=== PATIENT | female | born 1945 | race Caucasian/White ===

== ENCOUNTER 2021-12-13 00:09 | Emergency (ER) | payer MEDICARE, SELFPAY ==
--- NOTE | 2021-12-13 00:17 | ECG_ITS ---
Test Reason : SYNCOPE Blood Pressure : / mmHG Vent. Rate : 081 BPM Atrial Rate : 081 BPM P-R Int : 142 ms QRS Dur : 086 ms QT Int : 386 ms P-R-T Axes : 074 054 084 degrees QTc Int : 448 ms Normal sinus rhythm Nonspecific ST abnormality Abnormal ECG No previous ECGs available Referred By: Generic ED Physician Electronically Signed By:AGUSTÍN EUGENE MD
[2021-12-13 00:18] VITALS: BP 150/74; BP 155/71; PULSE 80; PULSE 82; RESP 16; TEMP 36.9; O2SAT 97; BMI 24.9
--- NOTE | 2021-12-13 00:25 | PC.NURSE ---
pt a&o, no sob or chest pain. pt placed on monitor, labs drawn and Ekg completed.
[2021-12-13 00:32] VITALS: BP 150/69; PULSE 76
[2021-12-13 00:32] LABS: Hematocrit 35.7 % (37.0-47.0); Hemoglobin 11.1 g/dl (12.0-16.0); Mean Corpuscular HGB Conc 31.1 g/dl (31.0-35.0); Mean Corpuscular Hemoglobin 27.5 pg (27.0-33.0); Mean Corpuscular Volume 88.4 fL (80.0-98.0); Mean Platelet Volume 9.5 fL (9.4-12.3); Platelet Count 479 X10*3/uL (160-400); Red Blood Count 4.04 X10*6/uL (4.20-5.50); Red Cell Distribution Width 16.4 % (11.0-16.0); White Blood Count 9.4 X10*3/uL (4.8-10.8)
[2021-12-13 00:33] VITALS: BP 137/75; BP 157/80; PULSE 84; PULSE 86
[2021-12-13 00:48] LABS: Troponin-I High Sensitivity < 3.5 ng/L (<3.5-17.0)
[2021-12-13 00:49] LABS: Alanine Aminotransferase 8 U/L (0-31); Albumin Level 4.4 g/dL (3.5-5.0); Alkaline Phosphatase 69 U/L (39-117); Anion Gap 13 (12-20); Aspartate Amino Transferase 16 U/L (5-31); Bilirubin Total 0.4 mg/dL (0.0-1.0); Blood Urea Nitrogen 19 mg/dL (9-16); Calcium 10.5 mg/dL (8.4-10.2); Carbon Dioxide 23 mmol/L (22-29); Chloride 106 mmol/L (96-108); Creatinine Clr Calc Pharmacy 34.9; Estimated Glomerular Filt Rate 51; Glucose Random 112 mg/dL (60-115); Potassium 4.3 mmol/L (3.3-5.1); Sodium 138 mmol/L (135-145); Total Protein 7.2 g/dL (6.5-8.0)
[2021-12-13 01:42] LABS: Ethanol < 10 mg/dL
--- NOTE | 2021-12-13 02:11 | ED_ITS ---
HPI - Syncope General Chief Complaint: Dizziness Stated Complaint: Syncope Time Seen by Provider: 12/13/21 00:22 Source: patient Mode of arrival: EMS History of Present Illness HPI narrative: 76-year-old female brought in by EMS after patient states she was sitting on a bench smoking a cigarette with a friend, got up to with cigarette out and sat back down and then began feeling ill and as she was walking back to her apartment she states she had to sit down abruptly, she did not fall, and then says that she woke up and her friend was calling the ambulance. She denies any prodrome of chest pain/palpitations/shortness of breath/dizzi ness/diaphoresis/nausea and states that she had no symptoms afterwards either. She denies any recent fever, chills, denies alcohol intake and denies any illicit drugs. Related Data Allergies Allergy/AdvReac Type Severity Reaction Status Date / Time oxycodone [OxyContin] Allergy Unknown hives Verified 03/13/13 00:00 From OXYCONTIN Allergy Unknown HIVES Uncoded 01/25/20 15:03 Review of Systems Review of Systems: Pertinent positives and negatives as stated in HPI 10 point review of systems is otherwise negative. PMFSH Past Medical History Source: nursing notes reviewed Social History Social History Advance Directives: No Physical Exam Vital Signs: Vital Signs: Last Vital Signs Temp 98.4 F 12/13/21 00:18 Pulse 84 12/13/21 00:33 Resp 16 12/13/21 00:18 BP 157/80 H 12/13/21 00:33 Pulse Ox 97 12/13/21 00:18 O2 Del Method 12/13/21 00:18 BMI result Body Mass Index 24.9 VITAL SIGNS: Reviewed. GENERAL: Elderly, well nourished, in no acute distress. HEAD: Normocephalic/atraumatic EYES: PERRLA, EOMI EARS: Ext canals without abnormality OROPHARYNX: no oral lesions noted, posterior pharynx clear LUNGS: Normal breath sounds. No adventitious sounds or accessory muscle use. SpO2<97> CARDIOVASCULAR: Regular rate and rhythm without noted murmurs, no carotid bruit, no JVD or lower extremity edema. ABDOMEN: Soft, non-tender, non-distended with bowel sounds. MUSCULOSKELETAL: No tenderness, deformities, or effusions noted on gross inspection. EXTREMITIES: No cyanosis, clubbing or edema. SKIN: Inspection of the skin reveals no rashes NEUROLOGIC: Alert and oriented x 4. Strength and sensation to light touch were grossly intact x 4. Course Course Course Narrative: 76-year-old female with 2 history and clinical presentation consistent with suspected vasovagal syncope, orthostatics were negative, no evidence on review of all investigations to suggest infection or new onset anemia patient states that she feels well and she ambulated around the department without difficulty. Suspect that patient had a vasovagal syncopal event. MDM - Syncope Lab Data Result diagrams: 12/13/21 00:24 12/13/21 00:24 Labs: Lab Results 12/13/21 12/13/21 12/13/21 Range/Units 00:24 00:24 00:24 WBC 9.4 (4.8-10.8) X10*3/uL RBC 4.04 L (4.20-5.50) X10*6/uL Hgb 11.1 L (12.0-16.0) g/dl Hct 35.7 L (37.0-47.0) % MCV 88.4 (80.0-98.0) fL MCH 27.5 (27.0-33.0) pg MCHC 31.1 (31.0-35.0) g/dl RDW 16.4 H (11.0-16.0) % Plt Count 479 H (160-400) X10*3/uL MPV 9.5 (9.4-12.3) fL Absolute Nucleated RBC 0.000 (0.0-0.012) X10*3/uL Nucleated RBC % (auto) 0.0 (0.0-0.2) /100WBC Sodium 138 (135-145) mmol/L Potassium 4.3 (3.3-5.1) mmol/L Chloride 106 (96-108) mmol/L Carbon Dioxide 23 (22-29) mmol/L Anion Gap 13 (12-20) BUN 19 H (9-16) mg/dL Creatinine 1.06 (0.5-1.4) mg/dL Estim Creat Clear Calc 34.9 Estimated GFR 51 Random Glucose 112 (60-115) mg/dL Calcium 10.5 H (8.4-10.2) mg/dL Total Bilirubin 0.4 (0.0-1.0) mg/dL AST 16 (5-31) U/L ALT 8 (0-31) U/L Alkaline Phosphatase 69 (39-117) U/L Troponin I High Sens < 3.5 (<3.5-17.0) ng/L Total Protein 7.2 (6.5-8.0) g/dL Albumin 4.4 (3.5-5.0) g/dL Ethyl Alcohol < 10 mg/dL ECG Data Attestation: I personally reviewed and interpreted this ECG as follows: Prior ECG tracings: not available for review Interpretation: Normal sinus rhythm, HR-81, no STEMI, AK/QRS/QTC are within normal limits. Discharge Plan Discharge Clinical Impression: Syncope, vasovagal Patient Disposition: Home, Self-Care Instructions: Syncope (ED) Additional Instructions: Follow-up with your primary care doctor on Wednesday morning. Return to the ER for worsening symptoms.
== END 2021-12-13 02:34 | disposition home or self-care (01) ==
PROVIDERS: Emergency Provider Student in an Organized Health Care Education/Training Program
DX: R55 Syncope and collapse (principal); F17.210 Nicotine dependence, cigarettes, uncomplicated
CPT/HCPCS: 36415; 80053; 82077; 84484; 85027; 93005; 99283

== ENCOUNTER 2022-02-04 18:05 | Observation (INO) | payer MEDICARE, SELFPAY ==
--- NOTE | ~2022-02-04 | XR_ITS ---
EXAMINATION: XR CHEST CLINICAL INFORMATION: Pneumonia COMPARISON: Prior chest January 2016 TECHNIQUE: 2 views of the chest were obtained. FINDINGS: Minimal linear density in the right base compatible scarring and/or discoid atelectasis not seen previously. Lungs otherwise clear. No effusions Calcification of the dorsal aorta unchanged. Cardiomediastinal and otherwise unremarkable. Bone and soft tissues: There are moderate compression fractures of 2 adjacent mid thoracic vertebral bodies possibly representing T6 and T7 new compared with the x-ray in 2016. XR/XR chest 2V IMPRESSION: No definite acute disease. Minimal scarring and/or discoid atelectasis at the right base. Compression fractures midthoracic vertebral body age indeterminate but new compared with prior x-ray 2016
[2022-02-04 19:48] VITALS: BP 175/81; PULSE 102; RESP 20; TEMP 36.9; O2SAT 98; BMI 24.7
[2022-02-04 20:09] LABS: Basophils Percent Auto 0.3 % (0-2); Eosinophils Absolute Auto 0.1 X10*3/uL (0.0-0.4); Eosinophils Percent Auto 0.9 % (0-4); Hemoglobin 7.4 g/dl (12.0-16.0); Imm Gran Abs Auto 0.04 X10*3/uL (0.00-0.03); Imm Gran Pct Auto 0.4 % (0.0-0.4); Lymphocytes Absolute Auto 1.2 X10*3/uL (1.2-4.9); Lymphocytes Percent Auto 11.4 % (20-40); MANUAL DIFF FLAG NO; Mean Corpuscular HGB Conc 29.6 g/dl (31.0-35.0); Mean Corpuscular Hemoglobin 27.9 pg (27.0-33.0); Mean Corpuscular Volume 94.3 fL (80.0-98.0); Mean Platelet Volume 9.2 fL (9.4-12.3); Monocytes Absolute Auto 0.7 X10*3/uL (0.1-1.2); Monocytes Percent Auto 6.5 % (2-11); Neutrophils Absolute Auto 8.1 x10*3/uL (2.0-8.3); Neutrophils Percent Auto 80.5 % (45-73); Platelet Count 680 X10*3/uL (160-400); Red Blood Count 2.65 X10*6/uL (4.20-5.50); Red Cell Distribution Width 20.1 % (11.0-16.0); White Blood Count 10.1 X10*3/uL (4.8-10.8)
[2022-02-04 20:27] LABS: COVID-19 Test Negative (Negative)
[2022-02-04 20:29] LABS: IDNOW Serial# 16C4AD1C; Influenza A Negative (Negative); Influenza B2 Negative (Negative)
[2022-02-04 20:30] LABS: Alanine Aminotransferase 13 U/L (0-31); Albumin Level 4.1 g/dL (3.5-5.0); Alkaline Phosphatase 67 U/L (39-117); Anion Gap 19 (12-20); Aspartate Amino Transferase 16 U/L (5-31); Bilirubin Total < 0.2 mg/dL (0.0-1.0); Blood Urea Nitrogen 15 mg/dL (9-16); Calcium 8.6 mg/dL (8.4-10.2); Carbon Dioxide 18 mmol/L (22-29); Chloride 106 mmol/L (96-108); Creatinine Clr Calc Pharmacy 58.2; Estimated Glomerular Filt Rate > 60; Glucose Random 100 mg/dL (60-115); Potassium 4.8 mmol/L (3.3-5.1); Sodium 138 mmol/L (135-145); Total Protein 6.7 g/dL (6.5-8.0)
[2022-02-05] VITALS (22 sets, daily range): BP systolic 101–172; BP diastolic 59–88; PULSE 87–108; RESP 16–28; TEMP 36.2–37.1; O2SAT 94–99; BMI 24.5
[2022-02-05] MEDS: LORazepam 1 MG TABLET PO (06:11)
--- NOTE | 2022-02-05 06:26 | ED_ITS ---
HPI - General Adult General Chief complaint: Upper Respiratory Symptoms Stated complaint: Sob Time Seen by Provider: 02/05/22 05:10 Source: patient Mode of arrival: ambulatory Limitations: no limitations History of Present Illness HPI narrative: 76-year-old female who presents emergency department for evaluation weakness, shortness of breath, dyspnea on exertion, nonproductive cough , nausea, vomiting and black diarrheal stool. Patient states that she had her influenza vaccination on 01/21/2022. She states that on 01/22/2022 she developed nausea and vomited several times. She denies any blood in the emesis. She also states that she developed loose, diarrheal stools which she describes as dark black. She states she has had black stools in the past and she takes iron. She states that the diarrhea resolved yesterday. She complains of feeling very weak, she has had intermittent headaches, she has felt short of breath and has had dyspnea on exertion. She states she has a cough which is nonproductive. The patient also states that she has restless leg syndrome in her legs have been very restless and she was unable to sleep. Related Data Allergies Allergy/AdvReac Type Severity Reaction Status Date / Time oxycodone [OxyContin] Allergy Unknown hives Verified 03/13/13 00:00 From OXYCONTIN Allergy Unknown HIVES Uncoded 01/25/20 15:03 Review of Systems Review of Systems: Yes all other systems are reviewed and are negative [facility] Past Medical History [facility] Narrative: past medical history: Hypertension, hyperlipidemia, rheumatoid arthritis, osteoporosis, restless leg syndrome, bleeding stomach ulcer 2019. Past surgical history: Neck surgery at [facility] on 01/12/2022, hysterectomy, right hip ORIF 2019. Social history: She smokes 1 pack of cigarettes per day times 56 years. She denies alcohol use. She denies drug use. Social History Social History Alcohol intake: never Patient Tobacco Use Status: Current everyday Tobacco user Use of substances other than those prescribed or required for medical reasons: No Advance Directives: No Advance Directives Information Provided: Yes Physical Exam ED Vital Signs: Vital Signs - 24 hr 02/04/22 19:48 02/05/22 01:15 02/05/22 02:10 Temperature 98.4 F 97.8 F Pulse Rate 102 H 100 103 H Respiratory Rate 20 19 22 H Blood Pressure 175/81 H 148/77 H 168/80 H Pulse Oximetry 98 99 98 Oxygen Delivery Method Room Air Room Air Room Air 02/05/22 03:03 02/05/22 04:02 02/05/22 06:20 Temperature Pulse Rate 87 87 Respiratory Rate 16 22 H Blood Pressure 156/87 H 168/88 H Pulse Oximetry 98 96 97 Oxygen Delivery Method Room Air Room Air Room Air BMI result Body Mass Index 24.7 Const General: cooperative and no acute distress Orientation/consciousness: oriented to person and oriented to place Limitations: no limitations HENMT Head: Yes normal to inspection, Yes normocephalic and Yes atraumatic Ears: external ears normal General nose exam: Normal external nose present Face and sinus: Yes normal facial exam Mouth: Normal oral and palatal mucosa present Throat: Yes posterior oropharynx normal Eyes General: appearance normal, both eyes and all related structures Pupils: Equal, round and reactive pupils present Neck Neck: Yes normal visual inspection, Yes no lymphadenopathy, Yes trachea midline and Yes supple Chest Chest palpation & inspection: normal inspection of the chest and normal palpation of entire chest wall Resp Effort & Inspection: normal respiratory effort and able to speak in complete sen tences Auscultation: clear to auscultation bilaterally Cardio Rate: regular rate Rhythm: regular rhythm Heart sounds: S1 normal heart sound present, S2 normal heart sound present and no murmurs GI Inspection: Yes normal to inspection Palpation (GI): Soft to palpation, nontender and no guarding Auscultation: normal bowel sounds Rectal Exam - Female: heme positive stool ( Brown stool, trace Hemoccult- positive) Rectal exam heme positive - female: trace General: Yes no CVA tenderness Back/Spine/Pelvis Back: no CVA tenderness Skin General skin exam: no rashes or lesions noted Neuro General: oriented to person and oriented to place Cranial nerves: Yes CN's II-XII intact bilaterally and Yes Equal, round and reactive pupils present Cognition (Neuro): normal cognition Motor exam (neuro): 5/5 motor strength present throughout Extrem General: Yes normal to inspection Psych Appearance: grossly normal Speech and movement: Normal speech and movement present Affect: normal affect Attitude: cooperative Thought process: Normal thought process present Thought content: Normal thought content present Course Course Course Narrative: 76-year-old female who presents emergency department for evaluation of weakness, shortness of breath, dyspnea on exertion, nonproductive cough , naus ea, vomiting and black diarrheal stools. vital signs revealed elevated blood pressure of 175/81 and elevated pulse of 102 otherwise unremarkable. Patient's abdominal exam revealed no tenderness, rectal exam revealed brown stool which was trace Hemoccult positive. Laboratory evaluation revealed a low H&H of 7.4 and 25 with a normal MCV of 94. This is compared to an H&H on 12/13/2021 11 and 35.7. Patient's CO2 was low at 18. COVID-19 and influenza were negative. Given the significant drop in hematocrit and her trace Hemoccult stools, concerned that the patient's dark black diarrhea may have been secondary to an upper GI bleed and I did discuss this with the patient. I did order 1 unit of packed red blood cells to be transfused. Patient was also given Protonix 80 mg IV given her history of gastric ulcer bleed. I will discuss admission with the covering hospitalist. [id number]: I did discuss the patient's presentation with the covering hospitalist, Dr. Powell who will admit the patient. He requested I consult Gastroenterology and I did discuss the patient's presentation with Dr. Tafoya who saw the patient in the emergency department. Dr. Tafoya wants the patient to be NPO and he will try to do an endoscopy on her today. Medical Decision Making Lab Data Result diagrams: 02/04/22 20:05 02/04/22 20:05 Labs: Lab Results 02/04/22 02/04/22 02/04/22 Range/Units 20:05 20:05 20:05 WBC 10.1 (4.8-10.8) X10*3/uL RBC 2.65 L D (4.20-5.50) X10*6/uL Hgb 7.4 L D (12.0-16.0) g/dl Hct 25.0 L D (37.0-47.0) % MCV 94.3 (80.0-98.0) fL MCH 27.9 (27.0-33.0) pg MCHC 29.6 L (31.0-35.0) g/dl RDW 20.1 H (11.0-16.0) % Plt Count 680 H D (160-400) X10*3/uL MPV 9.2 L (9.4-12.3) fL Immature Gran % (Auto) 0.4 (0.0-0.4) % Neut % (Auto) 80.5 H (45-73) % Lymph % (Auto) 11.4 L (20-40) % [place] % (Auto) 6.5 (2-11) % Eos % (Auto) 0.9 (0-4) % Baso % (Auto) 0.3 (0-2) % Lymph # (Auto) 1.2 (1.2-4.9) X10*3/uL [place] # (Auto) 0.7 (0.1-1.2) X10*3/uL Eos # (Auto) 0.1 (0.0-0.4) X10*3/uL Baso # (Auto) 0.0 (0.0-0.2) X10*3/uL Abs Immat Gran (auto) 0.04 H (0.00-0.03) X10*3/uL Absolute Neuts (auto) 8.1 (2.0-8.3) x10*3/uL Absolute Nucleated RBC 0.000 (0.0-0.012) X10*3/uL Nucleated RBC % (auto) 0.0 (0.0-0.2) /100WBC Sodium 138 (135-145) mmol/L Potassium 4.8 (3.3-5.1) mmol/L Chloride 106 (96-108) mmol/L Carbon Dioxide 18 L (22-29) mmol/L Anion Gap 19 (12-20) BUN 15 (9-16) mg/dL Creatinine 0.69 (0.5-1.4) mg/dL Estim Creat Clear Calc 58.2 Estimated GFR > 60 Random Glucose 100 (60-115) mg/dL Calcium 8.6 D (8.4-10.2) mg/dL Total Bilirubin < 0.2 (0.0-1.0) mg/dL AST 16 (5-31) U/L ALT 13 (0-31) U/L Alkaline Phosphatase 67 (39-117) U/L Total Protein 6.7 (6.5-8.0) g/dL Albumin 4.1 (3.5-5.0) g/dL COVID-19 (SHIMA) (Negative) COVID-19 Clin Com Influenza Type A (CRISTIN) Negative (Negative) Influenza Type B (CRISTIN) Negative (Negative) Influenza A & B Note See Note 02/04/22 Range/Units 20:05 WBC (4.8-10.8) X10*3/uL RBC (4.20-5.50) X10*6/uL Hgb (12.0-16.0) g/dl Hct (37.0-47.0) % MCV (80.0-98.0) fL MCH (27.0-33.0) pg MCHC (31.0-35.0) g/dl RDW (11.0-16.0) % Plt Count (160-400) X10*3/uL MPV (9.4-12.3) fL Immature Gran % (Auto) (0.0-0.4) % Neut % (Auto) (45-73) % Lymph % (Auto) (20-40) % [place] % (Auto) (2-11) % Eos % (Auto) (0-4) % Baso % (Auto) (0-2) % Lymph # (Auto) (1.2-4.9) X10*3/uL [place] # (Auto) (0.1-1.2) X10*3/uL Eos # (Auto) (0.0-0.4) X10*3/uL Baso # (Auto) (0.0-0.2) X10*3/uL Abs Immat Gran (auto) (0.00-0.03) X10*3/uL Absolute Neuts (auto) (2.0-8.3) x10*3/uL Absolute Nucleated RBC (0.0-0.012) X10*3/uL Nucleated RBC % (auto) (0.0-0.2) /100WBC Sodium (135-145) mmol/L Potassium (3.3-5.1) mmol/L Chloride (96-108) mmol/L Carbon Dioxide (22-29) mmol/L Anion Gap (12-20) BUN (9-16) mg/dL Creatinine (0.5-1.4) mg/dL Estim Creat Clear Calc Estimated GFR Random Glucose (60-115) mg/dL Calcium (8.4-10.2) mg/dL Total Bilirubin (0.0-1.0) mg/dL AST (5-31) U/L ALT (0-31) U/L Alkaline Phosphatase (39-117) U/L Total Protein (6.5-8.0) g/dL Albumin (3.5-5.0) g/dL COVID-19 (SHIMA) Negative (Negative) COVID-19 Clin Com See Note Influenza Type A (CRISTIN) (Negative) Influenza Type B (CRISTIN) (Negative) Influenza A & B Note Discharge Plan Discharge Clinical Impression: Acute GI bleeding, Anemia Patient Disposition: Admitted As Inpatient
[2022-02-05] MEDS: Pantoprazole Sodium 40 MG/10 ML VIAL 80 MG IVPUSH (08:25)
--- NOTE | 2022-02-05 08:28 | PM.EVENT ---
Event Note Date of Service: 02/05/22 Event Note: GI pt seen and examined, discussed with Dr Min, consult dicatated. We will evaluate her acute anemia and black stools with endoscopy today. She is aware of risks and benefits and agrees to proceed.
--- NOTE | 2022-02-05 08:51 | P.HPHOSP_ITS ---
History of Present Illness Date of Service: 02/05/22 Chief Complaint: shortness of breath This is a 76 year old F with a PMH of HTN, HLD, RA, Osteoporosis, RLS, peptic ulcer dx with bleeding in 2019 who presents to the ED with compalints of generalized weakness, shortness of breath with a non-productive cough with nausea and vomiting (non bloody) with dark stools. She reports that her symptoms have been on going for roughly the last 2 weeks since she received her influenza vaccination. She denies any bright red blood per rectum, but does report black stool which she has had before. However, she attributes them to being on iron supplementation. She denies any abdominal pain. ED work up revealed an h/h of 7.4/ (decreased from in December 2021). She has been given IV protonix, 1 unit of PRBC has been ordered. She has been seen by GI with plans for endoscopic evaluation. Review of Systems Review of Systems: negative except HPI [facility] Medical History (Updated 02/05/22 @ 09:40 by Dorota Werner RN) COPD (chronic obstructive pulmonary disease) Hypertension Osteoporosis Restless leg syndrome Pertinent family history: Obtained from previous records -- anemia in sister Surgical History (Updated 02/05/22 @ 09:36 by Dorota Werner RN) H/O neck surgery Status post hip surgery Social History Alcohol intake: never Patient Tobacco Use Status: Current everyday Tobacco user Tobacco use type: Cigarette Cigarette Packs Per Day: 0.5 Cigarettes Per Day: 10.0 Years Smoked: 56 Use of substances other than those prescribed or required for medical reasons: No Are you DNR?: No Advance Directives: No Advance Directives Information Provided: Yes Patient : No Meds Allergies Allergy/AdvReac Type Severity Reaction Status Date / Time oxycodone [OxyContin] Allergy Unknown hives Verified 03/13/13 00:00 From OXYCONTIN Allergy Unknown HIVES Uncoded 01/25/20 15:03 Active Medications: Current Medications Ondansetron HCl (Ondansetron Hcl 4 Mg/2 Ml Vial) 4 mg IVPUSH ONCE PRN PRN Reason: Nausea and Vomiting Home Medications Medication Instructions Recorded Confirmed Last Taken Type amlodipine 2.5 mg tablet 2.5 mg PO DAILY 02/05/22 02/05/22 Unknown History methotrexate sodium 2.5 mg tablet 4 tab PO QWEEK 02/05/22 02/05/22 Unknown History omeprazole 20 mg capsule,delayed 20 mg PO DAILY 02/05/22 02/05/22 Unknown History release pravastatin 40 mg tablet 40 mg PO DAILY 02/05/22 02/05/22 Unknown History ropinirole 1 mg tablet 2 mg PO TID 02/05/22 02/05/22 Unknown History Physical Exam Vital Signs and Narrative: Vital Signs: Last Vital Signs Temp 97.8 F 02/05/22 01:15 Pulse 104 H 02/05/22 08:27 Resp 18 02/05/22 08:27 BP 144/83 H 02/05/22 08:27 Pulse Ox 97 02/05/22 08:27 O2 Del Method 02/05/22 08:27 BMI result Body Mass Index 24.7 Const: Other: Constitutional - Awake and Alert, pacing in her room, appears pale Eyes - PERRLA, EOMI Cardiovascular - S1S2, RRR, No edema Respiratory - Normal lung expansion, Normal respiratory effort, No respiratory distress, CTA bilaterally Gastrointestinal - NT / ND; +BS; No rebound or guarding - No CVA tenderness Extremities - no calf tenderness bilaterally, no swelling Musculoskeletal - Normal inspection, normal ROM Skin - Warm/Dry Neurological - Alert & oriented x3, No focal deficit Psychological - Appropriate affect Results Labs CBC and Chem 7: 02/04/22 20:05 02/04/22 20:05 Labs: Laboratory Results - last 24 hr 02/04/22 02/04/22 02/04/22 20:05 20:05 20:05 MCV 94.3 MCH 27.9 MCHC 29.6 L RDW 20.1 H Plt Count 680 H D MPV 9.2 L Immature Gran % (Auto) 0.4 Neut % (Auto) 80.5 H Lymph % (Auto) 11.4 L [place] % (Auto) 6.5 Eos % (Auto) 0.9 Baso % (Auto) 0.3 Lymph # (Auto) 1.2 [place] # (Auto) 0.7 Eos # (Auto) 0.1 Baso # (Auto) 0.0 Abs Immat Gran (auto) 0.04 H Absolute Neuts (auto) 8.1 Absolute Nucleated RBC 0.000 Nucleated RBC % (auto) 0.0 Anion Gap 19 Estim Creat Clear Calc 58.2 Estimated GFR > 60 Random Glucose 100 Calcium 8.6 D Total Bilirubin < 0.2 AST 16 ALT 13 Alkaline Phosphatase 67 Total Protein 6.7 Albumin 4.1 COVID-19 (SHIMA) COVID-19 Clin Com Influenza Type A (CRISTIN) Negative Influenza Type B (CRISTIN) Negative Influenza A & B Note See Note Crossmatch 02/04/22 02/05/22 20:05 07:56 MCV MCH MCHC RDW Plt Count MPV Immature Gran % (Auto) Neut % (Auto) Lymph % (Auto) [place] % (Auto) Eos % (Auto) Baso % (Auto) Lymph # (Auto) [place] # (Auto) Eos # (Auto) Baso # (Auto) Abs Immat Gran (auto) Absolute Neuts (auto) Absolute Nucleated RBC Nucleated RBC % (auto) Anion Gap Estim Creat Clear Calc Estimated GFR Random Glucose Calcium Total Bilirubin AST ALT Alkaline Phosphatase Total Protein Albumin COVID-19 (SHIMA) Negative COVID-19 Clin Com See Note Influenza Type A (CRISTIN) Influenza Type B (CRISTIN) Influenza A & B Note Crossmatch See Detail Imaging Radiologist's Impressions: Impressions Chest X-Ray 02/04/22 20:23 IMPRESSION: No definite acute disease. Minimal scarring and/or discoid atelectasis at the right base. Compression fractures midthoracic vertebral body age indeterminate but new compared with prior x-ray 2015 Assessment and Plan (1) Acute GI bleeding: Status: Acute (2) Anemia: Status: Acute Plan 76 yo F with multiple medical problems who presents with a 2 week history of exertional fatigue, shortness of breath and cough. She is found to have occult blood testing positive with anemia which has significant dropped since her last values. She is suspected to have an upper GI bleed and will be admitted for further work up and treatment. 1. Acute blood loss anemia due to suspected upper GI bleed 1a. symptomatic anemia Seen by GI with plans to scope today Keep NPO tranfuse 1 unit IV PPI trend h/h 2. RLS requip 3. HTN hold bp meds today and restart after scope 4. HLD statin Full Code DVT pptx, mechanical due to suspected GI bleed. Quality Stroke Does the patient have a stroke diagnosis?: No VTE Prior VTE?: No VTE Risk Level:: Medical - moderate - high VTE Device Contraindication: N/A - Device Ordered VTE Drug Contraindication: Treatment Not Tolerated
--- NOTE | 2022-02-05 08:56 | P.CONAN_ITS ---
[facility] Active Problems Active Problems: All Active Problems (Updated 02/05/22 @ 08:29 by Dorota Werner RN) Acute GI bleeding (Acute) Anemia (Acute)arthritis dyslipidemia hypertension acid reflux Past Medical History Medical History Hypertension Patient : No Family History Family history of problems with anesthesia: No Surgical History Surgical History H/O neck surgery History of Problems with Anesthesia: No Social History Social History Alcohol intake: never Patient Tobacco Use Status: Current everyday Tobacco user Tobacco use type: Cigarette Cigarette Packs Per Day: 0.5 Cigarettes Per Day: 10.0 Years Smoked: 56 Use of substances other than those prescribed or required for medical reasons: No Are you DNR?: No Advance Directives: No Advance Directives Information Provided: Yes Patient : No Meds Allergies Allergy/AdvReac Type Severity Reaction Status Date / Time oxycodone [OxyContin] Allergy Unknown hives Verified 03/13/13 00:00 From OXYCONTIN Allergy Unknown HIVES Uncoded 01/25/20 15:03 Active Medications: Current Medications Acetaminophen (Acetaminophen 325 Mg Tablet) 650 mg PO Q6H PRN PRN Reason: Pain, Mild (Pain Scale 1-3) Ondansetron HCl (Ondansetron Hcl 4 Mg/2 Ml Vial) 4 mg IVPUSH ONCE PRN PRN Reason: Nausea and Vomiting Ondansetron HCl (Ondansetron Hcl 4 Mg/2 Ml Vial) 4 mg IVPUSH Q8H PRN PRN Reason: Nausea and Vomiting Sodium Chloride (0.9 % Sodium Chloride Flush 3 Ml Syringe) 3 ml IVFLUSH [facility] Home Medications Medication Instructions Recorded Confirmed Last Taken Type amlodipine 2.5 mg tablet 2.5 mg PO DAILY 02/05/22 02/05/22 Unknown History methotrexate sodium 2.5 mg tablet 4 tab PO QWEEK 02/05/22 02/05/22 Unknown History omeprazole 20 mg capsule,delayed 20 mg PO DAILY 02/05/22 02/05/22 Unknown History release pravastatin 40 mg tablet 40 mg PO DAILY 02/05/22 02/05/22 Unknown History ropinirole 1 mg tablet 2 mg PO TID 02/05/22 02/05/22 Unknown History Exam Exam Date and Time: February 05, 2022 0856 Height,Weight and Vital Signs: Height 5 ft 1 in Weight 59.3 kg Last Vital Signs Temp 97.8 F 02/05/22 01:15 Pulse 104 H 02/05/22 08:27 Resp 18 02/05/22 08:27 BP 144/83 H 02/05/22 08:27 Pulse Ox 97 02/05/22 08:27 O2 Del Method 02/05/22 08:27 Pertinent Lab Results Pertinent Lab Results: Laboratory Tests 02/04/22 02/04/22 02/04/22 20:05 20:05 20:05 WBC 10.1 RBC 2.65 L D Hgb 7.4 L D Hct 25.0 L D MCV 94.3 MCH 27.9 MCHC 29.6 L RDW 20.1 H Plt Count 680 H D MPV 9.2 L Immature Gran % (Auto) 0.4 Neut % (Auto) 80.5 H Lymph % (Auto) 11.4 L Brantley % (Auto) 6.5 Eos % (Auto) 0.9 Baso % (Auto) 0.3 Lymph # (Auto) 1.2 Brantley # (Auto) 0.7 Eos # (Auto) 0.1 Baso # (Auto) 0.0 Abs Immat Gran (auto) 0.04 H Absolute Neuts (auto) 8.1 Absolute Nucleated RBC 0.000 Nucleated RBC % (auto) 0.0 Sodium 138 Potassium 4.8 Chloride 106 Carbon Dioxide 18 L Anion Gap 19 BUN 15 Creatinine 0.69 Estim Creat Clear Calc 58.2 Estimated GFR > 60 Random Glucose 100 Calcium 8.6 D Total Bilirubin < 0.2 AST 16 ALT 13 Alkaline Phosphatase 67 Total Protein 6.7 Albumin 4.1 COVID-19 (SHIMA) COVID-19 Clin Com Influenza Type A (CRISTIN) Negative Influenza Type B (CRISTIN) Negative Influenza A & B Note See Note Crossmatch 02/04/22 02/05/22 20:05 07:56 WBC RBC Hgb Hct MCV MCH MCHC RDW Plt Count MPV Immature Gran % (Auto) Neut % (Auto) Lymph % (Auto) Brantley % (Auto) Eos % (Auto) Baso % (Auto) Lymph # (Auto) Brantley # (Auto) Eos # (Auto) Baso # (Auto) Abs Immat Gran (auto) Absolute Neuts (auto) Absolute Nucleated RBC Nucleated RBC % (auto) Sodium Potassium Chloride Carbon Dioxide Anion Gap BUN Creatinine Estim Creat Clear Calc Estimated GFR Random Glucose Calcium Total Bilirubin AST ALT Alkaline Phosphatase Total Protein Albumin COVID-19 (SHIMA) Negative COVID-19 Clin Com See Note Influenza Type A (CRISTIN) Influenza Type B (CRISTIN) Influenza A & B Note Crossmatch See Detail Airway Mallampati Class: III TM Dist: >3cm Neck ROM: Full Denture: Upper and Lower Heart: rrr Lungs: clear Assessment and Plan Final Anesthetic Review Family History of Problems with Anesthesia: No History of Problems with Anesthesia: No NPO: Yes ASA Class: III and Emergency Final Preanesthetic Review: No Changes in Pt Med Stat, Meds/Allgs Chart Reviewed, Consent Obtained/Reviewed and Anes Risks/Benef Reviewed Patient Risk: Intermediate Procedure Risk: Low Anesthetic Plan Anesthetic Plan: MAC: Disposition: Standard PACU
--- NOTE | 2022-02-05 08:58 | PC.NURSE ---
call to blood bank re: unit prbc ordered for this pt. antibody + ([facility] states will be a while before blood is ready). Call placed to Dr. Tafoya to verify if he wants blood to be transfusing prior to endoscopy. Due to no active bleed and pt is stable, ok to transfuse after endoscopy.
--- NOTE | 2022-02-05 09:37 | PC.NURSE ---
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 Dr. Chiu anesthesiologist at bedside to eval pt. & aware.warm blankets to legs bilat restless leg syndrome
--- NOTE | 2022-02-05 09:45 | PC.NURSE ---
legs elevated & wrapped with warm blankets. warm blankets tolerated briefly.
--- NOTE | 2022-02-05 09:46 | PC.NURSE ---
2 rails up for safety - pt agrees - for safety for constant movements, c/o discomfort, using rails for reposition. iv wrapped.
--- NOTE | 2022-02-05 10:00 | CONS_ITS ---
DATE OF SERVICE: 02/05/2022 REFERRING PHYSICIAN: Noe Min MD REASON FOR CONSULTATION: GI bleeding. HISTORY OF PRESENT ILLNESS: The patient is a pleasant 76-year-old woman who was evaluated in the emergency department today after presenting with complaints of shortness of breath and weakness as well as black stools. She was vaccinated for the flu on January 21 and then developed nausea and vomiting without hematemesis. Following that, she had black stool that was loose and diarrheal. She does take iron and thought this was the cause of the black stool. She had associated weakness, headaches and malaise as well as some dyspnea on exertion and nonproductive cough. She was evaluated in the emergency department with laboratory studies, which showed a drop in her hematocrit from 35.7 on December 13 to . Stool on rectal examination was described as brown and occult blood positive. The patient does describe a history of prior peptic ulcer disease. She does smoke but denies significant alcohol intake. PAST MEDICAL HISTORY: 1. Peptic ulcer disease. 2. Restless legs syndrome. 3. Hypertension. 4. Hyperlipidemia. 5. Rheumatoid arthritis for which she is on methotrexate but does not take NSAIDs. 6. Osteoporosis. 7. Neck surgery. 8. Hysterectomy. 9. Hip surgery. 10.Hyperparathyroidism, s/p parathyroidectomy. CURRENT MEDICATIONS: Current medication list is reviewed in the chart. ALLERGIES: OXYCODONE. FAMILY HISTORY: This is reviewed with the patient and is noncontributory. SOCIAL HISTORY: There is no current substance abuse. REVIEW OF SYSTEMS: SKIN: No pruritus. HEENT: Negative. CARDIOPULMONARY: No shortness of breath or chest pain. GASTROINTESTINAL: As above. GENITOURINARY: Negative. NEUROPSYCHIATRIC: Negative. PHYSICAL EXAMINATION: GENERAL: Shows a pleasant female who is walking about her exam room in the emergency department because of her restless legs syndrome. VITAL SIGNS: Stable. SKIN: Anicteric. HEENT: Shows no scleral icterus. NECK: Without lymphadenopathy or thyromegaly. LUNGS: Clear. HEART: Shows a regular rate and rhythm S1, S2. No murmur. ABDOMEN: Soft without focal masses or tenderness. Bowel sounds are present. No organomegaly is noted. EXTREMITIES: Without edema. LABORATORY DATA: Reviewed. IMPRESSION: Anemia with history of black stools. This appears consistent with upper GI bleeding, possibly from a peptic ulcer disease. I have discussed endoscopy with including risks and benefits of the procedure. She understands and agrees to proceed. This will be arranged for later today. She will be transfused 1 unit of packed red blood cells for her acute anemia. I would recommend she continue on a proton pump inhibitor, which she has been on as an outpatient. Thanks for asking me to see her. I will follow her in the hospital with you. MD REGAN Diamond/TONY / [id number] MTDD
--- NOTE | 2022-02-05 10:26 | P.BOP_ITS ---
Brief Operative Note Date of Service: 02/05/22 Pre-op diagnosis: anemia, black stool Post-op diagnosis: same Procedure: egd Surgeon: Mayank Tafoya Anesthesia: MAC Was an Business Technology Teacher used for this Procedure?: No Estimated blood loss (mL): 2 Pathology: other Condition: stable Disposition: PACU
--- NOTE | 2022-02-05 10:37 | PM.EVENT ---
Event Note Date of Service: 02/05/22 Event Note: EGD dictated mild gastritis, antral biopsies taken 2 nonbleeding small duodenal avms, no therapy performed. rec advance diet transfuse cont ppi ok for dc later f/u with [facility] at [place].
[2022-02-05] MEDS: rOPINIRole HCL 1 MG TABLET 2 MG PO ×3 (11:00→19:16)
[2022-02-05] MEDS: Acetaminophen 325 MG TABLET 650 MG PO ×2 (14:08→19:17)
[2022-02-06 03:15] VITALS: PULSE 92; RESP 18; TEMP 36.6; O2SAT 98
[2022-02-06 03:43] VITALS: BP 175/83
[2022-02-06] MEDS: Omeprazole 20 MG CAPSULE.DR PO (06:38)
[2022-02-06 07:16] LABS: Hematocrit 27.9 % (37.0-47.0); Hemoglobin 8.4 g/dl (12.0-16.0); Mean Corpuscular HGB Conc 30.1 g/dl (31.0-35.0); Mean Corpuscular Hemoglobin 27.8 pg (27.0-33.0); Mean Corpuscular Volume 92.4 fL (80.0-98.0); Mean Platelet Volume 9.3 fL (9.4-12.3); Platelet Count 544 X10*3/uL (160-400); Red Blood Count 3.02 X10*6/uL (4.20-5.50); Red Cell Distribution Width 19.2 % (11.0-16.0)
--- NOTE | 2022-02-06 07:27 | HO.POSTANES ---
Post Anesthesia Evaluation Post Anesthesia Evaluation Vital Signs: Vital Signs Temp Pulse Resp BP Pulse Ox O2 Del Method 02/06/22 03:43 175/83 H 02/06/22 03:15 97.9 F 92 18 98 Room Air 02/05/22 23:16 98.1 F 100 18 167/79 H 94 Room Air 02/05/22 19:43 98.8 F 101 H 20 153/74 H 96 Room Air Anesthesia: Monitored Mental Status: Awake Pain Control: Satisfactory Nausea/Vomiting: None Hydration: Adequate Anesthesia-Related Issues: No Anes. Related Issues
[2022-02-06 07:35] LABS: Anion Gap 17 (12-20); Blood Urea Nitrogen 9 mg/dL (9-16); Calcium 8.6 mg/dL (8.4-10.2); Carbon Dioxide 19 mmol/L (22-29); Chloride 108 mmol/L (96-108); Creatinine Clr Calc Pharmacy 66.8; Estimated Glomerular Filt Rate > 60; Glucose Random 97 mg/dL (60-115); Potassium 4.2 mmol/L (3.3-5.1); Sodium 140 mmol/L (135-145)
[2022-02-06 07:37] VITALS: BP 178/83; PULSE 93; RESP 18; TEMP 36.4; O2SAT 99
[2022-02-06] MEDS: rOPINIRole HCL 1 MG TABLET 2 MG PO (09:19)
[2022-02-06] MEDS: amLODIPine Besylate 2.5 MG TABLET PO (09:19)
[2022-02-06] MEDS: Pravastatin Sodium 40 MG TABLET PO (09:19)
[2022-02-06] MEDS: 0.9 % Sodium Chloride Flush 3 ML SYRINGE IVFLUSH (09:20)
--- NOTE | 2022-02-06 09:43 | MHC.CM.PN ---
BETITO DELIVERED 02/06 CM MET WITH PT, LIVES ALONE IN AN APARTMENT WITH CAT. INDEPENDENT AT BASELINE, HAS FRIEND THAT ASSISTS HER WITH RIDES. HAS WALKER, CANE AND GRAB BARS IN BR. NO SERVICES AT HOME. - HCP, DECLINES TO NAME ONE. COVID SHARAD X 3 WITH PFIZER. 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
[2022-02-06 10:57] VITALS: BP 136/70; PULSE 85; RESP 16; TEMP 36.3; O2SAT 99
--- NOTE | 2022-02-06 11:41 | P.DS_ITS ---
DS: Providers Provider Date of Service: 02/06/22 Date of admission: 02/05/22 08:49 Date of discharge: 02/06/22 Primary care physician: Jolynn Jasmine NP Consults: 02/05/22 07:39 Consult to Gastroenterology Stat Consulting Provider: Mayank Tafoya Reason for consultation: black diarrheal stool x1 week, H/O gastric bleed, anemia Has provider been notified: Yes 02/05/22 08:49 Consult to Gastroenterology Routine Consulting Provider: Mayank Tafoya Reason for consultation: UGI Has provider been notified: Yes Attending physician on discharge: Jose J Dykes Discharging clinician: Devika Cho DS: Diagnosis Discharge Diagnosis (1) Acute GI bleeding: Status: Acute (2) Anemia: Status: Acute DS: Summary Hospital Course Hospital Course: From H&P on day of admission This is a 76 year old F with a PMH of HTN, HLD, RA, Osteoporosis, RLS, peptic ulcer dx with bleeding in 2019 who presents to the ED with compalints of generalized weakness, shortness of breath with a non- productive cough with nausea and vomiting (non bloody) with dark stools. She reports that her symptoms have been on going for roughly the last 2 weeks since she received her influenza vaccination. She denies any bright red blood per rectum, but does report black stool which she has had before. However, she attributes them to being on iron supplementation. She denies any abdominal pain. ED work up revealed an h/h of 7.4/25 (decreased from 11/35 in December 2021). She has been given IV protonix, 1 unit of PRBC has been ordered. She has been seen by GI with plans for endoscopic evaluation. Acute blood loss anemia secondary to upper GI bleeding/symptomatic anemia Patient was seen in consultation by GI who recommended endoscopy. She underwent endoscopy February 05 showing gastritis and 2 nonbleeding duodenal AVMs which did not require intervention. she received 1 unit of blood and her H/ H has improved and remained stable overnight. Vital signs have remained stable. Shortness of breath has resolved. She will continue her PPI and call to schedule follow-up appointment with GI. Recommend to repeat CBC early next week. Time Spent with Patient Time attestation: Total time spent providing and/or coordinating discharge services: Discharge coordination time: Greater than 30 minutes Quality: Safe Use of Opioids Does Pt have an Active Cancer Diagnosis on the Problem List?: No Quality: Stroke Does the patient have a stroke diagnosis?: No Physical Exam Vital Signs: Vital Signs: Last Vital Signs Temp 97.4 F 02/06/22 10:57 Pulse 85 02/06/22 10:57 Resp 16 02/06/22 10:57 BP 136/70 02/06/22 10:57 Pulse Ox 99 02/06/22 10:57 O2 Del Method 02/06/22 10:57 BMI result Body Mass Index 24.5 Const: General: cooperative, healthy appearing, comfortable, no acute distress, alert and awake Orientation/consciousness: patient oriented x3 Resp: Effort & Inspection: normal respiratory effort and able to speak in complete sentences Auscultation: clear to auscultation bilaterally Cardio: Rate: regular rate Heart sounds: S1 normal heart sound present and S2 normal heart sound present GI: Inspection: No distended Palpation (GI): Soft to palpation and nontender Neuro: General: patient oriented x3 Extrem: General: Yes no pedal edema DS: Data Data Completed and Pending Pending studies at discharge: Pending at discharge 02/05/22 10:19 Surgical [PTH] Routine Labs on day of discharge: Laboratory Results - last 24 hr 02/05/22 02/06/22 02/06/22 07:56 06:13 06:13 WBC 8.0 RBC 3.02 L Hgb 8.4 L Hct 27.9 L MCV 92.4 MCH 27.8 MCHC 30.1 L RDW 19.2 H Plt Count 544 H MPV 9.3 L Absolute Nucleated RBC 0.000 Nucleated RBC % (auto) 0.0 Sodium 140 Potassium 4.2 Chloride 108 Carbon Dioxide 19 L Anion Gap 17 BUN 9 Creatinine 0.60 Estim Creat Clear Calc 66.8 Estimated GFR > 60 Random Glucose 97 Calcium 8.6 Blood Type A Positive Antibody Screen POSITIVE Antibody Identification Inconclusive Antigen Identification K Antigen - NEGATIVE Crossmatch See Detail Crossmatch (AHG) See Detail Blood Bank Comment Technical Discharge Plan Discharge Patient Disposition: Home, Self-Care Referrals: Mayank Tafoya [Physician] - 1 Week Jolynn Jasmine NP [Primary Care Provider] - 1 Week Discharge Medications: Continued ropinirole 1 mg tablet 2 mg PO TID pravastatin 40 mg tablet 40 mg PO DAILY amlodipine 2.5 mg tablet 2.5 mg PO DAILY methotrexate sodium 2.5 mg tablet 4 tab PO QWEEK omeprazole 20 mg capsule,delayed release(DR/EC) 20 mg PO DAILY Discharge Orders: Discharge Order (Routine); Ordered 02/06/22 Ordered By: Devika Cho Activity on Discharge: As tolerated Stand Alone Forms: Patient Portal Discharge page Other Ambulatory Orders: Complete Blood Count no Diff (Routine) Timeframe: [id number] Facility: [facility] - Location: Laboratory Ordered By: Devika Cho Care Plan Goals: see below Health Concerns: anemia - improved after blood transfusion. and levels have remained stable overnight EGD showed mild gastritis and 2 nonbleeding small duaodenal AV malformations Plan of Treatment: continue to take omeprazole repeat CBC next week call to schedule follow up appointment with GI follow up results of biopsies taken from EGD monitor for signs of bleeding avoid NSAIDs, medications like motrin, ibuprofen, aspirin etc Assessment: see discharge summary Discharge Date/Time: 02/06/22 13:00
--- NOTE | 2022-02-06 12:19 | MHC.CM.PN ---
PT TO DC HOME TODAY WITH NO SERVICES FRIEND TO TRANSPORT
--- NOTE | 2022-02-11 03:23 | OP_ITS ---
SURGEON: Mayank Tafoya MD INDICATIONS: Anemia with history of black stools. PREOPERATIVE DIAGNOSIS: POSTOPERATIVE DIAGNOSIS: PROCEDURE PERFORMED: Upper endoscopy with biopsy. ESTIMATED BLOOD LOSS: COMPLICATIONS: ANESTHESIA: Monitored anesthesia care. ASSISTANTS: SPECIMENS: DESCRIPTION OF PROCEDURE: The procedure was done 02/05/2022. History and physical performed. The risks and benefits of the procedure were explained to the patient. Informed consent was obtained. The patient was placed in the left lateral decubitus position. The Olympus video gastroscope was introduced into the esophagus, stomach, and duodenum. Examination was performed. The scope was removed. She tolerated the procedure well and was taken to the recovery area in stable condition. FINDINGS: 1. Esophagus: The esophagus was normal. 2. Stomach: There was a small hiatal hernia. There was mild erythema, mainly in the antrum, consistent with antral gastritis. Biopsies were obtained. There was no GI bleeding. No ulcer was seen. 3. Duodenum: There were 2 small nonbleeding duodenal AVMs measuring 1 to 2 mm. No therapy was performed. IMPRESSION: 1. Gastritis. 2. Duodenal arteriovenous malformations. RECOMMENDATION: 1. Advance diet. 2. Continue proton pump inhibitor. 3. Transfuse p.r.n. 4. She may be discharged later today. She should follow up with her primary GI providers at [facility] at [facility]. MD REGAN Diamond/TONY / [id number]
== END 2022-02-06 13:00 | disposition home or self-care (01) ==
LOC: HO.ED 02-05 08:07 → HO.S3 02-06 07:23 → HO.EDOVER 02-11 10:02 → HO.ED 02-11 10:02
PROVIDERS: Internal Medicine Gastroenterology; Admitting Provider Family Medicine; Emergency Provider Emergency Medicine Emergency Medical Services; PCP Hospitalist; Visit Provider Physician Assistant Medical
PROC: (CPT 43239; principal; 2022-02-05 10:00)
DX: K29.70 Gastritis, unspecified, without bleeding (principal); K44.9 Diaphragmatic hernia without obstruction or gangrene; Q27.33 Arteriovenous malformation of digestive system vessel; D64.9 Anemia, unspecified; R53.1 Weakness; R53.83 Other fatigue; R06.02 Shortness of breath; R11.2 Nausea with vomiting, unspecified; Z20.822 Contact with and (suspected) exposure to COVID-19; I10 Essential (primary) hypertension; E78.5 Hyperlipidemia, unspecified; M06.9 Rheumatoid arthritis, unspecified; F17.210 Nicotine dependence, cigarettes, uncomplicated
CPT/HCPCS: 43239; 36415; 36430; 71046; 80048; 80053; 85025; 85027; 86850; 86870; 86900; 86901; 86902; 86905; 86920; 86922; 87502; 87635; 88305; 88342; 96374; 99218; 99285; P9016

== ENCOUNTER 2022-02-12 11:08 | Outpatient (REF) | payer MEDICARE, SELFPAY ==
[2022-02-12 14:24] LABS: Hematocrit 31.4 % (37.0-47.0); Hemoglobin 9.3 g/dl (12.0-16.0); Mean Corpuscular HGB Conc 29.6 g/dl (31.0-35.0); Mean Platelet Volume 9.5 fL (9.4-12.3); Platelet Count 683 X10*3/uL (160-400); Red Blood Count 3.45 X10*6/uL (4.20-5.50); Red Cell Distribution Width 18.3 % (11.0-16.0); White Blood Count 5.6 X10*3/uL (4.8-10.8)
== END 2022-02-12 11:09 | disposition home or self-care (01) ==
LOC: HO.WFDLDS 11:08
PROVIDERS: Visit Provider Hospitalist
DX: K92.2 Gastrointestinal hemorrhage, unspecified (principal); D64.9 Anemia, unspecified
CPT/HCPCS: 36415; 85027

== ENCOUNTER → 2022-02-18 12:33 | Outpatient (BNVA) | payer MEDICARE, SELFPAY | PROVIDERS: PCP Hospitalist; Referring Provider Hospitalist; Visit Provider Physician Assistant | DX: D64.9 Anemia, unspecified (principal) | CPT/HCPCS: 99202 ==

== ENCOUNTER 2022-02-19 11:25 | Outpatient (REF) | payer MEDICARE, SELFPAY ==
--- NOTE | ~2022-02-19 | MM_ITS ---
EXAMINATION: MM SCREENING DIGITAL BREAST TOMOSYNTHESIS, BILATERAL CLINICAL INFORMATION: Screening. Asymptomatic. No local outside prior exams founds by radiology staff search. The lifetime risk of breast cancer based on the Tyrer-Cuzick Model is 2%. COMPARISON: None (current study represents new baseline exam). TECHNIQUE: Digital breast tomosynthesis is performed in both the craniocaudal and mediolateral oblique views along with computer-aided detection (CAD). Synthesized 2D images are generated from the tomosynthesis. FINDINGS: There are scattered areas of fibroglandular density (ACR BI-RADS breast composition Category b). There are no significant masses, abnormal calcifications, or other abnormalities. No architectural abnormality. No skin thickening or coarsening of the Daniel's ligaments. MM/MM tomosynthesis screening BI IMPRESSION: No mammographic evidence of malignancy. ASSESSMENT: BI-RADS 1: Negative RECOMMENDATION: Routine annual mammography screening. This patient's information was entered into a reminder system with a target due date for their next mammogram.
[2022-02-19 12:02] LABS: MANUAL DIFF FLAG NO
[2022-02-19 12:49] LABS: Basophils Absolute Auto 0.1 X10*3/uL (0.0-0.2); Basophils Percent Auto 1.1 % (0-2); Eosinophils Absolute Auto 0.1 X10*3/uL (0.0-0.4); Hematocrit 30.7 % (37.0-47.0); Hemoglobin 8.9 g/dl (12.0-16.0); Imm Gran Abs Auto 0.02 X10*3/uL (0.00-0.03); Imm Gran Pct Auto 0.4 % (0.0-0.4); Lymphocytes Absolute Auto 1.4 X10*3/uL (1.2-4.9); Mean Corpuscular Hemoglobin 25.9 pg (27.0-33.0); Mean Corpuscular Volume 89.2 fL (80.0-98.0); Mean Platelet Volume 9.3 fL (9.4-12.3); Monocytes Absolute Auto 0.5 X10*3/uL (0.1-1.2); Monocytes Percent Auto 9.6 % (2-11); Neutrophils Absolute Auto 3.6 x10*3/uL (2.0-8.3); Neutrophils Percent Auto 62.9 % (45-73); Platelet Count 712 X10*3/uL (160-400); Red Blood Count 3.44 X10*6/uL (4.20-5.50); Red Cell Distribution Width 17.6 % (11.0-16.0); White Blood Count 5.6 X10*3/uL (4.8-10.8)
[2022-02-19 13:28] LABS: Iron 19 mcg/dL (30-160); Percent Iron Saturation 5 % (15-50); Total Iron Binding Capacity 415 mcg/dL (228-428); Unsaturated Iron Binding 396 ug/dL
[2022-02-19 14:28] LABS: Folate > 20.0 ng/mL (> or = 4.0); Vitamin B12 254 pg/mL (200-900)
[2022-02-23 21:56] LABS: Transglutaminase IgA <1.0 U/mL
[2022-02-27 13:46] LABS: Endomysial IgA Antibody Negative (Negative)
== END 2022-02-19 11:26 | disposition home or self-care (01) ==
LOC: HO.MAMMO 11:25
PROVIDERS: Absent Provider Physician Assistant; PCP Hospitalist; Visit Provider Hospitalist
DX: Z12.31 Encounter for screening mammogram for malignant neoplasm of breast (principal); D64.9 Anemia, unspecified
CPT/HCPCS: 36415; 77063; 77067; 82607; 82746; 83540; 85025; 86231; 86364

== ENCOUNTER 2022-03-23 11:39 | Inpatient (IN) | payer MEDICARE, SELFPAY ==
[2022-03-23] VITALS (8 sets, daily range): BP systolic 84–146; BP diastolic 52–78; PULSE 102–115; RESP 18–26; TEMP 36.7–37.4; O2SAT 90–96; BMI 22.6
--- NOTE | ~2022-03-23 | CT_ITS ---
EXAMINATION: CT ANGIOGRAM OF THE CHEST WITH AND WITHOUT CONTRAST (CT PULMONARY ANGIOGRAM FOR PE) CLINICAL INFORMATION: Reason for Exam syncope COMPARISON: None TECHNIQUE: Prior to contrast administration, noncontrast localization images were obtained. Subsequently, multidetector volumetric imaging was performed from the thoracic inlet to below the diaphragms following the administration of 65 mL Omnipaque 350 intravenous contrast. No contrast reaction reported Sagittal, coronal, and MIP oblique sagittal reformatted images were obtained on the CT workstation, uploaded to PACS, and reviewed. This CT examination was performed using dose optimization techniques as appropriate, variously including the following: *Automated exposure control *Adjustment of mA and/or kV according to patient size (this includes techniques or standardized protocols for targeted exams where dose is matched to indication/reason for exam; i.e. extremities or head) *Use of iterative reconstruction technique Total exam dose-length product 280 mGy-cm FINDINGS: QUALITY OF STUDY/CONTRAST BOLUS: Suboptimal. PULMONARY ARTERIES: No central pulmonary embolus. Slightly limited assessment for detecting segmental pulmonary emboli in the left lower lobe due to motion artifact. Allowing for this, no segmental pulmonary emboli are seen. THORACIC AORTA: No aneurysm or dissection. Moderate vascular calcifications. Direct origin of the left vertebral artery from the aortic arch and conjoined origin of the innominate and left common carotid arteries noted. LUNG: No airspace consolidation. Mild right basilar and lingular subsegmental atelectasis. No pulmonary nodules identified. Minimal foamy secretions or mucous in the distal trachea right mainstem bronchus. Minimal scattered bronchial wall thickening. No bronchiectasis. PLEURA: No pleural effusion or pneumothorax. MEDIASTINUM: Normal heart size. No pericardial effusion. Coronary artery vascular calcifications are present. No mediastinal or hilar lymphadenopathy. No evidence of septal bowing or right heart strain. CHEST WALL/AXILLA: No axillary or internal mammary lymphadenopathy. OSSEOUS STRUCTURES: No acute or suspicious osseous abnormality. Bilateral rib fracture deformities. Anterior wedge compression deformities of T6 and T7, presumably chronic. Mild multilevel degenerative disc disease. UPPER ABDOMEN: 1.7 cm splenule. Colonic diverticulosis at the splenic flexure. Imaged upper abdominal viscera otherwise unremarkable. No reflux of contrast into the hepatic veins to suggest elevated right heart pressures. CT/CT angio chest PE protocol IMPRESSION: 1. No evidence of central or segmental pulmonary embolus. Slightly limited assessment for detecting segmental pulmonary emboli in the left lower lobe due to motion artifact. 2. Mild right basilar and lingular atelectasis. No airspace consolidation or effusions. VTE: Negative with slight limitation as above.
--- NOTE | ~2022-03-23 | CT_ITS ---
EXAMINATION: CT BRAIN AND CT CERVICAL SPINE WITHOUT CONTRAST. CLINICAL INFORMATION: Syncope. COMPARISON: None TECHNIQUE: 5 mm thin axial and reformatted 2 mm thin sagittal and coronal images of brain were obtained. Subsequently axial 3 mm thin and reformatted 2 mm thin sagittal and coronal images of cervical spine were obtained. DLP 933 mGy/cm FINDINGS: Brain: There is no acute intra-axial, extra-axial bleed, masses, collection or midline shift. There is diffuse periventricular hypodensity in both cerebral hemispheres without mass effect. There is no acute infarction in evolution. Small lacunar infarction seen in the right external capsule. Bone windows reveal no calvarial abnormality. No scalp abnormality seen either. Bilateral paranasal sinuses and mastoid air cells are well aerated. Cervical spine: There is normal cervical lordosis. There is grade 1 anterolisthesis C5 over C6. Rest the vertebral alignment is normal. The craniovertebral junction and C1-C2 alignment is normal. There is moderate left C3-C4, C4-C5 and C5-C6 facet joint arthropathy and hypertrophy. No visible acute fracture, dislocation or subluxation seen. The prevertebral and paravertebral soft tissues are normal. The airways widely patent. The lung apices are clear.. CT/CT cervical spine wo IV con IMPRESSION: No acute intracranial process seen. Age-related brain with chronic small vessel ischemic changes in both cerebral hemispheres. Grade 1 anterolisthesis C5-C6 with moderate left facet arthropathy as well. No visible acute fracture, dislocation or lytic process seen.
--- NOTE | ~2022-03-23 | XR_ITS ---
EXAMINATION: XR CHEST CLINICAL INFORMATION: Weakness. COMPARISON: Chest radiograph dated 02/04/2022. TECHNIQUE: Frontal view of the chest was obtained. FINDINGS: No significant abnormality is noted involving the heart, lungs, mediastinum, bony thorax or soft tissues. There is stable biapical pleural thickening. There are atherosclerotic calcifications of the aortic knob. XR/XR chest 1V IMPRESSION: No active cardiopulmonary disease
--- NOTE | ~2022-03-23 | CT_ITS ---
EXAMINATION: CT BRAIN AND CT CERVICAL SPINE WITHOUT CONTRAST. CLINICAL INFORMATION: Syncope. COMPARISON: None TECHNIQUE: 5 mm thin axial and reformatted 2 mm thin sagittal and coronal images of brain were obtained. Subsequently axial 3 mm thin and reformatted 2 mm thin sagittal and coronal images of cervical spine were obtained. DLP 933 mGy/cm FINDINGS: Brain: There is no acute intra-axial, extra-axial bleed, masses, collection or midline shift. There is diffuse periventricular hypodensity in both cerebral hemispheres without mass effect. There is no acute infarction in evolution. Small lacunar infarction seen in the right external capsule. Bone windows reveal no calvarial abnormality. No scalp abnormality seen either. Bilateral paranasal sinuses and mastoid air cells are well aerated. Cervical spine: There is normal cervical lordosis. There is grade 1 anterolisthesis C5 over C6. Rest the vertebral alignment is normal. The craniovertebral junction and C1-C2 alignment is normal. There is moderate left C3-C4, C4-C5 and C5-C6 facet joint arthropathy and hypertrophy. No visible acute fracture, dislocation or subluxation seen. The prevertebral and paravertebral soft tissues are normal. The airways widely patent. The lung apices are clear.. CT/CT head/brain wo IV con IMPRESSION: No acute intracranial process seen. Age-related brain with chronic small vessel ischemic changes in both cerebral hemispheres. Grade 1 anterolisthesis C5-C6 with moderate left facet arthropathy as well. No visible acute fracture, dislocation or lytic process seen.
--- NOTE | ~2022-03-23 | XR_ITS ---
EXAMINATION: XR KNEE, RIGHT CLINICAL INFORMATION: Pain. COMPARISON: None TECHNIQUE: AP, lateral, and both oblique views of the right knee. FINDINGS: There is bony demineralization. There is moderate asymmetric narrowing of the lateral joint space compartment, and the medial joint space compartment is well-maintained. The patellofemoral joint space compartment is well-maintained. There is no fracture or dislocation. There is a small joint effusion. No foreign body is seen. There are femoral and infrapopliteal atherosclerotic calcifications. XR/XR knee RT 4V IMPRESSION: 1. There is moderate osteoarthritic change of the lateral joint space compartment of the right knee. 2. There is a small right knee joint effusion.
--- NOTE | 2022-03-23 12:05 | PC.NURSE ---
Neuros are intact at this time however pt unable to lift legs off bed d/t pain in knees. PERRLA B/L. C/O B/L knee pain since yesterday. Denies any injury at that time. ST on tele. Collared by EMS.
--- NOTE | 2022-03-23 13:00 | ECG_ITS ---
Test Reason : syncope Blood Pressure : / mmHG Vent. Rate : 103 BPM Atrial Rate : 103 BPM P-R Int : 112 ms QRS Dur : 080 ms QT Int : 360 ms P-R-T Axes : 056 057 074 degrees QTc Int : 471 ms Sinus tachycardia with occasional Premature ventricular complexes Nonspecific ST abnormality Abnormal ECG When compared with ECG of 13-DEC-2021 00:25, Premature ventricular complexes are now Present Heart rate has increased Referred By: Mya Domingo Electronically Signed By:ANAND MORELOS MD
--- NOTE | 2022-03-23 13:03 | ED_ITS ---
HPI - Syncope General Chief Complaint: Syncope Stated Complaint: SYNCOPE PER EMS Time Seen by Provider: 03/23/22 12:14 History of Present Illness HPI narrative: Patient is a 77-year-old female history of hypertension COPD. Was waiting for a ride for iron infusion. Next thing she knew she was found unconscious. Bystander noted patient kind of slid down. There was no specific complaints. No history of seizures. No seizure-like activity was noted. Patient was incontinence of stool. The stool was brown in color. Related Data Home Medications Medication Instructions Recorded Confirmed amlodipine 2.5 mg tablet 2.5 mg PO DAILY 02/05/22 03/23/22 methotrexate sodium 2.5 mg tablet 4 tab PO QWEEK 02/05/22 03/23/22 omeprazole 20 mg capsule,delayed 20 mg PO DAILY 02/05/22 03/23/22 release pravastatin 40 mg tablet 40 mg PO DAILY 02/05/22 03/23/22 ropinirole 1 mg tablet 2 mg PO TID 02/05/22 03/23/22 ferrous sulfate 325 mg (65 mg 325 mg PO DAILY 02/18/22 03/23/22 iron) tablet (Feosol) Previous Rx's Medication Instructions Recorded blood pressure monitor #1 ea 02/12/22 albuterol sulfate 90 mcg/actuation 2 puff inhalation Q4-6H PRN 02/16/22 aerosol inhaler (ProAir HFA) shortness of breath or wheezing 1 month #8.5 grams folic acid 1 mg tablet 1 mg PO DAILY #90 tabs 02/16/22 acetaminophen 325 mg capsule 650 mg PO Q6H PRN pain #30 caps 03/16/22 (Tylenol) Allergies Allergy/AdvReac Type Severity Reaction Status Date / Time oxycodone [From OxyContin] Allergy Mild Hives Verified 03/23/22 15:12 Review of Systems Review of Systems: Positive syncope Yes all other systems are reviewed and are negative [facility] Past Medical History Attestation statement: The following information was validated with the patient. Medical History (Updated 03/23/22 @ 15:21 by Mya Domingo MD) COPD (chronic obstructive pulmonary disease) Hypertension Osteoporosis Restless leg syndrome Surgical History (Updated 03/23/22 @ 15:14 by Ant Crain MD) H/O neck surgery H/O parathyroidectomy Status post hip surgery Family History Family History (Updated 03/23/22 @ 15:14 by Ant Crain MD) Father CAD (coronary artery disease) Social History Social History Housing: Apartment Alcohol intake: never Patient Tobacco Use Status: Current everyday Tobacco user Tobacco use type: Cigarette Cigarette Packs Per Day: 0.5 Cigarettes Per Day: 6 Years Smoked: 55 Smoked in Last 30 Days: Yes Second Hand Smoke Exposure: Yes Use of substances other than those prescribed or required for medical reasons: No Advance Directives: No Advance Directives Information Provided: Yes service: No Current occupational status: retired Physical Exam 2 Vital Signs: Vital Signs: Last Vital Signs Temp 98.1 F 03/23/22 11:52 Pulse 107 H 03/23/22 11:52 Resp 22 H 03/23/22 11:52 BP 131/74 03/23/22 11:52 Pulse Ox 95 03/23/22 12:02 O2 Del Method 03/23/22 12:02 BMI result Body Mass Index 22.6 Appearance: Alert. Oriented X3. No acute distress. Eyes: Pupils equal, round and reactive to light. ENT: Pharynx normal. Neck: Normal inspection. Neck supple. No lymph nodes noted. No crepitus CVS: Normal heart rate and rhythm. Pulses normal. Normal S1 and S2 Respiratory: No respiratory distress. Breath sounds normal. No Wheezing. No rales Abdomen: Soft and nontender. No rigidity. No distention. good BS x4 Skin: Skin warm and dry. Normal skin color. Normal skin turgor. Extremities: No lower extremity edema. + pain on palpation of the right knee, + effusion noted. Neurovascular intact to all extremities. No Lacerations. No Rash Neuro: Oriented X 3. No motor deficit. No sensory deficit. Moving all extermities. No slurred speech MDM - Syncope MDM Narrative Medical decision making narrative: Patient presents today with having a syncopal episode. Was coming to the hospital for an iron transfusion. When subsequently patient collapsed. Syncope? Question hitting her head. CT scan of the head was done. Grossly there was no bleeding final reading per Radiology still pending. Patient's hemoglobin came back at 6.6. Stool was heme positive. MCV was low. Likely iron deficiency anemia and blood lost. Patient's blood will be crossed. Will transfuse patient with 2 units. Risk and benefits of transfusion discussed with patient. Patient agreed to transfusion. Patient had extreme right knee pain. X-ray showed no acute fracture. Small amount of effusion. On exam patient had large amount of effusion. Consent was obtained. An 18 gauge needle was used to drain out approximately 30 cc of fluid from the joint. It was straw like in color. It was sent off for analysis. Case discussed with hospitalist team. Awaiting admissions. Differential Diagnosis Differential diagnosis: Likely syncope due to orthostatic hypotension Medical Records Attestation: I reviewed the patient's medical records. Lab Data Attestation: I reviewed the patient's lab results. Result diagrams: 03/23/22 14:05 03/23/22 14:05 Labs: Lab Results 03/23/22 03/23/22 03/23/22 Range/Units 14:05 14:05 14:05 WBC 15.5 H (4.8-10.8) X10*3/uL RBC 2.83 L (4.20-5.50) X10*6/uL Hgb 6.6 L* D (12.0-16.0) g/dl Hct 22.5 L D (37.0-47.0) % MCV 79.5 L (80.0-98.0) fL MCH 23.3 L (27.0-33.0) pg MCHC 29.3 L (31.0-35.0) g/dl RDW 18.7 H (11.0-16.0) % Plt Count 812 H (160-400) X10*3/uL MPV 9.2 L (9.4-12.3) fL Immature Gran % (Auto) 0.5 H (0.0-0.4) % Neut % (Auto) 85.8 H (45-73) % Lymph % (Auto) 4.4 L (20-40) % [place] % (Auto) 9.1 (2-11) % Eos % (Auto) 0.0 (0-4) % Baso % (Auto) 0.2 (0-2) % Lymph # (Auto) 0.7 L (1.2-4.9) X10*3/uL [place] # (Auto) 1.4 H (0.1-1.2) X10*3/uL Eos # (Auto) 0.0 (0.0-0.4) X10*3/uL Baso # (Auto) 0.0 (0.0-0.2) X10*3/uL Abs Immat Gran (auto) 0.08 H (0.00-0.03) X10*3/uL Absolute Neuts (auto) 13.3 H (2.0-8.3) x10*3/uL Absolute Nucleated RBC 0.000 (0.0-0.012) X10*3/uL Nucleated RBC % (auto) 0.0 (0.0-0.2) /100WBC Sodium 135 (135-145) mmol/L Potassium 4.3 (3.3-5.1) mmol/L Chloride 103 (96-108) mmol/L Carbon Dioxide 20 L (22-29) mmol/L Anion Gap 16 (12-20) BUN 13 (9-16) mg/dL Creatinine 0.70 (0.5-1.4) mg/dL Estim Creat Clear Calc 51.5 Estimated GFR > 60 Random Glucose 115 (60-115) mg/dL Calcium 8.6 (8.4-10.2) mg/dL Troponin I High Sens 6.5 (<3.5-17.0) ng/L Stool Occult Blood (NEGATIVE) 03/23/22 Range/Units 14:34 WBC (4.8-10.8) X10*3/uL RBC (4.20-5.50) X10*6/uL Hgb (12.0-16.0) g/dl Hct (37.0-47.0) % MCV (80.0-98.0) fL MCH (27.0-33.0) pg MCHC (31.0-35.0) g/dl RDW (11.0-16.0) % Plt Count (160-400) X10*3/uL MPV (9.4-12.3) fL Immature Gran % (Auto) (0.0-0.4) % Neut % (Auto) (45-73) % Lymph % (Auto) (20-40) % [place] % (Auto) (2-11) % Eos % (Auto) (0-4) % Baso % (Auto) (0-2) % Lymph # (Auto) (1.2-4.9) X10*3/uL [place] # (Auto) (0.1-1.2) X10*3/uL Eos # (Auto) (0.0-0.4) X10*3/uL Baso # (Auto) (0.0-0.2) X10*3/uL Abs Immat Gran (auto) (0.00-0.03) X10*3/uL Absolute Neuts (auto) (2.0-8.3) x10*3/uL Absolute Nucleated RBC (0.0-0.012) X10*3/uL Nucleated RBC % (auto) (0.0-0.2) /100WBC Sodium (135-145) mmol/L Potassium (3.3-5.1) mmol/L Chloride (96-108) mmol/L Carbon Dioxide (22-29) mmol/L Anion Gap (12-20) BUN (9-16) mg/dL Creatinine (0.5-1.4) mg/dL Estim Creat Clear Calc Estimated GFR Random Glucose (60-115) mg/dL Calcium (8.4-10.2) mg/dL Troponin I High Sens (<3.5-17.0) ng/L Stool Occult Blood POSITIVE (NEGATIVE) Procedures Joint Aspiration/Injection Joint Asp./Inject. 1: Time Out Performed: Yes Side of body: right Joint Aspirated: knee Ultrasound Guidance: No Skin Prep: Povidone-Iodine1% Local Anesthetic: lidocaine 1% Amount of anesthesia used (mL): 3 Needle Size Used: 18G Fluid Obtained: clear Total fluid obtained (mL): 30 Patient Tolerated Procedure: well Complications: none Critical Care Time Critical Care Time Critical Care Time: Yes Total Critical Care Time: 40 Attestation: I have personally provided 40 minutes of critical care time exclusive of time spent on separately billable procedures. Time includes review of lab data, radiology results, discussion with consultants, and monitoring for potential decompensation. Interventions were performed as documented above Discharge Plan Discharge Clinical Impression: Syncope, Anemia, Joint effusion Patient Disposition: Admitted As Inpatient Prescriptions: No Action albuterol sulfate [ProAir HFA] 90 mcg/actuation HFA aerosol inhaler 2 puff inhalation Q4-6H PRN (Reason: shortness of breath or wheezing) 30 Days Qty: 8.5 2RF folic acid 1 mg tablet 1 mg PO DAILY Qty: 90 3RF bisacodyl [Dulcolax (bisacodyl)] 5 mg tablet,delayed release (DR/EC) 10 mg PO ONCE 1 Days Qty: 2 0RF Rx Instructions: take orally as directed prior to colonoscopy polyethylene glycol 3350 [Miralax] 17 gram/dose powder 238 g PO ONCE 1 Days Qty: 238 0RF Rx Instructions: take orally as directed prior to colonoscopy ropinirole 1 mg tablet 2 mg PO TID pravastatin 40 mg tablet 40 mg PO DAILY amlodipine 2.5 mg tablet 2.5 mg PO DAILY methotrexate sodium 2.5 mg tablet 4 tab PO QWEEK omeprazole 20 mg capsule,delayed release(DR/EC) 20 mg PO DAILY (DME) blood pressure monitor Kit See Rx Instructions .Route Qty: 1 0RF Rx Instructions: check bp twice a week and when not feeling well acetaminophen [Tylenol] 325 mg capsule 650 mg PO Q6H PRN (Reason: pain) Qty: 30 0RF ferrous sulfate [Feosol] 325 mg (65 mg iron) tablet 325 mg PO DAILY bismuth subsalicylate [Pepto-Bismol] 262 mg/15 mL suspension 524 mg PO Q1H PRN Rx Instructions: do not exceed 8 doses in a 24 hour period
[2022-03-23 14:12] LABS: MANUAL DIFF FLAG NO
[2022-03-23 14:18] LABS: Basophils Percent Auto 0.2 % (0-2); Hematocrit 22.5 % (37.0-47.0); Imm Gran Abs Auto 0.08 X10*3/uL (0.00-0.03); Imm Gran Pct Auto 0.5 % (0.0-0.4); Lymphocytes Absolute Auto 0.7 X10*3/uL (1.2-4.9); Lymphocytes Percent Auto 4.4 % (20-40); Mean Corpuscular HGB Conc 29.3 g/dl (31.0-35.0); Mean Corpuscular Hemoglobin 23.3 pg (27.0-33.0); Mean Corpuscular Volume 79.5 fL (80.0-98.0); Mean Platelet Volume 9.2 fL (9.4-12.3); Monocytes Absolute Auto 1.4 X10*3/uL (0.1-1.2); Monocytes Percent Auto 9.1 % (2-11); Neutrophils Absolute Auto 13.3 x10*3/uL (2.0-8.3); Neutrophils Percent Auto 85.8 % (45-73); Platelet Count 812 X10*3/uL (160-400); Red Blood Count 2.83 X10*6/uL (4.20-5.50); Red Cell Distribution Width 18.7 % (11.0-16.0); White Blood Count 15.5 X10*3/uL (4.8-10.8)
[2022-03-23 14:21] LABS: Hemoglobin 6.6 g/dl (12.0-16.0)
[2022-03-23 14:27] LABS: Anion Gap 16 (12-20); Blood Urea Nitrogen 13 mg/dL (9-16); Calcium 8.6 mg/dL (8.4-10.2); Carbon Dioxide 20 mmol/L (22-29); Chloride 103 mmol/L (96-108); Creatinine Clr Calc Pharmacy 51.5; Estimated Glomerular Filt Rate > 60; Glucose Random 115 mg/dL (60-115); Potassium 4.3 mmol/L (3.3-5.1); Sodium 135 mmol/L (135-145)
[2022-03-23 14:35] LABS: Troponin-I High Sensitivity 6.5 ng/L (<3.5-17.0)
[2022-03-23 14:42] LABS: OBS1 POSITIVE (NEGATIVE)
[2022-03-23 14:43] LABS: OBS Int Ctl Valid YES
[2022-03-23 15:16] LABS: Source Synovial Fluid right knee
--- NOTE | 2022-03-23 15:18 | PHA.MEDREC ---
Pharmacy Consult ? Medication Reconciliation Pharmacy has completed the medication reconciliation. Patient is unsure what day of the week she takes methotrxate. Confirmed all other medications. Macy Malave, DinaD
--- NOTE | 2022-03-23 15:50 | P.HPHOSP_ITS ---
History of Present Illness Date of Service: 03/23/22 Chief Complaint: syncope 77F with PMH COPD, chronic iron defeciency anemia due to diffuse small bowel telangiectasias, HTN, HLD, RLS, rheumatoid arthritis, hyperparathyroid s/p parathyroidectomy, presented with syncope. patient is poor historian and does not remember events. she was standing waiting for iron infusion and witnesses state she passed out and was lowered to floor without injury. patient denies chest pain or palpitations, she reports sob. in ED found to have anemia with hgb 6.6. cth and c spine negative for trauma. was noted to have right knee edema and pain, this was aspirated - results pending. 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 COPD (chronic obstructive pulmonary disease) Hypertension Osteoporosis Restless leg syndrome Family History Father CAD (coronary artery disease) Surgical History H/O neck surgery H/O parathyroidectomy Status post hip surgery Social History Housing: Apartment Alcohol intake: never Patient Tobacco Use Status: Current everyday Tobacco user Tobacco use type: Cigarette Cigarette Packs Per Day: 0.5 Cigarettes Per Day: 6 Years Smoked: 55 Smoked in Last 30 Days: Yes Second Hand Smoke Exposure: Yes Use of substances other than those prescribed or required for medical reasons: No Advance Directives: No Advance Directives Information Provided: Yes service: No Current occupational status: retired Meds Allergies Allergy/AdvReac Type Severity Reaction Status Date / Time oxycodone [From OxyContin] Allergy Mild Hives Verified 03/23/22 15:12 Active Medications: Current Medications Albuterol Sulfate (Albuterol Sulfate 90 Mcg 8 Gm Inhaler) 2 puff INHALE Q4H PRN PRN Reason: shortness of breath or wheezing Amlodipine Besylate (Amlodipine Besylate 2.5 Mg Tablet) 2.5 mg PO DAILY [facility]; Protocol Cyanocobalamin (Cyanocobalamin (Vitamin B-12) 1,000 Mcg Tablet) 1,000 mcg PO DAILY [facility] Folic Acid (Folic Acid 1 Mg Tablet) 1 mg PO DAILY [facility] Methotrexate (Methotrexate Sodium 2.5 Mg Tablet) 10 mg PO QWEEK [facility] Omeprazole (Omeprazole 20 Mg Capsule.Dr) 20 mg PO DAILY@0630 [facility] Pharmacy Consult (Consult Rx Perform Med Rec) 1 each MISCELLANE ONCE PRN PRN Reason: Consult order Pravastatin Sodium (Pravastatin Sodium 40 Mg Tablet) 40 mg PO DAILY [facility] Ropinirole HCl (Ropinirole Hcl 1 Mg Tablet) 2 mg PO TID [facility] Sodium Chloride (0.9 % Sodium Chloride Flush 3 Ml Syringe) 3 ml IVFLUSH QSHIFT [facility] Home Medications Medication Instructions Recorded Confirmed Last Taken Type amlodipine 2.5 mg tablet 2.5 mg PO DAILY 02/05/22 03/23/22 03/23/22 History methotrexate sodium 2.5 mg tablet 4 tab PO QWEEK 02/05/22 03/23/22 Unknown History omeprazole 20 mg capsule,delayed 20 mg PO DAILY 02/05/22 03/23/22 03/23/22 History release pravastatin 40 mg tablet 40 mg PO DAILY 02/05/22 03/23/22 03/23/22 History ropinirole 1 mg tablet 2 mg PO TID 02/05/22 03/23/22 03/23/22 History ferrous sulfate 325 mg (65 mg 325 mg PO DAILY 02/18/22 03/23/22 03/23/22 History iron) tablet (Feosol) Physical Exam Vital Signs and Narrative: Vital Signs: Last Vital Signs Temp 98.1 F 03/23/22 11:52 Pulse 107 H 03/23/22 11:52 Resp 22 H 03/23/22 11:52 BP 131/74 03/23/22 11:52 Pulse Ox 95 03/23/22 12:02 O2 Del Method 03/23/22 12:02 BMI result Body Mass Index 22.6 General: frail, tachypneic HEENT: atraumatic Neck: normal to visual inspection CVS: S1, S2, Rapid regular Resp: diminished Chest: non tender GI: soft, non tender, non distended : no CVA tenderness Skin: no rashes Extremities: right knee swelling, tender Neuro: Oriented X3, grossly intact Psych: cooperative, flat affect Results Labs CBC and Chem 7: 03/23/22 14:05 03/23/22 14:05 Labs: Laboratory Results - last 24 hr 03/23/22 03/23/22 03/23/22 14:05 14:05 14:05 MCV 79.5 L MCH 23.3 L MCHC 29.3 L RDW 18.7 H Plt Count 812 H MPV 9.2 L Immature Gran % (Auto) 0.5 H Neut % (Auto) 85.8 H Lymph % (Auto) 4.4 L [place] % (Auto) 9.1 Eos % (Auto) 0.0 Baso % (Auto) 0.2 Lymph # (Auto) 0.7 L [place] # (Auto) 1.4 H Eos # (Auto) 0.0 Baso # (Auto) 0.0 Abs Immat Gran (auto) 0.08 H Absolute Neuts (auto) 13.3 H Absolute Nucleated RBC 0.000 Nucleated RBC % (auto) 0.0 Anion Gap 16 Estim Creat Clear Calc 51.5 Estimated GFR > 60 Random Glucose 115 Calcium 8.6 Troponin I High Sens 6.5 Synovial Source Stool Occult Blood Crossmatch (AHG) 03/23/22 03/23/22 03/23/22 14:34 14:58 15:34 MCV MCH MCHC RDW Plt Count MPV Immature Gran % (Auto) Neut % (Auto) Lymph % (Auto) [place] % (Auto) Eos % (Auto) Baso % (Auto) Lymph # (Auto) [place] # (Auto) Eos # (Auto) Baso # (Auto) Abs Immat Gran (auto) Absolute Neuts (auto) Absolute Nucleated RBC Nucleated RBC % (auto) Anion Gap Estim Creat Clear Calc Estimated GFR Random Glucose Calcium Troponin I High Sens Synovial Source right knee Stool Occult Blood POSITIVE Crossmatch (AHG) See Detail Imaging Radiologist's Impressions: Impressions Chest X-Ray 03/23/22 13:39 IMPRESSION: No active cardiopulmonary disease Knee X-Ray 03/23/22 13:39 IMPRESSION: 1. There is moderate osteoarthritic change of the lateral joint space compartment of the right knee. 2. There is a small right knee joint effusion. Cervical Spine CT 03/23/22 13:55 IMPRESSION: No acute intracranial process seen. Age-related brain with chronic small vessel ischemic changes in both cerebral hemispheres. Grade 1 anterolisthesis C5-C6 with moderate left facet arthropathy as well. No visible acute fracture, dislocation or lytic process seen. Head CT 03/23/22 13:55 IMPRESSION: No acute intracranial process seen. Age-related brain with chronic small vessel ischemic changes in both cerebral hemispheres. Grade 1 anterolisthesis C5-C6 with moderate left facet arthropathy as well. No visible acute fracture, dislocation or lytic process seen. Assessment and Plan (1) Syncope: Status: Acute Plan 77F with PMH COPD, chronic iron defeciency anemia due to diffuse small bowel telangiectasias, HTN, HLD, RLS, rheumatoid arthritis, hyperparathyroid s/p parathyroidectomy, presented with syncope syncope likely due to anemia, monitor on tele, check echo, ABG acute on chronic iron defeciency anemia due to diffuse small bowel telangiectasias continue ppi transfusing 2 units prbc, monitor right knee swelling follow up aspirate labs and culture HTN amlodipine hld statin RLS ropinirole hyperparathryoid s/p surgery check calcium, albumin COPD prn bronchodilators b12 defeciency start po supplement RA MTX, folic acid dvt prophylaxis- mechanical due to ongoing gi bleed full code patient with concerning syncope and severe anemia, requiring close monitoring and transfusion, high risk due to frailty, copd, RA, therefore, will likely require atleast 2 midnights inpatient. Quality Stroke Does the patient have a stroke diagnosis?: No VTE Prior VTE?: No VTE Risk Level:: Medical - moderate - high VTE Device Contraindication: N/A - Device Ordered VTE Drug Contraindication: Treatment Not Indicated
[2022-03-23 16:00] LABS: COVID-19 Test Positive (Negative); IDNOW Serial# 16C4AD1C
[2022-03-23] MEDS: 0.9 % Sodium Chloride Flush 3 ML SYRINGE IVFLUSH (16:04)
--- NOTE | 2022-03-23 16:11 | PC.NURSE ---
Pt more alert/awake at this time. When able to clean pt after collar removal pt noted with urine and stool incontinence. Second IV start. 30ml removed from right knee by Dr Domingo, gloria bandage in place. Orthos being completed at this time and bedside echo.
[2022-03-23 16:13] LABS: ABG Base Excess -2.6 mmol/L; ABG HCO3 20 mmol/L (22-26); ABG pCO2 26 mmHg (32-45); ABG pH 7.48 (7.35-7.45); ABG pO2 68 mmHg (83-108)
[2022-03-23 16:20] LABS: MN% 7.1 %; PMN% 92.9 %
--- NOTE | 2022-03-23 16:20 | PC.NURSE ---
Echo unable to be done, during orthos pt noted to have large loose stool, being cleaned at this time. Stool dark brown. +orthos.
[2022-03-23 16:26] LABS: Alanine Aminotransferase 7 U/L (0-31); Albumin Level 3.8 g/dL (3.5-5.0); Alkaline Phosphatase 70 U/L (39-117); Aspartate Amino Transferase 13 U/L (5-31); Bilirubin Direct 0.3 mg/dL (0.0-0.5); Bilirubin Total 0.5 mg/dL (0.0-1.0)
--- NOTE | 2022-03-23 16:33 | PC.NURSE ---
while speedometer mechanic was doing orthostatic vitals while pt was standing pt made a bowell movement, pt was cleaned, pt and sheets changed by speedometer mechanic and rn.
[2022-03-23] MEDS: iohexoL 350 MG/ML 100 ML INFUS..BTL IV (16:59)
[2022-03-23 17:03] LABS: RBC Synovial Fluid 0.002 X10*6/uL
[2022-03-23 17:13] LABS: BF Shift QC OK YES; Lymphocytes Synovial Fluid 4 %; Man Diluent Bkgrd OK YES; Neutrophils Synovial Fluid 96 %
--- NOTE | 2022-03-23 17:18 | PC.NURSE ---
patient doesnt have a blood consent form completed. Dr. Crain was notified who stated the form needs to be completed by the ordering provider who is Dr. Domingo in the ed. Dr. Domingo was notified via tiger text as well as the charge nurse.
--- NOTE | 2022-03-23 17:49 | PC.NURSE ---
Dr. Domingo was notified via tiger text and he stated he was no longer working, he asked this nurse to have another ED provider complete the form. This nurse called the ED and spoke with her previous nurse July who was going to speak with Dr. Winston about filling about the blood consent form. In the mean time the patient has now been assigned an inpt bed and has yet to have the blood consent form filled out. Will speak with the charge nurse as well.
--- NOTE | 2022-03-23 18:54 | PC.NURSE ---
Dr. Winston ED doctor signed blood consent form with patient, floor was notified that the consent form is now all set and lab had called to state the blood was ready, the patient is being transported to the floor with a nurse for the tele monitor.
[2022-03-23] MEDS: rOPINIRole HCL 2 MG TABLET PO (22:15)
[2022-03-23 23:04] LABS: Glucose Synovial Fluid 63 MG/DL; Total Protein Synovial Fluid 4.4 GM/DL
[2022-03-24] VITALS (10 sets, daily range): BP systolic 118–168; BP diastolic 63–84; PULSE 93–119; RESP 16–20; TEMP 36.1–37.7; O2SAT 90–98; BMI 22.6
[2022-03-24 03:06] LABS: ABG Refer to POC result
[2022-03-24] MEDS: Omeprazole 20 MG CAPSULE.DR PO (04:36)
[2022-03-24 07:00] LABS: Hematocrit 28.5 % (37.0-47.0); Mean Corpuscular HGB Conc 31.6 g/dl (31.0-35.0); Mean Corpuscular Hemoglobin 26.2 pg (27.0-33.0); Mean Corpuscular Volume 82.8 fL (80.0-98.0); Mean Platelet Volume 9.1 fL (9.4-12.3); NRBC Pct Auto 0.3 /100WBC (0.0-0.2); Platelet Count 605 X10*3/uL (160-400); Red Blood Count 3.44 X10*6/uL (4.20-5.50); Red Cell Distribution Width 19.3 % (11.0-16.0); White Blood Count 12.6 X10*3/uL (4.8-10.8)
[2022-03-24 07:22] LABS: Alanine Aminotransferase 7 U/L (0-31); Albumin Level 3.2 g/dL (3.5-5.0); Alkaline Phosphatase 60 U/L (39-117); Anion Gap 15 (12-20); Aspartate Amino Transferase 15 U/L (5-31); Bilirubin Direct 0.6 mg/dL (0.0-0.5); Bilirubin Total 3.9 mg/dL (0.0-1.0); Blood Urea Nitrogen 13 mg/dL (9-16); Calcium 7.9 mg/dL (8.4-10.2); Carbon Dioxide 19 mmol/L (22-29); Chloride 107 mmol/L (96-108); Creatinine Clr Calc Pharmacy 64.4; Estimated Glomerular Filt Rate > 60; Glucose Fasting 108 mg/dL (60-99); Sodium 137 mmol/L (135-145)
--- NOTE | 2022-03-24 09:32 | MHC.CM.PN ---
Female 77 DX Syncope Anemia lives by herself. She is independent all functional mobility. She has been vaccinated x3, Pfizer. DP home selfcare. Patient may need assist with transportation home.
[2022-03-24] MEDS: Cyanocobalamin (Vitamin B-12) 1,000 MCG TABLET 1000 MCG PO (11:41)
[2022-03-24] MEDS: rOPINIRole HCL 2 MG TABLET PO ×3 (11:41→22:18)
[2022-03-24] MEDS: Pravastatin Sodium 40 MG TABLET PO (11:41)
[2022-03-24] MEDS: Folic Acid 1 MG TABLET PO (11:41)
[2022-03-24] MEDS: 0.9 % Sodium Chloride Flush 3 ML SYRINGE IVFLUSH ×3 (11:42→23:57)
--- NOTE | 2022-03-24 14:42 | P.PNIM_ITS ---
Subjective Subjective Date of Service: 03/24/22 Interval History: cc: sycnope interval history:no complaints Cardiovascular Cardiovascular: Reports no additional cardiovascular complaints Gastrointestinal Gastrointestinal: Reports no additional gastrointestinal complaints Physical Exam Vital Signs: Vital Signs: Last Vital Signs Temp 98.0 F 03/24/22 11:26 Pulse 95 03/24/22 11:26 Resp 20 03/24/22 11:26 BP 121/63 03/24/22 11:26 Pulse Ox 96 03/24/22 11:26 O2 Del Method 03/24/22 11:26 BMI result Body Mass Index 22.6 General: AO X 3, frail appearing Resp: CTA bilateral, no accessory muscles used CVS: S1,S2,RRR GI: soft, non tender, non distended Neuro: motor grossly intact, alert Psych: appropriate affect, appropriate insight right knee swelling Objective Data Active Medications Albuterol Sulfate (Albuterol Sulfate 90 Mcg 8 Gm Inhaler) 2 puff INHALE Q4H PRN PRN Reason: shortness of breath or wheezing Cyanocobalamin (Cyanocobalamin (Vitamin B-12) 1,000 Mcg Tablet) 1,000 mcg PO DAILY [facility] Last Admin: 03/24/22 11:41 Dose: 1,000 mcg Documented By: JEEVAN Doxycycline Monohydrate (Doxycycline Monohydrate 100 Mg Capsule) 100 mg PO Q12H [facility] Folic Acid (Folic Acid 1 Mg Tablet) 1 mg PO DAILY [facility] Last Admin: 03/24/22 11:41 Dose: 1 mg Documented By: JEEVAN Ceftriaxone Sodium 1 gm/ (Sodium Chloride) 50 mls @ 100 mls/hr IV Q24H [facility] Methotrexate (Methotrexate Sodium 2.5 Mg Tablet) 10 mg PO QWEEK [facility] Omeprazole (Omeprazole 20 Mg Capsule.) 20 mg PO DAILY@0630 [facility] Last Admin: 03/24/22 04:36 Dose: 20 mg Documented By: DAIN Pharmacy Consult (Consult Rx Perform Med Rec) 1 each MISCELLANE ONCE PRN PRN Reason: Consult order Pravastatin Sodium (Pravastatin Sodium 40 Mg Tablet) 40 mg PO DAILY [facility] Last Admin: 03/24/22 11:41 Dose: 40 mg Documented By: JEEVAN Prednisone (Prednisone 20 Mg Tablet) 40 mg PO DAILY [facility] Ropinirole HCl (Ropinirole Hcl 2 Mg Tablet) 2 mg PO TID [facility] Last Admin: 03/24/22 11:41 Dose: 2 mg Documented By: JEEVAN Sodium Chloride (0.9 % Sodium Chloride Flush 3 Ml Syringe) 3 ml IVFLUSH QSHIFT [facility] Last Admin: 03/24/22 11:42 Dose: 3 ml Documented By: JEEVAN Labs CBC & Chem 7: 03/24/22 06:13 03/24/22 06:13 Labs: Laboratory Results - last 24 hr 03/23/22 03/23/22 03/23/22 14:05 14:05 14:34 MCV MCH MCHC RDW Plt Count MPV Absolute Nucleated RBC Nucleated RBC % (auto) Smear Path Review O2 Saturation ABG pH at Pt Temp ABG pCO2 at Pt Temp ABG pO2 at Pt Temp ABG HCO3 ABG Base Excess (Actual) Anion Gap Estim Creat Clear Calc Estimated GFR Fasting Glucose Calcium Magnesium Total Bilirubin 0.5 Direct Bilirubin 0.3 AST 13 ALT 7 Alkaline Phosphatase 70 Total Protein 7.0 Albumin 3.8 Synovial Source Synovial WBC Synovial RBC Synovial Neutrophils Synovial Lymphocytes Synovial Glucose Synovial Total Protein Stool Occult Blood POSITIVE COVID-19 ([facility]) [facility] Blood Type Antibody Screen Antibody Identification Crossmatch ([facility]) Blood Bank Comment 03/23/22 03/23/22 03/23/22 14:58 14:58 15:34 MCV MCH MCHC RDW Plt Count MPV Absolute Nucleated RBC Nucleated RBC % (auto) Smear Path Review O2 Saturation ABG pH at Pt Temp ABG pCO2 at Pt Temp ABG pO2 at Pt Temp ABG HCO3 ABG Base Excess (Actual) Anion Gap Estim Creat Clear Calc Estimated GFR Fasting Glucose Calcium Magnesium Total Bilirubin Direct Bilirubin AST ALT Alkaline Phosphatase Total Protein Albumin Synovial Source right knee Synovial WBC 45.500 Synovial RBC 0.002 Synovial Neutrophils 96 Synovial Lymphocytes 4 Synovial Glucose 63 Synovial Total Protein 4.4 Stool Occult Blood COVID-19 ([facility]) [facility] Blood Type A Positive Antibody Screen POSITIVE Antibody Identification Inconclusive Crossmatch ([facility]) See Detail Blood Bank Comment Specimen 03/23/22 03/23/22 03/24/22 15:43 16:07 06:13 MCV 82.8 MCH 26.2 L MCHC 31.6 RDW 19.3 H Plt Count 605 H D MPV 9.1 L Absolute Nucleated RBC 0.040 H Nucleated RBC % (auto) 0.3 H Smear Path Review O2 Saturation 93.0 ABG pH at Pt Temp 7.48 H ABG pCO2 at Pt Temp 26 L ABG pO2 at Pt Temp 68 L ABG HCO3 20 L ABG Base Excess (Actual) -2.6 Anion Gap Estim Creat Clear Calc Estimated GFR Fasting Glucose Calcium Magnesium Total Bilirubin Direct Bilirubin AST ALT Alkaline Phosphatase Total Protein Albumin Synovial Source Synovial WBC Synovial RBC Synovial Neutrophils Synovial Lymphocytes Synovial Glucose Synovial Total Protein Stool Occult Blood COVID-19 ([facility]) Positive A COVID-19 Clin Com See Note Blood Type Antibody Screen Antibody Identification Crossmatch ([facility]) Blood Bank Comment 03/24/22 06:13 MCV MCH MCHC RDW Plt Count MPV Absolute Nucleated RBC Nucleated RBC % (auto) Smear Path Review O2 Saturation ABG pH at Pt Temp ABG pCO2 at Pt Temp ABG pO2 at Pt Temp ABG HCO3 ABG Base Excess (Actual) Anion Gap 15 Estim Creat Clear Calc 64.4 Estimated GFR > 60 Fasting Glucose 108 H Calcium 7.9 L D Magnesium 2.0 Total Bilirubin 3.9 H Direct Bilirubin 0.6 H AST 15 ALT 7 Alkaline Phosphatase 60 Total Protein 6.0 L Albumin 3.2 L Synovial Source Synovial WBC Synovial RBC Synovial Neutrophils Synovial Lymphocytes Synovial Glucose Synovial Total Protein Stool Occult Blood COVID-19 ([facility]) COVID-19 Clin Com Blood Type Antibody Screen Antibody Identification Crossmatch ([facility]) Blood Bank Comment Microbiology Microbiology Results: Microbiology 03/23/22 14:58 Gram Stain - Final Knee aspirate Anaerobic Culture - Preliminary No growth to date. Gross Specimen Examination - Final Fluid Crystals - Final Joint Fluid Culture - Preliminary No growth to date. Assessment and Plan (1) Acquired telangiectasia of small and large intestines: Status: Acute Plan 77F with PMH COPD, chronic iron defeciency anemia due to diffuse small bowel telangiectasias, HTN, HLD, RLS, rheumatoid arthritis, hyperparathyroid s/p parathyroidectomy, presented with syncope syncope likely due to anemia, monitor on tele, check echo acute on chronic iron defeciency anemia due to diffuse small bowel telangiectasias continue ppi transfused 2 units prbc, monitor, hgb improved appropriatedly from 6.6 to 9 right knee swelling PMN about 45K stain with polys no organisms, 1+ crystals prednisone for acute pseudogout ID appreaciated - empiric rocephin, doxy, follow up lyme follow up cultures covid 19 incidental no treatement for now HTN amlodipine hld statin RLS ropinirole hyperparathryoid s/p surgery stable COPD prn bronchodilators b12 defeciency start po supplement RA hold MTX, folic acid dvt prophylaxis- mechanical due to ongoing gi bleed full code reason for continued hospitalization: working up syncope, knee swelling Quality Stroke Does the patient have a stroke diagnosis?: No VTE Prior VTE?: No VTE Risk Level:: Medical - moderate - high VTE Device Contraindication: N/A - Device Ordered VTE Drug Contraindication: Treatment Not Indicated
[2022-03-24] MEDS: predniSONE 20 MG TABLET 40 MG PO (16:28)
[2022-03-24] MEDS: Doxycycline Monohydrate 100 MG CAPSULE PO (16:28)
[2022-03-24] MEDS: cefTRIAXone sodium 1 GM in 0.9 % Sodium Chloride 50 ML IV (16:30)
[2022-03-25] MEDS: Doxycycline Monohydrate 100 MG CAPSULE PO ×2 (02:38→15:16)
[2022-03-25 03:02] VITALS: BP 150/84; PULSE 90; RESP 14; TEMP 36.3; O2SAT 97
[2022-03-25] MEDS: Omeprazole 20 MG CAPSULE.DR PO (06:13)
[2022-03-25 07:47] VITALS: BP 128/58; PULSE 87; RESP 12; TEMP 36.9; O2SAT 97
[2022-03-25 07:47] LABS: Hemoglobin 9.5 g/dl (12.0-16.0); Mean Corpuscular HGB Conc 30.6 g/dl (31.0-35.0); Mean Corpuscular Hemoglobin 25.6 pg (27.0-33.0); Mean Corpuscular Volume 83.6 fL (80.0-98.0); Mean Platelet Volume 9.6 fL (9.4-12.3); Platelet Count 636 X10*3/uL (160-400); Red Blood Count 3.71 X10*6/uL (4.20-5.50); White Blood Count 11.3 X10*3/uL (4.8-10.8)
[2022-03-25 07:56] LABS: Alanine Aminotransferase 9 U/L (0-31); Albumin Level 3.2 g/dL (3.5-5.0); Alkaline Phosphatase 60 U/L (39-117); Anion Gap 15 (12-20); Aspartate Amino Transferase 23 U/L (5-31); Bilirubin Direct 0.3 mg/dL (0.0-0.5); Bilirubin Total 0.6 mg/dL (0.0-1.0); Blood Urea Nitrogen 14 mg/dL (9-16); Calcium 8.4 mg/dL (8.4-10.2); Carbon Dioxide 19 mmol/L (22-29); Chloride 106 mmol/L (96-108); Creatinine Clr Calc Pharmacy 62.2; Estimated Glomerular Filt Rate > 60; Glucose Fasting 109 mg/dL (60-99); Magnesium 2.2 mg/dL (1.6-2.6); Potassium 4.4 mmol/L (3.3-5.1); Sodium 136 mmol/L (135-145); Total Protein 6.2 g/dL (6.5-8.0)
[2022-03-25 08:00] VITALS: BP 145/66; PULSE 82; RESP 16; TEMP 35.9; O2SAT 93
[2022-03-25] MEDS: Folic Acid 1 MG TABLET PO (10:04)
[2022-03-25] MEDS: Cyanocobalamin (Vitamin B-12) 1,000 MCG TABLET 1000 MCG PO (10:04)
[2022-03-25] MEDS: rOPINIRole HCL 2 MG TABLET PO ×3 (10:04→21:16)
[2022-03-25] MEDS: 0.9 % Sodium Chloride Flush 3 ML SYRINGE IVFLUSH ×3 (10:05→20:29)
[2022-03-25] MEDS: predniSONE 20 MG TABLET 40 MG PO (10:05)
[2022-03-25] MEDS: Pravastatin Sodium 40 MG TABLET PO (10:05)
[2022-03-25 11:35] VITALS: BP 110/56; PULSE 86; RESP 20; TEMP 37.1; O2SAT 96
[2022-03-25 15:10] VITALS: BP 135/66; PULSE 90; RESP 17; TEMP 36.1; O2SAT 96
--- NOTE | 2022-03-25 15:20 | HO.PM.IMPN ---
Subjective Subjective Date of Service: 03/25/22 Interval History: the patient was seen and evaluated this morning Laying in bed, feels much better at this point Hemoglobin improved to 9.5 Right knee pain and swelling improved Denies any fever, chills or shortness of breath No reported other overnight events. Systemic review: No fever, chills or weakness No chest pain, palpitation No shortness of breath or coughing No abdominal pain, nausea or vomiting No urinary symptoms No reported rash Better movement of the right knee Physical Exam Vital Signs: Vital Signs: Last Vital Signs Temp 97 F 03/25/22 15:10 Pulse 90 03/25/22 15:10 Resp 17 03/25/22 15:10 BP 135/66 03/25/22 15:10 Pulse Ox 96 03/25/22 15:10 O2 Del Method 03/25/22 15:10 BMI result Body Mass Index 22.6 Const: Other: Constitutional : Awake, interactive, not in distress Neck : Normal inspection, Supple Cardiovascular : RRR, no JVP, no lower extremity edema Respiratory : good bilateral air entry, no crackles, wheezes or rhonchi Gastrointestinal: soft, lax, Normal bowel sounds, Non tender Skin : Warm, Dry Musculoskeletal: Right knee mild warmth but no tenderness, able to move Neurological : Alert & oriented x3, No focal deficit , CN 2-12 within normal Objective Data Active Medications Albuterol Sulfate (Albuterol Sulfate 90 Mcg 8 Gm Inhaler) 2 puff INHALE Q4H PRN PRN Reason: shortness of breath or wheezing Cyanocobalamin (Cyanocobalamin (Vitamin B-12) 1,000 Mcg Tablet) 1,000 mcg PO DAILY [facility] Last Admin: 03/25/22 10:04 Dose: 1,000 mcg Documented By: RICHARD Doxycycline Monohydrate (Doxycycline Monohydrate 100 Mg Capsule) 100 mg PO Q12H [facility] Last Admin: 03/25/22 15:16 Dose: 100 mg Documented By: RICHARD Folic Acid (Folic Acid 1 Mg Tablet) 1 mg PO DAILY [facility] Last Admin: 03/25/22 10:04 Dose: 1 mg Documented By: RICHARD Ceftriaxone Sodium 1 gm/ (Sodium Chloride) 50 mls @ 100 mls/hr IV Q24H [facility] Last Infusion: 03/24/22 19:33 Dose: 0 mls/hr Documented By: SONIA Omeprazole (Omeprazole 20 Mg Capsule.) 20 mg PO DAILY@0630 [facility] Last Admin: 03/25/22 06:13 Dose: 20 mg Documented By: BLANCHE Pharmacy Consult (Consult Rx Perform Med Rec) 1 each MISCELLANE ONCE PRN PRN Reason: Consult order Pravastatin Sodium (Pravastatin Sodium 40 Mg Tablet) 40 mg PO DAILY [facility] Last Admin: 03/25/22 10:05 Dose: 40 mg Documented By: RICHARD Prednisone (Prednisone 20 Mg Tablet) 40 mg PO DAILY [facility] Last Admin: 03/25/22 10:05 Dose: 40 mg Documented By: RICHARD Ropinirole HCl (Ropinirole Hcl 2 Mg Tablet) 2 mg PO TID [facility] Last Admin: 03/25/22 15:16 Dose: 2 mg Documented By: RICHARD Sodium Chloride (0.9 % Sodium Chloride Flush 3 Ml Syringe) 3 ml IVFLUSH QSHIFT [facility] Last Admin: 03/25/22 10:05 Dose: 3 ml Documented By: RICHARD Labs CBC & Chem 7: 03/25/22 07:09 03/25/22 07:09 Labs: Laboratory Results - last 24 hr 03/25/22 03/25/22 07:09 07:09 MCV 83.6 MCH 25.6 L MCHC 30.6 L RDW 19.0 H Plt Count 636 H MPV 9.6 Absolute Nucleated RBC 0.000 Nucleated RBC % (auto) 0.0 Anion Gap 15 Estim Creat Clear Calc 62.2 Estimated GFR > 60 Fasting Glucose 109 H Calcium 8.4 D Magnesium 2.2 Total Bilirubin 0.6 Direct Bilirubin 0.3 AST 23 D ALT 9 Alkaline Phosphatase 60 Total Protein 6.2 L Albumin 3.2 L D Microbiology Microbiology Results: Microbiology 03/23/22 14:58 Gram Stain - Final Knee aspirate Anaerobic Culture - Preliminary No growth to date. Gross Specimen Examination - Final Fluid Crystals - Final Joint Fluid Culture - Final No growth after 2 days Assessment and Plan (1) Acquired telangiectasia of small and large intestines: Status: Acute (2) Symptomatic anemia: Status: Acute (3) Acute GI bleeding: Status: Acute Plan 77F with PMH COPD, chronic iron defeciency anemia due to diffuse small bowel telangiectasias, HTN, HLD, RLS, rheumatoid arthritis, hyperparathyroid s/p parathyroidectomy, presented with syncope syncope likely due to anemia, no recurrence after correcting hemoglobin monitor on tele echo still pending acute on chronic iron defeciency anemia due to diffuse small bowel telangiectasias continue ppi transfused 2 units prbc, hgb improved appropriatedly from 6.6 to 9 Monitor H and H right knee swelling PMN about 45K stain with polys no organisms, 1+ crystals prednisone for acute pseudogout ID appreaciated - empiric rocephin, doxy, follow up lyme follow up cultures covid 19 incidental no treatement for now HTN amlodipine hld statin RLS ropinirole hyperparathryoid s/p surgery stable COPD prn bronchodilators b12 defeciency start po supplement RA hold MTX, folic acid dvt prophylaxis- mechanical due to ongoing gi bleed full code reason for continued hospitalization: working up syncope, continue antibiotic pending final cultures from need to prevent possible decompensation and to septic knee. Quality Stroke Does the patient have a stroke diagnosis?: No VTE Prior VTE?: No VTE Risk Level:: Medical - moderate - high VTE Device Contraindication: N/A - Device Ordered VTE Drug Contraindication: Treatment Not Indicated
--- NOTE | 2022-03-25 16:48 | MHC.CM.PN ---
Per MD rounds no dc today. An infectious Disease consult has been ordered. DP home with or without services. Patient may need assist with transport.
[2022-03-25] MEDS: cefTRIAXone sodium 1 GM in 0.9 % Sodium Chloride 50 ML IV (17:34)
[2022-03-25 19:13] VITALS: BP 130/68; PULSE 91; RESP 16; TEMP 36; O2SAT 96
[2022-03-26 04:00] VITALS: BP 163/82; PULSE 16; RESP 16; TEMP 36.9; O2SAT 96
[2022-03-26 08:00] VITALS: BP 125/58; PULSE 83; RESP 20; TEMP 36.6; O2SAT 98
[2022-03-26 08:14] LABS: Hematocrit 28.3 % (37.0-47.0); Hemoglobin 8.7 g/dl (12.0-16.0); Mean Corpuscular HGB Conc 30.7 g/dl (31.0-35.0); Mean Corpuscular Hemoglobin 25.7 pg (27.0-33.0); Mean Corpuscular Volume 83.5 fL (80.0-98.0); Mean Platelet Volume 9.3 fL (9.4-12.3); NRBC Pct Auto 0.2 /100WBC (0.0-0.2); Platelet Count 675 X10*3/uL (160-400); Red Blood Count 3.39 X10*6/uL (4.20-5.50); Red Cell Distribution Width 19.5 % (11.0-16.0); White Blood Count 12.4 X10*3/uL (4.8-10.8)
[2022-03-26 08:21] LABS: Anion Gap 13 (12-20); Blood Urea Nitrogen 19 mg/dL (9-16); Carbon Dioxide 24 mmol/L (22-29); Chloride 109 mmol/L (96-108); Creatinine Clr Calc Pharmacy 53.9; Estimated Glomerular Filt Rate > 60; Glucose Random 85 mg/dL (60-115); Sodium 141 mmol/L (135-145)
[2022-03-26] MEDS: rOPINIRole HCL 2 MG TABLET PO (10:03)
[2022-03-26] MEDS: Folic Acid 1 MG TABLET PO (10:03)
[2022-03-26] MEDS: predniSONE 20 MG TABLET 40 MG PO (10:04)
[2022-03-26] MEDS: Pravastatin Sodium 40 MG TABLET PO (10:04)
[2022-03-26] MEDS: Cyanocobalamin (Vitamin B-12) 1,000 MCG TABLET 1000 MCG PO (10:04)
[2022-03-26] MEDS: 0.9 % Sodium Chloride Flush 3 ML SYRINGE IVFLUSH (10:04)
--- NOTE | 2022-03-26 11:24 | P.DS_ITS ---
DS: Providers Provider Date of Service: 03/26/22 Date of admission: 03/23/22 15:44 Primary care physician: Jolynn Jasmine NP Consults: 03/24/22 08:03 Consult to Infectious Diseases Routine Consulting Provider: Reva Santos Reason for consultation: covid in immunocompromised patient, knee effusion with 45K pmns DS: Diagnosis Discharge Diagnosis (1) Acquired telangiectasia of small and large intestines: Status: Acute (2) Symptomatic anemia: Status: Acute (3) Acute GI bleeding: Status: Acute DS: Summary Hospital Course Hospital Course: Admission note HPI 77F with PMH COPD, chronic iron defeciency anemia due to diffuse small bowel telangiectasias, HTN, HLD, RLS, rheumatoid arthritis, hyperparathyroid s/p parathyroidectomy, presented with syncope. patient is poor historian and does not remember events. she was standing waiting for iron infusion and witnesses state she passed out and was lowered to floor without injury. patient denies chest pain or palpitations, she reports sob. in ED found to have anemia with hgb 6.6. cth and c spine negative for trauma. was noted to have right knee edema and pain, this was aspirated - results pending. Hospital course Patient was admitted to the hospital for evaluation of syncopal episode. CT scan of the head was negative for any acute findings. Blood work was consistent with low hemoglobin level of 6.6 from baseline of above 10. Responded well to 2 units transfusion. Believed to be secondary to diffuse small bowel telangiectasia that was recently evaluated. No reported bleeding during the hospital stay as hemoglobin level remained stable. Complained of right [place] [address] with negative culture and evidence of crystals. Treated primarily with IV antibiotics and as id evaluated the patient and did not feel any evidence of septic knee. Responded well to steroid treatment. Will be discharged on ta pering dose of steroids for likely pseudogout. Noted to have COVID-19 at time of admission. Was not symptomatic and did not require any active treatment. Continue prednisone tapering dose as prescribed Come back to the hospital for any recurrence bleeding To follow-up with Gastroenterology and Rheumatology as outpatient Time Spent with Patient Time attestation: Total time spent providing and/or coordinating discharge services: Discharge coordination time: Greater than 30 minutes Quality: Safe Use of Opioids Does Pt have an Active Cancer Diagnosis on the Problem List?: No Quality: Stroke Does the patient have a stroke diagnosis?: No Physical Exam Vital Signs: Vital Signs: Last Vital Signs Temp 97.8 F 03/26/22 08:00 Pulse 83 03/26/22 08:00 Resp 20 03/26/22 08:00 BP 125/58 L 03/26/22 08:00 Pulse Ox 98 03/26/22 08:00 O2 Del Method 03/26/22 08:00 BMI result Body Mass Index 22.6 Const: Other: Constitutional : Awake, interactive, not in distress Neck : Normal inspection, Supple Cardiovascular : RRR, no JVP, no lower extremity edema Respiratory : good bilateral air entry, no crackles, wheezes or rhonchi Gastrointestinal: soft, lax, Normal bowel sounds, Non tender Skin : Warm, Dry Musculoskeletal: Right knee no erythema, warmth or tenderness, able to move Neurological : Alert & oriented x3, No focal deficit , CN 2-12 within normal DS: Data Data Completed and Pending Labs on day of discharge: Laboratory Results - last 24 hr 03/26/22 03/26/22 07:31 07:31 WBC 12.4 H RBC 3.39 L Hgb 8.7 L Hct 28.3 L MCV 83.5 MCH 25.7 L MCHC 30.7 L RDW 19.5 H Plt Count 675 H MPV 9.3 L Absolute Nucleated RBC 0.020 H Nucleated RBC % (auto) 0.2 Sodium 141 Potassium 5.0 Chloride 109 H Carbon Dioxide 24 Anion Gap 13 BUN 19 H Creatinine 0.67 Estim Creat Clear Calc 53.9 Estimated GFR > 60 Random Glucose 85 Calcium 9.0 D Preliminary micro results at discharge 03/23/22 14:58 Anaerobic Culture - Preliminary Knee aspirate No growth to date. Imaging CT scan - head: Radiologist's impression: ITS Impressions Chest X-Ray 03/23/22 13:39 IMPRESSION: No active cardiopulmonary disease Knee X-Ray 03/23/22 13:39 IMPRESSION: 1. There is moderate osteoarthritic change of the lateral joint space compartment of the right knee. 2. There is a small right knee joint effusion. Cervical Spine CT 03/23/22 13:55 IMPRESSION: No acute intracranial process seen. Age-related brain with chronic small vessel ischemic changes in both cerebral hemispheres. Grade 1 anterolisthesis C5-C6 with moderate left facet arthropathy as well. No visible acute fracture, dislocation or lytic process seen. Head CT 03/23/22 13:55 IMPRESSION: No acute intracranial process seen. Age-related brain with chronic small vessel ischemic changes in both cerebral hemispheres. Grade 1 anterolisthesis C5-C6 with moderate left facet arthropathy as well. No visible acute fracture, dislocation or lytic process seen. Chest CTA 03/23/22 16:55 IMPRESSION: 1. No evidence of central or segmental pulmonary embolus. Slightly limited assessment for detecting segmental pulmonary emboli in the left lower lobe due to motion artifact. 2. Mild right basilar and lingular atelectasis. No airspace consolidation or effusions. VTE: Negative with slight limitation as above. Discharge Plan Discharge Anticipated Discharge Date/Time: 03/26/22 11:15 Patient Disposition: Home, Self-Care Discharge Diagnosis: GI Bleed symptomatic anemia pseudogout Referrals: Jolynn Jasmine, [employer] [Primary Care Provider] - 1 Week Discharge Medications: New prednisone 10 mg tablet See Taper PO DAILY Qty: 30 0RF Taper: Prednisone 40 mg daily for 3 Days and 0 Hour 30 mg daily for 3 Days and 0 Hour 20 mg daily for 3 Days and 0 Hour 10 mg daily for 3 Days and 0 Hour Continued albuterol sulfate [ProAir HFA] 90 mcg/actuation HFA aerosol inhaler 2 puff inhalation Q4-6H PRN (Reason: shortness of breath or wheezing) 30 Days Qty: 8.5 2RF folic acid 1 mg tablet 1 mg PO DAILY Qty: 90 3RF ropinirole 1 mg tablet 2 mg PO TID pravastatin 40 mg tablet 40 mg PO DAILY amlodipine 2.5 mg tablet 2.5 mg PO DAILY methotrexate sodium 2.5 mg tablet 4 tab PO QWEEK omeprazole 20 mg capsule,delayed release(DR/EC) 20 mg PO DAILY (DME) blood pressure monitor Kit See Rx Instructions .Route Qty: 1 0RF Rx Instructions: check bp twice a week and when not feeling well acetaminophen [Tylenol] 325 mg capsule 650 mg PO Q6H PRN (Reason: pain) Qty: 30 0RF ferrous sulfate [Feosol] 325 mg (65 mg iron) tablet 325 mg PO DAILY Discharge Orders: Discharge Order (Routine); Ordered 03/26/22 Ordered By: Lizette Castillo Diet: Advance to usual diet Activity on Discharge: As tolerated Stand Alone Forms: Patient Portal Discharge page Care Plan Goals: Read below Health Concerns: Read below Plan of Treatment: Read below Assessment: You were admitted to the hospital for evaluation of syncope. Found to have blood-loss anemia requiring blood transfusion with good response as no reported bleeding during the hospital stay. Evaluated for right knee swelling that was evaluated by infectious disease specialist and treated with antibiotics and steroids. Believed to be a result of pseudogout inflammation of the knee. Continue prednisone tapering dose as prescribed Come back to the hospital for any recurrence bleeding To follow-up with Gastroenterology and Rheumatology as outpatient
[2022-03-26 12:00] VITALS: BP 131/63; PULSE 88; RESP 20; TEMP 36.1; O2SAT 98
--- NOTE | 2022-03-26 12:51 | MHC.CM.PN ---
IMM 03/26/22 Patient is discharged to home self care today. She has arranged for transportation home.
[2022-03-27 00:52] LABS: Lyme Abs Screen <0.90 index
== END 2022-03-26 13:30 | disposition home or self-care (01) | DRG 811 ==
LOC: HO.ED 15:21 → HO.EDOVER 15:48 → HO.IMC 17:48
PROVIDERS: Admitting Provider Internal Medicine; Emergency Provider Emergency Medicine Emergency Medical Services; PCP Hospitalist; Visit Provider Student in an Organized Health Care Education/Training Program
DX: D50.9 Iron deficiency anemia, unspecified (principal); U07.1 COVID-19; K31.819 Angiodysplasia of stomach and duodenum without bleeding; J44.9 Chronic obstructive pulmonary disease, unspecified; M06.9 Rheumatoid arthritis, unspecified; E78.5 Hyperlipidemia, unspecified; E53.8 Deficiency of other specified B group vitamins; I10 Essential (primary) hypertension; M81.0 Age-related osteoporosis without current pathological fracture; G25.81 Restless legs syndrome; F17.210 Nicotine dependence, cigarettes, uncomplicated; Z71.6 Tobacco abuse counseling; Z88.5 Allergy status to narcotic agent; Z79.899 Other long term (current) drug therapy
CPT/HCPCS: 36415; 36600; 70450; 71045; 71275; 72125; 73564; 80048; 80076; 82272; 82803; 82945; 83735; 84157; 84484; 85025; 85027; 86617; 86618; 86850; 86870; 86900; 86901; 86920; 86922; 87070; 87073; 87205; 87635; 89051; 89060; 93005; 99219; 99285; J0696; P9016; Q9967

== ENCOUNTER → 2022-04-07 12:46 | Outpatient (BNVA) | payer MEDICARE, SELFPAY | PROVIDERS: PCP Hospitalist; Visit Provider Student in an Organized Health Care Education/Training Program | DX: M05.79 Rheumatoid arthritis with rheumatoid factor of multiple sites without organ or systems involvement (principal); M11.261 Other chondrocalcinosis, right knee | CPT/HCPCS: 99202 ==

== ENCOUNTER 2022-07-02 10:42 | Outpatient (REF) | payer SELFPAY ==
[2022-07-02 10:56] LABS: MANUAL DIFF FLAG NO
[2022-07-02 11:31] LABS: Basophils Percent Auto 0.6 % (0-2); Eosinophils Absolute Auto 0.1 X10*3/uL (0.0-0.4); Eosinophils Percent Auto 1.3 % (0-4); Hematocrit 38.6 % (37.0-47.0); Hemoglobin 12.1 g/dl (12.0-16.0); Imm Gran Abs Auto 0.02 X10*3/uL (0.00-0.03); Imm Gran Pct Auto 0.4 % (0.0-0.4); Lymphocytes Absolute Auto 1.2 X10*3/uL (1.2-4.9); Lymphocytes Percent Auto 25.2 % (20-40); Mean Corpuscular HGB Conc 31.3 g/dl (31.0-35.0); Mean Corpuscular Hemoglobin 27.5 pg (27.0-33.0); Mean Corpuscular Volume 87.7 fL (80.0-98.0); Mean Platelet Volume 9.6 fL (9.4-12.3); Monocytes Absolute Auto 0.4 X10*3/uL (0.1-1.2); Monocytes Percent Auto 8.4 % (2-11); Neutrophils Percent Auto 64.1 % (45-73); Platelet Count 462 X10*3/uL (160-400); Red Cell Distribution Width 19.6 % (11.0-16.0); White Blood Count 4.6 X10*3/uL (4.8-10.8)
[2022-07-02 12:04] LABS: Erythrocyte Sedimentation Rate 18 MM/HR (0-20)
[2022-07-02 12:26] LABS: Alanine Aminotransferase 11 U/L (0-31); Albumin Level 4.3 g/dL (3.5-5.0); Alkaline Phosphatase 74 U/L (39-117); Anion Gap 14 (12-20); Aspartate Amino Transferase 16 U/L (5-31); Bilirubin Total 0.5 mg/dL (0.0-1.0); Blood Urea Nitrogen 14 mg/dL (9-16); C Reactive Protein 0.39 mg/dL (< or = 0.50); Calcium 9.6 mg/dL (8.4-10.2); Carbon Dioxide 27 mmol/L (22-29); Chloride 106 mmol/L (96-108); Estimated Glomerular Filt Rate > 60; Glucose Random 90 mg/dL (60-115); Potassium 4.9 mmol/L (3.3-5.1); Sodium 142 mmol/L (135-145); Total Protein 7.2 g/dL (6.5-8.0)
[2022-07-10 14:54] LABS: Centromere Protein A Ab <11 SI (<11); Centromere Protein B Ab <11 SI (<11); Fibrillarin Ab <11 SI (<11); PM SCL 100 Ab <11 SI (<11); PM SCL 75 Ab <11 SI (<11); RNA Polymerase III RP11 Ab <11 SI (<11); RNA Polymerase III RP155 Ab <11 SI (<11); SCL-70 Extractable Nuclear Ab <11 SI (<11); Th-To Ab <11 SI (<11); U1 SNRNP RNP 70KD <11 SI (<11); U1 SNRNP RNP A <11 SI (<11); U1 SNRNP RNP C <11 SI (<11)
== END 2022-07-02 10:43 | disposition home or self-care (01) ==
LOC: HO.LAB 10:42
PROVIDERS: PCP Hospitalist; Visit Provider Student in an Organized Health Care Education/Training Program
DX: M06.9 Rheumatoid arthritis, unspecified (principal)
CPT/HCPCS: 36415; 80053; 84182; 85025; 85652; 86140; 86235

== ENCOUNTER → 2022-07-07 12:44 | Outpatient (BNVA) | payer MEDICARE, SELFPAY | PROVIDERS: PCP Hospitalist; Visit Provider Student in an Organized Health Care Education/Training Program | DX: M05.79 Rheumatoid arthritis with rheumatoid factor of multiple sites without organ or systems involvement (principal); M11.261 Other chondrocalcinosis, right knee; Z79.631 Long term (current) use of antimetabolite agent | CPT/HCPCS: 99212 ==

== ENCOUNTER 2022-08-20 09:13 | Outpatient (REF) | payer MEDICARE, SELFPAY ==
[2022-08-20 09:32] LABS: MANUAL DIFF FLAG NO
[2022-08-20 09:50] LABS: Basophils Percent Auto 0.4 % (0-2); Eosinophils Absolute Auto 0.1 X10*3/uL (0.0-0.4); Eosinophils Percent Auto 2.1 % (0-4); Hematocrit 40.5 % (37.0-47.0); Hemoglobin 12.7 g/dl (12.0-16.0); Imm Gran Abs Auto 0.01 X10*3/uL (0.00-0.03); Imm Gran Pct Auto 0.2 % (0.0-0.4); Lymphocytes Absolute Auto 1.3 X10*3/uL (1.2-4.9); Lymphocytes Percent Auto 23.9 % (20-40); Mean Corpuscular HGB Conc 31.4 g/dl (31.0-35.0); Mean Corpuscular Hemoglobin 27.1 pg (27.0-33.0); Mean Corpuscular Volume 86.5 fL (80.0-98.0); Mean Platelet Volume 9.8 fL (9.4-12.3); Monocytes Absolute Auto 0.5 X10*3/uL (0.1-1.2); Monocytes Percent Auto 8.8 % (2-11); Neutrophils Absolute Auto 3.5 x10*3/uL (2.0-8.3); Neutrophils Percent Auto 64.6 % (45-73); Platelet Count 406 X10*3/uL (160-400); Red Blood Count 4.68 X10*6/uL (4.20-5.50); Red Cell Distribution Width 17.1 % (11.0-16.0); White Blood Count 5.4 X10*3/uL (4.8-10.8)
[2022-08-20 10:18] LABS: Alanine Aminotransferase 8 U/L (0-31); Albumin Level 4.2 g/dL (3.5-5.0); Alkaline Phosphatase 83 U/L (39-117); Anion Gap 11 (12-20); Aspartate Amino Transferase 14 U/L (5-31); Bilirubin Total 0.6 mg/dL (0.0-1.0); Blood Urea Nitrogen 10 mg/dL (9-16); C Reactive Protein 0.14 mg/dL (< or = 0.50); Calcium 9.3 mg/dL (8.4-10.2); Carbon Dioxide 27 mmol/L (22-29); Chloride 106 mmol/L (96-108); Cholesterol 201 mg/dL; Estimated Glomerular Filt Rate > 60; Glucose Random 92 mg/dL (60-115); HDL Cholesterol 62 mg/dL; LDL Cholesterol Calculated 121 mg/dl; Phosphorus 3.7 mg/dL (2.7-4.5); Potassium 4.3 mmol/L (3.3-5.1); Sodium 140 mmol/L (135-145); Total Protein 6.9 g/dL (6.5-8.0); Triglycerides 91 mg/dL
[2022-08-20 10:28] LABS: Erythrocyte Sedimentation Rate 17 MM/HR (0-20)
[2022-08-20 10:42] LABS: TSH reflex Free T4 2.19 uIU/mL (0.32-4.0); Vitamin D 25-OH Total 29.6 ng/mL (>30)
[2022-08-24 11:03] LABS: Calcium (PTHI) 9.5 mg/dL (8.6-10.4); PTHI 48 pg/mL (16-77)
[2022-08-26 13:53] LABS: Vitamin D 25-OH, D2 6 ng/mL; Vitamin D 25-OH, D3 21 ng/mL; Vitamin D 25-OH, Total 27 ng/mL (30-100)
[2022-08-27 15:19] LABS: Procollagen Type I Intact N 27 mcg/L (see note)
[2022-08-28 15:42] LABS: Centromere Protein A Ab <11 SI (<11); Centromere Protein B Ab <11 SI (<11); Fibrillarin Ab <11 SI (<11); PM SCL 100 Ab <11 SI (<11); PM SCL 75 Ab <11 SI (<11); RNA Polymerase III RP11 Ab <11 SI (<11); RNA Polymerase III RP155 Ab <11 SI (<11); SCL-70 Extractable Nuclear Ab <11 SI (<11); Th-To Ab <11 SI (<11); U1 SNRNP RNP 70KD <11 SI (<11); U1 SNRNP RNP A <11 SI (<11); U1 SNRNP RNP C <11 SI (<11)
== END 2022-08-20 09:14 | disposition home or self-care (01) ==
LOC: HO.LAB 09:13
PROVIDERS: PCP Hospitalist; Visit Provider Student in an Organized Health Care Education/Training Program
DX: M81.0 Age-related osteoporosis without current pathological fracture (principal); R53.83 Other fatigue; I10 Essential (primary) hypertension; K44.9 Diaphragmatic hernia without obstruction or gangrene; Z79.631 Long term (current) use of antimetabolite agent; Z13.21 Encounter for screening for nutritional disorder
CPT/HCPCS: 36415; 80053; 80061; 82306; 83519; 83735; 83970; 84100; 84182; 84443; 85025; 85652; 86140; 86235

== ENCOUNTER → 2022-09-25 10:41 | Outpatient (BNVA) | payer MEDICARE, SELFPAY | PROVIDERS: PCP Hospitalist; Visit Provider Student in an Organized Health Care Education/Training Program | DX: M05.79 Rheumatoid arthritis with rheumatoid factor of multiple sites without organ or systems involvement (principal); M81.0 Age-related osteoporosis without current pathological fracture; M11.261 Other chondrocalcinosis, right knee; Z79.631 Long term (current) use of antimetabolite agent | CPT/HCPCS: 99212 ==

== ENCOUNTER 2022-10-12 08:30 | Outpatient (REF) | payer MEDICARE, SELFPAY ==
[2022-10-12 08:58] LABS: MANUAL DIFF FLAG NO
[2022-10-12 09:38] LABS: Basophils Percent Auto 0.6 % (0-2); Eosinophils Absolute Auto 0.2 X10*3/uL (0.0-0.4); Eosinophils Percent Auto 4.3 % (0-4); Hematocrit 33.4 % (37.0-47.0); Hemoglobin 10.5 g/dl (12.0-16.0); Imm Gran Abs Auto 0.03 X10*3/uL (0.00-0.03); Imm Gran Pct Auto 0.6 % (0.0-0.4); Lymphocytes Absolute Auto 1.2 X10*3/uL (1.2-4.9); Lymphocytes Percent Auto 23.7 % (20-40); Mean Corpuscular HGB Conc 31.4 g/dl (31.0-35.0); Mean Corpuscular Hemoglobin 27.8 pg (27.0-33.0); Mean Corpuscular Volume 88.4 fL (80.0-98.0); Monocytes Absolute Auto 0.4 X10*3/uL (0.1-1.2); Monocytes Percent Auto 8.5 % (2-11); Neutrophils Absolute Auto 3.1 x10*3/uL (2.0-8.3); Neutrophils Percent Auto 62.3 % (45-73); Platelet Count 684 X10*3/uL (160-400); Red Blood Count 3.78 X10*6/uL (4.20-5.50); Red Cell Distribution Width 15.9 % (11.0-16.0); White Blood Count 4.9 X10*3/uL (4.8-10.8)
[2022-10-12 10:19] LABS: Alanine Aminotransferase 9 U/L (0-31); Albumin Level 3.7 g/dL (3.5-5.0); Alkaline Phosphatase 65 U/L (39-117); Anion Gap 13 (12-20); Aspartate Amino Transferase 15 U/L (5-31); Bilirubin Total 0.4 mg/dL (0.0-1.0); Blood Urea Nitrogen 14 mg/dL (9-16); C Reactive Protein 5.14 mg/dL (< or = 0.50); Calcium 9.2 mg/dL (8.4-10.2); Carbon Dioxide 25 mmol/L (22-29); Chloride 108 mmol/L (96-108); Erythrocyte Sedimentation Rate 77 MM/HR (0-20); Estimated Glomerular Filt Rate > 60; Glucose Random 98 mg/dL (60-115); Potassium 4.7 mmol/L (3.3-5.1); Sodium 141 mmol/L (135-145); Total Protein 6.6 g/dL (6.5-8.0)
[2022-10-12 11:42] LABS: HBS Num1 0.14 mIU/mL (0-7.99); HBc Num1 0.18 S/CO (0.00-0.79); Hepatitis A Antibody IgM 0.91 Index (0-0.79); Hepatitis B Core Antibody Nonreactive (Nonreactive); Hepatitis B Surface Antigen Negative (Negative); ~HepC Num1 0.15 S/CO (0.00-0.79); ~Hepatitis A Antibody IgM GRAYZONE (Nonreactive); ~Hepatitis B Surface Antibody NONREACTIVE (Nonreactive); ~Hepatitis C Antibody Nonreactive (Nonreactive)
[2022-10-14 20:43] LABS: TS Negative Control Passed; TS Panel A 0; TS Panel B 0; TS Positive Control Passed; TSpotTB Negative (Negative)
== END 2022-10-12 08:31 | disposition home or self-care (01) ==
LOC: HO.LAB 08:30
PROVIDERS: Visit Provider Student in an Organized Health Care Education/Training Program
DX: M06.9 Rheumatoid arthritis, unspecified (principal); Z11.7 Encounter for testing for latent tuberculosis infection; Z11.59 Encounter for screening for other viral diseases; Z72.89 Other problems related to lifestyle
CPT/HCPCS: 36415; 80053; 85025; 85652; 86140; 86481; 86704; 86706; 86709; 86803; 87340

== ENCOUNTER 2022-10-15 08:06 | Outpatient (REF) | payer MEDICARE, SELFPAY | END 2022-10-15 08:07 | disposition home or self-care (01) | LOC: HO.MDS 08:06 | PROVIDERS: Visit Provider Student in an Organized Health Care Education/Training Program | DX: M81.0 Age-related osteoporosis without current pathological fracture (principal) | CPT/HCPCS: 96365; J3489 ==

== ENCOUNTER 2022-12-24 07:42 | Outpatient (REF) | payer MEDICARE, SELFPAY ==
[2022-12-24 07:52] LABS: MANUAL DIFF FLAG NO
[2022-12-24 08:49] LABS: Basophils Percent Auto 0.6 % (0-2); Eosinophils Absolute Auto 0.1 X10*3/uL (0.0-0.4); Eosinophils Percent Auto 1.9 % (0-4); Hematocrit 38.9 % (37.0-47.0); Imm Gran Abs Auto 0.01 X10*3/uL (0.00-0.03); Imm Gran Pct Auto 0.2 % (0.0-0.4); Lymphocytes Absolute Auto 1.8 X10*3/uL (1.2-4.9); Mean Corpuscular HGB Conc 30.8 g/dl (31.0-35.0); Mean Corpuscular Hemoglobin 27.1 pg (27.0-33.0); Mean Corpuscular Volume 87.8 fL (80.0-98.0); Mean Platelet Volume 10.4 fL (9.4-12.3); Monocytes Absolute Auto 0.5 X10*3/uL (0.1-1.2); Monocytes Percent Auto 9.9 % (2-11); Neutrophils Absolute Auto 2.9 x10*3/uL (2.0-8.3); Neutrophils Percent Auto 54.4 % (45-73); Platelet Count 465 X10*3/uL (160-400); Red Blood Count 4.43 X10*6/uL (4.20-5.50); White Blood Count 5.4 X10*3/uL (4.8-10.8)
[2022-12-24 09:30] LABS: Erythrocyte Sedimentation Rate 14 MM/HR (0-20)
[2022-12-24 09:36] LABS: Alanine Aminotransferase 8 U/L (0-31); Albumin Level 4.2 g/dL (3.5-5.0); Alkaline Phosphatase 63 U/L (39-117); Anion Gap 13 (12-20); Aspartate Amino Transferase 16 U/L (5-31); Bilirubin Total 0.6 mg/dL (0.0-1.0); Blood Urea Nitrogen 11 mg/dL (9-16); C Reactive Protein < 0.10 mg/dL (< or = 0.50); Calcium 9.2 mg/dL (8.4-10.2); Carbon Dioxide 26 mmol/L (22-29); Chloride 106 mmol/L (96-108); Estimated Glomerular Filt Rate > 60; Glucose Random 82 mg/dL (60-115); Potassium 3.6 mmol/L (3.3-5.1); Sodium 141 mmol/L (135-145); Total Protein 7.4 g/dL (6.5-8.0)
== END 2022-12-24 07:43 | disposition home or self-care (01) ==
LOC: HO.LAB 07:42
PROVIDERS: Visit Provider Student in an Organized Health Care Education/Training Program
DX: Z13.89 Encounter for screening for other disorder (principal); Z79.631 Long term (current) use of antimetabolite agent
CPT/HCPCS: 36415; 80053; 85025; 85652; 86140

== ENCOUNTER 2022-12-29 07:23 | Outpatient (AMB) | payer MEDICARE, SELFPAY ==
[2022-12-29 07:31] VITALS: BP 116/82; PULSE 80; TEMP 36.1; O2SAT 92; BMI 22.2
--- NOTE | 2022-12-29 07:31 | MHC.OFFVIS ---
Intake Vital Signs 12/29/22 07:31 Height 5 ft 1 in Weight 117 lb 4.575 oz BMI 22.2 BP 116/82 Blood Pressure Location Rt brachial Position Sitting Pulse 80 Pulse Source Auscultation Temp 97 F Temp Source Skin Pulse Oximetry (%) 92 Oxygen Delivery Method Room Air Intake Visit Reasons: OA/Fibromyalgia Intake Note: Here for OA and fibromylagia follow up. Planer Setup Operator Required: No Accompanied by: Self / Same As Patient Allergies oxycodone [From OxyContin] Allergy (Mild, Verified 12/29/22 07:33) Hives Medication List - Last Reconciled 12/29/22 by Kirstin Linton MD albuterol sulfate 90 mcg/actuation (ProAir HFA) 2 puffs inhalation Q4-6H PRN 1 month amlodipine 2.5 mg PO DAILY blood pressure monitor check bp twice a week and when not feeling well ferrous sulfate (Feosol) 325 mg PO DAILY folic acid 1 mg PO DAILY ipratropium-albuterol 20-100 mcg/actuation (Combivent Respimat) 1 puff inhalation QID methotrexate sodium 10 mg PO QWEEK omeprazole 20 mg PO DAILY pravastatin 40 mg PO DAILY ropinirole 2 mg (2 x 1 mg) PO TID zoledronic zhfe-fqyeaqku-zjjfp 5 mg/100 mL 5 mg intravenously every 12 months HPI HPI Comments History of Present Illness Details 77-year-old female with seropositive RA returns for follow-up. She states that she feels well overall. Continues to have pain in her hands, she has reduced metal cabinet finisher strength which affects her ability to do dishes at home. She denies any tingling or numbness of her fingers. Continues to smoke about half a pack a day. Initial history: This is a 77-year-old female with hypertension, COPD, chronic smoker, GI bleeding (? Acquired bowel telangiectasias) currently on iron infusions who presents for evaluation of rheumatoid arthritis. She was apparently diagnosed with rheumatoid arthritis more than 10 years ago (+++ve RF & +++CCP) she initially saw Dr. Jenkins and was seeing Bradford Spears most recently. She stated that she was always on methotrexate 4 tabs weekly. There has been no change in medicines. She currently denies any joint pain, stiffness or swelling. She presented to the hospital 2 weeks ago and was found to have a swollen knee, right knee arthrocentesis showed significantly elevated white count and intracellular CPPD crystals consistent with pseudogout. Patient states she gets intermittent flares of knee swelling every 6 months or so. 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 Anemia COPD (chronic obstructive pulmonary disease) Hypertension Osteoporosis Restless leg syndrome Surgical History H/O neck surgery H/O parathyroidectomy Status post hip surgery Family History Father CAD (coronary artery disease) Social History Household Members: None Housing: Apartment Alcohol intake: never Patient Tobacco Use Status: Current everyday Tobacco user Tobacco use type: Cigarette Cigarettes Per Day: 10 Years Smoked: 55 Second Hand Smoke Exposure: Yes service: No Current occupational status: retired 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 Review of Systems [facility] Reports arthralgias and Reports muscle weakness Physical Exam Vital Signs: Last Vital Signs Temp 97 F 12/29/22 07:31 Pulse 80 12/29/22 07:31 BP 116/82 12/29/22 07:31 Pulse Ox 92 12/29/22 07:31 Oxygen Delivery Method Room Air 12/29/22 07:31 BMI result Body Mass Index 22.2 Const General: cooperative, comfortable and no acute distress HEENT Head: Yes normocephalic and Yes atraumatic Resp Effort & Inspection: normal respiratory effort and able to speak in complete sentences Skin General skin exam: pallor Rashes: no rashes Extrem Other: Right 2nd MCP swelling wthout tenderness MCP squeeze test positive bilaterally reduced bilateral hand metal cabinet finisher strength Bilateral ankle tenderness without swelling Bilateral MTP squeeze test positive Assessment & Plan Assessment & Plan (1) Rheumatoid arthritis: Comment: +++CCP +++RF dx around 2011 on MTX throughout (partially effective Code(s): M06.9 - Rheumatoid arthritis, unspecified Qualifiers: Rheumatoid arthritis location: multiple sites Rheumatoid factor presence: with rheumatoid factor Qualified Code(s): M05.79 - Rheumatoid arthritis with rheumatoid factor of multiple sites without organ or systems involvement Plan: This is a 77-year-old female with seropositive RA who presents for follow-up. Increasing methotrexate to 20 mg from 10 mg did not help her symptoms much. Upon evaluation today patient continues to have multiple tender joints. Need to add DMARDs. Discussed risks and benefits of hydroxychloroquine. Patient agreed to proceed. Start hydroxychloroquine 200 mg daily Labs before next visit in 3 months (2) Osteoporosis: Comment: DEXA 05/2021 L-spine T-score-3.2 Left forearm T-score-3.6 Left femoral neck T-score-4.1 Left total hip T-score -3.8 Reclast 10/30 Code(s): M81.0 - Age-related osteoporosis without current pathological fracture Qualifiers: Osteoporosis type: age-related Presence of current pathological fracture: unspecified Qualified Code(s): M81.0 - Age-related osteoporosis without current pathological fracture Plan: Severe osteoporosis. Reclast started 10/30 Repeat DEXA summer 2024 (3) Pseudogout of knee: Code(s): M11.269 - Other chondrocalcinosis, unspecified knee Qualifiers: Laterality: right Qualified Code(s): M11.261 - Other chondrocalcinosis, right knee Plan: in 03/31 when patient presented to the ED she had right knee effusion, synovial fluid showed 45,000 cells with positive CPPD crystals. No evidence of infection. Picture consistent with pseudogout. Patient states she gets these attacks about once every 6 months. Advised patient to come to the clinic soon if she has a flare-up, might consider adding colchicine. 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 Scleroderma antibodies are negative (5) emt intermediate methotrexate user: Code(s): Z79.631 - correction (current) use of antimetabolite agent Plan: Side effects of methotrexate were discussed with the patient in detail including oral ulcers, elevated LFTs, abdominal discomfort, and possible pancytopenia is. Will monitor patient for side effects with frequent lab work. Advised patient to take folic acid daily to prevent complications of methotrexate. Discussed risk of retinopathy with hydroxychloroquine. Referred patient to Ophthalmology (6) Nicotine dependence: Code(s): F17.200 - Nicotine dependence, unspecified, uncomplicated Qualifiers: Nicotine product type: cigarettes Plan: Long-term smoker. Continues to smoke. Discussed ill effects of smoking on health and association with increased rheumatoid arthritis activity. Counseled patient to quit or at least cut down Plan I spent 31 minutes reviewing patient's chart, evaluating patient, ordering diagnostic workup, counseling patient and documenting in the chart Orders: Referrals Ophthalmology Referral Z79.899 - Other fdc (current) drug therapy Medications: New hydroxychloroquine 200 mg PO DAILY 90 tabs 1RF Coding Level of Care Code Est Pt Level 4 (22760) Diagnoses Rheumatoid arthritis M05.79 Rheumatoid arthritis location: multiple sites Rheumatoid factor presence: with rheumatoid factor Osteoporosis M81.0 Osteoporosis type: age-related Presence of current pathological fracture: unspecified Pseudogout of knee M11.261 Laterality: right 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
== END 2022-12-29 07:55 | disposition home or self-care (01) ==
PROVIDERS: PCP Nurse Practitioner Family; Visit Provider Student in an Organized Health Care Education/Training Program
DX: M05.79 Rheumatoid arthritis with rheumatoid factor of multiple sites without organ or systems involvement (principal); M81.0 Age-related osteoporosis without current pathological fracture; M11.261 Other chondrocalcinosis, right knee; Z79.631 Long term (current) use of antimetabolite agent; F17.200 Nicotine dependence, unspecified, uncomplicated
CPT/HCPCS: 99214

== ENCOUNTER → 2022-12-29 07:23 | Outpatient (BNVA) | payer MEDICARE, SELFPAY | PROVIDERS: Visit Provider Student in an Organized Health Care Education/Training Program | DX: M05.79 Rheumatoid arthritis with rheumatoid factor of multiple sites without organ or systems involvement (principal); M81.0 Age-related osteoporosis without current pathological fracture; M11.261 Other chondrocalcinosis, right knee; F17.210 Nicotine dependence, cigarettes, uncomplicated; Z79.631 Long term (current) use of antimetabolite agent | CPT/HCPCS: 99212 ==

== ENCOUNTER 2023-02-22 12:37 | Outpatient (AMB) | payer MEDICARE, SELFPAY ==
[2023-02-22 12:51] VITALS: BP 134/76; PULSE 81; RESP 13; TEMP 36.4; O2SAT 98; BMI 22.9
--- NOTE | 2023-02-22 12:51 | A.OFFPC_ITS ---
Vital Signs 02/22/23 12:51 Height 5 ft 1 in Weight 121 lb 2 oz BMI 22.9 BP 134/76 Blood Pressure Location Rt brachial Position Sitting Respiration 13 Pulse 81 Pulse Source Pulse Oximeter Temp 97.6 F Temp Source Temporal Artery Scan Pulse Oximetry (%) 98 Oxygen Delivery Method Room Air Intake Visit Reasons: 3M follow up RLS osteoporosis/meds, Trans of care Intake Note: Patient would like a refill for her ropinirole and pravastatin. Occupational Therapy Teacher Required: No Accompanied by: Self / Same As Patient Allergies oxycodone [From OxyContin] Allergy (Mild, Verified 02/22/23 12:58) Hives Tobacco use date assessed: 07/13/22 Fall risk assessment: 2 + Falls in past year Last assessed Fall Risk: 02/22/23 Dental Screening Dental Screen Date: 02/22/23 Did you have a dental visit in the last 12 months?: No Did you have a dental problem in the last 6 months where you did not have access to dental care?: No Was dental information given to patient?: Yes HPI HPI Comments History of Present Illness Details 78-year-old female presents for transfer of care. Her form a PCP was JAQUELIN who is no longer with the practice. Her last office visit was on 07/13/2022. She had blood work done in August and December. Results were unremarkable except for slightly low vitamin-D level of 27. She has past medical history significant for hypertension, COPD, RLS, iron deficiency anemia, and, rheumatoid arthritis, high cholesterol, osteoporosis. She is followed by [facility] Rheumatology. Her next DEXA scan it is due in 2024. She notes that her last colonoscopy was at [facility] a year ago: normal. She notes that she no long performs pap smear test or mammogram. She had a normal mammogram last February. She states that she had a lung CT for lung cancer screening at [facility] this year: normal. She notes that her last eye exam was 3 years ago: Normal. She was referred to Ophthalmology (patient's preferred) by Rheumatology in December. However, the patient never followed up on this. Referral is changed from patient's preferred to [facility] Ophthalmology. She offers no complaints and denies acute symptoms. She admits to smoking 4-5 cigarette daily for the past 50 years. 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 Cognitive needs: No Hearing needs: No Vision needs: No Questionnaire Thrive Questionnaire Date Thrive assessed: 04/08/22 Review of Systems Const Details: Const Denies chills, Denies fatigue, Denies fever(s), Denies headache(s) and Denies weakness ENT Denies dizziness and Denies headache(s) Card Denies chest pain, Denies lightheadedness, Denies dyspnea and Denies other (Pal pitations) Resp Denies cough, Denies dyspnea, Denies wheezing and Denies other ( shortness of breath) GI Denies abdominal pain, Denies melena, Denies hematochezia, Denies change in bowel habits, Denies dyspepsia and Denies nausea Denies hematuria and Denies dysuria Musc Denies abnormal gait, Denies myalgias, Denies arthralgias, Denies numbness and Denies tingling Skin/Breast Denies rash, Denies unusual bruising and Denies wounds Neuro Denies abnormal gait, Denies dizziness, Denies headache(s), Denies memory loss, Denies numbness, Denies Sensory deficit (Neuro), Denies tingling and Denies weakness Psych Denies anxiety, Denies depression, Denies memory loss Endo Denies cold intolerance, Denies fatigue, Denies heat intolerance, Denies polydipsia and Denies polyuria Aller/Immun Denies wheezing Physical exam (Primary Care) Vital Signs: Last Vital Signs Temp 97.6 F 02/22/23 12:51 Pulse 81 02/22/23 12:51 Resp 13 02/22/23 12:51 Pulse Ox 98 02/22/23 12:51 Oxygen Delivery Method Room Air 02/22/23 12:51 BMI result Body Mass Index 22.9 Tobacco/Smoking Status: Tobacco use Status Tobacco use date assessed 07/13/22 07/13/22 08:35 Patient Tobacco Use Status Current everyday Tobacco 12/29/22 07:34 Tobacco use type Cigarette 12/29/22 07:34 Thrive Assessment: Date of Thrive Assessment Date Thrive assessed 04/08/22 07/13/22 08:35 Const Other: General: no acute distress and well developed Nutritional Appearance: well nourished Orientation/consciousness: patient oriented x3 HENMT Head: Yes normocephalic and Yes atraumatic Endentulous Eyes General: appearance normal, both eyes and all related structures Pupils: Equal, round and reactive pupils present EOM: EOMs intact bilaterally Resp Effort & Inspection: normal respiratory effort Auscultation: clear to auscultation bilaterally Cardio Rate: regular rate Rhythm: regular rhythm Heart sounds: S1 normal heart sound present, S2 normal heart sound present, no gallops, no murmurs and no rubs GI Palpation (GI): No Abdominal aortic bruit present, Soft to palpation, nontender, No hepatosplenomegaly present and No Rebound tenderness present Auscultation: normal bowel sounds General: Yes no CVA tenderness Back/Spine/Pelvis Back: no CVA tenderness Cervical Spine: cervical ROM normal and No Cervical spine tenderness Thoracic/Lumbar Spine: thoraco-lumbar ROM normal, No pain with thoraco-lumbar ROM, No thoracic spinal tenderness and No lumbar spinal tenderness Extrem General: Yes normal to inspection, No edema and No calf tenderness Skin General: warm and dry. Normal skin color. Normal skin turgor Neuro General: patient oriented x3, gait normal and no focal neuro deficit Cranial nerves: Yes Equal, round and reactive pupils present Cognition (Neuro): normal cognition Gait exam (Neuro): Normal gait present Sensory Exam: No Sensory deficit (Neuro) Psych Appearance: grossly normal Affect: normal affect Attitude: cooperative Thought process: Normal thought process present Assessment and Plan Assessment & Plan (1) Hypertension: Code(s): I10 - Essential (primary) hypertension Qualifiers: Hypertension type: primary hypertension Qualified Code(s): I10 - Essential (primary) hypertension Plan: Blood pressure is 134/76, within goal of less than 140/90 Continue current treatment regimen Low-sodium diet encouraged Return in 1 month for a complete physical exam or sooner with symptoms or concerns Verbalized understanding and agreed with treatment plan. Will request records from [facility] for colonoscopy and lung CT. (2) Restless leg syndrome: Code(s): G25.81 - Restless legs syndrome Plan: No acute symptoms Ropinirole as prescribed Return with symptoms or concerns Verbalized understanding and agreed with treatment plan. (3) COPD (chronic obstructive pulmonary disease): Code(s): J44.9 - Chronic obstructive pulmonary disease, unspecified Plan: No acute symptoms Albuterol and Combivent inhalers as prescribed Verbalized understanding and agreed with treatment plan. (4) Rheumatoid arthritis: Comment: +++CCP +++RF dx around 2011 on MTX throughout (partially effective Code(s): M06.9 - Rheumatoid arthritis, unspecified Qualifiers: Rheumatoid arthritis location: multiple sites Rheumatoid factor presence: with rheumatoid factor Qualified Code(s): M05.79 - Rheumatoid arthritis with rheumatoid factor of multiple sites without organ or systems involvement Plan: No acute symptoms Continue current treatment regimen Follow-up with Rheumatology as planned Verbalized understanding and agreed with treatment plan. (5) Osteoporosis: Comment: DEXA 05/2021 L-spine T-score-3.2 Left forearm T-score-3.6 Left femoral neck T-score-4.1 Left total hip T-score -3.8 Reclast 10/30 Code(s): M81.0 - Age-related osteoporosis without current pathological fracture Qualifiers: Osteoporosis type: age-related Presence of current pathological fracture: unspecified Qualified Code(s): M81.0 - Age-related osteoporosis without current pathological fracture Plan: As above (6) Nicotine dependence: Code(s): F17.200 - Nicotine dependence, unspecified, uncomplicated Qualifiers: Nicotine product type: cigarettes Plan: She notes that she has been smoking 4-5 cigarettes daily for over 50 years and has no desire to stop smoking. Instructed on the health risks and complications of cigarette smoking including worsening COPD and rheumatoid arthritis symptoms. Smoking cessation encouraged. Declines treatment regimen. She may inform her PCP if she changes her mind on treatment regimen for smoking cessation. Verbalized understanding and agreed with treatment plan. Orders: Referrals Ophthalmology Referral Z79.899 - Other long-term (current) drug therapy Medications: Changed From pravastatin 40 mg PO DAILY To pravastatin 40 mg PO DAILY 90 days 90 tabs 1RF Coding Level of Care Code Est Pt Level 4 (81054) Diagnoses Primary hypertension I10 Hypertension type: primary hypertension Restless leg syndrome G25.81 COPD (chronic obstructive pulmonary disease) J44.9 Rheumatoid arthritis involving multiple sites with positive rheumatoid factor M05.79 Rheumatoid arthritis location: multiple sites Rheumatoid factor presence: with rheumatoid factor Age related osteoporosis, unspecified pathological fracture presence M81.0 Osteoporosis type: age-related Presence of current pathological fracture: unspecified Nicotine dependence F17.200 Nicotine product type: cigarettes
== END 2023-02-22 13:32 | disposition home or self-care (01) ==
PROVIDERS: PCP Nurse Practitioner Family; Visit Provider Nurse Practitioner Family
DX: I10 Essential (primary) hypertension (principal); G25.81 Restless legs syndrome; J44.9 Chronic obstructive pulmonary disease, unspecified; M05.79 Rheumatoid arthritis with rheumatoid factor of multiple sites without organ or systems involvement; M81.0 Age-related osteoporosis without current pathological fracture; F17.200 Nicotine dependence, unspecified, uncomplicated
CPT/HCPCS: 99214

== ENCOUNTER 2023-03-15 07:57 | Outpatient (AMB) | payer MEDICARE, SELFPAY ==
--- NOTE | 2023-03-15 08:18 | A.OFFVIS_ITS ---
Intake Vital Signs 03/15/23 08:21 Height 5 ft 1 in Weight 120 lb BMI 22.7 BP 182/84 H Blood Pressure Location Lt brachial Position Sitting Pulse 73 Intake Visit Reasons: Discuss Colonoscopy Intake Note: Patient follow up for pre colonoscopy discuss. Patient denies any GI iissues. 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 Accompanied by: Self / Same As Patient Allergies oxycodone [From OxyContin] Allergy (Mild, Verified 03/15/23 08:17) Hives Medication List - Last Reconciled 03/15/23 by Erin Sepulveda PA-C albuterol sulfate 90 mcg/actuation (ProAir HFA) 2 puffs inhalation Q4-6H PRN 1 month amlodipine 2.5 mg PO DAILY blood pressure monitor check bp twice a week and when not feeling well ferrous sulfate (Feosol) 325 mg PO DAILY folic acid 1 mg PO DAILY hydroxychloroquine 200 mg PO DAILY ipratropium-albuterol 20-100 mcg/actuation (Combivent Respimat) 1 puff inhalation QID omeprazole 20 mg PO DAILY pravastatin 40 mg PO DAILY 90 days ropinirole 2 mg (2 x 1 mg) PO TID HPI HPI Comments History of Present Illness Details A 78 y/o female says she does not know why she is here- after chart review - discussed- she says she is NOT having another colonoscopy-in she reports that she had 1 just couple years ago she is not doing again Discussed BP-' I/m fine -no associated symptoms, no shortness of breath, chest pain headaches or dizziness appetite is good, bowels are normal. Reportedly had a recent lung scan that was normal. She smokes about half pack of cigarettes a day No nausea, vomiting, hematemesis, hematochezia, fever or chills reviewed note pcp- [facility] [address] [place] [address] Primary Care Office Visit Signed with Manuela Patient: Yoli Londono ADM/SER Date: 02/22/23 Loc: [id number].[facility] ADM/SER Time:1237 Attending Provider: Kirstin Waldrop CNP cc: Kirstin Waldrop CNP~ ADDENDUMAnnual screening was recommended for low density CT scan. Will referred to [facility] [place] [facility] for a colonoscopy. Addendum Documented By: Kirstin Waldrop 03/01/23 1209 Addendum Signed By: <Electronically signed by Kirstin Waldrop> 03/01/23 1209 ADDENDUMAccording to JAIR Jimenez records in the [facility] portal: the patient had negative low-density CT scan for lung cancer scre en on 04/07/2021. And will screening was recommended. 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 Cognitive needs: No Hearing needs: No Vision needs: No Review of Systems Const All systems reviewed & are unremarkable except as noted in HPI and below ENT Denies dysphagia Card Denies chest pain and Denies dyspnea Resp Denies dyspnea GI Denies no additional complaints, Denies abdominal pain, Denies melena, Denies bloating, Denies hematochezia, Denies change in bowel habits, Denies change in stool character, Denies constipation, Denies GI cramping, Denies dysphagia, Denies excessive flatus, Denies early satiety, Denies dyspepsia, Denies heartburn, Denies diarrhea, Denies loose stools, Denies nausea and Denies vomiting Physical Exam Vital Signs: Last Vital Signs Pulse 73 03/15/23 08:21 BP 182/84 H 03/15/23 08:21 BMI result Body Mass Index 22.7 Const General: no acute distress and alert Nutritional Appearance: thin Orientation/consciousness: patient oriented x3 Limitations: no limitations Eyes Sclerae: sclerae normal Resp Other: strong tobacco odor Effort & Inspection: normal respiratory effort and able to speak in complete sentences Auscultation: wheezes and diminished lung sounds Cardio Rate: regular rate Rhythm: regular rhythm GI Palpation (GI): Soft to palpation and nontender Auscultation: normal bowel sounds Skin General skin exam: no rashes or lesions noted Neuro General: patient oriented x3 Extrem General: Yes full ROM Psych Mental Status: mental status grossly normal Speech and movement: Clear speech present Affect: Labile affect present and Indifferent affect present Insight: Fair insight present (Psych) Judgement: Limited judgement present (Psych) Results Reviewed Results Reviewed: previous- notes CUE Capsule endoscopy date of service: 03/27/22 Indication: Anemia Findings: stomach mucosa normal. Duodenum entered at 5 min 58 dec. several scattered AVM seen in proximal and mid small bowel that were non bleeding. Largest AVM were in duodenum. Cecum reached at 3 hr 11 min Conclusion: esophagitis AVM if ongoing anemia can consider APC to the lesions vs supportive care. 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 Duodenum entered at 5 min 58 dec. several scattered AVM seen in proximal and mid small bowel that were non bleeding. Largest AVM were in duodenum. Cecum reached at 3 hr 11 min Conclusion: esophagitis AVM if ongoing anemia can consider APC to the lesions vs supportive care. Hypertensive, (2) Hypertension: Comment: In hypertensive, smoker, denies associated symptoms Code(s): I10 - Essential (primary) hypertension Qualifiers: Hypertension type: primary hypertension Qualified Code(s): I10 - Essential (primary) hypertension Plan: Declined recheck of BP (3) COPD (chronic obstructive pulmonary disease): Comment: Smoker, strong tobacco Code(s): J44.9 - Chronic obstructive pulmonary disease, unspecified Plan: Follow-up pulmonology (4) Abnormal colonoscopy: Comment: Reviewed Encouraged repeat colonoscopy Code(s): R93.3 - Abnormal findings on diagnostic imaging of other parts of digestive tract Plan: Repeat colonoscopy encouraged Plan Reviewed benefits versus risks-to include missing malignancy, however ultimately her decision Patient declines any intervention Declines colonoscopy Declines repeat blood pressure-encouraged to take medications as prescribed follow-up with PCP Patient Instructions: Reviewed benefits versus riskso include missing malignancy, however ultimately her decision Patient declines any intervention Declines colonoscopy Declines repeat blood pressure Encouraged to follow-up with PCP Should she reconsider information given for contact Coding Level of Care Code Est Pt Level 4 (20703) Diagnoses 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
[2023-03-15 08:21] VITALS: BP 182/84; PULSE 73; BMI 22.7
== END 2023-03-15 09:25 | disposition home or self-care (01) ==
PROVIDERS: PCP Nurse Practitioner Family; Visit Provider Physician Assistant
DX: I10 Essential (primary) hypertension (principal); J44.9 Chronic obstructive pulmonary disease, unspecified; R93.3 Abnormal findings on diagnostic imaging of other parts of digestive tract
CPT/HCPCS: 99214

== ENCOUNTER → 2023-03-15 07:57 | Outpatient (BNVA) | payer MEDICARE, SELFPAY | PROVIDERS: PCP Nurse Practitioner Family; Visit Provider Physician Assistant | DX: K55.20 Angiodysplasia of colon without hemorrhage (principal); D64.9 Anemia, unspecified; R93.3 Abnormal findings on diagnostic imaging of other parts of digestive tract; J44.9 Chronic obstructive pulmonary disease, unspecified | CPT/HCPCS: 99212 ==

== ENCOUNTER 2023-03-16 09:02 | Outpatient (REF) | payer MEDICARE, SELFPAY ==
[2023-03-16 09:24] LABS: MANUAL DIFF FLAG NO
[2023-03-16 09:59] LABS: Basophils Percent Auto 0.6 % (0-2); Eosinophils Absolute Auto 0.1 X10*3/uL (0.0-0.4); Eosinophils Percent Auto 1.9 % (0-4); Hematocrit 36.1 % (37.0-47.0); Hemoglobin 11.2 g/dl (12.0-16.0); Imm Gran Abs Auto 0.03 X10*3/uL (0.00-0.03); Imm Gran Pct Auto 0.6 % (0.0-0.4); Lymphocytes Absolute Auto 1.6 X10*3/uL (1.2-4.9); Lymphocytes Percent Auto 31.3 % (20-40); Mean Corpuscular Hemoglobin 26.1 pg (27.0-33.0); Mean Corpuscular Volume 84.1 fL (80.0-98.0); Mean Platelet Volume 9.8 fL (9.4-12.3); Monocytes Absolute Auto 0.6 X10*3/uL (0.1-1.2); Monocytes Percent Auto 11.1 % (2-11); Neutrophils Absolute Auto 2.9 x10*3/uL (2.0-8.3); Neutrophils Percent Auto 54.5 % (45-73); Platelet Count 522 X10*3/uL (160-400); Red Blood Count 4.29 X10*6/uL (4.20-5.50); Red Cell Distribution Width 16.8 % (11.0-16.0); White Blood Count 5.2 X10*3/uL (4.8-10.8)
[2023-03-16 10:36] LABS: Alanine Aminotransferase 9 U/L (0-31); Albumin Level 4.1 g/dL (3.5-5.0); Alkaline Phosphatase 59 U/L (39-117); Anion Gap 11 (12-20); Aspartate Amino Transferase 19 U/L (5-31); Bilirubin Total 0.5 mg/dL (0.0-1.0); Blood Urea Nitrogen 11 mg/dL (9-16); C Reactive Protein < 0.10 mg/dL (< or = 0.50); Calcium 9.2 mg/dL (8.4-10.2); Carbon Dioxide 26 mmol/L (22-29); Chloride 108 mmol/L (96-108); Estimated Glomerular Filt Rate > 60; Glucose Random 91 mg/dL (60-115); Potassium 4.2 mmol/L (3.3-5.1); Sodium 141 mmol/L (135-145); Total Protein 7.5 g/dL (6.5-8.0)
[2023-03-16 10:45] LABS: Erythrocyte Sedimentation Rate 23 MM/HR (0-20)
== END 2023-03-16 09:03 | disposition home or self-care (01) ==
LOC: HO.LAB 09:02
PROVIDERS: PCP Student in an Organized Health Care Education/Training Program; Visit Provider Student in an Organized Health Care Education/Training Program
DX: M81.0 Age-related osteoporosis without current pathological fracture (principal); Z79.631 Long term (current) use of antimetabolite agent
CPT/HCPCS: 36415; 80053; 85025; 85652; 86140

== ENCOUNTER 2023-03-25 07:42 | Outpatient (AMB) | payer MEDICARE, SELFPAY ==
[2023-03-25 08:02] VITALS: BP 160/80; PULSE 69; TEMP 35.9; O2SAT 98; BMI 23.0
--- NOTE | 2023-03-25 08:02 | A.OFFVIS_ITS ---
Intake Vital Signs 03/25/23 08:02 Height 5 ft 1 in Weight 121 lb 14.65 oz BMI 23.0 BP 160/80 H Blood Pressure Location Rt brachial Position Sitting Pulse 69 Pulse Source Pulse Oximeter Temp 96.6 F L Temp Source Skin Pulse Oximetry (%) 98 Intake Visit Reasons: RA Intake Note: Pt last seen 12/29/22, presents today for follow up. Plaquenil 200mg daily; at last visit she was referred to ophthalmology PVE[facility] Darnell Pelayo [address] 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: No Accompanied by: Self / Same As Patient Allergies oxycodone [From OxyContin] Allergy (Mild, Verified 03/25/23 08:04) Hives Medication List - Last Reconciled 03/25/23 by Kirstin Linton MD albuterol sulfate 90 mcg/actuation (ProAir HFA) 2 puffs inhalation Q4-6H PRN 1 month amlodipine 2.5 mg PO DAILY blood pressure monitor check bp twice a week and when not feeling well ferrous sulfate (Feosol) 325 mg PO DAILY folic acid 1 mg PO DAILY hydroxychloroquine 200 mg PO DAILY ipratropium-albuterol 20-100 mcg/actuation (Combivent Respimat) 1 puff inhalation QID omeprazole 20 mg PO DAILY pravastatin 40 mg PO DAILY 90 days ropinirole 2 mg (2 x 1 mg) PO TID HPI HPI Comments History of Present Illness Details 78-year-old female with seropositive RA returns for follow-up. Last visit I added hydroxychloroquine to her methotrexate. Apparently patient did not fully understand. She discontinued methotrexate and started hydr oxychloroquine. Hydroxychloroquine is well tolerated. She was evaluated by Dr. Pelayo 1 or 2 weeks ago. She states that she feels about the same overall with regards to her arthritis. She states that her entire lower right leg hurts at night. States that she has been sick with flu-like symptoms for the last week. She has congestion and cough but no fevers or shortness of breath. Initial history: This is a 77-year-old female with hypertension, COPD, chronic smoker, GI bleeding (? Acquired bowel telangiectasias) currently on iron infusions who presents for evaluation of rheumatoid arthritis. She was apparently diagnosed with rheumatoid arthritis more than 10 years ago (+++ve RF & +++CCP) she initially saw Dr. Jenkins and was seeing Bradford Spears most recently. She stated that she was always on methotrexate 4 tabs weekly. There has been no change in medicines. She currently denies any joint pain, stiffness or swelling. She presented to the hospital 2 weeks ago and was found to have a swollen knee, right knee arthrocentesis showed significantly elevated white count and intracellular CPPD crystals consistent with pseudogout. Patient states she gets intermittent flares of knee swelling every 6 months or so. 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 Cognitive needs: No Hearing needs: No Vision needs: No Review of Systems Resp Reports chest congestion and Reports cough Musc Reports arthralgias Physical Exam Vital Signs: Last Vital Signs Temp 96.6 F L 03/25/23 08:02 Pulse 69 03/25/23 08:02 BP 160/80 H 03/25/23 08:02 Pulse Ox 98 03/25/23 08:02 BMI result Body Mass Index 23.0 Const General: cooperative, comfortable and no acute distress HEENT Head: Yes normocephalic and Yes atraumatic Resp Effort & Inspection: normal respiratory effort and able to speak in complete sentences Auscultation: rhonchi Cardio Rate: regular rate Rhythm: regular rhythm Skin General skin exam: pallor Rashes: no rashes Extrem Other: Right 2nd MCP swelling wthout tenderness Right 2nd PIP swelling and tenderness MCP squeeze test positive on the left reduced bilateral hand rn patient services strength Right ankle swelling and tenderness Negative MTP squeeze test bilaterally Assessment & Plan Assessment & Plan (1) Rheumatoid arthritis: Comment: +++CCP +++RF dx around 2011 on MTX throughout (partially effective) HCQ 12/2022 partially effective Code(s): M06.9 - Rheumatoid arthritis, unspecified Qualifiers: Rheumatoid arthritis location: multiple sites Rheumatoid factor presence: with rheumatoid factor Qualified Code(s): M05.79 - Rheumatoid arthritis with rheumatoid factor of multiple sites without organ or systems involvement Plan: This is a 78-year-old female with seropositive RA who presents for follow-up. Last visit hydroxychloroquine was added to her 10 mg of methotrexate. Apparently patient misunderstood and she switched methotrexate to hydroxychloroquine. On exam today patient continues to have few swollen and few tender joints. Advised patient to restart methotrexate 10 mg weekly. Restart folic acid 1 mg daily Labs before next visit in 3 months (2) Osteoporosis: Comment: DEXA 05/2021 L-spine T-score-3.2 Left forearm T-score-3.6 Left femoral neck T-score-4.1 Left total hip T-score -3.8 Reclast 10/30 Code(s): M81.0 - Age-related osteoporosis without current pathological fracture Qualifiers: Osteoporosis type: age-related Presence of current pathological fracture: unspecified Qualified Code(s): M81.0 - Age-related osteoporosis without current pathological fracture Plan: Severe osteoporosis. Reclast started 10/30 Repeat DEXA summer 2024 (3) Pseudogout of knee: Code(s): M11.269 - Other chondrocalcinosis, unspecified knee Qualifiers: Laterality: right Qualified Code(s): M11.261 - Other chondrocalcinosis, right knee Plan: in 03/31 when patient presented to the ED she had right knee effusion, synovial fluid showed 45,000 cells with positive CPPD crystals. No evidence of inf ection. Picture consistent with pseudogout. Patient states she gets these attacks about once every 6 months. Advised patient to come to the clinic soon if she has a flare-up, might consider adding colchicine. 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 Continues to smoke. Discussed ill effects of smoking on health and association with increased rheumatoid arthritis activity. Counseled patient to quit or at least cut down (6) Long-term use of hydroxychloroquine: Code(s): Z79.899 - Other alf (current) drug therapy Plan: Patient was just evaluated by Dr. Pelayo. We'll request records (7) Immunization counseling: Code(s): Z71.85 - Encounter for immunization safety counseling Plan: Patient received the flu vaccine for this season. She is planning to get the new COVID booster. Advised patient to hold methotrexate for 2 doses after vaccination Plan I spent 31 minutes reviewing patient's chart, evaluating patient, ordering diagnostic workup, counseling patient and documenting in the chart Coding Level of Care Code Est Pt Level 5 (20841) Diagnoses Rheumatoid arthritis involving multiple sites with positive rheumatoid factor M05.79 Rheumatoid arthritis location: multiple sites Rheumatoid factor presence: with rheumatoid factor Age related osteoporosis, unspecified pathological fracture presence M81.0 Osteoporosis type: age-related Presence of current pathological fracture: unspecified Pseudogout of right knee M11.261 Laterality: right technician terminal and repeater methotrexate user Z79.631 Nicotine dependence F17.200 Nicotine product type: cigarettes Long-term use of hydroxychloroquine Z79.899 Immunization counseling Z71.85
== END 2023-03-25 08:31 | disposition home or self-care (01) ==
PROVIDERS: PCP Student in an Organized Health Care Education/Training Program; Visit Provider Student in an Organized Health Care Education/Training Program
DX: M05.79 Rheumatoid arthritis with rheumatoid factor of multiple sites without organ or systems involvement (principal); M81.0 Age-related osteoporosis without current pathological fracture; M11.261 Other chondrocalcinosis, right knee; Z79.631 Long term (current) use of antimetabolite agent; F17.200 Nicotine dependence, unspecified, uncomplicated; Z79.899 Other long term (current) drug therapy; Z71.85 Encounter for immunization safety counseling
CPT/HCPCS: 99214

== ENCOUNTER → 2023-03-25 07:42 | Outpatient (BNVA) | payer MEDICARE, SELFPAY | PROVIDERS: PCP Student in an Organized Health Care Education/Training Program; Visit Provider Student in an Organized Health Care Education/Training Program | DX: M05.79 Rheumatoid arthritis with rheumatoid factor of multiple sites without organ or systems involvement (principal); M81.0 Age-related osteoporosis without current pathological fracture; M11.261 Other chondrocalcinosis, right knee; F17.210 Nicotine dependence, cigarettes, uncomplicated; Z79.631 Long term (current) use of antimetabolite agent; Z79.899 Other long term (current) drug therapy; Z71.85 Encounter for immunization safety counseling | CPT/HCPCS: 99212 ==

== ENCOUNTER 2023-03-30 10:38 | Outpatient (AMB) | payer MEDICARE, SELFPAY ==
--- NOTE | 2023-03-30 10:48 | MHC.PC.OV ---
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 Accompanied by: Self / Same As Patient Allergies oxycodone [From OxyContin] Allergy (Mild, Verified 03/30/23 11:13) Hives Medication List - Last Reconciled 03/30/23 by Kirstin Waldrop CNP albuterol sulfate 90 mcg/actuation (ProAir HFA) 2 puffs inhalation Q4-6H PRN 1 month amlodipine 2.5 mg PO DAILY blood pressure monitor check bp twice a week and when not feeling well ferrous sulfate (Feosol) 325 mg PO DAILY folic acid 1 mg PO DAILY hydroxychloroquine 200 mg PO DAILY ipratropium-albuterol 20-100 mcg/actuation (Combivent Respimat) 1 puff inhalation QID omeprazole 20 mg PO DAILY pravastatin 40 mg PO DAILY 90 days ropinirole 2 mg (2 x 1 mg) PO TID Tobacco use date assessed: 03/30/23 Fall risk assessment: No Falls in past year Last assessed Fall Risk: 03/30/23 Dental Screening Dental Screen Date: 03/30/23 Did you have a dental visit in the last 12 months?: No Did you have a dental problem in the last 6 months where you did not have access to dental care?: No Was dental information given to patient?: Yes HPI HPI Comments History of Present Illness Details 78-year-old female presents for an extended physical exam She has past medical history significant for hypertension, COPD, RLS, iron deficiency anemia, and, rheumatoid arthritis, high cholesterol, osteoporosis. She admits to taking her medications as prescribed with no adverse reactions She offers no complaints and denies acute symptoms She notes that she currently 3-4 cigarette daily and has been smoking daily for the past 50 years. She is followed by [facility] Her next DEXA scan it is due in 2024. 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 She had an anal Pap on 09/05/2020 which was negative for intraepithelial lesion or malignancy Her last LDCT for lung cancer screening was on 04/07/2021: Negative She notes that she no long performs pap smear test or mammogram. She had a normal mammogram last February. 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 1. Little interest or pleasure in doing things: nearly every day 2. Feeling down, depressed, or hopeless: not at all 3. Trouble falling or staying asleep, or sleeping too much: nearly every day 4. Feeling tired or having little energy: more than half the days 5. Poor appetite or overeating: not at all 6. Feeling bad about yourself - or that you are a failure or have let yourself or your family down: not at all 7. Trouble concentrating on things, such as reading the newspaper or watching television: not at all 8. Moving or speaking so slowly that other people could have noticed. Or the opposite - being so fidgety or restless that you have been moving around a lot more than usual: not at all 9. Thoughts that you would be better off or of hurting yourself in some way: not at all Total score: 8 Depression Screening Interpretation: Positive Depression Screening Done: Yes 91271 - PHQ-9 Billing: Yes Source: Developed by Drs. Mesfin Singh, Naga Rousseau and colleagues, with an educational silvestre from [employer]. Thrive Questionnaire Date Thrive assessed: 03/30/23 I am a: Patient What is your living situation today?: I have a steady place to live Within the past 12 months, did the food you bought not last and you didn't have the money to get more?: Never true Within the past 12 months, did you worry whether your food would run out before you got money to buy more?: Never true Do you have trouble paying for medicines?: No Do you have trouble getting transportation to medical appointments?: No Do you have trouble paying your heating and electricity bill?: No Do you have trouble taking care of your child, family member or friend?: No Do you have trouble with day-to-day activities such as bathing, preparing meals, shopping, managing finances, etc.?: No Are you currently unemployed and looking for a job?: No Are you interested in more education?: No Please select the resources that you would like help with: None Currently or been in a relationship where the following occur: no concerns reported AUDIT C Alcohol Use Questionnaire (AUDIT-C) 1. How often do you have a drink containing alcohol?: Never 3. How often do you have six or more drinks on one occasion?: Never Total Score: 0 MARVA-7 AMB Questionnaire MARVA-7 Date MARVA - 7 assessed: 03/30/23 Feeling nervous, anxious, or on edge: 0 = Not at all Not being able to stop or control worryin = Not at all Worrying too much about different things: 0 = Not at all Trouble relaxin = Not at all Being so restless that it is hard to sit still: 0 = Not at all Becoming easily annoyed or irritable: 0 = Not at all Feeling afraid as if something awful might happen: 0 = Not at all Total MARVA-7 score (0-4 normal; 5-9 mild; 10-14 moderate; 15-21 severe): 0 Source: Developed by Raiza Hernandez Kurt Kroenke and colleagues, with an educational silvestre from [employer]. MARVA-7 Assessment Billing MARVA-7 Assessment Tool: MARVA-7 Assessment 49897 ACT Questionnaire In the past 4 weeks, how much of the time did your asthma keep you from getting as much done at work, school or at home?: None of the time During the past 4 weeks, how often have you had shortness of breath?: 1-2 times a week During the past 4 weeks, how often did your asthma symptoms wake you up at night or earlier than usual in the morning?: Not at all During the past 4 weeks, how often have you had to use your rescue inhaler or nebulizer medication?: Not at all How would you rate your asthma control during the past 4 weeks?: Well controlled ACT Interpretation: Negative Score: 23 Review of Systems Const Details: Denies chills, Denies fatigue, Denies fever(s), Denies headache(s) and Denies weakness HEENT Denies change in vision, Denies dizziness, Denies headache(s), Denies hearing loss, Denies nasal congestion, Denies sinus pain, Denies sinus pressure and Denies sore throat Card Denies chest pain, Denies lightheadedness, Denies dyspnea and Denies other (palpitations) Resp Denies cough, Denies dyspnea and Denies wheezing GI Denies abdominal pain, Denies melena, Denies hematochezia, Denies change in bowel habits, Denies dyspepsia and Denies nausea Denies hematuria and Denies dysuria Musc Denies abnormal gait, Denies myalgias, Denies arthralgias, Denies numbness and Denies tingling Skin/Breast Denies rash, Denies unusual bruising and Denies wounds Neuro Denies abnormal gait, Denies dizziness, Denies headache(s), Denies memory loss, Denies numbness, Denies Sensory deficit (Neuro), Denies tingling and Denies weakness Psych Denies anxiety, Denies depression and Denies memory loss Endo Denies cold intolerance, Denies fatigue, Denies heat intolerance, Denies polydipsia and Denies polyuria Lenin/Lymph Denies easy bleeding and Denies easy bruising Aller/Immun Denies wheezing Physical exam (Primary Care) Vital Signs: Last Vital Signs Temp 97.4 F 03/30/23 10:49 Pulse 85 03/30/23 10:49 Resp 13 03/30/23 10:49 BP 136/70 03/30/23 10:49 Pulse Ox 99 03/30/23 10:49 Oxygen Delivery Method Room Air 03/30/23 10:49 BMI result Body Mass Index 23.0 Tobacco/Smoking Status: Tobacco use Status Tobacco use date assessed 03/30/23 03/30/23 11:02 Patient Tobacco Use Status Current everyday Tobacco 03/30/23 11:02 Tobacco use type Cigarette 03/30/23 11:02 e-Cigarette/Vaping Use Never Used 03/30/23 11:02 PHQ-9: PHQ-9 Score PHQ-9: Total score 8 03/30/23 11:15 Depression Screening Interpretation: Positive Thrive Assessment: Date of Thrive Assessment Date Thrive assessed 03/30/23 03/30/23 11:02 Currently or been in a relationship where the following occur: no concerns reported Const Other: General: no acute distress, well developed, alert and awake Nutritional Appearance: well nourished Orientation/consciousness: patient oriented x3 HENMT Head: Yes normocephalic and Yes atraumatic Ears: hearing grossly normal bilaterally and TM's normal bilaterally General nose exam: Normal external nose present and Normal nares present Mouth: Normal oral and palatal mucosa present and moist mucous membranes Teeth and gingiva: dentition normal Throat: Yes oropharynx normal Eyes Pupils: Equal, round and reactive pupils present and Pupil accommodation reflex normal EOM: EOMs intact bilaterally Neck Neck: Yes normal visual inspection, Yes no lymphadenopathy and Yes trachea midline Thyroid: Thyroid normal Carotids: no bruits Lymphatic: no lymphadenopathy noted Chest Chest palpation & inspection: normal inspection of the chest Resp Effort & Inspection: normal respiratory effort Auscultation: clear to auscultation bilaterally Cardio Rate: regular rate Rhythm: regular rhythm Heart sounds: S1 normal heart sound present, S2 normal heart sound present, no gallops, no murmurs and no rubs Bruits: no abdominal aortic bruits and no carotid bruits GI Palpation (GI): No Abdominal aortic bruit present, Soft to palpation, nontender, No hepatosplenomegaly present and No Rebound tenderness present Auscultation: normal bowel sounds General: Yes no CVA tenderness Back/Spine/Pelvis Back: no CVA tenderness Cervical Spine: cervical ROM normal and No Cervical spine tenderness Thoracic/Lumbar Spine: thoraco-lumbar ROM normal, No pain with thoraco-lumbar ROM, No thoracic spinal tenderness and No lumbar spinal tenderness Skin General: warm and dry. Normal skin color. Normal skin turgor Lesions: no lesions Rashes: no rashes Trauma: no lacerations or abrasions Wounds: no wounds Nails: normal Neuro General: patient oriented x3, gait normal and CN's II-XI intact bilaterally Cranial nerves: Yes Equal, round and reactive pupils present Cognition (Neuro): normal cognition Gait exam (Neuro): Normal gait present Motor exam (neuro): 5/5 motor strength present throughout Sensory Exam: No Sensory deficit (Neuro) Deep tendon reflexes (DTR's): Right patellar reflex intensity grade: 2+ and Left patellar reflex intensity grade: 2+ Extrem General: Yes normal to inspection, No edema and No calf tenderness Psych Appearance: grossly normal Affect: normal affect Attitude: cooperative Thought process: Normal thought process present Assessment and Plan Assessment & Plan (1) Normal physical examination, routine: Code(s): Z00.00 - Encounter for general adult medical examination without abnormal findings Plan: No significant physical restrictions or limitations noted Her last eye exam was 03/19/2023 Advised to follow-up in 2 months for hypertension iron deficiency anemia Return sooner with symptoms or concerns Verbalized understanding and agreed with treatment plan (2) Iron deficiency anemia: Code(s): D50.9 - Iron deficiency anemia, unspecified Plan: She had blood work done 2 weeks ago. Her H&H was slightly low, 11.2 and 36.1 respectively Will recheck CBC in 2 months. Advised to get blood work done before her next visit Follow-up in 2 month or return sooner with symptoms or concerns Verbalized understanding and agreed with treatment plan (3) Hypertension: Code(s): I10 - Essential (primary) hypertension Qualifiers: Hypertension type: primary hypertension Qualified Code(s): I10 - Essential (primary) hypertension Plan: Blood pressure is 136/70, within goal of less than 140/90 Continue with current treatment regimen Low-sodium diet encouraged Follow-up in 2 months Verbalized understanding and agreed with treatment plan (4) Hyperlipidemia: Code(s): E78.5 - Hyperlipidemia, unspecified Plan: Last lipid panel blood work was in August 2022 Total cholesterol and LDL were slightly elevated, 201, and 121 respectively Advised to limits foods high in saturated fat and avoid foods high trans fat Will recheck lipid levels in 2 months. Advised to fast for 10-12 hours, may drink water only, and get blood work done before next visit Follow-up in 2 months Verbalized understanding and agreed treatment plan (5) Nicotine dependence: Code(s): F17.200 - Nicotine dependence, unspecified, uncomplicated Qualifiers: Nicotine product type: cigarettes Plan: She currently smokes 3-4 cigarettes daily. She has been smoking daily for the past 50 years Declines treatment for smoking cessation Instructed on the health risks and complications of cigarette smoking Smoking cessation encouraged Her last LDCT for lung cancer screening was in 2020. LDCT ordered Orders: Orders Complete Blood Count no Diff 2 Months D50.9 - Iron deficiency anemia, unspecified Coding Level of Care Code Est Pt Prev Care >65y(45964) Diagnoses Normal physical examination, routine Z00.00 Iron deficiency anemia D50.9 Primary hypertension I10 Hypertension type: primary hypertension Hyperlipidemia E78.5 Nicotine dependence F17.200 Nicotine product type: cigarettes Additional Codes MARVA-7 Assessment Billing - MARVA-7 Assessment Tool: MARVA-7 Assessment [id number] ([id number])
[2023-03-30 10:49] VITALS: BP 136/70; PULSE 85; RESP 13; TEMP 36.3; O2SAT 99; BMI 23.0
== END 2023-03-30 11:37 | disposition home or self-care (01) ==
PROVIDERS: PCP Nurse Practitioner Family; Visit Provider Nurse Practitioner Family
DX: Z00.00 Encounter for general adult medical examination without abnormal findings (principal); D50.9 Iron deficiency anemia, unspecified; I10 Essential (primary) hypertension; E78.5 Hyperlipidemia, unspecified; F17.210 Nicotine dependence, cigarettes, uncomplicated
CPT/HCPCS: 99397

== ENCOUNTER 2023-05-31 12:29 | Outpatient (AMB) | payer MEDICARE, SELFPAY ==
[2023-05-31 12:34] VITALS: BP 132/78; PULSE 90; RESP 16; TEMP 36.8; O2SAT 99; BMI 23.1
--- NOTE | 2023-05-31 12:34 | A.OFFPC_ITS ---
Vital Signs 05/31/23 12:34 Height 5 ft 1 in Weight 122 lb 6 oz BMI 23.1 BP 132/78 Blood Pressure Location Lt brachial Respiration 16 Pulse 90 Pulse Source Pulse Oximeter Temp 98.3 F Temp Source Oral Pulse Oximetry (%) 99 Intake Visit Reasons: 2 months anemia, HTN, HLD Intake Note: Patient is here to follow up on hypertension, HLD, and anemia, complains of a sore back today. Allergies oxycodone [From OxyContin] Allergy (Mild, Verified 05/31/23 12:55) Hives Medication List - Last Reconciled 05/31/23 by Kirsitn Waldrop CNP albuterol sulfate 90 mcg/actuation (ProAir HFA) 2 puffs inhalation Q4-6H PRN 1 month amlodipine 2.5 mg PO DAILY blood pressure monitor check bp twice a week and when not feeling well ferrous sulfate (Feosol) 325 mg PO DAILY folic acid 1 mg PO DAILY hydroxychloroquine 200 mg PO DAILY ipratropium-albuterol 20-100 mcg/actuation (Combivent Respimat) 1 puff inhalation QID omeprazole 20 mg PO DAILY pravastatin 40 mg PO DAILY 90 days ropinirole 2 mg (2 x 1 mg) PO TID Tobacco use date assessed: 05/31/23 Fall risk assessment: No Falls in past year Last assessed Fall Risk: 05/31/23 Dental Screening Dental Screen Date: 05/31/23 Did you have a dental visit in the last 12 months?: No Did you have a dental problem in the last 6 months where you did not have access to dental care?: No Was dental information given to patient?: Patient declined HPI HPI Comments History of Present Illness Details 78-year-old female presents for anemia, hypertension, and hyperlipide darlene follow-up She admits to taking her medications as prescribed without adverse reactions She has not gotten her blood work done. She notes she will wait to get her blood work next month when she is due to get blood work done for rheumatology She reports low back pain since the beginning of this month. She describes the pain as soreness. The pain started after she coughed and she felt as if I pulled something in my back. She reports runny nose and nonproductive cough for the past 3 weeks. No headache, fever, chills, sore throat, fatigue, or weakness. No sick contact. She has tried multiple [id number] regimen without improvement. 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 Mesfin Singh, Raiza Ortega, Naga Das and colleagues, with an educational silvestre from [employer]. Review of Systems Const Details: Const Denies chills, Denies fatigue, Denies fever(s), Denies headache(s) and Denies weakness ENT Reports as per HPI Card Denies chest pain, Denies lightheadedness, Denies dyspnea and Denies other (Palpitations) Resp Reports cough, Denies dyspnea, Denies wheezing and Denies other ( shortness of breath) GI Denies abdominal pain, Denies melena, Denies hematochezia, Denies change in bowel habits, Denies dyspepsia and Denies nausea Denies hematuria and Denies dysuria Musc Reports as per HPI Skin/Breast Denies rash, Denies unusual bruising and Denies wounds Neuro Denies abnormal gait, Denies dizziness, Denies headache(s), Denies memory loss, Denies numbness, Denies Sensory deficit (Neuro), Denies tingling and Denies weakness Psych Denies anxiety, Denies depression, Denies memory loss Endo Denies cold intolerance, Denies fatigue, Denies heat intolerance, Denies polydipsia and Denies polyuria Aller/Immun Denies wheezing Physical exam (Primary Care) Vital Signs: Last Vital Signs Temp 98.3 F 05/31/23 12:34 Pulse 90 05/31/23 12:34 Resp 16 05/31/23 12:34 BP 132/78 05/31/23 12:34 Pulse Ox 99 05/31/23 12:34 BMI result Body Mass Index 23.1 Tobacco/Smoking Status: Tobacco use Status Tobacco use date assessed 05/31/23 05/31/23 12:43 Patient Tobacco Use Status Current everyday Tobacco 05/31/23 12:43 Tobacco use type Cigarette 05/31/23 12:43 e-Cigarette/Vaping Use Never Used 05/31/23 12:43 Thrive Assessment: Date of Thrive Assessment Date Thrive assessed 03/30/23 05/31/23 12:43 Const Other: General: no acute distress and well developed Nutritional Appearance: well nourished Orientation/consciousness: patient oriented x3 HENMT Head is normocephalic Bilateral ear canal and TM are normal Nasal turbinates and oropharynx are pink and moist Sinuses are nontender with palpation No auricular or cervical lymphadenopathy Eyes General: appearance normal, both eyes and all related structures Pupils: Equal, round and reactive pupils present EOM: EOMs intact bilaterally Resp Effort & Inspection: normal respiratory effort Auscultation: Wheezing bilateral upper lobes Cardio Rate: regular rate Rhythm: regular rhythm Heart sounds: S1 normal heart sound present, S2 normal heart sound present, no gallops, no murmurs and no rubs GI Palpation (GI): No Abdominal aortic bruit present, Soft to palpation, nontender, No hepatosplenomegaly present and No Rebound tenderness present Auscultation: normal bowel sounds General: Yes no CVA tenderness Back/Spine/Pelvis Back: no CVA tenderness Cervical Spine: cervical ROM normal and No Cervical spine tenderness Thoracic/Lumbar Spine: thoraco-lumbar ROM normal, No pain with thoraco-lumbar ROM, No thoracic spinal tenderness and No lumbar spinal tenderness Extrem General: Yes normal to inspection, No edema and No calf tenderness Skin General: warm and dry. Normal skin color. Normal skin turgor Neuro General: patient oriented x3, gait normal and no focal neuro deficit Cranial nerves: Yes Equal, round and reactive pupils present Cognition (Neuro): normal cognition Gait exam (Neuro): Normal gait present Sensory Exam: No Sensory deficit (Neuro) Psych Appearance: grossly normal Affect: normal affect Attitude: cooperative Thought process: Normal thought process present Assessment and Plan Assessment & Plan (1) Hypertension: Code(s): I10 - Essential (primary) hypertension Qualifiers: Hypertension type: primary hypertension Qualified Code(s): I10 - Essential (primary) hypertension Plan: Blood pressure is 132/78, within goal of less than 140/90 Continue current treatment regimen Low-sodium diet encouraged Follow-up in 3 months or return sooner with symptoms or concerns Verbalized understanding and agreed with treatment plan (2) Hyperlipidemia: Code(s): E78.5 - Hyperlipidemia, unspecified Plan: Patient did not get blood work done as planned. She is advised to get blood work done before next visit Verbalized understanding and agreed with the plan (3) Iron deficiency anemia: Code(s): D50.9 - Iron deficiency anemia, unspecified Plan: As above (4) Cough: Code(s): R05.9 - Cough, unspecified Plan: Nonproductive cough and runny nose for the past 3 weeks Likely viral illness though possibly allergies Bronchitis is also possible Viral illness There is no antibiotic medication for viruses.? They must run their course.? Most average 5-7 days but 7-10 days is not uncommon and up to 14 days is still possible.? A cough is often the last symptom to resolve and this can last for weeks in some cases. Rest Hydrate well -? Drink plenty of fluids.? Especially water. Tylenol or ibuprofen for muscle aches, headache, fever/discomfort Zyrtec and prednisone as prescribed Cannot rule out COVID-19/RSV/Flu infection Nasal swab acquired and will be sent to the lab Return for new or worsening symptoms Verbalized understanding and agreed with treatment plan. (5) Bronchitis: Code(s): J40 - Bronchitis, not specified as acute or chronic Plan: Nonproductive cough x3 weeks Lung sounds wheezing to bilaterally upper lobes Prednisone ordered. Take as prescribed Chest x-ray ordered. Will review results and make changes as needed Verbalized understanding and agreed with treatment plan (6) Back pain: Code(s): M54.9 - Dorsalgia, unspecified Plan: Reports low back pain x3 weeks. Pain started after she coughed Likely muscular pain Prednisone as prescribed Warm/cold compresses and light stretching encouraged Follow-up with worsening or new symptoms Verbalized understanding and agreed with treatment plan Orders: Orders Lipid Panel Today E78.5 - Hyperlipidemia, unspecified XR chest 2V Today R05.9 - Cough, unspecified SARS-CoV2/FLU/RSV Today R05.9 - Cough, unspecified Medications: New cetirizine (Zyrtec) 10 mg PO DAILY 30 tabs 0RF 30 days prednisone 40 mg (2 x 20 mg) PO DAILY 5 days 10 tabs 0RF Coding Level of Care Code Est Pt Level 4 (61500) Diagnoses Primary hypertension I10 Hypertension type: primary hypertension Hyperlipidemia E78.5 Iron deficiency anemia D50.9 Cough R05.9 Bronchitis J40 Back pain M54.9
== END 2023-05-31 13:28 | disposition home or self-care (01) ==
PROVIDERS: PCP Nurse Practitioner Family; Visit Provider Nurse Practitioner Family
DX: I10 Essential (primary) hypertension (principal); E78.5 Hyperlipidemia, unspecified; D50.9 Iron deficiency anemia, unspecified; R05.9 Cough, unspecified; J40 Bronchitis, not specified as acute or chronic; M54.9 Dorsalgia, unspecified
CPT/HCPCS: 99214

== ENCOUNTER 2023-05-31 13:19 | Outpatient (REF) | payer MEDICARE, SELFPAY ==
[2023-06-01 12:47] LABS: Influenza A PCR NEGATIVE (Negative); Influenza B PCR NEGATIVE (Negative); Resp Syncy Virus RNA Qual PCR NEGATIVE (Negative); SARS COV2 PCR INHOUSE POSITIVE (Negative)
== END 2023-05-31 13:20 | disposition home or self-care (01) ==
LOC: HO.LAB 13:19
PROVIDERS: Visit Provider Nurse Practitioner Family
DX: Z11.52 Encounter for screening for COVID-19 (principal); Z20.822 Contact with and (suspected) exposure to COVID-19; R05.9 Cough, unspecified
CPT/HCPCS: 0241U

== ENCOUNTER 2023-06-01 08:35 | Outpatient (REF) | payer MEDICARE, SELFPAY ==
--- NOTE | ~2023-06-01 | XR_ITS ---
EXAMINATION: XR CHEST CLINICAL INFORMATION: Cough unspecified. COMPARISON: CT angiography of the chest and chest radiographs of 03/23/2022. Chest radiographs of 02/04/2022. TECHNIQUE: 2 views of the chest were obtained. FINDINGS: The lungs are hyperinflated. Heart size is within normal limits. Redemonstration of prominence of the bilateral amy. Redemonstration of bilateral central peribronchial thickening. Nodular density overlying the lateral right lung base, anterior aspect of right seventh rib, likely representing nipple shadow and this could be confirmed following placement of nipple markers. Ill-defined opacity with possible spiculated margins overlying the left heart border. CT scan of the chest recommended for further evaluation. XR/XR chest 2V IMPRESSION: 1. Ill-defined opacity with possible spiculated margins overlying the left heart border. CT scan of the chest recommended for further evaluation. 2. Nodular density overlying the lateral right lung base, anterior aspect of right seventh rib, likely representing nipple shadow and this could be confirmed following placement of nipple markers. This study was presented today June 02, 2023 at 10:30 AM for interpretation. [facility] staff will provide results to referring provider at this time.
== END 2023-06-01 08:36 | disposition home or self-care (01) ==
LOC: HO.XRAY 08:35
PROVIDERS: PCP Nurse Practitioner Family; Visit Provider Nurse Practitioner Family
DX: R05.9 Cough, unspecified (principal)
CPT/HCPCS: 71046

== ENCOUNTER 2023-06-11 08:07 | Outpatient (REF) | payer MEDICARE, SELFPAY ==
--- NOTE | ~2023-06-11 | XR_ITS ---
EXAMINATION: XR CHEST 2 VIEWS CLINICAL INFORMATION: Bronchitis. COMPARISON: Chest radiographs dated 06/01/2023; CTA chest dated 03/23/2022. TECHNIQUE: Frontal and lateral views of the chest were obtained. FINDINGS: The heart, great vessels, pulmonary vasculature and mediastinum are normal. The lungs show no focal infiltrate, effusion or pneumothorax. There is stable left base scar/subsegmental atelectasis. There is biapical pleural thickening. There are atherosclerotic calcifications of the aortic knob. There are stable moderate T6 and T7 anterior wedge compression fractures. There is no acute osseous abnormality. XR/XR chest 2V IMPRESSION: No active cardiopulmonary disease. There is stable mild left base scar/subsegmental atelectasis.
[2023-06-11 08:21] LABS: MANUAL DIFF FLAG NO
[2023-06-11 09:00] LABS: Basophils Percent Auto 0.4 % (0-2); Eosinophils Absolute Auto 0.2 X10*3/uL (0.0-0.4); Eosinophils Percent Auto 2.8 % (0-4); Hematocrit 34.9 % (37.0-47.0); Hemoglobin 10.9 g/dl (12.0-16.0); Imm Gran Abs Auto 0.06 X10*3/uL (0.00-0.03); Imm Gran Pct Auto 0.7 % (0.0-0.4); Lymphocytes Absolute Auto 1.4 X10*3/uL (1.2-4.9); Lymphocytes Percent Auto 16.8 % (20-40); Mean Corpuscular HGB Conc 31.2 g/dl (31.0-35.0); Mean Corpuscular Hemoglobin 26.6 pg (27.0-33.0); Mean Corpuscular Volume 85.1 fL (80.0-98.0); Mean Platelet Volume 9.6 fL (9.4-12.3); Monocytes Absolute Auto 1.2 X10*3/uL (0.1-1.2); Monocytes Percent Auto 14.3 % (2-11); Neutrophils Absolute Auto 5.3 x10*3/uL (2.0-8.3); Platelet Count 450 X10*3/uL (160-400); Red Cell Distribution Width 16.9 % (11.0-16.0); White Blood Count 8.2 X10*3/uL (4.8-10.8)
[2023-06-11 09:39] LABS: Alanine Aminotransferase 8 U/L (0-31); Albumin Level 3.9 g/dL (3.5-5.0); Alkaline Phosphatase 51 U/L (39-117); Anion Gap 13 (12-20); Aspartate Amino Transferase 12 U/L (5-31); Bilirubin Total 0.5 mg/dL (0.0-1.0); Blood Urea Nitrogen 19 mg/dL (9-16); C Reactive Protein 3.04 mg/dL (< or = 0.50); Calcium 9.3 mg/dL (8.4-10.2); Carbon Dioxide 25 mmol/L (22-29); Chloride 104 mmol/L (96-108); Estimated Glomerular Filt Rate > 60; Glucose Random 91 mg/dL (60-115); Potassium 4.5 mmol/L (3.3-5.1); Sodium 137 mmol/L (135-145); Total Protein 7.3 g/dL (6.5-8.0)
[2023-06-11 09:40] LABS: Erythrocyte Sedimentation Rate 46 MM/HR (0-20)
== END 2023-06-11 08:08 | disposition home or self-care (01) ==
LOC: HO.XRAY 08:07
PROVIDERS: PCP Nurse Practitioner Family; Visit Provider Student in an Organized Health Care Education/Training Program
DX: J40 Bronchitis, not specified as acute or chronic (principal); Z79.631 Long term (current) use of antimetabolite agent
CPT/HCPCS: 36415; 71046; 80053; 85025; 85652; 86140

== ENCOUNTER 2023-09-09 20:27 | Emergency (ER) | payer MEDICARE, SELFPAY ==
--- NOTE | ~2023-09-09 | XR_ITS ---
EXAMINATION: XR CHEST CLINICAL INFORMATION: Shortness of breath COMPARISON: Previous chest x-ray 06/11/2023 TECHNIQUE: Frontal view of the chest was obtained. FINDINGS: The cardiac and mediastinal contours are stable. There is a 1 cm nodular density that projects over the left lung base. This may represent a nipple shadow. Lungs are otherwise clear. No pleural effusion or pneumothorax. Old bilateral rib fractures. Degenerative changes of the spine. XR/XR chest 1V IMPRESSION: 1 cm nodular density at the left lung base, question representing nipple shadow. Follow-up chest x-ray with nipple markers recommended.
--- NOTE | ~2023-09-09 | US_ITS ---
EXAMINATION: US VENOUS ULTRASOUND WITH DOPPLER LOWER EXTREMITY, LEFT CLINICAL INFORMATION: Left leg pain and swelling COMPARISON: None available. TECHNIQUE: Ultrasound of the deep veins is performed from the hip to the calf with compression sonography and color and pulse Doppler assessment. Spectral analysis with color-flow imaging is performed. FINDINGS: There is normal venous compression and respiratory variation and augmented flow. The visualized common femoral vein, superficial femoral vein, profunda femoral vein, popliteal vein, and the trifurcation region shows no evidence of deep venous thrombosis. There is no significant popliteal fossa cyst. US/US venous duplex LE LT IMPRESSION: No DVT demonstrated in the left lower extremity.
--- NOTE | ~2023-09-09 | XR_ITS ---
EXAMINATION: XR KNEE, LEFT CLINICAL INFORMATION: Pain COMPARISON: None available. TECHNIQUE: Two views of the left knee. FINDINGS: Osseous alignment is anatomic. Minimal joint space narrowing is suspected. No acute fracture is seen. Trace joint effusion. Vascular calcification posterior to the knee. XR/XR knee LT 2V IMPRESSION: No acute osseous findings. Trace joint effusion.
[2023-09-09 20:40] VITALS: BP 187/99; PULSE 114; RESP 22; TEMP 37; O2SAT 99; BMI 25.5
--- NOTE | 2023-09-09 20:43 | ED_ITS ---
HPI - Extremity Problem General Chief complaint: Extremity Injury, Lower Stated complaint: left leg swelling/pain Time Seen by Provider: 09/10/23 04:51 Source: patient Mode of arrival: ambulatory Limitations: no limitations History of Present Illness HPI Narrative: 78-year-old female walked into the emergency department for evaluation of left leg pain that started since yesterday, patient denies any trauma or injury to her left knee or leg, no recent travel or prolonged immobilization, no history of DVT, unable to walk steady because of the pain in the left leg. Pain is mostly located on the lateral aspect of the left leg. Related Data Home Medications ?Medication ?Instructions ?Recorded ?Confirmed amlodipine 2.5 mg tablet 2.5 mg PO DAILY 02/05/22 05/31/23 ferrous sulfate 325 mg (65 mg 325 mg PO DAILY 02/18/22 05/31/23 iron) tablet (Feosol) ipratropium 20 mcg-albuterol 100 1 puff inhalation QID 12/29/22 05/31/23 mcg/actuation mist for inhalation (Combivent Respimat) Previous Rx's ?Medication ?Instructions ?Recorded albuterol sulfate 90 mcg/actuation 2 puff inhalation Q4-6H PRN 02/16/22 aerosol inhaler (ProAir HFA) shortness of breath or wheezing 1 month #8.5 grams blood pressure monitor #1 ea 04/08/22 folic acid 1 mg tablet 1 mg PO DAILY #90 tabs 04/28/23 pravastatin 40 mg tablet 40 mg PO DAILY 90 days #90 tabs 04/28/23 hydroxychloroquine 200 mg tablet 200 mg PO DAILY #90 tabs 05/18/23 cetirizine 10 mg tablet (Zyrtec) 10 mg PO DAILY 30 days #30 tabs 05/31/23 prednisone 20 mg tablet 40 mg (2 x 20 mg) PO DAILY 5 days 05/31/23 #10 tabs ropinirole 1 mg tablet 2 mg (2 x 1 mg) PO TID #90 tabs 06/04/23 omeprazole 20 mg capsule,delayed 20 mg PO DAILY #30 caps 07/22/23 release Allergies Allergy/AdvReac Type Severity Reaction Status Date / Time oxycodone [From OxyContin] Allergy Mild Hives Verified 09/09/23 20:45 Review of Systems 2 Review of Systems: All other systems are reviewed and are negative Constitutional: Reports as per HPI and Reports no additional constitutional complaints Eyes: Reports as per HPI and Reports no additional eye complaints Reports system reviewed and no additional complaints, except as documented Cardiovascular: Reports as per HPI and Reports no additional cardiovascular complaints Respiratory: Reports as per HPI and Reports no additional respiratory complaints Gastrointestinal: Reports as per HPI and Reports no additional gastrointestinal complaints Genitourinary: Reports no additional female genitourinary complaints Musculoskeletal: Reports no additional musculoskeletal complaints Skin/Breast: Reports system reviewed and no additional complaints, except as docu Psychiatric: Reports no additional psychiatric complaints Endocrine: Reports no additional endocrine complaints Hematologic/Lymphatic: Reports no additional hematologic/lymphatic complaints Allergic/Immunologic: Reports no additional allergic/immunologic complaints Reports system reviewed and no additional complaints, except as documented and Reports Abnormal speech present [facility] Past Medical History Medical History 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 Blood pressure elevated. Heart rate normal. Respiratory rate normal. Temperature normal. Oxygen saturation normal. Appearance: Alert. Oriented X3. No acute distress. Head: Normal external exam. Normocephalic. Atraumatic. No Alcantar signs noted. No raccoon eyes noted Eyes: PERRLA. EOMI. Conjunctiva and sclera normal. Eyelids normal. ENT: TM's Normal. Pharynx normal. Uvula midline. Moist mucous membranes. No trismus noted. No drooling noted. No muffled voice noted. Neck: Normal inspection. Neck supple. FROM. No adenopathy. Thyroid Normal. No meningeal signs. No neck mass noted. CVS: Normal heart rate and rhythm. Heart sound normal. No murmurs noted. Pulses normal throughout. Respiratory: No respiratory distress. Painless inspiration. Breath sounds normal. No wheezes/rales/rhonchi noted. Chest nontender. No accessory muscle usage noted or decreased air movement noted. Abdomen: Soft and nontender. Bowel sounds normal in all 4 quadrants. No distention noted. No organomegaly noted. No visible injury noted. Back: No CVA tenderness. Full range of motion noted. Skin: Skin warm and dry. Normal skin color. Normal skin turgor. No rashes/lesions/lacerations noted. Extremities: Left lower extremity exam: Neurovascularly intact, point of tenderness to the lateral aspect of left knee and in the calf area, no swelling or tenderness is appreciated at the time of the exam. Neuro: Oriented X 3. Cranial nerve exam: II-XII are grossly intact No motor deficit. No sensory deficit. Reflexes normal. Course Course Course Narrative: This is a rapid medical exam completed by [facility] MEDICAL REVIEW COORDINATOR: Additional HPI, ROS, PE not included below will be deferred to primary provider. Left lower extremity swelling and pain starting today. Denies any trauma, recent travel, or prolonged downtime. Is not on any anticoagulant Reevaluation(s) Reevaluation #1: Patient still in pain, leukocytosis no evidence of cellulitis of left leg, ultrasound is negative for DVT, x-ray showing no acute osseous abnormality, patient is an active smoker with history of COPD having difficulty breathing will give the patient bronchodilator and 1 dose of prednisone. Patient agreed to have physical therapy evaluation and rehab placement will start the patient on physician observation and placement. Time: 06:22 Reevaluation #2: Patient refusing rehab. Would like to go home. Vital signs stable. Case management try to convince patient to go however she does not want to. She has been walking around the department without difficulty. No indication for antibiotics. Patient advised to follow-up with PCP. Medications Administered Discontinued Medications Generic Name Dose Route Start Last Admin Trade Name Freq PRN Reason Stop Dose Admin Albuterol/Ipratropium 3 ml 09/10/23 07:12 09/10/23 07:17 Albuterol/Iprat 2.5/0.5mg 3 Ml Ampul.Neb INHALE 09/10/23 07:13 3 ml ONCE ONE Administration Ibuprofen 800 mg 09/10/23 04:56 09/10/23 06:15 Ibuprofen 800 Mg Tablet PO 09/10/23 04:57 800 mg ONCE ONE Administration Prednisone 40 mg 09/10/23 06:21 09/10/23 08:29 Prednisone 20 Mg Tablet PO 09/10/23 06:22 40 mg ONCE ONE Administration Medical Decision Making Differential Diagnosis Differential Diagnoses: The differential diagnosis associated with the presentation includes (COPD exacerbation, pneumonia, pneumothorax, electrolyte abnormality, rhabdomyolysis, LLE cellulitis, DVT, LLE fracture.) Admission/Observation Consideration of admission/observation: Escalation of care including admission/observation considered Lab Data MDM Lab Attestation statement: I reviewed the patient's lab results. 09/10/23 05:56 09/10/23 05:56 Labs: Lab Results 09/10/23 09/10/23 Range/Units 05:56 09:08 WBC 14.3 H (4.8-10.8) X10*3/uL RBC 3.42 L (4.20-5.50) X10*6/uL Hgb 8.1 L D (12.0-16.0) g/dl Hct 26.0 L D (37.0-47.0) % MCV 76.0 L (80.0-98.0) fL MCH 23.7 L (27.0-33.0) pg MCHC 31.2 (31.0-35.0) g/dl RDW 17.2 H (11.0-16.0) % Plt Count 444 H (160-400) X10*3/uL MPV 9.0 L (9.4-12.3) fL Immature Gran % (Auto) 0.5 H (0.0-0.4) % Neut % (Auto) 83.6 H (45-73) % Lymph % (Auto) 6.1 L (20-40) % Lucas % (Auto) 9.7 (2-11) % Eos % (Auto) 0.0 (0-4) % Baso % (Auto) 0.1 (0-2) % Lymph # (Auto) 0.9 L (1.2-4.9) X10*3/uL Lucas # (Auto) 1.4 H (0.1-1.2) X10*3/uL Eos # (Auto) 0.0 (0.0-0.4) X10*3/uL Baso # (Auto) 0.0 (0.0-0.2) X10*3/uL Abs Immat Gran (auto) 0.07 H (0.00-0.03) X10*3/uL Absolute Neuts (auto) 11.9 H (2.0-8.3) x10*3/uL Absolute Nucleated RBC 0.000 (0.0-0.012) X10*3/uL Nucleated RBC % (auto) 0.0 (0.0-0.2) /100WBC Sodium 136 (135-145) mmol/L Potassium 3.8 (3.3-5.1) mmol/L Chloride 104 (96-108) mmol/L Carbon Dioxide 21 L (22-29) mmol/L Anion Gap 15 (12-20) BUN 14 (9-16) mg/dL Creatinine 0.78 (0.5-1.4) mg/dL Estim Creat Clear Calc 50.7 Estimated GFR > 60 Random Glucose 114 (60-115) mg/dL Calcium 9.0 (8.4-10.2) mg/dL Total Creatine Kinase 129 (26-140) U/L COVID-19 (SHIMA) Negative (Negative) COVID-19 Clin Com See Note Independent Interpretation I performed an independent interpretation of an: Plain X-Ray (Left knee x-ray:No acute osseous findings. Trace joint effusion. ) and Ultrasound (LLE: No DVT) Radiology Impression Discussion of test interpretation with radiology: I have reviewed the radiologist's reading. Chronic Conditions Patient?s care impacted by: Other (COPD) Discharge Plan Discharge Clinical Impression: COPD exacerbation, Leukocytosis, Leg pain, left Patient Disposition: Home, Self-Care Instructions: Chronic Bronchitis (DC), Leukocytosis (ED), Leg Pain (ED) Additional Instructions: Take your medications as prescribed. If you were prescribed antibiotics today, it is important that you take your medication to their entirety, do not skip any doses, do not finish them early. Follow-up with your primary care provider this week. Return to the emergency department with new or worsening symptoms. Such as fevers, chills, chest pain, shortness of breath, nausea, vomiting, dizziness, headache, vision changes, lethargy In case of emergency call 911 Prescriptions: No Action albuterol sulfate [ProAir HFA] 90 mcg/actuation HFA aerosol inhaler 2 puff inhalation Q4-6H PRN (Reason: shortness of breath or wheezing) 30 Days Qty: 8.5 2RF folic acid 1 mg tablet 1 mg PO DAILY Qty: 90 3RF pravastatin 40 mg tablet 40 mg PO DAILY 90 Days Qty: 90 1RF hydroxychloroquine 200 mg tablet 200 mg PO DAILY Qty: 90 0RF ropinirole 1 mg tablet 2 mg PO TID Qty: 90 1RF omeprazole 20 mg capsule,delayed release(DR/EC) 20 mg PO DAILY Qty: 30 0RF amlodipine 2.5 mg tablet 2.5 mg PO DAILY (DME) blood pressure monitor Kit See Rx Instructions .Route Qty: 1 0RF Rx Instructions: check bp twice a week and when not feeling well prednisone 20 mg tablet 40 mg PO DAILY 5 Days Qty: 10 0RF cetirizine [Zyrtec] 10 mg tablet 10 mg PO DAILY 30 Days Qty: 30 0RF ferrous sulfate [Feosol] 325 mg (65 mg iron) tablet 325 mg PO DAILY Combivent Respimat 20-100 mcg/actuation mist 1 puff inhalation QID Referrals: Kirstin Waldrop, VETERINARY SURGERY TECHNICIAN [Primary Care Provider] - 2 days Print Language: Pashto
[2023-09-10] VITALS (8 sets, daily range): BP systolic 128–162; BP diastolic 66–84; PULSE 79–113; RESP 16–22; TEMP 36.9–37.2; O2SAT 95–98
--- NOTE | 2023-09-10 04:48 | MHC.EDTECH ---
Patient ambulated to the bathroom with a steady gait with walker,hourly rounds and vitals completed
[2023-09-10 06:07] LABS: Basophils Percent Auto 0.1 % (0-2); Hemoglobin 8.1 g/dl (12.0-16.0); Imm Gran Abs Auto 0.07 X10*3/uL (0.00-0.03); Imm Gran Pct Auto 0.5 % (0.0-0.4); Lymphocytes Absolute Auto 0.9 X10*3/uL (1.2-4.9); Lymphocytes Percent Auto 6.1 % (20-40); MANUAL DIFF FLAG NO; Mean Corpuscular HGB Conc 31.2 g/dl (31.0-35.0); Mean Corpuscular Hemoglobin 23.7 pg (27.0-33.0); Monocytes Absolute Auto 1.4 X10*3/uL (0.1-1.2); Monocytes Percent Auto 9.7 % (2-11); Neutrophils Absolute Auto 11.9 x10*3/uL (2.0-8.3); Neutrophils Percent Auto 83.6 % (45-73); Platelet Count 444 X10*3/uL (160-400); Red Blood Count 3.42 X10*6/uL (4.20-5.50); Red Cell Distribution Width 17.2 % (11.0-16.0); White Blood Count 14.3 X10*3/uL (4.8-10.8)
[2023-09-10] MEDS: Ibuprofen 800 MG TABLET PO (06:15)
[2023-09-10 06:22] LABS: Anion Gap 15 (12-20); Blood Urea Nitrogen 14 mg/dL (9-16); Carbon Dioxide 21 mmol/L (22-29); Chloride 104 mmol/L (96-108); Creatinine Clr Calc Pharmacy 50.7; Estimated Glomerular Filt Rate > 60; Glucose Random 114 mg/dL (60-115); Potassium 3.8 mmol/L (3.3-5.1); Sodium 136 mmol/L (135-145)
[2023-09-10] MEDS: Albuterol/Iprat 2.5/0.5MG 3 ML AMPUL.NEB INHALE (07:17)
--- NOTE | 2023-09-10 07:19 | PC.NURSE ---
physical therapy met with patient, xray obtained. respiratory at bedside w/ updraft.
[2023-09-10] MEDS: predniSONE 20 MG TABLET 40 MG PO (08:29)
--- NOTE | 2023-09-10 08:57 | MHC.CM.ED ---
Addendum entered by Natacha Kruger 09/10/23 11:11: [facility], [facility] is able to offer a bed and is in the process of obtaining insurance auth. Copy of HCP obtained from [facility]. Original Note: Received case management consult overnight. Patient came to the ER due to leg pain/swelling. Work up essentially negative. Physical therapy eval completed. Short term rehab is recommended. Met with patient in regards to discharge planning. Patient lives alone, ambulates independently at baseline and had no services prior to coming to the ER. PCP verified as Kirstin Waldrop. Copy of HCP requested from [facility]. List of nursing home facilities contracted with patient's insurance provided. Choices: 1) [facility], [facility] 2) [facility]. Referral made via [facility]. Continue to monitor for d/c needs.
[2023-09-10 09:29] LABS: COVID-19 Test Negative (Negative); IDNOW Serial# 08D9AD1C
--- NOTE | 2023-09-10 11:28 | MHC.CM.ED ---
Received notification from Nicky VARGAS that patient is now declining STR. Met with patient. 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 Denise KAUFFMAN made aware. Continue to monitor for d/c needs.
--- NOTE | 2023-09-10 16:30 | MHC.CM.ED ---
As noted, patient is refusing STR and desires discharge home. States will drive herself, as she drove here. Pt is not homebound, so VNA services cannot be arranged. CM called [facility] and spoke with Trixie. Reviewed patient assessment, PT recommendations and d/c plan. Per Trixie, patient is not home bound, so she cannot have home PT. Recommends that patient follow up with her PCP and consider outpatient referral from PCP. Colleen jaime.
--- NOTE | 2023-09-10 16:37 | PC.NURSE ---
late entry: patient was seen and dispoed by PT/CM who recommended short term rehab. patient has been ambulating w/ walker to and from bathroom throughout the whole shift with steady gait. reports improvement in lower extremity pain, states she feels well enough to go home. requesting to leave. provider made aware of this and patient is discharged.
== END 2023-09-10 16:39 | disposition home or self-care (01) ==
PROVIDERS: Physician Assistant; Emergency Provider Emergency Medicine; PCP Nurse Practitioner Family
DX: M79.605 Pain in left leg (principal); J44.1 Chronic obstructive pulmonary disease with (acute) exacerbation; D72.829 Elevated white blood cell count, unspecified; I10 Essential (primary) hypertension; Z11.52 Encounter for screening for COVID-19
CPT/HCPCS: 36415; 71045; 73560; 80048; 82550; 85025; 87635; 93971; 94640; 97161; 99284

== ENCOUNTER 2023-10-25 08:06 | Emergency (ER) | payer MEDICARE, SELFPAY ==
[2023-10-25] VITALS (8 sets, daily range): BP systolic 141–169; BP diastolic 72–87; PULSE 89–97; RESP 16–26; TEMP 36.8–36.9; O2SAT 95–98; BMI 25.5
--- NOTE | ~2023-10-25 | US_ITS ---
EXAMINATION: US VENOUS ULTRASOUND WITH DOPPLER LOWER EXTREMITY, RIGHT CLINICAL INFORMATION: Right lower extremity edema and pain COMPARISON: None available. TECHNIQUE: Ultrasound of the deep veins is performed from the hip to the calf with compression sonography and color and pulse Doppler assessment. Spectral analysis with color-flow imaging is performed. FINDINGS: There is normal venous compression and respiratory variation and augmented flow. The visualized common femoral vein, superficial femoral vein, profunda femoral vein, popliteal vein, and the trifurcation region shows no evidence of deep venous thrombosis. There is a complex Bray's cyst measuring 5.4 x 1.9 x 3.4 cm. Normal-appearing right groin lymph node is present. If the patient's symptoms persist, followup ultrasound in 5 days 7 days might be of value to exclude proximal propagation from a non-visualized calf vein. US/US venous duplex LE RT IMPRESSION: No DVT demonstrated in the right lower extremity.
--- NOTE | 2023-10-25 08:31 | ED_ITS ---
HPI - Extremity Problem General Chief complaint: Extremity Injury, Lower Stated complaint: r foot swelling Time Seen by Provider: 10/25/23 08:28 Source: patient Mode of arrival: ambulatory Limitations: no limitations History of Present Illness ED Provider: Casey Sy PA-C HPI Narrative: 78-year-old female with a history COPD, active smoker, chronic cough, rheumatoid arthritis, chronic iron-deficiency anemia due to diffuse small bowel telangiectasias, hyperparathyroidism status post parathyroidectomy, HTN, restless leg syndrome who presents to the ER for evaluation of worsening swelling of the right ankle and right lower extremity for the last 1 week. She denies any injury or trauma. She reports it is painful to move the right ankle due to swelling. She denies any redness to the area, no fever or chills. She has no chest pain or shortness of breath. No history of blood clot. No history of recent travel. MD Complaint: extremity pain and extremity swelling Onset (ago): week(s) (1) Pain Consistency: constant Location: right and lower extremity Quality: aching Radiation: proximal Relieving factors: rest Exacerbating factors: weight bearing, walking and palpation Associated symptoms: denies other symptoms Related Data Home Medications ?Medication ?Instructions ?Recorded ?Confirmed amlodipine 2.5 mg tablet 2.5 mg PO DAILY 02/05/22 05/31/23 ferrous sulfate 325 mg (65 mg 325 mg PO DAILY 02/18/22 05/31/23 iron) tablet (Feosol) ipratropium 20 mcg-albuterol 100 1 puff inhalation QID 12/29/22 05/31/23 mcg/actuation mist for inhalation (Combivent Respimat) Previous Rx's ?Medication ?Instructions ?Recorded albuterol sulfate 90 mcg/actuation 2 puff inhalation Q4-6H PRN 02/16/22 aerosol inhaler (ProAir HFA) shortness of breath or wheezing 1 month #8.5 grams blood pressure monitor #1 ea 04/08/22 folic acid 1 mg tablet 1 mg PO DAILY #90 tabs 04/28/23 pravastatin 40 mg tablet 40 mg PO DAILY 90 days #90 tabs 04/28/23 hydroxychloroquine 200 mg tablet 200 mg PO DAILY #90 tabs 05/18/23 cetirizine 10 mg tablet (Zyrtec) 10 mg PO DAILY 30 days #30 tabs 05/31/23 prednisone 20 mg tablet 40 mg (2 x 20 mg) PO DAILY 5 days 05/31/23 #10 tabs ropinirole 1 mg tablet 2 mg (2 x 1 mg) PO TID #90 tabs 06/04/23 omeprazole 20 mg capsule,delayed 20 mg PO DAILY #30 caps 07/22/23 release ferrous sulfate 325 mg (65 mg 325 mg PO BID #60 tabs 10/25/23 iron) tablet (iron) Allergies Allergy/AdvReac Type Severity Reaction Status Date / Time oxycodone [From OxyContin] Allergy Mild Hives Verified 10/25/23 08:35 Review of Systems 2 Review of Systems: Yes all other systems are reviewed and are negative [facility] Past Medical History Medical History 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 Social History Social History Household Members: None Housing: Apartment Alcohol intake: never Comment: pain related to RLS, medicated with requip Patient Tobacco Use Status: Current everyday Tobacco user Tobacco use type: Cigarette Cigarettes Per Day: 4 Years Smoked: 55 e-Cigarette/Vaping Use: Never Used Second Hand Smoke Exposure: Yes Advance Directives: Yes Advance Directives on File: Yes Advance Directives Date on File: 09/10/23 service: No Current occupational status: retired 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 Cognitive needs: No Hearing needs: No Vision needs: Yes Physical Exam 2 Vital Signs: Vital Signs: Last Vital Signs Temp 98.4 F 10/25/23 12:39 Pulse 89 10/25/23 12:39 Resp 24 H 10/25/23 12:39 BP 163/73 H 10/25/23 12:39 Pulse Ox 95 10/25/23 11:51 O2 Del Method Room Air 10/25/23 11:51 BMI result Body Mass Index 25.5 Appearance: Alert. Oriented X3. No acute distress. Head: normocephalic, atraumatic. Eyes: Pupils equal, round and reactive to light. ENT: Pharynx normal. No tonsillar swelling or exudate. Neck: Normal inspection. Neck supple. CVS: Normal heart rate and rhythm. Pulses normal. Respiratory: No respiratory distress. Breath sounds course and wheezy Abdomen: Soft and nontender. +BS x4 Skin: Skin warm and dry. Normal skin color. Normal skin turgor. No rashes. Extremities: 3+ lower extremity edema of the right lower leg, ankle and foot. warm and well perfused w/ 1+ DP/PD pulses. no erythema or warmth. no LE edema in the left LE. Neuro/psych: Oriented X 3. No motor deficit. No sensory deficit. CN II-XII intact. Normal speech and cognition. Course Reevaluation(s) Reevaluation #1: Received critical result from the lab, patient has a hemoglobin of 6.7. Prior to this her hemoglobin was 8.1 in September, prior to that in June it was 10.9. She has a history of small bowel telangiectasias. She denies any melanotic stools or bloody stools. She has noticed more shortness of breath with exertion and generalized fatigue lately. No chest pain or dizziness. Patient was consented for blood transfusion and 1 unit of PRBCs has been ordered. Time: 09:00 Medical Decision Making Medical Decision Making MDM Narrative: 78-year-old female with a history COPD, active smoker, chronic cough, rheumatoid arthritis, chronic iron-deficiency anemia due to diffuse small bowel telangiectasias, hyperparathyroidism status post parathyroidectomy, HTN, restless leg syndrome who presents to the ER for evaluation of worsening swelling of the right ankle and right lower extremity for the last 1 week. Basic labs were ordered which reveal acute on chronic anemia. Iron studies added and reveal patient is very iron deficient. Rectal exam revealed heme- negative, light brown stool. No evidence of active GI bleeding although she does have a history of telangiectasias in her intestines. Thankfully her venous ultrasound does not show any evidence of DVT and she has a complicated Bray's cyst which is the cause of her right lower extremity pain and swelling. Placed an Edin wrap for compression and support. Patient consented for blood transfusion. Her hemoglobin is 6.7 and she has symptoms of fatigue, dyspnea on exertion. She is in agreement to blood transfusion today. Given there is no active blood loss, will plan to transfuse the patient 1 unit of blood and discharge home on or iron supplements, outpatient follow-up with Hematology and GI. Differential Diagnosis Differential Diagnoses: The differential diagnosis associated with the presentation includes DVT, arterial disease, peripheral vascular disease, CHF, ruptured bakers cyst, cellulitis Admission/Observation Consideration of admission/observation: Escalation of care including admission/observation considered Lab Data MDM Lab Attestation statement: I reviewed the patient's lab results. Worsening microcytic anemia, thrombocytosis, normal BNP 10/25/23 08:49 10/25/23 08:49 Labs: Lab Results 10/25/23 10/25/23 10/25/23 Range/Units 08:49 08:56 09:24 WBC 6.7 (4.8-10.8) X10*3/uL RBC 3.19 L (4.20-5.50) X10*6/uL Hgb 6.7 L* (12.0-16.0) g/dl Hct 22.6 L (37.0-47.0) % MCV 70.8 L (80.0-98.0) fL MCH 21.0 L (27.0-33.0) pg MCHC 29.6 L (31.0-35.0) g/dl RDW 16.8 H (11.0-16.0) % Plt Count 521 H (160-400) X10*3/uL MPV 8.7 L (9.4-12.3) fL Immature Gran % (Auto) 0.6 H (0.0-0.4) % Neut % (Auto) 68.4 (45-73) % Lymph % (Auto) 15.6 L (20-40) % Ferry % (Auto) 13.7 H (2-11) % Eos % (Auto) 1.3 (0-4) % Baso % (Auto) 0.4 (0-2) % Lymph # (Auto) 1.1 L (1.2-4.9) X10*3/uL Ferry # (Auto) 0.9 (0.1-1.2) X10*3/uL Eos # (Auto) 0.1 (0.0-0.4) X10*3/uL Baso # (Auto) 0.0 (0.0-0.2) X10*3/uL Abs Immat Gran (auto) 0.04 H (0.00-0.03) X10*3/uL Absolute Neuts (auto) 4.6 (2.0-8.3) x10*3/uL Absolute Nucleated RBC 0.000 (0.0-0.012) X10*3/uL Nucleated RBC % (auto) 0.0 (0.0-0.2) /100WBC Absolute Retic 0.051 (0.026-0.095) X10*6/uL Percent Retic 1.6 (0.5-1.8) % Immature Retic Fraction 15.0 (3.0-15.9) % Retic Hgb Equivalent 17.0 L (30.0-35.0) pg Hold Purple Top SEE NOTE Sodium 141 (135-145) mmol/L Potassium 3.9 (3.3-5.1) mmol/L Chloride 109 H (96-108) mmol/L Carbon Dioxide 22 (22-29) mmol/L Anion Gap 14 (12-20) BUN 9 (9-16) mg/dL Creatinine 0.65 (0.5-1.4) mg/dL Estim Creat Clear Calc 60.8 Estimated GFR > 60 Random Glucose 98 (60-115) mg/dL Calcium 8.3 L D (8.4-10.2) mg/dL Magnesium 1.9 (1.6-2.6) mg/dL Iron < 7 L (30-160) mcg/dL TIBC 354 (228-428) mcg/dL % Saturation 2 L (15-50) % Unsat Iron Binding 347 ug/dL Total Bilirubin 0.4 (0.0-1.0) mg/dL Direct Bilirubin 0.2 (0.0-0.5) mg/dL AST 15 (5-31) U/L ALT 9 (0-31) U/L Alkaline Phosphatase 53 (39-117) U/L B-Natriuretic Peptide 98 (<100) pg/mL Total Protein 6.8 (6.5-8.0) g/dL Albumin 3.7 (3.5-5.0) g/dL Stool Occult Blood (NEGATIVE) Blood Type A Positive Antibody Screen POSITIVE Antibody Identification Inconclusive Crossmatch (AHG) See Detail Blood Bank Comment Technical 10/25/23 Range/Units 10:09 WBC (4.8-10.8) X10*3/uL RBC (4.20-5.50) X10*6/uL Hgb (12.0-16.0) g/dl Hct (37.0-47.0) % MCV (80.0-98.0) fL MCH (27.0-33.0) pg MCHC (31.0-35.0) g/dl RDW (11.0-16.0) % Plt Count (160-400) X10*3/uL MPV (9.4-12.3) fL Immature Gran % (Auto) (0.0-0.4) % Neut % (Auto) (45-73) % Lymph % (Auto) (20-40) % Ferry % (Auto) (2-11) % Eos % (Auto) (0-4) % Baso % (Auto) (0-2) % Lymph # (Auto) (1.2-4.9) X10*3/uL Ferry # (Auto) (0.1-1.2) X10*3/uL Eos # (Auto) (0.0-0.4) X10*3/uL Baso # (Auto) (0.0-0.2) X10*3/uL Abs Immat Gran (auto) (0.00-0.03) X10*3/uL Absolute Neuts (auto) (2.0-8.3) x10*3/uL Absolute Nucleated RBC (0.0-0.012) X10*3/uL Nucleated RBC % (auto) (0.0-0.2) /100WBC Absolute Retic (0.026-0.095) X10*6/uL Percent Retic (0.5-1.8) % Immature Retic Fraction (3.0-15.9) % Retic Hgb Equivalent (30.0-35.0) pg Hold Purple Top Sodium (135-145) mmol/L Potassium (3.3-5.1) mmol/L Chloride (96-108) mmol/L Carbon Dioxide (22-29) mmol/L Anion Gap (12-20) BUN (9-16) mg/dL Creatinine (0.5-1.4) mg/dL Estim Creat Clear Calc Estimated GFR Random Glucose (60-115) mg/dL Calcium (8.4-10.2) mg/dL Magnesium (1.6-2.6) mg/dL Iron (30-160) mcg/dL TIBC (228-428) mcg/dL % Saturation (15-50) % Unsat Iron Binding ug/dL Total Bilirubin (0.0-1.0) mg/dL Direct Bilirubin (0.0-0.5) mg/dL AST (5-31) U/L ALT (0-31) U/L Alkaline Phosphatase (39-117) U/L B-Natriuretic Peptide (<100) pg/mL Total Protein (6.5-8.0) g/dL Albumin (3.5-5.0) g/dL Stool Occult Blood NEGATIVE (NEGATIVE) Blood Type Antibody Screen Antibody Identification Crossmatch ([facility]) Blood Bank Comment Independent Interpretation I performed an independent interpretation of an: Ultrasound Interpretation: no blood clot, large cyst Radiology Impression Discussion of test interpretation with radiology: I have reviewed the radiologist's reading. Radiologist Impression: EXAMINATION: US VENOUS ULTRASOUND WITH DOPPLER LOWER EXTREMITY, RIGHT CLINICAL INFORMATION: Right lower extremity edema and pain COMPARISON: None available. TECHNIQUE: Ultrasound of the deep veins is performed from the hip to the calf with compression sonography and color and pulse Doppler assessment. Spectral analysis with color-flow imaging is performed. FINDINGS: There is normal venous compression and respiratory variation and augmented flow. The visualized common femoral vein, superficial femoral vein, profunda femoral vein, popliteal vein, and the trifurcation region shows no evidence of deep venous thrombosis. There is a complex Bray's cyst measuring 5.4 x 1.9 x 3.4 cm. Normal-appearing right groin lymph node is present. If the patient's symptoms persist, followup ultrasound in 5 days 7 days might be of value to exclude proximal propagation from a non-visualized calf vein. US/US venous duplex LE RT IMPRESSION: No DVT demonstrated in the right lower extremity. External Record Review External record reviewed: Inpatient record, Outpatient record, Prior outpatient labs and Prior outpatient radiology Prescription Management I considered prescription management with: Pain Medication and Other (diuretic) Chronic Conditions Patient?s care impacted by: Other (COPD) Critical Care Time Critical Care Time Critical Care Time: Yes Total Critical Care Time: 32 Attestation: I have personally provided critical care time exclusive of time spent on separately billable procedures. Time includes review of lab data, chart review, radiology results, and monitoring for potential decompensation. Intervention performed as documented. Discharge Plan Discharge Clinical Impression: Bray's cyst Qualifiers: Laterality: right Qualified Code(s): M71.21 - Synovial cyst of popliteal space [Bray], right knee Iron deficiency anemia Qualifiers: Iron deficiency anemia type: unspecified iron deficiency Qualified Code(s): D 50.9 - Iron deficiency anemia, unspecified Patient Disposition: Home, Self-Care Instructions: Iron Deficiency Anemia (ED), Bakers Cyst (ED) Additional Instructions: There is a complex Bray's cyst measuring 5.4 x 1.9 x 3.4 cm. This is what is causing your leg swelling. Wear the EDIN wrap and elevate your leg when possible to help with the swelling. You were very anemic today with a hemoglobin of 6.7. Your iron stores are very low. It is important to take iron supplements to replete your iron stores. This can cause constipation so recommend using stool softeners and laxatives as needed. Follow-up with Gastroenterology, Hematology and your primary care doctor. Call for appointments. If you develop new or worsening symptoms call 911 or come back to the ER for further evaluation. Prescriptions: New ferrous sulfate [iron] 325 mg (65 mg iron) tablet 325 mg PO BID Qty: 60 0RF No Action albuterol sulfate [ProAir HFA] 90 mcg/actuation HFA aerosol inhaler 2 puff inhalation Q4-6H PRN (Reason: shortness of breath or wheezing) 30 Days Qty: 8.5 2RF folic acid 1 mg tablet 1 mg PO DAILY Qty: 90 3RF pravastatin 40 mg tablet 40 mg PO DAILY 90 Days Qty: 90 1RF hydroxychloroquine 200 mg tablet 200 mg PO DAILY Qty: 90 0RF ropinirole 1 mg tablet 2 mg PO TID Qty: 90 1RF omeprazole 20 mg capsule,delayed release(DR/EC) 20 mg PO DAILY Qty: 30 0RF amlodipine 2.5 mg tablet 2.5 mg PO DAILY (DME) blood pressure monitor Kit See Rx Instructions .Route Qty: 1 0RF Rx Instructions: check bp twice a week and when not feeling well prednisone 20 mg tablet 40 mg PO DAILY 5 Days Qty: 10 0RF cetirizine [Zyrtec] 10 mg tablet 10 mg PO DAILY 30 Days Qty: 30 0RF ferrous sulfate [Feosol] 325 mg (65 mg iron) tablet 325 mg PO DAILY Combivent Respimat 20-100 mcg/actuation mist 1 puff inhalation QID Referrals: [facility] [place] Gastroenterology Services [Provider Group] [facility] [place] Oncology/Hematology [Provider Group] (Iron-deficiency anemia) Kirstin Waldrop, CARLOS [Primary Care Provider] - Print Language: Tajik
[2023-10-25 09:01] LABS: MANUAL DIFF FLAG NO
[2023-10-25 09:02] LABS: Basophils Percent Auto 0.4 % (0-2); Eosinophils Absolute Auto 0.1 X10*3/uL (0.0-0.4); Eosinophils Percent Auto 1.3 % (0-4); Hematocrit 22.6 % (37.0-47.0); Imm Gran Abs Auto 0.04 X10*3/uL (0.00-0.03); Imm Gran Pct Auto 0.6 % (0.0-0.4); Lymphocytes Absolute Auto 1.1 X10*3/uL (1.2-4.9); Lymphocytes Percent Auto 15.6 % (20-40); Mean Corpuscular HGB Conc 29.6 g/dl (31.0-35.0); Mean Corpuscular Volume 70.8 fL (80.0-98.0); Mean Platelet Volume 8.7 fL (9.4-12.3); Monocytes Absolute Auto 0.9 X10*3/uL (0.1-1.2); Monocytes Percent Auto 13.7 % (2-11); Neutrophils Absolute Auto 4.6 x10*3/uL (2.0-8.3); Neutrophils Percent Auto 68.4 % (45-73); Platelet Count 521 X10*3/uL (160-400); Red Blood Count 3.19 X10*6/uL (4.20-5.50); Red Cell Distribution Width 16.8 % (11.0-16.0); White Blood Count 6.7 X10*3/uL (4.8-10.8)
[2023-10-25 09:04] LABS: Hemoglobin 6.7 g/dl (12.0-16.0)
[2023-10-25 09:17] LABS: Alanine Aminotransferase 9 U/L (0-31); Albumin Level 3.7 g/dL (3.5-5.0); Alkaline Phosphatase 53 U/L (39-117); Anion Gap 14 (12-20); Aspartate Amino Transferase 15 U/L (5-31); Bilirubin Direct 0.2 mg/dL (0.0-0.5); Bilirubin Total 0.4 mg/dL (0.0-1.0); Blood Urea Nitrogen 9 mg/dL (9-16); Calcium 8.3 mg/dL (8.4-10.2); Carbon Dioxide 22 mmol/L (22-29); Chloride 109 mmol/L (96-108); Creatinine Clr Calc Pharmacy 60.8; Estimated Glomerular Filt Rate > 60; Glucose Random 98 mg/dL (60-115); Magnesium 1.9 mg/dL (1.6-2.6); Potassium 3.9 mmol/L (3.3-5.1); Sodium 141 mmol/L (135-145); Total Protein 6.8 g/dL (6.5-8.0)
[2023-10-25 09:22] LABS: B Type Natriuretic Peptide 98 pg/mL (<100)
--- NOTE | 2023-10-25 09:26 | PC.NURSE ---
Type and Screen drawn, PIV established.
[2023-10-25 10:16] LABS: OBS Int Ctl Valid YES; OBS1 NEGATIVE (NEGATIVE)
[2023-10-25 10:44] LABS: Reticulocytes Absolute 0.051 X10*6/uL (0.026-0.095)
[2023-10-25 10:45] LABS: Reticulocyte Percent 1.6 % (0.5-1.8)
[2023-10-25 10:57] LABS: Iron < 7 mcg/dL (30-160); Percent Iron Saturation 2 % (15-50); Total Iron Binding Capacity 354 mcg/dL (228-428); Unsaturated Iron Binding 347 ug/dL
--- NOTE | 2023-10-25 11:50 | PC.NURSE ---
Per blood bank, waiting on a crossmatch before releasing blood.
--- NOTE | 2023-10-25 12:42 | PC.NURSE ---
1st unit PRBC infusing, no s/s of adverse reaction noted. Pt reports having blood transfusions in the past. Pt given warm blankets per request.
--- NOTE | 2023-10-25 13:52 | PC.NURSE ---
Pt ambulatory to the BR with a steady gait.
== END 2023-10-25 16:18 | disposition home or self-care (01) ==
PROVIDERS: Physician Assistant; Emergency Provider Emergency Medicine; PCP Nurse Practitioner Family
DX: M71.21 Synovial cyst of popliteal space [Baker], right knee (principal); D50.9 Iron deficiency anemia, unspecified; R60.0 Localized edema; M79.661 Pain in right lower leg; R06.02 Shortness of breath; Z79.899 Other long term (current) drug therapy
CPT/HCPCS: 36415; 36430; 80048; 80076; 82272; 83540; 83735; 83880; 85025; 85045; 86850; 86870; 86900; 86901; 86920; 86922; 93971; 99284; 99285; P9016

== ENCOUNTER 2023-11-23 16:00 | Outpatient (AMB) | payer MEDICARE, SELFPAY ==
--- NOTE | 2023-11-23 16:09 | A.OFFPC_ITS ---
Vital Signs 11/23/23 16:29 11/23/23 16:50 Height 5 ft 1 in Weight 126 lb 8 oz BMI 23.9 BP 165/83 H 150/82 H Blood Pressure Location Rt brachial Rt brachial Position Sitting Sitting Respiration 16 Pulse 98 Pulse Source Pulse Oximeter Temp 97.5 F Temp Source Temporal Artery Scan Pulse Oximetry (%) 94 Oxygen Delivery Method Room Air Intake Visit Reasons: 2 months anemia, HTN, HLD Intake Note: patient here to follow up on anemia, HTN, HLD. Care Transitions Manager Required: No Is last menstrual period known: No Post menopausal: No Patient : No Allergies oxycodone [From OxyContin] Allergy (Mild, Verified 11/23/23 16:43) Hives Medication List - Last Reconciled 11/23/23 by Kirstin Waldrop CNP albuterol sulfate 90 mcg/actuation (ProAir HFA) 2 puffs inhalation Q4-6H PRN 1 month amlodipine 2.5 mg PO DAILY blood pressure monitor check bp twice a week and when not feeling well cetirizine (Zyrtec) 10 mg PO DAILY 30 days ferrous sulfate (Feosol) 325 mg PO DAILY folic acid 1 mg PO DAILY hydroxychloroquine 200 mg PO DAILY ipratropium-albuterol 20-100 mcg/actuation (Combivent Respimat) 1 puff inhalation QID omeprazole 20 mg PO DAILY pravastatin 40 mg PO DAILY 90 days prednisone 40 mg (2 x 20 mg) PO DAILY 5 days ropinirole 2 mg (2 x 1 mg) PO TID Tobacco use date assessed: 11/23/23 Fall risk assessment: No Falls in past year Dental Screening Dental Screen Date: 11/23/23 Did you have a dental visit in the last 12 months?: No Did you have a dental problem in the last 6 months where you did not have access to dental care?: No Was dental information given to patient?: Patient declined (she has no teeth) HPI HPI Comments History of Present Illness Details 78-year-old female presents for iron-def iciency anemia, hypertension, and hyperlipidemia follow-up On 10/25 2023, she was treated at [facility] for a complicated right Bray's cyst and iron-deficiency anemia. Her H&H was 6.7/22.6. She received blood transfusion and was discharged home on ferrous sulfate 25 mg twice daily and recommendations to follow-up with Hematology and Gastroenterology She reports mild pain to her right knee only with walking. She notes that she has been applying an Edin bandage to the knee at bedtime and she has been ambulating the extremity. She has not been elevating the extremity She admits to taking her medications as prescribed without adverse reaction. However, she is confused about her medications. She notes that she is taking omeprazole for hypertension. She admits to taking ferrous sulfate 325 mg twice daily. 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 How often do you have a drink containing alcohol?: Never Total Score: 0 MARVA-7 AMB Questionnaire MARVA-7 Date MARVA - 7 assessed: 11/23/23 Source: Developed by Drs. Mesfin Singh, Raiza Ortega, Naga Das and colleagues, with an educational silvestre from [employer]. Review of Systems Const Details: Const Denies chills, Denies fatigue, Denies fever(s), Denies headache(s) and Denies weakness ENT Denies dizziness and Denies headache(s) Card Denies chest pain, Denies lightheadedness, Denies dyspnea and Denies other (Palpitations) Resp Denies cough, Denies dyspnea, Denies wheezing and Denies other ( shortness of breath) GI Denies abdominal pain, Denies melena, Denies hematochezia, Denies change in mary wel habits, Denies dyspepsia and Denies nausea Denies hematuria and Denies dysuria Musc Denies abnormal gait, Denies numbness and Denies tingling Skin/Breast Denies rash, Denies unusual bruising and Denies wounds Neuro Denies abnormal gait, Denies dizziness, Denies headache(s), Denies memory loss, Denies numbness, Denies Sensory deficit (Neuro), Denies tingling and Denies weakness Psych Denies anxiety, Denies depression, Denies memory loss Endo Denies cold intolerance, Denies fatigue, Denies heat intolerance, Denies polydipsia and Denies polyuria Aller/Immun Denies wheezing Physical exam (Primary Care) Vital Signs: Last Vital Signs Temp 97.5 F 11/23/23 16:29 Pulse 98 11/23/23 16:29 Resp 16 11/23/23 16:29 BP 150/82 H 11/23/23 16:50 Pulse Ox 94 11/23/23 16:29 Oxygen Delivery Method Room Air 11/23/23 16:29 BMI result Body Mass Index 23.9 Tobacco/Smoking Status: Tobacco use Status Tobacco use date assessed 11/23/23 11/23/23 16:32 Patient Tobacco Use Status Current everyday Tobacco 11/23/23 16:09 Tobacco use type Cigarette 11/23/23 16:09 e-Cigarette/Vaping Use Never Used 11/23/23 16:09 PHQ-9: PHQ-9 Score PHQ-9: Total score 21 11/23/23 16:40 Thrive Assessment: Date of Thrive Assessment Date Thrive assessed 03/30/23 11/23/23 16:09 Const Other: General: no acute distress and well developed Nutritional Appearance: well nourished Orientation/consciousness: patient oriented x3 HENMT Head: Yes normocephalic and Yes atraumatic Eyes General: appearance normal, both eyes and all related structures Pupils: Equal, round and reactive pupils present EOM: EOMs intact bilaterally Resp Effort & Inspection: normal respiratory effort Auscultation: clear to auscultation bilaterally Cardio Rate: regular rate Rhythm: regular rhythm Heart sounds: S1 normal heart sound present, S2 normal heart sound present, no gallops, no murmurs and no rubs GI Palpation (GI): No Abdominal aortic bruit present, Soft to palpation, nontender, No hepatosplenomegaly present and No Rebound tenderness present Auscultation: normal bowel sounds General: Yes no CVA tenderness Back/Spine/Pelvis Back: no CVA tenderness Cervical Spine: cervical ROM normal and No Cervical spine tenderness Thoracic/Lumbar Spine: thoraco-lumbar ROM normal, No pain with thoraco-lumbar ROM, No thoracic spinal tenderness and No lumbar spinal tenderness Extrem General: Yes normal to inspection, No calf tenderness Moderate edema of the right anterior knee, normal range of motion, no overt injury or trauma Skin General: warm and dry. Normal skin color. Normal skin turgor Neuro General: patient oriented x3, gait normal and no focal neuro deficit Cranial nerves: Yes Equal, round and reactive pupils present Cognition (Neuro): normal cognition Gait exam (Neuro): Normal gait present Sensory Exam: No Sensory deficit (Neuro) Psych Appearance: grossly normal Affect: normal affect Attitude: cooperative Thought process: Normal thought process present Assessment and Plan Assessment & Plan (1) Hypertension: Code(s): I10 - Essential (primary) hypertension Qualifiers: Hypertension type: primary hypertension Qualified Code(s): I10 - Essential (primary) hypertension Plan: Resting blood pressure is 150/82, above goal of less than 140/90 Will order amlodipine 5 mg daily. Advised to take as prescribed. Instructed on the risks, benefits, and potential adverse reactions of the medication Low-sodium diet encouraged Follow-up in 1 week or sooner with symptoms or concerns Verbalized understanding and agreed with treatment plan The MA will call the pharmacy to reconcile the patient's current medications; will refer to VNA services for medication management/administration once her medications are reconciled (2) Synovial cyst of popliteal space [Bray], right knee: Code(s): M71.21 - Synovial cyst of popliteal space [Bray], right knee Plan: Mild pain to her right knee only with walking Moderate edema noted to the right anterior knee. ROM is normal. No overt injury or trauma Cold compresses encouraged Continue to apply Edin bandage while at rest Encouraged to elevate her lower extremity to reduce edema Tylenol ordered. Advised to take as prescribed. Instructed on the risks, benefits, and potential adverse reactions of the medication Follow-up with worsening or new signs and symptoms Verbalized understanding and agreed with treatment plan (3) Iron deficiency anemia: Code(s): D50.9 - Iron deficiency anemia, unspecified Plan: H/H was 6.7/22.6 during or [facility] visit on 10/25/2023. She received blood transfusion and was sent home with ferrous sulfate. She admits to taking her medications as prescribed. She has not followed up with Hematology and Gastroenterology Continue to take ferrous sulfate as prescribed Advised to get blood work done before her next visit Follow-up in 1 week or sooner with symptoms or concerns Verbalized understanding and agreed with the treatment plan Orders: Orders Reticulocyte Count Today D50.9 - Iron deficiency anemia, unspecified IRON PROFILE Today D50.9 - Iron deficiency anemia, unspecified Ferritin Today D50.9 - Iron deficiency anemia, unspecified Medications: New amlodipine 5 mg PO DAILY 30 days 30 tabs 3RF acetaminophen 650 mg (2 x 325 mg) PO Q6H PRN 60 tabs 1RF pain Discontinued prednisone Discontinued Reason: Doctor's Order 40 mg (2 x 20 mg) PO DAILY 5 days 10 tabs 0RF Coding Level of Care Code Est Pt Level 4 (42203) Complex EM visit Add On G2211 Diagnoses Primary hypertension I10 Hypertension type: primary hypertension Synovial cyst of popliteal space [Bray], right knee M71.21 Iron deficiency anemia D50.9
[2023-11-23 16:29] VITALS: BP 165/83; PULSE 98; RESP 16; TEMP 36.4; O2SAT 94; BMI 23.9
[2023-11-23 16:50] VITALS: BP 150/82
== END 2023-11-23 17:01 | disposition home or self-care (01) ==
PROVIDERS: PCP Nurse Practitioner Family; Visit Provider Nurse Practitioner Family
DX: I10 Essential (primary) hypertension (principal); M71.21 Synovial cyst of popliteal space [Baker], right knee; D50.9 Iron deficiency anemia, unspecified
CPT/HCPCS: 99214; G2211

== ENCOUNTER 2023-11-25 08:32 | Outpatient (REF) | payer MEDICARE, SELFPAY ==
[2023-11-25 09:40] LABS: Hematocrit 33.3 % (37.0-47.0); Mean Corpuscular Volume 76.6 fL (80.0-98.0); Mean Platelet Volume 9.5 fL (9.4-12.3); Platelet Count 493 X10*3/uL (160-400); Red Blood Count 4.35 X10*6/uL (4.20-5.50); Red Cell Distribution Width 23.2 % (11.0-16.0); Retic HGB Equivalent 27.4 pg (30.0-35.0); Reticulocyte Percent 0.9 % (0.5-1.8); White Blood Count 6.7 X10*3/uL (4.8-10.8)
[2023-11-25 10:18] LABS: Cholesterol 124 mg/dL (<200); HDL Cholesterol 57 mg/dL (>40); Iron 79 mcg/dL (30-160); LDL Cholesterol Calculated 56 mg/dL (<100); Percent Iron Saturation 25 % (15-50); Total Iron Binding Capacity 315 mcg/dL (228-428); Triglycerides 59 mg/dL (<150); Unsaturated Iron Binding 236 ug/dL
[2023-11-25 10:36] LABS: Ferritin 18 ng/mL (10-250)
== END 2023-11-25 08:33 | disposition home or self-care (01) ==
LOC: HO.LAB 08:32
PROVIDERS: PCP Family Medicine; Visit Provider Nurse Practitioner Family
DX: D50.9 Iron deficiency anemia, unspecified (principal); E78.5 Hyperlipidemia, unspecified
CPT/HCPCS: 36415; 80061; 82728; 83540; 85027; 85045

== ENCOUNTER 2023-12-03 11:31 | Outpatient (AMB) | payer MEDICARE, SELFPAY ==
--- NOTE | 2023-12-03 11:36 | MHC.PC.OV ---
Vital Signs 12/03/23 11:41 Height 5 ft 1 in Weight 125 lb 4 oz BMI 23.7 BP 122/64 Blood Pressure Location Lt brachial Position Sitting Respiration 16 Pulse 94 Pulse Source Pulse Oximeter Temp 97.9 F Temp Source Oral Pulse Oximetry (%) 94 Oxygen Delivery Method Room Air Intake Visit Reasons: 1 week follow up htn Intake Note: patient here for follow up on HTN. Demi Chef Required: No Is last menstrual period known: No Post menopausal: No Patient : No Allergies oxycodone [From OxyContin] Allergy (Mild, Verified 12/03/23 11:40) Hives Tobacco use date assessed: 12/03/23 Fall risk assessment: No Falls in past year Last assessed Fall Risk: 12/03/23 Dental Screening Dental Screen Date: 12/03/23 Did you have a dental visit in the last 12 months?: No Did you have a dental problem in the last 6 months where you did not have access to dental care?: No Was dental information given to patient?: Patient declined HPI HPI Comments History of Present Illness Details 78-year-old female presents for hypertension follow-up She admits to taking amlodipine 5 mg daily as prescribed without adverse reactions. She states that she was recently on ferrous sulfate 325 mg twice daily but ran out of the medication about 2-3 days ago. 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 1. Little interest or pleasure in doing things: not at all 2. Feeling down, depressed, or hopeless: not at all 3. Trouble falling or staying asleep, or sleeping too much: not at all 4. Feeling tired or having little energy: not at all 5. Poor appetite or overeating: not at all 6. Feeling bad about yourself - or that you are a failure or have let yourself or your family down: not at all 7. Trouble concentrating on things, such as reading the newspaper or watching television: not at all 8. Moving or speaking so slowly that other people could have noticed. Or the opposite - being so fidgety or restless that you have been moving around a lot more than usual: not at all 9. Thoughts that you would be better off or of hurting yourself in some way: not at all Total score: 0 64300 - PHQ-9 Billing: Yes Source: Developed by Drs. Mesfin Singh, Raiza Ortega, Naga Das and colleagues, with an educational silvestre from [email or web address]. Thrive Questionnaire Date Thrive assessed: 03/30/23 MARVA-7 AMB Questionnaire MARVA-7 Date MARVA - 7 assessed: 11/23/23 Source: Developed by Drs. Mesfin Singh, Naga Rousseau and colleagues, with an educational silvestre from [email or web address]. Review of Systems Const Details: Const Denies chills, Denies fatigue, Denies fever(s), Denies headache(s) and Denies weakness ENT Denies dizziness and Denies headache(s) Card Denies chest pain, Denies lightheadedness, Denies dyspnea and Denies other (Palpitations) Resp Denies cough, Denies dyspnea, Denies wheezing and Denies other ( shortness of breath) GI Denies abdominal pain, Denies melena, Denies hematochezia, Denies change in bowel habits, Denies dyspepsia and Denies nausea Denies hematuria and Denies dysuria Musc Denies abnormal gait, Denies myalgias, Denies arthralgias, Denies numbness and Denies tingling Skin/Breast Denies rash, Denies unusual bruising and Denies wounds Neuro Denies abnormal gait, Denies dizziness, Denies headache(s), Denies memory loss, Denies numbness, Denies Sensory deficit (Neuro), Denies tingling and Denies weakness Psych Denies anxiety, Denies depression, Denies memory loss Endo Denies cold intolerance, Denies fatigue, Denies heat intolerance, Denies polydipsia and Denies polyuria Aller/Immun Denies wheezing Physical exam (Primary Care) Vital Signs: Last Vital Signs Temp 97.9 F 12/03/23 11:41 Pulse 94 12/03/23 11:41 Resp 16 12/03/23 11:41 BP 122/64 12/03/23 11:41 Pulse Ox 94 12/03/23 11:41 Oxygen Delivery Method Room Air 12/03/23 11:41 BMI result Body Mass Index 23.7 Tobacco/Smoking Status: Tobacco use Status Tobacco use date assessed 12/03/23 12/03/23 11:45 Patient Tobacco Use Status Current everyday Tobacco 12/03/23 11:37 Tobacco use type Cigarette 12/03/23 11:37 e-Cigarette/Vaping Use Never Used 12/03/23 11:37 PHQ-9: PHQ-9 Score PHQ-9: Total score 0 12/03/23 11:45 Thrive Assessment: Date of Thrive Assessment Date Thrive assessed 03/30/23 12/03/23 11:37 Const Other: General: no acute distress and well developed Nutritional Appearance: well nourished Orientation/consciousness: patient oriented x3 HENMT Head: Yes normocephalic and Yes atraumatic Eyes General: appearance normal, both eyes and all related structures Pupils: Equal, round and reactive pupils present EOM: EOMs intact bilaterally Resp Effort & Inspection: Normal respiratory effort Auscultation: Coarse crackles Cardio Rate: regular rate Rhythm: regular rhythm Heart sounds: S1 normal heart sound present, S2 normal heart sound present, no gallops, no murmurs and no rubs GI Palpation (GI): No Abdominal aortic bruit present, Soft to palpation, nontender, No hepatosplenomegaly present and No Rebound tenderness present Auscultation: normal bowel sounds General: Yes no CVA tenderness Back/Spine/Pelvis Back: no CVA tenderness Cervical Spine: cervical ROM normal and No Cervical spine tenderness Thoracic/Lumbar Spine: thoraco-lumbar ROM normal, No pain with thoraco-lumbar ROM, No thoracic spinal tenderness and No lumbar spinal tenderness Extrem General: Yes normal to inspection, No edema and No calf tenderness Skin General: warm and dry. Normal skin color. Normal skin turgor Neuro General: patient oriented x3, gait normal and no focal neuro deficit Cranial nerves: Yes Equal, round and reactive pupils present Cognition (Neuro): normal cognition Gait exam (Neuro): Normal gait present Sensory Exam: No Sensory deficit (Neuro) Psych Appearance: grossly normal Affect: normal affect Attitude: cooperative Thought process: Normal thought process present Assessment and Plan Assessment & Plan (1) Hypertension: Code(s): I10 - Essential (primary) hypertension Qualifiers: Hypertension type: primary hypertension Qualified Code(s): I10 - Essential (primary) hypertension Plan: Blood pressure is 122/64, within goal of less than 140/90 Continue current treatment regimen Low-sodium diet encouraged Will continue to monitor Verbalized understanding and agreed with the treatment plan She declines referral to VNA for medication management/administration and notes that she is able to manage and take her medications as prescribed (2) Iron deficiency anemia: Code(s): D50.9 - Iron deficiency anemia, unspecified Plan: Significant improvement with recent H&H and MCV, 10/33.3 and 76 Iron studies are normal Will order ferrous sulfate 325 mg daily. Advised to take as prescribed. Instructed on the risks, benefits, and potential adverse reactions of the medication Ref[place] [facility] [place] and Gastroenterology Will recheck CBC levels. Advised to get blood work done a few days before next visit Follow-up in 2 months Verbalized understanding and agreed with the treatment plan (3) Hyperlipidemia: Code(s): E78.5 - Hyperlipidemia, unspecified Plan: Recent lipid panel level is normal Continue to take pravastatin 40 mg daily Advised to limit foods high in saturated fat and avoid foods high in trans fat Routine exercise encouraged Will recheck lipid panel levels in 4 months Verbalized understanding and agreed with the plan (4) Abnormal lung sounds: Code(s): R09.89 - Other specified symptoms and signs involving the circulatory and respiratory systems Plan: Coarse crackles during inspiration and expiration bilaterally Likely due to COPD or smoking She notes she currently smokes 4-5 cigarettes daily. She has been smoking since she was 20 years old and smoked more. Instructed on the health risks and complications of cigarette smoking and encouraged to stop smoking. She declines medication treatment for smoking cessation. Encouraged to use albuterol inhaler as needed. She may inform her PCP if she changes her mind on medication for smoking cessation. She verbalized understanding and agreed with treatment plan. (5) Colon cancer screening: Code(s): Z12.11 - Encounter for screening for malignant neoplasm of colon Plan: She notes that her last colonoscopy was possibly 2-3 years ago at [facility] Colonoscopy ordered Orders: Orders Complete Blood Count no Diff 2 Months D50.9 - Iron deficiency anemia, unspecified Referrals Gastroenterology Referral D50.9 - Iron deficiency anemia, unspecified Hematology & Oncology Referral D50.9 - Iron deficiency anemia, unspecified Gastroenterology Referral Z12.11 - Encounter for screening for malignant neoplasm of colon Medications: Changed From ferrous sulfate (Feosol) 325 mg PO DAILY To ferrous sulfate (Feosol) 325 mg PO DAILY 30 days 30 tabs 2RF From albuterol sulfate 90 mcg/actuation (ProAir HFA) 2 puffs inhalation Q4-6H 1 month PRN 8.5 grams 2RF shortness of breath or wheezing J44.9 - Chronic obstructive pulmonary disease, unspecified To albuterol sulfate 90 mcg/actuation 2 puffs inhalation Q4-6H 1 month PRN 8.5 grams 4RF shortness of breath or wheezing J44.9 - Chronic obstructive pulmonary disease, unspecified Refilled ropinirole 2 mg (2 x 1 mg) PO TID 90 tabs 1RF G25.81 - Restless legs syndrome omeprazole 20 mg PO DAILY 30 caps 3RF Coding Level of Care Code Est Pt Level 4 (13977) Complex EM visit Add On G2211 Diagnoses Primary hypertension I10 Hypertension type: primary hypertension Iron deficiency anemia D50.9 Hyperlipidemia E78.5 Abnormal lung sounds R09.89 Colon cancer screening Z12.11
[2023-12-03 11:41] VITALS: BP 122/64; PULSE 94; RESP 16; TEMP 36.6; O2SAT 94; BMI 23.7
== END 2023-12-03 12:14 | disposition home or self-care (01) ==
PROVIDERS: PCP Nurse Practitioner Family; Visit Provider Nurse Practitioner Family
DX: I10 Essential (primary) hypertension (principal); D50.9 Iron deficiency anemia, unspecified; E78.5 Hyperlipidemia, unspecified; R09.89 Other specified symptoms and signs involving the circulatory and respiratory systems; Z12.11 Encounter for screening for malignant neoplasm of colon
CPT/HCPCS: 99214; G2211

== ENCOUNTER 2024-01-17 15:29 | Outpatient (AMB) | payer MEDICARE, SELFPAY ==
[2024-01-17 15:39] VITALS: BP 116/70; PULSE 102; O2SAT 92; BMI 22.5
--- NOTE | 2024-01-17 15:39 | A.OFFVIS_ITS ---
Vital Signs 01/17/24 15:39 Height 5 ft 1 in Weight 119 lb BMI 22.5 BP 116/70 Blood Pressure Location Lt brachial Position Sitting Pulse 102 H Pulse Source Pulse Oximeter Pulse Oximetry (%) 92 Oxygen Delivery Method Room Air Intake Visit Reasons: RA Intake Note: Patient presents for follow up for RA and, last seen on 03/25/2023 patient needs refills on her folic acid and hydrochloroquin. Allergies oxycodone [From OxyContin] Allergy (Mild, Verified 01/17/24 15:40) Hives Medication List - Last Reconciled 01/17/24 by Kirstin Linton MD acetaminophen 650 mg (2 x 325 mg) PO Q6H PRN albuterol sulfate 90 mcg/actuation 2 puffs inhalation Q4-6H PRN 1 month amlodipine 5 mg PO DAILY 30 days blood pressure monitor check bp twice a week and when not feeling well cetirizine (Zyrtec) 10 mg PO DAILY 30 days ferrous sulfate (Feosol) 325 mg PO DAILY 30 days folic acid 1 mg PO DAILY hydroxychloroquine 200 mg PO DAILY ipratropium-albuterol 20-100 mcg/actuation (Combivent Respimat) 1 puff inhalation QID omeprazole 20 mg PO DAILY pravastatin 40 mg PO DAILY 90 days ropinirole 2 mg (2 x 1 mg) PO TID HPI Comments Details: 78-year-old female with seropositive RA returns for follow-up. She has not been seen in clinic since 03/2023. Patient stated that her car transmission has not been working well and she missed numerous doctors appointments. She has not been taking her hydroxychloroquine. Her main complaint is right knee pain. She has been having right knee pain and swelling for about 3 months now. She went to the ED, right lower extremity venous duplex showed a Bray's cyst. She has been using a cane for the last 3 months. She also has intermittent joint pains and swelling in her hands. Has run out of the hydroxychloroquine. She denies any fevers Initial history: This is a 77-year-old female with hypertension, COPD, chronic smoker, GI bleeding (? Acquired bowel telangiectasias) currently on iron infusions who presents for evaluation of rheumatoid arthritis. She was apparently diagnosed with rheumatoid arthritis more than 10 years ago (+++ve RF & +++CCP) she initially saw Dr. Jenkins and was seeing Bradford Spears most recently. She stated that she was always on methotrexate 4 tabs weekly. There has been no change in medicines. She currently denies any joint pain, stiffness or swelling. She presented to the hospital 2 weeks ago and was found to have a swollen knee, right knee arthrocentesis showed significantly elevated white count and intracellular CPPD crystals consistent with pseudogout. Patient states she gets intermittent flares of knee swelling every 6 months or so. 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 Current occupational exposures/hazards: No Cognitive needs: No Hearing needs: No Vision needs: Yes Review of Systems Musc Reports arthralgias, Reports joint swelling, Reports limited range of motion and Reports stiffness Physical Exam Vital Signs: BMI result Body Mass Index 22.5 Const General: cooperative, comfortable and no acute distress HEENT Head: Yes normocephalic and Yes atraumatic Resp Effort & Inspection: normal respiratory effort and able to speak in complete sentences Auscultation: rhonchi Cardio Rate: regular rate Rhythm: regular rhythm Skin General skin exam: pallor Rashes: no rashes Extrem Other: Right 2nd MCP swelling and tenderness Right 1st CMC joint tenderness Right 1st MCP joint tenderness Significant right knee swelling, tenderness and pain with any range of motion Office Procedures Joint Injection/Aspiration Joint Injection/Aspiration Primary Site: right knee Prep: site was prepped using sterile technique and ethochloride spray was applied Injected: 40 mg of, Kenalog, with 1 mL of, 1% plain lidocaine and in the joint Approach Used: medial parapatellar Procedure: The patient tolerated the procedure well Coding Details: With patient's consent, With the patient's consent the right knee was prepped with ChloraPrep. The skin was anesthetized with 2 cc of 1% lidocaine. Using an 18 gauge needle, right knee arthrocentesis was attempted but it was a dry tap. Then 40 mg of Kenalog mixed with 1 mL of 1% lidocaine was injected into the joint space. The patient tolerated the procedure well with no apparent acute adverse events - Large joint Procedure code (CPT) selection complete Assessment & Plan Assessment & Plan (1) Rheumatoid arthritis: Comment: +++CCP +++RF dx around 2011 on MTX throughout (partially effective) HCQ 12/2022 partially effective Code(s): M06.9 - Rheumatoid arthritis, unspecified Category: Medical Qualifiers: Rheumatoid arthritis location: multiple sites Rheumatoid factor presence: with rheumatoid factor Qualified Code(s): M05.79 - Rheumatoid arthritis with rheumatoid factor of multiple sites without organ or systems involvement Plan: This is a 78-year-old female with seropositive RA who presents for follow-up. Patient has not been seen in clinic since 03/2023. She has not been on DMARDs for months. On exam she has multiple swollen and tender joints in her hands. She has significantly swollen right knee which may be due to active RA versus pseudogout flare. Not likely to be septic arthritis as patient has no fevers and has had the swelling for the last 3 months. Right knee arthrocentesis was attempted in clinic today, it was a dry tap. With patient's consent, right knee was injected with Kenalog. Advised patient that if her right knee pain does not improve in the next 1-2 weeks to call the clinic and I will prescribe a prednisone taper. Restart hydroxychloroquine at 200 mg daily Labs before next visit in 2 months (2) Osteoporosis: Comment: DEXA 05/2021 L-spine T-score-3.2 Left forearm T-score-3.6 Left femoral neck T-score-4.1 Left total hip T-score -3.8 Reclast 10/30 Code(s): M81.0 - Age-related osteoporosis without current pathological fracture Category: Medical Qualifiers: Osteoporosis type: age-related Presence of current pathological fracture: unspecified Qualified Code(s): M81.0 - Age-related osteoporosis without current pathological fracture Plan: Severe osteoporosis. Reclast started 10/30. She did not receive her dose in 2023. We will arrange for Reclast infusion this year Repeat DEXA summer 2024 (3) Pseudogout of knee: Code(s): M11.269 - Other chondrocalcinosis, unspecified knee Category: Medical Qualifiers: Laterality: right Qualified Code(s): M11.261 - Other chondrocalcinosis, right knee Plan: in 03/31 when patient presented to the ED she had right knee effusion, synovial fluid showed 45,000 cells with positive CPPD crystals. No evidence of infection. Picture consistent with pseudogout at that time (4) Nicotine dependence: Code(s): F17.200 - Nicotine dependence, unspecified, uncomplicated Category: Medical Qualifiers: Nicotine product type: cigarettes Plan: Long-term smoker. Continues to smoke. Discussed ill effects of smoking on health and association with increased rheumatoid arthritis activity. Counseled patient to quit or at least cut down (5) Long-term use of hydroxychloroquine: Code(s): Z79.899 - Other superintendent container terminal (current) drug therapy Category: Medical Plan: Follow-up regularly with traffic survey technician Plan I spent 31 minutes reviewing patient's chart, evaluating patient, ordering diagnostic workup, counseling patient and documenting in the chart Orders: Orders Comprehensive Met. Panel 2 Months M05.79 - Rheumatoid arthritis with rheumatoid factor of multiple sites without organ or systems involvement C Reactive Protein 2 Months M05.79 - Rheumatoid arthritis with rheumatoid factor of multiple sites without organ or systems involvement Erythrocyte Sedimentation Rate 2 Months M05.79 - Rheumatoid arthritis with rheumatoid factor of multiple sites without organ or systems involvement T Spot TB 2 Months Z11.7 - Encounter for testing for latent tuberculosis infection AMB Joint Injection/Aspiration Today M05.79 - Rheumatoid arthritis with rheumatoid factor of multiple sites without organ or systems involvement Complete Blood Count Auto Diff 2 Months M05.79 - Rheumatoid arthritis with rheumatoid factor of multiple sites without organ or systems involvement Medications: Refilled hydroxychloroquine 200 mg PO DAILY 90 tabs 0RF Coding Level of Care Code Est Pt Level 4 (75044) Diagnoses Rheumatoid arthritis involving multiple sites with positive rheumatoid factor M05.79 Rheumatoid arthritis location: multiple sites Rheumatoid factor presence: with rheumatoid factor Age related osteoporosis, unspecified pathological fracture presence M81.0 Osteoporosis type: age-related Presence of current pathological fracture: unspecified Pseudogout of right knee M11.261 Laterality: right Nicotine dependence F17.200 Nicotine product type: cigarettes Long-term use of hydroxychloroquine Z79.899 CPT Codes Coding - 46390 Large joint: 75489 - Large joint ([id number])
== END 2024-01-17 16:22 | disposition home or self-care (01) ==
PROVIDERS: PCP Nurse Practitioner Family; Visit Provider Student in an Organized Health Care Education/Training Program
DX: M05.79 Rheumatoid arthritis with rheumatoid factor of multiple sites without organ or systems involvement (principal); M81.0 Age-related osteoporosis without current pathological fracture; M11.261 Other chondrocalcinosis, right knee; F17.200 Nicotine dependence, unspecified, uncomplicated; Z79.899 Other long term (current) drug therapy
CPT/HCPCS: 20610; 99214

== ENCOUNTER → 2024-01-17 15:29 | Outpatient (BNVA) | payer MEDICARE, SELFPAY | PROVIDERS: PCP Nurse Practitioner Family; Visit Provider Student in an Organized Health Care Education/Training Program | DX: M81.0 Age-related osteoporosis without current pathological fracture (principal); M05.79 Rheumatoid arthritis with rheumatoid factor of multiple sites without organ or systems involvement; M11.261 Other chondrocalcinosis, right knee; Z79.899 Other long term (current) drug therapy | CPT/HCPCS: 20610; 99212 ==

== ENCOUNTER → 2024-01-20 07:49 | Outpatient (BNV) | payer MEDICARE, SELFPAY | PROVIDERS: PCP Nurse Practitioner Family; Referring Provider Nurse Practitioner Family; Visit Provider Internal Medicine Medical Oncology | DX: D50.9 Iron deficiency anemia, unspecified (principal) | CPT/HCPCS: 99204 ==

== ENCOUNTER 2024-01-28 14:49 | Outpatient (RCR) | payer MEDICARE, SELFPAY ==
[2024-01-28 15:13] VITALS: BP 151/86; PULSE 90; RESP 16; TEMP 37.1; O2SAT 98
[2024-01-28] MEDS: Acetaminophen 325 MG TABLET 650 MG PO (15:16)
[2024-01-28] MEDS: Zoledronic Acid/Mannitol-Water 5 MG/100 ML PGGYBK.BTL IV (15:17)
== END 2024-01-31 08:55 | disposition home or self-care (01) ==
LOC: HO.INF 14:49
PROVIDERS: Visit Provider Student in an Organized Health Care Education/Training Program
DX: M81.0 Age-related osteoporosis without current pathological fracture (principal)
CPT/HCPCS: 96372; J3489

== ENCOUNTER 2024-02-04 11:40 | Outpatient (AMB) | payer MEDICARE, SELFPAY ==
--- NOTE | 2024-02-04 11:42 | MHC.PC.OV ---
Vital Signs 02/04/24 11:45 Height 5 ft 1 in Weight 117 lb 2 oz BMI 22.1 BP 122/68 Blood Pressure Location Lt brachial Position Sitting Respiration 16 Pulse 98 Pulse Source Pulse Oximeter Temp 97.7 F Temp Source Oral Pulse Oximetry (%) 96 Oxygen Delivery Method Room Air Intake Visit Reasons: 2 mos CINDY Intake Note: patient here for 2 month follow up on CINDY Component Design Engineer Required: No Is last menstrual period known: No Post menopausal: No Patient : No Allergies oxycodone [From OxyContin] Allergy (Mild, Verified 02/04/24 12:08) Hives Tobacco use date assessed: 02/04/24 Fall risk assessment: No Falls in past year Last assessed Fall Risk: 02/04/24 Dental Screening Dental Screen Date: 02/04/24 Did you have a dental visit in the last 12 months?: No Did you have a dental problem in the last 6 months where you did not have access to dental care?: No Was dental information given to patient?: No HPI HPI Comments History of Present Illness Details 78-year-old female presents for iron-deficiency anemia follow-up She admits to taking her medications as prescribed without adverse reactions She offers no complaints and denies acute symptoms at this time She is currently followed by [facility] [place] [facility] Medical History 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 Mesfin Singh, Raiza Ortega, Naga Das and colleagues, with an educational silvestre from [employer]. Review of Systems Const Details: Const Denies chills, Denies fatigue, Denies fever(s), Denies headache(s) and Denies weakness ENT Denies dizziness and Denies headache(s) Card Denies chest pain, Denies lightheadedness, Denies dyspnea and Denies other (Palpitations) Resp Denies cough, Denies dyspnea, Denies wheezing and Denies other ( shortness of breath) GI Denies abdominal pain, Denies melena, Denies hematochezia, Denies change in bowel habits, Denies dyspepsia and Denies nausea Denies hematuria and Denies dysuria Musc Denies abnormal gait, Denies myalgias, Denies arthralgias, Denies numbness and Denies tingling Skin/Breast Denies rash, Denies unusual bruising and Denies wounds Neuro Denies abnormal gait, Denies dizziness, Denies headache(s), Denies memory loss, Denies numbness, Denies Sensory deficit (Neuro), Denies tingling and Denies weakness Endo Denies cold intolerance, Denies fatigue, Denies heat intolerance, Denies polydipsia and Denies polyuria Aller/Immun Denies wheezing Physical exam (Primary Care) Vital Signs: Last Vital Signs Temp 97.7 F 02/04/24 11:45 Pulse 98 02/04/24 11:45 Resp 16 02/04/24 11:45 BP 122/68 02/04/24 11:45 Pulse Ox 96 02/04/24 11:45 Oxygen Delivery Method Room Air 02/04/24 11:45 BMI result Body Mass Index 22.1 Tobacco/Smoking Status: Tobacco use Status Tobacco use date assessed 02/04/24 02/04/24 11:48 Patient Tobacco Use Status Current everyday Tobacco 02/04/24 11:43 Tobacco use type Cigarette 02/04/24 11:43 e-Cigarette/Vaping Use Never Used 02/04/24 11:43 Thrive Assessment: Date of Thrive Assessment Date Thrive assessed 03/30/23 02/04/24 11:43 Const Other: General: no acute distress and well developed Nutritional Appearance: well nourished Orientation/consciousness: patient oriented x3 [facility] [place] Head: Yes normocephalic and Yes atraumatic Eyes General: appearance normal, both eyes and all related structures Pupils: Equal, round and reactive pupils present EOM: EOMs intact bilaterally Resp Effort & Inspection: normal respiratory effort Auscultation: Wheezing to auscultation bilaterally Cardio Rate: regular rate Rhythm: regular rhythm Heart sounds: S1 normal heart sound present, S2 normal heart sound present, no gallops, no murmurs and no rubs GI Palpation (GI): No Abdominal aortic bruit present, Soft to palpation, nontender, No hepatosplenomegaly present and No Rebound tenderness present Auscultation: normal bowel sounds General: Yes no CVA tenderness Back/Spine/Pelvis Back: no CVA tenderness Cervical Spine: cervical ROM normal and No Cervical spine tenderness Thoracic/Lumbar Spine: thoraco-lumbar ROM normal, No pain with thoraco-lumbar ROM, No thoracic spinal tenderness and No lumbar spinal tenderness Extrem General: Yes normal to inspection, No edema and No calf tenderness Skin General: warm and dry. Normal skin color. Normal skin turgor Neuro General: patient oriented x3, gait normal and no focal neuro deficit Cranial nerves: Yes Equal, round and reactive pupils present Cognition (Neuro): normal cognition Gait exam (Neuro): Normal gait present Sensory Exam: No Sensory deficit (Neuro) Psych Appearance: grossly normal Affect: normal affect Attitude: cooperative Thought process: Normal thought process present Assessment and Plan Assessment & Plan (1) Microcytic hypochromic anemia: Code(s): D50.9 - Iron deficiency anemia, unspecified Plan: Recent H&H is 11.2/36.0 Recent iron studies: 37/349/03/26 Continue current treatment regimen Follow-up with Hematology/Oncology as planned Encouraged to get urine lab work done before her next visit Follow-up in 2 months for an extended physical exam or sooner with symptoms or concerns Verbalized understanding and agreed with the plan (2) Hypertension: Code(s): I10 - Essential (primary) hypertension Qualifiers: Hypertension type: primary hypertension Qualified Code(s): I10 - Essential (primary) hypertension Plan: Blood pressure is controlled, 122/68 Continue current treatment regimen Low-sodium diet encouraged Follow-up in 2 months Verbalized understanding and agreed with treatment plan (3) Wheezing: Code(s): R06.2 - Wheezing Plan: Inspiratory and expiratory wheezing No dyspnea or breathing issue Likely due to chronic smoking. Smoking cessation encouraged. She may notify her PCP if she needs medication treatment for smoking cessation Verbalized understanding and agreed with the plan Orders: Orders Microalbumin, Random (w Creat) Today Z00.00 - Encounter for general adult medical examination without abnormal findings UA CC w/rflx Micro + Cult Today Z00.00 - Encounter for general adult medical examination without abnormal findings Coding Level of Care Code New Pt Level 3 (28913) Diagnoses Microcytic hypochromic anemia D50.9 Primary hypertension I10 Hypertension type: primary hypertension Wheezing R06.2
[2024-02-04 11:45] VITALS: BP 122/68; PULSE 98; RESP 16; TEMP 36.5; O2SAT 96; BMI 22.1
== END 2024-02-04 12:19 | disposition home or self-care (01) ==
PROVIDERS: PCP Nurse Practitioner Family; Visit Provider Nurse Practitioner Family
DX: D50.9 Iron deficiency anemia, unspecified (principal); I10 Essential (primary) hypertension; R06.2 Wheezing

== ENCOUNTER → 2024-02-04 11:40 | Outpatient (BNVA) | payer MEDICARE, SELFPAY | PROVIDERS: PCP Nurse Practitioner Family; Visit Provider Nurse Practitioner Family | DX: D50.9 Iron deficiency anemia, unspecified (principal); R06.2 Wheezing; I10 Essential (primary) hypertension | CPT/HCPCS: 99202 ==

== ENCOUNTER 2024-03-29 08:09 | Outpatient (REF) | payer MEDICARE, SELFPAY ==
[2024-03-29 08:32] LABS: MANUAL DIFF FLAG NO
[2024-03-29 09:00] LABS: Basophils Percent Auto 0.4 % (0-2); Eosinophils Absolute Auto 0.1 X10*3/uL (0.0-0.4); Hematocrit 31.8 % (37.0-47.0); Hemoglobin 9.9 g/dl (12.0-16.0); Imm Gran Abs Auto 0.03 X10*3/uL (0.00-0.03); Imm Gran Pct Auto 0.4 % (0.0-0.4); Lymphocytes Absolute Auto 1.2 X10*3/uL (1.2-4.9); Lymphocytes Percent Auto 15.7 % (20-40); Mean Corpuscular HGB Conc 31.1 g/dl (31.0-35.0); Mean Corpuscular Hemoglobin 24.9 pg (27.0-33.0); Mean Corpuscular Volume 79.9 fL (80.0-98.0); Mean Platelet Volume 8.9 fL (9.4-12.3); Monocytes Absolute Auto 0.7 X10*3/uL (0.1-1.2); Monocytes Percent Auto 9.2 % (2-11); Neutrophils Absolute Auto 5.6 x10*3/uL (2.0-8.3); Neutrophils Percent Auto 73.3 % (45-73); Platelet Count 633 X10*3/uL (160-400); Red Blood Count 3.98 X10*6/uL (4.20-5.50); Red Cell Distribution Width 18.6 % (11.0-16.0); White Blood Count 7.7 X10*3/uL (4.8-10.8)
[2024-03-29 09:37] LABS: Alanine Aminotransferase 10 U/L (0-31); Albumin Level 3.8 g/dL (3.5-5.0); Alkaline Phosphatase 63 U/L (39-117); Anion Gap 12 (12-20); Aspartate Amino Transferase 17 U/L (5-31); Bilirubin Total 0.4 mg/dL (0.0-1.0); Blood Urea Nitrogen 14 mg/dL (9-16); Calcium 9.4 mg/dL (8.4-10.2); Carbon Dioxide 27 mmol/L (22-29); Chloride 104 mmol/L (96-108); Estimated Glomerular Filt Rate > 60; Glucose Random 97 mg/dL (60-115); Potassium 4.5 mmol/L (3.3-5.1); Sodium 138 mmol/L (135-145); Total Protein 7.4 g/dL (6.5-8.0)
[2024-03-29 09:48] LABS: Erythrocyte Sedimentation Rate 72 MM/HR (0-20)
[2024-04-01 07:52] LABS: TS Negative Control Passed; TS Panel A 1; TS Panel B 1; TS Positive Control Passed; TSpotTB Negative (Negative)
== END 2024-03-29 08:10 | disposition home or self-care (01) ==
LOC: HO.LAB 08:09
PROVIDERS: PCP Nurse Practitioner Family; Visit Provider Student in an Organized Health Care Education/Training Program
DX: M05.79 Rheumatoid arthritis with rheumatoid factor of multiple sites without organ or systems involvement (principal); Z11.7 Encounter for testing for latent tuberculosis infection; D50.9 Iron deficiency anemia, unspecified
CPT/HCPCS: 36415; 80053; 85025; 85027; 85652; 86140; 86481

== ENCOUNTER 2024-04-10 14:38 | Outpatient (AMB) | payer MEDICARE, SELFPAY ==
--- NOTE | 2024-04-10 14:38 | MHC.OFFVIS ---
Vital Signs 04/10/24 14:42 Height 5 ft 1 in Weight 113 lb 12.136 oz BMI 21.5 BP 122/68 Blood Pressure Location Rt brachial Position Sitting Respiration 16 Pulse 93 Pulse Source Pulse Oximeter Pulse Oximetry (%) 99 Oxygen Delivery Method Room Air Intake Visit Reasons: RA/LM Intake Note: Patient presents for RA. Allergies oxycodone [From OxyContin] Allergy (Mild, Verified 04/10/24 14:41) Hives Medication List - Last Reconciled 04/10/24 by Kirstin Linton MD acetaminophen 650 mg (2 x 325 mg) PO Q6H PRN albuterol sulfate 90 mcg/actuation 2 puffs inhalation Q4-6H PRN 1 month amlodipine 5 mg PO DAILY 30 days blood pressure monitor check bp twice a week and when not feeling well cetirizine (Zyrtec) 10 mg PO DAILY 30 days cyanocobalamin (vitamin B-12) 1,000 mcg sublingual DAILY ferrous sulfate (Feosol) 325 mg PO DAILY 30 days folic acid 1 mg PO DAILY hydroxychloroquine 200 mg PO DAILY ipratropium-albuterol 20-100 mcg/actuation (Combivent Respimat) 1 puff inhalation QID omeprazole 20 mg PO DAILY pravastatin 40 mg PO DAILY 90 days ropinirole 2 mg (2 x 1 mg) PO TID HPI Comments Details: 78-year-old female with seropositive RA returns for follow-up. States that she has not been doing well. She states that her right knee pain is improved. She is now able to walk but the right knee remains swollen. She has been having right hand and wrist pain and swelling recently. She states that she had a mild flu-like infection to 3 weeks ago. She has recovered. Initial history: This is a 77-year-old female with hypertension, COPD, chronic smoker, GI bleeding (? Acquired bowel telangiectasias) currently on iron infusions who presents for evaluation of rheumatoid arthritis. She was apparently diagnosed with rheumatoid arthritis more than 10 years ago (+++ve RF & +++CCP) she initially saw Dr. Jenkins and was seeing Bradford Spears most recently. She stated that she was always on methotrexate 4 tabs weekly. There has been no change in medicines. She currently denies any joint pain, stiffness or swelling. She presented to the hospital 2 weeks ago and was found to have a swollen knee, right knee arthrocentesis showed significantly elevated white count and intracellular CPPD crystals consistent with pseudogout. Patient states she gets intermittent flares of knee swelling every 6 months or so. 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 Current occupational exposures/hazards: No Cognitive needs: No Hearing needs: No Vision needs: Yes Review of Systems Musc Reports arthralgias, Reports joint swelling, Reports limited range of motion and Reports stiffness Physical Exam Vital Signs: Last Vital Signs Pulse 93 04/10/24 14:42 Resp 16 04/10/24 14:42 BP 122/68 04/10/24 14:42 Pulse Ox 99 04/10/24 14:42 Oxygen Delivery Method Room Air 04/10/24 14:42 BMI result Body Mass Index 21.5 Const General: cooperative, comfortable and no acute distress HEENT Head: Yes normocephalic and Yes atraumatic Resp Effort & Inspection: normal respiratory effort and able to speak in complete sentences Auscultation: rhonchi Cardio Rate: regular rate Rhythm: regular rhythm Skin General skin exam: pallor Rashes: no rashes Extrem Other: Right wrist swelling, warmth, tenderness and pain with flexion and extension Significant right knee swelling, tenderness and pain with any range of motion Assessment & Plan Assessment & Plan (1) Rheumatoid arthritis: Comment: +++CCP +++RF dx around 2011 on MTX throughout (partially effective). DC in 2023 HCQ 12/2022 minimally effective Code(s): M06.9 - Rheumatoid arthritis, unspecified Category: Medical Qualifiers: Rheumatoid arthritis location: multiple sites Rheumatoid factor presence: with rheumatoid factor Qualified Code(s): M05.79 - Rheumatoid arthritis with rheumatoid factor of multiple sites without organ or systems involvement Plan: This is a 79-year-old female with seropositive RA who presents for follow-up. She remains on hydroxychloroquine 200 mg daily. She continues to have active disease. She has multiple swollen and tender joints on exam. Inflammatory markers significantly elevated. Methotrexate was not effective in the past. We will need to add DMARDs. Discussed biologic DMARDs. Given patient's continued smoking and increased risk of respiratory infections, Orencia may be a safer biologic DMARD then TNF inhibitors. Risk of hospitalized infection has been shown to be lower with Orencia compared to TNF inhibitors. PMID:?[id number] Discussed risks and benefits of Orencia. Patient agreed to proceed. Patient states that she will have new insurance, [employer] in the beginning of the year. Advised patient to call the clinic and let us know and we will start prior authorization for Orencia Prednisone taper for relief Continue hydroxychloroquine at 200 mg daily Labs before next visit in 3 months (2) Osteoporosis: Comment: DEXA 05/2021 L-spine T-score-3.2 Left forearm T-score-3.6 Left femoral neck T-score-4.1 Left total hip T-score -3.8 Reclast 10/30 and 01/2024 Code(s): M81.0 - Age-related osteoporosis without current pathological fracture Category: Medical Qualifiers: Osteoporosis type: age-related Presence of current pathological fracture: unspecified Qualified Code(s): M81.0 - Age-related osteoporosis without current pathological fracture Plan: Severe osteoporosis. She received 2 doses of Reclast, last of which was 01/2024. Repeat DEXA summer 2024 (3) Pseudogout of knee: Code(s): M11.269 - Other chondrocalcinosis, unspecified knee Category: Medical Qualifiers: Laterality: right Qualified Code(s): M11.261 - Other chondrocalcinosis, right knee Plan: in 03/31 when patient presented to the ED she had right knee effusion, synovial fluid showed 45,000 cells with positive CPPD crystals. No evidence of infection. Picture consistent with pseudogout at that time Last visit patient had significant right knee pain and swelling, could not walk. I injected her right knee with improvement, she is now able to walk but it remains swollen, mostly posteriorly. I will order ultrasound-guided aspiration and injection (4) Nicotine dependence: Code(s): F17.200 - Nicotine dependence, unspecified, uncomplicated Category: Medical Qualifiers: Nicotine product type: cigarettes Plan: Long-term smoker. Continues to smoke. Discussed ill effects of smoking on health and association with increased rheumatoid arthritis activity. Counseled patient to quit or at least cut down (5) Long-term use of hydroxychloroquine: Code(s): Z79.899 - Other care home (current) drug therapy Category: Medical Plan: Follow-up regularly with priming powder premix blender Plan I spent 31 minutes reviewing patient's chart, evaluating patient, ordering diagnostic workup, counseling patient and documenting in the chart Orders: Orders Complete Blood Count Auto Diff 3 Months M05.79 - Rheumatoid arthritis with rheumatoid factor of multiple sites without organ or systems involvement, Z79.899 - Other care home (current) drug therapy Erythrocyte Sedimentation Rate 3 Months M05.79 - Rheumatoid arthritis with rheumatoid factor of multiple sites without organ or systems involvement, Z79.899 - Other care home (current) drug therapy US guided asp or inj major jt Today M05.79 - Rheumatoid arthritis with rheumatoid factor of multiple sites without organ or systems involvement Comprehensive Met. Panel 3 Months M05.79 - Rheumatoid arthritis with rheumatoid factor of multiple sites without organ or systems involvement, Z79.899 - Other middle or intermediate school principal (current) drug therapy C Reactive Protein 3 Months M05.79 - Rheumatoid arthritis with rheumatoid factor of multiple sites without organ or systems involvement, Z79.899 - Other middle or intermediate school principal (current) drug therapy Medications: New prednisone take 3 tabs daily for 1 week then 2 tabs daily for 1 week then 1 tab daily for 1 week then stop 42 tabs 0RF Coding Level of Care Code Est Pt Level 4 (36022) Complex EM visit Add On G2211 Diagnoses Rheumatoid arthritis involving multiple sites with positive rheumatoid factor M05.79 Rheumatoid arthritis location: multiple sites Rheumatoid factor presence: with rheumatoid factor Age related osteoporosis, unspecified pathological fracture presence M81.0 Osteoporosis type: age-related Presence of current pathological fracture: unspecified Pseudogout of right knee M11.261 Laterality: right Nicotine dependence F17.200 Nicotine product type: cigarettes Long-term use of hydroxychloroquine Z79.899
[2024-04-10 14:42] VITALS: BP 122/68; PULSE 93; RESP 16; O2SAT 99; BMI 21.5
== END 2024-04-10 15:07 | disposition home or self-care (01) ==
PROVIDERS: PCP Nurse Practitioner Family; Visit Provider Student in an Organized Health Care Education/Training Program
DX: M05.79 Rheumatoid arthritis with rheumatoid factor of multiple sites without organ or systems involvement (principal); M81.0 Age-related osteoporosis without current pathological fracture; M11.261 Other chondrocalcinosis, right knee; F17.200 Nicotine dependence, unspecified, uncomplicated; Z79.899 Other long term (current) drug therapy
CPT/HCPCS: 99214; G2211

== ENCOUNTER → 2024-04-10 14:38 | Outpatient (BNVA) | payer MEDICARE, SELFPAY | PROVIDERS: PCP Nurse Practitioner Family; Visit Provider Student in an Organized Health Care Education/Training Program | DX: M05.79 Rheumatoid arthritis with rheumatoid factor of multiple sites without organ or systems involvement (principal); M81.0 Age-related osteoporosis without current pathological fracture; M11.261 Other chondrocalcinosis, right knee; F17.200 Nicotine dependence, unspecified, uncomplicated; Z79.899 Other long term (current) drug therapy | CPT/HCPCS: 99212 ==

== ENCOUNTER 2024-05-19 08:36 | Outpatient (REF) | payer MEDICARE, SELFPAY ==
[2024-05-19] MEDS: Triamcinolone Acetonide 40 MG/ML VIAL INTRAARTIC (10:16)
[2024-05-19] MEDS: Lidocaine HCl 2 % MPF 5 ML VIAL SUBCUT (10:18)
[2024-05-19 11:22] LABS: MN% 24.4 %; PMN% 75.6 %
[2024-05-19 11:36] LABS: RBC Synovial Fluid < 0.002 X10*6/uL; WBC Synovial Fluid 17.325 X10*3/uL
[2024-05-19 13:28] LABS: Source Synovial Fluid RIGHT KNEE
[2024-05-19 13:38] LABS: BF Shift QC OK YES; Lymphocytes Synovial Fluid 12 %; Man Diluent Bkgrd OK YES; Monocytes Synovial Fluid 1 %; Neutrophils Synovial Fluid 81 %; Other Cells Synovial Fluid 6
== END 2024-05-19 08:37 | disposition home or self-care (01) ==
LOC: HO.US 08:36
PROVIDERS: Student in an Organized Health Care Education/Training Program; PCP Nurse Practitioner Family; Visit Provider Student in an Organized Health Care Education/Training Program
DX: M05.79 Rheumatoid arthritis with rheumatoid factor of multiple sites without organ or systems involvement (principal); M11.261 Other chondrocalcinosis, right knee; R60.0 Localized edema
CPT/HCPCS: 20611; 89051; J2003; J3301

== ENCOUNTER 2024-05-19 09:56 | Outpatient (REF) | payer MEDICARE, SELFPAY ==
--- NOTE | 2024-05-19 10:27 | PM.PROC ---
Brief Operative Note Date of procedure: 05/19/24 Pre-op diagnosis: Rheumatoid arthritis, Right knee OA Post-op diagnosis: same Procedure: Date: 05/19/2023 Study Type: Complete Ultrasound with Guidance of needle placement Indication: Right knee pain Study Site: Right knee Equipment: Hu, L12-5 linear probe Brief History: Patient is a 78 y.o. with seropositive RA current on HCQ. Presenting with recurrent right knee pain and swelling Relevant meds: ?HCQ 200mg bid, prednisone taper Relevant labs: Laboratory Tests 03/29/24 08:30 ESR 72 H C-Reactive Protein 2.80 H XR Images reviewed: Right Knee XR 03/23/22 Findings: ?Orthogonal views of the suprapatellar, infrapatellar, medial, lateral and posterior right knee were obtained in grayscale and Doppler. The suprapatellar area of the knee was visualized. There were several small pockets of fluid noted in the suprapatellar space. This was confirmed in the transverse view. The quadriceps tendon was intact. The patella was also intact. The infrapatellar area of the knee was visualized. The insertion of the patellar ligament on the patella as well as the tibia were intact without any evidence of inflammation or tearing to the tendon fibers. The medial collateral ligament and medial meniscus were both intact. The lateral meniscus appeared to be extruded with no obvious intact lateral collateral ligament. The posterior knee did not show any evidence of Bray's cyst. Suprapatellar max flex did not show any evidence of double contour or pseudo double contour sign. Procedure: Procedure was explained to the patient and consent was obtained. ? The area of interest was identified with the ultrasound. ?This was subsequently cleaned with chlorprep x 2 The area was then anesthetized using ethyl chloride spray. 1cc straw colored fluid removed 40 mg Kenalog with 1 cc 2% lidocaine was injected without issue. ?Minimal to no bleeding. ?Patient tolerated procedure. Impressions: ? Tendinopathy involving the lateral collateral ligament and lateral meniscus Successful aspiration and injection of the right suprapatellar space under ultrasound guidance Anesthesia: local Pathology: other (Fluid sent for cell count) Condition: stable Disposition: same day
== END 2024-05-19 09:57 | disposition home or self-care (01) ==
LOC: HO.LAB 09:56
PROVIDERS: Visit Provider Student in an Organized Health Care Education/Training Program
DX: Z13.89 Encounter for screening for other disorder (principal)

== ENCOUNTER → 2024-05-19 09:56 | Outpatient (BNV) | payer MEDICARE, SELFPAY | PROVIDERS: Visit Provider Student in an Organized Health Care Education/Training Program | DX: M17.11 Unilateral primary osteoarthritis, right knee (principal) | CPT/HCPCS: 76942 ==

== ENCOUNTER 2024-05-22 14:28 | Outpatient (AMB) | payer OTHER, SELFPAY ==
--- NOTE | 2024-05-22 14:30 | MHC.PC.OV ---
Vital Signs 05/22/24 14:33 Height 5 ft 1 in Weight 114 lb 8 oz BMI 21.6 BP 156/72 H Blood Pressure Location Lt brachial Position Sitting Pulse 94 Pulse Source Pulse Oximeter Pulse Oximetry (%) 99 Oxygen Delivery Method Room Air Intake Visit Reasons: RAEGAN DR Waldrop [employer] Required: No Accompanied by: Self / Same As Patient Allergies oxycodone [From OxyContin] Allergy (Mild, Verified 05/22/24 14:49) Hives Primeperole Allergy (Mild, Uncoded 05/22/24 14:49) Hives & Swollen legs Medication List - Last Reconciled 05/22/24 by Burke Vazquez PA-C acetaminophen 650 mg (2 x 325 mg) PO Q6H PRN albuterol sulfate 90 mcg/actuation 2 puffs inhalation Q4-6H PRN 1 month amlodipine 5 mg PO DAILY 30 days blood pressure monitor check bp twice a week and when not feeling well cetirizine (Zyrtec) 10 mg PO DAILY 30 days cyanocobalamin (vitamin B-12) 1,000 mcg sublingual DAILY ferrous sulfate (Feosol) 325 mg PO DAILY 30 days folic acid 1 mg PO DAILY hydroxychloroquine 200 mg PO DAILY ipratropium-albuterol 20-100 mcg/actuation (Combivent Respimat) 1 puff inhalation QID omeprazole 20 mg PO DAILY pravastatin 40 mg PO DAILY 90 days ropinirole 2 mg (2 x 1 mg) PO TID Tobacco use date assessed: 05/22/24 Dental Screening Dental Screen Date: 02/04/[address] Waldrop HPI Details Patient is a 79-year-old female here today for a transfer of care visit. Previous PCP with a [facility] office.. Patient has a past medical history significant for tobacco use disorder microcytic anemia, hyperlipidemia rheumatoid arthritis with long-term use of hydroxychloroquine, restless leg syndrome and COPD. .. 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 1. Little interest or pleasure in doing things: not at all 2. Feeling down, depressed, or hopeless: not at all 3. Trouble falling or staying asleep, or sleeping too much: not at all 4. Feeling tired or having little energy: not at all 5. Poor appetite or overeating: not at all 6. Feeling bad about yourself - or that you are a failure or have let yourself or your family down: not at all 7. Trouble concentrating on things, such as reading the newspaper or watching television: not at all 8. Moving or speaking so slowly that other people could have noticed. Or the opposite - being so fidgety or restless that you have been moving around a lot more than usual: not at all 9. Thoughts that you would be better off or of hurting yourself in some way: not at all Total score: 0 Depression Screening Interpretation: Negative Depression Screening Done: Yes 55873 - PHQ-9 Billing: Yes Source: Developed by Drs. Mesfin Singh, Raiza Ortega, Naga Das and colleagues, with an educational silvestre from [email or web address]. Thrive Questionnaire Date Thrive assessed: 05/22/24 I am a: Patient What is your living situation today?: I have a steady place to live Within the past 12 months, did the food you bought not last and you didn't have the money to get more?: Never true Within the past 12 months, did you worry whether your food would run out before you got money to buy more?: Never true Do you have trouble paying for medicines?: No Do you have trouble getting transportation to medical appointments?: No Do you have trouble paying your heating and electricity bill?: No Do you have trouble taking care of your child, family member or friend?: No Do you have trouble with day-to-day activities such as bathing, preparing meals, shopping, managing finances, etc.?: No Are you currently unemployed and looking for a job?: No Are you interested in more education?: No Please select the resources that you would like help with: None Currently or been in a relationship where the following occur: No concerns reported THRIVE Score: 0 AUDIT C Alcohol Use Questionnaire (AUDIT-C) 1. How often do you have a drink containing alcohol?: Never 3. How often do you have six or more drinks on one occasion?: Never Total Score: 0 MARVA-7 AMB Questionnaire MARVA-7 Date MARVA - 7 assessed: 05/22/24 Feeling nervous, anxious, or on edge: 0 = Not at all Not being able to stop or control worryin = Not at all Worrying too much about different things: 0 = Not at all Trouble relaxin = Not at all Being so restless that it is hard to sit still: 0 = Not at all Becoming easily annoyed or irritable: 0 = Not at all Feeling afraid as if something awful might happen: 0 = Not at all Total MARVA-7 score (0-4 normal; 5-9 mild; 10-14 moderate; 15-21 severe): 0 Source: Developed by Drs. Mesfin Singh, Raiza Ortega, Naga Das and colleagues, with an educational silvestre from [email or web address]. MARVA-7 Assessment Billing MARVA-7 Assessment Tool: MARVA-7 Assessment 43851 Review of Systems Const Denies headache(s) Eyes Denies loss of vision ENT Denies vertigo, Denies dizziness, Denies headache(s) and Denies sore throat Card Denies chest pain, Denies leg edema and Denies lightheadedness Resp Denies cough, Denies hemoptysis and Denies wheezing GI Denies abdominal pain, Denies melena, Denies constipation, Denies diarrhea and Denies vomiting Denies urinary frequency, Denies dysuria and Denies urinary urgency Musc Denies arthralgias, Denies joint swelling, Denies numbness and Denies tingling Neuro Denies Abnormal speech present, Denies behavioral changes, Denies vertigo, Denies dizziness, Denies headache(s), Denies loss of vision, Denies memory loss, Denies numbness and Denies tingling Psych Denies anxiety, Denies behavioral changes, Denies depression, Denies memory loss and Denies panic attacks Lenin/Lymph Denies easy bleeding and Denies easy bruising Aller/Immun Denies wheezing Physical exam (Primary Care) Vital Signs: Last Vital Signs Pulse 94 05/22/24 14:33 BP 156/72 H 05/22/24 14:33 Pulse Ox 99 05/22/24 14:33 Oxygen Delivery Method Room Air 05/22/24 14:33 BMI result Body Mass Index 21.6 Tobacco/Smoking Status: Tobacco use Status Tobacco use date assessed 05/22/24 05/22/24 14:48 Patient Tobacco Use Status Current everyday Tobacco 05/22/24 14:30 Tobacco use type Cigarette 05/22/24 14:30 e-Cigarette/Vaping Use Never Used 05/22/24 14:30 Tobacco cessation counseling provided: Yes Items discussed: Nicotine replacement Relapse Prevention: discussed the importance of a supportive environment, discussed negative mood or depression after quitting, weight gain after smoking is common and discussed dietary, exercise and/or lifestyle changes Number of minutes spent counselin CPT code: 58827 - 4-10 Minutes PHQ-9: PHQ-9 Score PHQ-9: Total score 0 05/22/24 14:48 Depression Screening Interpretation: Negative Thrive Assessment: Date of Thrive Assessment Date Thrive assessed 05/22/24 05/22/24 14:48 Currently or been in a relationship where the following occur: No concerns reported Const General: healthy appearing, no acute distress, alert and awake Nutritional Appearance: well nourished Orientation/consciousness: oriented to person, oriented to place and oriented to time HENMT Ears: TM's normal bilaterally General nose exam: Normal nasal mucous membranes and turbinates present Eyes Conjunctivae: conjunctivae normal Sclerae: sclerae normal Pupils: Equal, round and reactive pupils present Neck Neck: Yes no lymphadenopathy and Yes no JVD Thyroid: Thyroid normal Carotids: no bruits Resp Effort & Inspection: normal respiratory effort and not tachypneic Auscultation: no crackles, no rales, no rhonchi and no wheezes Cardio Rate: regular rate Rhythm: regular rhythm Heart sounds: no murmurs and normal S1 and S2 GI Palpation (GI): Soft to palpation, nontender, no hepatomegaly and no splenomegaly Auscultation: normal bowel sounds Skin General skin exam: no rashes or lesions noted and dry skin Neuro General: oriented to person, oriented to place and oriented to time Cranial nerves: Yes Equal, round and reactive pupils present Speech: No Abnormal speech present Gait exam (Neuro): Normal gait present Motor exam (neuro): no tremor noted Extrem Right upper extremity: full ROM Left upper extremity: full ROM Right lower extremity: full ROM; no edema Left lower extremity: full ROM; no edema Psych Mental Status: mental status grossly normal Speech and movement: Normal speech and movement present Affect: normal affect Attitude: cooperative Thought process: Normal thought process present Coding Level of Care Code Est Pt Level 4 (35923) Diagnoses Mixed hyperlipidemia E78.2 Hyperlipidemia type: mixed hyperlipidemia Centrilobular emphysema J43.2 COPD type: emphysema Emphysema type: centrilobular Iron deficiency anemia, unspecified iron deficiency anemia type D50.9 Anemia type: iron deficiency Iron deficiency anemia type: unspecified iron deficiency Primary hypertension I10 Hypertension type: primary hypertension Iron deficiency anemia, unspecified iron deficiency anemia type D50.9 Iron deficiency anemia type: unspecified iron deficiency Cigarette nicotine dependence without complication F17.210 Nicotine product type: cigarettes Substance use status: uncomplicated Rheumatoid arthritis involving multiple sites with positive rheumatoid factor M05.79 Rheumatoid arthritis location: multiple sites Rheumatoid factor presence: with rheumatoid factor Additional Codes MARVA-7 Assessment Billing - MARVA-7 Assessment Tool: MARVA-7 Assessment 36094 ([id number]) PHQ-9 - 60510 - PHQ-9 Billing: Yes ([id number]) Vital Signs *Quality* - CPT code: 82480 - 4-10 Minutes ([id number]) Assessment & Plan Assessment & Plan (1) Hyperlipidemia: Code(s): E78.5 - Hyperlipidemia, unspecified Category: Medical Qualifiers: Hyperlipidemia type: mixed hyperlipidemia Qualified Code(s): E78.2 - Mixed hyperlipidemia Plan: Patient continues on statin therapy. She reports she has never fasting for labs before. Advised to do fasting labs to ensure appropriate total cholesterol and LDL. Goal LDL to be below 130 (2) COPD (chronic obstructive pulmonary disease): Comment: Smoker, strong tobacco Code(s): J44.9 - Chronic obstructive pulmonary disease, unspecified Category: Medical Qualifiers: COPD type: emphysema Emphysema type: centrilobular Qualified Code(s): J43.2 - Centrilobular emphysema Plan: Patient reports her breathing has been fairly stable. Does use her albuterol inhaler at times. She denies using a maintenance inhaler. Unfortunately continues to smoke and has no thoughts about quitting. Offered her nicotine replacement though she declines at this time. We did discuss perhaps going to see lung cancer screening program though she declines at this time. (3) Anemia: Code(s): D64.9 - Anemia, unspecified Category: Medical Qualifiers: Anemia type: iron deficiency Iron deficiency anemia type: unspecified iron deficiency Qualified Code(s): D50.9 - Iron deficiency anemia, unspecified Plan: Unclear etiology to patient's anemia though seems to be microcytic. Should any overt blood loss. Will recheck iron labs. Apparently has had GI workup in the past and had an abnormal colonoscopy. Will continue to recommend repeat colonoscopy (4) Hypertension: Code(s): I10 - Essential (primary) hypertension Category: Medical Qualifiers: Hypertension type: primary hypertension Qualified Code(s): I10 - Essential (primary) hypertension Plan: Patient's blood pressure elevated today in office. Does not monitor her blood pressure at home. (5) Iron deficiency anemia: Code(s): D50.9 - Iron deficiency anemia, unspecified Category: Medical Qualifiers: Iron deficiency anemia type: unspecified iron deficiency Qualified Code(s): D50.9 - Iron deficiency anemia, unspecified Plan: As per HPI unclear etiology to patient's anemia though could be an anemia of chronic disease such as COPD and hypertension. Apparently had an abnormal colonoscopy though is not interested in getting any colonoscopy at this time. Will continue to follow CBC, iron and vitamin level. (6) Nicotine dependence: Code(s): F17.200 - Nicotine dependence, unspecified, uncomplicated Category: Medical Qualifiers: Nicotine product type: cigarettes Substance use status: uncomplicated Qualified Code(s): F17.210 - Nicotine dependence, cigarettes, uncomplicated Plan: As per HPI patient continues to smoke a few cigarettes per day. Not interested in quitting smoking at this time. Offered her nicotine replacement though she declines. (7) Rheumatoid arthritis: Comment: +++CCP +++RF dx around 2011 on MTX throughout (partially effective). DC in 2023 HCQ 12/2022 minimally effective Code(s): M06.9 - Rheumatoid arthritis, unspecified Category: Medical Qualifiers: Rheumatoid arthritis location: multiple sites Rheumatoid factor presence: with rheumatoid factor Qualified Code(s): M05.79 - Rheumatoid arthritis with rheumatoid factor of multiple sites without organ or systems involvement Plan: Patient followed by [facility]. Continues on half-way hydroxychloroquine use and p.r.n. use of Tylenol. Orders: Orders Ferritin Today D64.9 - Anemia, unspecified Microalbumin, Random (w Creat) Today I10 - Essential (primary) hypertension IRON PROFILE Today D50.9 - Iron deficiency anemia, unspecified, D64.9 - Anemia, unspecified Comprehensive Branch. Panel Fast Today I10 - Essential (primary) hypertension Vitamin B12 and Folate Today D64.9 - Anemia, unspecified, E53.8 - Deficiency of other specified B group vitamins Lipid Panel Today E78.5 - Hyperlipidemia, unspecified Complete Blood Count no Diff Today D50.9 - Iron deficiency anemia, unspecified Medications: Changed From ferrous sulfate (Feosol) 325 mg PO DAILY 30 days 30 tabs 2RF D50.9 - Iron deficiency anemia, unspecified To ferrous sulfate (Feosol) 325 mg PO BID 30 days 60 tabs 2RF D50.9 - Iron deficiency anemia, unspecified Refilled folic acid 1 mg PO DAILY 90 tabs 3RF M06.9 - Rheumatoid arthritis, unspecified ferrous sulfate (Feosol) 325 mg PO DAILY 30 days 30 tabs 2RF ropinirole 2 mg (2 x 1 mg) PO TID 90 tabs 1RF G25.81 - Restless legs syndrome blood pressure monitor check bp twice a week and when not feeling well 1 ea 0RF I10 - Essential (primary) hypertension albuterol sulfate 90 mcg/actuation 2 puffs inhalation Q4-6H 1 month PRN 8.5 grams 4RF shortness of breath or wheezing J44.9 - Chronic obstructive pulmonary disease, unspecified amlodipine 5 mg PO DAILY 30 days 30 tabs 3RF cyanocobalamin (vitamin B-12) 1,000 mcg sublingual DAILY 90 ea 4RF omeprazole 20 mg PO DAILY 30 caps 3RF pravastatin 40 mg PO DAILY 90 days 90 tabs 0RF
[2024-05-22 14:33] VITALS: BP 156/72; PULSE 94; O2SAT 99; BMI 21.6
== END 2024-05-22 15:04 | disposition home or self-care (01) ==
PROVIDERS: PCP Nurse Practitioner Family; Visit Provider Physician Assistant
DX: E78.2 Mixed hyperlipidemia (principal); J43.2 Centrilobular emphysema; D50.9 Iron deficiency anemia, unspecified; I10 Essential (primary) hypertension; F17.210 Nicotine dependence, cigarettes, uncomplicated; M05.79 Rheumatoid arthritis with rheumatoid factor of multiple sites without organ or systems involvement

== ENCOUNTER → 2024-05-22 14:28 | Outpatient (BNVA) | payer OTHER, SELFPAY | PROVIDERS: PCP Nurse Practitioner Family; Visit Provider Physician Assistant | DX: E78.2 Mixed hyperlipidemia (principal); J43.2 Centrilobular emphysema; D50.9 Iron deficiency anemia, unspecified; I10 Essential (primary) hypertension; M05.79 Rheumatoid arthritis with rheumatoid factor of multiple sites without organ or systems involvement; F17.210 Nicotine dependence, cigarettes, uncomplicated; Z79.899 Other long term (current) drug therapy | CPT/HCPCS: 96127 ==

== ENCOUNTER → 2024-07-11 13:34 | Outpatient (BNVA) | payer OTHER, SELFPAY | PROVIDERS: PCP Nurse Practitioner Family; Visit Provider Student in an Organized Health Care Education/Training Program ==

== ENCOUNTER 2024-07-11 13:35 | Outpatient (AMB) | payer OTHER, SELFPAY ==
--- NOTE | 2024-07-11 13:36 | MHC.OFFVIS ---
Vital Signs 07/11/24 13:41 Height 5 ft 1 in Weight 110 lb 14.28 oz BMI 21.0 BP 130/74 Blood Pressure Location Rt brachial Position Sitting Pulse 76 Pulse Source Pulse Oximeter Pulse Oximetry (%) 98 Oxygen Delivery Method Room Air Intake Visit Reasons: RA Intake Note: Patient presents for RA follow up. Allergies oxycodone [From OxyContin] Allergy (Mild, Verified 07/11/24 13:41) Hives Primeperole Allergy (Mild, Uncoded 05/22/24 14:49) Hives & Swollen legs Medication List - Last Reconciled 07/11/24 by Jacque Wynne MD acetaminophen 650 mg (2 x 325 mg) PO Q6H PRN albuterol sulfate 90 mcg/actuation 2 puffs inhalation Q4-6H PRN 1 month amlodipine 5 mg PO DAILY 30 days blood pressure monitor check bp twice a week and when not feeling well cetirizine (Zyrtec) 10 mg PO DAILY 30 days cyanocobalamin (vitamin B-12) 1,000 mcg sublingual DAILY ferrous sulfate (Feosol) 325 mg PO BID 30 days folic acid 1 mg PO DAILY hydroxychloroquine 200 mg PO DAILY omeprazole 20 mg PO DAILY pravastatin 40 mg PO DAILY 90 days ropinirole 2 mg (2 x 1 mg) PO TID HPI Comments Details: Patient is a 79-year-old female with hypertension, hyperlipidemia, iron deficiency anemia, osteoporosis, crystal proven CPPD, rheumatoid arthritis and polyarticular osteoarthritis here today for follow up Interval History: Patient last seen 04/10/[address] Linton. At that time she was on Plaquenil however she reported that she was not doing well. Complaining of right knee pain and swelling. She had multiple swollen and tender joints on examination with significantly elevated inflammatory markers. Orencia was added to her medication regimen Since that visit she had an ultrasound procedure 05/19/2024 with me. At that time it showed tendinopathy of her right lateral meniscus and inflammatory fluid was removed and the joint was injected with steroids. Patient did not start the Orencia stating that she never received the medication States that her right knee is better still was also swelling but overall improved Notes that her hands are in a flare currently Rheumatologic History: Seropositive rheumatoid arthritis +++CCP +++RF dx around 2011 on MTX throughout (partially effective). 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 Current occupational exposures/hazards: No Cognitive needs: No Hearing needs: No Vision needs: Yes Review of Systems Const Details: Review of Systems Constitutional: Denies fever, chills, weight loss ENT: Denies vision changes, eye pain or eye redness, dental caries, dry mouth GI: Denies nausea, vomiting, diarrhea, abdominal pain, change in BM Pulm: Denies SOB, PARTIDA, hemoptysis, wheezing Cards: Denies chest pain, palpitations Skin: Denies Raynaud's, rash, nail changes, photosensitivity, [employer]: Denies headaches, weakness, paresthesias, recurrent falls MSK: as per HPI All other systems reviewed and are unremarkable except noted above Physical Exam Vital Signs: Last Vital Signs Pulse 76 07/11/24 13:41 BP 130/74 07/11/24 13:41 Pulse Ox 98 07/11/24 13:41 Oxygen Delivery Method Room Air 07/11/24 13:41 BMI result Body Mass Index 21.0 Vital signs reviewed Physical Examination CONSTITUITIONAL Patient alert and cooperative. Well appearing and in no apparent painful distress HEENT Conjunctiva and sclera clear. ?Pupils equal round and reactive to light. ?No lymphadenopathy. ? CHEST/RESPIRATORY SYSTEM Normal respiratory effort and able to speak in complete sentences. ?Clear to auscultation bilaterally. ?No crackles, rales, rhonchi, wheezes heard. CARDIAC SYSTEM Regular rate and rhythm. ?S1 and S2 heard no murmurs. ?Radial pulses intact bilaterally MSK Hands: ?Right hand with gross swelling and tenderness to palpation of MCPs and PIPs. Left hand without swelling. Wrists: ?Full range of motion at the wrists without pain. ?No tenderness to palpation or synovitis noted to the wrists. Elbows: Full range of motion without pain. No tenderness, weakness, swelling, increased warmth or erythema. Shoulders: Full range of motion without pain. No tenderness, weakness, swelling, increased warmth or erythema. Hips: Full range of motion without pain. Hip bursa: No tenderness to palpation Knees: ?Full range of motion. ?Mild swelling and tenderness to palpation of the right knee. Left knee without swelling or tenderness to palpation Ankles: Full range of motion. ?No tenderness, swelling, increased warmth or erythema.? Feet: ?Negative squeeze test. ?No tenderness to palpation or swelling of the MTPs. Tender points:?No tenderness to palpation of the bilateral trapezius, supraspinatus, greater trochanters, anterior costochondral junctions, bilateral gluteal areas, bilateral suboccipital muscle insertions SKIN Skin intact without rashes. Results Reviewed Results Reviewed: Laboratory Tests 06/11/23 03/29/24 08:17 08:30 WBC 7.7 RBC 3.98 L Hgb 9.9 L Hct 31.8 L Plt Count 633 H D ESR 72 H Sodium 138 Potassium 4.5 Chloride 104 Carbon Dioxide 27 BUN 14 Creatinine 0.74 Total Bilirubin 0.4 AST 17 ALT 10 C-Reactive Protein 3.04 H 2.80 H Assessment & Plan Assessment & Plan (1) Rheumatoid arthritis: Comment: +++CCP +++RF dx around 2011 on MTX throughout (partially effective). DC in 2023 HCQ 12/2022 minimally effective Code(s): M06.9 - Rheumatoid arthritis, unspecified Category: Medical Qualifiers: Rheumatoid arthritis location: multiple sites Rheumatoid factor presence: with rheumatoid factor Qualified Code(s): M05.79 - Rheumatoid arthritis with rheumatoid factor of multiple sites without organ or systems involvement Plan: #Seropositive RA Patient with seropositive rheumatoid arthritis. It is unclear whether or not her current flare of her disease is due to a CPPD flare or an untreated rheumatoid arthritis flare. Given the asymmetric nature of the flare I am leaning towards it being a CPPD flare and we will treat it with a course of prednisone and chronic colchicine. If this does not improve her disease then I think it is fair to proceed with escalating therapy Plan - Hydroxychloroquine 200mg bid - RTC 3 months - Labs before visit: CBC, CMP, ESR, CRP, hepatitis panel, T spot (2) Pseudogout involving multiple joints: Code(s): M11.89 - Other specified crystal arthropathies, multiple sites Category: Medical Plan: #Crystal proven pseudogout Patient with crystal proven pseudogout. I think she may be having a flare of her pseudogout involving her right hand and right knee. We will give her prednisone taper and start her on chronic colchicine after the prednisone taper is finished Plan - Prednisone 20mg x 3 days then 15mg x 3 days then 10mg x 3 days then 5mg x 3 days then stop - Colchicine 0.6mg bid after prednisone taper is finished - RTC 3 months (3) Osteoporosis: Comment: DEXA 05/2021 L-spine T-score-3.2 Left forearm T-score-3.6 Left femoral neck T-score-4.1 Left total hip T-score -3.8 Reclast 10/30 and 01/2024 Code(s): M81.0 - Age-related osteoporosis without current pathological fracture Category: Medical Qualifiers: Osteoporosis type: age-related Presence of current pathological fracture: unspecified Qualified Code(s): M81.0 - Age-related osteoporosis without current pathological fracture Plan: #Osteoporosis Patient with age-related osteoporosis without evidence of current pathological fracture and no recent falls. Patient is due for a repeat DEXA scan this year Reclast infusion due 01/27/2025 Continue vitamin-D supplementation Plan - Reclast 5mg IV infusion yearly, next due 01/2025 - Vitamin D supplementation - Check Vitamin D levels at next blood draw (4) On colchicine therapy: Code(s): Z79.899 - Other halfway (current) drug therapy Plan: #Long-term use of colchicine Risks and benefits of long-term colchicine for the management of this patient's gout discussed with patient. Benefits include reduced occurrence of flares while we titrate and regulate his uric acid on allopurinol and other uric acid lowering medications. ? 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 Plan: #Long-term Use of Hydroxychloroquine Discussed with patient the risks and benefits of hydroxychloroquine in managing the rheumatic condition Benefits include: - Reduced pain, reduce mortality, maintenance of remission and reduction of flares Risks include: - GI upset, skin hyperpigmentation, retinal toxicity (especially after more than 5 years of use), myopathy Advised yearly ophthalmology visits (6) Microcytic hypochromic anemia: Code(s): D50.9 - Iron deficiency anemia, unspecified Category: Medical Plan: #Iron Deficiency Anemia Patient with iron-deficiency anemia she needs to follow up with Hematology. Gave her the name of Dr. Selena Suresh who last saw her 01/2024. Encouraged her to make an appointment and follow up. Plan I spent 45 minutes reviewing the record and labs, taking a history, examining the patient, discussing the treatment plan and documenting in the medical record Orders: Orders C Reactive Protein Today E55.9 - Vitamin D deficiency, unspecified, M11.89 - Other specified crystal arthropathies, multiple sites Hepatitis A,B,C Profile Today E55.9 - Vitamin D deficiency, unspecified, M11.89 - Other specified crystal arthropathies, multiple sites Vitamin D 25-OH (D2 and D3) Today E55.9 - Vitamin D deficiency, unspecified, M11.89 - Other specified crystal arthropathies, multiple sites Complete Blood Count Auto Diff Today E55.9 - Vitamin D deficiency, unspecified, M11.89 - Other specified crystal arthropathies, multiple sites Comprehensive Met. Panel Today E55.9 - Vitamin D deficiency, unspecified, M11.89 - Other specified crystal arthropathies, multiple sites Erythrocyte Sedimentation Rate Today E55.9 - Vitamin D deficiency, unspecified, M11.89 - Other specified crystal arthropathies, multiple sites T Spot TB Today E55.9 - Vitamin D deficiency, unspecified, M1.89 - Other specified crystal arthropathies, multiple sites Medications: New prednisone Take 4 tablets for 3 days then 3 tablets for 3 days then 2 tablets for 3 days then 1 tablet for 3 days then stop 5 mg PO DIRECTED 30 tabs 0RF M1.89 - Other specified crystal arthropathies, multiple sites colchicine Start taking after completing the prednisone taper 0.6 mg PO BID 60 tabs 4RF M1.89 - Other specified crystal arthropathies, multiple sites Refilled hydroxychloroquine 200 mg PO DAILY 90 tabs 1RF M05.79 - Rheumatoid arthritis with rheumatoid factor of multiple sites without organ or systems involvement Coding Level of Care Code Est Pt Level 5 (62906) Complex EM visit Add On G2211 Diagnoses Rheumatoid arthritis involving multiple sites with positive rheumatoid factor M05.79 Rheumatoid arthritis location: multiple sites Rheumatoid factor presence: with rheumatoid factor Pseudogout involving multiple joints M11.89 Age related osteoporosis, unspecified pathological fracture presence M81.0 Osteoporosis type: age-related Presence of current pathological fracture: unspecified On colchicine therapy Z79.899 Encounter for monitoring of hydroxychloroquine therapy Z51.81; Z79.899 Microcytic hypochromic anemia D50.9
[2024-07-11 13:41] VITALS: BP 130/74; PULSE 76; O2SAT 98; BMI 21.0
--- OUTSIDE RECORDS SUMMARY | 2024-07-11 17:04 | XMS_ITS | Data Portability ---
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 She is seeing Dr. Arora at the end of February. [email or web address] Not available 11/16/2016 14:20:50 12/23/2016 12/23/2016 F/u next month for general f/u, PFTs, and f/u from 11/16/16 visit. [email or web address] Not available 12/26/2016 10:34:13 01/01/2017 01/01/2017 5 pm on Wednesday, sending to ER (she refuses to go here, going to [place]) need to r/o PE/DVT w/hx of RA/PsA, recent PNA/rib fx's with intermittent shortness of breath and acute onset of LLE swelling and pain. [email or web address] Not available 01/01/2017 16:53:52 Plan of Treatment Reminders Order Date Submit Date Provider Last Modified By Organization Details Last Modified Time Details Appointments None recorded. Lab BMP, serum or plasma [address], [address] [place], [address], 8 15:20:38 vitamin D, 25-hydroxy , total, serum [address], 19 [place], [address], 8 15:20:38 CBC [address], [facility] [place], [address], 8 15:20:38 iron + total iron-parish ng capacity (TIBC), serum [address], 19 [place], [address], 8 15:20:38 vitamin B12, serum [address], 19 [place], [address], 8 15:20:38 PTH (parathyro id hormone), intact, serum or plasma [address], 19 [facility], [address], 7 09:30:14 vitamin D, 25-hydroxy , total, serum [address], [address] [facility] [place], [address], 7 09:30:14 vitamin B12, serum [address], 19 [place], [address], 8 11:04:06 PTH (parathyro id hormone), intact, serum or plasma 2016 017 [facility], [address] [facility] [address], 7 14:32:23 magnesium, serum or plasma 2016 017 [facility], [address] [facility] [place], [address], 7 14:42:40 lipid panel, serum 2016 017 [facility], [address] [place], [address], 7 14:42:41 vitamin D, 25-hydroxy , total, serum 2016 017 [facility], [address] [place], [address], 7 14:42:45 CMP, serum or plasma 2016 017 [facility], [address] [place], [address], 7 14:42:38 vitamin B12, serum 2016 017 [facility], [address] [place], [address], 7 14:42:44 CBC 2016 017 [facility], [address] [place], [address], 7 13:27:32 iron + total iron-parish ng capacity (TIBC), serum 2016 017 [facility], [address] [place], [address], 7 13:36:43 CBC 2016 017 [facility], [address] [place], [address], 7 13:08:14 iron + total iron-parish ng capacity (TIBC), serum 2016 017 [facility], [address] [place], [address], 7 14:42:42 Referral endocrinol ogy referral - [place] office Please [address] -Endocrinolog y, [address], [place], [address], 8 13:57:18 Procedures None recorded. Surgeries None recorded. Imaging CT, chest, w/o contrast - f/u previous abnormalit ies [address] (Central Scheduling), [address] [place], [address], 7 20:03:06 US, echocardio gram 2016 017 [facility] (Central Scheduling), [address] [facility], [place], [address], 7 14:42:58 Medication Orders cyanocobal haney (vit B-12) 1,000 mcg tablet 2016 017 [facility], [address] [place], [address], 7 09:54:27 pramipexol e 0.125 mg tablet [address] [facility], [address] [place], [address], 7 19:33:09 Sarna Original 0.5 %-0.5 % lotion 2016 017 [facility]FACE [facility], [address] [place], [address], 7 18:03:30 albuterol sulfate HFA 90 mcg/actuat ion aerosol inhaler 2016 017 [facility], [address] [facility], [place], [address], 7 09:11:34 Fosamax 70 mg tablet 2016 017 [facility], [address] [place] [address], [id number], 7 08:53:21 omeprazole 20 mg capsule,de layed release 2016 017 INTERFACE [facility], [facility] [address], [place] [address], [place], [place], [id number], 7 10:10:07 Patient TargetsNo targets recorded. Patient Instructions Encounter Date Encounter Id Patient Instructions Last Modified By Organization Details Last Modified Time 02/04/2017 [id number] spirometry testing* ADAM Not available 02/05/2017 09:22:28 04/21/2017 [id number] heart-healthy diet: care instructions Not available 04/24/2017 11:28:03 A healthy heart: care instructions [email or web address] Not available 04/24/2017 11:28:03 preventing falls : care instructions [email or web address] Not available 04/24/2017 11:28:03 A healthy lifestyle: care instructions [email or web address] Not available 04/24/2017 11:28:03 Reason for Referral [facility] Referring Physician: Maddison Ta, Family Medicine, Encounter Date: 04/21/2017 Results Created Date Observation Date Name Description Value Unit Range Abnormal Flag Note LastModifiedBy Organization Detail LastModifiedTime 02/05/20 17 02/05/2017 tomeka metry testi ng* Spirometry Not Available In-Offi ce Order Internal Use Only DO Not Attach Compendium DO Not Attach Compendium, Do Not Delete/merge, [id number] 02/04/2017 16:21:40 11/10/19 17 11/09/2016 iron + total iron- parish ng capac ity (TIBC ), serum iron 53 ug/dL 40-175 normal Not Available [address] [place] [address], [address], 11/09/2016 16:45:41 11/10/19 17 11/09/2016 iron + total iron- parish ng capac ity (TIBC ), serum transferrin 278 mg/dL 200-36 0 normal Effec tive 5: Pleas e note the refer ence range for this test has duarte ed. Not Available [address] [place] [address], [address], 11/09/2016 16:45:41 11/10/19 17 11/09/2016 iron + total iron- parish ng capac ity (TIBC ), serum iron binding 363 ug/dL 250-40 0 normal Not Available [address] [place] [address], 70820, 11/09/2016 16:45:41 11/10/19 17 11/09/2016 iron + total iron- parish ng capac ity (TIBC ), serum iron saturation 15 % 16-55 low Not Available [address] [place] [address], [address], 11/09/2016 16:45:41 11/10/19 17 11/09/2016 iron + total iron- parish ng capac ity (TIBC ), serum ferritin 26 NG/mL 8-252 normal Peyton tin value s are age depen dent and can vary depen ding on menop ausal statu s. Not Available [address] [place] [address], 698[address], 11/09/2016 16:45:41 11/10/19 17 11/09/2016 CBC WBC count 4.62 K/mm3 4.0-11 .0 normal Not Available [address] [place] [address], 06799, 11/09/2016 19:09:35 11/10/19 17 11/09/2016 CBC red blood cell count 3.99 M/uL 4.00-5 .20 low Not Available [address] [place] [address], 434[address], 11/09/2016 19:09:35 11/10/19 17 11/09/2016 CBC hemoglobin 10.4 gm/dL 12.0-1 6.0 low Not Available [address] [place] [address], 22476, 11/09/2016 19:09:35 11/10/19 17 11/09/2016 CBC hematocrit 36.4 % 36.0-4 6.0 normal Not Available [address] [place] [address], 70271, 11/09/2016 19:09:35 11/10/19 17 11/09/2016 CBC MCV 91.2 fL 86-99 normal Not Available [address] [place] [address], 63336, 11/09/2016 19:09:35 11/10/19 17 11/09/2016 CBC RDW 17.8 % 11.5-1 6.0 high Not Available [address] [place] [address], 86941, 11/09/2016 19:09:35 11/10/19 17 11/09/2016 CBC plt count 590 K/uL 140-44 0 high Not Available [address] [place] [address], 24761, 11/09/2016 19:09:35 11/10/19 17 11/09/2016 CBC NRBC% 0.0 % 0-0.2 normal Not Available [address] [place] [address], 32596, 11/09/2016 19:09:35 11/10/19 17 11/09/2016 CBC ne# 2.81 K/uL 1.5-7. 5 normal Not Available [address] [place] [address], 76804, 11/09/2016 19:09:35 11/10/19 17 11/09/2016 CBC ly# 1.33 K/uL 1.0-4. 5 normal Not Available [address] [place] [address], 60741, 11/09/2016 19:09:35 11/10/19 17 11/09/2016 CBC MO# 0.38 K/uL 0.0-0. 8 normal Not Available [address] [place] [address], 524[address], 11/09/2016 19:09:35 11/10/19 17 11/09/2016 CBC eo# 0.04 K/uL 0.0-0. 4 normal Not Available [address] [place] [address], 66492, 11/09/2016 19:09:35 11/10/19 17 11/09/2016 CBC ba# 0.04 K/uL 0.0-0. 2 normal Not Available [address] [place] [address], 52138, 11/09/2016 19:09:35 11/10/19 17 11/09/2016 CBC Ig# 0.02 K/uL normal Not Available [address] [place] [address], 25025, 11/09/2016 19:09:35 11/10/19 17 11/09/2016 CBC ne% 60.8 % normal Not Available [address] [place] [address], 85679, 11/09/2016 19:09:35 11/10/19 17 11/09/2016 CBC ly% 28.8 % normal Not Available [address] [place] [address], 19907, 11/09/2016 19:09:35 11/10/19 17 11/09/2016 CBC MO% 8.2 % normal Not Available [address] [place] [address], 66645, 11/09/2016 19:09:35 11/10/19 17 11/09/2016 CBC eo% 0.9 % normal Not Available [address] [place] [address], 52856, 11/09/2016 19:09:35 11/10/1911/09/2016 CBC ba% 0.9 % normal Not Available [address] [place] [address], 24249, 11/09/2016 19:09:35 11/10/19 17 11/09/2016 CBC Ig% 0.4 % normal Not Available [address] [place] [address], 70281, 11/09/2016 19:09:35 11/10/19 17 11/09/2016 CBC RBC morphology REVIEW ED normal Not Available [address] [place] [address] [place] [address], 72[address], 11/09/2016 19:09:35 11/10/19 17 11/09/2016 CBC plt morphology NORMAL normal Not Available [address] [place] [address], 609[address], 11/09/2016 19:09:35 11/10/19 17 11/09/2016 CBC hypochromia MOD normal Not Avai lable [address] [place] [address], 71973, 11/09/2016 19:09:35 11/10/19 17 11/09/2016 CBC anisocytosis MOD normal Not Pinky ilable [address] [place] [address], 40010, 11/09/2016 19:09:35 02/04/20 17 02/03/2017 CBC WBC count 5.1 K/mm3 4.0-11 .0 normal Not Available [address] [place] [address], 09897, 02/03/2017 13:27:32 02/04/20 17 02/03/2017 CBC red blood cell count 3.97 M/uL 4.00-5 .20 low Not Available [address] [place] [address], 85736, 02/03/2017 13:27:32 02/04/20 17 02/03/2017 CBC hemoglobin 10.0 gm/dL 12.0-1 6.0 low Not Available [address] [place] [address], 59634, 02/03/2017 13:27:32 02/04/20 17 02/03/2017 CBC hematocrit 34.1 % 36.0-4 6.0 low Not Available [address] [place] [address], 69380, 02/03/2017 13:27:32 02/04/20 17 02/03/2017 CBC MCV 85.9 fL 86-99 low Not Available [address] [place] [address], 12158, 02/03/2017 13:27:32 02/04/20 17 02/03/2017 CBC RDW 19.0 % 11.5-1 6.0 high Not Available [address] [place] [address] [address] [place] [address], 54142, 02/03/2017 13:27:32 02/04/20 17 02/03/2017 CBC plt count 583 K/uL 140-44 0 high Not Available [address] [place] [address], 116[address], 02/03/2017 13:27:32 02/04/20 17 02/03/2017 CBC NRBC% 0.0 % 0-0.2 normal Not Available [address] [place] [address], 15507, 02/03/2017 13:27:32 02/04/20 17 02/03/2017 CBC ne# 3.22 K/uL 1.5-7. 5 normal Not Available [address] [place] [address], 61150, 02/03/2017 13:27:32 02/04/20 17 02/03/2017 CBC ly# 1.01 K/uL 1.0-4. 5 normal Not Available [address] [place] [address], 16611, 02/03/2017 13:27:32 02/04/20 17 02/03/2017 CBC MO# 0.74 K/uL 0.0-0. 8 normal Not Available [address] [place] [address], 48[address], 02/03/2017 13:27:32 02/04/20 17 02/03/2017 CBC eo# 0.07 K/uL 0.0-0. 4 normal Not Available [address] [place] [address], 56073, 02/03/2017 13:27:32 02/04/20 17 02/03/2017 CBC ba# 0.03 K/uL 0.0-0. 2 normal Not Available [address] [place] [address] [place] [address], 87408, 02/03/2017 13:27:32 02/04/20 17 02/03/2017 CBC Ig# 0.01 K/uL normal Not Available [address] [place] [address], 94868, 02/03/2017 13:27:32 02/04/20 17 02/03/2017 CBC ne% 63.3 % normal Not Available [address] [place] [address], 71250, 02/03/2017 13:27:32 02/04/20 17 02/03/2017 CBC ly% 19.9 % normal Not Available [address] [place] [address], 77068, 02/03/2017 13:27:32 02/04/20 17 02/03/2017 CBC MO% 14.6 % normal Not Available [address] [place] [address], 53778, 02/03/2017 13:27:32 02/04/20 17 02/03/2017 CBC eo% 1.4 % normal Not Available [address] [place] [address], 08326, 02/03/2017 13:27:32 02/04/20 17 02/03/2017 CBC ba% 0.6 % normal Not Available [address] [place] [address], 54959, 02/03/2017 13:27:32 02/04/20 17 02/03/2017 CBC Ig% 0.2 % normal Not Available [address] [place] [address], 35682, 02/03/2017 13:27:32 02/04/20 17 02/03/2017 iron + total iron- parish ng capac ity (TIBC ), serum iron 45 ug/dL 40-175 normal Not Available [address] [place] [address], 84179, 02/03/2017 13:36:43 02/04/20 17 02/03/2017 iron + total iron- parish ng capac ity (TIBC ), serum transferrin 317 mg/dL 200-36 0 normal Effec tive 5: August melgoza note the refer ence range for this test has duarte ed. Not Available [address] [place] [address], 28279, 02/03/2017 13:36:43 02/04/20 17 02/03/2017 iron + total iron- parish ng capac ity (TIBC ), serum iron binding 411 ug/dL 250-40 0 high Not Available [address] [place] [address], 74015, 02/03/2017 13:36:43 02/04/20 17 02/03/2017 iron + total iron- parish ng capac ity (TIBC ), serum iron saturation 11 % 16-55 low Not Available [address] [place] [address] [place] [address], 21398, 02/03/2017 13:36:43 02/04/20 17 02/03/2017 iron + total iron- parish ng capac ity (TIBC ), serum ferritin 48 NG/mL 8-252 normal Peyton tin value s are age depen dent and can vary depen ding on menop ausal statu s. Not Available [address] [place] [address], 19445, 02/03/2017 13:36:43 04/13/20 17 04/13/2017 CBC WBC count 4.0 K/mm3 4.0-11 .0 normal Not Available [address] [place] [address], 95754, 04/13/2017 13:08:14 04/13/20 17 04/13/2017 CBC red blood cell count 4.57 M/uL 4.00-5 .20 normal Not Available [address] [place] [address], 97839, 04/13/2017 13:08:14 04/13/20 17 04/13/2017 CBC hemoglobin 12.0 gm/dL 12.0-1 6.0 normal Not Available [address] [place] [address] [address] [place] [address], 78175, 04/13/2017 13:08:14 04/13/20 17 04/13/2017 CBC hematocrit 40.1 % 36.0-4 6.0 normal Not Available [address] [place] [address], 39594, 04/13/2017 13:08:14 04/13/20 17 04/13/2017 CBC MCV 87.7 fL 86-99 normal Not Available [address] [place] [address], 67360, 04/13/2017 13:08:14 04/13/20 17 04/13/2017 CBC RDW 19.0 % 11.5-1 6.0 high Not Available [address] [place] [address], 76687, 04/13/2017 13:08:14 04/13/20 17 04/13/2017 CBC plt count 496 K/uL 140-44 0 high Not Available [address] [place] [address], 84359, 04/13/2017 13:08:14 04/13/20 17 04/13/2017 CBC NRBC% 0.0 % 0-0.2 normal Not Available [address] [place] [address], 57464, 04/13/2017 13:08:14 04/13/20 17 04/13/2017 CBC ne# 2.17 K/uL 1.5-7. 5 normal Not Available [address] [place] [address], 93501, 04/13/2017 13:08:14 04/13/20 17 04/13/2017 CBC ly# 1.29 K/uL 1.0-4. 5 normal Not Available [address] [place] [address], 40612, 04/13/2017 13:08:14 04/13/20 17 04/13/2017 CBC MO# 0.43 K/uL 0.0-0. 8 normal Not Available [address] [place] [address] [address] [place] [address], 14174, 04/13/2017 13:08:14 04/13/20 17 04/13/2017 CBC eo# 0.06 K/uL 0.0-0. 4 normal Not Available [address] [place] [address] [address] [place] [address], 41991, 04/13/2017 13:08:14 04/13/20 17 04/13/2017 CBC ba# 0.02 K/uL 0.0-0. 2 normal Not Available [address] [place] [address] [address] [place] [address], 98725, 04/13/2017 13:08:14 04/13/20 17 04/13/2017 CBC Ig# 0.01 K/uL normal Not Available [address] [place] [address] [address] [place] [address], 27835, 04/13/2017 13:08:14 04/13/20 17 04/13/2017 CBC ne% 54.5 % normal Not Available [address] [place] [address] [address] [place] [address], 81281, 04/13/2017 13:08:14 04/13/20 17 04/13/2017 CBC ly% 32.4 % normal Not Available [address] [place] [address] [address] [place] [address], 10681, 04/13/2017 13:08:14 04/13/20 17 04/13/2017 CBC MO% 10.8 % normal Not Available [address] [place] [address] [address] [place] [address], 28635, 04/13/2017 13:08:14 04/13/20 17 04/13/2017 CBC eo% 1.5 % normal Not Available [address] [place] [address] [address] [place] [address], 40386, 04/13/2017 13:08:14 04/13/20 17 04/13/2017 CBC ba% 0.5 % normal Not Available [address] [place] [address] [address] [place] [address], 85236, 04/13/2017 13:08:14 04/13/20 17 04/13/2017 CBC Ig% 0.3 % normal Not Available [address] [place] [address] [place] [address], 69974, 04/13/2017 13:08:14 04/13/20 17 04/13/2017 PTH (para thyro id hormo ne), intac t, serum or plasm a parathyroid hormone intact 152 pg/mL 14-72 high Not Available [address] [place] [address] Draw[address] [place] [address], 13362, 04/13/2017 14:32:23 04/13/20 17 04/13/2017 CMP, serum or plasm a glucose 87 mg/dL 70-109 normal Not Available [address] [place] [address], 36150, 04/13/2017 14:42:38 04/13/20 17 04/13/2017 CMP, serum or plasm a BUN 10 mg/dL 6-26 normal Not Available [address] [place] [address], 80326, 04/13/2017 14:42:38 04/13/20 17 04/13/2017 CMP, serum or plasm a creatinine 0.71 mg/dL 0.0-1. 3 normal Not Available [address] [place] [address], 62472, 04/13/2017 14:42:38 04/13/20 17 04/13/2017 CMP, serum or plasm a glomerular filtration rate > 60 normal Units : mL/mi n/1.7 3 m2 Estim ated GFR (eGFR ) shoul d not be used for patie nts with acute kidne y injur y or ESRD (crea tinin e shoul d be at stead y state and stabl e to use). eGFR is calcu lated using the 2009 CKD-E PI creat inine equat ion, which is now the recom ana maria d equat ion to estim ate GFR based on creat inine per fredys t KDIGO (Kidn ey Disea se Impro ving Globa l Outco mes) Guide lines . KDIGO recom mends CKD now be class ified based on cause , GFR categ ory, and album inuri a categ ory. GFR categ ories will not be repor idalia by the lab for G1 or G2 (eGFR >60). GFR categ ories shoul d be assig juan jose as: eGFR 45-59 = G3a (mild ly to moder ately decre ased) , eGFR 30-44 = G3b (mode ratel y to sever tanna decre ased) , eGFR 15-29 G4 (kt rely decre ased) , eGFR< 15 G5 (kidn ey failu re). Not Available [address] [place] [address], 759[address], 04/13/2017 14:42:38 04/13/20 17 04/13/2017 CMP, serum or plasm a calcium 9.9 mg/dL 8.3-9. 9 normal Not Available [address] [place] [address], 08348, 04/13/2017 14:42:38 04/13/20 17 04/13/2017 CMP, serum or plasm a total protein 6.9 g/dL 5.9-7. 9 normal Effec tive 5: Pleas e note the refer ence range for this test has duarte ed. Exact pedia tric range s are not estab lishe d, but tend to be lower than adult range s. Not Available [address] [place] [address], 02358, 04/13/2017 14:42:38 04/13/20 17 04/13/2017 CMP, serum or plasm a albumin 4.0 g/dL 2.9-4. 7 normal Not Available [address] [place] [address], 76261, 04/13/2017 14:42:38 04/13/20 17 04/13/2017 CMP, serum or plasm a alkaline phosphatase 56 IU/L 18-210 normal Not Available [address] [place] [address], 44209, 04/13/2017 14:42:38 04/13/20 17 04/13/2017 CMP, serum or plasm a SGOT (AST) 22 IU/L 15-37 normal Effec tive 5: Pleas e note the refer ence range for this test has duarte ed. Not Available [address] [place] [address], 31852, 04/13/2017 14:42:38 04/13/20 17 04/13/2017 CMP, serum or plasm a bilirubin total 0.4 mg/dL 0.2-1. 3 normal Not Available [address] [place] [address], 87141, 04/13/2017 14:42:38 04/13/20 17 04/13/2017 CMP, serum or plasm a SGPT (ALT) 23 IU/L 13-56 normal Not Available [address] [place] [address], 93731, 04/13/2017 14:42:38 04/13/20 17 04/13/2017 CMP, serum or plasm a sodium 141 mEq/L 135-14 5 normal Not Available [address] [place] [address], 46746, 04/13/2017 14:42:38 04/13/20 17 04/13/2017 CMP, serum or plasm a potassium 4.4 mEq/L 3.5-5. 1 normal Not Available [address] [place] [address], 03439, 04/13/2017 14:42:38 04/13/20 17 04/13/2017 CMP, serum or plasm a chloride 108 mEq/L 98-112 normal Not Available [address] [place] [address], 90984, 04/13/2017 14:42:38 04/13/20 17 04/13/2017 CMP, serum or plasm a CO2 25 mEq/L 20-32 normal Not Available [address] [place] [address], 05127, 04/13/2017 14:42:38 04/13/20 17 04/13/2017 CMP, serum or plasm a anion gap 8 mEq/L 5-15 normal Not Available [address] [place] [address], 69731, 04/13/2017 14:42:38 04/13/20 17 04/13/2017 magne sium, serum or plasm a magnesium 2.1 mg/dL 1.6-2. 6 normal Not Available [address] [place] [address], 75713, 04/13/2017 14:42:40 04/13/20 17 04/13/2017 lipid panel , serum cholesterol 167 mg/dL normal ASHA ABLE <200 Asha able 200-2 39 Borde rline High >=240 High Not Available [address] [place] [address], 09888, 04/13/2017 14:42:41 04/13/20 17 04/13/2017 lipid panel , serum triglyceride 190 mg/dL normal BORDE RLINE HIGH <=150 Luz l 150-1 99 Borde rline High 200-4 99 High >=500 Very High Not Available [address] [place] [address], 64836, 04/13/2017 14:42:41 04/13/20 17 04/13/2017 lipid panel , serum HDL 66 mg/dL normal OPTIM AL <40 Low >=60 Optim al Not Available [address] [place] [address], 50599, 04/13/2017 14:42:41 04/13/20 17 04/13/2017 lipid panel , serum calculated LDL 63 mg/dL normal OPTIM AL <100 Optim al 100-1 29 Near optim al 130-1 59 Borde rline High 160-1 89 High >=190 Very High The above class ifica tions are based on the recom menda tions of the NCEP Exper t Panel , (ATP III, 2001) . Not Available [address] [place] [address], 07692, 04/13/2017 14:42:41 04/13/20 17 04/13/2017 iron + total iron- parish ng capac ity (TIBC ), serum iron 42 ug/dL 40-175 normal Not Available [address] [place] [address] [place] [address], 09322, 04/13/2017 14:42:42 04/13/20 17 04/13/2017 iron + total iron- parish ng capac ity (TIBC ), serum transferrin 275 mg/dL 200-36 0 normal Effec tive 5: Pleas e note the refer ence range for this test has duarte ed. Not Available [address] [place] [address], 53778, 04/13/2017 14:42:42 04/13/20 17 04/13/2017 iron + total iron- parish ng capac ity (TIBC ), serum iron binding 359 ug/dL 250-40 0 normal Not Available [address] [place] [address], 50432, 04/13/2017 14:42:42 04/13/20 17 04/13/2017 iron + total iron- parish ng capac ity (TIBC ), serum iron saturation 12 % 16-55 low Not Available [address] [place] [address] [place] [address], 00760, 04/13/2017 14:42:42 04/13/20 17 04/13/2017 iron + total iron- parish ng capac ity (TIBC ), serum ferritin 15 NG/mL 8-252 normal Peyton tin value s are age depen dent and can vary depen ding on menop ausal statu s. Not Available [address] [place] [address], [id number], 04/13/2017 14:42:42 04/13/20 17 04/13/2017 vitam in B12, serum vitamin B12 279 pg/mL 193-98 6 normal Effec tive 5: Pleas e note the refer ence range for this test has duarte ed. Not Available [address] [place] [address], [id number], 04/13/2017 14:42:43 04/13/20 17 04/13/2017 vitam in D, 25-hy droxy , total , serum vitamin D, 25 hydroxy 22 NG/mL 30-100 low 25-OH Vitam in D measu res both endog enous ly produ alivia Vitam in D (D3) and Vitam in D deriv ed from dieta ry suppl ement ation (D2). Level s <20 ng/mL sugge st defic iency while level s betwe en 20-30 ng/mL sugge st insuf ficie ncy. Value s <30 ng/mL may indic ate a need for suppl ement ation . Not Available [address] [facility], [place], [address], 04/13/2017 14:42:45 12/15/19 17 12/09/2016 XR, chest , 2 view No observ ation record ed. [email or web address] Not Available 2016 17:07:18 12/15/19 17 12/02/2016 CT, chest , w/o contr ast No observ ation record ed. [email or web address] Not Available 2016 17:07:18 12/15/19 17 12/02/2016 XR, chest No observ ation record ed. Not Available 2016 17:07:18 01/23/20 17 01/18/2017 US, echoc ardio gram [facility] , [place]. [address] - Chichi t: SIMIN GAMEZ ROL Phone: Exam Date:0 7 Exam: ECHOCA RDIOGR AM Attend yvette Jorgensen:Kim NAILS :[birth year] Age/Se x: 71/F Kendrick dixon M.D.: BHAVYA TA E.DChristi Attend yvette Jorgensen: X-Ray #: [id number] Locati on: [email or web address] Sympto ns for test: DYSPNE A Diagno sis: [facility] [address] [place] [address] [phone] Transt horaci c Echoca rdiogr am 2D, M-mode , Dopple r, and Color Dopple r Name: YOLI ANNA MR #: [id number] Accoun t #: [id number] Study date: 2016 : 1944 Gender : Female Height : 61 in Weight : 145.6 lb --SUMM CLAYTON: --Left ventri jolene: Systol ic functi on was normal . Ejecti on fracti on was estima idalia in the range of 55 % to 65 %. This study was inadeq uate for the evalua tion of region al wall motion . Featur es were consis tent with a pseudo normal left ventri cular fillin g patter n, with concom itant abnorm al relaxa tion and increa sed fillin g pressu re (grade 2 diasto lic dysfun ction) . --Aort ic valve: The valve was trilea flet and exhibi idalia normal morpho logy and motion . Leafle ts exhibi idalia normal thickn ess and normal cuspal separa tion. --Mitr al valve: There was modera te to marked annula r calcif icatio n. There was mild regurg itatio n. --HIST ORY: INDICA TIONS: DYSPNE A. BP: 120/80 --PROC EDURE: The trans kal reaves approa ch was used. The study includ ed comple te 2D imagin g, M-mode , comple te spectr al Dopple r, and color Dopple r. --LEFT VENTRI JOLENE: Size was normal . Systol ic functi on was normal . Ejecti on fracti on was estima idalia in the range of 55 % to 65 %. This study was inadeq uate for the evalua tion of region al wall motion . Wall thickn ess was normal . DOPPLE R: The transm itral flow patter n was normal . Featur es were consis tent with a pseudo normal left ventri cular fillin g patter n, with concom itant abnorm al relaxa tion and increa sed fillin g pressu re (grade 2 diasto lic dysfun ction) . --AORT IC VALVE: The valve was trilea flet and exhibi idalia normal morpho logy and motion . Leafle ts exhibi idalia normal thickn ess and normal cuspal separa tion. DOPPLE R: Transa ortic veloci ty was within the normal range. There was no stenos is. There was no regurg itatio n. --AORT A: The root exhibi idalia normal size. --MITR AL VALVE: There was modera te to marked annula r calcif icatio n. The valve exhibi idalia normal morpho logy and motion . There was normal leafle t separa tion. DOPPLE R: The transm itral veloci ty was within the normal range. There was no eviden ce for stenos is. There was mild regurg itatio n. --LEFT ATRIUM : Size was normal . --RIGH T VENTRI JOLENE: The size was normal . Systol ic functi on was normal . Wall thickn ess was normal . --PULM ONARY ARTERY : DOPPLE R: Systol ic pressu re was within the normal range. --TRIC USPID VALVE: The valve exhibi idalia normal morpho logy and motion . DOPPLE R: There was trivia l regurg itatio n. --RIGH T ATRIUM : Size was normal . --SYST EMIC VEINS: IVC: The inferi or vena cava was normal in size. Echo Techno logist : Tawanna Soto --Syst em measur ement tables 2D LVOT: 1.8 cm %FS: 38.8 % AVC: 349 ms Ao Diam: 2.7 cm Ao asc: 2.5 cm EDV(Te ich): 94.2 ml EF Biplan e: 65.8 % EF(Tei ch): 69.3 % ESV(Te ich): 28.9 ml IVSd: 0.8 cm LA Diam: 2.8 cm LAAs A2C: 13.6 cm2 LAAs A4C: 12.7 cm2 LAESV A-L A2C: 35.8 ml LAESV A-L A4C: 31.8 ml LAESV Index (A-L): 20.6 ml/m2 LAESV MOD A2C: 33 ml LAESV MOD A4C: 29.7 ml LAESV( A-L): 33.9 ml LALs A2C: 4.4 cm LALs A4C: 4.3 cm LVEDV MOD A2C: 34.4 ml LVEDV MOD A4C: 32.9 ml LVEDV MOD BP: 34.5 ml LVEF MOD A2C: 69.9 % LVEF MOD A4C: 61.7 % LVESV MOD A2C: 10.4 ml LVESV MOD A4C: 12.6 ml LVESV MOD BP: 11.8 ml LVIDd: 4.5 cm LVIDs: 2.8 cm LVLd A2C: 5.3 cm LVLd A4C: 5.7 cm LVLs A2C: 4.6 cm LVLs A4C: 4.3 cm LVPWd: 0.8 cm SV MOD A2C: 24.1 ml SV MOD A4C: 20.3 ml SV(Tei ch): 65.3 ml CW AV Vmax: 138.2 cm/s AV maxP.6 mmHg MV A Heriberto: 130 cm/s MV Dec George: 633.3 cm/s2 MV DecT: 146.6 ms MV E Heriberto: 92.8 cm/s MV E/A Ratio: 0.7 RAP: 10 mmHg TR Vmax: 247.8 cm/s TR maxP.6 mmHg PW PINKY Vmax: 1.8 cm2 E' Av.1 cm/s E' Lat: 6.1 cm/s E' Sept: 4.1 cm/s E/E' Av.1 E/E' Lat: 15.3 E/E' Sept: 22.4 HR: 89.2 bpm LVCI Dopp: 3 l/minm 2 LVCO Dopp: 4.9 L/min LVOT Env.Ti : 279.3 ms LVOT VTI: 21.7 cm LVOT Vmax: 98.6 cm/s LVOT Vmean: 77.8 cm/s LVOT maxP.9 mmHg LVOT meanPG : 2.6 mmHg LVSI Dopp: 33.2 ml/m2 LVSV Dopp: 54.8 ml P Vein A: 30.5 cm/s P Vein D: 38.7 cm/s P Vein S: 62.7 cm/s P Vein S/D Ratio: 1.6 RV S': 16.6 cm/s RVSP: 34.6 mmHg Prepar ed and signed by Gerber Nieves MD Signed 2016 14:29: 26 037 CP/ECH OCARDI OGRAM SUMMAR Y: --Left ventri jolene: Systol ic functi on was normal . Ejecti on fracti on was estima idalia in the range of 55 % to 65 %. This study was inadeq uate for the evalua tion of region al wall motion . Featur es were consis tent with a pseudo normal left ventri cular fillin g patter n, with concom itant abnorm al relaxa tion and increa sed fillin g pressu re (grade 2 diasto lic dysfun ction) . --Aort ic valve: The valve was trilea flet and exhibi idalia normal morpho logy and motion . Leafle ts exhibi idalia normal thickn ess and normal cuspal separa tion. --Mitr al valve: There was modera te to marked annula r calcif icatio n. There was mild regurg itatio n. ---- Dictat ing Jameel.. ...... .....: GERBER NIEVES MD Dictat ing Date and Time:0 7 0000 Esigne d by:MAIA LUKE MD DT/ Esigne d:01/08 09/23 1429 Transc riber. ...... ...... ...... .....: GC Techno logist ...... ...... ...... ....: AK [email or web address] [facility] (Radiology) [address] [place] [address], [address], 01/22/2017 15:51:25 01/26/20 17 01/01/2017 US, flaquita domingo, jorge s, jay [facility] anna No observ ation record ed. [email or web address] Not Available 2016 09:56:42 02/05/20 17 tomeka metry testi ng* No observ ation record ed. [email or web address] Not Available 2016 19:17:10 02/18/20 17 02/12/2017 CT, chest , w/o contr ast [facility] s ADALBERTO VARGAS [facility] FILEMON IMAGIN G CTR DIAGNO STIC IMAGIN G DEPART MENT [address] [place] [address] - Patien t: SIMIN GAMEZ Phone: Exam Date:1 7 Exam: CT Chest Wo Attend [facility] M.D.:Kim NAILS REVIVAL CLERK :02/09 Age/Se x: 72/F Orderi zack Morley.:Kim NAILS E.DChristi Attend yvette M.D.: Primar y Thais Morley.: BHAVYA TA REVIVAL CLERK X-Ray #: [id number] Locati on: RAD.NA Other Locati on: Clinic al Histor y: DYSPNE A CT EXAMIN ATION CHEST WITHOU T IV CONTRA ST. TECHNI QUE: CT examin ation of the chest was perfor med and supple mented with sagitt al, schwartz l and schwartz l thick slab MIP recons tructi ons. One or more of the follow ing dose reduct ion techni ques was utiliz ed: automa tic exposu re contro l, adjust ment of mA and/or kV accord ing to patien t size and/or use of iterat ken recons tructi ve techni que COMPAR JAVI: CT chest 017 and chest x-ray of 12/16/19 17 FINDIN GS There are multip le healin g nondis placed left and right rib fractu res No signif icant pulmon clayton nodule or infilt rate Very minima l scarri ng at left lung base No perica rdial or pleura l effusi on No pneumo thorax Mild athero sclero tic change s of schwartz ry arteri es Unenha nced visual ized thyroi d gland and medias tinum are unrema rkable Visual ized upper abdome n is unrema rkable CONCLU AUGUST: Healin g bilate ral rib fractu res Otherw ise unrema rkable study. Statio n: [id number] Access ion Number : [id number] Transc ribed by: PS Interp reting Physic danna: VALENTÍN DURAN MD Electr onical ly Signed by: NAHOMY DURAN MD on 1344 Rec'd in [facility] on : 1344 Techno logist : RM Exam CPT #: [id number] Briana Melara r #: [id number] Report #: [id number] [facility] Rec#:[id number] Report Status : Signed [address] (Radiology) [address] [place] [address], [address], 02/17/2017 19:58:28 02/25/20 17 02/04/2017 tomeka metry testi ng* No observ ation record ed. [email or web address] In-Office Order Internal Use Only DO Not Attach Compendium DO Not Attach Compendium, Do Not Delete/merge, [id number] 02/24/2017 09:26:11 Result Notes None recorded. Problems Name Problem SNOMED Code Status Onset Date Resolution Date Notes Provider Name and Address Organization Details Recorded Time Bursitis of shoulder 437389056 Completed 09/20/2015 Maddison Ta [address], [address], [facility] [employer] 6 11:16:08 Hypercho lesterol emia 04606981 Completed 09/19/2015 Maddison Ta [address], [address], [facility] [employer] 6 11:16:08 Disorder of lipid metaboli sm 632526817 Completed 09/19/2015 Maddison Ta [address], [address], [facility] [employer] 6 11:16:08 Restless legs 03571410 Active ? hives w/mirape x, Gabapent in no longer effectiv e. Neupro patch & Lyrica are too expensiv e. Referrin g to Neurolog y. Maddison Ta [address], [address], [facility] [employer] 7 10:40:06 Pure hypercho lesterol emia 405037404 Completed 09/19/2015 Maddison Ta [address], [address], [facility] [email or web address] 6 11:16:08 Anemia 303304865 Completed 09/20/2015 Maddison Ta [address], [address], [facility] [email or web address] 6 11:16:08 Hyperten sive disorder 07084358 Completed 04/08/2016 Maddison Ta [address], [address], [facility] [employer] 6 21:12:21 Hyperlip idemia 10427372 Active Maddison Ta [address], [address], [facility] [email or web address] 7 11:31:53 Pain 78647871 Completed 09/25/2015 Maddison aT [address], [address], [facility] [employer] 6 20:26:38 Abnormal breath sounds 604298849 Completed 04/08/2016 Maddison Ta [address], [address], [facility] [email or web address] 6 20:35:08 Iron deficien cy anemia 92349561 Active Secondar y to chronic stomach ulcers dx'd on EGD 09/22, Dr. Almonte. Maddison Ta [address], [address], [facility] [employer] 6 20:35:05 Constipa tion 00810641 Active secondar y to iron supp Maddison Ta [address], [address], [facility] [employer] [facility] [employer] 6 20:34:14 Edema 735032993 Completed 04/08/2016 Maddison Ta [address], [address], [facility] [email or web address] [facility] 6 20:26:14 Laborato ry test result abnormal 353267238 Completed 04/08/2016 Maddison Ta [address], [address], [facility] [employer] [facility] 6 20:25:56 C-reacti ve protein outside referenc e range 946317278 Completed 04/08/2016 Maddison Ta [address], [address], [facility] [employer] [place] [facility] 6 20:26:03 Hypomagn esemia 313314378 Active Maddison Ta [address], [address], [facility] [employer] [facility] 6 11:16:07 Pain 50220408 Completed 04/08/2016 Maddison Ta [address], [address], [facility] [employer] [place] [facility] 6 20:26:38 Smoker 33568055 Completed 04/08/2016 Maddison Ta [address], [address], [facility] [employer] [facility] [employer] [facility] 7 11:32:18 Joint pain 26673413 Completed 04/08/2016 Maddison Ta [address], [address], [facility] [employer] [place] [facility] 6 20:26:18 Rheumato id arthriti s 39416988 Active [facility] Maddison Ta [address], [address], [facility] [employer] [facility] [employer] [place] [facility] 7 11:30:56 Ulcer 394735747 Active 2015 Multiple chronic antrum ulcers. Accounta ble for iron deficien cy. Dr. Almonte. Maddison Ta [address], [address], [facility] [employer] [facility] [employer] 6 21:14:17 Nicotine dependen ce 37545823 Completed 04/24/2017 Maddison Ta [address], [address], [facility] [employer] [place] [facility] 7 11:32:11 Osteopor osis 65993937 Active 02/28/20 16 BMD w/Severe osteopor osis. 04/09/16 starting fosamax. Maddison Ta [address], [address], [facility] [employer] [place] [facility] 6 12:37:52 Vitamin D deficien cy 21348251 Active Maddison Ta [address], [address], [facility] [employer] [place] [facility] 7 11:31:35 Psoriati c arthrinatalya s 965841077 Active Dr[facility] Maddison Ta [address], [address], [facility] [employer] [place] [facility] 7 11:31:03 Coronary atherosc lerosis 935948123 Active 11/23 CT chest. Mild atherosc lerosis of coronary arteries . Hx of ulcer w/iron def anemia. Asa d/c'd - risk outweigh s benefit at this time. Continue statin. Needs to quit smoking. Maddison Ta [address], [address], [facility] [employer] [place] [facility] 7 17:50:30 At increase d risk for falls 692897702 Active Does have cane and walker, hospital bed w/rails, handle bars in shower. Maddison Ta [address], [address], [facility] [employer] [place] [facility] 7 10:15:08 Smoker 26646288 Active 2016 Maddison Ta [address], [address], [facility] [employer] [place] [facility] 7 11:32:18 Cobalami n deficien cy 635994682 Active Maddison Ta [address], [address], [facility] [employer] 7 11:47:44 Hyperpar athyroid ism 05463607 Active MaddisonAMERICA Turner [address] [place] [address], [address], [facility] [employer] 7 11:47:46 Chronic rhinitis 81761035 Active AMERICA Leavitt [address] [place] [address], [address], [facility] [employer] 7 11:47:50 Notes:01/2016 Hep C negative Problem Notes None recorded. Procedures Surgical History Date Name Laterality Status Provider Name and Address Organization Details Recorded Time 02/28/20 16 Mammogram completed AMERICA Leavitt [address] [place] [address], [address], [facility] [employer] 03/02/2016 10:39:30 11/07/19 16 Colonoscopy completed AMERICA Leavitt [address] [place] [address], [address], [facility] [employer] 11/19/2015 11:39:50 09/20/19 16 EGD completed AMERICA Leavitt [address] [place] [address], [address], [facility] [employer] 04/08/2016 21:14:07 04/06/19 73 Hysterectomy completed AMERICA Leavitt [address] [place] [address], [address], [facility] [employer] 09/20/2015 14:42:08 01/04/19 73 Section completed mandy castrejon [place] [employer] 09/18/2015 16:50:14 05/10/18 73 Appendectomy completed AMERICA Leavitt [address] [place] [address], [address], [facility] [employer] 10/18/2015 11:17:55 Imaging Results Imaging Date Name Status LastModified by Organization Details LastModified Time 12/09/2016 XR, chest, 2 view completed [email or web address] Informa tion not available 12/14/2016 17:07:18 12/02/2016 CT, chest, w/o contrast completed [email or web address] Information not available 12/14/2016 17:07:18 12/02/2016 XR, chest completed [email or web address] Information no t available 12/14/2016 17:07:18 01/18/2017 US, echocardiogram completed [email or web address] [facility] (Radiology) [address] [place] [address], [address], 01/22/2017 15:51:25 01/01/2017 US, duplex, venous, lower extremity completed [email or web address] Information not available 01/26/2017 09:56:42 02/04/2017 spirometry testing* completed [email or web address] Information not available 02/04/2017 19:17:10 02/12/2017 CT, chest, w/o contrast completed [email or web address] [facility] (Radiology) [address] [place], [address], 02/17/2017 19:58:28 02/04/2017 spirometry testing* completed [email or web address] In-Office Order Internal Use Only DO Not Attach Compendium DO Not Attach Compendium, Do Not Delete/merge, [id number] 02/24/2017 09:26:11 Procedure Notes None recorded. Medical Equipment None Reported. Allergies Allergen ID Allergen Name Allergen Category Reaction Reaction Severity Criticality Documentation Date Start Date Code Code System Note Provider Name and Address Organization Details Recorded Time 93588 Oxycontin medicatio n hives Not available Not available 10/09/2015 18770 6 RxNorm mandy crain [facility] [employer] [facility] 6 09:56:45 96893 pramipexo le medicatio n hives Not available Not available 04/26/2017 84459 1 RxNorm AMERICA Leavitt [address] [place], [address] , [facility] - [employer] [facility] 7 19:38:42 Medications Name Sig Start Date Stop Date Status Note LastModified by Organization Details LastModified Time quetiapin e 25 mg tablet active Not Available Not Available Not Available amoxicill in 500 mg capsule active Not Available Not Available Not Available Colace 100 mg capsule Take 1 capsule twice a day by oral route as needed for 30 days. 2015 active Not Available Not Available Not Avai lable prednison e 10 mg tablet Take one tab daily for ten days, then take 1/2 tab daily for 10 days then stop 04/08 completed Not Available Not Available Not Available gabapenti n 600 mg tablet take 1 tablet 3 times daily active Not Available Not Available No t Available Iron (ferrous sulfate) 325 mg (65 mg iron) tablet Take 1 tablet twice a day by oral route. active Not Available Not Available No t Available pravastat in 40 mg tablet take one tablet daily by mouth for 90 days active Not Available Not Available No t Available tizanidin e 4 mg tablet active Not Available Not Available Not Available prednison e 20 mg tablet Take 2 tablet(s ) every day by oral route for 5 days. Then take 1 tablet every day by oral route for 5 days active Not Available Not Available No t Available alendrona te 70 mg tablet Take 1 tablet every week by oral route for 90 days. active Not Available Not Available No t Available prednison e 5 mg tablet 11/16 completed Not Available Not Available Not Available cyanocoba rose (vit B-12) 1,000 mcg tablet TAKE ONE TABLET BY MOUTH ONCE DAILY active Not Available Not Available No t Available Vitamin B-12 500 mcg tablet Take 1 tablet by oral route for 30 days. 2016 active Not Available Not Available Not Avai lable tramadol 50 mg tablet Take 1 tablet every 6 hours by oral route as needed. 04/24 completed not taking Not Available Not Available Not Available hydromorp valerio 2 mg tablet 12/23 completed Not Available Not Available Not Available magnesium oxide 400 mg (241.3 mg magnesium ) tablet TAKE ONE TABLET BY MOUTH ONCE DAILY 2016 active Not Available Not Available Not Avai lable methotrex ate sodium 2.5 mg tablet four tabs once a week active Not Available Not Available No t Available gabapenti n 800 mg tablet TAKE 1 TABLET IN THE MORNING, TAKE 1 and 1/2 TABS AT 4PM AND THEN TAKE 1 and 1/2 TABS 2 HOURS PRIOR TO BEDTIME 04/16 completed not taking Not Available Not Available Not Available ropinirol e 0.25 mg tablet active Not Available Not Available Not Available prednison e 2.5 mg tablet 04/24 completed not taking Not Available Not Available Not Available pantopraz ole 40 mg tablet,de layed release take 1 tablet twice daily 07/20 completed Not Available Not Available Not Available pramipexo le 0.125 mg tablet 0.125 mg once daily 2 to 3 hours before bedtime. 04/26 completed Not Available Not Available Not Available omeprazol e 20 mg capsule,d elayed release Take 1 capsule every day by oral route for 90 days. active Not Available Not Available No t Available gabapenti n 100 mg capsule Take 3 caps po daily x 7 days, then take 2 caps po daily for 7 days, then take one cap daily for 7 days then stop 04/16 completed rx'd for RLS. not taking. Not Available Not Available Not Available levofloxa miguel ángel 750 mg tablet 12/23 completed Not Available Not Available Not Available Enteric Coated Aspirin 81 mg tablet,de layed release Take 1 tablet every day by oral route. 07/13 completed on hold until CBC normaliz es. Not Available Not Available Not Available Vitamin D2 1,250 mcg (50,000 unit) capsule TAKE ONE CAPSULE BY MOUTH ONCE A WEEK active Not Available Not Available No t Available Vitamin B12 500 mcg tablet Take by oral route. 02/04 completed Not Available Not Available Not Available azithromy miguel ángel 500 mg tablet active Not Available Not Available No t Available Sarna Original 0.5 %-0.5 % lotion Apply 1 applicat ion 4 times a day by topical route as needed. 2016 active Not Available Not Available Not Avai lable Lyrica 50 mg capsule Take 1 capsule every day by oral route at bedtime for 30 days. 04/28 completed never started Not Available Not Available Not Available folic acid Take 1mg po daily active Not Available Not Available No t Available Vitamin D3 active Not Available Not Available Not Available Metamucil 04/24 completed not taking Not Available Not Available Not Available ProAir HFA 90 mcg/actua tion aerosol inhaler Inhale 2 puffs every 4-6 hours by inhalati on route for 30 days. active Not Available Not Available No t Available Prevnar 13 (PF) 0.5 mL intramusc ular syringe 07/20 completed Not Available Not Available Not Available Vitamin D3 50 mcg (2,000 unit) capsule Take 1 capsule every day by oral route for 30 days. 02/04 completed Not Available Not Available Not Available OptiChamb er Aspen [facility] 12/23 completed Not Available Not Available Not Available magnesium 400 mg (as magnesium oxide) capsule Take 1 capsule every day by oral route for 30 days. 11/16 completed Not Available Not Available Not Available Neupro 1 mg/24 hour transderm al 24 hour patch Apply 1 patch every day by transder mal route for 30 days. 04/28 completed Not Available Not Available Not Available albuterol sulfate 90 mcg/actua tion breath activated powder inhaler Inhale 2 puffs 4 times a day by inhalati on route. 12/23 completed Not Available Not Available Not Available Fluzone High-Dose (PF) 180 mcg/0.5 mL intramusc ular syringe active Not Available Not Available Not Available Fluzone High-Dose (PF) 180 mcg/0.5 mL intramusc ular syringe 04/08 completed Not Available Not Available Not Available Vitals Date Recorded Body height Body mass index (BMI) Body weight Heart rate Systolic blood pressure Diastolic blood pressure Provider Name and Address Organization Details Last Updated DateTime 7 157.48 cm 28.5 kg/m2 64115.4 1 g 99 /min 128 mm[Hg] 80 mm[Hg] Evelyn Dudley[employer] [facility] 7 09:20:32 Date Recorded Body height Body mass index (BMI) Body weight Heart rate Oxygen saturation Oxygen saturation in Arterial blood by Pulse oximetry Body temperature Systolic blood pressure Diastolic blood pressure Provider Name and Address Organization Details Last Updated DateTime 7 157.48 cm 27.3 kg/m2 20999.0 6 g 101 /min 94 % 94 % 98.7 [degF] 144 mm[Hg] 88 mm[Hg] Evelyn Teran [employer] [facility] 7 08:42:43 Date Recorded Body height Body mass index (BMI) Body weight Heart rate Oxygen saturation Oxygen saturation in Arterial blood by Pulse oximetry Body temperature Systolic blood pressure Diastolic blood pressure Provider Name and Address Organization Details Last Updated DateTime 7 157.48 cm 27.3 kg/m2 41953.3 6 g 113 /min 96 % 96 % 98.2 [degF] 132 mm[Hg] 80 mm[Hg] Evelyn Teran Huiyuanradha [facility] 7 16:11:40 Date Recorded Body height Body mass index (BMI) Body weight Heart rate Oxygen saturation Oxygen saturation in Arterial blood by Pulse oximetry Systolic blood pressure Diastolic blood pressure Provider Name and Address Organization Details Last Updated DateTime 7 157.48 cm 26.9 kg/m2 13473.0 8 g 93 /min 99 % 99 % 130 mm[Hg] 90 mm[Hg] Evelyn red [facility] 7 16:17:39 Date Recorded Body height Body mass index (BMI) Body weight Heart rate Oxygen saturation Oxygen saturation in Arterial blood by Pulse oximetry Systolic blood pressure Diastolic blood pressure Provider Name and Address Organization Details Last Updated DateTime 7 157.48 cm 25.7 kg/m2 20485.0 3 g 89 /min 98 % 98 % 144 mm[Hg] 88 mm[Hg] Evelyn Teran [facility] 7 08:46:14 Social History Question Answer Notes LastModified by Organizat ion Details LastModified Time Tobacco Smoking Status Current Every Day Smoker Previously quit 04/03/16. Maddison Ta [address], [address], [facility] 04/08/2016 21:10:44 Do You Have An Advance Directive? No Paper Work Provided 11/16/16 Information not available 11/16/2016 What Is Your Level Of Alcohol Consumption? None [email or web address] Information not available 09/18/2015 Which Illicit Or Recreational Drugs Have You Used? Denies [email or web address] Information not available 09/19/2015 Are There Any Guns Present In Your Home? No Information not available 07/20/2016 Dietary Regular Chicken And Fish, Does Not Like Red Meat Information not available 10/18/2015 Marital Status [email or web address] Informati on not available 09/18/2015 What Was The Date Of Your Most Recent Tobacco Screening? 04/21/2017 Information not available 11/30/2018 How Many Children Do You Have? 2 Youngest Son Biological And Oldest Son Adopted Information not available 10/18/2015 Seat Belts Used Routinely Yes Information not available 07/20/2016 Smoke Alarm In Home Yes Information not available 07/20/2016 At What Age Did You Start Smoking Tobacco? 20 [email or web address] Information not available 10/18/2015 How Much Tobacco Do You Smoke? 0.5 PPD 3 Cigarettes Daily [email or web address] Information not available 04/21/2017 Do You Use Sunscreen Routinely? Yes Information not available 07/20/2016 Sex: Unknown Functional Status Question Answer Note LastModified by Organization D etails LastModified Time What is your exercise level? None [email or web address] Information not available 10/18/2015 Mental Status None recorded. Family History Relationship Description Onset Age of this Age Resolved Age Notes LastModified by Organization Details LastModified Time Father Hypertensive disorder 65 Not available 2015 11:22:03 Father Heart disease Not available 2015 11:22:03 Father Rheumatoid arthritis [email or web address] Not available 2015 11:22:03 Mother Renal failure syndrome [email or web address] Not available 2015 11:22:03 Mother Hypertensive disorder [email or web address] Not available 2015 11:22:03 Mother Heart disease [email or web address] Not available 2015 11:22:03 Sister Deep venous thrombosis stent placem ent [email or web address] Not available 04/21/2017 10:18:13 Medical History Condition Response Muscle, Joint, or Bone Problems Y Blood Pressure High or Low Y Gynecological History Statement/Question Response Menses Monthly N Obstetrics History GPAL:G 1 P 0 0 0 1 Type Value Multiple Births 0 Full Term 0 Induced 0 Spontaneous 0 Premature 0 Living 1 Ectopics 0 Total 1 Immunizations Vaccine Type Date Status Note Provider Nam e and Address Organization Details Recorded Time Influenza, MDCK, quadrivalent, preservative 04/21/20 17 completed Not Available [facility] 05/27/2019 02:40:02 pneumococcal polysaccharide PPV23 04/21/20 17 completed Not Available [facility] 05/27/2019 02:40:02 Tdap 05/10/19 12 completed AMERICA Leavitt [address] [facility], [place], [address], [facility] 01/17/2016 08:58:39 Pneumococcal conjugate PCV 13 03/25/20 16 completed Not Available [facility] 06/10/2019 02:16:57 Influenza, high-dose, trivalent, PF 03/25/20 16 completed Not Available [facility] 06/10/2019 02:16:57 Past Encounters Encounter ID Performer Location Encounter Start Date Encounter Closed Date Diagnosis/Indication Diagnosis SNOMED-CT Code Diagnosis ICD10 Code Diagnosis Note [id number] AMERICA Leavitt Ulysses Rivera [employer] s [address] [place] [phone] 09/19/2015 10:47:43 09/19/2015 12:17:07 Pain 15600672 R52 Muscle spasm, cramps and joint pain. Broad ddx including electrolyt e abnormalit y, rheumatolo gic disorder, malignancy , GIB, small possibilit y this could be PMR. Will obtain labs now and call to f/u. Offered to start prednisone 20 mg one tab daily x 45 days and will call tomorrow. Patient and agree to plan. Abnormal b reath sounds 755107473 R09.89 Will hold off on CXR at this time. Will discuss obtaining LDCT once she is feeling better. Restless legs 03113124 G 25.81 She is asking to have gabapentin increased. She is currently on gabapentin 600 mg po 3 times a day. Therefore, we will increase to gabapentin 800 mg 3 times a day. F/u next ov. [id number] AMERICA Leavitt [facility]P [employer] s [address] [place] [phone] 09/23/2015 15:08:59 09/23/2015 16:27:42 Iron deficiency anemia 87169789 D50.9 09/23/15 Continue iron one tab BID. Repeat CBC and recheck counts in 2 weeks. Repeat iron panel in 4 weeks secondary to receiving IV iron. NOTE: She is scheduled for new patient visit 10/18/15. We will keep this and have her do the cbc and iron panel prior to this visit. Call for any signs of bleeding or reoccuring symptoms. Patient agrees with plan. Constipation 75143754 K5 9.00 Secondary to iron supplement . Pain 54325178 R52 Muscle spasm, cramps and joint pain. Broad ddx including electrolyt e abnormalit y, rheumatolo gic disorder, malignancy , GIB, small possibilit y this could be PMR. Will obtain labs now and call to f/u. Offered to start prednisone 20 mg one tab daily x 45 days and will call tomorrow. Patient and agree to plan. 09/23/15 Joint pains resolved. Recheck CCP and CRP. Refer to Rheumatkael gonzalez. Discuss at f/u. She will most likely have to travel. Consider [facility] n or [facility] d since she is from [place]. Edema 202571914 R60.9 Now trace. Continue to monitor. Elevate TID/PRN. Call for any increased swelling. Abnormal b reath sounds 000997515 R09.89 + smoker. Will discuss obtaining LDCT next ov. Restless legs 78772421 G 25.81 Gabapentin increased from 600 mg to 800 mg 3 times a day with good effect. Continue to monitor. [id number] AMERICA Leavitt [facility]P [employer] s [address] [place] [phone] 10/09/2015 09:36:24 10/09/2015 10:32:41 Hypomagnesemia 026005255 E83.42 Hyperlipidemia 81744954 E78.5 Pain 70913050 R52 Muscle spasm, cramps and joint pain. Broad ddx including electrolyt e abnormalit y, rheumatolo gic disorder, malignancy , GIB, small possibilit y this could be PMR. Will obtain labs now and call to f/u. Offered to start prednisone 20 mg one tab daily x 5 days and will call tomorrow. Patient and agree to plan. 09/23/15 Joint pains resolved. Recheck CCP and CRP. Refer to Dominik gonzalez. Discuss at f/u. She will most likely have to travel. Consider [facility] or [facility] d since she is from [place]. 10/09/15 Amenable to Dominik gonzalez. Start prednisone 40 mg x 5 days and then 20 mg x 5 days. RTC 10/18/15. Iron defic iency anemia 08064590 D50.9 09/23/15 Continue iron one tab BID. Repeat CBC and recheck counts in 2 weeks. Repeat iron panel in 4 weeks secondary to receiving IV iron. NOTE: She is scheduled for new patient visit 10/18/15. We will keep this and have her do the cbc and iron panel prior to this visit. Call for any signs of bleeding or reoccuring symptoms. Patient agrees with plan. 10/09/15 Will get CBC and call to f/u. Otherwise, labs as noted above prior to next ov. [id number] AMERICA Leavitt CHP [employer] s [address] [place] [address] 10/18/2015 10:35:56 10/18/2015 11:59:47 Smoker 11077034 F17.200 She plans on trying the nicotine lozenges. Pain 14790268 R52 Muscle spasm, cramps and joint pain. Broad ddx including electrolyt e abnormalit y, rheumatolo gic disorder, malignancy , GIB, small possibilit y this could be PMR. Will obtain labs now and call to f/u. Offered to start prednisone 20 mg one tab daily x 5 days and will call tomorrow. Patient and agree to plan. 09/23/15 Joint pains resolved. Recheck CCP and CRP. Refer to Dominik gonzalez. Discuss at f/u. She will most likely have to travel. [facility] from [place]. 10/09/15 Amenable to Dominik gonzalez. Start prednisone 40 mg x 5 days and then 20 mg x 5 days. RTC 10/18/15. 10/18/15 Awaiting call from Dominik gonzalez Bastian . Informatio n provided for Dr. Jennifer mann in [facility]. Another trial of lower dose prednisone . Constipation 41686220 K5 9.00 Secondary to iron supplement . Contact Dr. Almonte for any worsening symptoms. Iron defic iency anemia 86021401 D50.9 09/23/15 Continue iron one tab BID. Repeat CBC and recheck counts in 2 weeks. Repeat iron panel in 4 weeks secondary to receiving IV iron. NOTE: She is scheduled for new patient visit 10/18/15. We will keep this and have her do the cbc and iron panel prior to this visit. Call for any signs of bleeding or reoccuring symptoms. Patient agrees with plan. 10/18/15 Improved. Continue current dose. Recheck labs one month Edema 892694106 R60.9 Now trace. Continue to monitor. Elevate TID/PRN. Call for any increased swelling. 10/18/15 Instructio ns as above. Hypertensive disorder 38 198525 I10 Borderline today. She smoked just prior to coming in. Continue to monitor. She is currently not on any medication s. [id number] AMERICA Leavitt CHP [employer] s [address] [place] [phone] 01/17/2016 08:25:13 01/17/2016 09:36:59 Hypertensive disorder 79893942 I10 Borderline today. She smoked just prior to coming in. Continue to monitor. She is currently not on any medication s.01/16/16 Same today. Continue to monitor. Pain 85671509 R52 Muscle spasm, cramps and joint pain. Broad ddx including electrolyt e abnormalit y, rheumatolo gic disorder, malignancy , GIB, small possibilit y this could be PMR. Will obtain labs now and call to f/u. Offered to start prednisone 20 mg one tab daily x 5 days and will call tomorrow. Patient and agree to plan. Joint pains resolved. Recheck CCP and CRP. Refer to Rheumatkael gonzalez. Discuss at f/u. She will most likely have to travel. Consider [facility] n or [facility] d since she is from [place]. 10/09/15 Amenable to Rheumatkael gonzalez. Start prednisone 40 mg x 5 days and then 20 mg x 5 days. RTC 10/18/15. 10/18/15 Awaiting call from Rheumatkael gonzalez Bastian . Informatio n provided for Dr. Jennifer mann in [facility]. Another trial of lower dose prednisone .01/17/16 She has had elevated inflammato ry markers. She has been taking prednisone taper on occasion with good effect. She met with Dr. Jenkins yesterday and had multiple labs. She is scheduled to f/u with him on 04/16/16. She was started on prednisone 5 mg daily. She states worsening spasms with prednisone . She states they become faster so she plans on taking prednisone only with worsening swelling or knee pain which prevents her from walking. Joint pain is intermitte nt. right hand, index finger is always swollen and she cannot actively bend it. She states Dr. Arora was able to passively bend it. Joint pain 39423146 M25. 50 01/17/16 Prednisone is effective for joint pain. Iron defic iency anemia 52379820 D50.9 09/23/15 Continue iron one tab BID. Repeat CBC and recheck counts in 2 weeks. Repeat iron panel in 4 weeks secondary to receiving IV iron. NOTE: She is scheduled for new patient visit 10/18/15. We will keep this and have her do the cbc and iron panel prior to this visit. Call for any signs of bleeding or reoccuring symptoms. Patient agrees with plan. Improved. Continue current dose. Recheck labs one month. Dr. Arora did repeat CBCw/diff yesterday. He will forward results. Call to f/u Edema 197003608 R60.9 Now trace. Continue to monitor. Elevate TID/PRN. Call for any increased swelling. 10/18/15 Instructio ns as above. Currently denies. Continue to monitor. call with worsening symptoms. Constipation 24122688 K5 9.00 Secondary to iron supplement . Contact Dr. Almonte for any worsening symptoms. Controlled with metamucil or colace daily. Smoker 41353039 F17.200 She plans on trying the nicotine lozenges. She is down to 5 cigarettes daily. Encouraged continued efforts to quit. Restless legs 47977981 G 25.81 Gabapentin increased from 600 mg to 800 mg 3 times a day with good effect. Continue to monitor.01/17/16 Take 1.5 tablets at 4 pm and then take 1.5 tablets 2 hours prior to bedtime per Up-to-date recommenda tions. Instructed to call in one week if no effect. Screening for malignant neoplasm of breast 288678147 Z12.31 She would like to have mammo in [facility]. She is going back for labs next week and will request then. Exposure t o Hepatitis C virus 445012241 Z20.5 She is having screening completed by Dr. Arora. Administra tion of influenza vaccine 38820011 Z23 She plans on having at [facility] d/t complete coverage. Screening for osteoporosis 714795752 Z13.820 She would like to have in [facility]. She is going back for labs next week and will request then. [id number] AMERICA Leavitt Ulysses Rivera It Technical Support Specialist [address] [phone] 04/08/2016 09:25:36 04/08/2016 10:56:31 Osteoporosis 11789457 M81.0 She reports she was told not to take calcium or vitamin d in the past.She is taking magnesium at night. Edentulous .Amenable to starting Fosamax. Hold and complete labs and f/u. Iron defic iency anemia 70864267 D50.9 09/23/15 Continue iron one tab BID. Repeat CBC and recheck counts in 2 weeks. Repeat iron panel in 4 weeks secondary to receiving IV iron. NOTE: She is scheduled for new patient visit 10/18/15. We will keep this and have her do the cbc and iron panel prior to this visit. Call for any signs of bleeding or reoccuring symptoms. Patient agrees with plan. Improved. Continue current dose. Recheck labs one month. Dr. Arora did repeat CBCw/diff yesterday. He will forward results. Call to f/u. worsening RLS. Repeat labs and call to f/u. Hypomagnesemia 367627212 E83.42 04/08/16 worsening RLS. Repeat labs and call to f/u. Hypertensive disorder 38 222170 I10 Reasonable . She is currently not taking anything. Restless legs 27580003 G 25.81 Gabapentin increased from 600 mg to 800 mg 3 times a day with good effect. Continue to monitor.01/17/16 Take 1.5 tablets at 4 pm and then take 1.5 tablets 2 hours prior to bedtime per Up-to-date recommenda tions. Instructed to call in one week if no effect. Uncontroll ed and becoming worse and also during daytime hours as well. Checking labs and call to f/u. She is currently taking 2,400 mg daily. [id number] AMERICA Leavitt Ulysses Rivera It Technical Support Specialist s [address] [place] [phone] 04/20/2016 08:30:02 04/20/2016 09:51:39 Hypomagnesemia 088239258 E83.42 04/08/16 worsening RLS. Repeat labs and call to f/u. mag WNL. Continue mag 400 mg daily. Continue to monitor. Osteoporosis 92362144 M8 1.0 She reports she was told not to take calcium or vitamin d in the past.She is taking magnesium at night. Edentulous .Amenable to starting Fosamax. Hold and complete labs and f/u. Tolerating Fosamax thus far. Adequate dietary calcium, currently repleting vitamin d with high dose and vitamin d 2,000 units daily. Encouraged weight bearing exercises. BMD due in 2019. Iron defic iency anemia 36369165 D50.9 09/23/15 Continue iron one tab BID. Repeat CBC and recheck counts in 2 weeks. Repeat iron panel in 4 weeks secondary to receiving IV iron. NOTE: She is scheduled for new patient visit 10/18/15. We will keep this and have her do the cbc and iron panel prior to this visit. Call for any signs of bleeding or reoccuring symptoms. Patient agrees with plan. Improved. Continue current dose. Recheck labs one month. Dr. Arora did repeat CBCw/diff yesterday. He will forward results. Call to f/u. worsening RLS. Repeat labs and call to f/u. Stable. Continue to monitor. Review labs from Dr. Arora. Restless legs 60426966 G 25.81 Gabapentin increased from 600 mg to 800 mg 3 times a day with good effect. Continue to monitor.01/17/16 Take 1.5 tablets at 4 pm and then take 1.5 tablets 2 hours prior to bedtime per Up-to-date recommenda tions. Instructed to call in one week if no effect. Uncontroll ed and becoming worse and also during daytime hours as well. Checking labs and call to f/u. She is currently taking 2,400 mg daily.04/09 06/25 Improved. Gabapentin was increased to 800 mg 1 tab in am, 1.5 at 4pm and 1.5 2 hours prior to HS. So now at 3200 mg daily. Rheumatoid arthritis [address] Jenkins on 04/16/16 and he started her on methotrexa te 2.5 mg four tabs once a week and folic acid 1 mg daily. She is having worsening hand pain today. She did take prednisone this morning. Abnormal weight gain 161 546970 R63.5 She has developed pain over the past several years and therefore has not been as active as she once was. Counseling provided. We discussed swimming and stationary bike. She would have to learn how to swim if she does pursue water aerobics, but is open to the idea. Will re-check TSH in the interim. Screening for malignant neoplasm of respiratory tract 254166914 Z12.2 Counseling provided. Declines screening at this time. Hyperlipidemia 18098730 E78.5 03/2015 LDL 81, HDL 70 Trigs WNL and she has quit smoking. Will continue to monitor. Adult [facility] th examination 295318749 Z00.00 Overweight . Bilateral hand swelling and decreased ROM. Overweight 209350183 E66 .3 She has developed pain over the past several years and therefore has not been as active as she once was. Counseling provided. We discussed swimming and stationary bike. She would have to learn how to swim if she does pursue water aerobics, but is open to the idea. Will re-check TSH in the interim. Administra tion of pneumococcal vaccine 50248745 Z23 pneumovax due . [id number] AMERICA Leavitt Ulysses Rivera It Technical Support Specialist s [address] [place] [phone] 07/20/2016 08:27:12 07/20/2016 09:27:37 Osteoporosis 65371658 M81.0 She reports she was told not to take calcium or vitamin d in the past.She is taking magnesium at night. Edentulous .Amenable to starting Fosamax. Hold and complete labs and f/u. Tolerating Fosamax thus far. Adequate dietary calcium, currently repleting vitamin d with high dose and vitamin d 2,000 units daily. Encouraged weight bearing exercises. BMD due in 2018. no change. Continue as above. Restless legs 30815377 G 25.81 Gabapentin increased from 600 mg to 800 mg 3 times a day with good effect. Continue to monitor.01/17/16 Take 1.5 tablets at 4 pm and then take 1.5 tablets 2 hours prior to bedtime per Up-to-date recommenda tions. Instructed to call in one week if no effect. Uncontroll ed and becoming worse and also during daytime hours as well. Checking labs and call to f/u. She is currently taking 2,400 mg daily.04/09 06/25 Improved. Gabapentin was increased to 800 mg 1 tab in am, 1.5 at 4pm and 1.5 2 hours prior to HS. So now at 3200 mg daily.07/20 Effective. Continue as above. Iron defic iency anemia 19775075 D50.9 09/23/15 Continue iron one tab BID. Repeat CBC and recheck counts in 2 weeks. Repeat iron panel in 4 weeks secondary to receiving IV iron. NOTE: She is scheduled for new patient visit 10/18/15. We will keep this and have her do the cbc and iron panel prior to this visit. Call for any signs of bleeding or reoccuring symptoms. Patient agrees with plan. Improved. Continue current dose. Recheck labs one month. Dr. Arora did repeat CBCw/diff yesterday. He will forward results. Call to f/u. worsening RLS. Repeat labs and call to f/u. Stable. Continue to monitor. Review labs from Dr. Arora.07/20/16 No recent labs available. Will check levels now and call to f/u. Continue iron 325 mg bid. Hypomagnesemia 147633003 E83.42 04/08/16 worsening RLS. Repeat labs and call to f/u. mag WNL. Continue mag 400 mg daily. Continue to monitor. Will update level since she is having intermitte nt severe pain. Rheumatoid arthritis 698 [address] Jenkins on 04/16/16 and he started her on methotrexa te 2.5 mg four tabs once a week and folic acid 1 mg daily. She is having worsening hand pain today. She did take prednisone this morning. 07/20/[address] Issa last week. I will request notes. Continues with severe intermitte nt pain and weight gain with steroid. Frustrated . Encouraged to call to f/u. Abnormal weight gain 161 852975 R63.5 She has developed pain over the past several years and therefore has not been as active as she once was. Counseling provided. We discussed swimming and stationary bike. She would have to learn how to swim if she does pursue water aerobics, but is open to the idea. Will re-check TSH in the interim. TSh was normal in Dec, but she continues to gain weight. Most likely d/t steroid and lack of exercise. Tsh. Continue to monitor. Screening for malignant neoplasm of respiratory tract 345821369 Z12.2 Counseling provided. Declines screening at this time. Hyperlipidemia 59196982 E78.5 03/2015 LDL 81, HDL 70 Trigs WNL and she has quit smoking. Will continue to monitor. Rechecking now. Call to f/u. Continue pravastati n 40 mg daily. Overweight 187862218 E66 .3 She has developed pain over the past several years and therefore has not been as active as she once was. Counseling provided. We discussed swimming and stationary bike. She would have to learn how to swim if she does pursue water aerobics, but is open to the idea. Will re-check TSH in the interim. TSh was normal in Apr, but she continues to gain weight and is now reporting pills getting stuck and possible thyroid enlargemen t. Re-checkin g tsh. Recommend thyroid u/s but cannot afford at this time. Calling Dr. Almonte to discuss dysphagia. Restarting omeprazole 20 mg daily. Administra tion of pneumococcal vaccine 10842206 Z23 pneumovax due Sep, 2016. Vitamin D deficiency 347 27814 E55.9 Level was 10 at the end of Mar and for some reason another level was drawn early at the end of April and 35 after only one month of high dose. Gastroesop hageal reflux disease 807395250 K21.9 Swelling 00005476 R60.9 Also c/o pills getting stuck. Occasional ly choking on liquid. Most likely subcutaneo us tissue. Recommend u/s to r/o any thyroid d/o. Hx of weight gain. She would like to hold off for now d/t financials . Dysphagia 72976951 R13.1 0 New history of pills getting stuck. Occasional ly choking on liquid. Denies any food becoming stuck. She is sitting up. She reports swelling in lower neck. Severe heartburn. She is taking Pepto with good effect. She will call Dr. Almonte for ov aby. [id number] AMERICA Leavitt Ulysses Rivera It Technical Support Specialist s [address] [place] [address] [place] [address] 11/16/2016 09:06:32 11/16/2016 10:29:28 Osteoporosis 70378509 M81.0 2015 She reports she was told not to take calcium or vitamin d in the past.She is taking magnesium at night. Edentulous . Amenable to starting Fosamax. Hold and complete labs and f/u. Tolerating Fosamax thus far. Adequate dietary calcium, currently repleting vitamin d with high dose and vitamin d 2,000 units daily. Encouraged weight bearing exercises. BMD due in 2018. no change. Continue as above.11/16 No change. Needs PTH updated. Continue fosamax. Restless legs 58630032 G 25.81 2015 Gabapentin increased from 600 mg to 800 mg 3 times a day with good effect. Continue to monitor.01/17/16 Take 1.5 tablets at 4 pm and then take 1.5 tablets 2 hours prior to bedtime per Up-to-date recommenda tions. Instructed to call in one week if no effect. Uncontroll ed and becoming worse and also during daytime hours as well. Checking labs and call to f/u. She is currently taking 2,400 mg daily.04/09 06/25 Improved. Gabapentin was increased to 800 mg 1 tab in am, 1.5 at 4pm and 1.5 2 hours prior to HS. So now at 3200 mg daily.07/20 Effective. Continue as above.11/16 Stable. Continue gabapentin . Call with any changes. Iron defic iency anemia 50080827 D50.9 09/23/15 Continue iron one tab BID. Repeat CBC and recheck counts in 2 weeks. Repeat iron panel in 4 weeks secondary to receiving IV iron. NOTE: She is scheduled for new patient visit 10/18/15. We will keep this and have her do the cbc and iron panel prior to this visit. Call for any signs of bleeding or reoccuring symptoms. Patient agrees with plan. Improved. Continue current dose. Recheck labs one month. Dr. Arora did repeat CBCw/diff yesterday. He will forward results. Call to f/u. worsening RLS. Repeat labs and call to f/u. Stable. Continue to monitor. Review labs from Dr. Arora.07/20/16 No recent labs available. Will check levels now and call to f/u. Continue iron 325 mg bid. 7 Improving. Continue iron 2 tabs daily until ferritin is >30. Will check in Jan since her next visit is not until April. Call to f/u. She will remain off aspirin until cbc normalizes . Patient agrees with plan. Hypomagnesemia 181107360 E83.42 04/08/16 worsening RLS. Repeat labs and call to f/u. mag WNL. Continue mag 400 mg daily. Continue to monitor. Will update level since she is having intermitte nt severe pain. continue mag oxide 400 mg daily. Most recent level was 2.6 in July,. Rheumatoid arthritis 698 [address]179 M06.[address] Jenkins on 04/16/16 and he started her on methotrexa te 2.5 mg four tabs once a week and folic acid 1 mg daily. She is having worsening hand pain today. She did take prednisone this morning. 07/20/[address] Issa last week. I will request notes. Continues with severe intermitte nt pain and weight gain with steroid. Frustrated . Encouraged to call to f/u. 7 Generally well controlled on methotrexa te. Refusing to take prednisone unless she absolutely needs it. She states Dr. Issa is aware. Next f/u with him is at the end of February. We'll re-check labs at the end of Jan. Abnormal weight gain 161 620183 R63.5 2015 She has developed pain over the past several years and therefore has not been as active as she once was. Counseling provided. We discussed swimming and stationary bike. She would have to learn how to swim if she does pursue water aerobics, but is open to the idea. Will re-check TSH in the interim. TSh was normal in Apr, but she continues to gain weight. Most likely d/t steroid and lack of exercise. Tsh. Continue to monitor.02/23 TSH wnl. Gained another 2 lbs since July. Not taking prednisone . Not exercising , but monitoring diet. Continue to monitor. Screening for malignant neoplasm of respiratory tract [id number] Z12.2 Counseling provided. Declines screening at this time. Hyperlipidemia 77746882 E78.5 03/2015 LDL 81, HDL 70 Trigs WNL and she has quit smoking. Will continue to monitor. Rechecking now. Call to f/u. Continue pravastati n 40 mg daily. Overweight 439276113 E66 .3 2015 She has developed pain over the past several years and therefore has not been as active as she once was. Counseling provided. We discussed swimming and stationary bike. She would have to learn how to swim if she does pursue water aerobics, but is open to the idea. Will re-check TSH in the interim. TSh was normal in Apr, but she continues to gain weight and is now reporting pills getting stuck and possible thyroid enlargemen t. Re-checkin g tsh. Recommend thyroid u/s but cannot afford at this time. Calling Dr. Almonte to discuss dysphagia. Restarting omeprazole 20 mg daily.11/16 Encouraged exercise. Continue with diet mods. Administra tion of pneumococcal vaccine 07099524 Z23 pneumovax due Mar, 2017. Vitamin D deficiency 347 08872 E55.9 2016 Level was 10 at the end of Mar and for some reason another level was drawn early at the end of April and 35 after only one month of high dose. She states she was informed that she could discontinu e vitamin D supplement since her level was 35 in April. We will recheck prior to her visit in April 2017. Suspect she was under the impression she would stop vitamin d3 2,000 units daily since she was stopping the vitamin d 50,ooo units weekly. Gastroesop hageal reflux disease 249778432 K21.9 Dysphagia 61913321 R13.1 0 11/16/16 Resolved since starting omeprazole . Continue to monitor. Refer back to GI with any recurring symptoms. New history of pills getting stuck. Occasional ly choking on liquid. Denies any food becoming stuck. She is sitting up. She reports swelling in lower neck. Severe heartburn. She is taking Pepto with good effect. She will call Dr. Almonte for ov aby. Cobalamin deficiency 190 844286 E53.8 Constipation 80066717 K5 9.00 2015 Secondary to iron supplement . Contact Dr. Almonte for any worsening symptoms. Controlled with metamucil or colace daily.11/16 Stable. As above. Nicotine dependence 5629 4008 F17.200 Cessation advised. [id number] AMERICA Leavitt Ulysses Rivera [employer] s [address] [place] [address] NATHANAEL RIVERA [phone] 12/23/2016 08:34:42 12/23/2016 09:28:44 Rib pain 219733453 R07.81 12/23/16 Left posterior ribs 5 - 9 CT 12/02/16. Pain well controlled with tramadol and Tylenol. Recommende d she take tramadol aby and continue as needed. She is well aware of potential side effects and she will continue to attempt to use sparingly. Chronic ob structive pulmonary disease 93306116 J44.9 12/23/16 She must reschedule appt with Trauma and will be having CXR so we'll wait for the results, review for any signs of COPD. Suspect exacerbati on which lead to ER visit most likely d/t undiagnose d COPD. Unfortunat tanna, she has too much pain at this time so we have to hold off on PFT's until pain has resolved. We'll schedule a visit in 6 weeks for general f/u and PFT's. She will call sooner if she feels up to it. She will continue with albuterol INH prn for now. Pneumonia 613303916 J18. 9 12/23/16 Improved. Counseling , education and instructio ns provided re: use of IS. Use 10x/hr while awake as tolerated. Admits IS is at home but they will p/u to bring to daughter-i n-law's. Call with any fevers, chills, worsening cough, sob, sputum production , wheeze, weakness, fatigue. Smoker 89439368 F17.200 12/23/16 Quit 03/2016. But has been smoking 3 - 5 cigarettes daily. She plans on trying the nicotine lozenges. She is down to 5 cigarettes daily. Encouraged continued efforts to quit. Dyspnea 244257801 R06.00 Edema of l ower extremity 883703705 R60.0 Conservati ve measures. Will try stockings. checking echo. Elevated blood-pressure reading without diagnosis of hypertension 364952043 R03.0 12/23/16 Currently having moderate amount of pain. Daughter-kylie boo does have mannual cuff and will check readings. She states she is well versed on BP home monitoring . Instructed to call with BP readings sustained >140/90. [id number] [employer] Leav[employer] [facility] [employer] [address] [place] [phone] 01/01/2017 16:02:03 01/01/2017 17:10:31 Elevated blood-pressure reading without diagnosis of hypertension 311526999 R03.0 01/01/17 Reasonable today. Continue to monitor. Currently having moderate amount of pain. Daughter-kylie boo does have manual cuff and will check readings. She states she is well versed on BP home monitoring . Instructed to call with BP readings sustained >140/90. Chronic ob structive pulmonary disease 85331321 J44.9 01/01/17 No formal dx. Still need PFT's. No mention of any evidence on recent chest imaging. She will need nebulizer ordered once dx is establishe d.12/23/16 She must reschedule appt with Trauma and will be having CXR so we'll wait for the results, review for any signs of COPD. Suspect exacerbati on which lead to ER visit most likely d/t undiagnose d COPD. Unfortunat tanna, she has too much pain at this time so we have to hold off on PFT's until pain has resolved. We'll schedule a visit in 6 weeks for general f/u and PFT's. She will call sooner if she feels up to it. She will continue with albuterol INH prn for now. Smoker 00160751 F17.200 01/01/17 as noted below..Nasim rocha advised. Quit 03/2016. But has been smoking 3 - 5 cigarettes daily. She plans on trying the nicotine lozenges. She is down to 5 cigarettes daily. Encouraged continued efforts to quit. Edema of l ower extremity 118861909 R60.0 01/01/17 worse. Acute onset RLE this am, pain. Sending to er.12/23/16 Conservati ve measures. Will try stockings. checking echo. Rib pain 294934556 R07.8 1 01/01/17 controlled with tramadol. She will need to taper off. 7 Left posterior ribs 5 - 9 CT 12/02/16. Pain well controlled with tramadol and Tylenol. Recommende d she take tramadol aby and continue as needed. She is well aware of potential side effects and she will continue to attempt to use sparingly. Dyspnea 416649826 R06.00 could possibly perform pft's today but will not be beneficial at this time d/t priority to r/o PE/DVT. Sending to ER. [id number] [employer] Leavitt Ulysses Rivera [employer] Support [employer]ist s [address] [place] [phone] 02/04/2017 16:04:28 02/05/2017 08:43:30 Edema of lower extremity 878656200 R60.0 02/04/2017 much improved. Continue Lifestyle modificati ons and continue to monitor and call with any changes. worse. Acute onset RLE this am, pain. Sending to er.12/23/16 Conservati ve measures. Will try stockings. checking echo. Dyspnea 322734228 R06.00 02/04/17 PFT's today are showing restrictio n which could possibly be d/t the fact that she still cannot get a good deep breath s/p rib fx's/PNA. CT chest in 12/02/2016 revealed Interval developmen t of small dependent bilateral pleural effusions and dense focal bibasilar atelectasi s and scattered groundglas s opacities in the right lung which may represent developing pneumonia. No change in previously described left rib fractures and no pneumothor ax. She had a follow-up chest x-ray with trauma on 12/15/2016 which revealed redemonstr ation of fractures of them mid left ribs and minimal left pleural effusion. No evidence of pneumothor ax. She is amenable to repeating CT chest w/out contrast. Requesting a call from us once CT is scheduled. Call to f/u and schedule f/u accordingl y.01/01/17 could possibly perform pft's today but will not be beneficial at this time d/t priority to r/o PE/DVT. Sending to ER. Elevated blood-pressure reading without diagnosis of hypertension 649019599 R03.0 02/04/17 slightly elevated but still reasonable considerin g her age. Continue to monitor. Reasonable today. Continue to monitor. Currently having moderate amount of pain. Daughter-i n -law does have manual cuff and will check readings. She states she is well versed on BP home monitoring . Instructed to call with BP readings sustained >140/90. Chronic ob structive pulmonary disease 87766617 J44.9 02/04/17 PFTs today reveal restrictiv e pattern. We will be updating a chest CT and follow-up accordingl y. She has no formal diagnosis at this time. No formal dx. Still need PFT's. No mention of any evidence on recent chest imaging. She will need nebulizer ordered once dx is establishe d.12/23/16 She must reschedule appt with Trauma and will be having CXR so we'll wait for the results, review for any signs of COPD. Suspect exacerbati on which lead to ER visit most likely d/t undiagnose d COPD. Unfortunat tanna, she has too much pain at this time so we have to hold off on PFT's until pain has resolved. We'll schedule a visit in 6 weeks for general f/u and PFT's. She will call sooner if she feels up to it. She will continue with albuterol INH prn for now. Smoker 79809827 F17.200 02/04/17 cessation advised. as noted below. Cessation advised. Quit 03/2016. But has been smoking 3 - 5 cigarettes daily. She plans on trying the nicotine lozenges. She is down to 5 cigarettes daily. Encouraged continued efforts to quit. Rib pain 898421932 R07.8 1 02/04/17 continues to improve. She is taking tramadol on a rare occasion, but she is trying to avoid altogether .01/01/17 controlled with tramadol. She will need to taper off. 7 Left posterior ribs 5 - 9 CT 12/02/16. Pain well controlled with tramadol and Tylenol. Recommende d she take tramadol aby and continue as needed. She is well aware of potential side effects and she will continue to attempt to use sparingly. Restless legs 45649176 G 25.81 2015 Gabapentin increased from 600 mg to 800 mg 3 times a day with good effect. Continue to monitor.01/17/16 Take 1.5 tablets at 4 pm and then take 1.5 tablets 2 hours prior to bedtime per Up-to-date recommenda tions. Instructed to call in one week if no effect. Uncontroll ed and becoming worse and also during daytime hours as well. Checking labs and call to f/u. She is currently taking 2,400 mg daily.04/09 06/25 Improved. Gabapentin was increased to 800 mg 1 tab in am, 1.5 at 4pm and 1.5 2 hours prior to HS. So now at 3200 mg daily.07/20 Effective. Continue as above.11/16 Stable. Continue gabapentin . Call with any changes. Amenable to trying new med. She did have AE with requip, made me crazy . we will have to discuss trying Mirapex. She will need to taper off gabapentin . Pruritic disorder 359850 002 L29.9 BLE's. She will continue to maintain moisturiza tion and she can try sarna lotion. Rheumatoid arthritis 698 [address]752 M06.[address] Jenkins on 04/16/16 and he started her on methotrexa te 2.5 mg four tabs once a week and folic acid 1 mg daily. She is having worsening hand pain today. She did take prednisone this morning. 07/20/[address] Issa last week. I will request notes. Continues with severe intermitte nt pain and weight gain with steroid. Frustrated . Encouraged to call to f/u. 7 Generally well controlled on methotrexa te. Refusing to take prednisone unless she absolutely needs it. She states Dr. Issa is aware. Next f/u with him is at the end of February. We'll re-check labs at the end of Jan.. She continues on methotrexa te. She is awaiting to establish with a new rheumatolo gist in March since Dr. Arora is leaving the practice. Coronary atherosclerosis 220244382 I25.10 02/04/17 CT chest In November w/ Mild atheroscle rosis of coronary arteries. She continues on pravastati n 40 mg daily. Aspirin is currently on hold. Iron defic iency anemia 29357751 D50.9 09/23/15 Continue iron one tab BID. Repeat CBC and recheck counts in 2 weeks. Repeat iron panel in 4 weeks secondary to receiving IV iron. NOTE: She is scheduled for new patient visit 10/18/15. We will keep this and have her do the cbc and iron panel prior to this visit. Call for any signs of bleeding or reoccuring symptoms. Patient agrees with plan. Improved. Continue current dose. Recheck labs one month. Dr. Arora did repeat CBCw/diff yesterday. He will forward results. Call to f/u. worsening RLS. Repeat labs and call to f/u. Stable. Continue to monitor. Review labs from Dr. Arora.07/20/16 No recent labs available. Will check levels now and call to f/u. Continue iron 325 mg bid. 7 Improving. Continue iron 2 tabs daily until ferritin is >30. Will check in Jan since her next visit is not until April. Call to f/u. She will remain off aspirin until cbc normalizes . Patient agrees with plan. CBC stable. Iron is borderline normal. States compliance w/2 tabs of iron daily. Denies any signs of bleeding. She had come off asa to see if it would improve cbc but really no change yet. Will continue to monitor. Psoriatic arthritis 1563 38925 L40.50 see RA Vitamin D deficiency 347 79740 E55.9 2016 Level was 10 at the end of Mar and for some reason another level was drawn early at the end of April and 35 after only one month of high dose. She states she was informed that she could discontinu e vitamin D supplement since her level was 35 in April. We will recheck prior to her visit in April 2017. Suspect she was under the impression she would stop vitamin d3 2,000 units daily since she was stopping the vitamin d 50,ooo units weekly.01/09 12/24 Needs repeated. Cobalamin deficiency 190 666807 E53.8 [facility] 6699 9008 E21.3 [id number] [employer] Leavitt [employer] s [address] [place] [phone] 04/21/2017 08:31:53 04/21/2017 10:45:12 Influenza vaccine needed [id number] 106 Z23 Administra tion of pneumococcal vaccine 05644282 Z23 Hyperparathyroidism 6699 9008 E21.3 Elevated PTH. Vit d3 is not significan tly low, calcium is normal. Referring to Endocrinol madhuri for eval. Dyspnea 386725832 R06.00 04/21/[address] in February due to persistent dyspnea, which revealed healing bilateral rib fractures, otherwise unremarkab le. Patient states breathing is back to baseline. She admits to taking albuterol 2 puffs on rare occasion with good effect. Recalls butler with walking too fast and with anxiety. No formal dx of copd. Call with any uncontroll ed or worsening symptoms. PFT's today are showing restrictio n which could possibly be d/t the fact that she still cannot get a good deep breath s/p rib fx's/PNA. CT chest in 12/02/2016 revealed Interval developmen t of small dependent bilateral pleural effusions and dense focal bibasilar atelectasi s and scattered groundglas s opacities in the right lung which may represent developing pneumonia. No change in previously described left rib fractures and no pneumothor ax. She had a follow-up chest x-ray with trauma on 12/15/2016 which revealed redemonstr ation of fractures of them mid left ribs and minimal left pleural effusion. No evidence of pneumothor ax. She is amenable to repeating CT chest w/out contrast. Requesting a call from us once CT is scheduled. Call to f/u and schedule f/u accordingl y.01/01/17 could possibly perform pft's today but will not be beneficial at this time d/t priority to r/o PE/DVT. Sending to ER. Edema of l ower extremity 252810032 R60.0 04/21/17 Currently asymptomat ic. 017 much improved. Continue Lifestyle modificati ons and continue to monitor and call with any changes. worse. Acute onset RLE this am, pain. Sending to er.12/23/16 Conservati ve measures. Will try stockings. checking echo. Elevated blood-pressure reading without diagnosis of hypertension 847660879 R03.0 04/21/17 Home readings are borderline . New guidelines reviewed. She will perform home monitoring and call if sustained readings >130/80. 02/04/17 slightly elevated but still reasonable considerin g her age. Continue to monitor. Reasonable today. Continue to monitor. Currently having moderate amount of pain. Daughter-i n -law does have manual cuff and will check readings. She states she is well versed on BP home monitoring . Instructed to call with BP readings sustained >140/90. Smoker 77019757 F17.200 04/21/17 Cessation advised. Continues to work on quitting. maintainin g 3 cigarettes daily at this point. 02/04/17 cessation advised. as noted below. Cessation advised. Quit 03/2016. But has been smoking 3 - 5 cigarettes daily. She plans on trying the nicotine lozenges. She is down to 5 cigarettes daily. Encouraged continued efforts to quit. Rib pain 474094702 R07.8 1 04/21/17 Resolved. continues to improve. She is taking tramadol on a rare occasion, but she is trying to avoid altogether .01/01/17 controlled with tramadol. She will need to taper off. 7 Left posterior ribs 5 - 9 CT 12/02/16. Pain well controlled with tramadol and Tylenol. Recommende d she take tramadol aby and continue as needed. She is well aware of potential side effects and she will continue to attempt to use sparingly. Restless legs 92402276 G 25.81 2016 Gabapentin increased from 600 mg to 800 mg 3 times a day with good effect. Continue to monitor.01/17/16 Take 1.5 tablets at 4 pm and then take 1.5 tablets 2 hours prior to bedtime per Up-to-date recommenda tions. Instructed to call in one week if no effect. Uncontroll ed and becoming worse and also during daytime hours as well. Checking labs and call to f/u. She is currently taking 2,400 mg daily.04/09 06/25 Improved. Gabapentin was increased to 800 mg 1 tab in am, 1.5 at 4pm and 1.5 2 hours prior to HS. So now at 3200 mg daily.07/20 Effective. Continue as above.11/16 Stable. Continue gabapentin . Call with any changes. Amenable to trying new med. She did have AE with requip, made me crazy . we will have to discuss trying Mirapex. She will need to taper off gabapentin .04/21/17 off gabapentin . Mirapex 0.125 mg tab daily with good effect. Pruritic disorder 011257 002 L29.9 04/21/17 Resolved. Sarna lotion with good effect.01/08 7 BLE's. She will continue to maintain moisturiza tion and she can try sarna lotion. Iron defic iency anemia 78313543 D50.9 09/23/15 Continue iron one tab BID. Repeat CBC and recheck counts in 2 weeks. Repeat iron panel in 4 weeks secondary to receiving IV iron. NOTE: She is scheduled for new patient visit 10/18/15. We will keep this and have her do the cbc and iron panel prior to this visit. Call for any signs of bleeding or reoccuring symptoms. Patient agrees with plan. Improved. Continue current dose. Recheck labs one month. Dr. Arora did repeat CBCw/diff yesterday. He will forward results. Call to f/u. worsening RLS. Repeat labs and call to f/u. Stable. Continue to monitor. Review labs from Dr. Arora.07/20/16 No recent labs available. Will check levels now and call to f/u. Continue iron 325 mg bid. 7 Improving. Continue iron 2 tabs daily until ferritin is >30. Will check in Jan since her next visit is not until April. Call to f/u. She will remain off aspirin until cbc normalizes . Patient agrees with plan. CBC stable. Iron is borderline normal. States compliance w/2 tabs of iron daily. Denies any signs of bleeding. She had come off asa to see if it would improve cbc but really no change yet. Will continue to monitor. Ferritin is back down to 15 w/stable iron sat. Continue iron 2 tabs daily. She will remain off asa d/t hx of stomach ulcer. There is no change. Rheumatoid arthritis 698 27833 M06.[address] Jenkins on 04/16/16 and he started her on methotrexa te 2.5 mg four tabs once a week and folic acid 1 mg daily. She is having worsening hand pain today. She did take prednisone this morning. 07/20/[address] Issa last week. I will request notes. Continues with severe intermitte nt pain and weight gain with steroid. Frustrated . Encouraged to call to f/u. 7 Generally well controlled on methotrexa te. Refusing to take prednisone unless she absolutely needs it. She states Dr. Issa is aware. Next f/u with him is at the end of February. We'll re-check labs at the end of Jan.. She continues on methotrexa te. She is awaiting to establish with a new rheumatolo gist in March since Dr. Arora is leaving the practice.1 06/22/16 She continues on methotrexa te. Now following with Antonio Sepulveda. Psoriatic arthritis 1563 86632 L40.50 see RA Coronary atherosclerosis [id number] I25.10 04/21/17 LDL 63. Continue pravastati n. NO asa - risks outweight benefits d/t hx of stomach ulcers. Patient agrees with plan. CT chest In November w/ Mild atheroscle rosis of coronary arteries. She continues on pravastati n 40 mg daily. Aspirin is currently on hold. Vitamin D deficiency 347 12264 E55.9 2015 Level was 10 at the end of Mar and for some reason another level was drawn early at the end of April and 35 after only one month of high dose. She states she was informed that she could discontinu e vitamin D supplement since her level was 35 in April. We will recheck prior to her visit in April 2017. Suspect she was under the impression she would stop vitamin d3 2,000 units daily since she was stopping the vitamin d 50,ooo units weekly.01/09 12/24 Needs repeated.1 06/22/16 She did restart daily supp but cannot recall the dose. Increase vit d3 by 2,000 units daily and repeat in July. Cobalamin deficiency [id number] E53.8 04/21/17 Level currently 279. Increase supp to total of b12 1,000 mcg daily. Recheck in July. Adult heal th examination [id number] Z00.00 10 yr plan provided to patient as follows:Co ntinue routine eye exams with Dr. Mars. Due 2019 per patient.Ed entulous. No dentist. Continue annual routine oral health screening here.Robyn nue annual influenza vaccinatio ns. Breast cancer screening: Most recent mammo 02/22 and negative. Counseling provided re: mynor serrano guidelines for future screening. She declines this year stating she cannot afford b/c insurance will only cover every other year. Therefore due 02/24.[place] n cancer screening: Colonoscop y 10/[address] Almonte. +diverticu la- left side, hyperplast ic polyp x 4, was told screening no longer indicated. Cervical cancer screening: s/p LCUY. screening no longer indicated. Lung cancer screening: She actually had a CT chest on 02/12/17 with No significan t pulmonary nodule .Os teoporosis screening: + osteoporos is. Repeat due 2018.Refus ing zoster vaccinatio n despite counseling .Otherwise , UTD with screenings and immunizati ons. Screening for malignant neoplasm of breast [id number] Z12.31 04/21/17 Most recent mammo 02/22 and negative. She declines this year stating she cannot afford b/c insurance will only cover every other year. Screening for malignant neoplasm of colon [id number] Z12.11 04/21/17 Colonoscop y 10/2015 with diverticul a, left side, hyperplast ic polyp x 4, was told screening no longer indicated. Hypomagnesemia [id number] E83.42 04/21/17 2.1. Continue mag ox 400 mg daily. [facility] [id number] Z91.81 Does have cane and walker, hospital bed w/rails, handle bars in shower. Care instructio ns for preventing falls discussed. She declines any further assistance at home. Overweight [id number] E66 .3 She is just over cusp of normal bmi. Difficult to tolerate exercise d/t joint pain. Continue efforts towards healthy diet. Osteoporosis [id number] M8 1.0 04/21/17 Tolerating Fosamax w/out issues. BMD due 2018.02/27 BMD w/Severe osteoporos is. 12/1/16 starting fosamax. Constipation [id number] K5 9.00 Secondary to iron use. Controlled . Continue colace one cap daily. Ulcer [id number] L98.9 Accountabl e to iron def per Dr. Almonte. Continue to avoid NSAIDS including asa. Continue omeprazole 20 mg daily. Refer back to Dr. Almonte with any changes. Continue to monitor. see cbc/iron. Chronic rhinitis [id number] J31.0 Continue nasal steroid prn. Congestion causing headaches. May try phenylephr ine but uses caution with bp. Health Concerns Section Related Observation LastModified by Organization Detai ls LastModified Time None Recorded Concern Status LastModified by Organization Details LastModified Time None Recorded Advance Directives Directive N: paper work provided Payers Encounter Date Sequence Insurance Name Policy Number Policy Bentley Covered Member ID Bentley Member ID Guarantor Name 11/16/2016 1 [facility] - MEDICARE COMPLETE CHOICE (MEDICARE REPLACEMENT PPO) [id number] Yoil A [address] [id number] Yoli A Bienvenue 12/23/2016 1 [facility] MEDICARE COMPLETE CHOICE (MEDICARE REPLACEMENT PPO) [id number] Yoli A Bienvenue [id number] Yoli A Bienvenue 01/01/2017 1 [facility] - MEDICARE COMPLETE CHOICE (MEDICARE REPLACEMENT PPO) [id number] Yoli A Bienvenue [id number] Yoli A Bienvenue 02/04/2017 1 [facility] - MEDICARE COMPLETE CHOICE (MEDICARE REPLACEMENT PPO) [id number] Yoli A Bienvenue [id number] Yoli A Bienvenue 04/21/2017 1 [facility] - MEDICARE COMPLETE CHOICE (MEDICARE REPLACEMENT PPO) [id number] Yoli A Bienvenue [id number] Yoli A Bienvenue Notes Date Note Type Note Provider Name and Address Organization Details Recorded Time 11/16/2016 text/html Patient presents today to follow up multiple issues. Her last visit was in July. She has a history of psoriatic/rheumatoi d arthritis and she has been following with Dr. Jenkins in [place], [place]. She was started on methotrexate 2.5 mg once a week and folic acid 1 mg daily. She has not been taking Prednisone 2.5 mg 1 tablet twice a day. She admits she is only taking as absolutely needed and Dr. Issa is aware. She has some stiffness, but he decided not to add TNF yet. She reported dysphagia with pills getting stuck in her throat and occasionally choking on liquids. I encouraged her to f/u with her software development leader, Dr. Almonte, but she presents today stating symptoms resolved and never called. Upper endoscopy 10/23 which showed a clean-based antral small ulcers, with negative H. pylori workup. I did also recommend an ultrasound to rule out any thyroid disorder. However, she wanted to hold off due to financials. She has a history of multiple chronic antral ulcers accountable for her iron deficiency per Dr. Almonte. She is prescribed prednisone for her arthritis but admits she only takes on rare occasion. I asked her remain off her aspirin until blood normalized. Osteoporosis: She had a bone mineral density in February 2016 revealing severe osteoporosis and started Fosamax in April 2016. Vitamin D deficiency: Her vitamin D was 10 04/08/2016. She had repeat labs at the end of April and her level was 35. She admits she is no longer taking. She believes someone called form office and told her to stop??? Vitamin B12 was low in July 2016. She has not been taking vitamin B12 500 ? ? ?g daily. Nicotine dependence: She has quit smoking cigarettes but continues with e-cigarette. She is no longer doing lozenges. She states she cannot tolerate the taste. Hypomagnesemia: She continues on mag oxide 400 mg daily. Most recent level was 2.6 in July,. Constipation well controlled with colace prn. Maddison Ta, REVIVAL CLERK [address] [place], [address], [facility] 11/16/2016 14:21:27 12/23/2016 text/html Patient presents today to follow-up multiple ER visits, and [place] [facility] [place] December 07 for multiple rib fractures after a fall. She was also diagnosed with pneumonia. She was discharged home with porch light VNA. She was scheduled for a follow-up chest x-ray and appointment with the trauma clinic yesterday. She was discharged with Levaquin for 2 more daily doses. She returned to the ER on 12/09/2016 for uncontrolled left-sided rib pain and shortness of breath. She had unremarkable labs, chest x-ray and EKG. Chest x-ray revealed multiple left-sided rib fractures, which were slightly more displaced compared to previous. Otherwise negative. She was discharged home with lidocaine patches and hydromorphone 2 mg tablets to use 1-2 tabs 4 times a day as needed, #20. She returned to the ER on 12/15/2016 with shortness of breath, weakness and leg edema. She had called 911 due to finding her on the floor. The report stated that when EMS arrived, they had become concerned due to her increasing shortness of breath and inability to ambulate up the stairs on her own and encouraged her to come to the ED as well. She was diagnosed with asthma or COPD exacerbation given her history of smoking, d/t no prior diagnosis. Her lungs were clear after she received a nebulizer treatment in the ER. She was given an albuterol MDI with spacer. It was not felt that she had pneumonia or needed antibiotics. She called in the interim on 12/14/16 d/t uncontrolled pain and I gave her small supply of tramadol 50 mg one tab q 6h prn. She presents today with her [id number]. She states pain persists but trying to go without tramadol and using Tylenol 500 mg 2 tabs every 8 hours. She has not taken any tramadol this morning. Ribs hurt with deep breath. Otherwise, effective and tolerating without any adverse effects, including constipation. Pneumonia: cough is resolved. Denies wheezing. albuterol effective for sob. Energy improving. Does have IS but admits she has not been using it. She has been using albuterol every 4 hours around the clock. She was not aware this was an as needed medication. He pulse is slightly elevated today. She did have this reaction in the hospital as well. Staying with [id number]. is at home attempting to recover on his own. He refused vna so she left to stay with daughter so she did not have to help take care of him. Has developed significant BLE edema since falling. Reporting significant improvement as of this morning. They state they admit to using THC lotion on BLE's last night. They attribute improvement to this. Denies chest pain, palpitations, nausea, bowel/bladder problems. AMERICA Leavitt [address] [facility], [place], [address], [place] [facility] 12/26/2016 10:34:54 01/01/2017 text/html Presents today w ith worsening BLE edema. Echo is not scheduled until 01/22/17. BLE edema, left foot completely back to baseline yesterday, swelled up overnight and once she got up she could not walk on it d/t pain. Right foot has been pretty consistent. She states insurance company will pay for nebulizer machine. Tired but did sleep well last night. Maddison Ta, REVIVAL CLERK [address] [facility], [place], [address], [facility] 01/04/2017 19:20:48 02/04/2017 text/html I saw her on Dec and sent her to the ER after she presented at 5:00 on Wednesday with acute onset of left lower extremity swelling and pain. She had a recent history of pneumonia and rib fractures with intermittent shortness of breath as well. She was going to go to the ER in [place]. However, I had not received any notes. I had my staff call her to inquire and she did go to ER after I saw her that day. She was having shortness of breath and I was hoping they would do CT chest to r/o PE, in addition to the the U/s to r/o dvt in LE. It does not appear they did CT chest. I had my staff call her again to inquire about respiratory status and they reported that she was vague with SOB. She stated improvement in SOB, when resting she has no SOB, when she walks short distances she is ok, when she is walking longer distance, thats when she is more SOB. Denied any chest pain. She had an echocardiogram on January 18 which did not reveal anything to explain her dyspnea. She states she is trying not to use albuterol d/t cost. SOB is severe with humidity and perfume. Otherwise, overall much improved. Denies wheezing, productive cough. Ever since she developed swelling in legs they have been extremely itchy, from knees down. She has tried everything otc, hydrocortisone, moisturizing cream. Trying not to scratch. Otherwise, swelling is much improved. Mainly in feet and anterior ankles, R>L. Legs are jumping again. Not sleeping. Must walk to tire them out and then they settle down. Iron deficiency anemia: CBC stable. Iron is borderline normal. States compliance w/2 tabs of iron daily. Denies any signs of bleeding. She had come off asa to see if it would improve cbc but really no change. RA: She states Dr. Ulysses paul and f/u w/new doctor in March. Rib pain: has 4 tramadol remaining and trying not to take them. Maddison Ta, REVIVAL CLERK [address] [place], [address], [facility] 02/04/2017 19:08:22 04/21/2017 text/html Medicare Annual Wellness VisitReported bypatient.Diet and Nutrition:high carbohydrate meals; discussed vitamin and supplement use; discussed portion control; discussed maintaining calcium balance; discussed diet improvement Fracture Risk:no recent explained fracture; no sudden unexplained fractures;history of fractures Physical Activity:does not exercise on a regular basis;decreased physical activity; discussed weightbearing activities Depression Risk:never feels sad, empty, or tearful; no loss of interest in activities; no significant changes in weight; no sleep disturbances or insomnia; no agitation; no loss of energy; no feelings of worthlessness or guilt; no thoughts of suicide; no history of depression; no history of mood disorders Orientation:no disorientation to time; no disorientation to date; no disorientation to place Concentration and Memory:no decreased concentrating ability; no memory lapses or loss; does not forget words Speech/Motor difficulties:no speech difficulties; no difficulty expressing formulated concepts; no slowed reaction time;difficulty with fine manipulative tasks;difficulty writing/copying;kno cking things over when trying to pick them up; arthritis Hearing:no loss of hearing Vision:no vision problems; wears reading glasses Activities of Daily Living:able to bathe with limited or no assistance; able to contol urination and bowels; able to dress with limited or no assistance; able to feed self with limited or no assistance; able to get out of chair or bedwith limited or no assistance; able to groom with limited or no assistance; able to toilet with limited or no assistance Instrumental Activities of Daily Living:able to do house work with limited or no assistance; able to grocery shop with limited or no assistance; able to manage medications with limited or no assistance; able to manage money with limited or no assistance; able to prepare meals with limited or no assistance; able to use the phone with limited or no assistance Falls Risk Assessment:no frequent falls while walking Home Safety:no unsafe jonathan hazzards; no unsafe stairs; no unsafe gas appliances; working smoke/CO detectors; use of seatbelts; no vision or hearing loss while driving; no fire arms; has hand bars in the bathroom/shower; good lighting in the home; number of motor vehicle accidents 0 Patient presents today for annual Medicare wellness. Recent labs with a normal CMP. CBC with an RDW of 19 and a platelet count of 496, otherwise normal. Iron profile with a saturation of 12% and a ferritin of 15. Saturation is essentially stable. Otherwise ferritin has dropped from 48 in January. She states compliance with iron 2 tabs daily. She must take colace one cap daily to prevent constipation. Otherwise, tolerating iron w/out issues.Vitamin D deficiency: Recent level is 22. She is taking it but cannot recall what dose. vitamin B12 279. she has been taking b12 500 mcg daily. Coronary arthrosclerosis: She continues on pravastatin 40 mg daily. Recent LDL 63. Magnesium 2.1. Taking mag ox 400 mg once daily. parathyroid 152. Has been told her calcium was high in the past and to avoid calcium intake. Has never seen Endocrinology that she is aware of. She was seen last on 02/04/2017. We repeated a chest CT due to persistent dyspnea, which revealed healing bilateral rib fractures, otherwise unremarkable. Patient states breathing is back to baseline. She admits to taking albuterol 2 puffs on rare occasion with good effect. Recalls butler with walking too fast and with anxiety. Elevated blood pressure without the diagnosis of hypertension: Home readings 130-138/80. COPD: CT as noted above and PFTs revealing restrictive pattern. No formal diagnosis. Smoker: Able to maintain 3 cigarettes daily. Restless legs: Mirapex with good effect. However, she has not had for couple of days d/t error with refill. Believe it was sent to mail order and not [facility]. Rheumatoid arthritis/psoriatic arthritis: methotrexate 2.5 mg 4 tabs once a week. Transferred care to Antonio Sepulveda. AMERICA Leavitt [address] [place], [address], [place] [facility] 04/24/2017 11:48:10 OBGyn Episode No OBEpisode recorded.
== END 2024-07-11 14:05 | disposition home or self-care (01) ==
PROVIDERS: PCP Nurse Practitioner Family; Visit Provider Student in an Organized Health Care Education/Training Program
DX: M05.79 Rheumatoid arthritis with rheumatoid factor of multiple sites without organ or systems involvement (principal); M11.89 Other specified crystal arthropathies, multiple sites; M81.0 Age-related osteoporosis without current pathological fracture; Z79.899 Other long term (current) drug therapy; Z51.81 Encounter for therapeutic drug level monitoring; D50.9 Iron deficiency anemia, unspecified
CPT/HCPCS: 99215; G2211

== ENCOUNTER 2024-08-31 12:43 | Inpatient (IN) | payer MEDICARE, SELFPAY ==
[2024-08-31] VITALS (12 sets, daily range): BP systolic 122–170; BP diastolic 62–99; PULSE 101–120; RESP 18–24; TEMP 36.3–36.8; O2SAT 95–100; BMI 21.1
--- NOTE | ~2024-08-31 | XR_ITS ---
EXAMINATION: XR CHEST CLINICAL INFORMATION: sob,cough COMPARISON: September 10, 2023. TECHNIQUE: Frontal view of the chest was obtained. FINDINGS: Hyperinflated lungs. Pulmonary reticular pattern. No consolidation, pleural effusion or pneumothorax. Bilateral apical lung scarring. Cardiomediastinal silhouette size is normal. Calcified plaque thoracic aorta. Multilevel thoracic and upper lumbar spondylosis. Osteopenia versus the process. S-shaped curvature of the thoracolumbar spine. XR/XR chest 1V IMPRESSION: Consider COPD emphysematous type changes without acute airspace disease. Electronically signed by: Lloyd Vidales MD 08/31/2024 01:48 PM EDT
--- NOTE | 2024-08-31 13:04 | ECG_ITS ---
Test Reason : SOB Blood Pressure : */* mmHG Vent. Rate : 112 BPM Atrial Rate : 112 BPM P-R Int : 102 ms QRS Dur : 68 ms QT Int : 352 ms P-R-T Axes : 63 62 88 degrees QTcB Int : 480 ms Sinus tachycardia with short NV Nonspecific ST and T wave abnormality Abnormal ECG When compared with ECG of 23-Mar-2022 14:09, Premature ventricular complexes are no longer Present Referred By: Generic ED Physician Electronically Signed By: SHARMIN ROJAS
--- NOTE | 2024-08-31 13:11 | ED.GENADULT ---
HPI - General Adult General Chief complaint: Dyspnea Stated complaint: SOB, FATIGUE X 1 WEEK, A&OX4 Time Seen by Provider: 08/31/24 13:11 History of Present Illness ED Provider: Jassno LACKEY narrative: The patient is a 79-year-old woman with a history of COPD who lives alone in her own apartment. She is quite frail. She says she has been feeling somewhat short of breath for about a week but much more so over the last 24 hours. Today she felt so short of breath she called an ambulance and was brought to the hospital. The patient denies fever, sweats, chills. She admits to still being a smoker. She says that she has a inhalers for her breathing but she has no nebulizer machine. She says that she has had black stools recently but she thinks that she has had black stools for a very long time. She does not feel there is any recent change in the color of her stools. She is not on iron. She has had no syncope. Related Data Previous Rx's ?Medication ?Instructions ?Recorded cetirizine 10 mg tablet (Zyrtec) 10 mg PO DAILY 30 days #30 tabs 05/31/23 acetaminophen 325 mg tablet 650 mg (2 x 325 mg) PO Q6H PRN 11/23/23 pain #60 tabs albuterol sulfate 90 mcg/actuation 2 puff inhalation Q4-6H PRN 05/22/24 aerosol inhaler shortness of breath or wheezing 1 month #8.5 grams amlodipine 5 mg tablet 5 mg PO DAILY 30 days #30 tabs 05/22/24 blood pressure monitor #1 ea 05/22/24 cyanocobalamin (vitamin B-12) 1,000 mcg sublingual DAILY #90 ea 05/22/24 1,000 mcg sublingual lozenge ferrous sulfate 325 mg (65 mg 325 mg PO BID 30 days #60 tabs 05/22/24 iron) tablet (Feosol) folic acid 1 mg tablet 1 mg PO DAILY #90 tabs 05/22/24 omeprazole 20 mg capsule,delayed 20 mg PO DAILY #30 caps 05/22/24 release colchicine 0.6 mg tablet 0.6 mg PO BID #60 tabs 07/11/24 hydroxychloroquine 200 mg tablet 200 mg PO DAILY #90 tabs 07/11/24 prednisone 5 mg tablet 5 mg PO DIRECTED #30 tabs 07/11/24 pravastatin 40 mg tablet 40 mg PO DAILY 90 days #90 tabs 08/12/24 ropinirole 1 mg tablet 2 mg (2 x 1 mg) PO TID #90 tabs 08/12/24 Allergies Allergy/AdvReac Type Severity Reaction Status Date / Time oxycodone [From OxyContin] Allergy Mild Hives Verified 08/31/24 13:03 [place] Allergy Mild Hives & Uncoded 05/22/24 14:49 Swollen legs Review of Systems Review of Systems: Yes all other systems are reviewed and are negative [facility] Past Medical History Medical History 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 Social History Social History Household Members: None Housing: Apartment Alcohol intake: never Comment: pain related to RLS, medicated with requip Patient Tobacco Use Status: Current everyday Tobacco user Tobacco use type: Cigarette Cigarettes Per Day: 5 Years Smoked: 55 Smoked in Last 30 Days: Yes e-Cigarette/Vaping Use: Never Used Second Hand Smoke Exposure: Yes Use of substances other than those prescribed or required for medical reasons: No Advance Directives: Yes Advance Directives on File: Yes Advance Directives Date on File: 09/10/23 Do you have a plan to hurt others: No Plan service: No Current occupational status: retired 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 Current occupational exposures/hazards: No Cognitive needs: No Hearing needs: No Vision needs: Yes Physical Exam ED Vital Signs: Vital Signs - 24 hr 08/31/24 13:00 08/31/24 13:55 08/31/24 13:57 Temperature 97.8 F 97.9 F Pulse Rate 112 H 106 H Pulse Rate [Left Apical] 112 H Respiratory Rate 20 20 22 H Blood Pressure 145/77 H 126/65 Pulse Oximetry 97 100 Oxygen Delivery Method Room Air Room Air 08/31/24 15:10 08/31/24 15:28 08/31/24 16:04 Temperature 98.1 F 98.3 F 98.1 F Pulse Rate 120 H 107 H 111 H Pulse Rate [Left Apical] Respiratory Rate 20 22 H 22 H Blood Pressure 122/62 131/69 138/63 Pulse Oximetry 100 Oxygen Delivery Method Room Air BMI result Body Mass Index 21.1 Const Other: The patient is a thin, small, very frail looking 79-year-old. She looks quite chronically ill. She was not exhibiting obvious increased work of breathing however. She looked pale. HENMT Other: Face is symmetrical. Mucous membranes moist. Airway clear. Eyes Other: There is conjunctival pallor General: appearance normal, both eyes and all related structures Neck Neck: Yes normal visual inspection, Yes full ROM and Yes no JVD Resp Other: Slightly coarse air entry bilaterally without definite wheezes or crackles. Cardio Rate: tachycardic Rhythm: regular rhythm Heart sounds: S1 normal heart sound present and S2 normal heart sound present GI Other: The abdomen is soft and nontender Digital rectal exam reveals dark non-melenic stool. Skin Other: Skin is pale and dry Neuro Other: The patient is awake and alert with a normal mental status. Cranial nerves are grossly intact. She moves her extremities symmetrically and appropriately. Extrem Other: No peripheral edema Medications Administered Discontinued Medications Generic Name Dose Route Start Last Admin Trade Name Freq PRN Reason Stop Dose Admin Pantoprazole Sodium 80 mg 08/31/24 13:49 08/31/24 14:18 Pantoprazole Sodium 40 Mg/10 Ml Vial IVPUSH 08/31/24 13:50 80 mg ONCE ONE Administration Medical Decision Making Medical Decision Making [facility] Narrative: The patient is a 79-year-old woman with a history of lifelong smoking who was still a smoker who presents with a complaint of shortness of breath. She came to the hospital by ambulance. My initial impression was that the patient was probably having a COPD exacerbation but I think her shortness of breath is much more likely to be a consequence of her profound anemia. Her hemoglobin today is 3.8. This is a significant drop from her last hemoglobin when checked in March of 2024 when her hemoglobin was 9.9. The patient describes having black stools for a long time. She is not on anticoagulation, NSAIDs, aspirin, or antiplatelet agents. She has dark heme-positive stool which is not frankly melenic. My overall impression is that she likely has been having an indolent upper GI bleed with black stools and a very gradual decline in her hemoglobin. She is tachycardic but has normal blood pressures. Her BUN is not remarkably elevated. The patient was given 80 mg of pantoprazole IV. Blood transfusions were initiated. She consented for receipt of blood. I reviewed the case with Dr. Miller of Gastroenterology. The plan will be for the patient to be resuscitated overnight and go for an upper endoscopy tomorrow. A total of 3 units of packed red blood cells has been ordered. The patient will be admitted to the hospitalist service. Lab Data 08/31/24 13:08 08/31/24 13:08 Labs: Lab Results 08/31/24 08/31/24 08/31/24 Range/Units 13:08 13:19 13:49 WBC 14.5 H (4.8-10.8) X10*3/uL RBC 1.87 L D (4.20-5.50) X10*6/uL Hgb 3.8 L* D (12.0-16.0) g/dl Hct 13.1 L* D (37.0-47.0) % MCV 70.1 L (80.0-98.0) fL MCH 20.3 L (27.0-33.0) pg MCHC 29.0 L (31.0-35.0) g/dl RDW 19.0 H (11.0-16.0) % Plt Count 828 H D (160-400) X10*3/uL MPV 8.4 L (9.4-12.3) fL Immature Gran % (Auto) 3.0 H (0.0-0.4) % Neut % (Auto) 77.9 H (45-73) % Lymph % (Auto) 10.7 L (20-40) % Jerome % (Auto) 7.3 (2-11) % Eos % (Auto) 0.8 (0-4) % Baso % (Auto) 0.3 (0-2) % Lymph # (Auto) 1.6 (1.2-4.9) X10*3/uL Jerome # (Auto) 1.1 (0.1-1.2) X10*3/uL Eos # (Auto) 0.1 (0.0-0.4) X10*3/uL Baso # (Auto) 0.0 (0.0-0.2) X10*3/uL Abs Immat Gran (auto) 0.43 H (0.00-0.03) X10*3/uL Absolute Neuts (auto) 11.3 H (2.0-8.3) x10*3/uL Absolute Nucleated RBC 0.060 H (0.0-0.012) X10*3/uL Nucleated RBC % (auto) 0.4 H (0.0-0.2) /100WBC Sodium 134 L (135-145) mmol/L Potassium 4.2 (3.3-5.1) mmol/L Chloride 105 (96-108) mmol/L Carbon Dioxide 21 L (22-29) mmol/L Anion Gap 12 (12-20) BUN 22 H (9-16) mg/dL Creatinine 0.78 (0.5-1.4) mg/dL Estim Creat Clear Calc 44.8 Estimated GFR > 60 Random Glucose 103 (60-115) mg/dL Calcium 8.2 L D (8.4-10.2) mg/dL Iron 11 L (30-160) mcg/dL TIBC 321 (228-428) mcg/dL % Saturation 3 L (15-50) % Unsat Iron Binding 310 ug/dL Ferritin 7 L (10-250) ng/mL Total Bilirubin 0.2 (0.0-1.0) mg/dL Direct Bilirubin < 0.2 (0.0-0.5) mg/dL AST 30 (5-31) U/L ALT 23 (0-31) U/L Alkaline Phosphatase 68 (39-117) U/L Troponin I High Sens 4.0 (<3.5-17.0) ng/L B-Natriuretic Peptide 114 H (<100) pg/mL Total Protein 6.3 L (6.5-8.0) g/dL Albumin 3.2 L (3.5-5.0) g/dL Urine Color Urine Appearance Urine pH (5.0-9.0) Ur Specific [employer] (1.005-1.025) Urine Protein (Neg-Trace) mg/dL Urine Glucose (UA) (Negative) mg/dL Urine Ketones (Negative) mg/dL Urine Blood (Negative) Urine Nitrite (Negative) Ur Leukocyte Esterase (Negative) Urine RBC (0-2) /HPF Urine WBC (0-5) /HPF Ur Squamous Epith Cells (0-2) /HPF Urine Bacteria (None Seen) Hyaline Casts (0-2) /LPF Stool Occult Blood (NEGATIVE) Influenza Type A (PCR) NEGATIVE (Negative) Influenza Type B (PCR) NEGATIVE (Negative) RSV RNA Qual (PCR) NEGATIVE (Negative) SARS-CoV-2 RNA (RT-PCR) NEGATIVE (Negative) Blood Type A Positive Antibody Screen POSITIVE Antibody Identification Inconclusive LEWIS, Polyspecific NEGATIVE Positive LEWIS Work-up TNP Crossmatch (AHG) See Detail 08/31/24 Range/Units 13:52 WBC (4.8-10.8) X10*3/uL RBC (4.20-5.50) X10*6/uL Hgb (12.0-16.0) g/dl Hct (37.0-47.0) % MCV (80.0-98.0) fL MCH (27.0-33.0) pg MCHC (31.0-35.0) g/dl RDW (11.0-16.0) % Plt Count (160-400) X10*3/uL MPV (9.4-12.3) fL Immature Gran % (Auto) (0.0-0.4) % Neut % (Auto) (45-73) % Lymph % (Auto) (20-40) % Jerome % (Auto) (2-11) % Eos % (Auto) (0-4) % Baso % (Auto) (0-2) % Lymph # (Auto) (1.2-4.9) X10*3/uL Jerome # (Auto) (0.1-1.2) X10*3/uL Eos # (Auto) (0.0-0.4) X10*3/uL Baso # (Auto) (0.0-0.2) X10*3/uL Abs Immat Gran (auto) (0.00-0.03) X10*3/uL Absolute Neuts (auto) (2.0-8.3) x10*3/uL Absolute Nucleated RBC (0.0-0.012) X10*3/uL Nucleated RBC % (auto) (0.0-0.2) /100WBC Sodium (135-145) mmol/L Potassium (3.3-5.1) mmol/L Chloride (96-108) mmol/L Carbon Dioxide (22-29) mmol/L Anion Gap (12-20) BUN (9-16) mg/dL Creatinine (0.5-1.4) mg/dL Estim Creat Clear Calc Estimated GFR Random Glucose (60-115) mg/dL Calcium (8.4-10.2) mg/dL Iron (30-160) mcg/dL TIBC (228-428) mcg/dL % Saturation (15-50) % Unsat Iron Binding ug/dL Ferritin (10-250) ng/mL Total Bilirubin (0.0-1.0) mg/dL Direct Bilirubin (0.0-0.5) mg/dL AST (5-31) U/L ALT (0-31) U/L Alkaline Phosphatase (39-117) U/L Troponin I High Sens (<3.5-17.0) ng/L B-Natriuretic Peptide (<100) pg/mL Total Protein (6.5-8.0) g/dL Albumin (3.5-5.0) g/dL Urine Color Yellow Urine Appearance Clear Urine pH 6.5 (5.0-9.0) Ur Specific [employer] <= 1.005 (1.005-1.025) Urine Protein Negative (Neg-Trace) mg/dL Urine Glucose (UA) Negative (Negative) mg/dL Urine Ketones Negative (Negative) mg/dL Urine Blood Moderate (2+) H (Negative) Urine Nitrite Negative (Negative) Ur Leukocyte Esterase Small (1+) H (Negative) Urine RBC 0-2 (0-2) /HPF Urine WBC 0-5 (0-5) /HPF Ur Squamous Epith Cells 0-2 (0-2) /HPF Urine Bacteria Trace (None Seen) Hyaline Casts 0-2 (0-2) /LPF Stool Occult Blood POSITIVE (NEGATIVE) Influenza Type A (PCR) (Negative) Influenza Type B (PCR) (Negative) RSV RNA Qual (PCR) (Negative) SARS-CoV-2 RNA (RT-PCR) (Negative) Blood Type Antibody Screen Antibody Identification LEWIS, Polyspecific Positive LEWIS Work-up Crossmatch (AHG) Independent Interpretation I performed an independent interpretation of an: EKG Interpretation: EKG at 13:12 shows sinus tachycardia at 112 beats per minute. No definite acute ischemic changes. Critical Care Time Critical Care Time Critical Care Time: Yes Total Critical Care Time: 35 Attestation: The patient was critically ill with a high probability of imminent or life-threatening deterioration. ?I spent greater than 30 minutes of discontinuous time evaluating the patient, delivering critical care at the bedside, discussing evaluating data with consultants. ?Critical care time does not include time spent performing separately billable procedures or teaching. ?Time spent performing critical care with 35 minutes. Discharge Plan Discharge Clinical Impression: Severe anemia, Upper gastrointestinal bleeding Patient Disposition: Admitted As Inpatient
[2024-08-31 13:12] LABS: MANUAL DIFF FLAG NO
[2024-08-31 13:16] LABS: Basophils Percent Auto 0.3 % (0-2); Eosinophils Absolute Auto 0.1 X10*3/uL (0.0-0.4); Eosinophils Percent Auto 0.8 % (0-4); Imm Gran Abs Auto 0.43 X10*3/uL (0.00-0.03); Lymphocytes Absolute Auto 1.6 X10*3/uL (1.2-4.9); Lymphocytes Percent Auto 10.7 % (20-40); Mean Corpuscular Hemoglobin 20.3 pg (27.0-33.0); Mean Corpuscular Volume 70.1 fL (80.0-98.0); Mean Platelet Volume 8.4 fL (9.4-12.3); Monocytes Absolute Auto 1.1 X10*3/uL (0.1-1.2); Monocytes Percent Auto 7.3 % (2-11); NRBC Pct Auto 0.4 /100WBC (0.0-0.2); Neutrophils Absolute Auto 11.3 x10*3/uL (2.0-8.3); Neutrophils Percent Auto 77.9 % (45-73); Platelet Count 828 X10*3/uL (160-400); Red Blood Count 1.87 X10*6/uL (4.20-5.50); White Blood Count 14.5 X10*3/uL (4.8-10.8)
[2024-08-31 13:27] LABS: Anion Gap 12 (12-20); Blood Urea Nitrogen 22 mg/dL (9-16); Calcium 8.2 mg/dL (8.4-10.2); Carbon Dioxide 21 mmol/L (22-29); Chloride 105 mmol/L (96-108); Creatinine Clr Calc Pharmacy 44.8; Estimated Glomerular Filt Rate > 60; Glucose Random 103 mg/dL (60-115); Potassium 4.2 mmol/L (3.3-5.1); Sodium 134 mmol/L (135-145)
[2024-08-31 13:28] LABS: Hemoglobin 3.8 g/dl (12.0-16.0)
[2024-08-31 13:30] LABS: Hematocrit 13.1 % (37.0-47.0)
[2024-08-31 13:35] LABS: B Type Natriuretic Peptide 114 pg/mL (<100)
--- NOTE | 2024-08-31 13:50 | PC.NURSE ---
patient a&ox3, iv inserted by ems to lt ac, 20 G placed by nurse labs drawn, pt notably sob/tripoding lungs diminished throughout LLL fine crackles, urine obtained, ekg obtained- surveillance system monitor applied st on monitor, cxr performed
--- NOTE | 2024-08-31 13:53 | MHC.EDTECH ---
Assisted DR. gray with a rectal exam, occult stool obtained,pt tolerated well Type N Screen collected and applied band to left wrist,urine sample collected all specimens sent to lab
--- NOTE | 2024-08-31 14:02 | PC.NURSE ---
pts a&h came back as critical, rectal exam performed by provider, blood consent form signed, t&s performed by tech.
[2024-08-31 14:03] LABS: Influenza A PCR NEGATIVE (Negative); Influenza B PCR NEGATIVE (Negative); Resp Syncy Virus RNA Qual PCR NEGATIVE (Negative); SARS COV2 PCR INHOUSE NEGATIVE (Negative)
[2024-08-31 14:05] LABS: Appearance Urine Clear; Color Urine Yellow; Glucose Urine UA Negative (Negative); Leukocyte Esterase Urine Small (1+) (Negative); Nitrite Urine Negative (Negative); PH 6.5 (5.0-9.0); Specific Gravity - Urine <= 1.005 (1.005-1.025); UMIC TRIGGER UACC YES; Urine Blood Moderate (2+) (Negative); Urine Ketones Negative (Negative); Urine Protein Negative (Neg-Trace)
[2024-08-31 14:08] LABS: OBS Int Ctl Valid YES; OBS1 POSITIVE (NEGATIVE)
[2024-08-31] MEDS: Pantoprazole Sodium 40 MG/10 ML VIAL 80 MG IVPUSH (14:18)
[2024-08-31 14:22] LABS: Bacteria Urine Trace (None Seen); Hyaline Casts Urine 0-2 /LPF (0-2); RBC Urine 0-2 /HPF (0-2); Squamous Epithelial Cell Urine 0-2 /HPF (0-2); UACC Culture Trigger YES; WBC Urine 0-5 /HPF (0-5)
[2024-08-31 14:31] LABS: Alanine Aminotransferase 23 U/L (0-31); Albumin Level 3.2 g/dL (3.5-5.0); Alkaline Phosphatase 68 U/L (39-117); Aspartate Amino Transferase 30 U/L (5-31); Bilirubin Direct < 0.2 mg/dL (0.0-0.5); Bilirubin Total 0.2 mg/dL (0.0-1.0); Total Protein 6.3 g/dL (6.5-8.0)
--- NOTE | 2024-08-31 14:35 | PC.NURSE ---
Patient placed on bedpan, having trouble following commands at times, able to move side to side and lift buttocks
--- NOTE | 2024-08-31 16:31 | PC.NURSE ---
patient a&ox3, sinus tach on monitor- vitals otherwise stable, blood previously started by float nurse- pt tolerating well, currently denying pain, plan of care ongoing.
--- OUTSIDE RECORDS SUMMARY | 2024-08-31 16:38 | XMS_ITS | Data Portability ---
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 She is seeing Dr. Arora at the end of February. [email or web address] Not available 11/16/2016 14:20:50 12/23/2016 12/23/2016 F/u next month for general f/u, PFTs, and f/u from 11/16/16 visit. [email or web address] Not available 12/26/2016 10:34:13 01/01/2017 01/01/2017 5 pm on Wednesday, sending to ER (she refuses to go here, going to [place]) need to r/o PE/DVT w/hx of RA/PsA, recent PNA/rib fx's with intermittent shortness of breath and acute onset of LLE swelling and pain. [email or web address] Not available 01/01/2017 16:53:52 Plan of Treatment Reminders Order Date Submit Date Provider Last Modified By Organization Details Last Modified Time Details Appointments None recorded. Lab BMP, serum or plasma [address], [address] [place], [address], 8 15:20:38 vitamin D, 25-hydroxy , total, serum [address], [address] [place], [address], 8 15:20:38 CBC [address], [address] [facility] [place], [address], 8 15:20:38 iron + total iron-parish ng capacity (TIBC), serum [address], 19 [facility] [place], [address], 8 15:20:38 vitamin B12, serum [address], 19 [facility] [place], [address], 8 15:20:38 PTH (parathyro id hormone), intact, serum or plasma [address], 19 [facility] [place], [address], 7 09:30:14 vitamin D, 25-hydroxy , total, serum [address], [address] [place], [address], 7 09:30:14 vitamin B12, serum [address], 19 [facility] [place], [address], 8 11:04:06 PTH (parathyro id hormone), intact, serum or plasma 2016 017 [facility], [address] [facility] [address], 7 14:32:23 magnesium, serum or plasma 2016 017 [facility], [address] [facility] [place], [address], 7 14:42:40 lipid panel, serum 2016 017 [facility], [address] [place], [address], 7 14:42:41 vitamin D, 25-hydroxy , total, serum 2016 017 [facility], [address] [place], [address], 7 14:42:45 CMP, serum or plasma 2016 017 [facility], [address] [place], [address], 7 14:42:38 vitamin B12, serum 2016 017 [facility], [address] [place], [address], 7 14:42:44 CBC 2016 017 [facility], [address] [place], [address], 7 13:27:32 iron + total iron-parish ng capacity (TIBC), serum 2016 017 [facility], [address] [place], [address], 7 13:36:43 CBC 2016 017 [facility], [address] [place], [address], 7 13:08:14 iron + total iron-parish ng capacity (TIBC), serum 2016 017 [facility], [address] [place], [address], 7 14:42:42 Referral endocrinol ogy referral - [place] office Please [address] -Endocrinolog y, [address], [place], [address], 8 13:57:18 Procedures None recorded. Surgeries None recorded. Imaging CT, chest, w/o contrast - f/u previous abnormalit ies [address] (Central Scheduling), [address] [place], [address], 7 20:03:06 US, echocardio gram 2016 017 [facility] ([facility] [address] [facility], [place], [address], 7 14:42:58 Medication Orders cyanocobal haney (vit B-12) 1,000 mcg tablet 2016 017 [facility], [address] [place], [address], 7 09:54:27 pramipexol e 0.125 mg tablet [address] [facility], [address] [place], [address], 7 19:33:09 Sarna Original 0.5 %-0.5 % lotion 2016 017 [facility]FACE [facility], [address] [place], [address], 7 18:03:30 albuterol sulfate HFA 90 mcg/actuat ion aerosol inhaler 2016 017 [facility], [address] [facility], [place], [address], 7 09:11:34 Fosamax 70 mg tablet 2016 017 [facility], [address] [place] [address], [id number], 7 08:53:21 omeprazole 20 mg capsule,de layed release 2016 017 INTERFACE [facility], [facility] [address], [place] [address], [place], [place], [id number], 7 10:10:07 Patient TargetsNo targets recorded. Patient Instructions Encounter Date Encounter Id Patient Instructions Last Modified By Organization Details Last Modified Time 02/04/2017 [id number] spirometry testing* ADAM Not available 02/05/2017 09:22:28 04/21/2017 [id number] heart-healthy diet: care instructions [email or web address] Not available 04/24/2017 11:28:03 A healthy heart: care instructions Not available 04/24/2017 11:28:03 preventing falls : care instructions Not available 04/24/2017 11:28:03 A healthy lifestyle: care instructions [email or web address] Not available 04/24/2017 11:28:03 Reason for Referral [facility] Referring [facility]ician: Maddison Ta, Family Medicine, Encounter Date: 04/21/2017 Results Created Date Observation Date Name Description Value Unit Range Abnormal Flag Note LastModifiedBy Organization Detail LastModifiedTime 02/05/20 17 02/05/2017 tomeka metry testi ng* Spirometry Not Available In-Offi ce Order Internal Use Only DO Not Attach Compendium DO Not Attach Compendium, Do Not Delete/merge, [id number] 02/04/2017 16:21:40 11/10/19 17 11/09/2016 iron + total iron- parish ng capac ity (TIBC ), serum iron 53 ug/dL 40-175 normal Not Available [address] [place] [address], [address], 11/09/2016 16:45:41 11/10/19 17 11/09/2016 iron + total iron- parish ng capac ity (TIBC ), serum transferrin 278 mg/dL 200-36 0 normal Effec tive 5: Pleas e note the refer ence range for this test has duarte ed. Not Available [address] [place] [address], [address], 11/09/2016 16:45:41 11/10/19 17 11/09/2016 iron + total iron- parish ng capac ity (TIBC ), serum iron binding 363 ug/dL 250-40 0 normal Not Available [address] [place] [address], 279[address], 11/09/2016 16:45:41 11/10/19 17 11/09/2016 iron + total iron- parish ng capac ity (TIBC ), serum iron saturation 15 % 16-55 low Not Available [address] [place] [address], [address], 11/09/2016 16:45:41 11/10/19 17 11/09/2016 iron + total iron- parish ng capac ity (TIBC ), serum ferritin 26 NG/mL 8-252 normal Peyton tin value s are age depen dent and can vary depen ding on menop ausal statu s. Not Available [address] [place] [address], 92612, 11/09/2016 16:45:41 11/10/19 17 11/09/2016 CBC WBC count 4.62 K/mm3 4.0-11 .0 normal Not Available [address] [place] [address], 78145, 11/09/2016 19:09:35 11/10/19 17 11/09/2016 CBC red blood cell count 3.99 M/uL 4.00-5 .20 low Not Available [address] [place] [address], 94752, 11/09/2016 19:09:35 11/10/19 17 11/09/2016 CBC hemoglobin 10.4 gm/dL 12.0-1 6.0 low Not Available [address] [place] [address], 37227, 11/09/2016 19:09:35 11/10/19 17 11/09/2016 CBC hematocrit 36.4 % 36.0-4 6.0 normal Not Available [address] [place] [address], 82506, 11/09/2016 19:09:35 11/10/19 17 11/09/2016 CBC MCV 91.2 fL 86-99 normal Not Available [address] [place] [address], 56565, 11/09/2016 19:09:35 11/10/19 17 11/09/2016 CBC RDW 17.8 % 11.5-1 6.0 high Not Available [address] [place] [address], 59475, 11/09/2016 19:09:35 11/10/19 17 11/09/2016 CBC plt count 590 K/uL 140-44 0 high Not Available [address] [place] [address], 26483, 11/09/2016 19:09:35 11/10/19 17 11/09/2016 CBC NRBC% 0.0 % 0-0.2 normal Not Available [address] [place] [address], 51522, 11/09/2016 19:09:35 11/10/19 17 11/09/2016 CBC ne# 2.81 K/uL 1.5-7. 5 normal Not Available [address] [place] [address], 29939, 11/09/2016 19:09:35 11/10/19 17 11/09/2016 CBC ly# 1.33 K/uL 1.0-4. 5 normal Not Available [address] [place] [address], 45547, 11/09/2016 19:09:35 11/10/19 17 11/09/2016 CBC MO# 0.38 K/uL 0.0-0. 8 normal Not Available [address] [place] [address], 33668, 11/09/2016 19:09:35 11/10/19 17 11/09/2016 CBC eo# 0.04 K/uL 0.0-0. 4 normal Not Available [address] [place] [address], 87721, 11/09/2016 19:09:35 11/10/19 17 11/09/2016 CBC ba# 0.04 K/uL 0.0-0. 2 normal Not Available [address] [place] [address], 79655, 11/09/2016 19:09:35 11/10/19 17 11/09/2016 CBC Ig# 0.02 K/uL normal Not Available [address] [place] [address], 99589, 11/09/2016 19:09:35 11/10/19 17 11/09/2016 CBC ne% 60.8 % normal Not Available [address] [place] [address], 90331, 11/09/2016 19:09:35 11/10/19 17 11/09/2016 CBC ly% 28.8 % normal Not Available [address] [place] [address], 09905, 11/09/2016 19:09:35 11/10/19 17 11/09/2016 CBC MO% 8.2 % normal Not Available [address] [place] [address], 70642, 11/09/2016 19:09:35 11/10/19 17 11/09/2016 CBC eo% 0.9 % normal Not Available [address] [place] [address], 75006, 11/09/2016 19:09:35 11/10/1911/09/2016 CBC ba% 0.9 % normal Not Available [address] [place] [address], 58839, 11/09/2016 19:09:35 11/10/19 17 11/09/2016 CBC Ig% 0.4 % normal Not Available [address] [place] [address], 35232, 11/09/2016 19:09:35 11/10/19 17 11/09/2016 CBC RBC morphology REVIEW ED normal Not Available [address] [place] [address] [place] [address], 114[address], 11/09/2016 19:09:35 11/10/19 17 11/09/2016 CBC plt morphology NORMAL normal Not Available [address] [place] [address], 76894, 11/09/2016 19:09:35 11/10/19 17 11/09/2016 CBC hypochromia MOD normal Not Avai lable [address] [place] [address], 92327, 11/09/2016 19:09:35 11/10/19 17 11/09/2016 CBC anisocytosis MOD normal Not Pinky ilable [address] [place] [address], 46920, 11/09/2016 19:09:35 02/04/20 17 02/03/2017 CBC WBC count 5.1 K/mm3 4.0-11 .0 normal Not Available [address] [place] [address], 45101, 02/03/2017 13:27:32 02/04/20 17 02/03/2017 CBC red blood cell count 3.97 M/uL 4.00-5 .20 low Not Available [address] [place] [address], 68997, 02/03/2017 13:27:32 02/04/20 17 02/03/2017 CBC hemoglobin 10.0 gm/dL 12.0-1 6.0 low Not Available [address] [place] [address], 67802, 02/03/2017 13:27:32 02/04/20 17 02/03/2017 CBC hematocrit 34.1 % 36.0-4 6.0 low Not Available [address] [place] [address], 38458, 02/03/2017 13:27:32 02/04/20 17 02/03/2017 CBC MCV 85.9 fL 86-99 low Not Available [address] [place] [address], 42732, 02/03/2017 13:27:32 02/04/20 17 02/03/2017 CBC RDW 19.0 % 11.5-1 6.0 high Not Available [address] [place] [address] [address] [place] [address], 38096, 02/03/2017 13:27:32 02/04/20 17 02/03/2017 CBC plt count 583 K/uL 140-44 0 high Not Available [address] [place] [address], 54[address], 02/03/2017 13:27:32 02/04/20 17 02/03/2017 CBC NRBC% 0.0 % 0-0.2 normal Not Available [address] [place] [address], 84056, 02/03/2017 13:27:32 02/04/20 17 02/03/2017 CBC ne# 3.22 K/uL 1.5-7. 5 normal Not Available [address] [place] [address], 56228, 02/03/2017 13:27:32 02/04/20 17 02/03/2017 CBC ly# 1.01 K/uL 1.0-4. 5 normal Not Available [address] [place] [address], 67112, 02/03/2017 13:27:32 02/04/20 17 02/03/2017 CBC MO# 0.74 K/uL 0.0-0. 8 normal Not Available [address] [place] [address], 00049, 02/03/2017 13:27:32 02/04/20 17 02/03/2017 CBC eo# 0.07 K/uL 0.0-0. 4 normal Not Available [address] [place] [address], 89134, 02/03/2017 13:27:32 02/04/20 17 02/03/2017 CBC ba# 0.03 K/uL 0.0-0. 2 normal Not Available [address] [place] [address] [place] [address], 18444, 02/03/2017 13:27:32 02/04/20 17 02/03/2017 CBC Ig# 0.01 K/uL normal Not Available [address] [place] [address], 78185, 02/03/2017 13:27:32 02/04/20 17 02/03/2017 CBC ne% 63.3 % normal Not Available [address] [place] [address], 58012, 02/03/2017 13:27:32 02/04/20 17 02/03/2017 CBC ly% 19.9 % normal Not Available [address] [place] [address], 65127, 02/03/2017 13:27:32 02/04/20 17 02/03/2017 CBC MO% 14.6 % normal Not Available [address] [place] [address], 93921, 02/03/2017 13:27:32 02/04/20 17 02/03/2017 CBC eo% 1.4 % normal Not Available [address] [place] [address], 34669, 02/03/2017 13:27:32 02/04/20 17 02/03/2017 CBC ba% 0.6 % normal Not Available [address] [place] [address], 68225, 02/03/2017 13:27:32 02/04/20 17 02/03/2017 CBC Ig% 0.2 % normal Not Available [address] [place] [address], 46168, 02/03/2017 13:27:32 02/04/20 17 02/03/2017 iron + total iron- parish ng capac ity (TIBC ), serum iron 45 ug/dL 40-175 normal Not Available [address] [place] [address], 45401, 02/03/2017 13:36:43 02/04/20 17 02/03/2017 iron + total iron- parish ng capac ity (TIBC ), serum transferrin 317 mg/dL 200-36 0 normal Effec tive 5: August melgoza note the refer ence range for this test has duarte ed. Not Available [address] [place] [address], 92386, 02/03/2017 13:36:43 02/04/20 17 02/03/2017 iron + total iron- parish ng capac ity (TIBC ), serum iron binding 411 ug/dL 250-40 0 high Not Available [address] [place] [address], 97864, 02/03/2017 13:36:43 02/04/20 17 02/03/2017 iron + total iron- parish ng capac ity (TIBC ), serum iron saturation 11 % 16-55 low Not Available [address] [place] [address] [place] [address], 17112, 02/03/2017 13:36:43 02/04/20 17 02/03/2017 iron + total iron- parish ng capac ity (TIBC ), serum ferritin 48 NG/mL 8-252 normal Peyton tin value s are age depen dent and can vary depen ding on menop ausal statu s. Not Available [address] [place] [address], 23108, 02/03/2017 13:36:43 04/13/20 17 04/13/2017 CBC WBC count 4.0 K/mm3 4.0-11 .0 normal Not Available [address] [place] [address], 02284, 04/13/2017 13:08:14 04/13/20 17 04/13/2017 CBC red blood cell count 4.57 M/uL 4.00-5 .20 normal Not Available [address] [place] [address], 29793, 04/13/2017 13:08:14 04/13/20 17 04/13/2017 CBC hemoglobin 12.0 gm/dL 12.0-1 6.0 normal Not Available [address] [place] [address] [address] [place] [address], 64058, 04/13/2017 13:08:14 04/13/20 17 04/13/2017 CBC hematocrit 40.1 % 36.0-4 6.0 normal Not Available [address] [place] [address], 43039, 04/13/2017 13:08:14 04/13/20 17 04/13/2017 CBC MCV 87.7 fL 86-99 normal Not Available [address] [place] [address], 07420, 04/13/2017 13:08:14 04/13/20 17 04/13/2017 CBC RDW 19.0 % 11.5-1 6.0 high Not Available [address] [place] [address], 76723, 04/13/2017 13:08:14 04/13/20 17 04/13/2017 CBC plt count 496 K/uL 140-44 0 high Not Available [address] [place] [address], 10025, 04/13/2017 13:08:14 04/13/20 17 04/13/2017 CBC NRBC% 0.0 % 0-0.2 normal Not Available [address] [place] [address], 50031, 04/13/2017 13:08:14 04/13/20 17 04/13/2017 CBC ne# 2.17 K/uL 1.5-7. 5 normal Not Available [address] [place] [address], 54095, 04/13/2017 13:08:14 04/13/20 17 04/13/2017 CBC ly# 1.29 K/uL 1.0-4. 5 normal Not Available [address] [place] [address], 26501, 04/13/2017 13:08:14 04/13/20 17 04/13/2017 CBC MO# 0.43 K/uL 0.0-0. 8 normal Not Available [address] [place] [address] [address] [place] [address], 32799, 04/13/2017 13:08:14 04/13/20 17 04/13/2017 CBC eo# 0.06 K/uL 0.0-0. 4 normal Not Available [address] [place] [address] [address] [place] [address], 78893, 04/13/2017 13:08:14 04/13/20 17 04/13/2017 CBC ba# 0.02 K/uL 0.0-0. 2 normal Not Available [address] [place] [address] [address] [place] [address], 67782, 04/13/2017 13:08:14 04/13/20 17 04/13/2017 CBC Ig# 0.01 K/uL normal Not Available [address] [place] [address] [address] [place] [address], 95683, 04/13/2017 13:08:14 04/13/20 17 04/13/2017 CBC ne% 54.5 % normal Not Available [address] [place] [address] [address] [place] [address], 77462, 04/13/2017 13:08:14 04/13/20 17 04/13/2017 CBC ly% 32.4 % normal Not Available [address] [place] [address] [address] [place] [address], 04928, 04/13/2017 13:08:14 04/13/20 17 04/13/2017 CBC MO% 10.8 % normal Not Available [address] [place] [address] [address] [place] [address], 36674, 04/13/2017 13:08:14 04/13/20 17 04/13/2017 CBC eo% 1.5 % normal Not Available [address] [place] [address] [address] [place] [address], 13276, 04/13/2017 13:08:14 04/13/20 17 04/13/2017 CBC ba% 0.5 % normal Not Available [address] [place] [address] [address] [place] [address], 28045, 04/13/2017 13:08:14 04/13/20 17 04/13/2017 CBC Ig% 0.3 % normal Not Available [address] [place] [address] [place] [address], 78179, 04/13/2017 13:08:14 04/13/20 17 04/13/2017 PTH (para thyro id hormo ne), intac t, serum or plasm a parathyroid hormone intact 152 pg/mL 14-72 high Not Available [address] [place] [address] [address] [place] [address], 79580, 04/13/2017 14:32:23 04/13/20 17 04/13/2017 CMP, serum or plasm a glucose 87 mg/dL 70-109 normal Not Available [address] [place] [address], 50305, 04/13/2017 14:42:38 04/13/20 17 04/13/2017 CMP, serum or plasm a BUN 10 mg/dL 6-26 normal Not Available [address] [place] [address], 24082, 04/13/2017 14:42:38 04/13/20 17 04/13/2017 CMP, serum or plasm a creatinine 0.71 mg/dL 0.0-1. 3 normal Not Available [address] [place] [address], 94765, 04/13/2017 14:42:38 04/13/20 17 04/13/2017 CMP, serum [...] G5 (kidn ey failu re). Not Available [address] [place] [address], 82669, 04/13/2017 14:42:38 04/13/20 17 04/13/2017 CMP, serum or plasm a calcium 9.9 mg/dL 8.3-9. 9 normal Not Available [address] [place] [address], 60532, 04/13/2017 14:42:38 04/13/20 17 04/13/2017 CMP, serum or plasm a total protein 6.9 g/dL 5.9-7. 9 normal Effec tive 5: Pleas e note the refer ence range for this test has duarte ed. Exact pedia tric range s are not estab lishe d, but tend to be lower than adult range s. Not Available [address] [place] [address], 68952, 04/13/2017 14:42:38 04/13/20 17 04/13/2017 CMP, serum or plasm a albumin 4.0 g/dL 2.9-4. 7 normal Not Available [address] [place] [address], 90848, 04/13/2017 14:42:38 04/13/20 17 04/13/2017 CMP, serum or plasm a alkaline phosphatase 56 IU/L 18-210 normal Not Available [address] [place] [address], 43896, 04/13/2017 14:42:38 04/13/20 17 04/13/2017 CMP, serum or plasm a SGOT (AST) 22 IU/L 15-37 normal Effec tive 5: Pleas e note the refer ence range for this test has duarte ed. Not Available [address] [place] [address], 74236, 04/13/2017 14:42:38 04/13/20 17 04/13/2017 CMP, serum or plasm a bilirubin total 0.4 mg/dL 0.2-1. 3 normal Not Available [address] [place] [address], 18164, 04/13/2017 14:42:38 04/13/20 17 04/13/2017 CMP, serum or plasm a SGPT (ALT) 23 IU/L 13-56 normal Not Available [address] [place] [address], 80807, 04/13/2017 14:42:38 04/13/20 17 04/13/2017 CMP, serum or plasm a sodium 141 mEq/L 135-14 5 normal Not Available [address] [place] [address], 78219, 04/13/2017 14:42:38 04/13/20 17 04/13/2017 CMP, serum or plasm a potassium 4.4 mEq/L 3.5-5. 1 normal Not Available [address] [place] [address], 62413, 04/13/2017 14:42:38 04/13/20 17 04/13/2017 CMP, serum or plasm a chloride 108 mEq/L 98-112 normal Not Available [address] [place] [address], 63933, 04/13/2017 14:42:38 04/13/20 17 04/13/2017 CMP, serum or plasm a CO2 25 mEq/L 20-32 normal Not Available [address] [place] [address], 58987, 04/13/2017 14:42:38 04/13/20 17 04/13/2017 CMP, serum or plasm a anion gap 8 mEq/L 5-15 normal Not Available [address] [place] [address], 63242, 04/13/2017 14:42:38 04/13/20 17 04/13/2017 magne sium, serum or plasm a magnesium 2.1 mg/dL 1.6-2. 6 normal Not Available [address] [place] [address], 08344, 04/13/2017 14:42:40 04/13/20 17 04/13/2017 lipid panel , serum cholesterol 167 mg/dL normal ASHA ABLE <200 Asha able 200-2 39 Borde rline High >=240 High Not Available [address] [place] [address], 32543, 04/13/2017 14:42:41 04/13/20 17 04/13/2017 lipid panel , serum triglyceride 190 mg/dL normal BORDE RLINE HIGH <=150 Luz l 150-1 99 Borde rline High 200-4 99 High >=500 Very High Not Available [address] [place] [address], 96871, 04/13/2017 14:42:41 04/13/20 17 04/13/2017 lipid panel , serum HDL 66 mg/dL normal OPTIM AL <40 Low >=60 Optim al Not Available [address] [place] [address], 21271, 04/13/2017 14:42:41 04/13/20 17 04/13/2017 lipid panel , serum calculated LDL 63 mg/dL normal OPTIM AL <100 Optim al 100-1 29 Near optim al 130-1 59 Borde rline High 160-1 89 High >=190 Very High The above class ifica tions are based on the recom menda tions of the NCEP Exper t Panel , (ATP III, 2001) . Not Available [address] [place] [address], 68312, 04/13/2017 14:42:41 04/13/20 17 04/13/2017 iron + total iron- parish ng capac ity (TIBC ), serum iron 42 ug/dL 40-175 normal Not Available [address] [place] [address] [place] [address], 61624, 04/13/2017 14:42:42 04/13/20 17 04/13/2017 iron + total iron- parish ng capac ity (TIBC ), serum transferrin 275 mg/dL 200-36 0 normal Effec tive 5: Pleas e note the refer ence range for this test has duarte ed. Not Available [address] [place] [address], 96782, 04/13/2017 14:42:42 04/13/20 17 04/13/2017 iron + total iron- parish ng capac ity (TIBC ), serum iron binding 359 ug/dL 250-40 0 normal Not Available [address] [place] [address], 91165, 04/13/2017 14:42:42 04/13/20 17 04/13/2017 iron + total iron- parish ng capac ity (TIBC ), serum iron saturation 12 % 16-55 low Not Available [address] [place] [address] [place] [address], 34081, 04/13/2017 14:42:42 04/13/20 17 04/13/2017 iron + total iron- parish ng capac ity (TIBC ), serum ferritin 15 NG/mL 8-252 normal Peyton tin value s are age depen dent and can vary depen ding on menop ausal statu s. Not Available [address] [place] [address], 16869, 04/13/2017 14:42:42 04/13/20 17 04/13/2017 vitam in B12, serum vitamin B12 279 pg/mL 193-98 6 normal Effec tive 5: Pleas e note the refer ence range for this test has duarte ed. Not Available [address] [place] [address], 41082, 04/13/2017 14:42:43 04/13/20 17 04/13/2017 vitam in [...] suppl ement ation . Not Available [address] [facility], [place], [address], 04/13/2017 14:42:45 12/15/19 17 12/09/2016 XR, chest , 2 view No observ ation record ed. [email or web address] Not Available 2016 17:07:18 12/15/19 17 12/02/2016 CT, chest , w/o contr ast No observ ation record ed. Not Available 2016 17:07:18 12/15/19 17 12/02/2016 XR, chest No observ ation record ed. Not Available 2016 17:07:18 01/23/20 17 01/18/2017 US, echoc ardio gram [facility] [employer] [facility] CARDIO VASCUL AR C[facility] , [place] [address] - Chichi t: SIMIN GAMEZ ROL Phone: Exam Date:0 7 Exam: ECHOCA RDIOGR AM Attend yvette Jorgensen:Kim NAILS :[birth year] Age/Se x: 71/F Kendrick dixon M.D.: BHAVYA TA E.DChristi Attend yvette Jorgensen: X-Ray #: [id number] Locati on: CAV.NA Sympto ns for test: DYSPNE A Diagno sis: [facility] [address] [place] [address] [phone] Transt horaci c Echoca rdiogr am 2D, M-mode , Dopple r, and Color Dopple r Name: YOLI ANNA MR #: [id number] Accoun t #: [id number] Study date: 2016 : 1944 Gender : [...] MV A Heriberto: 130 cm/s MV Dec Harnett: 633.3 cm/s2 MV DecT: 146.6 ms MV [...] Techno logist ...... ...... ...... ....: AK [email or web address] [facility] (Radiology) [address] [place] [address], [address], 01/22/2017 15:51:25 01/26/20 17 01/01/2017 US, flaquita domingo, jorge s, jay [facility] anna No observ ation record ed. [email or web address] Not Available 2016 09:56:42 02/05/20 17 tomeka metry testi ng* No observ ation record ed. [email or web address] Not Available 2016 19:17:10 02/18/20 17 02/12/2017 CT, chest , w/o contr ast [facility] s ADALBERTO VARGAS [facility] FILEMON IMAGIN G CTR DIAGNO STIC IMAGIN G DEPART MENT [address] [place] [address] - Patien t: SIMIN GAMEZ Phone: Exam Date:1 7 Exam: CT Chest Wo Attend [facility] M.D.:Kim NAILS POSTULANT :[birth year] Age/Se x: 72/F Orderi zack Morley.:Kim NAILS E.DChristi Attend yvette M.D.: Primar y Thais Morley.: BHAVYA TA POSTULANT X-Ray #: [id number] Locati on: RAD.NA Other Locati on: [...] n: [id number] Access ion Number : [id number] 3.001 Transc ribed by: PS Interp reting Physic danna: VALENTÍN DURAN MD Electr onical ly Signed by: NAHOMY DURAN MD on 1344 Rec'd in [employer] on : 1344 Techno logist : RM Exam CPT #: 31459Q Briana Melara r #: [id number] Report #: [id number] [facility] Rec#:[id number] Report Status : Signed [address] (Radiology) [address] [place] [address], [address], 02/17/2017 19:58:28 02/25/20 17 02/04/2017 tomeka metry testi ng* No observ ation record ed. [email or web address] In-Office Order Internal Use Only DO Not Attach Compendium DO Not Attach Compendium, Do Not Delete/merge, [id number] 02/24/2017 09:26:11 Result Notes None recorded. Problems Name Problem SNOMED Code Status Onset Date Resolution Date Notes Provider Name and Address Organization Details Recorded Time Bursitis of shoulder 347671264 Completed 09/20/2015 Maddison Ta [address], [address], [facility] [employer] 6 11:16:08 Hypercho lesterol emia 04876707 Completed 09/19/2015 Maddison Ta [address], [address], [facility] [employer] 6 11:16:08 Disorder of lipid metaboli sm 549597698 Completed 09/19/2015 Maddison Ta [address], [address], [facility] [employer] 6 11:16:08 Restless legs 70456221 Active ? hives w/mirape x, Gabapent in no longer effectiv e. Neupro patch & Lyrica are too expensiv e. Referrin g to Neurolog y. Maddison Ta [address], [address], [facility] [employer] 7 10:40:06 Pure hypercho lesterol emia 166435933 Completed 09/19/2015 Maddison Ta [address], [address], [facility] [employer] 6 11:16:08 Anemia 377173151 Completed 09/20/2015 Maddison Ta [address], [address], [facility] [employer] 6 11:16:08 Hyperten sive disorder 63676832 Completed 04/08/2016 Maddisno Ta [address], [address], [facility] [employer] 6 21:12:21 Hyperlip idemia 89193844 Active Maddison Ta [address], [address], [facility] [employer] 7 11:31:53 Pain 50397444 Completed 09/25/2015 Maddison Ta [address], [address], [facility] [employer] 6 20:26:38 Abnormal breath sounds 043393134 Completed 04/08/2016 Maddison Ta [address], [address], [facility] [employer] 6 20:35:08 Iron deficien cy anemia 51916434 Active Secondar y to chronic stomach ulcers dx'd on EGD 09/22, Dr. Almonte. Maddison Ta [address], [address], [facility] [employer] 6 20:35:05 Constipa tion 96837137 Active secondar y to iron supp Maddison Ta [address], [address], [facility] [employer] [facility] [employer] 6 20:34:14 Edema 866371304 Completed 04/08/2016 Maddison Ta [address], [address], [facility] [employer] [facility] 6 20:26:14 Laborato ry test result abnormal 104897938 Completed 04/08/2016 Maddison Ta [address], [address], [facility] [employer] [facility] 6 20:25:56 C-reacti ve protein outside referenc e range 609356446 Completed 04/08/2016 Maddison Ta [address], [address], [facility] [employer] [facility] 6 20:26:03 Hypomagn esemia 080623840 Active Maddison Ta [address], [address], [facility] [employer] [facility] 6 11:16:07 Pain 08410062 Completed 04/08/2016 Maddison Ta [address], [address], [facility] [employer] [facility] 6 20:26:38 Smoker 79092415 Completed 04/08/2016 Maddison Ta [address], [address], [facility] [employer] [facility] [employer] [facility] 7 11:32:18 Joint pain 86518646 Completed 04/08/2016 Maddison Ta [address], [address], [facility] [employer] [facility] 6 20:26:18 Rheumato id arthriti s 75198070 Active [facility]ved[facility] , [facility] Maddison Ta [address], [address], [facility] [employer] [facility] [employer] [facility] 7 11:30:56 Ulcer 130171217 Active 2015 Multiple chronic antrum ulcers. Accounta ble for iron deficien cy. Dr. Almonte. Maddison Ta [address], [address], [facility] [employer] [facility] [employer] 6 21:14:17 Nicotine dependen ce 39596870 Completed 04/24/2017 Maddison Ta [address], [address], [facility] [employer] [facility] 7 11:32:11 Osteopor osis 83153894 Active 02/28/20 16 BMD w/Severe osteopor osis. 04/09/16 starting fosamax. Maddison Ta [address], [address], [facility] [employer] [facility] 6 12:37:52 Vitamin D deficien cy 97412451 Active Maddison Ta [address], [address], [facility] [employer] [facility] 7 11:31:35 Psoriati c arthrinatalya s 275982007 Active Dr[facility] Maddison Ta [address], [address], [facility] [employer] [facility] 7 11:31:03 Coronary atherosc lerosis 034289661 Active 11/23 CT chest. Mild atherosc lerosis of coronary arteries . Hx of ulcer w/iron def anemia. Asa d/c'd - risk outweigh s benefit at this time. Continue statin. Needs to quit smoking. Maddison Ta [address], [address], [facility] [employer] [facility] 7 17:50:30 At increase d risk for falls 441892822 Active Does have cane and walker, hospital bed w/rails, handle bars in shower. Maddison Ta [address], [address], [facility] [employer] [facility] 7 10:15:08 Smoker 38294471 Active 2016 Maddison Ta [address], [address], [facility] [employer] [facility] 7 11:32:18 Cobalami n deficien cy 104865234 Active Maddison Ta [address], [address], [facility] [employer] 7 11:47:44 Hyperpar athyroid ism 44469755 Active MaddisonAMERICA Turner [address] [place] [address], [address], [facility] [employer] 7 11:47:46 Chronic rhinitis 26221363 Active AMERICA Leavitt [address] [place] [address], [address], [facility] [employer] 7 11:47:50 Notes:01/2016 Hep C negative Problem Notes None recorded. Procedures Surgical History Date Name Laterality Status Provider Name and Address Organization Details Recorded Time 02/28/20 16 Mammogram completed AMERICA Leavitt [address] [place] [address], [address], [facility] [employer] 03/02/2016 10:39:30 11/07/19 16 Colonoscopy completed AMERICA Leavitt [address] [place] [address], [address], [facility] [employer] 11/19/2015 11:39:50 09/20/19 16 EGD completed AMERICA Leavitt [address] [place] [address], [address], [facility] [employer] 04/08/2016 21:14:07 04/06/19 73 Hysterectomy completed AMERICA Leavitt [address] [place] [address], [address], [facility] [employer] 09/20/2015 14:42:08 01/04/19 73 Section completed mandy castrejon [place] [employer] 09/18/2015 16:50:14 05/10/18 73 Appendectomy completed AMERICA Leavitt [address] [place] [address], [address], [facility] [employer] 10/18/2015 11:17:55 Imaging Results Imaging Date Name Status LastModified by Organization Details LastModified Time 12/09/2016 XR, chest, 2 view completed [email or web address] Informa tion not available 12/14/2016 17:07:18 12/02/2016 CT, chest, w/o contrast completed [email or web address] Information not available 12/14/2016 17:07:18 12/02/2016 XR, chest completed [email or web address] Information no t available 12/14/2016 17:07:18 01/18/2017 US, echocardiogram completed [facility] (Radiology) [address] [place] [address], [address], 01/22/2017 15:51:25 01/01/2017 US, duplex, venous, lower extremity completed [email or web address] Information not available 01/26/2017 09:56:42 02/04/2017 spirometry testing* completed [email or web address] Information not available 02/04/2017 19:17:10 02/12/2017 CT, chest, w/o contrast completed [email or web address] [facility] (Radiology) [address] [place], [address], 02/17/2017 19:58:28 02/04/2017 spirometry testing* completed [email or web address] In-Office Order Internal Use Only DO Not Attach Compendium DO Not Attach Compendium, Do Not Delete/merge, [id number] 02/24/2017 09:26:11 Procedure Notes None recorded. Medical Equipment None Reported. Allergies Allergen ID Allergen Name Allergen Category Reaction Reaction Severity Criticality Documentation Date Start Date Code Code System Note Provider Name and Address Organization Details Recorded Time 40948 Oxycontin medicatio n hives Not available Not available 10/09/2015 39116 6 RxNorm mandy crain [facility] [employer] [facility] 6 09:56:45 33696 pramipexo le medicatio n hives Not available Not available 04/26/2017 28852 1 RxNorm AMERICA Leavitt [address] [place], [address] , [facility] - [employer] [facility] 7 19:38:42 Medications Name Sig Start Date [...] Not Available Not Available [employer] [facility] 12/23 completed Not Available Not Available Not [...] Updated DateTime 7 157.48 cm 28.5 kg/m2 98273.4 1 g 99 /min 128 mm[Hg] 80 mm[Hg] Evelyn [employer]Damian [place] [employer] [facility] 7 09:20:32 Date Recorded Body height Body mass index (BMI) Body weight Heart rate Oxygen saturation Oxygen saturation in Arterial blood by Pulse oximetry Body temperature Systolic blood pressure Diastolic blood pressure Provider Name and Address Organization Details Last Updated DateTime 7 157.48 cm 27.3 kg/m2 30908.0 6 g 101 /min 94 % 94 % 98.7 [degF] 144 mm[Hg] 88 mm[Hg] Evelyn Teran [employer] [facility] 7 08:42:43 Date Recorded Body height Body mass index (BMI) Body weight Heart rate Oxygen saturation Oxygen saturation in Arterial blood by Pulse oximetry Body temperature Systolic blood pressure Diastolic blood pressure Provider Name and Address Organization Details Last Updated DateTime 7 157.48 cm 27.3 kg/m2 24000.3 6 g 113 /min 96 % 96 % 98.2 [degF] 132 mm[Hg] 80 mm[Hg] Evelyn Teran [employer] [facility] [employer] [facility] 7 16:11:40 Date Recorded Body height Body mass index (BMI) Body weight Heart rate Oxygen saturation Oxygen saturation in Arterial blood by Pulse oximetry Systolic blood pressure Diastolic blood pressure Provider Name and Address Organization Details Last Updated DateTime 7 157.48 cm 26.9 kg/m2 82343.0 8 g 93 /min 99 % 99 % 130 mm[Hg] 90 mm[Hg] Evelyn red [facility] [employer] [facility] 7 16:17:39 Date Recorded Body height Body mass index (BMI) Body weight Heart rate Oxygen saturation Oxygen saturation in Arterial blood by Pulse oximetry Systolic blood pressure Diastolic blood pressure Provider Name and Address Organization Details Last Updated DateTime 7 157.48 cm 25.7 kg/m2 77647.0 3 g 89 /min 98 % 98 % 144 mm[Hg] 88 mm[Hg] Evelyn Teran [facility] [employer] [facility] 7 08:46:14 Social History Question Answer Notes LastModified by Organizat ion Details LastModified Time Tobacco Smoking Status Current Every Day Smoker Previously quit 04/03/16. Maddison Ta [address], [address], [facility] [employer] [facility] 04/08/2016 21:10:44 Do You Have An Advance Directive? No Paper Work Provided 11/16/16 Information not available 11/16/2016 What Is Your Level Of Alcohol Consumption? None [email or web address] Information not available 09/18/2015 Which Illicit Or Recreational Drugs Have You Used? Denies [email or web address] Information not available 09/19/2015 Are There Any Guns Present In Your Home? No Information not available 07/20/2016 Dietary Regular Chicken And Fish, Does Not Like Red Meat [email or web address] Information not available 10/18/2015 Marital Status yoli Informat[employer] on not available 09/18/2015 What Was The Date Of Your Most Recent Tobacco Screening? 04/21/2017 Information not available 11/30/2018 How Many Children Do You Have? 2 Youngest Son Biological And Oldest Son Adopted [email or web address] Information not available 10/18/2015 Seat Belts Used Routinely Yes Information not available 07/20/2016 Smoke Alarm In Home Yes Information not available 07/20/2016 At What Age Did You Start Smoking Tobacco? 20 [email or web address] Information not available 10/18/2015 How Much Tobacco Do You Smoke? 0.5 PPD 3 Cigarettes Daily [email or web address] Information not available 04/21/2017 Do You Use Sunscreen Routinely? Yes Information not available 07/20/2016 Sex: Unknown Functional Status Question Answer Note LastModified by Organization D etails LastModified Time What is your exercise level? None [email or web address] Information not available 10/18/2015 Mental Status None recorded. Family History Relationship Description Onset Age of this Age Resolved Age Notes LastModified by Organization Details LastModified Time Father Hypertensive disorder 65 [email or web address] Not available 2015 11:22:03 Father Heart disease [email or web address] Not available 2015 11:22:03 Father Rheumatoid arthritis [email or web address] Not available 2015 11:22:03 Mother Renal failure syndrome [email or web address] Not available 2015 11:22:03 Mother Hypertensive disorder [email or web address] Not available 2015 11:22:03 Mother Heart disease Not available 2015 11:22:03 Sister Deep venous thrombosis stent placem ent [email or web address] Not available 04/21/2017 10:18:13 Medical History Condition [...] quadrivalent, preservative 04/21/20 17 completed Not Available [facility] 05/27/2019 02:40:02 pneumococcal polysaccharide PPV23 04/21/20 17 completed Not Available [facility] 05/27/2019 02:40:02 Tdap 05/10/19 12 completed AMERICA Leavitt [address] [facility], [place], [address], [facility] 01/17/2016 08:58:39 Pneumococcal conjugate PCV 13 03/25/20 16 completed Not Available [facility] 06/10/2019 02:16:57 Influenza, high-dose, trivalent, PF 03/25/20 16 completed Not Available [facility] 06/10/2019 02:16:57 Past Encounters Encounter ID Performer Location Encounter Start Date Encounter Closed Date Diagnosis/Indication Diagnosis SNOMED-CT Code Diagnosis ICD10 Code Diagnosis Note [id number] AMERICA Leavitt [employer] [address] [place] [address] 09/19/2015 10:47:43 09/19/2015 12:17:07 Pain 01894033 R52 Muscle spasm, cramps and joint pain. Broad ddx including electrolyt e abnormalit y, rheumatolo gic disorder, malignancy , GIB, small possibilit y this could be PMR. Will obtain labs now and call to f/u. Offered to start prednisone 20 mg one tab daily x 45 days and will call tomorrow. Patient and agree to plan. Abnormal b reath sounds 279120565 R09.89 Will hold off on CXR at this time. Will discuss obtaining LDCT once she is feeling better. Restless legs 93984921 G 25.81 She is asking to have gabapentin increased. She is currently on gabapentin 600 mg po 3 times a day. Therefore, we will increase to gabapentin 800 mg 3 times a day. F/u next ov. [id number] AMERICA Leavitt [employer] [address] [place] [address] 09/23/2015 15:08:59 09/23/2015 16:27:42 Iron deficiency anemia 72553254 D50.9 09/23/15 Continue iron one tab BID. [...] reoccuring symptoms. Patient agrees with plan. Constipation 07595076 K5 9.00 Secondary to iron supplement . Pain 61191013 R52 Muscle spasm, cramps and joint pain. [...] will most likely have to travel. Consider [facility] n or [facility] d since she is from [place]. Edema 591657665 R60.9 Now trace. Continue to monitor. Elevate TID/PRN. Call for any increased swelling. Abnormal b reath sounds 946427317 R09.89 + smoker. Will discuss obtaining LDCT next ov. Restless legs 38337555 G 25.81 Gabapentin increased from 600 mg to 800 mg 3 times a day with good effect. Continue to monitor. [id number] AMERICA Leavitt [employer] [address] [place] [address] 10/09/2015 09:36:24 10/09/2015 10:32:41 Hypomagnesemia 235820491 E83.42 Hyperlipidemia 22110372 E78.5 Pain 25022015 R52 Muscle spasm, cramps and joint pain. [...] will most likely have to travel. Consider [facility] or [facility] d since she is from [place]. 10/09/15 Amenable to Dominik gonzalez. Start prednisone 40 mg x 5 days and then 20 mg x 5 days. RTC 10/18/15. Iron defic iency anemia 98021935 D50.9 09/23/15 Continue iron one tab BID. [...] as noted above prior to next ov. [id number] AMERICA Leavitt [employer] [address] [place] [address] 10/18/2015 10:35:56 10/18/2015 11:59:47 Smoker 59619271 F17.200 She plans on trying the nicotine lozenges. Pain 97635202 R52 Muscle spasm, cramps and joint pain. [...] will most likely have to travel. [facility] she is from [place]. 10/09/15 Amenable to Dominik gonzalez. Start prednisone 40 mg x 5 days and then 20 mg x 5 days. RTC 10/18/15. 10/18/15 Awaiting call from Dominik gonzalez [place] . Informatio n provided for Dr. Jennifer mann in [facility]. Another trial of lower dose prednisone . Constipation 31149639 K5 9.00 Secondary to iron supplement . Contact Dr. Almonte for any worsening symptoms. Iron defic iency anemia 76002472 D50.9 09/23/15 Continue iron one tab BID. [...] current dose. Recheck labs one month Edema 861423264 R60.9 Now trace. Continue to monitor. Elevate TID/PRN. Call for any increased swelling. 10/18/15 Instructio ns as above. Hypertensive disorder 38 811538 I10 Borderline today. She smoked just prior to coming in. Continue to monitor. She is currently not on any medication s. [id number] AMERICA Leavitt [employer] [address] [place] [address] 01/17/2016 08:25:13 01/17/2016 09:36:59 Hypertensive disorder 21278822 I10 Borderline today. She smoked just prior to coming in. Continue to monitor. She is currently not on any medication s.01/16/16 Same today. Continue to monitor. Pain 79538853 R52 Muscle spasm, cramps and joint pain. [...] will most likely have to travel. Consider [facility] n or [facility] d since she is from [place]. 10/09/15 Amenable to Rheumatkael gonzalez. Start prednisone 40 mg x 5 days and then 20 mg x 5 days. RTC 10/18/15. 10/18/15 Awaiting call from Rheumatkael gonzalez [place] . Informatio n provided for Dr. Jennifer mann in [facility]. Another trial of lower dose prednisone .01/17/16 [...] able to passively bend it. Joint pain 10264157 M25. 50 01/17/16 Prednisone is effective for joint pain. Iron defic iency anemia 10733540 D50.9 09/23/15 Continue iron one tab BID. [...] will forward results. Call to f/u Edema 359927741 R60.9 Now trace. Continue to monitor. Elevate TID/PRN. Call for any increased swelling. 10/18/15 Instructio ns as above. Currently denies. Continue to monitor. call with worsening symptoms. Constipation 12985592 K5 9.00 Secondary to iron supplement . Contact Dr. Almonte for any worsening symptoms. Controlled with metamucil or colace daily. Smoker 11956438 F17.200 She plans on trying the nicotine lozenges. She is down to 5 cigarettes daily. Encouraged continued efforts to quit. Restless legs 81570559 G 25.81 Gabapentin increased from 600 mg to 800 mg 3 times a day with good effect. Continue to monitor.01/17/16 Take 1.5 tablets at 4 pm and then take 1.5 tablets 2 hours prior to bedtime per Up-to-date recommenda tions. Instructed to call in one week if no effect. Screening for malignant neoplasm of breast 194896740 Z12.31 She would like to have mammo in [facility]. She is going back for labs next week and will request then. Exposure t o Hepatitis C virus 752531080 Z20.5 She is having screening completed by Dr. Arora. Administra tion of influenza vaccine 85308685 Z23 She plans on having at [facility] d/t complete coverage. Screening for osteoporosis 046718280 Z13.820 She would like to have in [facility]. She is going back for labs next week and will request then. [id number] AMERIAC Leavitt [employer] [address] [address] 04/08/2016 09:25:36 04/08/2016 10:56:31 Osteoporosis 41261214 M81.0 She reports she was told not to take calcium or vitamin d in the past.She is taking magnesium at night. Edentulous .Amenable to starting Fosamax. Hold and complete labs and f/u. Iron defic iency anemia 04144436 D50.9 09/23/15 Continue iron one tab BID. [...] Repeat labs and call to f/u. Hypomagnesemia 362686580 E83.42 04/08/16 worsening RLS. Repeat labs and call to f/u. Hypertensive disorder 38 336611 I10 Reasonable . She is currently not taking anything. Restless legs 80276475 G 25.81 Gabapentin increased from 600 mg [...] She is currently taking 2,400 mg daily. [id number] AMERICA Leavitt [employer] [address] [place] [address] 04/20/2016 08:30:02 04/20/2016 09:51:39 Hypomagnesemia 757540482 E83.42 04/08/16 worsening RLS. Repeat labs and call to f/u. mag WNL. Continue mag 400 mg daily. Continue to monitor. Osteoporosis 95931221 M8 1.0 She reports she was told [...] due in 2019. Iron defic iency anemia 56590924 D50.9 09/23/15 Continue iron one tab BID. [...] Review labs from Dr. Arora. Restless legs 20033411 G 25.81 Gabapentin increased from 600 mg [...] at 3200 mg daily. Rheumatoid arthritis 6[address] Jenkins on 04/16/16 and he started her on methotrexa te 2.5 mg four tabs once a week and folic acid 1 mg daily. She is having worsening hand pain today. She did take prednisone this morning. Abnormal weight gain 161 554773 R63.5 She has developed pain over the past several years and therefore has not been as active as she once was. Counseling provided. We discussed swimming and stationary bike. She would have to learn how to swim if she does pursue water aerobics, but is open to the idea. Will re-check TSH in the interim. Screening for malignant neoplasm of respiratory tract 815017914 Z12.2 Counseling provided. Declines screening at this time. Hyperlipidemia 26733840 E78.5 03/2015 LDL 81, HDL 70 Trigs WNL and she has quit smoking. Will continue to monitor. [facility] 443673426 Z00.00 Overweight . Bilateral hand swelling and decreased ROM. Overweight 675092709 E66 .3 She has developed pain over the past several years and therefore has not been as active as she once was. Counseling provided. We discussed swimming and stationary bike. She would have to learn how to swim if she does pursue water aerobics, but is open to the idea. Will re-check TSH in the interim. Administra tion of pneumococcal vaccine 72960637 Z23 pneumovax due . [id number] [employer] [address] [place] [phone] 07/20/2016 08:27:12 07/20/2016 09:27:37 Osteoporosis 32405281 M81.0 She reports she was told not [...] no change. Continue as above. Restless legs 57823825 G 25.81 Gabapentin increased from 600 mg [...] Continue as above. Iron defic iency anemia 12877488 D50.9 09/23/15 Continue iron one tab BID. [...] f/u. Continue iron 325 mg bid. Hypomagnesemia 566732593 E83.42 04/08/16 worsening RLS. Repeat labs and call to f/u. mag WNL. Continue mag 400 mg daily. Continue to monitor. Will update level since she is having intermitte nt severe pain. Rheumatoid arthritis 698 [address] Jenkins on 04/16/16 and he started her on methotrexa te 2.5 mg four tabs once a week and folic acid 1 mg daily. She is having worsening hand pain today. She did take prednisone this morning. 07/20/[address] sIsa last week. I will request notes. Continues with severe intermitte nt pain and weight gain with steroid. Frustrated . Encouraged to call to f/u. Abnormal weight gain 161 910709 R63.5 She has developed pain over the [...] Screening for malignant neoplasm of respiratory tract 603854863 Z12.2 Counseling provided. Declines screening at this time. Hyperlipidemia 38951784 E78.5 03/2015 LDL 81, HDL 70 Trigs WNL and she has quit smoking. Will continue to monitor. Rechecking now. Call to f/u. Continue pravastati n 40 mg daily. Overweight 536392691 E66 .3 She has developed pain over [...] mg daily. Administra tion of pneumococcal vaccine 07822227 Z23 pneumovax due Sep, 2016. Vitamin D deficiency 347 63322 E55.9 Level was 10 at the end of Mar and for some reason another level was drawn early at the end of April and 35 after only one month of high dose. Gastroesop hageal reflux disease 159968904 K21.9 Swelling 56344322 R60.9 Also c/o pills getting stuck. Occasional ly choking on liquid. Most likely subcutaneo us tissue. Recommend u/s to r/o any thyroid d/o. Hx of weight gain. She would like to hold off for now d/t financials . Dysphagia 12244994 R13.1 0 New history of pills getting stuck. Occasional ly choking on liquid. Denies any food becoming stuck. She is sitting up. She reports swelling in lower neck. Severe heartburn. She is taking Pepto with good effect. She will call Dr. Almonte for ov aby. [id number] [employer] Le[employer] [address] [place] [address] [place] [address] 11/16/2016 09:06:32 11/16/2016 10:29:28 Osteoporosis 34945095 M81.0 2015 She reports she was told [...] Needs PTH updated. Continue fosamax. Restless legs 10275488 G 25.81 2015 Gabapentin increased from 600 [...] with any changes. Iron defic iency anemia 17272676 D50.9 09/23/15 Continue iron one tab BID. [...] normalizes . Patient agrees with plan. Hypomagnesemia 761123380 E83.42 04/08/16 worsening RLS. Repeat labs and call to f/u. mag WNL. Continue mag 400 mg daily. Continue to monitor. Will update level since she is having intermitte nt severe pain. continue mag oxide 400 mg daily. Most recent level was 2.6 in July,. Rheumatoid arthritis 698 [address] M06.[address] Jenkins on [...] end of Jan. Abnormal weight gain 161 331910 R63.5 2015 She has developed pain over [...] Screening for malignant neoplasm of respiratory tract 488866614 Z12.2 Counseling provided. Declines screening at this time. Hyperlipidemia 35313411 E78.5 03/2015 LDL 81, HDL 70 Trigs WNL and she has quit smoking. Will continue to monitor. Rechecking now. Call to f/u. Continue pravastati n 40 mg daily. Overweight 298729316 E66 .3 2015 She has developed pain [...] diet mods. Administra tion of pneumococcal vaccine 37078222 Z23 pneumovax due Mar, 2017. Vitamin D deficiency 347 77218 E55.9 2016 Level was 10 at the [...] 50,ooo units weekly. Gastroesop hageal reflux disease 738460061 K21.9 Dysphagia 80517140 R13.1 0 11/16/16 Resolved since starting omeprazole [...] Almonte for ov aby. Cobalamin deficiency 190 741943 E53.8 Constipation 84794998 K5 9.00 2015 Secondary to iron supplement . Contact Dr. Almonte for any worsening symptoms. Controlled with metamucil or colace daily.11/16 Stable. As above. Nicotine dependence 5629 4008 F17.200 Cessation advised. [id number] [employer] [address] [place] [address] NATHANAEL RIVERA [phone] 12/23/2016 08:34:42 12/23/2016 09:28:44 Rib pain 452213393 R07.81 12/23/16 Left posterior ribs 5 - 9 CT 12/02/16. Pain well controlled with tramadol and Tylenol. Recommende d she take tramadol aby and continue as needed. She is well aware of potential side effects and she will continue to attempt to use sparingly. Chronic ob structive pulmonary disease 21234869 J44.9 12/23/16 She must reschedule appt with [...] with albuterol INH prn for now. Pneumonia 413569531 J18. 9 12/23/16 Improved. Counseling , education and instructio ns provided re: use of IS. Use 10x/hr while awake as tolerated. Admits IS is at home but they will p/u to bring to daughter-i n-law's. Call with any fevers, chills, worsening cough, sob, sputum production , wheeze, weakness, fatigue. Smoker 50218708 F17.200 12/23/16 Quit 03/2016. But has been smoking 3 - 5 cigarettes daily. She plans on trying the nicotine lozenges. She is down to 5 cigarettes daily. Encouraged continued efforts to quit. Dyspnea 412267111 R06.00 Edema of l ower extremity 189211979 R60.0 Conservati ve measures. Will try stockings. checking echo. Elevated blood-pressure reading without diagnosis of hypertension 033843501 R03.0 12/23/16 Currently having moderate amount of pain. Daughter-kylie boo does have mannual cuff and will check readings. She states she is well versed on BP home monitoring . Instructed to call with BP readings sustained >140/90. [id number] [employer] [address] [place] [address] 01/01/2017 16:02:03 01/01/2017 17:10:31 Elevated blood-pressure reading without diagnosis of hypertension 546783102 R03.0 01/01/17 Reasonable today. Continue to monitor. Currently having moderate amount of pain. Daughter-kylie boo does have manual cuff and will check readings. She states she is well versed on BP home monitoring . Instructed to call with BP readings sustained >140/90. Chronic ob structive pulmonary disease 89842788 J44.9 01/01/17 No formal dx. Still need [...] with albuterol INH prn for now. Smoker 46391943 F17.200 01/01/17 as noted below..Nasim rocha advised. Quit 03/2016. But has been smoking 3 - 5 cigarettes daily. She plans on trying the nicotine lozenges. She is down to 5 cigarettes daily. Encouraged continued efforts to quit. Edema of l ower extremity 908001714 R60.0 01/01/17 worse. Acute onset RLE this am, pain. Sending to er.12/23/16 Conservati ve measures. Will try stockings. checking echo. Rib pain 638494849 R07.8 1 01/01/17 controlled with tramadol. She will need to taper off. 7 Left posterior ribs 5 - 9 CT 12/02/16. Pain well controlled with tramadol and Tylenol. Recommende d she take tramadol aby and continue as needed. She is well aware of potential side effects and she will continue to attempt to use sparingly. Dyspnea 380306588 R06.00 could possibly perform pft's today but will not be beneficial at this time d/t priority to r/o PE/DVT. Sending to ER. [id number] [employer] Le[employer] Ulysses [employer] [address] [place] [phone] 02/04/2017 16:04:28 02/05/2017 08:43:30 Edema of lower extremity 490490967 R60.0 02/04/2017 much improved. Continue Lifestyle modificati ons and continue to monitor and call with any changes. worse. Acute onset RLE this am, pain. Sending to er.12/23/16 Conservati ve measures. Will try stockings. checking echo. Dyspnea 963262053 R06.00 02/04/17 PFT's today are showing restrictio [...] Elevated blood-pressure reading without diagnosis of hypertension 964270443 R03.0 02/04/17 slightly elevated but still reasonable considerin g her age. Continue to monitor. Reasonable today. Continue to monitor. Currently having moderate amount of pain. Daughter-i n -law does have manual cuff and will check readings. She states she is well versed on BP home monitoring . Instructed to call with BP readings sustained >140/90. Chronic ob structive pulmonary disease 73968558 J44.9 02/04/17 PFTs today reveal restrictiv e [...] with albuterol INH prn for now. Smoker 40192952 F17.200 02/04/17 cessation advised. as noted below. Cessation advised. Quit 03/2016. But has been smoking 3 - 5 cigarettes daily. She plans on trying the nicotine lozenges. She is down to 5 cigarettes daily. Encouraged continued efforts to quit. Rib pain 785861224 R07.8 1 02/04/17 continues to improve. She [...] to attempt to use sparingly. Restless legs 18464221 G 25.81 2015 Gabapentin increased from 600 [...] to taper off gabapentin . Pruritic disorder 995889 002 L29.9 BLE's. She will continue to maintain moisturiza tion and she can try sarna lotion. Rheumatoid arthritis 698 57316 M06.[address] Jenkins on [...] Arora is leaving the practice. Coronary atherosclerosis 255863587 I25.10 02/04/17 CT chest In November w/ Mild atheroscle rosis of coronary arteries. She continues on pravastati n 40 mg daily. Aspirin is currently on hold. Iron defic iency anemia 94267434 D50.9 09/23/15 Continue iron one tab BID. [...] Will continue to monitor. Psoriatic arthritis 1563 58689 L40.50 see RA Vitamin D deficiency 347 74446 E55.9 2016 Level was 10 at the [...] weekly.01/09 12/24 Needs repeated. Cobalamin deficiency 190 132466 E53.8 [facility] 6699 9008 E21.3 [id number] [employer] Le[employer] [address] [place] [phone] 04/21/2017 08:31:53 04/21/2017 10:45:12 Influenza vaccine needed 5345002352 106 Z23 Administra tion of pneumococcal vaccine 45001351 Z23 Hyperparathyroidism 6699 9008 E21.3 Elevated PTH. Vit d3 is not significan tly low, calcium is normal. Referring to Endocrinol madhuri for eval. Dyspnea 249106876 R06.00 04/21/[address] in February due [...] to ER. Edema of l ower extremity 973372839 R60.0 04/21/17 Currently asymptomat ic. 017 much improved. Continue Lifestyle modificati ons and continue to monitor and call with any changes. worse. Acute onset RLE this am, pain. Sending to er.12/23/16 Conservati ve measures. Will try stockings. checking echo. Elevated blood-pressure reading without diagnosis of hypertension 887777276 R03.0 04/21/17 Home readings are borderline . [...] call with BP readings sustained >140/90. Smoker 79675656 F17.200 04/21/17 Cessation advised. Continues to work on quitting. maintainin g 3 cigarettes daily at this point. 02/04/17 cessation advised. as noted below. Cessation advised. Quit 03/2016. But has been smoking 3 - 5 cigarettes daily. She plans on trying the nicotine lozenges. She is down to 5 cigarettes daily. Encouraged continued efforts to quit. Rib pain 267122811 R07.8 1 04/21/17 Resolved. continues to improve. [...] to attempt to use sparingly. Restless legs 15392724 G 25.81 2016 Gabapentin increased from 600 [...] tab daily with good effect. Pruritic disorder 989415 002 L29.9 04/21/17 Resolved. Sarna lotion with good effect.01/08 7 BLE's. She will continue to maintain moisturiza tion and she can try sarna lotion. Iron defic iency anemia 64979909 D50.9 09/23/15 Continue iron one tab BID. [...] There is no change. Rheumatoid arthritis 698 50437 M06.[address] Jenkins on [...] following with Antonio Sepulveda. Psoriatic arthritis 1563 78318 L40.50 see RA Coronary atherosclerosis 010326082 I25.10 04/21/17 LDL 63. Continue pravastati n. NO asa - risks outweight benefits d/t hx of stomach ulcers. Patient agrees with plan. CT chest In November w/ Mild atheroscle rosis of coronary arteries. She continues on pravastati n 40 mg daily. Aspirin is currently on hold. Vitamin D deficiency 347 45665 E55.9 2015 Level was 10 at the [...] and repeat in July. Cobalamin deficiency 190 063336 E53.8 04/21/17 Level currently 279. Increase supp to total of b12 1,000 mcg daily. Recheck in July. Adult heal th examination 835227308 Z00.00 10 yr plan provided to patient [...] only cover every other year. Therefore due 02/24.[place] n cancer screening: Colonoscop y 10/[address] Almonte. +diverticu la- left side, hyperplast ic polyp x 4, was told screening no longer indicated. Cervical cancer screening: s/p LUCY. screening no longer indicated. Lung cancer screening: She actually had a CT chest on 02/12/17 with No significan t pulmonary nodule .Os teoporosis screening: + osteoporos is. Repeat due 2018.Refus ing zoster vaccinatio n despite counseling .Otherwise , UTD with screenings and immunizati ons. Screening for malignant neoplasm of breast 224402016 Z12.31 04/21/17 Most recent mammo 02/22 and negative. She declines this year stating she cannot afford b/c insurance will only cover every other year. Screening for malignant neoplasm of colon 507322951 Z12.11 04/21/17 Colonoscop y 10/2015 with diverticul a, left side, hyperplast ic polyp x 4, was told screening no longer indicated. Hypomagnesemia 292995486 E83.42 04/21/17 2.1. Continue mag ox 400 mg daily. At [facility] risk for falls 385737586 Z91.81 Does have cane and walker, hospital bed w/rails, handle bars in shower. Care instructio ns for preventing falls discussed. She declines any further assistance at home. Overweight 156780117 E66 .3 She is just over cusp of normal bmi. Difficult to tolerate exercise d/t joint pain. Continue efforts towards healthy diet. Osteoporosis 41522859 M8 1.0 04/21/17 Tolerating Fosamax w/out issues. BMD due 2018.02/27 BMD w/Severe osteoporos is. 12/1/16 starting fosamax. Constipation 06567725 K5 9.00 Secondary to iron use. Controlled . Continue colace one cap daily. Ulcer 652822918 L98.9 Accountabl e to iron def per Dr. Almonte. Continue to avoid NSAIDS including asa. Continue omeprazole 20 mg daily. Refer back to Dr. Almonte with any changes. Continue to monitor. see cbc/iron. Chronic rhinitis 6439539 6 J31.0 Continue nasal steroid prn. Congestion [...] Bentley Member ID Guarantor Name 11/16/2016 1 [facility] MEDICARE COMPLETE CHOICE (MEDICARE REPLACEMENT PPO) [id number] Yoli A Bienvenue [id number] Yoli A Bienvenue 12/23/2016 1 [facility] MEDICARE COMPLETE CHOICE (MEDICARE REPLACEMENT PPO) [id number] Yoli A Bienvenue [id number] Yoli A Bienvenue 01/01/2017 1 [facility] MEDICARE COMPLETE CHOICE (MEDICARE REPLACEMENT PPO) [id number] Yoli A Bienvenue [id number] Yoli A Bienvenue 02/04/2017 1 [facility] - MEDICARE COMPLETE CHOICE (MEDICARE REPLACEMENT PPO) [id number] Yoli A Bienvenue [id number] Yoli A Bienvenue 04/21/2017 1 [facility] MEDICARE COMPLETE CHOICE (MEDICARE REPLACEMENT PPO) [id number] Yoli A Bienvenue [id number] Yoli A [employer]ienvenue Notes Date Note Type Note Provider Name and Address Organization Details Recorded Time 11/16/2016 text/html Patient presents today to follow up multiple issues. Her last visit was in July. She has a history of psoriatic/rheumatoi d arthritis and she has been following with Dr. Jenkins in [place], [place]. She was started on methotrexate 2.5 [...] I encouraged her to f/u with her genetic technologist, Dr. Almonte, but she presents today stating [...] well controlled with colace prn. Maddison Ta, ON LICENSE OF [facility] [place], [address], [facility] - [facility] 11/16/2016 14:21:27 12/23/2016 text/html Patient presents today to follow-up multiple ER visits, and hospital admission to [facility] December 01 through December 07 for multiple rib fractures after a fall. She was also diagnosed with pneumonia. She was discharged home with [facility]. She was scheduled for a follow-up [...] 6h prn. She presents today with her [id number]. She states pain persists but trying to [...] in the hospital as well. Staying with [id number]. is at home attempting to recover on [...] Denies chest pain, palpitations, nausea, bowel/bladder problems. Maddison Ta, [employer] [address] [facility], [place], [address], [place] 12/26/2016 10:34:54 01/01/2017 text/html Presents today w [...] did sleep well last night. Maddison Ta, [facility] [address] [facility], [place], [address], [facility] [employer] 01/04/2017 19:20:48 02/04/2017 text/html I saw her on Dec and sent her to the ER after she presented at 5:00 on Wednesday with acute onset of left lower extremity swelling and pain. She had a recent history of pneumonia and rib fractures with intermittent shortness of breath as well. She was going to go to the ER in [place]. However, I had not received any notes. [...] trying not to take them. Maddison Ta, [facility] [address] [place], [address], [facility] - [employer] [facility] 02/04/2017 19:08:22 04/21/2017 text/html Medicare Annual Wellness [...] care to Antonio Sepulveda. [employer] [address] [place], [address], [facility] [employer] [facility] 04/24/2017 11:48:10 OBGyn Episode No OBEpisode recorded.
--- OUTSIDE RECORDS SUMMARY | 2024-08-31 16:38 | XMS_ITS | Encounter Summary ---
Author Organization [employer] [facility] Address [address] [place] [address] Care Team Providers Care Material Reclaimer Name Role Phone John Diamond MD Primary Care Provide r Unavailable Jennifer Bhagat MD Primary Care Provider Unavailabl e [facility], Pcp Primary Care Provider Unavailabl e Encounter Details Date Type Department Care Team Description 07/19/2019 [facility] Medical Records [address] [place] [id number] Inga Barber PA Social History Tobacco Use Types Packs/Day Years Used Date Smoking Tobacco: Some Days Cigarettes 0.5 54 Smokeless Tobacco: Never Comments:patch Alcohol Use Standard Drinks/Week Comments No 0 (1 standard drink = 0.6 oz pur e alcohol) Sex Assigned at Date Recorded Not on file Job Start Date Occupation Industry Not on file Not on file Not on file documented as of this encounter Plan of Treatment Not on file documented as of this encounter Visit Diagnoses Not on filedocumented in this encounter Care Teams Material Reclaimer Relationship Specialty Start Date End Date John Diamond MD PCP - General Internal Medicine 01/03/19 Jennifer Bhagat MD PCP - General Anesthesiology 10/31/20 10/31/20 [facility], Pcp PCP - General Internal Medicine 03/21/21 documented as of this encounter
--- OUTSIDE RECORDS SUMMARY | 2024-08-31 16:38 | XMS_ITS | Encounter Summary ---
Author Organization [facility] Address [address] [place] [address] Care Team Providers Care Gas Leak Inspector Helper Name Role Phone Jennifer Bhagat MD Primary Care Provider Unavailabl e [facility], Pcp Primary Care Provider Unavailabl e Encounter Details Date Type Department Care Team Description 10/31/2020 Telephone [facility] [address] [address] Bradford Bales PA Social History Tobacco Use Types Packs/Day Years Used Date Smoking Tobacco: Some Days Cigarettes 0.5 54 Smokeless Tobacco: Never Comments:patch Alcohol Use Standard Drinks/Week Comments No 0 (1 standard drink = 0.6 oz pur e alcohol) Sex Assigned at Date Recorded Not on file Job Start Date Occupation Industry Not on file Not on file Not on file COVID-19 Exposure Response Date Recorded In the last month, have you been in contact with someone who was confirmed or suspected to have Coronavirus / COVID-19? No / Unsure 10/31/2020 8:42 AM EDT documented as of this encounter Miscellaneous Notes * Telephone Encounter - Soheila Crawford M.A. - 10/31/2020 9:46 AM EDT Patient has a new PCP, Dr. Bhagat. Called patient and left her a message to find out what office works out of. We need to request some labs. documented in this encounter Plan of Treatment Not on file documented as of this encounter Visit Diagnoses Not on filedocumented in this encounter Care Teams Gas Leak Inspector Helper Relationship Specialty Start Date End Date Jennifer Bhagat MD PCP - General Anesthesiology 10/31/20 10/31/20 [facility], Pcp PCP - General Internal Medicine 03/21/21 documented as of this encounter
--- OUTSIDE RECORDS SUMMARY | 2024-08-31 16:38 | XMS_ITS | Encounter Summary ---
Author Organization [employer] [facility] Address [address] [place] [address] Care Team Providers Care Liquor Gallery Operator Name Role Phone John Diamond MD Primary Care Provide r Unavailable Jennifer Bhagat MD Primary Care Provider Unavailabl e [facility], Pcp Primary Care Provider Unavailabl e Encounter Details Date Type Department Care Team Description 07/20/2019 [facility] Medical Records [address] [place] [id number] Lachelle Dean MD Social History Tobacco Use Types Packs/Day Years [...] on filedocumented in this encounter Care Teams Liquor Gallery Operator Relationship Specialty Start Date End Date John Diamond MD PCP - General Internal Medicine 01/03/19 Jennifer Bhagat MD PCP - General Anesthesiology 10/31/20 10/31/20 [facility], Pcp PCP - General Internal Medicine 03/21/21 documented as of this encounter
--- OUTSIDE RECORDS SUMMARY | 2024-08-31 16:38 | XMS_ITS | Encounter Summary ---
Author Organization [facility] Address [address] [place] [address] Care Team Providers Care Nutrition Consultant Name Role Phone John Diamond MD Primary Care Provide r Jennifer Winchester MD Primary Care Provider Unavailabl e [facility], Pcp Primary Care Provider Unavailabl e Reason for Visit * Reason Onset Date Comments TEST RESULTS 02/22/2020 Encounter Details Date Type Department Care Team Description 02/22/2020 Telephone Adult Medicine [address] [address] John Diamond MD TEST RESULTS Social History Tobacco Use Types Packs/Day Years [...] have Coronavirus / COVID-19? No / Unsure 02/19/2020 12:35 PM EDT documented as of this encounter Miscellaneous Notes * Telephone Encounter - Danette Do M.A. - 02/22/2020 1:19 PM EDT Spoke to pt and she will wait for the copy in the mail . * Telephone Encounter - Danette Do M.A. - 02/22/2020 1:15 PM EDT Paula-I talked wit her today she said it was a home fax , I thought. As far as I know we cannot faxwithout an MISA. I will call her back. Maybe someone on verbal can citrus picker a copy. thanks * Telephone Encounter - Devika Dudley PA-C - 02/22/2020 12:34 PM EDT The results were mailed to her home. There is already a letter in the computer. Are we able to fax this without MISA? * Telephone Encounter - Slime Herring - 02/22/2020 10:02 AM EDT Pt would like test results for covid faxed over to correction pt hasnt seen son cannot see son without results Fax documented in this encounter Plan of Treatment Not on file documented as of this encounter Visit Diagnoses Not on filedocumented in this encounter Care Teams Nutrition Consultant Relationship Specialty Start Date End Date John Diamond MD PCP - General Internal Medicine 01/03/19 Jennifer Bhagat MD PCP - General Anesthesiology 10/31/20 10/31/20 [facility], Pcp PCP - General Internal Medicine 03/21/21 documented as of this encounter
--- OUTSIDE RECORDS SUMMARY | 2024-08-31 16:38 | XMS_ITS | Encounter Summary ---
Author Organization [facility] Address [address] [place] [address] Care Team Providers Care Radar Technician Name Role Phone John Diamond MD Primary Care Provide r Jennifer Winchester MD Primary Care Provider Unavailabl e [facility], Pcp Primary Care Provider Unavailabl e Reason for Visit * Reason Onset Date Comments hospital follow up 06/09/2019 Encounter Details Date Type Department Care Team Description 06/09/2019 Telephone Adult Medicine - [address] [address] John Diamond MD hospital follow up Social History Tobacco Use Types Packs/Day Years Used Date Smoking Tobacco: Every Day Cigarettes 0.5 54 Smokeless Tobacco: Never Comments:10 cig per day Alcohol Use Standard Drinks/Week Comments No 0 (1 standard drink = 0.6 oz pur e alcohol) Sex Assigned at Date Recorded Not on file Job Start Date Occupation Industry Not on file Not on file Not on file documented as of this encounter Miscellaneous Notes * Telephone Encounter - Tammie Vega M.A. - 06/09/2019 3:22 PM EST Encounter printed to request notes. * Telephone Encounter - Sharla Jimenez L.P.N. - 06/09/2019 3:15 PM EST Booked 06/15 with pcp please get notes * Telephone Encounter - Felicia Vadimsusan - 06/09/2019 3:07 PM EST Hospital follow up appointment needed Hospital patient was treated at: [facility] Was this only an ER visit or was the patient admitted to the hospital? Admitted to hospital Date of visit if ER visit only: N/A If patient was admitted what was the date of discharge? 06/09/2019 Reason/diagnosis for visit or stay: low iron When was the patient told to follow up? Within 1 week Was visit or stay related to an injury? NO If yes, what was the date of injury (DOI)? N/A If yes, was the injury due to N/A documented in this encounter Plan of Treatment Not on file documented as of this encounter Visit Diagnoses Not on filedocumented in this encounter Care Teams Radar Technician Relationship Specialty Start Date End Date John Diamond MD PCP - General Internal Medicine 01/03/19 Jennifer Bhagat MD PCP - General Anesthesiology 10/31/20 10/31/20 [facility], Pcp PCP - General Internal Medicine 03/21/21 documented as of this encounter
--- OUTSIDE RECORDS SUMMARY | 2024-08-31 16:38 | XMS_ITS | Encounter Summary ---
Author Organization [employer] [facility] Address [address] [place] [address] Care Team Providers Care Fall Intern Name Role Phone John Diamond MD Primary Care Provide r Unavailable Jennifer Bhagat MD Primary Care Provider Unavailabl e [facility], Pcp Primary Care Provider Unavailabl e Encounter Details Date Type Department Care Team Description 07/06/2019 Orders Only Rheumatology - [address] [address] Bradford Bales PA Social History Tobacco Use [...] on filedocumented in this encounter Care Teams Fall Intern Relationship Specialty Start Date End Date John Diamond MD PCP - General Internal Medicine 01/03/19 Jennifer Bhagat MD PCP - General Anesthesiology 10/31/20 10/31/20 [facility] Pcp PCP - General Internal Medicine 03/21/21 documented as of this encounter
--- OUTSIDE RECORDS SUMMARY | 2024-08-31 16:39 | XMS_ITS | Encounter Summary ---
Author Organization [employer] [facility] Address [address] [place] [address] Care Team Providers Care Distillery Manager Name Role Phone John Diamond MD Primary Care Provide r Unavailable Jennifer Bhagat MD Primary Care Provider Unavailabl e [facility], Pcp Primary Care Provider Unavailabl e Encounter Details Date Type Department Care Team Description 05/05/2019 Aquaculture Director Report Medical Records [address] [place] [id number] Yara Hoffman NP Social History Tobacco Use Types Packs/Day Years Used Date Smoking Tobacco: Every Day Cigarettes 0.5 54 Smokeless Tobacco: Never Comments:7-8 cig per day Alcohol Use Standard Drinks/Week [...] on filedocumented in this encounter Care Teams Distillery Manager Relationship Specialty Start Date End Date John Diamond MD PCP - General Internal Medicine 01/03/19 Jennifer Bhagat MD PCP - General Anesthesiology 10/31/20 10/31/20 [facility] Pcp PCP - General Internal Medicine 03/21/21 documented as of this encounter
--- OUTSIDE RECORDS SUMMARY | 2024-08-31 16:39 | XMS_ITS | Encounter Summary ---
Author Organization [facility] Address [address] [place] [address] Care Team Providers Care Salesperson Furs Name Role Phone Katherine Catherine Primary Care Provider John Ayala MD Primary Care Provide r Unavailable Jennifer Bhagat MD Primary Care Provider Unavailabl e [facility], Pcp Primary Care Provider Unavailabl e Encounter Details Date Type Department Care Team Description 06/14/2018 Release of Information Medical Records [address] [place] [id number] Abstract, Provider Social History Tobacco Use Types Packs/Day Years Used Date Smoking Tobacco: Former Cigarettes 0.3 Smokeless Tobacco: Never Alcohol Use Standard Drinks/Week Comments No 0 [...] on filedocumented in this encounter Care Teams Salesperson Furs Relationship Specialty Start Date End Date Katherine Catherine PCP - General Internal Medicine 04/20/18 01/02/19 John Diamond MD PCP - General Internal Medicine 01/03/19 Jennifer Bhagat MD PCP - General Anesthesiology 10/31/20 10/31/20 [facility], Pcp PCP - General Internal Medicine 03/21/21 documented as of this encounter
--- OUTSIDE RECORDS SUMMARY | 2024-08-31 16:39 | XMS_ITS | Encounter Summary ---
Author Organization [facility] Address [address] [place] [address] Care Team Providers Care Budget Officer Name Role Phone Twan Worthington Primary Care Provider [phone] Katherine Catherine Primary Care Provider John Ayala MD Primary Care Provide r Unavailable Jennifer Bhagat MD [facility] Provider Unavailabl e Encounter Details Date Type Department Care Team Description 11/17/2013 Release of Information Medical Records [address] [place] [address] Abstract, Provider Social History Tobacco Use Types [...] on filedocumented in this encounter Care Teams Budget Officer Relationship Specialty Start Date End Date Twan Worthington [address] [place] [address] PCP - General Pediatrics 10/30/13 04/19/18 Katherine Catherine [address] [place] [id number] PCP - General Internal Medicine 04/20/18 01/02/19 John Diamond MD [address] [place] [id number] PCP - General Internal Medicine 01/03/19 10/30/20 Jennifer Bhagat MD [address] [place] [id number] PCP - General Anesthesiology 10/31/20 10/31/20 Pending Sale To [facility], Pcp [address] [place] [address] PCP - General Internal Medicine 03/21/21 documented as of this encounter
--- OUTSIDE RECORDS SUMMARY | 2024-08-31 16:39 | XMS_ITS | Encounter Summary ---
Author Organization [facility] Address [address] [place] [address] Care Team Providers Care Sewer Separation Designer Name Role Phone Katherine Catherine Primary Care Provider Arpita John Avitia MD Primary Care Provide r Unavailable Jennifer Bhagat MD Primary Care Provider Unavailabl e [facility], Pcp Primary Care Provider Unavailabl e Encounter Details Date Type Department Care Team Description 12/07/2018 [facility] Medical Records [address] [place] [address] Derick Michelle MD Social History Tobacco Use Types Packs/Day [...] on filedocumented in this encounter Care Teams Sewer Separation Designer Relationship Specialty Start Date End Date Katherine Catherine PCP - General Internal Medicine 04/20/18 01/02/19 John Diamond MD PCP - General Internal Medicine 01/03/19 Jennifer Bhagat MD PCP - General Anesthesiology 10/31/20 10/31/20 [facility], Pcp PCP - General Internal Medicine 03/21/21 documented as of this encounter
--- NOTE | 2024-08-31 16:48 | P.HPHOSP_ITS ---
History of Present Illness Date of Service: 08/31/24 Chief Complaint: fatigue and melena 79F PMH copd, duodenal AVMs, rheumatoid arthritis on chronic prednisone, htn, pseudogout, iron deficiency anemia, presented with fatigue and melena. patient states symptoms began 1 week prior to presentation. Has been having progressive fatigue and melanotic stools. Was so severe on day of presentation that she called the ambulance. Denies any NSAID use but is on chronic steroids for rheumatoid arthritis. Has had GI bleed in the past and was diagnosed with duodenal AVMs in 2021. She does not take antiplatelets, anticoagulation. In ED hemoglobin noted to be 3.8, 3 units of PRBC ordered. 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 Surgical History S/P appendectomy H/O parathyroidectomy Status post hip surgery Social History Household Members: None Housing: Apartment Alcohol intake: never Comment: pain related to RLS, medicated with requip Patient Tobacco Use Status: Current everyday Tobacco user Tobacco use type: Cigarette Cigarettes Per Day: 5 Years Smoked: 55 Smoked in Last 30 Days: Yes e-Cigarette/Vaping Use: Never Used Second Hand Smoke Exposure: Yes Use of substances other than those prescribed or required for medical reasons: No Advance Directives: Yes Advance Directives on File: Yes Advance Directives Date on File: 09/10/23 Do you have a plan to hurt others: No Plan service: No Current occupational status: retired 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 Current occupational exposures/hazards: No Cognitive needs: No Hearing needs: No Vision needs: Yes Meds Allergies Allergy/AdvReac Type Severity Reaction Status Date / Time oxycodone [From OxyContin] Allergy Mild Hives Verified 08/31/24 13:03 [place] Allergy Mild Hives & Uncoded 05/22/24 14:49 Swollen legs Active Medications: Current Medications Acetaminophen (Acetaminophen 325 Mg Tablet) 650 mg PO Q6H PRN PRN Reason: Pain, Mild 1-3,fever,headache Calcium Carbonate (Calcium Carbonate 750 Mg Tab.Chew) 750 mg PO Q4H PRN PRN Reason: Heartburn Magnesium Hydroxide (Milk Of Magnesia 30 Ml Oral.Susp) 30 ml PO DAILY PRN PRN Reason: Constipation Melatonin (Melatonin 3 Mg Tablet) 6 mg PO BEDTIME PRN PRN Reason: Insomnia Pantoprazole Sodium (Pantoprazole Sodium 40 Mg/10 Ml Vial) 40 mg IVPUSH BID@0630,1630 [facility] Sodium Chloride (0.9 % Sodium Chloride Flush 3 Ml Syringe) 3 ml IVFLUSH QSHIFT [facility] Physical Exam 2 Vital Signs and Narrative: Vital Signs: Last Vital Signs Temp 98.1 F 08/31/24 16:04 Pulse 111 H 08/31/24 16:04 Resp 22 H 08/31/24 16:04 BP 138/63 08/31/24 16:04 Pulse Ox 100 08/31/24 16:04 O2 Del Method Room Air 08/31/24 16:04 BMI result Body Mass Index 21.1 General: AO X 3, no acute distress, pale Resp: CTA bilateral, no accessory muscles used CVS: S1,S2,RRR GI: soft, non tender, non distended Neuro: motor grossly intact, alert Psych: appropriate affect, appropriate insight Results Labs 08/31/24 13:08 08/31/24 13:08 Labs: Laboratory Results - last 24 hr 08/31/24 08/31/24 08/31/24 13:08 13:19 13:49 MCV 70.1 L MCH 20.3 L MCHC 29.0 L RDW 19.0 H Plt Count 828 H D MPV 8.4 L Immature Gran % (Auto) 3.0 H Neut % (Auto) 77.9 H Lymph % (Auto) 10.7 L [place] % (Auto) 7.3 Eos % (Auto) 0.8 Baso % (Auto) 0.3 Lymph # (Auto) 1.6 [place] # (Auto) 1.1 Eos # (Auto) 0.1 Baso # (Auto) 0.0 Abs Immat Gran (auto) 0.43 H Absolute Neuts (auto) 11.3 H Absolute Nucleated RBC 0.060 H Nucleated RBC % (auto) 0.4 H Anion Gap 12 Estim Creat Clear Calc 44.8 Estimated GFR > 60 Random Glucose 103 Calcium 8.2 L D Total Bilirubin 0.2 Direct Bilirubin < 0.2 AST 30 ALT 23 Alkaline Phosphatase 68 B-Natriuretic Peptide 114 H Total Protein 6.3 L Albumin 3.2 L Urine Color Urine Appearance Urine pH Ur Specific [place] Urine Protein Urine Glucose (UA) Urine Ketones Urine Blood Urine Nitrite Ur Leukocyte Esterase Urine RBC Urine WBC Ur Squamous Epith Cells Urine Bacteria Hyaline Casts Stool Occult Blood Influenza Type A (PCR) NEGATIVE Influenza Type B (PCR) NEGATIVE RSV RNA Qual (PCR) NEGATIVE SARS-CoV-2 RNA (RT-PCR) NEGATIVE Blood Type A Positive Antibody Screen POSITIVE Antibody Identification Inconclusive LEWIS, Polyspecific NEGATIVE Positive LEWIS Work-up TNP Crossmatch ([facility]) See Detail 08/31/24 13:52 MCV MCH MCHC RDW Plt Count MPV Immature Gran % (Auto) Neut % (Auto) Lymph % (Auto) [place] % (Auto) Eos % (Auto) Baso % (Auto) Lymph # (Auto) [place] # (Auto) Eos # (Auto) Baso # (Auto) Abs Immat Gran (auto) Absolute Neuts (auto) Absolute Nucleated RBC Nucleated RBC % (auto) Anion Gap Estim Creat Clear Calc Estimated GFR Random Glucose Calcium Total Bilirubin Direct Bilirubin AST ALT Alkaline Phosphatase B-Natriuretic Peptide Total Protein Albumin Urine Color Yellow Urine Appearance Clear Urine pH 6.5 Ur Specific [place] <= 1.005 Urine Protein Negative Urine Glucose (UA) Negative Urine Ketones Negative Urine Blood Moderate (2+) H Urine Nitrite Negative Ur Leukocyte Esterase Small (1+) H Urine RBC 0-2 Urine WBC 0-5 Ur Squamous Epith Cells 0-2 Urine Bacteria Trace Hyaline Casts 0-2 Stool Occult Blood POSITIVE Influenza Type A (PCR) Influenza Type B (PCR) RSV RNA Qual (PCR) SARS-CoV-2 RNA (RT-PCR) Blood Type Antibody Screen Antibody Identification LEWIS, Polyspecific Positive LEWIS Work-up Crossmatch ([facility]) Imaging Radiologist's Impressions: Impressions Chest X-Ray 08/31/24 13:25 IMPRESSION: Consider COPD emphysematous type changes without acute airspace disease. Electronically signed by: Lloyd Vidales MD 08/31/2024 01:48 PM EDT Assessment and Plan (1) Iron deficiency anemia: Qualifiers: Iron deficiency anemia type: unspecified iron deficiency Qualified Code(s): D50.9 - Iron deficiency anemia, unspecified Status: Acute Plan 79F PMH copd, duodenal AVMs, rheumatoid arthritis on chronic prednisone, htn, pseudogout, iron deficiency anemia, presented with fatigue and melena Acute on chronic iron-deficiency anemia due to acute blood loss Suspected upper GI bleed IV Protonix 3 units PRBC NPO after midnight for EGD GI eval Monitor hemoglobin Rheumatoid arthritis Continue anti-inflammatories COPD Stable DVT prophylaxis-mechanical due to GI bleed Full Code Severe anemia requiring multiple transfusions, IV ppi, EGD therefore expected to require at least 2 midnights inpatient Quality Stroke Does the patient have a stroke diagnosis?: No VTE Prior VTE?: No VTE Risk Level:: Medical - moderate - high VTE Device Contraindication: N/A - Device Ordered VTE Drug Contraindication: Treatment Not Tolerated
--- NOTE | 2024-08-31 16:52 | PM.GICN ---
History of Present Illness Data of Consult Service Date: 08/31/24 Requesting physician: Christiano Spaulding Primary Care Provider: Burke Vazquez PA-C HPI Reason for consult: acute on chronic anemia, GI bleeding 79 year old frail female with COPD brought to [facility] today by ambulance with 7-10 day hx of shortness of breath and black stools SOB has been worse over the past 24 hours. She says that she has a inhalers for her breathing but she has no nebulizer machine. Pt reports she has had black stools for the past 1 to 1.5 weeks (had brown stools prior to that) She also notes burning and cramping epigastric pain (worse after eating) and constipation for the past week. Pt states abdominal pain has resolved. Patient denies any change in appetite or recent weight loss. Patient smokes half to 1 pack per day of cigarettes and denies EtOH use. 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 She lives in her own apartment and states she is independent with ADLs Patient denies major cardiac or pulmonary problems or problems with anesthesia in the past. PAST GI HISTORY BY REVIEW OF MEDICAL RECORDS: 02/11/22 EGD WAS PERFORMED BY DR. JONES FOR EVALUATION OF IRON-DEFICIENCY ANEMIA: 1. Esophagus: The esophagus was normal. 2. Stomach: There was a small hiatal hernia. There was mild erythema, mainly in the antrum, consistent with antral gastritis. Biopsies were obtained. There was no GI bleeding. No ulcer was seen. 3. Duodenum: There were 2 small nonbleeding duodenal AVMs measuring 1 to 2 mm. No therapy was performed. IMPRESSION: 1. Gastritis. 2. Duodenal arteriovenous malformations. RECOMMENDATION: 1. Advance diet. 2. Continue proton pump inhibitor. 3. Transfuse p.r.n. 4. She may be discharged later today. She should follow up with her primary GI providers at [facility]. 04/12/22 CAPSULE STUDY SHOWED: Findings: stomach mucosa normal. Duodenum entered at 5 min 58 dec. several scattered AVM seen in proximal and mid small bowel that were non bleeding. Largest AVM were in duodenum. Cecum reached at 3 hr 11 min Conclusion: esophagitis AVM if ongoing anemia can consider APC to the lesions vs supportive care. 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 Surgical History Surgical History S/P appendectomy H/O parathyroidectomy Status post hip surgery Social History Social History Household Members: None Housing: Apartment Alcohol intake: never Comment: pain related to RLS, medicated with requip Patient Tobacco Use Status: Current everyday Tobacco user Tobacco use type: Cigarette Cigarettes Per Day: 5 Years Smoked: 55 Smoked in Last 30 Days: Yes e-Cigarette/Vaping Use: Never Used Second Hand Smoke Exposure: Yes Use of substances other than those prescribed or required for medical reasons: No Advance Directives: Yes Advance Directives on File: Yes Advance Directives Date on File: 09/10/23 Do you have a plan to hurt others: No Plan service: No Current occupational status: retired 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 Current occupational exposures/hazards: No Cognitive needs: No Hearing needs: No Vision needs: Yes Meds Allergies Allergy/AdvReac Type Severity Reaction Status Date / Time oxycodone [From OxyContin] Allergy Mild Hives Verified 08/31/24 13:03 [place] Allergy Mild Hives & Uncoded 05/22/24 14:49 Swollen legs Active Medications: Current Medications Acetaminophen (Acetaminophen 325 Mg Tablet) 650 mg PO Q6H PRN PRN Reason: Pain, Mild 1-3,fever,headache Calcium Carbonate (Calcium Carbonate 750 Mg Tab.Chew) 750 mg PO Q4H PRN PRN Reason: Heartburn Magnesium Hydroxide (Milk Of Magnesia 30 Ml Oral.Susp) 30 ml PO DAILY PRN PRN Reason: Constipation Melatonin (Melatonin 3 Mg Tablet) 6 mg PO BEDTIME PRN PRN Reason: Insomnia Pantoprazole Sodium (Pantoprazole Sodium 40 Mg/10 Ml Vial) 40 mg IVPUSH BID@0630,1630 [facility] Sodium Chloride (0.9 % Sodium Chloride Flush 3 Ml Syringe) 3 ml IVFLUSH QSHIFT [facility] Physical Exam Vital Signs: Vital Signs: Last Vital Signs Temp 98.1 F 08/31/24 16:04 Pulse 111 H 08/31/24 16:04 Resp 22 H 08/31/24 16:04 BP 138/63 08/31/24 16:04 Pulse Ox 100 08/31/24 16:04 O2 Del Method Room Air 08/31/24 16:04 BMI result Body Mass Index 21.1 Const: General: no acute distress and other (Pale and frail appearing) Nutritional Appearance: average body habitus Orientation/consciousness: patient oriented x3 Limitations: other limitations HEENT: Head: Yes normal to inspection Ears: hearing grossly normal bilaterally Mouth: Normal oral and palatal mucosa present Eyes: Sclerae: sclerae normal Pupils: Equal, round and reactive pupils present Neck: Neck: Yes normal visual inspection Chest: Chest palpation & inspection: normal inspection of the chest Resp: Effort & Inspection: normal respiratory effort Auscultation: clear to auscultation bilaterally Cardio: Palpation: normal PMI Rate: regular rate Rhythm: regular rhythm Heart sounds: S1 normal heart sound present, S2 normal heart sound present and no murmurs GI: Palpation (GI): Soft to palpation, nontender and No hepatosplenomegaly present Auscultation: normal bowel sounds Rectal Exam - Female: deferred Skin: General skin exam: no rashes or lesions noted Neuro: General: patient oriented x3, gait normal and moves all extremities Cranial nerves: Yes Equal, round and reactive pupils present Psych: Appearance: grossly normal Mental Status: mental status grossly normal Results Labs 08/31/24 13:08 08/31/24 13:08 Labs: Short CBC 08/31/24 Range/Units 13:08 WBC 14.5 H (4.8-10.8) X10*3/uL Hgb 3.8 L* D (12.0-16.0) g/dl Hct 13.1 L* D (37.0-47.0) % Plt Count 828 H D (160-400) X10*3/uL BMP 08/31/24 13:08 Sodium 134 L Potassium 4.2 Chloride 105 Carbon Dioxide 21 L BUN 22 H Creatinine 0.78 Calcium 8.2 L D Liver Function 08/31/24 Range/Units 13:08 Total Bilirubin 0.2 (0.0-1.0) mg/dL Direct Bilirubin < 0.2 (0.0-0.5) mg/dL AST 30 (5-31) U/L ALT 23 (0-31) U/L Alkaline Phosphatase 68 (39-117) U/L Albumin 3.2 L (3.5-5.0) g/dL Urine 08/31/24 Range/Units 13:52 Urine Color Yellow Urine Appearance Clear Urine pH 6.5 (5.0-9.0) Ur Specific [place] <= 1.005 (1.005-1.025) Urine Protein Negative (Neg-Trace) mg/dL Urine Glucose (UA) Negative (Negative) mg/dL Assessment and Plan (1) Iron deficiency anemia due to chronic blood loss: Status: Acute Plan 79 year old frail female with COPD being admitted to [facility] with severe anemia associated with worsening SOB. Pt reports epigastric pain and black stools for the past 1 to 1.5 weeks (had brown stools prior to that) Past GI evaluation showed several scattered AVM in the proximal and mid small bowel that were non bleeding. Largest AVM were in duodenum. Severe anemia is likely from slow GI blood loss from small bowel AVMs. Other possibilities include erosive esophagitis or peptic ulcer disease and less likely GI malignancy RECOMMENDATIONS 1. Agree with IV PPI and blood transfusion 2. Repeat CBC 2 hrs post blood transfusion 3. Further evaluation with EGD for APC of small bowel AVMs is being scheduled on 09/01/24 EGD procedure and potential complications including bleeding, perforation, reaction to anesthetic and aspiration were reviewed with the patient. Procedures Date of Service Date of Service: 08/31/24
[2024-08-31 17:08] LABS: Iron 11 mcg/dL (30-160); Percent Iron Saturation 3 % (15-50); Total Iron Binding Capacity 321 mcg/dL (228-428); Unsaturated Iron Binding 310 ug/dL
[2024-08-31 17:23] LABS: Ferritin 7 ng/mL (10-250)
--- NOTE | 2024-08-31 17:52 | PC.NURSE ---
1st unit of blood given, pt ambulated with stby assist to bathroom
--- NOTE | 2024-08-31 19:15 | PHA.MEDREC ---
Addendum entered by Александр Nassar [facility] 08/31/24 21:25: MED REC CHECKED BY [facility] Original Note: Pharmacy Consult ? Medication Reconciliation Pharmacy has completed the medication reconciliation. patient is a poor historian. Patent states she doesn't know what she takes. Called contacts on file and they could not tell me what medications patient takes. Patient son Mario victoria he hasn't seen his mother in a few months. Utilized claims and called [facility] to confirm med list.
--- NOTE | 2024-08-31 19:27 | PC.NURSE ---
Report taken from Evelyn VARGAS assumed care of pt at 1900. Pt A&Ox3 skin pale warm and dry, respirations even unlabored. Second unit of blood infusing without difficulty no s/s transfusion reaction. Pt denies pain at this time, offers no complaints. Bed assignment received, report in, awaiting transport. Pt aware of plan of care.
[2024-08-31] MEDS: Lidocaine 4 % Patch ADH..PATCH 1 PATCH TRANSDERMA (21:28)
[2024-09-01] VITALS (13 sets, daily range): BP systolic 90–166; BP diastolic 49–92; PULSE 88–110; RESP 18–22; TEMP 36–37.4; O2SAT 89–98; BMI 21.1
[2024-09-01 00:24] LABS: Hematocrit 22.8 % (37.0-47.0); Hemoglobin 7.2 g/dl (12.0-16.0)
[2024-09-01] MEDS: Pantoprazole Sodium 40 MG/10 ML VIAL IVPUSH ×2 (04:44→17:44)
[2024-09-01 07:25] LABS: Hematocrit 28.7 % (37.0-47.0); Hemoglobin 9.3 g/dl (12.0-16.0); Mean Corpuscular HGB Conc 32.4 g/dl (31.0-35.0); Mean Corpuscular Hemoglobin 24.6 pg (27.0-33.0); Mean Corpuscular Volume 75.9 fL (80.0-98.0); Mean Platelet Volume 8.6 fL (9.4-12.3); Platelet Count 779 X10*3/uL (160-400); Red Blood Count 3.78 X10*6/uL (4.20-5.50); White Blood Count 14.3 X10*3/uL (4.8-10.8)
[2024-09-01 07:28] LABS: Anion Gap 13 (12-20); Blood Urea Nitrogen 13 mg/dL (9-16); Calcium 8.6 mg/dL (8.4-10.2); Carbon Dioxide 20 mmol/L (22-29); Chloride 109 mmol/L (96-108); Creatinine Clr Calc Pharmacy 60.3; Estimated Glomerular Filt Rate > 60; Glucose Random 88 mg/dL (60-115); Sodium 138 mmol/L (135-145)
[2024-09-01 07:42] LABS: NRBC Pct Auto 1.1 /100WBC (0.0-0.2)
[2024-09-01] MEDS: Colchicine 0.6 MG TABLET PO ×2 (08:05→20:37)
[2024-09-01] MEDS: Hydroxychloroquine Sulfate 200 MG TABLET PO (08:05)
[2024-09-01] MEDS: amLODIPine Besylate 5 MG TABLET PO (08:05)
[2024-09-01] MEDS: Pravastatin Sodium 40 MG TABLET PO (08:05)
[2024-09-01] MEDS: rOPINIRole HCL 2 MG TABLET PO ×2 (08:06→20:37)
[2024-09-01] MEDS: Lidocaine 4 % Patch ADH..PATCH 1 PATCH TRANSDERMA (08:06)
[2024-09-01] MEDS: 0.9 % Sodium Chloride Flush 3 ML SYRINGE IVFLUSH ×3 (08:06→20:37)
--- NOTE | 2024-09-01 10:50 | HO.PM.IMPN ---
Subjective Subjective Date of Service: 09/01/24 Interval History: much improved Physical Exam Vital Signs: Vital Signs: Last Vital Signs Temp 97.9 F 09/01/24 07:01 Pulse 93 09/01/24 07:01 Resp 18 09/01/24 07:01 BP 164/92 H 09/01/24 08:05 Pulse Ox 97 09/01/24 07:01 O2 Del Method Nasal Cannula 09/01/24 07:01 O2 Flow Rate 2 09/01/24 07:01 BMI result Body Mass Index 21.1 General: AO X 3, no acute distress Resp: CTA bilateral, no accessory muscles used CVS: S1,S2,RRR GI: soft, non tender, non distended Neuro: motor grossly intact, alert Psych: appropriate affect, appropriate insight Objective Data Active Medications Acetaminophen (Acetaminophen 325 Mg Tablet) 650 mg PO Q6H PRN PRN Reason: Pain, Mild 1-3,fever,headache Albuterol Sulfate (Albuterol Sulfate 90 Mcg 8 Gm Inhaler) 2 puff INHALE Q4H PRN PRN Reason: shortness of breath or wheezin Amlodipine Besylate (Amlodipine Besylate 5 Mg Tablet) 5 mg PO DAILY [facility]; Protocol Last Admin: 09/01/24 08:05 Dose: 5 mg Documented By: YAS Calcium Carbonate (Calcium Carbonate 750 Mg Tab.Chew) 750 mg PO Q4H PRN PRN Reason: Heartburn Colchicine (Colchicine 0.6 Mg Tablet) 0.6 mg PO BID [facility] Last Admin: 09/01/24 08:05 Dose: 0.6 mg Documented By: YAS Hydroxychloroquine Sulfate (Hydroxychloroquine Sulfate 200 Mg Tablet) 200 mg PO DAILY [facility] Last Admin: 09/01/24 08:05 Dose: 200 mg Documented By: YAS Lidocaine (Lidocaine 4 % Patch Adh..Patch) 1 patch TRANSDERMA DAILY [facility]; Protocol Last Admin: 09/01/24 08:06 Dose: 1 patch Documented By: YAS Magnesium Hydroxide (Milk Of Magnesia 30 Ml Oral.Susp) 30 ml PO DAILY PRN PRN Reason: Constipation Melatonin (Melatonin 3 Mg Tablet) 6 mg PO BEDTIME PRN PRN Reason: Insomnia Pantoprazole Sodium (Pantoprazole Sodium 40 Mg/10 Ml Vial) 40 mg IVPUSH BID@0630,1630 [facility] Last Admin: 09/01/24 04:44 Dose: 40 mg Documented By: ELADIO Pravastatin Sodium (Pravastatin Sodium 40 Mg Tablet) 40 mg PO DAILY [facility] Last Admin: 09/01/24 08:05 Dose: 40 mg Documented By: YAS Ropinirole HCl (Ropinirole Hcl 2 Mg Tablet) 2 mg PO TID [facility] Last Admin: 09/01/24 08:06 Dose: 2 mg Documented By: YAS Sodium Chloride (0.9 % Sodium Chloride Flush 3 Ml Syringe) 3 ml IVFLUSH QSHIFT [facility] Last Admin: 09/01/24 08:06 Dose: 3 ml Documented By: YAS Labs 09/01/24 06:37 09/01/24 06:37 Labs: Laboratory Results - last 24 hr 08/31/24 08/31/24 08/31/24 13:08 13:19 13:49 MCV 70.1 L MCH 20.3 L MCHC 29.0 L RDW 19.0 H Plt Count 828 H D MPV 8.4 L Immature Gran % (Auto) 3.0 H Neut % (Auto) 77.9 H Lymph % (Auto) 10.7 L [place] % (Auto) 7.3 Eos % (Auto) 0.8 Baso % (Auto) 0.3 Lymph # (Auto) 1.6 Baldwin # (Auto) 1.1 Eos # (Auto) 0.1 Baso # (Auto) 0.0 Abs Immat Gran (auto) 0.43 H Absolute Neuts (auto) 11.3 H Absolute Nucleated RBC 0.060 H Nucleated RBC % (auto) 0.4 H Anion Gap 12 Estim Creat Clear Calc 44.8 Estimated GFR > 60 Random Glucose 103 Calcium 8.2 L D Magnesium Iron 11 L TIBC 321 % Saturation 3 L Unsat Iron Binding 310 Ferritin 7 L Total Bilirubin 0.2 Direct Bilirubin < 0.2 AST 30 ALT 23 Alkaline Phosphatase 68 B-Natriuretic Peptide 114 H Total Protein 6.3 L Albumin 3.2 L Urine Color Urine Appearance Urine pH Ur Specific [place] Urine Protein Urine Glucose (UA) Urine Ketones Urine Blood Urine Nitrite Ur Leukocyte Esterase Urine RBC Urine WBC Ur Squamous Epith Cells Urine Bacteria Hyaline Casts Stool Occult Blood Influenza Type A (PCR) NEGATIVE Influenza Type B (PCR) NEGATIVE RSV RNA Qual (PCR) NEGATIVE SARS-CoV-2 RNA (RT-PCR) NEGATIVE Blood Type A Positive Antibody Screen POSITIVE Antibody Identification Inconclusive LEWIS, Polyspecific NEGATIVE Positive LEWIS Work-up TNP Crossmatch (AHG) See Detail 08/31/24 09/01/24 13:52 06:37 MCV 75.9 L D MCH 24.6 L MCHC 32.4 RDW 19.0 H Plt Count 779 H MPV 8.6 L Immature Gran % (Auto) Neut % (Auto) Lymph % (Auto) Baldwin % (Auto) Eos % (Auto) Baso % (Auto) Lymph # (Auto) [place] # (Auto) Eos # (Auto) Baso # (Auto) Abs Immat Gran (auto) Absolute Neuts (auto) Absolute Nucleated RBC 0.160 H Nucleated RBC % (auto) 1.1 H Anion Gap 13 Estim Creat Clear Calc 60.3 Estimated GFR > 60 Random Glucose 88 Calcium 8.6 Magnesium 2.0 Iron TIBC % Saturation Unsat Iron Binding Ferritin Total Bilirubin Direct Bilirubin AST ALT Alkaline Phosphatase B-Natriuretic Peptide Total Protein Albumin Urine Color Yellow Urine Appearance Clear Urine pH 6.5 Ur Specific [place] <= 1.005 Urine Protein Negative Urine Glucose (UA) Negative Urine Ketones Negative Urine Blood Moderate (2+) H Urine Nitrite Negative Ur Leukocyte Esterase Small (1+) H Urine RBC 0-2 Urine WBC 0-5 Ur Squamous Epith Cells 0-2 Urine Bacteria Trace Hyaline Casts 0-2 Stool Occult Blood POSITIVE Influenza Type A (PCR) Influenza Type B (PCR) RSV RNA Qual (PCR) SARS-CoV-2 RNA (RT-PCR) Blood Type Antibody Screen Antibody Identification LEWIS, Polyspecific Positive LEWIS Work-up Crossmatch (AHG) Assessment and Plan (1) Upper gastrointestinal bleeding: Status: Acute Plan 79F PMH copd, duodenal AVMs, rheumatoid arthritis, htn, pseudogout, iron deficiency anemia, presented with fatigue and melena Acute on chronic iron-deficiency anemia due to acute blood loss Suspected upper GI bleed IV Protonix 3 units PRBC - hgb improved appropriately EGD today Monitor hemoglobin Rheumatoid arthritis Continue plaquenil COPD Stable DVT prophylaxis-mechanical due to GI bleed Full Code reason for continued hospitalization:egd Quality Stroke Does the patient have a stroke diagnosis?: No VTE Prior VTE?: No VTE Risk Level:: Medical - moderate - high VTE Device Contraindication: N/A - Device Ordered VTE Drug Contraindication: Treatment Not Tolerated
--- NOTE | 2024-09-01 15:19 | HO.ANESPROP2 ---
HPI - Anesthesia Eval Consult details Narrative: For EGD - for GI bleeding PMFSH Active Problems Active Problems: tAll Active Problems Upper gastrointestinal bleeding (Acute) Severe anemia (Acute) Iron deficiency anemia due to chronic blood loss (Acute) Pseudogout involving multiple joints (Acute) Wheezing (Acute) Laboratory tests ordered as part of a complete physical exam (CPE) (Acute) Smoking history (Acute) Microcytic hypochromic anemia (Acute) Abnormal lung sounds (Acute) Synovial cyst of popliteal space [Bray], right knee (Acute) Cough (Acute) Hyperlipidemia (Acute) Normal physical examination, routine (Acute) Iron deficiency anemia (Acute) Immunization counseling (Acute) Abnormal colonoscopy (Acute) Colon cancer screening (Acute) Nicotine dependence (Acute) Long-term use of hydroxychloroquine (Acute) Fatigue (Acute) Osteoporosis (Acute) 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 Family history of problems with anesthesia: No Surgical History Surgical History S/P appendectomy H/O parathyroidectomy Status post hip surgery History of Problems with Anesthesia: No Social History Social History Household Members: None Housing: Apartment Are you a primary primary health care nurse to a significant other at home: No Do you presently have visiting nurse or other home services: No Alcohol intake: never Comment: pain related to RLS, medicated with requip Patient Tobacco Use Status: Current everyday Tobacco user Tobacco use type: Cigarette Cigarettes Per Day: 10 Years Smoked: 55 e-Cigarette/Vaping Use: Currently Using Second Hand Smoke Exposure: Yes Advance Directives Date on File: 09/10/23 service: No 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 Current occupational exposures/hazards: No Cognitive needs: No Hearing needs: No Vision needs: Yes Meds Allergies Allergy/AdvReac Type Severity Reaction Status Date / Time oxycodone [From OxyContin] Allergy Mild Hives Verified 08/31/24 13:03 [place] Allergy Mild Hives & Uncoded 05/22/24 14:49 Swollen legs Active Medications: Current Medications Acetaminophen (Acetaminophen 325 Mg Tablet) 650 mg PO Q6H PRN PRN Reason: Pain, Mild 1-3,fever,headache Albuterol Sulfate (Albuterol Sulfate 90 Mcg 8 Gm Inhaler) 2 puff INHALE Q4H PRN PRN Reason: shortness of breath or wheezin Amlodipine Besylate (Amlodipine Besylate 5 Mg Tablet) 5 mg PO DAILY [facility]; Protocol Last Admin: 09/01/24 08:05 Dose: 5 mg Calcium Carbonate (Calcium Carbonate 750 Mg Tab.Chew) 750 mg PO Q4H PRN PRN Reason: Heartburn Colchicine (Colchicine 0.6 Mg Tablet) 0.6 mg PO BID [facility] Last Admin: 09/01/24 08:05 Dose: 0.6 mg Hydroxychloroquine Sulfate (Hydroxychloroquine Sulfate 200 Mg Tablet) 200 mg PO DAILY [facility] Last Admin: 09/01/24 08:05 Dose: 200 mg Lidocaine (Lidocaine 4 % Patch Adh..Patch) 1 patch TRANSDERMA DAILY [facility]; Protocol Last Admin: 09/01/24 08:06 Dose: 1 patch Magnesium Hydroxide (Milk Of Magnesia 30 Ml Oral.Susp) 30 ml PO DAILY PRN PRN Reason: Constipation Melatonin (Melatonin 3 Mg Tablet) 6 mg PO BEDTIME PRN PRN Reason: Insomnia Pantoprazole Sodium (Pantoprazole Sodium 40 Mg/10 Ml Vial) 40 mg IVPUSH BID@0630,1630 [facility] Last Admin: 09/01/24 04:44 Dose: 40 mg Pravastatin Sodium (Pravastatin Sodium 40 Mg Tablet) 40 mg PO DAILY [facility] Last Admin: 09/01/24 08:05 Dose: 40 mg Ropinirole HCl (Ropinirole Hcl 2 Mg Tablet) 2 mg PO TID [facility] Last Admin: 09/01/24 08:06 Dose: 2 mg Sodium Chloride (0.9 % Sodium Chloride Flush 3 Ml Syringe) 3 ml IVFLUSH QSHIFT [facility] Last Admin: 09/01/24 08:06 Dose: 3 ml Exam Height,Weight and Vital Signs: Height 5 ft 1 in Weight 50.6 kg Last Vital Signs Temp 99.3 F 09/01/24 14:39 Pulse 97 09/01/24 14:39 Resp 20 09/01/24 14:39 BP 146/83 H 09/01/24 14:39 Pulse Ox 94 09/01/24 14:39 O2 Del Method Room Air 09/01/24 14:39 O2 Flow Rate 2 09/01/24 07:01 Pertinent Lab Results Pertinent Lab Results: Laboratory Tests 08/31/24 08/31/24 08/31/24 13:08 13:19 13:49 WBC 14.5 H RBC 1.87 L D Hgb 3.8 L* D Hct 13.1 L* D MCV 70.1 L MCH 20.3 L MCHC 29.0 L RDW 19.0 H Plt Count 828 H D MPV 8.4 L Immature Gran % (Auto) 3.0 H Neut % (Auto) 77.9 H Lymph % (Auto) 10.7 L [place] % (Auto) 7.3 Eos % (Auto) 0.8 Baso % (Auto) 0.3 Lymph # (Auto) 1.6 Lucas # (Auto) 1.1 Eos # (Auto) 0.1 Baso # (Auto) 0.0 Abs Immat Gran (auto) 0.43 H Absolute Neuts (auto) 11.3 H Absolute Nucleated RBC 0.060 H Nucleated RBC % (auto) 0.4 H Sodium 134 L Potassium 4.2 Chloride 105 Carbon Dioxide 21 L Anion Gap 12 BUN 22 H Creatinine 0.78 Estim Creat Clear Calc 44.8 Estimated GFR > 60 Random Glucose 103 Calcium 8.2 L D Magnesium Iron 11 L TIBC 321 % Saturation 3 L Unsat Iron Binding 310 Ferritin 7 L Total Bilirubin 0.2 Direct Bilirubin < 0.2 AST 30 ALT 23 Alkaline Phosphatase 68 Troponin I High Sens 4.0 B-Natriuretic Peptide 114 H Total Protein 6.3 L Albumin 3.2 L Urine Color Urine Appearance Urine pH Ur Specific [place] Urine Protein Urine Glucose (UA) Urine Ketones Urine Blood Urine Nitrite Ur Leukocyte Esterase Urine RBC Urine WBC Ur Squamous Epith Cells Urine Bacteria Hyaline Casts Stool Occult Blood Influenza Type A (PCR) NEGATIVE Influenza Type B (PCR) NEGATIVE RSV RNA Qual (PCR) NEGATIVE SARS-CoV-2 RNA (RT-PCR) NEGATIVE Blood Type A Positive Antibody Screen POSITIVE Antibody Identification Inconclusive LEWIS, Polyspecific NEGATIVE Positive LEWIS Work-up TNP Crossmatch (AHG) See Detail 08/31/24 08/31/24 09/01/24 13:52 23:54 06:37 WBC 14.3 H RBC 3.78 L D Hgb 7.2 L D 9.3 L D Hct 22.8 L D 28.7 L D MCV 75.9 L D MCH 24.6 L MCHC 32.4 RDW 19.0 H Plt Count 779 H MPV 8.6 L Immature Gran % (Auto) Neut % (Auto) Lymph % (Auto) [place] % (Auto) Eos % (Auto) Baso % (Auto) Lymph # (Auto) [place] # (Auto) Eos # (Auto) Baso # (Auto) Abs Immat Gran (auto) Absolute Neuts (auto) Absolute Nucleated RBC 0.160 H Nucleated RBC % (auto) 1.1 H Sodium 138 Potassium 4.0 Chloride 109 H Carbon Dioxide 20 L Anion Gap 13 BUN 13 Creatinine 0.58 Estim Creat Clear Calc 60.3 Estimated GFR > 60 Random Glucose 88 Calcium 8.6 Magnesium 2.0 Iron TIBC % Saturation Unsat Iron Binding Ferritin Total Bilirubin Direct Bilirubin AST ALT Alkaline Phosphatase Troponin I High Sens B-Natriuretic Peptide Total Protein Albumin Urine Color Yellow Urine Appearance Clear Urine pH 6.5 Ur Specific [place] <= 1.005 Urine Protein Negative Urine Glucose (UA) Negative Urine Ketones Negative Urine Blood Moderate (2+) H Urine Nitrite Negative Ur Leukocyte Esterase Small (1+) H Urine RBC 0-2 Urine WBC 0-5 Ur Squamous Epith Cells 0-2 Urine Bacteria Trace Hyaline Casts 0-2 Stool Occult Blood POSITIVE Influenza Type A (PCR) Influenza Type B (PCR) RSV RNA Qual (PCR) SARS-CoV-2 RNA (RT-PCR) Blood Type Antibody Screen Antibody Identification LEWIS, Polyspecific Positive LEWIS Work-up Crossmatch (AHG) Airway Mallampati Class: II TM Dist: >3cm Neck ROM: Full Denture: Upper and Lower Loose/Missing/Broken Teeth: No Heart: ok Lungs: ok Assessment and Plan Assessment Anesthesia Assessment: Anesthesia Plan Discussed and Chart Reviewed Final Anesthetic Review Family History of Problems with Anesthesia: No History of Problems with Anesthesia: No NPO: Yes ASA Class: III Final Preanesthetic Review: No Changes in Pt Med Stat, Meds/Allgs Chart Reviewed, Consent Obtained/Reviewed and Anes Risks/Benef Reviewed Patient Risk: Intermediate Procedure Risk: Intermediate Anesthetic Plan Anesthetic Plan: Agree w/ Assess. and Plan and TIVA Disposition: Standard PACU
--- NOTE | 2024-09-01 15:52 | MHC.CM.PN ---
CM attempted to complete assessment 4 x today, pt. either asleep and not awaking to voice, or not in room.
--- NOTE | 2024-09-01 16:24 | W.PM.OPN ---
Operative Note Operative Note Date of Service: 09/01/24 Narrative: FLEXIBLE TRANSORAL UPPER GASTROINTESTINAL ENDOSCOPY WITH BIOPSIES, SUBMUCOSAL INJECTION AND ARGON PLASMA COAGULATION (APC) OF MULTIPLE SMALL BOWEL AVMS Pre-op diagnosis: UGI bleed, severe anemia Post-op diagnosis: Hiatal hernia, esophageal erosion, Gastritis, Duodenal nodule, multiple small bowel AVMs Endoscopist:? Jacob Miller MD Anesthesia:?MAC UPPER ENDOSCOPY Consent: Indications for the procedure and potential complications of bleeding, perforation, reaction to medications and missed diagnosis were discussed with the patient and informed consent was obtained. Instrument: Olympus GIF H 190 mid size upper endoscope and Olympus CF variable stiffness pediatric colonoscope Monitoring: Vital signs and clinical assessment, continuous EKG monitoring, Pulse oximetry, Carbon Dioxide monitoring and blood pressure monitoring were done throughout the procedure. Procedure: The patient was placed in the left lateral decubitis position and pre-procedure medications were administered and a bite block was placed. The endoscope was inserted into the mouth and advanced under direct vision to the third part of duodenum. The upper endoscope was removed and a pediatric colonoscope was inserted into the mouth and advanced into the proximal jejunum. A careful inspection was made as the pediatric colonoscope was withdrawn including a retroflexed examination of the proximal stomach; Findings and interventions are described below. Findings: Larynx: Normal Esophagus: GE junction at 34 cms,, hiatal hernia from 34-36 cm. A 1 cms superficial linear erosion at GE junction. Stomach: Mild gastric erythema with an erosion in the pre-pyloric area - antral biopsies were obtained to check for Helicobacter pylori. Grade 3 flap valve on retroflexed examination of the cardia. Duodenum/jejunum: Normal bulb and a 1.5 cms benign appearing nodule in the 2nd part of the duodenum (opp the major papilla) with a central orifice (likely enlarged minor papilla) - biopsies were obtained. Small amount of heme noted in the 3rd part of duodenum without any active bleeding. Multiple 5 mm to 12 mm non-bleeding AVMs in the 3rd and 4th part of the duodenum extending into the proximal jejunum. Approx 15 AVMs were ablated with APC. A tattoo was placed at the most distal extent reached by the colonoscope Intervention: Biopsies and APC of multiple small bowel AVMs as noted above Impression and Post Procedure Diagnosis: Endoscopy Findings: ESOPHAGUS: Small hiatal hernia, 1 cm superficial erosion STOMACH: Gastritis with pre-pyloric erosion DUODENUM/JEJUNUM: A 1.5 cms benign appearing nodule in the 2nd part of the duodenum (opp the major papilla) with a central orifice (likely enlarged minor papilla). Multiple 5 mm to 12 mm non-bleeding AVMs in the 3rd and 4th part of the duodenum extending into the proximal jejunum. Approx 15 AVMs were ablated with APC. GI bleeding and anemia likely from intermittent bleeding from small bowel AVMs - ablated with APC Plan: 1. Start a regular diet. 2. Pt can be discharged home on oral iron replacement in the am if repeat CBC is stable. 3. Monitor CBC monthly for the next 4-6 months. 4. If pt has recurrent anemia, she may need an antegrade single or double balloon small bowel enteroscopy for ablation of additional small bowel AVMs distal to the reach of the pediatric colonoscope. Above findings were reviewed with the patient. BIOPSIES SHOWED: A. Duodenum, nodule, biopsy: Chronic inactive duodenitis. B. Stomach, antrum, biopsy: Antral-type mucosa with mild chronic inactive inflammation, regenerative changes and intestinal metaplasia; negative for dysplasia; no Helicobacter organisms seen.
[2024-09-01] MEDS: Acetaminophen 325 MG TABLET 650 MG PO (22:43)
[2024-09-02 03:20] VITALS: BP 170/77; PULSE 92; RESP 18; TEMP 36.6; O2SAT 98
[2024-09-02] MEDS: Acetaminophen 325 MG TABLET 650 MG PO (04:43)
[2024-09-02] MEDS: Pantoprazole Sodium 40 MG/10 ML VIAL IVPUSH (05:52)
[2024-09-02 07:08] LABS: Anion Gap 15 (12-20); Blood Urea Nitrogen 12 mg/dL (9-16); Calcium 8.2 mg/dL (8.4-10.2); Carbon Dioxide 18 mmol/L (22-29); Chloride 107 mmol/L (96-108); Creatinine Clr Calc Pharmacy 55.5; Estimated Glomerular Filt Rate > 60; Glucose Random 78 mg/dL (60-115); Potassium 3.5 mmol/L (3.3-5.1); Sodium 136 mmol/L (135-145)
[2024-09-02 07:17] LABS: Hematocrit 27.5 % (37.0-47.0); Hemoglobin 9.1 g/dl (12.0-16.0); Mean Corpuscular HGB Conc 33.1 g/dl (31.0-35.0); Mean Corpuscular Hemoglobin 24.9 pg (27.0-33.0); Mean Corpuscular Volume 75.1 fL (80.0-98.0); Mean Platelet Volume 8.5 fL (9.4-12.3); Platelet Count 721 X10*3/uL (160-400); Red Blood Count 3.66 X10*6/uL (4.20-5.50); White Blood Count 13.2 X10*3/uL (4.8-10.8)
[2024-09-02 07:25] VITALS: BP 138/68; PULSE 100; RESP 18; TEMP 36.9; O2SAT 96
[2024-09-02] MEDS: Hydroxychloroquine Sulfate 200 MG TABLET PO (07:54)
[2024-09-02] MEDS: Colchicine 0.6 MG TABLET PO (07:54)
[2024-09-02] MEDS: Pravastatin Sodium 40 MG TABLET PO (07:54)
[2024-09-02] MEDS: rOPINIRole HCL 2 MG TABLET PO (07:54)
[2024-09-02] MEDS: amLODIPine Besylate 5 MG TABLET PO (07:54)
[2024-09-02] MEDS: Lidocaine 4 % Patch ADH..PATCH 1 PATCH TRANSDERMA (07:55)
[2024-09-02] MEDS: 0.9 % Sodium Chloride Flush 3 ML SYRINGE IVFLUSH (07:56)
--- NOTE | 2024-09-02 10:19 | HO.POSTANES ---
Post Anesthesia Evaluation Post Anesthesia Evaluation Date of Service: 09/02/24 Vital Signs: Vital Signs Temp Pulse Resp BP Pulse Ox O2 Del Method 09/02/24 07:25 98.4 F 100 18 138/68 96 Room Air 09/02/24 03:20 97.8 F 92 18 170/77 H 98 Room Air 09/01/24 23:43 96.8 F 94 18 166/71 H 98 Room Air Anesthesia: Monitored Mental Status: Awake Pain Control: Satisfactory Nausea/Vomiting: None Hydration: Adequate Anesthesia-Related Issues: No Anes. Related Issues
[2024-09-02 11:24] VITALS: BP 131/69; PULSE 90; RESP 20; TEMP 37; O2SAT 93
--- NOTE | 2024-09-02 13:05 | PM.DS ---
DS: Providers Provider Date of Service: 09/02/24 Date of admission: 08/31/24 16:44 Date of discharge: 09/02/24 Primary care physician: Burke Vazquez PA-C Consults: 08/31/24 16:44 Consult to Gastroenterology Routine Consulting Provider: Jacob Miller Reason for consultation: melena, anemia DS: Diagnosis Discharge Diagnosis (1) Upper gastrointestinal bleeding: Status: Acute DS: Summary Hospital Course Hospital Course: from initial hpi: 79F PMH copd, duodenal AVMs, rheumatoid arthritis, htn, pseudogout, iron deficiency anemia, presented with fatigue and melena. patient states symptoms began 1 week prior to presentation. Has been having progressive fatigue and melanotic stools. Was so severe on day of presentation that she called the ambulance. Denies any NSAID use but is on chronic steroids for rheumatoid arthritis. Has had GI bleed in the past and was diagnosed with duodenal AVMs in 2021. She does not take antiplatelets, anticoagulation. In ED hemoglobin noted to be 3.8, 3 units of PRBC ordered. hospital course: Patient was admitted for acute on chronic iron-deficiency anemia due to acute blood loss. Was treated with IV PPI given 3 units of PRBC and hemoglobin improved appropriately and remained stable. Underwent EGD which revealed nonbleeding duodenal AVMs which were APC'ed. Had no obvious bleeding. We will be discharged home and should follow up with GI for biopsy results. If rebleeds may need small bowel enteroscopy. We will continue on p.o. iron on discharge. For rheumatoid arthritis was continued on Plaquenil. For COPD remained stable. Patient is feeling better will be discharged home. Time Attestation Discharge Coordination Time (in mins): 32 Quality: Safe Use of Opioids Does Pt have an Active Cancer Diagnosis on the Problem List?: No Quality: Stroke Does the patient have a stroke diagnosis?: No Physical Exam Vital Signs: Vital Signs: Last Vital Signs Temp 98.6 F 09/02/24 11:24 Pulse 90 09/02/24 11:24 Resp 20 09/02/24 11:24 BP 131/69 09/02/24 11:24 Pulse Ox 93 09/02/24 11:24 O2 Del Method Room Air 09/02/24 11:24 O2 Flow Rate 2 09/01/24 07:01 BMI result Body Mass Index 21.1 General: AO X 3, no acute distress Resp: CTA bilateral, no accessory muscles used CVS: S1,S2,RRR GI: soft, non tender, non distended Neuro: motor grossly intact, alert Psych: appropriate affect, appropriate insight DS: Data Data Completed and Pending Completed studies during hospitalization [Text1]: Procedures Transfusion of Nonautologous Red Blood Cells into Peripheral Vein, Percutaneous Approach (03/23/22) Pending studies at discharge: Pending at discharge 09/01/24 15:50 Surgical [PTH] Routine Labs on day of discharge: Laboratory Results - last 24 hr 09/02/24 06:05 WBC 13.2 H RBC 3.66 L Hgb 9.1 L Hct 27.5 L MCV 75.1 L MCH 24.9 L MCHC 33.1 RDW 20.0 H Plt Count 721 H MPV 8.5 L Absolute Nucleated RBC 0.000 Nucleated RBC % (auto) 0.0 Sodium 136 Potassium 3.5 Chloride 107 Carbon Dioxide 18 L Anion Gap 15 BUN 12 Creatinine 0.63 Estim Creat Clear Calc 55.5 Estimated GFR > 60 Random Glucose 78 Calcium 8.2 L Discharge Plan Discharge Anticipated Discharge Date/Time: 09/02/24 13:03 Patient Disposition: Home, Self-Care Discharge Diagnosis: anemia Referrals: Burke Vazquez PA-C [Primary Care Provider] - 1 Week Discharge Medications: Continued pravastatin 40 mg tablet 40 mg PO DAILY 90 Days Qty: 90 0RF ropinirole 1 mg tablet 2 mg PO TID Qty: 90 1RF cetirizine [Zyrtec] 10 mg tablet 10 mg PO DAILY 30 Days Qty: 30 0RF acetaminophen 325 mg tablet 650 mg PO Q6H PRN (Reason: pain) Qty: 60 1RF hydroxychloroquine 200 mg tablet 200 mg PO DAILY Qty: 90 1RF colchicine 0.6 mg tablet 0.6 mg PO BID Qty: 60 4RF Rx Instructions: Start taking after completing the prednisone taper albuterol sulfate 90 mcg/actuation HFA aerosol inhaler 2 puff inhalation Q4-6H PRN (Reason: shortness of breath or wheezing) 30 Days Qty: 8.5 4RF amlodipine 5 mg tablet 5 mg PO DAILY 30 Days Qty: 30 3RF folic acid 1 mg tablet 1 mg PO DAILY Qty: 90 3RF cyanocobalamin (vitamin B-12) 1,000 mcg lozenge 1,000 mcg SUBLINGUAL DAILY Qty: 90 4RF omeprazole 20 mg capsule,delayed release(DR/EC) 20 mg PO DAILY Qty: 30 3RF ferrous sulfate [Feosol] 325 mg (65 mg iron) tablet 325 mg PO BID 30 Days Qty: 60 2RF (DME) blood pressure monitor Kit See Rx Instructions .Route Qty: 1 0RF Rx Instructions: check bp twice a week and when not feeling well Discharge Orders: Discharge Order (Routine); Ordered 09/02/24 Ordered By: Ant [place] Diet: Advance to usual diet Activity on Discharge: As tolerated Stand Alone Forms: Patient Portal Discharge page Print Language: Solomon Islander Care Plan Goals: recovery Health Concerns: gi bleed Plan of Treatment: ppi, iron, if rebleeds may need enteroscopy Assessment: see above
--- NOTE | 2024-09-02 13:43 | MHC.CM.PN ---
PT REPORTS SHE LIVES ALONE AND IS INDEPENDENT WITH CARE SHE HAS NO DME AND NO SERVICES HCP ON FILE PCP: ARMANDO WOO IMM DELIVERED PT WILL DC HOME TODAY VIA [facility]
== END 2024-09-02 14:33 | disposition home or self-care (01) | DRG 378 ==
LOC: HO.ED 14:10 → HO.EDOVER 16:56 → HO.IMC 19:07
PROVIDERS: Admitting Provider Internal Medicine Gastroenterology; Emergency Provider Emergency Medicine; PCP Physician Assistant; Visit Provider Internal Medicine
PROC: 0DJ08ZZ Inspection of Upper Intestinal Tract, Via Natural or Artificial Opening Endoscopic (ICD-10-PCS; CPT 43235; principal; 2024-09-01 15:30)
DX: K55.21 Angiodysplasia of colon with hemorrhage (principal); D62 Acute posthemorrhagic anemia; F17.210 Nicotine dependence, cigarettes, uncomplicated; M06.9 Rheumatoid arthritis, unspecified; J44.9 Chronic obstructive pulmonary disease, unspecified; Z71.6 Tobacco abuse counseling; Z20.822 Contact with and (suspected) exposure to COVID-19; Z79.899 Other long term (current) drug therapy
CPT/HCPCS: 43270; 43239; 43236; 0241U; 36415; 71045; 80048; 80076; 81001; 82272; 82728; 83540; 83735; 83880; 84484; 85014; 85018; 85025; 85027; 86850; 86870; 86880; 86900; 86901; 86920; 86922; 87086; 88305; 88313; 88342; 93005; 99222; 99285; J2003; J2470; J2704; J3010; P9016

== ENCOUNTER → 2024-08-31 13:04 | Outpatient (BNV) | payer OTHER, SELFPAY | PROVIDERS: Emergency Provider Emergency Medicine; PCP Physician Assistant; Visit Provider Internal Medicine | DX: R00.0 Tachycardia, unspecified (principal) | CPT/HCPCS: 93010 ==

== ENCOUNTER → 2024-08-31 13:04 | Outpatient (BNV) | payer OTHER, SELFPAY | PROVIDERS: Emergency Provider Emergency Medicine; Visit Provider Radiology Diagnostic Radiology | DX: R06.02 Shortness of breath (principal); R05.9 Cough, unspecified | CPT/HCPCS: 71045 ==

== ENCOUNTER → 2024-08-31 16:44 | Outpatient (BNV) | payer OTHER, SELFPAY | PROVIDERS: Admitting Provider Internal Medicine; Emergency Provider Emergency Medicine; PCP Physician Assistant; Visit Provider Internal Medicine Gastroenterology | DX: D50.0 Iron deficiency anemia secondary to blood loss (chronic) (principal); K92.2 Gastrointestinal hemorrhage, unspecified | CPT/HCPCS: 99222 ==

== ENCOUNTER → 2024-08-31 16:44 | Outpatient (BNV) | payer OTHER, SELFPAY | PROVIDERS: Admitting Provider Internal Medicine; Emergency Provider Emergency Medicine; PCP Physician Assistant; Visit Provider Internal Medicine | DX: D50.0 Iron deficiency anemia secondary to blood loss (chronic) (principal) | CPT/HCPCS: 99223 ==

== ENCOUNTER 2024-09-11 09:52 | Outpatient (REF) | payer MEDICARE, SELFPAY ==
[2024-09-11 10:24] LABS: MANUAL DIFF FLAG NO
[2024-09-11 10:55] LABS: Basophils Absolute Auto 0.1 X10*3/uL (0.0-0.2); Basophils Percent Auto 0.7 % (0-2); Eosinophils Absolute Auto 0.1 X10*3/uL (0.0-0.4); Eosinophils Percent Auto 1.1 % (0-4); Hematocrit 31.8 % (37.0-47.0); Hemoglobin 9.5 g/dl (12.0-16.0); Imm Gran Abs Auto 0.03 X10*3/uL (0.00-0.03); Imm Gran Pct Auto 0.4 % (0.0-0.4); Lymphocytes Absolute Auto 1.1 X10*3/uL (1.2-4.9); Lymphocytes Percent Auto 15.3 % (20-40); Mean Corpuscular HGB Conc 29.9 g/dl (31.0-35.0); Mean Corpuscular Hemoglobin 23.8 pg (27.0-33.0); Mean Corpuscular Volume 79.5 fL (80.0-98.0); Monocytes Absolute Auto 0.6 X10*3/uL (0.1-1.2); Monocytes Percent Auto 7.8 % (2-11); Neutrophils Absolute Auto 5.3 x10*3/uL (2.0-8.3); Neutrophils Percent Auto 74.7 % (45-73); Platelet Count 682 X10*3/uL (160-400); Red Cell Distribution Width 22.1 % (11.0-16.0); White Blood Count 7.1 X10*3/uL (4.8-10.8)
--- OUTSIDE RECORDS SUMMARY | 2024-09-11 10:59 | XMS_ITS | Clinical Summary ---
Author Organization [facility] Address [address] [place] [address] Care Team Providers Care Animal Rescuer Name Role Phone Community, Pcp Primary Care Provider Unavailabl e Allergies Active Allergy Reactions Severity Noted Date Comments Oxycodone Flushing, feeling of warmth,Itching/Pruritus 11/15/2013 Pramipexole 06/13/2018 Medications Medication Sig Dispensed Refills Start Date End Date Status vitamin B-12 (CYANOCOBALAMIN) 1000 MCG tablet Take 1,000 mcg by mouth daily. 0 Active Diclofenac Sodium 1 % Gel Apply 2 g of 1% gel to affected area 4 times daily (maximum: 8 g per joint per day) 100 g 2 05/17/2019 Active pravastatin (PRAVACHOL) 40 MG tablet Take 1 Tab by mouth at bedtime. 90 Tab 1 11/21/2019 Active omeprazole (PRILOSEC) 20 MG capsule Take 1 Cap by mouth daily. 90 Cap 1 11/21/2019 Active amlodipine (NORVASC) 2.5 MG tablet TAKE 1 TABLET BY MOUTH EVERY DAY 30 Tab 0 06/14/2020 Active folic acid (FOLVITE) 1 MG tabletIndications:Se ropositive rheumatoid arthritis of multiple joints (HCC) Take 1 tablet by mouth daily. 30 tablet 5 12/30/2020 Active methotrexate 2.5 MG tablet TAKE 4 TABLETS BY MOUTH ONCE A WEEK 16 tablet 4 03/27/2021 Active ropinirole (REQUIP) 1 MG tablet Take 2 tabs in am and 2 tabs at 5pm and 2 tabs at bedtime 120 tablet 4 03/27/2021 Active Active Problems Problem Noted Date Diverticulosis of colon 08/07/2019 H/O endoscopy 06/20/2019 Overview: Capsule endoscopy-small bowel angiectasia. Seen by Dr. Yadira Henry August 2018- less benefit of any procedures with regard to small bowel angiectasia-like balloon dilatation. diverticulosis is moderate severity on colonoscopy Lung nodule 05/09/2019 Overview: 04/27- LDCT screening, 5mm groundglass nodule Seropositive rheumatoid arthritis of mul tiple joints 03/27/2019 Overview: 03/27- restarted methotrexate Vitamin D deficiency 03/02/2019 Hypercalcemia 03/02/2019 Overview: On initial visit with vitamin D deficiency, will need to repeat calcium level with repeat vitamin D levels in the future. 03/28-persistently elevated, referred to endocrinology, PTH upper limit of normal, consistent with primary hyperparathyroidism. Treat with Fosamax for osteoporosis. History of gastritis 06/17/2018 Overview: hx erosive gastritis with hemorrhage. Colon polyp 06/17/2018 Osteoporosis 06/17/2018 Hypercholesterolemia 06/17/2018 Vitamin B 12 deficiency 06/17/2018 GERD (gastroesophageal reflux disease) 0 06/17/2018 CAD (coronary artery disease) 06/17/2018 Tobacco use 06/17/2018 Thrombocytosis 06/13/2018 Iron deficiency anemia due to chronic bl ood loss 06/13/2018 Weight loss 06/13/2018 Hypertension 11/15/2013 Restless leg syndrome 11/15/2013 Resolved Problems Problem Noted Date Resolved Date Bereavement 06/13/2018 08/07/2019 Immunizations Name Administration Dates Next Due COVID-19 (Pfizer) Pt Reported 02/21/2021, 021,07/07/2020 Influenza Flu (PT Reported) 01/22/2021, 0 Influenza Vaccine-preservati ve Free-quadrivalent 4 Years 02/22/2019 Influenza vaccine high dose age 65 and over 03/10,02/27/2015 Pneumococcal Conjugate PCV-13 03/25/2016 Family History Medical History Relation Name Comments CA Breast Negative Hx CA Colon Negative Hx CA Ovarian Negative Hx Social History Tobacco Use Types Packs/Day Years Used Date Smoking Tobacco: Some Days Cigarettes 0.5 54 Smokeless Tobacco: Never Tobacco Cessation:Ready to Q uit: No Comments:patch Alcohol Use Standard Drinks/Week Comments No 0 (1 standard drink = 0.6 oz pur e alcohol) Sex Assigned at Date Recorded Not on file Job Start Date Occupation Industry Not on file Not on file Not on file Last Filed Vital Signs Vital Sign Reading Time Taken Comments Blood Pressure 104/80 03/27/2021 8:52 AM EST Pulse 84 03/27/2021 8:52 AM EST Temperature 37.1 ??C (98.8 ??F) 03/27/2019 2:19 PM ES T Respiratory Rate 14 03/27/2021 8:52 AM EST Oxygen Saturation 95% 07/05/2019 9:09 AM EST Inhaled Oxygen Concentration - - Weight 58.1 kg (128 lb) 03/27/2021 8:52 AM EST Height 153 cm (5' 0.25 ) 03/27/2021 8:52 AM EST Body Mass Index 24.79 03/27/2021 8:52 AM EST Plan of Treatment Health Maintenance Due Date Last Done Comments DEPRESSION SCREEN 1958 DTAP/TDAP/TD (1 - Tdap) 1965 MAMMOGRAM 1986 SHINGLES VACCINE (1 of 2) 02/10/1996 FALL RISK ASSESSMENT 2011 BONE DENSITY SCREENING 04/13/2021 04/13/2019 Covid-19 Vaccine (2022-06 4 season) 2024 02/21/2021, 07/28/2020, 07/07/2020 CHOLESTEROL SCREENING 02/23/2024 02/22/2019 INFLUENZA (Season Ended) 2025 021, 02/14/2020 (External Completion of Vaccination per patient), 02/14/2020, Additional history exists HEPATITIS C SCREENING Completed 03/27/2019 PNEUMOCOCCAL VACCINE Completed 10/22/2020, 03/25/2016 (External Completion of Vaccination per patient), 03/25/2016 Care Teams Animal Rescuer Relationship Specialty Start Date End Date Community, Pcp PCP - General Internal Medicine 03/21/21
--- OUTSIDE RECORDS SUMMARY | 2024-09-11 10:59 | XMS_ITS | Encounter Summary ---
Author Organization [employer] [facility] Address [address] [place] [address] Care Team Providers Care Corporate Traffic Manager Name Role Phone John Diamond MD Primary Care Provide r Unavailable Jennifer Bhagat MD Primary Care Provider Unavailabl e [facility], Pcp Primary Care Provider Unavailabl e Encounter Details Date Type Department Care Team Description 05/17/2019 Release of Information Medical Records [address] [place] [address] Abstract, Provider Social History Tobacco Use Types [...] on filedocumented in this encounter Care Teams Corporate Traffic Manager Relationship Specialty Start Date End Date John Diamond MD PCP - General Internal Medicine 01/03/19 Jennifer Bhagat MD PCP - General Anesthesiology 10/31/20 10/31/20 Community, Pcp PCP - General Internal Medicine 03/21/21 documented as of this encounter
--- OUTSIDE RECORDS SUMMARY | 2024-09-11 10:59 | XMS_ITS | Encounter Summary ---
Author Organization [facility] Address [address] [place] [address] Care Team Providers Care Group Marketing Vp Name Role Phone John Diamond MD Primary Care Provide r Unavailable Jennifer Bhagat MD Primary Care Provider Unavailabl e [facility], Pcp Primary Care Provider Unavailabl e Reason for Visit * Reason Comments E-prescribe Rx Request Encounter Details Date Type Department Care Team Description 07/16/2020 Refill Adult Medicine [address] [address] John Diamond MD E-prescribe Rx Request Social History Tobacco Use Types Packs/Day Years [...] have Coronavirus / COVID-19? No / Unsure 07/03/2020 10:36 AM EST documented as of this encounter Miscellaneous Notes * Telephone Encounter - Leslie Vega M.A. - 07/16/2020 3:14 PM EST Needs appt aby * Telephone Encounter - Nicky Graham - 07/16/2020 11:47 AM EST Patient would like script to be: E-PRESCRIBED/FAXED TO PHARMACY WHEN WAS THE PATIENT'S LAST APPOINTMENT IN ADULT MEDICINE? 02/07/20 WHEN WAS THE LAST TIME THE PATIENT SAW THEIR PCP? Does patient have an upcoming appointment? No-unable to reach left voicemaill to call for appointment due to refill request. Appt due (THE MEDICATION REQUESTED IS ON THE MED LIST ABOVE) All of the medications requested were on the CURRENT MEDS list Did you check the Pharmacy information above?: YES Patient wants: 30 -day supply Is this a mail order prescription request ? NO If the refill is from a FAXED refill request what is the RX # listed on the fax? N/A Patients current insurance carrier is: [place] / [place] / Product Type: MEDICARE [id number] documented in this encounter Plan of Treatment Not on file documented as of this encounter Visit Diagnoses Not on filedocumented in this encounter Care Teams Group Marketing Vp Relationship Specialty Start Date End Date John Diamond MD PCP - General Internal Medicine 01/03/19 Jennifer Bhagat MD PCP - General Anesthesiology 10/31/20 10/31/20 [facility], [place] PCP - General Internal Medicine 03/21/21 documented as of this encounter
--- OUTSIDE RECORDS SUMMARY | 2024-09-11 10:59 | XMS_ITS | Encounter Summary ---
Author Organization [employer] [facility] Address [address] [place] [address] Care Team Providers Care Material Control Manager Name Role Phone John Diamond MD Primary Care Provide r Unavailable Jennifer Bhagat MD Primary Care Provider Unavailabl e [facility], Pcp Primary Care Provider Unavailabl e Encounter Details Date Type Department Care Team Description 06/09/2019 [facility] Medical Records [address] [place] [id number] Richi Segundo MD Social History Tobacco Use Types Packs/Day [...] filedocumented in this encounter Care Teams Material Control Manager Relationship Specialty Start Date End Date John Diamond MD PCP - General Internal Medicine 01/03/19 Jennifer Bhagat MD PCP - General Anesthesiology 10/31/20 10/31/20 Community, Pcp PCP - General Internal Medicine 03/21/21 documented as of this encounter
--- OUTSIDE RECORDS SUMMARY | 2024-09-11 10:59 | XMS_ITS | Encounter Summary ---
Author Organization [facility] Address [address] [place] [address] Care Team Providers Care Senior Hadoop Developer Name Role Phone John Diamond MD Primary Care Provide r Jennifer Winchester MD Primary Care Provider Unavailabl e [facility], Pcp Primary Care Provider Unavailabl e Reason for Visit * Reason Onset Date Comments hospital follow up 06/09/2019 Encounter Details Date Type Department Care Team Description 06/09/2019 Telephone Adult Medicine - [address] [address] John Diamond MD hospital follow up Social [...] appointment needed Hospital patient was treated at: [facility] Was this only an ER visit or [...] on filedocumented in this encounter Care Teams Senior Hadoop Developer Relationship Specialty Start Date End Date John Diamond MD PCP - General Internal Medicine 01/03/19 Jennifer Bhagat MD PCP - General Anesthesiology 10/31/20 10/31/20 [facility], Pcp PCP - General Internal Medicine 03/21/21 documented as of this encounter
--- OUTSIDE RECORDS SUMMARY | 2024-09-11 10:59 | XMS_ITS | Encounter Summary ---
Author Organization [facility] Address [address] [place] [address] Care Team Providers Care Clinical Nurse Specialist Name Role Phone John Diamond MD Primary Care Provide r Unavailable Jennifer Bhagat MD Primary Care Provider Unavailabl e [facility], Pcp Primary Care Provider Unavailabl e Encounter Details Date Type Department Care Team Description 07/19/2019 [facility] Medical Records [address] [place] [id number] Inga Barber PA Social History Tobacco Use [...] on filedocumented in this encounter Care Teams Clinical Nurse Specialist Relationship Specialty Start Date End Date John Diamond MD PCP - General Internal Medicine 01/03/19 Jennifer Bhagat MD PCP - General Anesthesiology 10/31/20 10/31/20 Community, Pcp PCP - General Internal Medicine 03/21/21 documented as of this encounter
--- OUTSIDE RECORDS SUMMARY | 2024-09-11 10:59 | XMS_ITS | Encounter Summary ---
Author Organization [employer] [facility] Address [address] [place] [address] Care Team Providers Care Beam Carrier Hauler Pusher Name Role Phone John Diamond MD Primary Care Provide r Unavailable Jennifer Bhagat MD Primary Care Provider Unavailabl e [facility], Pcp Primary Care Provider Unavailabl e Encounter Details Date Type Department Care Team Description 07/06/2019 Orders Only Rheumatology - [address] [address] Bradford Bales PA Social History Tobacco Use [...] on filedocumented in this encounter Care Teams Beam Carrier Hauler Pusher Relationship Specialty Start Date End Date John Diamond MD PCP - General Internal Medicine 01/03/19 Jennifer Bhagat MD PCP - General Anesthesiology 10/31/20 10/31/20 Community, Pcp PCP - General Internal Medicine 03/21/21 documented as of this encounter
--- OUTSIDE RECORDS SUMMARY | 2024-09-11 11:00 | XMS_ITS | Encounter Summary ---
Author Organization [facility] Address [address] [place] [address] Care Team Providers Care Correspondence Transcriber Name Role Phone John Diamond MD Primary Care Provide r Unavailable Jennifer Bhagat MD Primary Care Provider Unavailabl e [facility], Pcp Primary Care Provider Unavailabl e Reason for Visit * Reason Comments E-prescribe Rx Request Encounter Details Date Type Department Care Team Description 04/21/2019 Refill Adult Medicine [address] [address] Rose Marmolejo MD E-prescribe Rx Request Social History Tobacco [...] encounter Miscellaneous Notes * Telephone Encounter - John Diamond MD - 04/23/2019 11:22 AM EST She is seeing me in June. I ordered repeat vitamin D, she can do the blood work 3 to 4 days prior to next appointment with me. I will discuss the results with her. She does not need 50,000 units if she completed 8 weeks of it. She can continue with 1000 units [id number] vitamin D. * Telephone Encounter - Devika Dudley PA-C - 04/21/2019 12:29 PM EST To refill pool- Should not be continuously on high dose vit D, can start vit D [address] Diamond- vit D recheck not ordered yet, will leave to your discretion * Telephone Encounter - Verónica Urias - 04/21/2019 7:09 AM EST Patient would like script to be: E-PRESCRIBED/FAXED TO PHARMACY WHEN WAS THE PATIENT'S LAST APPOINTMENT IN ADULT MEDICINE? 03/30/19 WHEN WAS THE LAST TIME THE PATIENT SAW THEIR PCP? Same as above Does patient have an upcoming appointment? Yes 07/05/19 (THE MEDICATION REQUESTED IS ON THE MED [...] N/A Patients current insurance carrier is: Payor: [facility] / Plan: [place] [employer] HMO [facility] / Product Type: MEDICARE RISK documented in this encounter Plan of Treatment Not on file documented as of this encounter Results * 25 HYDROXY INCLUDES FRACTIONS IF PERFORMED (05/18/2019 9:40 AM EST) VITAMIN D, 25-HYDROXY 35 30 - 80 ng/mL 05/18/2019 3:18 PM EST [facility] 05/18/2019 9:40 AM EST 05/18/2019 9:40 AM EST John Diamond MD LAB Performing Organization Address City/State/[facility] Co de Phone Number [facility] Vast documented in this encounter Visit Diagnoses Diagnosis Vitamin D deficiency- Primary Unspecified vitamin D deficiency documented in this encounter Care Teams Correspondence Transcriber Relationship Specialty Start Date End Date John Diamond MD PCP - General Internal Medicine 01/03/19 Jennifer Bhagat MD PCP - General Anesthesiology 10/31/20 10/31/20 [facility], Pcp PCP - General Internal Medicine 03/21/21 documented as of this encounter
--- OUTSIDE RECORDS SUMMARY | 2024-09-11 11:00 | XMS_ITS | Data Portability ---
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 She is seeing Dr. Arora at the end of February. [email or web address] Not available 11/16/2016 14:20:50 12/23/2016 12/23/2016 F/u next month for general f/u, PFTs, and f/u from 11/16/16 visit. [email or web address] Not available 12/26/2016 10:34:13 01/01/2017 01/01/2017 5 pm on Wednesday, sending to ER (she refuses to go here, going to [place]) need to r/o PE/DVT w/hx of RA/PsA, recent PNA/rib fx's with intermittent shortness of breath and acute onset of LLE swelling and pain. [email or web address] Not available 01/01/2017 16:53:52 Plan of Treatment Reminders Order Date Submit Date Provider Last Modified By Organization Details Last Modified Time Details Appointments None recorded. Lab BMP, serum or plasma [address], [address] [place], [address], 8 15:20:38 vitamin D, 25-hydroxy , total, serum [address], 19 [place], [address], 8 15:20:38 CBC [address], [address] [facility] [place], [address], 8 15:20:38 iron + total iron-parish ng capacity (TIBC), serum [address], [address] [facility] [place], [address], 8 15:20:38 vitamin B12, serum [address], [address] [facility] [place], [address], 8 15:20:38 PTH (parathyro id hormone), intact, serum or plasma [address], [address] [facility] [place], [address], 7 09:30:14 vitamin D, 25-hydroxy , total, serum [address], [address] [facility] [place], [address], 7 09:30:14 vitamin B12, serum [address], [address] [facility] [place], [address], 8 11:04:06 PTH (parathyro id hormone), intact, serum or plasma 2016 017 [facility] [address] [facility] [address], 7 14:32:23 magnesium, serum or plasma 2016 017 [facility] [address] [facility] [place], [address], 7 14:42:40 lipid panel, serum 2016 017 [facility] [address] [place], [address], 7 14:42:41 vitamin D, 25-hydroxy , total, serum 2016 017 [facility] [address] [place], [address], 7 14:42:45 CMP, serum or plasma 2016 017 [facility] [address] [place], [address], 7 14:42:38 vitamin B12, serum 2016 017 [facility] [address] [place], [address], 7 14:42:44 CBC 2016 017 [facility] [address] [place], [address], 7 13:27:32 iron + total iron-parish ng capacity (TIBC), serum 2016 017 [facility] [address] [place], [address], 7 13:36:43 CBC 2016 017 [facility] [address] [place], [address], 7 13:08:14 iron + total iron-parish ng capacity (TIBC), serum 2016 017 [facility] [address] [place], [address], 7 14:42:42 Referral endocrinol ogy referral - [place] office Please [address] -Endocrinolog y, [address], [place], [address], 8 13:57:18 Procedures None recorded. Surgeries None recorded. Imaging CT, chest, w/o contrast - f/u previous abnormalit ies [address] (Central Scheduling), [address] [place], [address], 7 20:03:06 US, echocardio gram 2016 017 [facility] (Central Scheduling), [address] [facility], [place], [address], 7 14:42:58 Medication Orders cyanocobal haney (vit B-12) 1,000 mcg tablet 2016 017 [facility], [address] [place], [address], 7 09:54:27 pramipexol e 0.125 mg tablet [address] [facility] [address] [place], [address], 7 19:33:09 Sarna Original 0.5 %-0.5 % lotion 2016 017 [facility], [address] [place], [address], 7 18:03:30 albuterol sulfate HFA 90 mcg/actuat ion aerosol inhaler 2016 017 [facility]FACE [facility], [address] [facility], [place], [address], 7 09:11:34 Fosamax 70 mg tablet 2016 017 [facility], [address] [place] [address], [id number], 7 08:53:21 omeprazole 20 mg capsule,de layed release 2016 017 INTERFACE [facility], [facility] [address], [place] [address], [place], [place], [id number], 7 10:10:07 Patient TargetsNo targets recorded. Patient Instructions Encounter Date Encounter Id Patient Instructions Last Modified By Organization Details Last Modified Time 02/04/2017 [id number] spirometry testing* ADAM Not available 02/05/2017 09:22:28 04/21/2017 [id number] heart-healthy diet: care instructions Not available 04/24/2017 11:28:03 A healthy heart: care instructions [email or web address] Not available 04/24/2017 11:28:03 preventing falls : care instructions [email or web address] Not available 04/24/2017 11:28:03 A healthy lifestyle: care instructions Not available 04/24/2017 11:28:03 Reason for Referral [facility] Referring Physician: Maddison Ta, Family Medicine, Encounter Date: 04/21/2017 Results Created Date Observation Date Name Description Value Unit Range Abnormal Flag Note LastModifiedBy Organization Detail LastModifiedTime 02/05/20 17 02/05/2017 tomeka metry testi ng* Spirometry Not Available In-Offi ce Order Internal Use Only DO Not Attach Compendium DO Not Attach Compendium, Do Not Delete/merge, [id number] 02/04/2017 16:21:40 11/10/19 17 11/09/2016 iron + total iron- parish ng capac ity (TIBC ), serum iron 53 ug/dL 40-175 normal Not Available [address] [place] [address], [address], 11/09/2016 16:45:41 11/10/19 17 11/09/2016 iron + total iron- parish ng capac ity (TIBC ), serum transferrin 278 mg/dL 200-36 0 normal Effec tive 5: Pleas e note the refer ence range for this test has duarte ed. Not Available [address] [place] [address], [address], 11/09/2016 16:45:41 11/10/19 17 11/09/2016 iron + total iron- parish ng capac ity (TIBC ), serum iron binding 363 ug/dL 250-40 0 normal Not Available [address] [place] [address], [address], 11/09/2016 16:45:41 11/10/19 17 11/09/2016 iron + total iron- parish ng capac ity (TIBC ), serum iron saturation 15 % 16-55 low Not Available [address] [place] [address], [address], 11/09/2016 16:45:41 11/10/19 17 11/09/2016 iron + total iron- parish ng capac ity (TIBC ), serum ferritin 26 NG/mL 8-252 normal Peyton tin value s are age depen dent and can vary depen ding on menop ausal statu s. Not Available [address] [place] [address], 15[address], 11/09/2016 16:45:41 11/10/19 17 11/09/2016 CBC WBC count 4.62 K/mm3 4.0-11 .0 normal Not Available [address] [place] [address], 82925, 11/09/2016 19:09:35 11/10/19 17 11/09/2016 CBC red blood cell count 3.99 M/uL 4.00-5 .20 low Not Available [address] [place] [address], 21164, 11/09/2016 19:09:35 11/10/19 17 11/09/2016 CBC hemoglobin 10.4 gm/dL 12.0-1 6.0 low Not Available [address] [place] [address], 74166, 11/09/2016 19:09:35 11/10/19 17 11/09/2016 CBC hematocrit 36.4 % 36.0-4 6.0 normal Not Available [address] [place] [address], 24543, 11/09/2016 19:09:35 11/10/19 17 11/09/2016 CBC MCV 91.2 fL 86-99 normal Not Available [address] [place] [address], 22066, 11/09/2016 19:09:35 11/10/19 17 11/09/2016 CBC RDW 17.8 % 11.5-1 6.0 high Not Available [address] [place] [address], 026[address], 11/09/2016 19:09:35 11/10/19 17 11/09/2016 CBC plt count 590 K/uL 140-44 0 high Not Available [address] [place] [address], 02073, 11/09/2016 19:09:35 11/10/19 17 11/09/2016 CBC NRBC% 0.0 % 0-0.2 normal Not Available [address] [place] [address], 450[address], 11/09/2016 19:09:35 11/10/19 17 11/09/2016 CBC ne# 2.81 K/uL 1.5-7. 5 normal Not Available [address] [place] [address], 39350, 11/09/2016 19:09:35 11/10/19 17 11/09/2016 CBC ly# 1.33 K/uL 1.0-4. 5 normal Not Available [address] [place] [address], 10824, 11/09/2016 19:09:35 11/10/19 17 11/09/2016 CBC MO# 0.38 K/uL 0.0-0. 8 normal Not Available [address] [place] [address], 23[address], 11/09/2016 19:09:35 11/10/19 17 11/09/2016 CBC eo# 0.04 K/uL 0.0-0. 4 normal Not Available [address] [place] [address], 48900, 11/09/2016 19:09:35 11/10/19 17 11/09/2016 CBC ba# 0.04 K/uL 0.0-0. 2 normal Not Available [address] [place] [address], 23720, 11/09/2016 19:09:35 11/10/19 17 11/09/2016 CBC Ig# 0.02 K/uL normal Not Available [address] [place] [address], 66398, 11/09/2016 19:09:35 11/10/19 17 11/09/2016 CBC ne% 60.8 % normal Not Available [address] [place] [address], 11547, 11/09/2016 19:09:35 11/10/19 17 11/09/2016 CBC ly% 28.8 % normal Not Available [address] [place] [address], 83640, 11/09/2016 19:09:35 11/10/19 17 11/09/2016 CBC MO% 8.2 % normal Not Available [address] [place] [address], 79254, 11/09/2016 19:09:35 11/10/19 17 11/09/2016 CBC eo% 0.9 % normal Not Available [address] [place] [address], 22406, 11/09/2016 19:09:35 11/10/1911/09/2016 CBC ba% 0.9 % normal Not Available [address] [place] [address], 89999, 11/09/2016 19:09:35 11/10/19 17 11/09/2016 CBC Ig% 0.4 % normal Not Available [address] [place] [address], 81494, 11/09/2016 19:09:35 11/10/19 17 11/09/2016 CBC RBC morphology REVIEW ED normal Not Available [address] [place] [address] [place] [address], 26[address], 11/09/2016 19:09:35 11/10/19 17 11/09/2016 CBC plt morphology NORMAL normal Not Available [address] [place] [address], 915[address], 11/09/2016 19:09:35 11/10/19 17 11/09/2016 CBC hypochromia MOD normal Not Avai lable [address] [place] [address], 56[address], 11/09/2016 19:09:35 11/10/19 17 11/09/2016 CBC anisocytosis MOD normal Not Pinky ilable [address] [place] [address], 318[address], 11/09/2016 19:09:35 02/04/20 17 02/03/2017 CBC WBC count 5.1 K/mm3 4.0-11 .0 normal Not Available [address] [place] [address], 47056, 02/03/2017 13:27:32 02/04/20 17 02/03/2017 CBC red blood cell count 3.97 M/uL 4.00-5 .20 low Not Available [address] [place] [address], 66657, 02/03/2017 13:27:32 02/04/20 17 02/03/2017 CBC hemoglobin 10.0 gm/dL 12.0-1 6.0 low Not Available [address] [place] [address], 62122, 02/03/2017 13:27:32 02/04/20 17 02/03/2017 CBC hematocrit 34.1 % 36.0-4 6.0 low Not Available [address] [place] [address], 83891, 02/03/2017 13:27:32 02/04/20 17 02/03/2017 CBC MCV 85.9 fL 86-99 low Not Available [address] [place] [address], 78934, 02/03/2017 13:27:32 02/04/20 17 02/03/2017 CBC RDW 19.0 % 11.5-1 6.0 high Not Available [address] [place] [address] [address] [place] [address], 0[address], 02/03/2017 13:27:32 02/04/20 17 02/03/2017 CBC plt count 583 K/uL 140-44 0 high Not Available [address] [place] [address], [address], 02/03/2017 13:27:32 02/04/20 17 02/03/2017 CBC NRBC% 0.0 % 0-0.2 normal Not Available [address] [place] [address], 720[address], 02/03/2017 13:27:32 02/04/20 17 02/03/2017 CBC ne# 3.22 K/uL 1.5-7. 5 normal Not Available [address] [place] [address], 40[address], 02/03/2017 13:27:32 02/04/20 17 02/03/2017 CBC ly# 1.01 K/uL 1.0-4. 5 normal Not Available [address] [place] [address], 98535, 02/03/2017 13:27:32 02/04/20 17 02/03/2017 CBC MO# 0.74 K/uL 0.0-0. 8 normal Not Available [address] [place] [address], 53696, 02/03/2017 13:27:32 02/04/20 17 02/03/2017 CBC eo# 0.07 K/uL 0.0-0. 4 normal Not Available [address] [place] [address], 05841, 02/03/2017 13:27:32 02/04/20 17 02/03/2017 CBC ba# 0.03 K/uL 0.0-0. 2 normal Not Available [address] [place] [address] [place] [address], 32168, 02/03/2017 13:27:32 02/04/20 17 02/03/2017 CBC Ig# 0.01 K/uL normal Not Available [address] [place] [address], 27646, 02/03/2017 13:27:32 02/04/20 17 02/03/2017 CBC ne% 63.3 % normal Not Available [address] [place] [address], 06929, 02/03/2017 13:27:32 02/04/20 17 02/03/2017 CBC ly% 19.9 % normal Not Available [address] [place] [address], 39225, 02/03/2017 13:27:32 02/04/20 17 02/03/2017 CBC MO% 14.6 % normal Not Available [address] [place] [address], 50104, 02/03/2017 13:27:32 02/04/20 17 02/03/2017 CBC eo% 1.4 % normal Not Available [address] [place] [address], 34019, 02/03/2017 13:27:32 02/04/20 17 02/03/2017 CBC ba% 0.6 % normal Not Available [address] [place] [address], 22451, 02/03/2017 13:27:32 02/04/20 17 02/03/2017 CBC Ig% 0.2 % normal Not Available [address] [place] [address], 09386, 02/03/2017 13:27:32 02/04/20 17 02/03/2017 iron + total iron- parish ng capac ity (TIBC ), serum iron 45 ug/dL 40-175 normal Not Available [address] [place] [address], 65284, 02/03/2017 13:36:43 02/04/20 17 02/03/2017 iron + total iron- parish ng capac ity (TIBC ), serum transferrin 317 mg/dL 200-36 0 normal Effec tive 5: August melgoza note the refer ence range for this test has duarte ed. Not Available [address] [place] [address], 569[address], 02/03/2017 13:36:43 02/04/20 17 02/03/2017 iron + total iron- parish ng capac ity (TIBC ), serum iron binding 411 ug/dL 250-40 0 high Not Available [address] [place] [address], 92203, 02/03/2017 13:36:43 02/04/20 17 02/03/2017 iron + total iron- parish ng capac ity (TIBC ), serum iron saturation 11 % 16-55 low Not Available [address] [place] [address] [place] [address], 85331, 02/03/2017 13:36:43 02/04/20 17 02/03/2017 iron + total iron- parish ng capac ity (TIBC ), serum ferritin 48 NG/mL 8-252 normal Peyton tin value s are age depen dent and can vary depen ding on menop ausal statu s. Not Available [address] [place] [address], 02064, 02/03/2017 13:36:43 04/13/20 17 04/13/2017 CBC WBC count 4.0 K/mm3 4.0-11 .0 normal Not Available [address] [place] [address], 24487, 04/13/2017 13:08:14 04/13/20 17 04/13/2017 CBC red blood cell count 4.57 M/uL 4.00-5 .20 normal Not Available [address] [place] [address], 64936, 04/13/2017 13:08:14 04/13/20 17 04/13/2017 CBC hemoglobin 12.0 gm/dL 12.0-1 6.0 normal Not Available [address] [place] [address] [address] [place] [address], 10319, 04/13/2017 13:08:14 04/13/20 17 04/13/2017 CBC hematocrit 40.1 % 36.0-4 6.0 normal Not Available [address] [place] [address], 63485, 04/13/2017 13:08:14 04/13/20 17 04/13/2017 CBC MCV 87.7 fL 86-99 normal Not Available [address] [place] [address], 62019, 04/13/2017 13:08:14 04/13/20 17 04/13/2017 CBC RDW 19.0 % 11.5-1 6.0 high Not Available [address] [place] [address], 66322, 04/13/2017 13:08:14 04/13/20 17 04/13/2017 CBC plt count 496 K/uL 140-44 0 high Not Available [address] [place] [address], 46265, 04/13/2017 13:08:14 04/13/20 17 04/13/2017 CBC NRBC% 0.0 % 0-0.2 normal Not Available [address] [place] [address], 65588, 04/13/2017 13:08:14 04/13/20 17 04/13/2017 CBC ne# 2.17 K/uL 1.5-7. 5 normal Not Available [address] [place] [address], 40505, 04/13/2017 13:08:14 04/13/20 17 04/13/2017 CBC ly# 1.29 K/uL 1.0-4. 5 normal Not Available [address] [place] [address], 75375, 04/13/2017 13:08:14 04/13/20 17 04/13/2017 CBC MO# 0.43 K/uL 0.0-0. 8 normal Not Available [address] [place] [address] [address] [place] [address], 79756, 04/13/2017 13:08:14 04/13/20 17 04/13/2017 CBC eo# 0.06 K/uL 0.0-0. 4 normal Not Available [address] [place] [address] [address] [place] [address], 93561, 04/13/2017 13:08:14 04/13/20 17 04/13/2017 CBC ba# 0.02 K/uL 0.0-0. 2 normal Not Available [address] [place] [address] [address] [place] [address], 10482, 04/13/2017 13:08:14 04/13/20 17 04/13/2017 CBC Ig# 0.01 K/uL normal Not Available [address] [place] [address] [address] [place] [address], 97816, 04/13/2017 13:08:14 04/13/20 17 04/13/2017 CBC ne% 54.5 % normal Not Available [address] [place] [address] [address] [place] [address], 68802, 04/13/2017 13:08:14 04/13/20 17 04/13/2017 CBC ly% 32.4 % normal Not Available [address] [place] [address] [address] [place] [address], 26647, 04/13/2017 13:08:14 04/13/20 17 04/13/2017 CBC MO% 10.8 % normal Not Available [address] [place] [address] [address] [place] [address], 52058, 04/13/2017 13:08:14 04/13/20 17 04/13/2017 CBC eo% 1.5 % normal Not Available [address] [place] [address] [address] [place] [address], 98793, 04/13/2017 13:08:14 04/13/20 17 04/13/2017 CBC ba% 0.5 % normal Not Available [address] [place] [address] [address] [place] [address], 15050, 04/13/2017 13:08:14 04/13/20 17 04/13/2017 CBC Ig% 0.3 % normal Not Available [address] [place] [address] [place] [address], 86636, 04/13/2017 13:08:14 04/13/20 17 04/13/2017 PTH (para thyro id hormo ne), intac t, serum or plasm a parathyroid hormone intact 152 pg/mL 14-72 high Not Available [address] [place] [address] [address] [place] [address], 03734, 04/13/2017 14:32:23 04/13/20 17 04/13/2017 CMP, serum or plasm a glucose 87 mg/dL 70-109 normal Not Available [address] [place] [address], 14675, 04/13/2017 14:42:38 04/13/20 17 04/13/2017 CMP, serum or plasm a BUN 10 mg/dL 6-26 normal Not Available [address] [place] [address], 03470, 04/13/2017 14:42:38 04/13/20 17 04/13/2017 CMP, serum or plasm a creatinine 0.71 mg/dL 0.0-1. 3 normal Not Available [address] [place] [address], 52001, 04/13/2017 14:42:38 04/13/20 17 04/13/2017 CMP, serum [...] G5 (kidn ey failu re). Not Available [address] [place] [address], 37873, 04/13/2017 14:42:38 04/13/20 17 04/13/2017 CMP, serum or plasm a calcium 9.9 mg/dL 8.3-9. 9 normal Not Available [address] [place] [address], 75041, 04/13/2017 14:42:38 04/13/20 17 04/13/2017 CMP, serum or plasm a total protein 6.9 g/dL 5.9-7. 9 normal Effec tive 5: Pleas e note the refer ence range for this test has duarte ed. Exact pedia tric range s are not estab lishe d, but tend to be lower than adult range s. Not Available [address] [place] [address], 734[address], 04/13/2017 14:42:38 04/13/20 17 04/13/2017 CMP, serum or plasm a albumin 4.0 g/dL 2.9-4. 7 normal Not Available [address] [place] [address], 37472, 04/13/2017 14:42:38 04/13/20 17 04/13/2017 CMP, serum or plasm a alkaline phosphatase 56 IU/L 18-210 normal Not Available [address] [place] [address], 23512, 04/13/2017 14:42:38 04/13/20 17 04/13/2017 CMP, serum or plasm a SGOT (AST) 22 IU/L 15-37 normal Effec tive 5: Pleas e note the refer ence range for this test has duarte ed. Not Available [address] [place] [address], 85905, 04/13/2017 14:42:38 04/13/20 17 04/13/2017 CMP, serum or plasm a bilirubin total 0.4 mg/dL 0.2-1. 3 normal Not Available [address] [place] [address], 80945, 04/13/2017 14:42:38 04/13/20 17 04/13/2017 CMP, serum or plasm a SGPT (ALT) 23 IU/L 13-56 normal Not Available [address] [place] [address], 35112, 04/13/2017 14:42:38 04/13/20 17 04/13/2017 CMP, serum or plasm a sodium 141 mEq/L 135-14 5 normal Not Available [address] [place] [address], 74840, 04/13/2017 14:42:38 04/13/20 17 04/13/2017 CMP, serum or plasm a potassium 4.4 mEq/L 3.5-5. 1 normal Not Available [address] [place] [address], 70801, 04/13/2017 14:42:38 04/13/20 17 04/13/2017 CMP, serum or plasm a chloride 108 mEq/L 98-112 normal Not Available [address] [place] [address], 32722, 04/13/2017 14:42:38 04/13/20 17 04/13/2017 CMP, serum or plasm a CO2 25 mEq/L 20-32 normal Not Available [address] [place] [address], 33209, 04/13/2017 14:42:38 04/13/20 17 04/13/2017 CMP, serum or plasm a anion gap 8 mEq/L 5-15 normal Not Available [address] [place] [address], 08174, 04/13/2017 14:42:38 04/13/20 17 04/13/2017 magne sium, serum or plasm a magnesium 2.1 mg/dL 1.6-2. 6 normal Not Available [address] [place] [address], 93725, 04/13/2017 14:42:40 04/13/20 17 04/13/2017 lipid panel , serum cholesterol 167 mg/dL normal ASHA ABLE <200 Asha able 200-2 39 Borde rline High >=240 High Not Available [address] [place] [address], 71356, 04/13/2017 14:42:41 04/13/20 17 04/13/2017 lipid panel , serum triglyceride 190 mg/dL normal BORDE RLINE HIGH <=150 Luz l 150-1 99 Borde rline High 200-4 99 High >=500 Very High Not Available [address] [place] [address], 00771, 04/13/2017 14:42:41 04/13/20 17 04/13/2017 lipid panel , serum HDL 66 mg/dL normal OPTIM AL <40 Low >=60 Optim al Not Available [address] [place] [address], 39062, 04/13/2017 14:42:41 04/13/20 17 04/13/2017 lipid panel , serum calculated LDL 63 mg/dL normal OPTIM AL <100 Optim al 100-1 29 Near optim al 130-1 59 Borde rline High 160-1 89 High >=190 Very High The above class ifica tions are based on the recom menda tions of the NCEP Exper t Panel , (ATP III, 2001) . Not Available [address] [place] [address], 20779, 04/13/2017 14:42:41 04/13/20 17 04/13/2017 iron + total iron- parish ng capac ity (TIBC ), serum iron 42 ug/dL 40-175 normal Not Available [address] [place] [address] [place] [address], 01878, 04/13/2017 14:42:42 04/13/20 17 04/13/2017 iron + total iron- parish ng capac ity (TIBC ), serum transferrin 275 mg/dL 200-36 0 normal Effec tive 5: Pleas e note the refer ence range for this test has duarte ed. Not Available [address] [place] [address], 74714, 04/13/2017 14:42:42 04/13/20 17 04/13/2017 iron + total iron- parish ng capac ity (TIBC ), serum iron binding 359 ug/dL 250-40 0 normal Not Available [address] [place] [address], 40957, 04/13/2017 14:42:42 04/13/20 17 04/13/2017 iron + total iron- parish ng capac ity (TIBC ), serum iron saturation 12 % 16-55 low Not Available [address] [place] [address] [place] [address], 87297, 04/13/2017 14:42:42 04/13/20 17 04/13/2017 iron + total iron- parish ng capac ity (TIBC ), serum ferritin 15 NG/mL 8-252 normal Peyton tin value s are age depen dent and can vary depen ding on menop ausal statu s. Not Available [address] [place] [address], 40598, 04/13/2017 14:42:42 04/13/20 17 04/13/2017 vitam in B12, serum vitamin B12 279 pg/mL 193-98 6 normal Effec tive 5: Pleas e note the refer ence range for this test has duarte ed. Not Available [address] [place] [address], 16560, 04/13/2017 14:42:43 04/13/20 17 04/13/2017 vitam in [...] suppl ement ation . Not Available [address] [facility], [place], [address], 04/13/2017 14:42:45 12/15/19 17 12/09/2016 XR, chest , 2 view No observ ation record ed. Not Available 2016 17:07:18 12/15/19 17 12/02/2016 CT, chest , w/o contr ast No observ ation record ed. Not Available 2016 17:07:18 12/15/19 17 12/02/2016 XR, chest No observ ation record ed. [email or web address] Not Available 2016 17:07:18 01/23/20 17 01/18/2017 US, echoc ardio gram [facility] [employer] [facility] , [place]. [address] - Ch[place] t: SIMIN GAMEZ ROL Phone: Exam Date:0 7 Exam: ECHOCA RDIOGR AM Attend yvette Jorgensen:Kim NAILS :[birth year] Age/Se x: 71/F Kendrick dixon M.D.: BHAVYA TA E.DChristi Attend yvette Jorgensen: X-Ray #: [id number] Locati on: CAV.NA Sympto ns for test: DYSPNE A Diagno sis: [facility] [address] [place] [address] [phone] Transt horaci c Echoca rdiogr am 2D, M-mode , Dopple r, and Color Dopple r Name: YOLI ANNA MR #: [id number] Accoun t #: [id number] Study date: 2016 : 1944 Gender : [...] MV A Heriberto: 130 cm/s MV Dec [place]: 633.3 cm/s2 MV DecT: 146.6 ms MV [...] Techno logist ...... ...... ...... ....: [place] [email or web address] [facility] (Radiology) [address] [place] [address], [address], 01/22/2017 15:51:25 01/26/20 17 01/01/2017 US, flaquita domingo, jorge s, [facility] anna No observ ation record ed. [email or web address] Not Available 2016 09:56:42 02/05/20 17 tomeka metry testi ng* No observ ation record ed. [email or web address] Not Available 2016 19:17:10 02/18/20 17 02/12/2017 CT, chest , w/o contr ast [facility] s ADALBERTO VARGAS [facility] FILEMON IMAGIN G CTR DIAGNO STIC IMAGIN G DEPART MENT [address] [place] [address] - Patien t: SIMIN GAMEZ Phone: Exam Date:1 7 Exam: CT Chest Wo Attend [facility] M.D.:Kim NAILS WEBBING SUPERVISOR :[birth year]09 Age/Se x: 72/F Orderi zack Morley.:Kmi NAILS E.DChristi Attend yvette M.D.: Primar y Thais Morley.: BHAVYA TA WEBBING SUPERVISOR X-Ray #: [id number] Locati on: RAD.NA Other Locati on: [...] n: [id number] [id number] Access ion Number : [id number] Transc ribed by: PS Interp reting Physic danna: VALENTÍN DURAN MD Electr onical ly Signed by: NAHOMY DURAN MD on 1344 Rec'd in [facility] on : 1344 Techno logist : RM Exam CPT #: [id number] Briana Melara r #: [id number] Report #: [id number] [facility] Rec#:[id number] Report Status : Signed [address] (Radiology) [address] [place] [address], [address], 02/17/2017 19:58:28 02/25/20 17 02/04/2017 tomeka metry testi ng* No observ ation record ed. [email or web address] In-Office Order Internal Use Only DO Not Attach Compendium DO Not Attach Compendium, Do Not Delete/merge, [id number] 02/24/2017 09:26:11 Result Notes None recorded. Problems Name Problem SNOMED Code Status Onset Date Resolution Date Notes Provider Name and Address Organization Details Recorded Time Bursitis of shoulder 750581884 Completed 09/20/2015 Maddison Ta [address], [address], [facility] [employer] 6 11:16:08 Hypercho lesterol emia 67100062 Completed 09/19/2015 Maddison Ta [address], [address], [facility] [employer] 6 11:16:08 Disorder of lipid metaboli sm 163525905 Completed 09/19/2015 Maddison Ta [address], [address], [facility] [employer] 6 11:16:08 Restless legs 45005211 Active ? hives w/mirape x, Gabapent in no longer effectiv e. Neupro patch & Lyrica are too expensiv e. Referrin g to Neurolog y. Maddison Ta [address], [address], [facility] [employer] 7 10:40:06 Pure hypercho lesterol emia 549927477 Completed 09/19/2015 Maddison Ta [address], [address], [facility] [employer] 6 11:16:08 Anemia 114565737 Completed 09/20/2015 Maddison Ta [address], [address], [facility] [employer] 6 11:16:08 Hyperten sive disorder 16136289 Completed 04/08/2016 Maddison Ta [address], [address], [facility] [employer] 6 21:12:21 Hyperlip idemia 98451899 Active Maddison Ta [address], [address], [facility] [employer] 7 11:31:53 Pain 88107568 Completed 09/25/2015 Maddison Ta [address], [address], [facility] [employer] 6 20:26:38 Abnormal breath sounds 154485581 Completed 04/08/2016 Maddison Ta [address], [address], [facility] [employer] 6 20:35:08 Iron deficien cy anemia 25792379 Active Secondar y to chronic stomach ulcers dx'd on EGD 09/22, Dr. Almonte. Maddison Ta [address], [address], [facility] [employer] 6 20:35:05 Constipa tion 69490431 Active secondar y to iron supp Maddison Ta [address], [address], [facility] [employer] [facility] [employer] 6 20:34:14 Edema 915601072 Completed 04/08/2016 Maddison Ta [address], [address], [facility] [employer] 6 20:26:14 Laborato ry test result abnormal 285806247 Completed 04/08/2016 Maddison Ta [address], [address], [facility] [employer] [facility] 6 20:25:56 C-reacti ve protein outside referenc e range 012512979 Completed 04/08/2016 Maddison Ta [address], [address], [facility] [employer] [facility] 6 20:26:03 Hypomagn esemia 614986279 Active Maddison Ta [address], [address], [facility] [employer] 6 11:16:07 Pain 27725470 Completed 04/08/2016 Maddison Ta [address], [address], [facility] [employer] [facility] 6 20:26:38 Smoker 06763491 Completed 04/08/2016 Maddison Ta [address], [address], [facility] [employer] [facility] [employer] 7 11:32:18 Pain of joint 10613980 Completed 04/08/2016 Maddison Ta [address], [address], [facility] [employer] [facility] 6 20:26:18 Rheumato id arthriti s 83293913 Active [facility] Maddison Ta [address], [address], [facility] [employer] [facility] [employer] 7 11:30:56 Ulcer 104479502 Active 2015 Multiple chronic antrum ulcers. Accounta ble for iron deficien cy. Dr. Almonte. Maddison Ta [address], [address], [facility] [employer] [facility] [employer] 6 21:14:17 Nicotine dependen ce 45382051 Completed 04/24/2017 Maddison Ta [address], [address], [facility] [employer] [facility] 7 11:32:11 Osteopor osis 83997927 Active 02/28/20 16 BMD w/Severe osteopor osis. 04/09/16 starting fosamax. Maddison Ta [address], [address], [facility] [employer] [facility] 6 12:37:52 Vitamin D deficien cy 18493697 Active Maddison Ta [address], [address], [facility] [employer] [facility] 7 11:31:35 Psoriati c arthriti s 369765698 Active [facility] Maddison Ta [address], [address], [facility] [employer] [facility] 7 11:31:03 Coronary atherosc lerosis 784197269 Active 11/23 CT chest. Mild atherosc lerosis of coronary arteries . Hx of ulcer w/iron def anemia. Asa d/c'd - risk outweigh s benefit at this time. Continue statin. Needs to quit smoking. Maddison Ta [address], [address], [facility] [employer] [facility] 7 17:50:30 At increase d risk for falls 248970339 Active Does have cane and walker, hospital bed w/rails, handle bars in shower. Maddison Ta [address], [address], [facility] [employer] [facility] 7 10:15:08 Smoker 20825072 Active 2016 Maddison Ta [address], [address], [facility] [employer] [facility] 7 11:32:18 Cobalami n deficien cy 729005706 Active Maddison Ta [address], [address], [facility] [employer] 7 11:47:44 Hyperpar athyroid ism 06078167 Active MaddisonAMERICA Turner [address] [place] [address], [address], [facility] [employer] 7 11:47:46 Chronic rhinitis 41440632 Active AMERICA Leavitt [address] [place] [address], [address], [facility] [employer] 7 11:47:50 Notes:01/2016 Hep C negative Problem Notes None recorded. Procedures Surgical History Date Name Laterality Status Provider Name and Address Organization Details Recorded Time 02/28/20 16 Mammogram completed AMERICA Leavitt [address] [place] [address], [address], [facility] [employer] 03/02/2016 10:39:30 11/07/19 16 Colonoscopy completed AMERICA Leavitt [address] [place] [address], [address], [facility] [employer] 11/19/2015 11:39:50 09/20/19 16 EGD completed AMERICA Leavitt [address] [place] [address], [address], [facility] [employer] 04/08/2016 21:14:07 04/06/19 73 Hysterectomy completed AMERICA Leavitt [address] [place] [address], [address], [facility] [employer] 09/20/2015 14:42:08 01/04/19 73 Section completed mandy castrejon [place] [employer] 09/18/2015 16:50:14 05/10/18 73 Appendectomy completed AMERICA Leaivtt [address] [place] [address], [address], [facility] [employer] 10/18/2015 11:17:55 Imaging Results Imaging Date Name Status LastModified by Organization Details LastModified Time 12/09/2016 XR, chest, 2 view completed [email or web address] Informa tion not available 12/14/2016 17:07:18 12/02/2016 CT, chest, w/o contrast completed [email or web address] Information not available 12/14/2016 17:07:18 12/02/2016 XR, chest completed [email or web address] Information no t available 12/14/2016 17:07:18 01/18/2017 US, echocardiogram completed [email or web address] [facility] (Radiology) [address] [place] [address], [address], 01/22/2017 15:51:25 01/01/2017 US, duplex, venous, lower extremity completed [email or web address] Information not available 01/26/2017 09:56:42 02/04/2017 spirometry testing* completed [email or web address] Information not available 02/04/2017 19:17:10 02/12/2017 CT, chest, w/o contrast completed [facility] (Radiology) [address] [place], [address], 02/17/2017 19:58:28 02/04/2017 spirometry testing* completed [email or web address] In-Office Order Internal Use Only DO Not Attach Compendium DO Not Attach Compendium, Do Not Delete/merge, [id number] 02/24/2017 09:26:11 Procedure Notes None recorded. Medical Equipment None Reported. Allergies Allergen ID Allergen Name Allergen Category Reaction Reaction Severity Criticality Documentation Date Start Date Code Code System Note Provider Name and Address Organization Details Recorded Time 30988 Oxycontin medicatio n hives Not available Not available 10/09/2015 49497 6 RxNorm mandy crain [facility] [employer] [facility] 6 09:56:45 73415 pramipexo le medicatio n hives Not available Not available 04/26/2017 54793 1 RxNorm AMERICA Leavitt [address] [place], [address] , [facility] [employer] [facility] 7 19:38:42 Medications Name [...] Available Not Available Not Available [employer] [facility] 12/23 completed Not Available Not Available Not [...] Updated DateTime 7 157.48 cm 28.5 kg/m2 89997.4 1 g 99 /min 128 mm[Hg] 80 mm[Hg] Evelyn DudleyHamilton Insurance GroupDamian [employer] [facility] [employer] [facility] 7 09:20:32 Date Recorded Body height Body mass index (BMI) Body weight Heart rate Oxygen saturation Oxygen saturation in Arterial blood by Pulse oximetry Body temperature Systolic blood pressure Diastolic blood pressure Provider Name and Address Organization Details Last Updated DateTime 7 157.48 cm 27.3 kg/m2 04275.0 6 g 101 /min 94 % 94 % 98.7 [degF] 144 mm[Hg] 88 mm[Hg] Evelyn Teran [employer] [facility] 7 08:42:43 Date Recorded Body height Body mass index (BMI) Body weight Heart rate Oxygen saturation Oxygen saturation in Arterial blood by Pulse oximetry Body temperature Systolic blood pressure Diastolic blood pressure Provider Name and Address Organization Details Last Updated DateTime 7 157.48 cm 27.3 kg/m2 58641.3 6 g 113 /min 96 % 96 % 98.2 [degF] 132 mm[Hg] 80 mm[Hg] Evelyn NikolasDamian Quettraradha [facility] [employer] 7 16:11:40 Date Recorded Body height Body mass index (BMI) Body weight Heart rate Oxygen saturation Oxygen saturation in Arterial blood by Pulse oximetry Systolic blood pressure Diastolic blood pressure Provider Name and Address Organization Details Last Updated DateTime 7 157.48 cm 26.9 kg/m2 36417.0 8 g 93 /min 99 % 99 % 130 mm[Hg] 90 mm[Hg] Evelyn red [facility] [employer] [facility] 7 16:17:39 Date Recorded Body height Body mass index (BMI) Body weight Heart rate Oxygen saturation Oxygen saturation in Arterial blood by Pulse oximetry Systolic blood pressure Diastolic blood pressure Provider Name and Address Organization Details Last Updated DateTime 7 157.48 cm 25.7 kg/m2 17111.0 3 g 89 /min 98 % 98 % 144 mm[Hg] 88 mm[Hg] Evelyn DudleyHamilton Insurance GroupDamian [facility] [employer] [facility] 7 08:46:14 Social History Question Answer Notes LastModified by Organizat ion Details LastModified Time Tobacco Smoking Status Current Every Day Smoker Previously quit 04/03/16. Maddison Ta [address], [address], [facility] [employer] [facility] 04/08/2016 21:10:44 Do You Have An Advance Directive? No Paper Work Provided 11/16/16 Information not available 11/16/2016 What Is Your Level Of Alcohol Consumption? None [email or web address] Information not available 09/18/2015 Which Illicit Or Recreational Drugs Have You Used? Denies [email or web address] Information not available 09/19/2015 Are There Any Guns Present In Your Home? No Information not available 07/20/2016 Dietary Regular Chicken And Fish, Does Not Like Red Meat [email or web address] Information not available 10/18/2015 Marital Status [email or web address] Informat[employer] on not available 09/18/2015 What Was The Date Of Your Most Recent Tobacco Screening? 04/21/2017 Information not available 11/30/2018 How Many Children Do You Have? 2 Youngest Son Biological And Oldest Son Adopted [email or web address] Information not available 10/18/2015 Seat Belts Used Routinely Yes Information not available 07/20/2016 Smoke Alarm In Home Yes Information not available 07/20/2016 At What Age Did You Start Smoking Tobacco? 20 [email or web address] Information not available 10/18/2015 How Much Tobacco Do You Smoke? 0.5 PPD 3 Cigarettes Daily Information not available 04/21/2017 Do You Use Sunscreen Routinely? Yes Information not available 07/20/2016 Sex: Unknown Functional Status Question Answer Note LastModified by Organization D etails LastModified Time What is your exercise level? None [email or web address] Information not available 10/18/2015 Mental Status None recorded. Family History Relationship Description Onset Age of this Age Resolved Age Notes LastModified by Organization Details LastModified Time Father Hypertensive disorder 65 [email or web address] Not available 2015 11:22:03 Father Heart disease Not available 2015 11:22:03 Father Rheumatoid arthritis [email or web address] Not available 2015 11:22:03 Mother Renal failure syndrome [email or web address] Not available 2015 11:22:03 Mother Hypertensive disorder [email or web address] Not available 2015 11:22:03 Mother Heart disease [email or web address] Not available 2015 11:22:03 Sister Deep venous thrombosis stent placem ent [email or web address] Not available 04/21/2017 10:18:13 Medical History Condition [...] quadrivalent, preservative 04/21/20 17 completed Not Available [facility] 05/27/2019 02:40:02 pneumococcal polysaccharide PPV23 04/21/20 17 completed Not Available [facility] 05/27/2019 02:40:02 Tdap 05/10/19 12 completed AMERICA Leavitt [address] [facility], [place], [address], [facility] [email or web address] 01/17/2016 08:58:39 Pneumococcal conjugate PCV 13 03/25/20 16 completed Not Available [facility] 06/10/2019 02:16:57 Influenza, high-dose, trivalent, PF 03/25/20 16 completed Not Available [facility] 06/10/2019 02:16:57 Past Encounters Encounter ID Performer Location Encounter Start Date Encounter Closed Date Diagnosis/Indication Diagnosis SNOMED-CT Code Diagnosis ICD10 Code Diagnosis Note [id number] Bradford Mike MD. [facility] Parent Coach s [address] [place] [phone] 09/19/2015 10:47:43 09/19/2015 12:17:07 Pain 24117886 R52 Muscle spasm, cramps and joint pain. Broad ddx including electrolyt e abnormalit y, rheumatolo gic disorder, malignancy , GIB, small possibilit y this could be PMR. Will obtain labs now and call to f/u. Offered to start prednisone 20 mg one tab daily x 45 days and will call tomorrow. Patient and agree to plan. Abnormal b reath sounds 155081739 R09.89 Will hold off on CXR at this time. Will discuss obtaining LDCT once she is feeling better. Restless legs 82798710 G 25.81 She is asking to have gabapentin increased. She is currently on gabapentin 600 mg po 3 times a day. Therefore, we will increase to gabapentin 800 mg 3 times a day. F/u next ov. [id number] Bradford Mike MD. [facility] Parent [facility] [address] [place] [phone] 09/23/2015 15:08:59 09/23/2015 16:27:42 Iron deficiency anemia 19674172 D50.9 09/23/15 Continue iron one tab BID. [...] reoccuring symptoms. Patient agrees with plan. Constipation 14441457 K5 9.00 Secondary to iron supplement . Pain 16736514 R52 Muscle spasm, cramps and joint pain. [...] Recheck CCP and CRP. Refer to Rheumatkael gy. Discuss at f/u. She will most likely have to travel. Consider [facility] n or [facility] d since she is from [place]. Edema 695890098 R60.9 Now trace. Continue to monitor. Elevate TID/PRN. Call for any increased swelling. Abnormal b reath sounds 619603871 R09.89 + smoker. Will discuss obtaining LDCT next ov. Restless legs 42076303 G 25.81 Gabapentin increased from 600 mg to 800 mg 3 times a day with good effect. Continue to monitor. [id number] Bradford Mike MD. [facility] [address] [place] [phone] 10/09/2015 09:36:24 10/09/2015 10:32:41 Hypomagnesemia 990397200 E83.42 Hyperlipidemia 40790451 E78.5 Pain 41265973 R52 Muscle spasm, cramps and joint pain. [...] Recheck CCP and CRP. Refer to Rheumatkael gy. Discuss at f/u. She will most likely have to travel. Consider [facility] or [facility] d since she is from [place]. 10/09/15 Amenable to Rheumatkael gy. Start prednisone 40 mg x 5 days and then 20 mg x 5 days. RTC 10/18/15. Iron defic iency anemia 38781126 D50.9 09/23/15 Continue iron one tab BID. [...] as noted above prior to next ov. [id number] Bradford Mike MD. [facility] Parent [facility] [address] [place] [phone] 10/18/2015 10:35:56 10/18/2015 11:59:47 Smoker 41017494 F17.200 She plans on trying the nicotine lozenges. Pain 59555160 R52 Muscle spasm, cramps and joint pain. [...] will most likely have to travel. Consider [facility] theo or [facility] yogesh since she is from [place]. 10/09/15 Amenable to Rheumatkael gonzalez. Start prednisone 40 mg x 5 days and then 20 mg x 5 days. RTC 10/18/15. 10/18/15 Awaiting call from Dominik gonzalez [place] . Informatio n provided for Dr. Jennifer mann in [facility]. Another trial of lower dose prednisone . Constipation 82877760 K5 9.00 Secondary to iron supplement . Contact Dr. Almonte for any worsening symptoms. Iron defic iency anemia 44464029 D50.9 09/23/15 Continue iron one tab BID. [...] current dose. Recheck labs one month Edema 872241680 R60.9 Now trace. Continue to monitor. Elevate TID/PRN. Call for any increased swelling. 6/10/16 Instructio ns as above. Hypertensive disorder 38 138702 I10 Borderline today. She smoked just prior to coming in. Continue to monitor. She is currently not on any medication s. [id number] Bradford Mike MD. [facility] [address] [place] [phone] 01/17/2016 08:25:13 01/17/2016 09:36:59 Hypertensive disorder 93790947 I10 Borderline today. She smoked just prior to coming in. Continue to monitor. She is currently not on any medication s.01/16/16 Same today. Continue to monitor. Pain 81481950 R52 Muscle spasm, cramps and joint pain. [...] will most likely have to travel. Consider [facility] n or [facility] d since she is from [place]. 10/09/15 Amenable to Rheumatkael gy. Start prednisone 40 mg x 5 days and then 20 mg x 5 days. RTC 10/18/15. 10/18/15 Awaiting call from Rheumatkael gonzalez, [place] . Informatio n provided for Dr. Jennifer mann in [facility]. Another trial of lower dose prednisone .01/17/16 [...] Arora was able to passively bend it. Pain of joint 95558919 M 25.50 01/17/16 Prednisone is effective for joint pain. Iron defic iency anemia 05804761 D50.9 09/23/15 Continue iron one tab BID. [...] will forward results. Call to f/u Edema 414211239 R60.9 Now trace. Continue to monitor. Elevate TID/PRN. Call for any increased swelling. 10/18/15 Instructio ns as above. Currently denies. Continue to monitor. call with worsening symptoms. Constipation 78477477 K5 9.00 Secondary to iron supplement . Contact Dr. Almonte for any worsening symptoms. Controlled with metamucil or colace daily. Smoker 43740382 F17.200 She plans on trying the nicotine lozenges. She is down to 5 cigarettes daily. Encouraged continued efforts to quit. Restless legs 56873709 G 25.81 Gabapentin increased from 600 mg to 800 mg 3 times a day with good effect. Continue to monitor.01/17/16 Take 1.5 tablets at 4 pm and then take 1.5 tablets 2 hours prior to bedtime per Up-to-date recommenda tions. Instructed to call in one week if no effect. Screening for malignant neoplasm of breast 250542575 Z12.31 She would like to have mammo in [facility]. She is going back for labs next week and will request then. Exposure t o Hepatitis C virus 315095191 Z20.5 She is having screening completed by Dr. Arora. Administra tion of influenza vaccine 86924370 Z23 She plans on having at [facility] d/t complete coverage. Screening for osteoporosis 620886004 Z13.820 She would like to have in [facility]. She is going back for labs next week and will request then. [id number] Bradford Mike MD. [facility] Parent Coach [address] [phone] 04/08/2016 09:25:36 04/08/2016 10:56:31 Osteoporosis 02594473 M81.0 She reports she was told not to take calcium or vitamin d in the past.She is taking magnesium at night. Edentulous .Amenable to starting Fosamax. Hold and complete labs and f/u. Iron defic iency anemia 52584678 D50.9 09/23/15 Continue iron one tab BID. [...] Repeat labs and call to f/u. Hypomagnesemia 210919502 E83.42 04/08/16 worsening RLS. Repeat labs and call to f/u. Hypertensive disorder 38 670568 I10 Reasonable . She is currently not taking anything. Restless legs 63138311 G 25.81 Gabapentin increased from 600 mg [...] She is currently taking 2,400 mg daily. [id number] Bradford Mike MD. [facility] [address] [place] [phone] 04/20/2016 08:30:02 04/20/2016 09:51:39 Hypomagnesemia 416609703 E83.42 04/08/16 worsening RLS. Repeat labs and call to f/u. mag WNL. Continue mag 400 mg daily. Continue to monitor. Osteoporosis 70499649 M8 1.0 She reports she was told [...] due in 2019. Iron defic iency anemia 07709301 D50.9 09/23/15 Continue iron one tab BID. [...] Review labs from Dr. Arora. Restless legs 79408225 G 25.81 Gabapentin increased from 600 mg [...] at 3200 mg daily. Rheumatoid arthritis 698 [address] Jenkins on 04/16/16 and he started her on methotrexa te 2.5 mg four tabs once a week and folic acid 1 mg daily. She is having worsening hand pain today. She did take prednisone this morning. Abnormal weight gain 161 912793 R63.5 She has developed pain over the past several years and therefore has not been as active as she once was. Counseling provided. We discussed swimming and stationary bike. She would have to learn how to swim if she does pursue water aerobics, but is open to the idea. Will re-check TSH in the interim. Screening for malignant neoplasm of respiratory tract 113704930 Z12.2 Counseling provided. Declines screening at this time. Hyperlipidemia 30310889 E78.5 03/2015 LDL 81, HDL 70 Trigs WNL and she has quit smoking. Will continue to monitor. Adult heal th examination 943270656 Z00.00 Overweight . Bilateral hand swelling and decreased ROM. Overweight 726709271 E66 .3 She has developed pain over the past several years and therefore has not been as active as she once was. Counseling provided. We discussed swimming and stationary bike. She would have to learn how to swim if she does pursue water aerobics, but is open to the idea. Will re-check TSH in the interim. Administra tion of pneumococcal vaccine 05934014 Z23 pneumovax due . [id number] Bradford Mike MD. [facility] Parent Coach [address] [address] 07/20/2016 08:27:12 07/20/2016 09:27:37 Osteoporosis 09222370 M81.0 She reports she was told not [...] no change. Continue as above. Restless legs 03505040 G 25.81 Gabapentin increased from 600 mg [...] Continue as above. Iron defic iency anemia 67179673 D50.9 09/23/15 Continue iron one tab BID. [...] f/u. Continue iron 325 mg bid. Hypomagnesemia 576758970 E83.42 04/08/16 worsening RLS. Repeat labs and call to f/u. mag WNL. Continue mag 400 mg daily. Continue to monitor. Will update level since she is having intermitte nt severe pain. Rheumatoid arthritis [address] Jenkins on 04/16/16 [...] call to f/u. Abnormal weight gain 161 826038 R63.5 She has developed pain over the [...] Screening for malignant neoplasm of respiratory tract 930185108 Z12.2 Counseling provided. Declines screening at this time. Hyperlipidemia 22583292 E78.5 03/2015 LDL 81, HDL 70 Trigs WNL and she has quit smoking. Will continue to monitor. Rechecking now. Call to f/u. Continue pravastati n 40 mg daily. Overweight 000796583 E66 .3 She has developed pain over [...] mg daily. Administra tion of pneumococcal vaccine 55945321 Z23 pneumovax due Sep, 2016. Vitamin D deficiency 347 42922 E55.9 Level was 10 at the end of Mar and for some reason another level was drawn early at the end of April and 35 after only one month of high dose. Gastroesop hageal reflux disease 165056318 K21.9 Swelling 76036131 R60.9 Also c/o pills getting stuck. Occasional ly choking on liquid. Most likely subcutaneo us tissue. Recommend u/s to r/o any thyroid d/o. Hx of weight gain. She would like to hold off for now d/t financials . Dysphagia 15191504 R13.1 0 New history of pills getting stuck. Occasional ly choking on liquid. Denies any food becoming stuck. She is sitting up. She reports swelling in lower neck. Severe heartburn. She is taking Pepto with good effect. She will call Dr. Almonte for ov aby. [id number] Bradford Mike MD. [facility] Parent Coach s [address] [facility] [place] [address] 11/16/2016 09:06:32 11/16/2016 10:29:28 Osteoporosis 42839326 M81.0 2015 She reports she was told [...] Needs PTH updated. Continue fosamax. Restless legs 26624158 G 25.81 2015 Gabapentin increased from 600 [...] with any changes. Iron defic iency anemia 22017701 D50.9 09/23/15 Continue iron one tab BID. [...] normalizes . Patient agrees with plan. Hypomagnesemia 198949244 E83.42 04/08/16 worsening RLS. Repeat labs and call to f/u. mag WNL. Continue mag 400 mg daily. Continue to monitor. Will update level since she is having intermitte nt severe pain. continue mag oxide 400 mg daily. Most recent level was 2.6 in July,. Rheumatoid arthritis 698 [address]351 M06.[address] Jenkins on [...] end of Jan. Abnormal weight gain 161 846554 R63.5 2015 She has developed pain over [...] Screening for malignant neoplasm of respiratory tract 533059801 Z12.2 Counseling provided. Declines screening at this time. Hyperlipidemia 41754909 E78.5 03/2015 LDL 81, HDL 70 Trigs WNL and she has quit smoking. Will continue to monitor. Rechecking now. Call to f/u. Continue pravastati n 40 mg daily. Overweight 343203066 E66 .3 2015 She has developed pain [...] diet mods. Administra tion of pneumococcal vaccine 49076248 Z23 pneumovax due Mar, 2017. Vitamin D deficiency 347 55302 E55.9 2016 Level was 10 at the [...] 50,ooo units weekly. Gastroesop hageal reflux disease 416358625 K21.9 Dysphagia 18406211 R13.1 0 11/16/16 Resolved since starting omeprazole [...] Almonte for ov aby. Cobalamin deficiency 190 453842 E53.8 Constipation 35690850 K5 9.00 2015 Secondary to iron supplement . Contact Dr. Almonte for any worsening symptoms. Controlled with metamucil or colace daily.11/16 Stable. As above. Nicotine dependence 5629 4008 F17.200 Cessation advised. [id number] Bradford Mike MD. [facility] Parent Coach s [address] [place] [address] NATHANAEL RIVERA [phone] 12/23/2016 08:34:42 12/23/2016 09:28:44 Rib pain 823330267 R07.81 12/23/16 Left posterior ribs 5 - 9 CT 12/02/16. Pain well controlled with tramadol and Tylenol. Recommende d she take tramadol aby and continue as needed. She is well aware of potential side effects and she will continue to attempt to use sparingly. Chronic ob structive pulmonary disease 33014758 J44.9 12/23/16 She must reschedule appt with [...] with albuterol INH prn for now. Pneumonia 997791361 J18. 9 12/23/16 Improved. Counseling , education and instructio ns provided re: use of IS. Use 10x/hr while awake as tolerated. Admits IS is at home but they will p/u to bring to daughter-i n-law's. Call with any fevers, chills, worsening cough, sob, sputum production , wheeze, weakness, fatigue. Smoker 36128351 F17.200 12/23/16 Quit 03/2016. But has been smoking 3 - 5 cigarettes daily. She plans on trying the nicotine lozenges. She is down to 5 cigarettes daily. Encouraged continued efforts to quit. Dyspnea 375695668 R06.00 Edema of l ower extremity 961555304 R60.0 Conservati ve measures. Will try stockings. checking echo. Elevated blood-pressure reading without diagnosis of hypertension 068141842 R03.0 12/23/16 Currently having moderate amount of pain. Daughter-kylie n - does have mannual cuff and will check readings. She states she is well versed on BP home monitoring . Instructed to call with BP readings sustained >140/90. [id number] Bradford Mike MD. [facility] [employer] Parent [employer] s [address] [place] [phone] 01/01/2017 16:02:03 01/01/2017 17:10:31 Elevated blood-pressure reading without diagnosis of hypertension 368649050 R03.0 01/01/17 Reasonable today. Continue to monitor. Currently having moderate amount of pain. Daughter-kylie boo does have manual cuff and will check readings. She states she is well versed on BP home monitoring . Instructed to call with BP readings sustained >140/90. Chronic ob structive pulmonary disease 34291411 J44.9 01/01/17 No formal dx. Still need [...] with albuterol INH prn for now. Smoker 82595006 F17.200 01/01/17 as noted below..Nasim rocha advised. Quit 03/2016. But has been smoking 3 - 5 cigarettes daily. She plans on trying the nicotine lozenges. She is down to 5 cigarettes daily. Encouraged continued efforts to quit. Edema of l ower extremity 377645613 R60.0 01/01/17 worse. Acute onset RLE this am, pain. Sending to er.12/23/16 Conservati ve measures. Will try stockings. checking echo. Rib pain 769634168 R07.8 1 01/01/17 controlled with tramadol. She will need to taper off. 7 Left posterior ribs 5 - 9 CT 12/02/16. Pain well controlled with tramadol and Tylenol. Recommende d she take tramadol aby and continue as needed. She is well aware of potential side effects and she will continue to attempt to use sparingly. Dyspnea 326592464 R06.00 could possibly perform pft's today but will not be beneficial at this time d/t priority to r/o PE/DVT. Sending to ER. [id number] Bradford Mike MD. [facility] Parent Coach s [address] [place] [phone] 02/04/2017 16:04:28 02/05/2017 08:43:30 Edema of lower extremity 051940042 R60.0 02/04/2017 much improved. Continue Lifestyle modificati ons and continue to monitor and call with any changes. worse. Acute onset RLE this am, pain. Sending to er.12/23/16 Conservati ve measures. Will try stockings. checking echo. Dyspnea 325126692 R06.00 02/04/17 PFT's today are showing restrictio [...] Elevated blood-pressure reading without diagnosis of hypertension 692526458 R03.0 02/04/17 slightly elevated but still reasonable considerin g her age. Continue to monitor. Reasonable today. Continue to monitor. Currently having moderate amount of pain. Daughter-i n -law does have manual cuff and will check readings. She states she is well versed on BP home monitoring . Instructed to call with BP readings sustained >140/90. Chronic ob structive pulmonary disease 41656120 J44.9 02/04/17 PFTs today reveal restrictiv e [...] with albuterol INH prn for now. Smoker 42200875 F17.200 02/04/17 cessation advised. as noted below. Cessation advised. Quit 03/2016. But has been smoking 3 - 5 cigarettes daily. She plans on trying the nicotine lozenges. She is down to 5 cigarettes daily. Encouraged continued efforts to quit. Rib pain 786208366 R07.8 1 02/04/17 continues to improve. She [...] to attempt to use sparingly. Restless legs 12677862 G 25.81 2015 Gabapentin increased from 600 [...] to taper off gabapentin . Pruritic disorder 340811 002 L29.9 BLE's. She will continue to maintain moisturiza tion and she can try sarna lotion. Rheumatoid arthritis 698 57825 M06.[address] Jenkins on [...] Arora is leaving the practice. Coronary atherosclerosis 332483965 I25.10 02/04/17 CT chest In November w/ Mild atheroscle rosis of coronary arteries. She continues on pravastati n 40 mg daily. Aspirin is currently on hold. Iron defic iency anemia 60383601 D50.9 09/23/15 Continue iron one tab BID. [...] Will continue to monitor. Psoriatic arthritis 1563 12944 L40.50 see RA Vitamin D deficiency 347 66294 E55.9 2015 Level was 10 at the [...] weekly.01/09 12/24 Needs repeated. Cobalamin deficiency 190 059788 E53.8 [facility] 6699 9008 E21.3 [id number] Bradford Mike MD. [facility] Parent [employer] s [address] [place] [phone] 04/21/2017 08:31:53 04/21/2017 10:45:12 Influenza vaccine needed 7381792536 106 Z23 Administra tion of pneumococcal vaccine 38725826 Z23 Hyperparathyroidism 6699 9008 E21.3 Elevated PTH. Vit d3 is not significan tly low, calcium is normal. Referring to Endocrinol madhuri for eval. Dyspnea 908446348 R06.00 04/21/[address] in February due [...] to ER. Edema of l ower extremity 077917346 R60.0 04/21/17 Currently asymptomat ic. 017 much improved. Continue Lifestyle modificati ons and continue to monitor and call with any changes. worse. Acute onset RLE this am, pain. Sending to er.12/23/16 Conservati ve measures. Will try stockings. checking echo. Elevated blood-pressure reading without diagnosis of hypertension 793169126 R03.0 04/21/17 Home readings are borderline . [...] call with BP readings sustained >140/90. Smoker 44234159 F17.200 04/21/17 Cessation advised. Continues to work on quitting. maintainin g 3 cigarettes daily at this point. 02/04/17 cessation advised. as noted below. Cessation advised. Quit 03/2016. But has been smoking 3 - 5 cigarettes daily. She plans on trying the nicotine lozenges. She is down to 5 cigarettes daily. Encouraged continued efforts to quit. Rib pain 281007670 R07.8 1 04/21/17 Resolved. continues to improve. [...] to attempt to use sparingly. Restless legs 22381328 G 25.81 2015 Gabapentin increased from 600 [...] tab daily with good effect. Pruritic disorder 845906 002 L29.9 04/21/17 Resolved. Sarna lotion with good effect.01/08 7 BLE's. She will continue to maintain moisturiza tion and she can try sarna lotion. Iron defic iency anemia 65470396 D50.9 09/23/15 Continue iron one tab BID. [...] There is no change. Rheumatoid arthritis 698 86382 M06.[address] Jenkins on [...] following with Antonio Sepulveda. Psoriatic arthritis 1563 99316 L40.50 see RA Coronary atherosclerosis 095122043 I25.10 04/21/17 LDL 63. Continue pravastati n. NO asa - risks outweight benefits d/t hx of stomach ulcers. Patient agrees with plan. CT chest In November w/ Mild atheroscle rosis of coronary arteries. She continues on pravastati n 40 mg daily. Aspirin is currently on hold. Vitamin D deficiency 347 73694 E55.9 2015 Level was 10 at the [...] and repeat in July. Cobalamin deficiency 190 481769 E53.8 04/21/17 Level currently 279. Increase supp to total of b12 1,000 mcg daily. Recheck in July. Adult heal th examination 159423311 Z00.00 10 yr plan provided to patient [...] only cover every other year. Therefore due 02/24.[place] n cancer screening: Colonoscop y 10/2015 with [...] ons. Screening for malignant neoplasm of breast 508565527 Z12.31 04/21/17 Most recent mammo 02/22 and negative. She declines this year stating she cannot afford b/c insurance will only cover every other year. Screening for malignant neoplasm of colon 555010902 Z12.11 04/21/17 Colonoscop y 10/2015 with diverticul a, left side, hyperplast ic polyp x 4, was told screening no longer indicated. Hypomagnesemia 039023049 E83.42 04/21/17 2.1. Continue mag ox 400 mg daily. At [facility] risk for falls 529845011 Z91.81 Does have cane and walker, hospital bed w/rails, handle bars in shower. Care instructio ns for preventing falls discussed. She declines any further assistance at home. Overweight 738004199 E66 .3 She is just over cusp of normal bmi. Difficult to tolerate exercise d/t joint pain. Continue efforts towards healthy diet. Osteoporosis 73085767 M8 1.0 04/21/17 Tolerating Fosamax w/out issues. BMD due 2018.02/27 BMD w/Severe osteoporos is. 04/09/16 starting fosamax. Constipation 86194270 K5 9.00 Secondary to iron use. Controlled . Continue colace one cap daily. Ulcer 563778279 L98.9 Accountabl e to iron def per Dr. Almonte. Continue to avoid NSAIDS including asa. Continue omeprazole 20 mg daily. Refer back to Dr. Almonte with any changes. Continue to monitor. see cbc/iron. Chronic rhinitis 0479672 6 J31.0 Continue nasal steroid prn. Congestion [...] 1 [facility] MEDICARE COMPLETE CHOICE (MEDICARE REPLACEMENT PPO) [id number] [id number] [facility] [place] 12/23/2016 1 [facility] MEDICARE COMPLETE CHOICE (MEDICARE REPLACEMENT PPO) [id number] [address] [id number] Y[place] A [place] 01/01/2017 1 [facility] MEDICARE COMPLETE CHOICE (MEDICARE REPLACEMENT PPO) [id number] [address] [id number] Yoli A [place] 02/04/2017 1 [facility] - MEDICARE COMPLETE CHOICE (MEDICARE REPLACEMENT PPO) [id number] Yoli [address] [id number] Yoli A [place] 04/21/2017 1 [facility] MEDICARE COMPLETE CHOICE (MEDICARE REPLACEMENT PPO) [id number] [address] [id number] Yoli A [place] Notes Date Note Type Note Provider Name and Address Organization Details Recorded Time 11/16/2016 text/html Patient presents today to follow up multiple issues. Her last visit was in July. She has a history of psoriatic/rheumatoi d arthritis and she has been following with Dr. Jenkins in [place], [place]. She was started on methotrexate 2.5 [...] I encouraged her to f/u with her computing consultant, Dr. Almonte, but she presents today stating [...] well controlled with colace prn. Maddison Ta, [address], [phone], [facility] - [employer] [facility] 11/16/2016 14:21:27 12/23/2016 text/html Patient presents today to follow-up multiple ER visits, and hospital admission to [facility] December 01 through December 07 for multiple rib fractures after a fall. She was also diagnosed with pneumonia. She was discharged home with [facility]. She was scheduled for a follow-up [...] 6h prn. She presents today with her [id number]. She states pain persists but trying to [...] in the hospital as well. Staying with [id number]. is at home attempting to recover on [...] pain, palpitations, nausea, bowel/bladder problems. Maddison Ta, [employer] [address] [facility], [place], [address], [facility] - [employer] 12/26/2016 10:34:54 01/01/2017 text/html Presents today [...] did sleep well last night. Maddison Ta, [employer]PER[employer] [address] [facility], [place], [address], [facility] [employer] 01/04/2017 19:20:48 02/04/2017 text/html I saw her on Dec and sent her to the ER after she presented at 5:00 on Wednesday with acute onset of left lower extremity swelling and pain. She had a recent history of pneumonia and rib fractures with intermittent shortness of breath as well. She was going to go to the ER in [place]. However, I had not received any notes. [...] trying not to take them. Maddison Ta, [facility] [address] [facility], [place], [address], [facility] - [employer] [facility] 02/04/2017 19:08:22 04/21/2017 text/html [...] a week. Transferred care to Antonio Sepulveda. AVELINO LeavittP [address] [facility], [place], [address], [facility] - [employer] [facility] 04/24/2017 11:48:10 OBGyn Episode No OBEpisode recorded.
--- OUTSIDE RECORDS SUMMARY | 2024-09-11 11:00 | XMS_ITS | Encounter Summary ---
Author Organization [employer] [facility] Address [address] [place] [address] Care Team Providers Care Electronic Repair Troubleshooter Name Role Phone John Diamond MD Primary Care Provide r Unavailable Jennifer Bhagat MD Primary Care Provider Unavailabl e [facility], Pcp Primary Care Provider Unavailabl e Encounter Details Date Type Department Care Team Description 05/05/2019 Carry Out Clerk Report Medical Records [address] [place] [id number] Yara Hoffman NP Social History Tobacco Use [...] on filedocumented in this encounter Care Teams Electronic Repair Troubleshooter Relationship Specialty Start Date End Date John Diamond MD PCP - General Internal Medicine 01/03/19 Jennifer Bhagat MD PCP - General Anesthesiology 10/31/20 10/31/20 [facility], Pcp PCP - General Internal Medicine 03/21/21 documented as of this encounter
--- OUTSIDE RECORDS SUMMARY | 2024-09-11 11:00 | XMS_ITS | Encounter Summary ---
Author Organization [facility] Address [address] [place] [address] Care Team Providers Care Tentering Machine Off Bearer Name Role Phone Katherine Catherine Primary Care Provider John Ayala MD Primary Care Provide r Unavailable Jennifer Bhagat MD Primary Care Provider Unavailabl e [facility], Pcp Primary Care Provider Unavailabl e Encounter Details Date Type Department Care Team Description 12/07/2018 [facility] Medical Records [address] [place] [address] Derick Michelle MD Social History Tobacco Use [...] on filedocumented in this encounter Care Teams Tentering Machine Off Bearer Relationship Specialty Start Date End Date Katherine Catherine PCP - General Internal Medicine 04/20/18 01/02/19 John Diamond MD PCP - General Internal Medicine 01/03/19 Jennifer Bhagat MD PCP - General Anesthesiology 10/31/20 10/31/20 [facility], Pcp PCP - General Internal Medicine 03/21/21 documented as of this encounter
[2024-09-11 11:47] LABS: Erythrocyte Sedimentation Rate 92 MM/HR (0-20)
[2024-09-11 12:21] LABS: HBc Num1 0.11 S/CO (0.00-0.79); HBsAGNum1 0.31 S/CO (0.00-0.99); Hepatitis A Antibody IgM 0.74 Index (0-0.79); Hepatitis B Core Antibody Nonreactive (Nonreactive); Hepatitis B Surface Antigen Negative (Negative); ~HepC Num1 0.09 S/CO (0.00-0.79); ~Hepatitis A Antibody IgM Nonreactive (Nonreactive); ~Hepatitis B Surface Antibody NONREACTIVE (Nonreactive); ~Hepatitis C Antibody Nonreactive (Nonreactive)
[2024-09-11 12:22] LABS: Alanine Aminotransferase 9 U/L (0-31); Albumin Level 3.7 g/dL (3.5-5.0); Alkaline Phosphatase 68 U/L (39-117); Anion Gap 13 (12-20); Aspartate Amino Transferase 18 U/L (5-31); Bilirubin Total 0.3 mg/dL (0.0-1.0); Blood Urea Nitrogen 16 mg/dL (9-16); C Reactive Protein 2.98 mg/dL (< or = 0.50); Calcium 9.1 mg/dL (8.4-10.2); Carbon Dioxide 25 mmol/L (22-29); Chloride 103 mmol/L (96-108); Estimated Glomerular Filt Rate > 60; Glucose Random 87 mg/dL (60-115); Potassium 4.2 mmol/L (3.3-5.1); Sodium 137 mmol/L (135-145); Total Protein 7.4 g/dL (6.5-8.0)
[2024-09-14 12:58] LABS: TS Negative Control Passed; TS Panel A 0; TS Panel B 0; TS Positive Control Passed; TSpotTB Negative (Negative)
[2024-09-15 15:08] LABS: Vitamin D 25-OH, D2 5 ng/mL; Vitamin D 25-OH, D3 20 ng/mL; Vitamin D 25-OH, Total 25 ng/mL (30-100)
== END 2024-09-11 09:53 | disposition home or self-care (01) ==
LOC: HO.LAB 09:52
PROVIDERS: Absent Provider Student in an Organized Health Care Education/Training Program; PCP Physician Assistant; Visit Provider Physician Assistant
DX: M11.89 Other specified crystal arthropathies, multiple sites (principal); E55.9 Vitamin D deficiency, unspecified
CPT/HCPCS: 36415; 80053; 82306; 85025; 85652; 86140; 86481; 86704; 86706; 86709; 86803; 87340

== ENCOUNTER 2024-09-19 10:16 | Outpatient (AMB) | payer OTHER, SELFPAY ==
--- NOTE | 2024-09-19 10:35 | A.OFFPC_ITS ---
Vital Signs 09/19/24 10:43 Height 5 ft 1 in Weight 106 lb 8 oz BMI 20.1 BP 140/74 H Blood Pressure Location Lt brachial Position Sitting Pulse 92 Pulse Source Pulse Oximeter Temp 97.1 F Temp Source Temporal Artery Scan Pulse Oximetry (%) 100 Oxygen Delivery Method Room Air Intake Visit Reasons: Annual Exam Tobacco Educator Required: No Accompanied by: Self / Same As Patient Allergies oxycodone [From OxyContin] Allergy (Mild, Verified 09/19/24 12:49) Hives Primeperole Allergy (Mild, Uncoded 09/19/24 11:13) Hives & Swollen legs Medication List - Last Reconciled 09/19/24 by Burke Vazquez PA-C acetaminophen 650 mg (2 x 325 mg) PO Q6H PRN albuterol sulfate 90 mcg/actuation 2 puffs inhalation Q4-6H PRN 1 month amlodipine 5 mg PO DAILY 30 days blood pressure monitor check bp twice a week and when not feeling well cetirizine (Zyrtec) 10 mg PO DAILY 30 days cholecalciferol (vitamin D3) 125 mcg PO DAILY colchicine 0.6 mg PO BID cyanocobalamin (vitamin B-12) 1,000 mcg sublingual DAILY ferrous sulfate (Feosol) 325 mg PO BID 30 days folic acid 1 mg PO DAILY hydroxychloroquine 200 mg PO DAILY omeprazole 20 mg PO DAILY pravastatin 40 mg PO DAILY 90 days ropinirole 2 mg (2 x 1 mg) PO TID Tobacco use date assessed: 05/22/24 Fall risk assessment: No Falls in past year Last assessed Fall Risk: 09/19/24 Dental Screening Dental Screen Date: 09/19/24 Did you have a dental visit in the last 12 months?: No Did you have a dental problem in the last 6 months where you did not have access to dental care?: No Was dental information given to patient?: No (no teeth) HPI Annual Exam HPI Details Patient is a 79-year-old female here today for an annual physical Previous PCP with a [facility] office.. Patient has a past medical history significant for tobacco use disorder microcytic anemia, hyperlipidemia rheumatoid arthritis with long-term use of hydroxychloroquine, restless leg syndrome and COPD. Recently admitted to [facility] for acute weakness and melanotic stool. She has found to have low hemoglobin. She did undergo a endoscopy which did find a AVMs of the small bowel. She continues on iron supplementation. We did discuss PPI therapy to which he has not been taking. Advised to start omeprazole to help reduce acid production in the GI system. .. COPD/tobacco use disorder: Patient unfortunately continues to smoke .. Rheumatoid arthritis: Patient continues to follow rheumatology at here in [place]. Continues on hydroxychloroquine with decent affect on her arthritic pain. Vaccines: Up-to-date with COVID vaccine, tetanus vaccine,up-to-date pneumonia vaccine, Considering Shingles. Laboratory Tests 11/25/23 01/20/24 03/29/24 00:39 08:51 08:30 Hgb 10.0 L D 11.2 L 9.9 L C-Reactive Protein 2.80 H 25-OH Vitamin D To mike 09/01/24 09/02/24 09/11/24 06:37 06:05 10:13 Hgb 9.3 L D 9.1 L 9.5 L C-Reactive Protein 2.98 H 25-OH Vitamin D To mike 09/11/24 10:23 Hgb C-Reactive Protein 25-OH Vitamin D To mike 25 L PFSH Medical History Pseudogout involving multiple joints Acquired telangiectasia of small and large intestines Anemia Restless leg syndrome Osteoporosis COPD (chronic obstructive pulmonary disease) Hypertension Surgical History S/P appendectomy H/O parathyroidectomy Status post hip surgery Family History Father CAD (coronary artery disease) Sister No problems noted. 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 1. Little interest or pleasure in doing things: not at all 2. Feeling down, depressed, or hopeless: not at all 3. Trouble falling or staying asleep, or sleeping too much: not at all 4. Feeling tired or having little energy: not at all 5. Poor appetite or overeating: not at all 6. Feeling bad about yourself - or that you are a failure or have let yourself or your family down: not at all 7. Trouble concentrating on things, such as reading the newspaper or watching television: not at all 8. Moving or speaking so slowly that other people could have noticed. Or the opposite - being so fidgety or restless that you have been moving around a lot more than usual: not at all 9. Thoughts that you would be better off or of hurting yourself in some way: not at all Total score: 0 Depression Screening Interpretation: Negative Depression Screening Done: Yes 02660 - PHQ-9 Billing: Yes Source: Developed by Drs. Mesfin Singh, Raiza Ortega, Naga Das and colleagues, with an educational silvestre from [employer]. Thrive Questionnaire Date Thrive assessed: 09/19/24 I am a: Patient What is your living situation today?: I have a steady place to live Within the past 12 months, did the food you bought not last and you didn't have the money to get more?: Sometimes True Within the past 12 months, did you worry whether your food would run out before you got money to buy more?: Sometimes True Do you have trouble paying for medicines?: Yes Do you have trouble getting transportation to medical appointments?: No Do you have trouble paying your heating and electricity bill?: No Do you have trouble taking care of your child, family member or friend?: No Do you have trouble with day-to-day activities such as bathing, preparing meals, shopping, managing finances, etc.?: No Are you currently unemployed and looking for a job?: No Are you interested in more education?: No Please select the resources that you would like help with: None Currently or been in a relationship where the following occur: I choose not to answer THRIVE Score: 2 AUDIT C Alcohol Use Questionnaire (AUDIT-C) 1. How often do you have a drink containing alcohol?: Never 3. How often do you have six or more drinks on one occasion?: Never Total Score: 0 MARVA-7 AMB Questionnaire MARVA-7 Date MARVA - 7 assessed: 09/19/24 Feeling nervous, anxious, or on edge: 0 = Not at all Not being able to stop or control worryin = Not at all Worrying too much about different things: 0 = Not at all Trouble relaxin = Not at all Being so restless that it is hard to sit still: 0 = Not at all Becoming easily annoyed or irritable: 0 = Not at all Feeling afraid as if something awful might happen: 0 = Not at all Total MARVA-7 score (0-4 normal; 5-9 mild; 10-14 moderate; 15-21 severe): 0 Source: Developed by Drs. Mesfin Singh, Raiza Ortega, Naga Das and colleagues, with an educational silvestre from [employer]. MARVA-7 Assessment Billing MARVA-7 Assessment Tool: MARVA-7 Assessment 46599 Review of Systems Const Denies body aches, Denies chills, Denies excessive sweating, Denies fatigue, Denies fever(s) and Denies headache(s) Eyes Denies blurry vision ENT Denies dysphagia, Denies vertigo, Denies dizziness, Denies headache(s), Denies hearing loss and Denies tinnitus Card Denies chest pain, Denies chest pain with activity, Denies syncope, Denies irregular heart rhythm and Denies dyspnea Resp Denies chest congestion, Denies cough, Denies hemoptysis, Denies dyspnea and Denies wheezing GI Denies abdominal pain, Denies melena, Denies hematochezia, Denies coffee ground emesis, Denies dysphagia, Denies diarrhea, Denies nausea and Denies vomiting Denies urinary frequency, Denies dysuria, Denies urinary hesitancy and Denies urinary urgency Musc Denies arthralgias, Denies limited range of motion, Denies muscle cramps and Denies muscle weakness Skin/Breast Denies rash and Denies skin ulcer Neuro Denies Abnormal speech present, Denies confusion, Denies vertigo, Denies dizziness, Denies syncope, Denies headache(s), Denies memory loss and Denies seizure-like activity Psych Denies anxiety, Denies confusion, Denies depression, Denies memory loss, Denies panic attacks and Denies paranoia Endo Denies excessive sweating, Denies fatigue, Denies flushing, Denies polydipsia and Denies polyuria Aller/Immun Denies wheezing Physical exam (Primary Care) Vital Signs: Last Vital Signs Temp 97.1 F 09/19/24 10:43 Pulse 92 09/19/24 10:43 BP 140/74 H 09/19/24 10:43 Pulse Ox 100 09/19/24 10:43 Oxygen Delivery Method Room Air 09/19/24 10:43 BMI result Body Mass Index 20.1 Tobacco/Smoking Status: Tobacco use Status Tobacco use date assessed 05/22/24 09/19/24 10:35 Patient Tobacco Use Status Current everyday Tobacco 09/19/24 10:35 Tobacco use type Cigarette 09/19/24 10:35 e-Cigarette/Vaping Use Currently Using 09/19/24 10:35 PHQ-9: PHQ-9 Score PHQ-9: Total score 0 09/19/24 11:15 Depression Screening Interpretation: Negative Thrive Assessment: Date of Thrive Assessment Date Thrive assessed 09/19/24 09/19/24 10:38 Currently or been in a relationship where the following occur: I choose not to answer Const General: cooperative, comfortable, no acute distress, alert and awake; No confusion Orientation/consciousness: oriented to person, oriented to place, patient oriented x3 and No confusion HENMT Head: Yes normocephalic Ears: external ears normal and TM's normal bilaterally Face and sinus: No sinus tenderness Mouth: Normal oral and palatal mucosa present and tongue normal Teeth and gingiva: dentition normal and gingiva normal Throat: Yes posterior oropharynx normal, Yes tonsils normal and Yes uvula midline Eyes Conjunctivae: conjunctivae normal Sclerae: sclerae normal Pupils: Equal, round and reactive pupils present EOM: EOMs intact bilaterally Direct Ophthalmoscopy: No no photophobia Neck Neck: Yes no lymphadenopathy, No tender and Yes no JVD Thyroid: Thyroid normal Carotids: no bruits Chest Chest palpation & inspection: no tenderness Resp Effort & Inspection: normal respiratory effort, no audible wheezes, not labored and no stridor Auscultation: no crackles, no rales, no rhonchi and no wheezes Cardio Jugular venous distension: no JVD Rate: regular rate, not bradycardic and not tachycardic Rhythm: regular rhythm Bruits: no carotid bruits Peripheral pulses: Peripheral pulses 2+ throughout GI Inspection: Yes normal to inspection, No abdominal wall ecchymosis and No visible herniation Palpation (GI): Soft to palpation, nontender, no guarding, not rigid and No hepatosplenomegaly present Auscultation: normoactive bowel sounds General: Yes no CVA tenderness Back/Spine/Pelvis Back: no CVA tenderness and No back tenderness Cervical Spine: cervical ROM normal Thoracic/Lumbar Spine: thoracic and lumbar spine normal to inspection, straight leg raise negative bilaterally, No thoraco-lumbar ROM limited and No lumbar spinal tenderness Skin Lesions: no lesions Rashes: no rashes Wounds: no wounds Neuro General: oriented to person, oriented to place, patient oriented x3, CN's II-XI intact bilaterally and No confusion Cranial nerves: Yes Equal, round and reactive pupils present and Yes Normal accommodation reflex present Cognition (Neuro): normal cognition Speech: No Abnormal speech present Gait exam (Neuro): Normal gait present Motor exam (neuro): 5/5 motor strength present throughout Extrem Right upper extremity: full ROM; no cyanosis Left upper extremity: full ROM; no cyanosis Right lower extremity: no edema Left lower extremity: no edema Psych Appearance: grossly normal Mental Status: mental status grossly normal Affect: normal affect Attitude: cooperative Thought process: Normal thought process present Coding Level of Care Code Est Pt Prev Care >65y(77054) Diagnoses Annual physical exam Z00.00 Upper gastrointestinal bleeding K92.2 Mixed hyperlipidemia E78.2 Hyperlipidemia type: mixed hyperlipidemia Centrilobular emphysema J43.2 COPD type: emphysema Emphysema type: centrilobular Primary hypertension I10 Hypertension type: primary hypertension Iron deficiency anemia, unspecified iron deficiency anemia type D50.9 Iron deficiency anemia type: unspecified iron deficiency Cigarette nicotine dependence without complication F17.210 Nicotine product type: cigarettes Substance use status: uncomplicated Rheumatoid arthritis involving multiple sites with positive rheumatoid factor M05.79 Rheumatoid arthritis location: multiple sites Rheumatoid factor presence: with rheumatoid factor Additional Codes MARVA-7 Assessment Billing - MARVA-7 Assessment Tool: MARVA-7 Assessment 51061 ([id number]) PHQ-9 - 28663 - PHQ-9 Billing: Yes ([id number]) Assessment & Plan Assessment & Plan (1) Annual physical exam: Code(s): Z00.00 - Encounter for general adult medical examination without abnormal findings Category: Medical Plan: As per HPI (2) Upper gastrointestinal bleeding: Code(s): K92.2 - Gastrointestinal hemorrhage, unspecified Category: Medical Plan: Patient underwent endoscopy apparently has AVMs in her small intestine that intermittently bleed. She does report having episodes of acute anemia and melenic stools over the last 2 years. She will continue with PPI therapy and iron supplementation for now. We did discuss getting established with a tap grinder to perhaps to ablation treatment on her AVMs though she declines at this time. (3) Hyperlipidemia: Code(s): E78.5 - Hyperlipidemia, unspecified Category: Medical Qualifiers: Hyperlipidemia type: mixed hyperlipidemia Qualified Code(s): E78.2 - Mixed hyperlipidemia Plan: Patient continues on statin therapy. She reports she has never fasting for labs before. Advised to do fasting labs to ensure appropriate total cholesterol and LDL. Goal LDL to be below 130 (4) COPD (chronic obstructive pulmonary disease): Comment: Smoker, strong tobacco Code(s): J44.9 - Chronic obstructive pulmonary disease, unspecified Category: Medical Qualifiers: COPD type: emphysema Emphysema type: centrilobular Qualified Code(s): J43.2 - Centrilobular emphysema Plan: Patient reports her breathing has been fairly stable. Does use her albuterol inhaler at times. She denies using a maintenance inhaler. Unfortunately continues to smoke and has no thoughts about quitting. Offered her nicotine replacement though she declines at this time. We did discuss perhaps going to see lung cancer screening program though she declines at this time. (5) Hypertension: Code(s): I10 - Essential (primary) hypertension Category: Medical Qualifiers: Hypertension type: primary hypertension Qualified Code(s): I10 - Essential (primary) hypertension Plan: Patient's blood pressure acceptable today in office. Will continue her current dose of antihypertensive medication. Does not monitor her blood pressure at home. (6) Iron deficiency anemia: Code(s): D50.9 - Iron deficiency anemia, unspecified Category: Medical Qualifiers: Iron deficiency anemia type: unspecified iron deficiency Qualified Code(s): D50.9 - Iron deficiency anemia, unspecified Plan: As per HPI unclear etiology likely secondary to intermittent upper GI bleeding due to her noted AVMs in her small bowel. Did discuss getting set up with Gastroenterology for possible more definitive treatment for the AVMs though she declines at this time. (7) Nicotine dependence: Code(s): F17.200 - Nicotine dependence, unspecified, uncomplicated Category: Medical Qualifiers: Nicotine product type: cigarettes Substance use status: uncomplicated Qualified Code(s): F17.210 - Nicotine dependence, cigarettes, uncomplicated Plan: As per HPI patient continues to smoke a few cigarettes per day. Not interested in quitting smoking at this time. Offered her nicotine replacement though she declines. (8) Rheumatoid arthritis: Comment: +++CCP +++RF dx around 2011 on MTX throughout (partially effective). DC in 2023 HCQ 12/2022 minimally effective Code(s): M06.9 - Rheumatoid arthritis, unspecified Category: Medical Qualifiers: Rheumatoid arthritis location: multiple sites Rheumatoid factor presence: with rheumatoid factor Qualified Code(s): M05.79 - Rheumatoid arthritis with rheumatoid factor of multiple sites without organ or systems involvement Plan: Patient followed by [place] rheumatology. Continues on penitentiary hydroxychloroquine use and p.r.n. use of Tylenol. Medications: Changed From omeprazole 20 mg PO DAILY 30 caps 3RF K92.2 - Gastrointestinal hemorrhage, unspecified To omeprazole 20 mg PO DAILY 90 days 90 caps 3RF K92.2 - Gastrointestinal hemorrhage, unspecified From amlodipine 5 mg PO DAILY 30 days 30 tabs 3RF I10 - Essential (primary) hypertension To amlodipine 5 mg PO DAILY 90 days 90 tabs 3RF I10 - Essential (primary) hypertension Refilled ropinirole 2 mg (2 x 1 mg) PO TID 90 tabs 1RF G25.81 - Restless legs syndrome pravastatin 40 mg PO DAILY 90 tabs 1RF 90 days
[2024-09-19 10:43] VITALS: BP 140/74; PULSE 92; TEMP 36.2; O2SAT 100; BMI 20.1
--- OUTSIDE RECORDS SUMMARY | 2024-09-19 11:22 | XMS_ITS | Encounter Summary ---
Author Organization [employer] [facility] Address [address] [place] [address] Care Team Providers Care Manager Inspection Name Role Phone John Diamond MD Primary Care Provide r Unavailable Jennifer Bhagat MD Primary Care Provider Unavailabl e [facility], Pcp Primary Care Provider Unavailabl e Encounter Details Date Type Department Care Team Description 07/06/2019 Orders Only Rheumatology - [address] [address] Bradford Bales PA Social History Tobacco Use [...] on filedocumented in this encounter Care Teams Manager Inspection Relationship Specialty Start Date End Date John Diamond MD PCP - General Internal Medicine 01/03/19 Jennifer Bhagat MD PCP - General Anesthesiology 10/31/20 10/31/20 [facility], Pcp PCP - General Internal Medicine 03/21/21 documented as of this encounter
--- OUTSIDE RECORDS SUMMARY | 2024-09-19 11:22 | XMS_ITS | Encounter Summary ---
Author Organization [facility] Address [address] [place] [address] Care Team Providers Care Wood Machine Carver Name Role Phone John Diamond MD Primary Care Provide r Jennifer Winchester MD Primary Care Provider Unavailabl e [facility], Pcp Primary Care Provider Unavailabl e Reason for Visit * Reason Onset Date Comments TEST RESULTS 02/22/2020 Encounter Details Date Type Department Care Team Description 02/22/2020 Telephone Adult Medicine [address] [address] John Diamond MD TEST RESULTS Social History [...] mail . * Telephone Encounter - Danette oD M.A. - 02/22/2020 1:15 PM EDT Paula-I talked wit her today she said it was a home fax , I thought. As far as I know we cannot faxwithout an MISA. I will call her back. Maybe someone on verbal can cigar packer and picker a copy. thanks * Telephone Encounter - Devika Dudley PA-C - 02/22/2020 12:34 PM EDT The results were mailed to her home. There is already a letter in the computer. Are we able to fax this without MISA? * Telephone Encounter - Slime Herring - 02/22/2020 10:02 AM EDT Pt would like test results for covid [facility] pt hasnt seen son cannot see son without results Fax documented in this encounter Plan of Treatment Not on file documented as of this encounter Visit Diagnoses Not on filedocumented in this encounter Care Teams Wood Machine Carver Relationship Specialty Start Date End Date John Diamond MD PCP - General Internal Medicine 01/03/19 Jennifer Bhagat MD PCP - General Anesthesiology 10/31/20 10/31/20 [facility], Pcp PCP - General Internal Medicine 03/21/21 documented as of this encounter
--- OUTSIDE RECORDS SUMMARY | 2024-09-19 11:22 | XMS_ITS | Encounter Summary ---
Author Organization [facility] Address [address] [place] [address] Care Team Providers Care Annual Giving Director Name Role Phone John Diamond MD Primary Care Provide r Unavailable Jennifer Bhagat MD Primary Care Provider Unavailabl e [facility], Pcp Primary Care Provider Unavailabl e Reason for Visit * Reason Comments E-prescribe Rx Request Encounter Details Date Type Department Care Team Description 07/06/2019 Refill Rheumatology [address] [address] Bradford Bales PA E-prescribe Rx Request Social History Tobacco Use [...] Telephone Encounter - Soheila Crawford M.A. - 07/10/2019 2:31 PM EST Telephone Information: Detailed voicemail left regarding message below. * Telephone Encounter - Soheila Crawford M.A. - 07/06/2019 3:54 PM EST Left voicemail asking to return call. Faxed to pharmacy * Telephone Encounter - Bradford Bales PA-C - 07/06/2019 12:30 PM EST Discussed with Dr. Renae. She was recently hospitalized and received transfusion for her iron deficiency anemia felt to be related to gastritis. We will continue with methotrexate for now. She is currently on alendronate that was started for hypercalcemia, recent hip fracture, and severe osteoporosis. Rankin, Please call patient and let her know that she can continue with the methotrexate and should stop the alendronate. We can review this further at the scheduled follow-up visit with me on 07/19/2019. Thank you. * Telephone Encounter - Soheila Crawford M.A. - 07/06/2019 10:08 AM EST Last Appt: 05/17 Next visit: 07/18 Lab Results Component Value Date WBC 9.1 06/15/2019 HGB 7.4 06/15/2019 HCT 25.3 06/15/2019 MCV 88.5 06/15/2019 PLTCT 701 06/15/2019 Lab Results Component Value Date ALB 3.9 02/22/2019 SGOT 13 05/17/2019 SGPT 14 05/17/2019 TBILI 0.3 02/22/2019 ALKPHOS 86 02/22/2019 TP 7.4 02/22/2019 Lab Results Component Value Date 25OHD 35 05/18/2019 * Telephone Encounter - Lissy Mccarty - 07/06/2019 8:56 AM EST Refill request. documented in this encounter Plan of Treatment Not on file documented as of this encounter Visit Diagnoses Not on filedocumented in this encounter Care Teams Annual Giving Director Relationship Specialty Start Date End Date John Diamond MD PCP - General Internal Medicine 01/03/19 Jennfier Bhagat MD PCP - General Anesthesiology 10/31/20 10/31/20 [facility], Pcp PCP - General Internal Medicine 03/21/21 documented as of this encounter
--- OUTSIDE RECORDS SUMMARY | 2024-09-19 11:23 | XMS_ITS | Encounter Summary ---
Author Organization [employer] [facility] Address [address] [place] [address] Care Team Providers Care Salesperson Art Objects Name Role Phone John Diamond MD Primary Care Provide r Unavailable Jennifer Bhagat MD Primary Care Provider Unavailabl e [facility], Pcp Primary Care Provider Unavailabl e Encounter Details Date Type Department Care Team Description 10/05/2019 Forestry Laborer Report Medical Records [address] [place] [id number] Carlos Orr MD Social History Tobacco Use Types Packs/Day [...] filedocumented in this encounter Care Teams Salesperson Art Objects Relationship Specialty Start Date End Date John Diamond MD PCP - General Internal Medicine 01/03/19 Jennifer Bhagat MD PCP - General Anesthesiology 10/31/20 10/31/20 [facility], Pcp PCP - General Internal Medicine 03/21/21 documented as of this encounter
--- OUTSIDE RECORDS SUMMARY | 2024-09-19 11:23 | XMS_ITS | Encounter Summary ---
Author Organization [employer] [facility] Address [address] [place] [address] Care Team Providers Care Engineering Project Designer Name Role Phone John Diamond MD Primary Care Provide r Unavailable Jennifer Bhagat MD Primary Care Provider Unavailabl e [facility], Pcp Primary Care Provider Unavailabl e Encounter Details Date Type Department Care Team Description 05/05/2019 Staff Development Manager Report Medical Records [address] [place] [id number] Yara Hoffman NP Social History Tobacco Use [...] on filedocumented in this encounter Care Teams Engineering Project Designer Relationship Specialty Start Date End Date John Diamond MD PCP - General Internal Medicine 01/03/19 Jennifer Bhagat MD PCP - General Anesthesiology 10/31/20 10/31/20 [facility], Pcp PCP - General Internal Medicine 03/21/21 documented as of this encounter
--- OUTSIDE RECORDS SUMMARY | 2024-09-19 11:23 | XMS_ITS | Encounter Summary ---
Author Organization [facility] Address [address] [place] [address] Care Team Providers Care Cosmetology Instructor Name Role Phone Jennifer Bhagat MD Primary Care Provider Unavailabl e [facility], Pcp Primary Care Provider Unavailabl e Encounter Details Date Type Department Care Team Description 10/31/2020 Telephone [facility] - [address] [address] Bradford Bales PA Social History Tobacco Use [...] on filedocumented in this encounter Care Teams Cosmetology Instructor Relationship Specialty Start Date End Date Jennifer Bhagat MD PCP - General Anesthesiology 10/31/20 10/31/20 [facility], Pcp PCP - General Internal Medicine 03/21/21 documented as of this encounter
--- OUTSIDE RECORDS SUMMARY | 2024-09-19 11:23 | XMS_ITS | Data Portability ---
Author Organization [place] - On License Of [facility], [facility] [employer] Address [address] [place] [address] Care Team Providers Care Inventory Control Planner Name Role Phone MADDISON TA Primary Care Provider TARIQ Lilly Shoe Singer [phone] Assessment Encounter Date Assessment Date Assessment LastModified by Organization Details LastModified Time 11/16/2016 11/16/2016 She will have labs for iron def in Jan which will be half way to her [facility] in April. She is seeing Dr. Arora at the end of February. [email or web address] Not available 11/16/2016 14:20:50 12/23/2016 12/23/2016 F/u next month for general f/u, PFTs, and f/u from 11/16/16 visit. [email or web address] Not available 12/26/2016 10:34:13 01/01/2017 01/01/2017 5 pm on Wednesday, sending to ER (she refuses to go here, going to [place]) need to r/o PE/DVT w/hx of RA/PsA, recent PNA/rib fx's with intermittent shortness of breath and acute onset of LLE swelling and pain. [email or web address] Not available 01/01/2017 16:53:52 Plan of Treatment Reminders Order Date Submit Date Provider Last Modified By Organization Details Last Modified Time Details Appointments None recorded. Lab BMP, serum or plasma [address], [address] [place], [address], 8 15:20:38 vitamin D, 25-hydroxy , total, serum [address], [address] [place], [address], 8 15:20:38 CBC [address], [address] [facility] [place], [address], 8 15:20:38 iron + total iron-parish ng capacity (TIBC), serum [address], 19 [facility] [place], [address], 8 15:20:38 vitamin B12, serum [address], 19 [facility] [place], [address], 8 15:20:38 PTH (parathyro id hormone), intact, serum or plasma [address], 19 [facility] [place], [address], 7 09:30:14 vitamin D, 25-hydroxy , total, serum [address], [address] [facility] [place], [address], 7 09:30:14 vitamin B12, serum [address], 19 [facility] [place], [address], 8 11:04:06 PTH (parathyro id hormone), intact, serum or plasma 2016 017 [facility] [address] [facility] [address], 7 14:32:23 magnesium, serum or plasma 2016 017 [facility] [address] [facility] [place], [address], 7 14:42:40 lipid panel, serum 2016 017 [facility] [address] [place], [address], 7 14:42:41 vitamin D, 25-hydroxy , total, serum 2016 017 [facility] [address] [place], [address], 7 14:42:45 CMP, serum or plasma 2016 017 [facility] [address] [place], [address], 7 14:42:38 vitamin B12, serum 2016 017 [facility] [address] [place], [address], 7 14:42:44 CBC 2016 017 [facility] [address] [place], [address], 7 13:27:32 iron + total iron-parish ng capacity (TIBC), serum 2016 017 [facility] [address] [place], [address], 7 13:36:43 CBC 2016 017 [facility] [address] [place], [address], 7 13:08:14 iron + total iron-parish ng capacity (TIBC), serum 2016 017 [facility] [address] [place], [address], 7 14:42:42 Referral endocrinol ogy referral - [place] office Please [address] -Endocrinolog y, [address], [place], [address], 8 13:57:18 Procedures None recorded. Surgeries None recorded. Imaging CT, chest, w/o contrast - f/u previous abnormalit ies [address] (Central Scheduling), [address] [place], [address], 7 20:03:06 US, echocardio gram 2016 017 [facility] (Central Scheduling), [address] [facility], [place], [address], 7 14:42:58 Medication Orders cyanocobal haney (vit B-12) 1,000 mcg tablet 2016 017 [facility], [address] [place], [address], 7 09:54:27 pramipexol e 0.125 mg tablet [address] [facility], [address] [place], [address], 7 19:33:09 Sarna Original 0.5 %-0.5 % lotion 2016 017 INTERFACE [facility], [address] [place], [address], 7 18:03:30 albuterol sulfate HFA 90 mcg/actuat ion aerosol inhaler 2016 017 INTERFACE [facility], [address] [facility], [place], [address], 7 09:11:34 Fosamax 70 mg tablet 2016 017 [facility], [address] [place] [address], [id number], 7 08:53:21 omeprazole 20 mg capsule,de layed release 2016 017 INTERFACE [facility], [facility] [address], [place] [address], [place], [place], [id number], 7 10:10:07 Patient TargetsNo targets recorded. Patient Instructions Encounter Date Encounter Id Patient Instructions Last Modified By Organization Details Last Modified Time 02/04/2017 [id number] spirometry testing* ADAM Not available 02/05/2017 09:22:28 04/21/2017 [id number] heart-healthy diet: care instructions [email or web address] Not available 04/24/2017 11:28:03 A healthy heart: care instructions Not available 04/24/2017 11:28:03 preventing falls : care instructions [email or web address] Not available 04/24/2017 11:28:03 A healthy lifestyle: care instructions [email or web address] Not available 04/24/2017 11:28:03 Reason for Referral [facility] Referring [facility]ician: Maddison Ta, Family Medicine, Encounter Date: 04/21/2017 Results Created Date Observation Date Name Description Value Unit Range Abnormal Flag Note LastModifiedBy Organization Detail LastModifiedTime 02/05/20 17 02/05/2017 tomeka metry testi ng* Spirometry Not Available In-Offi ce Order Internal Use Only DO Not Attach Compendium DO Not Attach Compendium, Do Not Delete/merge, [id number] 02/04/2017 16:21:40 11/10/19 17 11/09/2016 iron + total iron- parish ng capac ity (TIBC ), serum iron 53 ug/dL 40-175 normal Not Available [address] [place] [address], [address], 11/09/2016 16:45:41 11/10/19 17 11/09/2016 iron + total iron- parish ng capac ity (TIBC ), serum transferrin 278 mg/dL 200-36 0 normal Effec tive 5: Pleas e note the refer ence range for this test has duarte ed. Not Available [address] [place] [address], 29[address], 11/09/2016 16:45:41 11/10/19 17 11/09/2016 iron + total iron- praish ng capac ity (TIBC ), serum iron binding 363 ug/dL 250-40 0 normal Not Available [address] [place] [address], 50034, 11/09/2016 16:45:41 11/10/19 17 11/09/2016 iron + total iron- parish ng capac ity (TIBC ), serum iron saturation 15 % 16-55 low Not Available [address] [place] [address], 89[address], 11/09/2016 16:45:41 11/10/19 17 11/09/2016 iron + total iron- parish ng capac ity (TIBC ), serum ferritin 26 NG/mL 8-252 normal Peyton tin value s are age depen dent and can vary depen ding on menop ausal statu s. Not Available [address] [place] [address], 104[address], 11/09/2016 16:45:41 11/10/19 17 11/09/2016 CBC WBC count 4.62 K/mm3 4.0-11 .0 normal Not Available [address] [place] [address], 17272, 11/09/2016 19:09:35 11/10/19 17 11/09/2016 CBC red blood cell count 3.99 M/uL 4.00-5 .20 low Not Available [address] [place] [address], 73656, 11/09/2016 19:09:35 11/10/19 17 11/09/2016 CBC hemoglobin 10.4 gm/dL 12.0-1 6.0 low Not Available [address] [place] [address], 50248, 11/09/2016 19:09:35 11/10/19 17 11/09/2016 CBC hematocrit 36.4 % 36.0-4 6.0 normal Not Available [address] [place] [address], 12814, 11/09/2016 19:09:35 11/10/19 17 11/09/2016 CBC MCV 91.2 fL 86-99 normal Not Available [address] [place] [address], 55403, 11/09/2016 19:09:35 11/10/19 17 11/09/2016 CBC RDW 17.8 % 11.5-1 6.0 high Not Available [address] [place] [address], 94424, 11/09/2016 19:09:35 11/10/19 17 11/09/2016 CBC plt count 590 K/uL 140-44 0 high Not Available [address] [place] [address], 81050, 11/09/2016 19:09:35 11/10/19 17 11/09/2016 CBC NRBC% 0.0 % 0-0.2 normal Not Available [address] [place] [address], 76784, 11/09/2016 19:09:35 11/10/19 17 11/09/2016 CBC ne# 2.81 K/uL 1.5-7. 5 normal Not Available [address] [place] [address], 51207, 11/09/2016 19:09:35 11/10/19 17 11/09/2016 CBC ly# 1.33 K/uL 1.0-4. 5 normal Not Available [address] [place] [address], 78009, 11/09/2016 19:09:35 11/10/19 17 11/09/2016 CBC MO# 0.38 K/uL 0.0-0. 8 normal Not Available [address] [place] [address], 61879, 11/09/2016 19:09:35 11/10/19 17 11/09/2016 CBC eo# 0.04 K/uL 0.0-0. 4 normal Not Available [address] [place] [address], 99374, 11/09/2016 19:09:35 11/10/19 17 11/09/2016 CBC ba# 0.04 K/uL 0.0-0. 2 normal Not Available [address] [place] [address], 48039, 11/09/2016 19:09:35 11/10/19 17 11/09/2016 CBC Ig# 0.02 K/uL normal Not Available [address] [place] [address], 78177, 11/09/2016 19:09:35 11/10/19 17 11/09/2016 CBC ne% 60.8 % normal Not Available [address] [place] [address], 69275, 11/09/2016 19:09:35 11/10/19 17 11/09/2016 CBC ly% 28.8 % normal Not Available [address] [place] [address], 35961, 11/09/2016 19:09:35 11/10/19 17 11/09/2016 CBC MO% 8.2 % normal Not Available [address] [place] [address], 12955, 11/09/2016 19:09:35 11/10/19 17 11/09/2016 CBC eo% 0.9 % normal Not Available [address] [place] [address], 18817, 11/09/2016 19:09:35 11/10/1911/09/2016 CBC ba% 0.9 % normal Not Available [address] [place] [address], 47342, 11/09/2016 19:09:35 11/10/19 17 11/09/2016 CBC Ig% 0.4 % normal Not Available [address] [place] [address], 21661, 11/09/2016 19:09:35 11/10/19 17 11/09/2016 CBC RBC morphology REVIEW ED normal Not Available [address] [place] [address] [place] [address], 85598, 11/09/2016 19:09:35 11/10/19 17 11/09/2016 CBC plt morphology NORMAL normal Not Available [address] [place] [address], 25127, 11/09/2016 19:09:35 11/10/19 17 11/09/2016 CBC hypochromia MOD normal Not Avai lable [address] [place] [address], 38293, 11/09/2016 19:09:35 11/10/19 17 11/09/2016 CBC anisocytosis MOD normal Not Pinky ilable [address] [place] [address], 89467, 11/09/2016 19:09:35 02/04/20 17 02/03/2017 CBC WBC count 5.1 K/mm3 4.0-11 .0 normal Not Available [address] [place] [address], 95281, 02/03/2017 13:27:32 02/04/20 17 02/03/2017 CBC red blood cell count 3.97 M/uL 4.00-5 .20 low Not Available [address] [place] [address], 14480, 02/03/2017 13:27:32 02/04/20 17 02/03/2017 CBC hemoglobin 10.0 gm/dL 12.0-1 6.0 low Not Available [address] [place] [address], 07511, 02/03/2017 13:27:32 02/04/20 17 02/03/2017 CBC hematocrit 34.1 % 36.0-4 6.0 low Not Available [address] [place] [address], 91957, 02/03/2017 13:27:32 02/04/20 17 02/03/2017 CBC MCV 85.9 fL 86-99 low Not Available [address] [place] [address], 85380, 02/03/2017 13:27:32 02/04/20 17 02/03/2017 CBC RDW 19.0 % 11.5-1 6.0 high Not Available [address] [place] [address] [address] [place] [address], 59867, 02/03/2017 13:27:32 02/04/20 17 02/03/2017 CBC plt count 583 K/uL 140-44 0 high Not Available [address] [place] [address], 09212, 02/03/2017 13:27:32 02/04/20 17 02/03/2017 CBC NRBC% 0.0 % 0-0.2 normal Not Available [address] [place] [address], 170[address], 02/03/2017 13:27:32 02/04/20 17 02/03/2017 CBC ne# 3.22 K/uL 1.5-7. 5 normal Not Available [address] [place] [address], 27237, 02/03/2017 13:27:32 02/04/20 17 02/03/2017 CBC ly# 1.01 K/uL 1.0-4. 5 normal Not Available [address] [place] [address], 87382, 02/03/2017 13:27:32 02/04/20 17 02/03/2017 CBC MO# 0.74 K/uL 0.0-0. 8 normal Not Available [address] [place] [address], 49673, 02/03/2017 13:27:32 02/04/20 17 02/03/2017 CBC eo# 0.07 K/uL 0.0-0. 4 normal Not Available [address] [place] [address], 34241, 02/03/2017 13:27:32 02/04/20 17 02/03/2017 CBC ba# 0.03 K/uL 0.0-0. 2 normal Not Available [address] [place] [address] [place] [address], 69650, 02/03/2017 13:27:32 02/04/20 17 02/03/2017 CBC Ig# 0.01 K/uL normal Not Available [address] [place] [address], 63177, 02/03/2017 13:27:32 02/04/20 17 02/03/2017 CBC ne% 63.3 % normal Not Available [address] [place] [address], 74269, 02/03/2017 13:27:32 02/04/20 17 02/03/2017 CBC ly% 19.9 % normal Not Available [address] [place] [address], 20888, 02/03/2017 13:27:32 02/04/20 17 02/03/2017 CBC MO% 14.6 % normal Not Available [address] [place] [address], 52018, 02/03/2017 13:27:32 02/04/20 17 02/03/2017 CBC eo% 1.4 % normal Not Available [address] [place] [address], 88666, 02/03/2017 13:27:32 02/04/20 17 02/03/2017 CBC ba% 0.6 % normal Not Available [address] [place] [address], 61781, 02/03/2017 13:27:32 02/04/20 17 02/03/2017 CBC Ig% 0.2 % normal Not Available [address] [place] [address], 56851, 02/03/2017 13:27:32 02/04/20 17 02/03/2017 iron + total iron- parish ng capac ity (TIBC ), serum iron 45 ug/dL 40-175 normal Not Available [address] [place] [address], 03107, 02/03/2017 13:36:43 02/04/20 17 02/03/2017 iron + total iron- parish ng capac ity (TIBC ), serum transferrin 317 mg/dL 200-36 0 normal Effec tive 5: August melgoza note the refer ence range for this test has duarte ed. Not Available [address] [place] [address], 43397, 02/03/2017 13:36:43 02/04/20 17 02/03/2017 iron + total iron- parish ng capac ity (TIBC ), serum iron binding 411 ug/dL 250-40 0 high Not Available [address] [place] [address], 30507, 02/03/2017 13:36:43 02/04/20 17 02/03/2017 iron + total iron- parish ng capac ity (TIBC ), serum iron saturation 11 % 16-55 low Not Available [address] [place] [address] [place] [address], 09883, 02/03/2017 13:36:43 02/04/20 17 02/03/2017 iron + total iron- parish ng capac ity (TIBC ), serum ferritin 48 NG/mL 8-252 normal Peyton tin value s are age depen dent and can vary depen ding on menop ausal statu s. Not Available [address] [place] [address], 04088, 02/03/2017 13:36:43 04/13/20 17 04/13/2017 CBC WBC count 4.0 K/mm3 4.0-11 .0 normal Not Available [address] [place] [address], 73124, 04/13/2017 13:08:14 04/13/20 17 04/13/2017 CBC red blood cell count 4.57 M/uL 4.00-5 .20 normal Not Available [address] [place] [address], 38201, 04/13/2017 13:08:14 04/13/20 17 04/13/2017 CBC hemoglobin 12.0 gm/dL 12.0-1 6.0 normal Not Available [address] [place] [address] [address] [place] [address], 64450, 04/13/2017 13:08:14 04/13/20 17 04/13/2017 CBC hematocrit 40.1 % 36.0-4 6.0 normal Not Available [address] [place] [address], 60122, 04/13/2017 13:08:14 04/13/20 17 04/13/2017 CBC MCV 87.7 fL 86-99 normal Not Available [address] [place] [address], 68757, 04/13/2017 13:08:14 04/13/20 17 04/13/2017 CBC RDW 19.0 % 11.5-1 6.0 high Not Available [address] [place] [address], 65646, 04/13/2017 13:08:14 04/13/20 17 04/13/2017 CBC plt count 496 K/uL 140-44 0 high Not Available [address] [place] [address], 21668, 04/13/2017 13:08:14 04/13/20 17 04/13/2017 CBC NRBC% 0.0 % 0-0.2 normal Not Available [address] [place] [address], 18046, 04/13/2017 13:08:14 04/13/20 17 04/13/2017 CBC ne# 2.17 K/uL 1.5-7. 5 normal Not Available [address] [place] [address], 63102, 04/13/2017 13:08:14 04/13/20 17 04/13/2017 CBC ly# 1.29 K/uL 1.0-4. 5 normal Not Available [address] [place] [address], 35896, 04/13/2017 13:08:14 04/13/20 17 04/13/2017 CBC MO# 0.43 K/uL 0.0-0. 8 normal Not Available [address] [place] [address] [address] [place] [address], 72075, 04/13/2017 13:08:14 04/13/20 17 04/13/2017 CBC eo# 0.06 K/uL 0.0-0. 4 normal Not Available [address] [place] [address] [address] [place] [address], 29260, 04/13/2017 13:08:14 04/13/20 17 04/13/2017 CBC ba# 0.02 K/uL 0.0-0. 2 normal Not Available [address] [place] [address] [address] [place] [address], 67979, 04/13/2017 13:08:14 04/13/20 17 04/13/2017 CBC Ig# 0.01 K/uL normal Not Available [address] [place] [address] [address] [place] [address], 78643, 04/13/2017 13:08:14 04/13/20 17 04/13/2017 CBC ne% 54.5 % normal Not Available [address] [place] [address] [address] [place] [address], 72394, 04/13/2017 13:08:14 04/13/20 17 04/13/2017 CBC ly% 32.4 % normal Not Available [address] [place] [address] [address] [place] [address], 46492, 04/13/2017 13:08:14 04/13/20 17 04/13/2017 CBC MO% 10.8 % normal Not Available [address] [place] [address] [address] [place] [address], 47459, 04/13/2017 13:08:14 04/13/20 17 04/13/2017 CBC eo% 1.5 % normal Not Available [address] [place] [address] [address] [place] [address], 38676, 04/13/2017 13:08:14 04/13/20 17 04/13/2017 CBC ba% 0.5 % normal Not Available [address] [place] [address] [address] [place] [address], 52037, 04/13/2017 13:08:14 04/13/20 17 04/13/2017 CBC Ig% 0.3 % normal Not Available [address] [place] [address] [place] [address], 81484, 04/13/2017 13:08:14 04/13/20 17 04/13/2017 PTH (para thyro id hormo ne), intac t, serum or plasm a parathyroid hormone intact 152 pg/mL 14-72 high Not Available [address] [place] [address] Draw[address] [place] [address], 32847, 04/13/2017 14:32:23 04/13/20 17 04/13/2017 CMP, serum or plasm a glucose 87 mg/dL 70-109 normal Not Available [address] [place] [address], 42398, 04/13/2017 14:42:38 04/13/20 17 04/13/2017 CMP, serum or plasm a BUN 10 mg/dL 6-26 normal Not Available [address] [place] [address], 03052, 04/13/2017 14:42:38 04/13/20 17 04/13/2017 CMP, serum or plasm a creatinine 0.71 mg/dL 0.0-1. 3 normal Not Available [address] [place] [address], 33899, 04/13/2017 14:42:38 04/13/20 17 04/13/2017 CMP, serum [...] G5 (kidn ey failu re). Not Available [address] [place] [address], 66452, 04/13/2017 14:42:38 04/13/20 17 04/13/2017 CMP, serum or plasm a calcium 9.9 mg/dL 8.3-9. 9 normal Not Available [address] [place] [address], 14081, 04/13/2017 14:42:38 04/13/20 17 04/13/2017 CMP, serum or plasm a total protein 6.9 g/dL 5.9-7. 9 normal Effec tive 5: Pleas e note the refer ence range for this test has duarte ed. Exact pedia tric range s are not estab lishe d, but tend to be lower than adult range s. Not Available [address] [place] [address], 64320, 04/13/2017 14:42:38 04/13/20 17 04/13/2017 CMP, serum or plasm a albumin 4.0 g/dL 2.9-4. 7 normal Not Available [address] [place] [address], 81175, 04/13/2017 14:42:38 04/13/20 17 04/13/2017 CMP, serum or plasm a alkaline phosphatase 56 IU/L 18-210 normal Not Available [address] [place] [address], 67338, 04/13/2017 14:42:38 04/13/20 17 04/13/2017 CMP, serum or plasm a SGOT (AST) 22 IU/L 15-37 normal Effec tive 5: Pleas e note the refer ence range for this test has duarte ed. Not Available [address] [place] [address], 95475, 04/13/2017 14:42:38 04/13/20 17 04/13/2017 CMP, serum or plasm a bilirubin total 0.4 mg/dL 0.2-1. 3 normal Not Available [address] [place] [address], 20283, 04/13/2017 14:42:38 04/13/20 17 04/13/2017 CMP, serum or plasm a SGPT (ALT) 23 IU/L 13-56 normal Not Available [address] [place] [address], 72175, 04/13/2017 14:42:38 04/13/20 17 04/13/2017 CMP, serum or plasm a sodium 141 mEq/L 135-14 5 normal Not Available [address] [place] [address], 00674, 04/13/2017 14:42:38 04/13/20 17 04/13/2017 CMP, serum or plasm a potassium 4.4 mEq/L 3.5-5. 1 normal Not Available [address] [place] [address], 91093, 04/13/2017 14:42:38 04/13/20 17 04/13/2017 CMP, serum or plasm a chloride 108 mEq/L 98-112 normal Not Available [address] [place] [address], 46577, 04/13/2017 14:42:38 04/13/20 17 04/13/2017 CMP, serum or plasm a CO2 25 mEq/L 20-32 normal Not Available [address] [place] [address], 58315, 04/13/2017 14:42:38 04/13/20 17 04/13/2017 CMP, serum or plasm a anion gap 8 mEq/L 5-15 normal Not Available [address] [place] [address], 26259, 04/13/2017 14:42:38 04/13/20 17 04/13/2017 magne sium, serum or plasm a magnesium 2.1 mg/dL 1.6-2. 6 normal Not Available [address] [place] [address], 14651, 04/13/2017 14:42:40 04/13/20 17 04/13/2017 lipid panel , serum cholesterol 167 mg/dL normal ASHA ABLE <200 Asha able 200-2 39 Borde rline High >=240 High Not Available [address] [place] [address], 34616, 04/13/2017 14:42:41 04/13/20 17 04/13/2017 lipid panel , serum triglyceride 190 mg/dL normal BORDE RLINE HIGH <=150 Luz l 150-1 99 Borde rline High 200-4 99 High >=500 Very High Not Available [address] [place] [address], 60798, 04/13/2017 14:42:41 04/13/20 17 04/13/2017 lipid panel , serum HDL 66 mg/dL normal OPTIM AL <40 Low >=60 Optim al Not Available [address] [place] [address], 97914, 04/13/2017 14:42:41 04/13/20 17 04/13/2017 lipid panel , serum calculated LDL 63 mg/dL normal OPTIM AL <100 Optim al 100-1 29 Near optim al 130-1 59 Borde rline High 160-1 89 High >=190 Very High The above class ifica tions are based on the recom menda tions of the NCEP Exper t Panel , (ATP III, 2001) . Not Available [address] [place] [address], 16814, 04/13/2017 14:42:41 04/13/20 17 04/13/2017 iron + total iron- parish ng capac ity (TIBC ), serum iron 42 ug/dL 40-175 normal Not Available [address] [place] [address] [place] [address], 46051, 04/13/2017 14:42:42 04/13/20 17 04/13/2017 iron + total iron- parish ng capac ity (TIBC ), serum transferrin 275 mg/dL 200-36 0 normal Effec tive 5: Pleas e note the refer ence range for this test has duarte ed. Not Available [address] [place] [address], 68413, 04/13/2017 14:42:42 04/13/20 17 04/13/2017 iron + total iron- parish ng capac ity (TIBC ), serum iron binding 359 ug/dL 250-40 0 normal Not Available [address] [place] [address], 72549, 04/13/2017 14:42:42 04/13/20 17 04/13/2017 iron + total iron- parish ng capac ity (TIBC ), serum iron saturation 12 % 16-55 low Not Available [address] [place] [address] [place] [address], 97742, 04/13/2017 14:42:42 04/13/20 17 04/13/2017 iron + total iron- parish ng capac ity (TIBC ), serum ferritin 15 NG/mL 8-252 normal Peyton tin value s are age depen dent and can vary depen ding on menop ausal statu s. Not Available [address] [place] [address], 07170, 04/13/2017 14:42:42 04/13/20 17 04/13/2017 vitam in B12, serum vitamin B12 279 pg/mL 193-98 6 normal Effec tive 5: Pleas e note the refer ence range for this test has duarte ed. Not Available [address] [place] [address], 52892, 04/13/2017 14:42:43 04/13/20 17 04/13/2017 vitam in [...] suppl ement ation . Not Available [address] [facility], [place], [place], [id number], 04/13/2017 14:42:45 12/15/19 17 12/09/2016 XR, chest , 2 view No observ ation record ed. [email or web address] Not Available 2016 17:07:18 12/15/19 17 12/02/2016 CT, chest , w/o contr ast No observ ation record ed. [email or web address] Not Available 2016 17:07:18 12/15/19 17 12/02/2016 XR, chest No observ ation record ed. [email or web address] Not Available 2016 17:07:18 01/23/20 17 01/18/2017 US, echoc ardio gram [facility] [employer] [facility] , [place]. [address] - Chichi t: SIMIN GAMEZ ROL Phone: Exam Date:0 7 Exam: ECHOCA RDIOGR AM Attend yvette Jorgensen:Kim NAILS :[birth year] Age/Se x: 71/F Kendrick dixon M.D.: BHAVYA TA E.DChristi Attend yvette Jorgensen: X-Ray #: [id number] Locati on: CAV.NA Sympto ns for test: DYSPNE A Diagno sis: [facility] [employer] [facility] [address] [place] [address] [phone] Transt horaci c Echoca rdiogr am 2D, M-mode , Dopple r, and Color Dopple r Name: YOLI ANNA MR #: [id number] Accoun t #: [id number] Study date: 2016 : 1944 Gender : [...] The valve was trilea flet and exhibi idalai normal morpho logy and motion . Leafle [...] MV A Heriberto: 130 cm/s MV Dec Sequoyah: 633.3 cm/s2 MV DecT: 146.6 ms MV [...] Techno logist ...... ...... ...... ....: [place] [email or web address] [facility] (Radiology) [address] [place] [address], [address], 01/22/2017 15:51:25 01/26/20 17 01/01/2017 US, flaquita domingo, jorge s, jay [facility] anna No observ ation record ed. Not Available 2016 09:56:42 02/05/20 17 tomeka metry testi ng* No observ ation record ed. [email or web address] Not Available 2016 19:17:10 02/18/20 17 02/12/2017 CT, chest , w/o contr ast [facility] s ADALBERTO VARGAS [facility] CTR DIAGNO STIC IMAGIN G DEPART MENT [address] [place] [address] - Patien t: SIMIN GAMEZ Phone: Exam Date:1 7 Exam: CT Chest Wo Attend [facility] M.D.:Kim NAILS [employer] TEAM MEMBER :02/09 Age/Se x: 72/F Orderi zack Morley.:Kim NAILS E.DChristi Attend yvette M.D.: Primar y Thais Morley.: BHAVYA TA [employer] TE[employer] MEMBER X-Ray #: [id number] Locati on: RAD.NA Other Locati on: [...] n: [id number] Access ion Number : [id number] Transc ribed by: PS Interp reting Physic danna: VALENTÍN DURAN MD Electr onical ly Signed by: NAHOMY DURAN MD on 1344 Rec'd in [facility] on : 1344 Techno logist : RM Exam CPT #: 22070S Briana Melara r #: [id number] Report #: [id number] [facility] Rec#:[id number] Report Status : Signed [address] (Radiology) [address] [place] [address], [address], 02/17/2017 19:58:28 02/25/20 17 02/04/2017 tomeka metry testi ng* No observ ation record ed. [email or web address] In-Office Order Internal Use Only DO Not Attach Compendium DO Not Attach Compendium, Do Not Delete/merge, [id number] 02/24/2017 09:26:11 Result Notes None recorded. Problems Name Problem SNOMED Code Status Onset Date Resolution Date Notes Provider Name and Address Organization Details Recorded Time Bursitis of shoulder 301292292 Completed 09/20/2015 Maddison Ta [address], [address], [facility] [employer] 6 11:16:08 Hypercho lesterol emia 02591822 Completed 09/19/2015 Maddison Ta [address], [address], [facility] [employer] 6 11:16:08 Disorder of lipid metaboli sm 394558630 Completed 09/19/2015 Maddison Ta [address], [address], [facility] [employer] 6 11:16:08 Restless legs 65905112 Active ? hives w/mirape x, Gabapent in no longer effectiv e. Neupro patch & Lyrica are too expensiv e. Referrin g to Neurolog y. Maddison Ta [address], [address], [facility] [employer] 7 10:40:06 Pure hypercho lesterol emia 136304959 Completed 09/19/2015 Maddison Ta [address], [address], [facility] [employer] 6 11:16:08 Anemia 522178601 Completed 09/20/2015 Maddison Ta [address], [address], [facility] [employer] 6 11:16:08 Hyperten sive disorder 18964747 Completed 04/08/2016 Maddison Ta [address], [address], [facility] [employer] 6 21:12:21 Hyperlip idemia 68223182 Active Maddison Ta [address], [address], [facility] [employer] 7 11:31:53 Pain 39927926 Completed 09/25/2015 Maddison Ta [address], [address], [facility] [employer] 6 20:26:38 Abnormal breath sounds 958493561 Completed 04/08/2016 Maddison Ta [address], [address], [facility] [employer] 6 20:35:08 Iron deficien cy anemia 97519560 Active Secondar y to chronic stomach ulcers dx'd on EGD 09/22, Dr. Almonte. Maddison Ta [address], [address], [facility] [employer] 6 20:35:05 Constipa tion 24271133 Active secondar y to iron supp Maddison Ta [address], [address], [facility] [employer] On License [facility] [employer] 6 20:34:14 Edema 050759247 Completed 04/08/2016 Maddison Ta [address], [address], [facility] [employer] 6 20:26:14 Laborato ry test result abnormal 371881198 Completed 04/08/2016 Maddison Ta [address], [address], [facility] [employer] [facility] 6 20:25:56 C-reacti ve protein outside referenc e range 295595850 Completed 04/08/2016 Maddison Ta [address], [address], [facility] [employer] [facility] 6 20:26:03 Hypomagn esemia 151548628 Active Maddison Ta [address], [address], [facility] [employer] 6 11:16:07 Pain 24503057 Completed 04/08/2016 Maddison Ta [address], [address], [facility] [employer] [facility] 6 20:26:38 Smoker 60296040 Completed 04/08/2016 Maddison Ta [address], [address], [facility] [employer] License [facility] [employer] 7 11:32:18 Pain of joint 78898167 Completed 04/08/2016 Maddison Ta [address], [address], [facility] [employer] [facility] 6 20:26:18 Rheumato id arthriti s 54392971 Active [facility] Sepulveda , [facility] Maddison Ta [address], [address], [facility] [employer] [facility] [employer] 7 11:30:56 Ulcer 617906688 Active 2015 Multiple chronic antrum ulcers. Accounta ble for iron deficien cy. Dr. Almonte. Maddison Ta [address], [address], [facility] [employer] [facility] [employer] 6 21:14:17 Nicotine dependen ce 64743896 Completed 04/24/2017 Maddison Ta [address], [address], [facility] [employer] [facility] 7 11:32:11 Osteopor osis 98895862 Active 02/28/20 16 BMD w/Severe osteopor osis. 04/09/16 starting fosamax. Maddison Ta [address], [address], [facility] [employer] [facility] 6 12:37:52 Vitamin D deficien cy 84705116 Active Maddison Ta [address], [address], [facility] [employer] [facility] 7 11:31:35 Psoriati c arthriti s 960809880 Active Dr. [facility] Maddison Ta [address], [address], [facility] [employer] [facility] 7 11:31:03 Coronary atherosc lerosis 881903820 Active 11/23 CT chest. Mild atherosc lerosis of coronary arteries . Hx of ulcer w/iron def anemia. Asa d/c'd - risk outweigh s benefit at this time. Continue statin. Needs to quit smoking. Maddison Ta [address], [address], [facility] [employer] [facility] 7 17:50:30 At increase d risk for falls 699853422 Active Does have cane and walker, hospital bed w/rails, handle bars in shower. Maddison Ta [address], [address], [facility] [employer] [facility] 7 10:15:08 Smoker 61662815 Active 2016 Maddison Ta [address], [address], [facility] [employer] [facility] 7 11:32:18 Cobalami n deficien cy 196728345 Active Maddison Ta [address], [address], [facility] [employer] 7 11:47:44 Hyperpar athyroid ism 79476953 Active MaddisonAMERICA Turner [address] [place] [address], [address], [facility] [employer] 7 11:47:46 Chronic rhinitis 83496058 Active AMERICA Leavitt [address] [place] [address], [address], [facility] [employer] 7 11:47:50 Notes:01/2016 Hep C negative Problem Notes None recorded. Procedures Surgical History Date Name Laterality Status Provider Name and Address Organization Details Recorded Time 02/28/20 16 Mammogram completed AMERICA Leavitt [address] [place] [address], [address], [facility] [employer] 03/02/2016 10:39:30 11/07/19 16 Colonoscopy completed AMERICA Leavitt [address] [place] [address], [address], [facility] [employer] 11/19/2015 11:39:50 09/20/19 16 EGD completed AMERICA Leavitt [address] [place] [address], [address], [facility] [employer] 04/08/2016 21:14:07 04/06/19 73 Hysterectomy completed AMERICA Leavitt [address] [place] [address], [address], [facility] [employer] 09/20/2015 14:42:08 01/04/19 73 Section completed mandy castrejon [place] [employer] 09/18/2015 16:50:14 05/10/18 73 Appendectomy completed AMERICA Leavitt [address] [place] [address], [address], [facility] [employer] 10/18/2015 11:17:55 Imaging Results Imaging Date Name Status LastModified by Organization Details LastModified Time 12/09/2016 XR, chest, 2 view completed [email or web address] Informa tion not available 12/14/2016 17:07:18 12/02/2016 CT, chest, w/o contrast completed [email or web address] Information not available 12/14/2016 17:07:18 12/02/2016 XR, chest completed [email or web address] Information no t available 12/14/2016 17:07:18 01/18/2017 US, echocardiogram completed [email or web address] [facility] (Radiology) [address] [place] [address], [address], 01/22/2017 15:51:25 01/01/2017 US, duplex, venous, lower extremity completed [email or web address] Information not available 01/26/2017 09:56:42 02/04/2017 spirometry testing* completed [email or web address] Information not available 02/04/2017 19:17:10 02/12/2017 CT, chest, w/o contrast completed [email or web address] [facility] (Radiology) [address] [place], [address], 02/17/2017 19:58:28 02/04/2017 spirometry testing* completed [email or web address] In-Office Order Internal Use Only DO Not Attach Compendium DO Not Attach Compendium, Do Not Delete/merge, [id number] 02/24/2017 09:26:11 Procedure Notes None recorded. Medical Equipment None Reported. Allergies Allergen ID Allergen Name Allergen Category Reaction Reaction Severity Criticality Documentation Date Start Date Code Code System Note Provider Name and Address Organization Details Recorded Time 30858 Oxycontin medicatio n hives Not available Not available 10/09/2015 30616 6 RxNorm mandy crain [facility] [employer] [facility] 6 09:56:45 39981 pramipexo le medicatio n hives Not available Not available 04/26/2017 37884 1 RxNorm AMERICA Leavitt [address] [place], [address] , [facility] [employer] [facility] 7 19:38:42 Medications Name Sig [...] Not Available Not Available [employer] [facility] 12/23 completed Not Available Not Available [...] Updated DateTime 7 157.48 cm 28.5 kg/m2 09241.4 1 g 99 /min 128 mm[Hg] 80 mm[Hg] Evelyn [employer] [facility] [employer] [facility] 7 09:20:32 Date Recorded Body height Body mass index (BMI) Body weight Heart rate Oxygen saturation Oxygen saturation in Arterial blood by Pulse oximetry Body temperature Systolic blood pressure Diastolic blood pressure Provider Name and Address Organization Details Last Updated DateTime 7 157.48 cm 27.3 kg/m2 87655.0 6 g 101 /min 94 % 94 % 98.7 [degF] 144 mm[Hg] 88 mm[Hg] Evelyn Teran [employer] [facility] 7 08:42:43 Date Recorded Body height Body mass index (BMI) Body weight Heart rate Oxygen saturation Oxygen saturation in Arterial blood by Pulse oximetry Body temperature Systolic blood pressure Diastolic blood pressure Provider Name and Address Organization Details Last Updated DateTime 7 157.48 cm 27.3 kg/m2 46642.3 6 g 113 /min 96 % 96 % 98.2 [degF] 132 mm[Hg] 80 mm[Hg] Evelyn Teran Green [employer] [facility] [employer] 7 16:11:40 Date Recorded Body height Body mass index (BMI) Body weight Heart rate Oxygen saturation Oxygen saturation in Arterial blood by Pulse oximetry Systolic blood pressure Diastolic blood pressure Provider Name and Address Organization Details Last Updated DateTime 7 157.48 cm 26.9 kg/m2 71034.0 8 g 93 /min 99 % 99 % 130 mm[Hg] 90 mm[Hg] Evelyn red [facility] [employer] [facility] 7 16:17:39 Date Recorded Body height Body mass index (BMI) Body weight Heart rate Oxygen saturation Oxygen saturation in Arterial blood by Pulse oximetry Systolic blood pressure Diastolic blood pressure Provider Name and Address Organization Details Last Updated DateTime 7 157.48 cm 25.7 kg/m2 78728.0 3 g 89 /min 98 % 98 % 144 mm[Hg] 88 mm[Hg] Evelyn Dudley[employer] Ar[employer] [facility] [employer] [facility] 7 08:46:14 Social History Question Answer Notes LastModified by Organizat ion Details LastModified Time Tobacco Smoking Status Current Every Day Smoker Previously quit 04/03/16. Maddison Ta [employer] [address] [place] [address], [address], [facility] [employer] [facility] 04/08/2016 21:10:44 Do You Have An Advance Directive? No Paper Work Provided 11/16/16 Information not available 11/16/2016 Which Illicit Or Recreational Drugs Have You Used? Denies [email or web address] Information not available 09/19/2015 Are There Any Guns Present In Your Home? No Information not available 07/20/2016 Dietary Regular Chicken And Fish, Does Not Like Red Meat [email or web address] Information not available 10/18/2015 Marital Status yoli Riceati on not available 09/18/2015 What Was The Date Of Your Most Recent Tobacco Screening? 04/21/2017 Information not available 11/30/2018 How Many Children Do You Have? 2 Youngest Son Biological And Oldest Son Adopted [email or web address] Information not available 10/18/2015 Seat Belts Used Routinely Yes Information not available 07/20/2016 Smoke Alarm In Home Yes Information not available 07/20/2016 At What Age Did You Start Smoking Tobacco? 20 [email or web address] Information not available 10/18/2015 How Much Tobacco Do You Smoke? 0.5 PPD 3 Cigarettes Daily [email or web address] Information not available 04/21/2017 Do You Use Sunscreen Routinely? Yes Information not available 07/20/2016 Sex: Unknown Functional Status Question Answer Note LastModified by Organization D etails LastModified Time What is your level of alcohol consumption? None Information not available 09/18/2015 What is your occupation? Retired Information not available 09/18/2015 What is your exercise level? None [email or web address] Information not available 10/18/2015 Mental Status None recorded. Family History Relationship Description Onset Age of this Age Resolved Age Notes LastModified by Organization Details LastModified Time Father Hypertensive disorder 65 Not available 2015 11:22:03 Father Heart disease [email or web address] Not available 2015 11:22:03 Father Rheumatoid arthritis Not available 2015 11:22:03 Mother Renal failure syndrome Not available 2015 11:22:03 Mother Hypertensive disorder [email or web address] Not available 2015 11:22:03 Mother Heart disease Not available 2015 11:22:03 Sister Deep venous thrombosis stent placem ent Not available 04/21/2017 10:18:13 Medical History Condition [...] quadrivalent, preservative 04/21/20 17 completed Not Available [facility] 05/27/2019 02:40:02 pneumococcal polysaccharide PPV23 04/21/20 17 completed Not Available [facility] 05/27/2019 02:40:02 Tdap 05/10/19 12 completed AMERICA Leavitt [address] [place], [address], [facility] - On License Of [facility] [employer] [facility] 01/17/2016 08:58:39 Pneumococcal conjugate PCV 13 03/25/20 16 completed Not Available [facility] 06/10/2019 02:16:57 Influenza, high-dose, trivalent, PF 03/25/20 16 completed Not Available [facility] 06/10/2019 02:16:57 Past Encounters Encounter ID Performer Location Encounter Start Date Encounter Closed Date Diagnosis/Indication Diagnosis SNOMED-CT Code Diagnosis ICD10 Code Diagnosis Note [id number] Bradford Mike MD. [facility] Mandrel Puller s [address] [place] [phone] 09/19/2015 10:47:43 09/19/2015 12:17:07 Pain 88549271 R52 Muscle spasm, cramps and joint pain. Broad ddx including electrolyt e abnormalit y, rheumatolo gic disorder, malignancy , GIB, small possibilit y this could be PMR. Will obtain labs now and call to f/u. Offered to start prednisone 20 mg one tab daily x 45 days and will call tomorrow. Patient and agree to plan. Abnormal b reath sounds 180380669 R09.89 Will hold off on CXR at this time. Will discuss obtaining LDCT once she is feeling better. Restless legs 30423336 G 25.81 She is asking to have gabapentin increased. She is currently on gabapentin 600 mg po 3 times a day. Therefore, we will increase to gabapentin 800 mg 3 times a day. F/u next ov. [id number] Bradford Mike MD. [facility] Mandrel Puller s [address] [place] [phone] 09/23/2015 15:08:59 09/23/2015 16:27:42 Iron deficiency anemia 80746062 D50.9 09/23/15 Continue iron one tab BID. [...] reoccuring symptoms. Patient agrees with plan. Constipation 18284824 K5 9.00 Secondary to iron supplement . Pain 28682212 R52 Muscle spasm, cramps and joint pain. [...] resolved. Recheck CCP and CRP. Refer to Rheumatolo gy. Discuss at f/u. She will most likely have to travel. Consider [facility] n or [facility] d since she is from [place]. Edema 866163562 R60.9 Now trace. Continue to monitor. Elevate TID/PRN. Call for any increased swelling. Abnormal b reath sounds 486647380 R09.89 + smoker. Will discuss obtaining LDCT next ov. Restless legs 40660251 G 25.81 Gabapentin increased from 600 mg to 800 mg 3 times a day with good effect. Continue to monitor. [id number] Bradford Mike MD. [facility] Mandrel Puller s [address] [place] [phone] 10/09/2015 09:36:24 10/09/2015 10:32:41 Hypomagnesemia 808514479 E83.42 Hyperlipidemia 17242145 E78.5 Pain 53401661 R52 Muscle spasm, cramps and joint pain. [...] resolved. Recheck CCP and CRP. Refer to Rheumatolo gy. Discuss at f/u. She will most likely have to travel. Consider [facility] or [facility] d since she is from [place]. 10/09/15 Amenable to Rheumatkael gy. Start prednisone 40 mg x 5 days and then 20 mg x 5 days. RTC 10/18/15. Iron defic iency anemia 81090615 D50.9 09/23/15 Continue iron one tab BID. [...] as noted above prior to next ov. [id number] Bradford Mike MD. [facility] Mandrel Puller s [address] [place] [phone] 10/18/2015 10:35:56 10/18/2015 11:59:47 Smoker 13626439 F17.200 She plans on trying the nicotine lozenges. Pain 29655925 R52 Muscle spasm, cramps and joint pain. [...] will most likely have to travel. Consider [facility] n or [facility] d since she is from [place]. 10/09/15 Amenable to Rheumatkael gonzalez. Start prednisone 40 mg x 5 days and then 20 mg x 5 days. RTC 10/18/15. 10/18/15 Awaiting call from Dominik gonzalez [place] . Informatio n provided for Dr. Jennifer mann in [facility]. Another trial of lower dose prednisone . Constipation 23011955 K5 9.00 Secondary to iron supplement . Contact Dr. Almonte for any worsening symptoms. Iron defic iency anemia 45213245 D50.9 09/23/15 Continue iron one tab BID. [...] current dose. Recheck labs one month Edema 877423740 R60.9 Now trace. Continue to monitor. Elevate TID/PRN. Call for any increased swelling. 10/18/15 Instructio ns as above. Hypertensive disorder 38 117151 I10 Borderline today. She smoked just prior to coming in. Continue to monitor. She is currently not on any medication s. [id number] Bradford Mike MD. [facility] Mandrel Puller s [address] [place] [address] 01/17/2016 08:25:13 01/17/2016 09:36:59 Hypertensive disorder 68878944 I10 Borderline today. She smoked just prior to coming in. Continue to monitor. She is currently not on any medication s.01/16/16 Same today. Continue to monitor. Pain 31508905 R52 Muscle spasm, cramps and joint pain. [...] will most likely have to travel. Consider [facility] n or [facility] since she is from [place]. 10/09/15 Amenable to Rheumatkael gy. Start prednisone 40 mg x 5 days and then 20 mg x 5 days. RTC 10/18/15. 10/18/15 Awaiting call from Rheumatkael gonzalez, [place] . Informatio n provided for Dr. Jennifer mann in [facility]. Another trial of lower dose prednisone .01/17/16 [...] to passively bend it. Pain of joint 54326370 M 25.50 01/17/16 Prednisone is effective for joint pain. Iron defic iency anemia 17180705 D50.9 09/23/15 Continue iron one tab BID. [...] will forward results. Call to f/u Edema 478443990 R60.9 Now trace. Continue to monitor. Elevate TID/PRN. Call for any increased swelling. 10/18/15 Instructio ns as above. Currently denies. Continue to monitor. call with worsening symptoms. Constipation 61092731 K5 9.00 Secondary to iron supplement . Contact Dr. Almonte for any worsening symptoms. Controlled with metamucil or colace daily. Smoker 75986059 F17.200 She plans on trying the nicotine lozenges. She is down to 5 cigarettes daily. Encouraged continued efforts to quit. Restless legs 92657326 G 25.81 Gabapentin increased from 600 mg to 800 mg 3 times a day with good effect. Continue to monitor.01/17/16 Take 1.5 tablets at 4 pm and then take 1.5 tablets 2 hours prior to bedtime per Up-to-date recommenda tions. Instructed to call in one week if no effect. Screening for malignant neoplasm of breast 785660063 Z12.31 She would like to have mammo in [facility]. She is going back for labs next week and will request then. Exposure t o Hepatitis C virus 812250740 Z20.5 She is having screening completed by Dr. Arora. Administra tion of influenza vaccine 48253041 Z23 She plans on having at [facility] d/t complete coverage. Screening for osteoporosis 549978648 Z13.820 She would like to have in [facility]. She is going back for labs next week and will request then. [id number] Bradford Mike MD. [facility] Miguel Mandrel Puller s [address] [place] [phone] 04/08/2016 09:25:36 04/08/2016 10:56:31 Osteoporosis 75736835 M81.0 She reports she was told not to take calcium or vitamin d in the past.She is taking magnesium at night. Edentulous .Amenable to starting Fosamax. Hold and complete labs and f/u. Iron defic iency anemia 30240405 D50.9 09/23/15 Continue iron one tab BID. [...] Repeat labs and call to f/u. Hypomagnesemia 901801663 E83.42 04/08/16 worsening RLS. Repeat labs and call to f/u. Hypertensive disorder 38 264451 I10 Reasonable . She is currently not taking anything. Restless legs 94981576 G 25.81 Gabapentin increased from 600 mg [...] She is currently taking 2,400 mg daily. [id number] Bradford Mike MD. [facility] Miguel Mandrel Puller s [address] [place] [phone] 04/20/2016 08:30:02 04/20/2016 09:51:39 Hypomagnesemia 904447922 E83.42 04/08/16 worsening RLS. Repeat labs and call to f/u. mag WNL. Continue mag 400 mg daily. Continue to monitor. Osteoporosis 31993588 M8 1.0 She reports she was told [...] due in 2019. Iron defic iency anemia 24486657 D50.9 09/23/15 Continue iron one tab BID. [...] Review labs from Dr. Arora. Restless legs 35641753 G 25.81 Gabapentin increased from 600 mg [...] at 3200 mg daily. Rheumatoid arthritis 6[address] Jenkins on 04/16/16 and he started her on methotrexa te 2.5 mg four tabs once a week and folic acid 1 mg daily. She is having worsening hand pain today. She did take prednisone this morning. Abnormal weight gain 161 955734 R63.5 She has developed pain over the past several years and therefore has not been as active as she once was. Counseling provided. We discussed swimming and stationary bike. She would have to learn how to swim if she does pursue water aerobics, but is open to the idea. Will re-check TSH in the interim. Screening for malignant neoplasm of respiratory tract 101816504 Z12.2 Counseling provided. Declines screening at this time. Hyperlipidemia 51169284 E78.5 03/2015 LDL 81, HDL 70 Trigs WNL and she has quit smoking. Will continue to monitor. Adult [facility] th examination 747539122 Z00.00 Overweight . Bilateral hand swelling and decreased ROM. Overweight 352609487 E66 .3 She has developed pain over the past several years and therefore has not been as active as she once was. Counseling provided. We discussed swimming and stationary bike. She would have to learn how to swim if she does pursue water aerobics, but is open to the idea. Will re-check TSH in the interim. Administra tion of pneumococcal vaccine 34783652 Z23 pneumovax due . [id number] Bradford Mike MD. [facility] Mandrel Puller s [address] [place] [phone] 07/20/2016 08:27:12 07/20/2016 09:27:37 Osteoporosis 91827141 M81.0 She reports she was told not [...] no change. Continue as above. Restless legs 34188420 G 25.81 Gabapentin increased from 600 mg [...] Continue as above. Iron defic iency anemia 70507347 D50.9 09/23/15 Continue iron one tab BID. [...] f/u. Continue iron 325 mg bid. Hypomagnesemia 886912824 E83.42 04/08/16 worsening RLS. Repeat labs and call to f/u. mag WNL. Continue mag 400 mg daily. Continue to monitor. Will update level since she is having intermitte nt severe pain. Rheumatoid arthritis 6[address] Jenkins on 04/16/16 [...] call to f/u. Abnormal weight gain 161 751335 R63.5 She has developed pain over the [...] Screening for malignant neoplasm of respiratory tract 636052833 Z12.2 Counseling provided. Declines screening at this time. Hyperlipidemia 13175114 E78.5 03/2015 LDL 81, HDL 70 Trigs WNL and she has quit smoking. Will continue to monitor. Rechecking now. Call to f/u. Continue pravastati n 40 mg daily. Overweight 721732082 E66 .3 She has developed pain over [...] in Dec, but she continues to gain weight and is now reporting pills getting stuck and possible thyroid enlargemen t. Re-checkin g tsh. Recommend thyroid u/s but cannot afford at this time. Calling Dr. Almonte to discuss dysphagia. Restarting omeprazole 20 mg daily. Administra tion of pneumococcal vaccine 78665834 Z23 pneumovax due Sep, 2016. Vitamin D deficiency 347 52926 E55.9 Level was 10 at the end of Mar and for some reason another level was drawn early at the end of April and 35 after only one month of high dose. Gastroesop hageal reflux disease 305867680 K21.9 Swelling 59507439 R60.9 Also c/o pills getting stuck. Occasional ly choking on liquid. Most likely subcutaneo us tissue. Recommend u/s to r/o any thyroid d/o. Hx of weight gain. She would like to hold off for now d/t financials . Dysphagia 47936612 R13.1 0 New history of pills getting stuck. Occasional ly choking on liquid. Denies any food becoming stuck. She is sitting up. She reports swelling in lower neck. Severe heartburn. She is taking Pepto with good effect. She will call Dr. Almonte for ov aby. [id number] Bradford Mike MD. P Miguel Mandrel [address] [phone] 11/16/2016 09:06:32 11/16/2016 10:29:28 Osteoporosis 92881695 M81.0 2015 She reports she was told not to take calcium or vitamin d in the past.She is taking magnesium at night. Edentulous . Amenable to starting Fosamax. Hold and complete labs and f/u. Tolerating Fosamax thus far. Adequate dietary calcium, currently repleting vitamin d with high dose and vitamin d 2,000 units daily. Encouraged weight bearing exercises. BMD due in 2019. no change. Continue as above.11/16 No change. Needs PTH updated. Continue fosamax. Restless legs 80291924 G 25.81 2015 Gabapentin increased from 600 [...] with any changes. Iron defic iency anemia 81485324 D50.9 09/23/15 Continue iron one tab BID. [...] normalizes . Patient agrees with plan. Hypomagnesemia 561316976 E83.42 04/08/16 worsening RLS. Repeat labs and call to f/u. mag WNL. Continue mag 400 mg daily. Continue to monitor. Will update level since she is having intermitte nt severe pain. continue mag oxide 400 mg daily. Most recent level was 2.6 in July,. Rheumatoid arthritis 698 [address] M06.[address] Jenkins on [...] end of Jan. Abnormal weight gain 161 180253 R63.5 2015 She has developed pain over [...] Screening for malignant neoplasm of respiratory tract 344908540 Z12.2 Counseling provided. Declines screening at this time. Hyperlipidemia 90283557 E78.5 03/2015 LDL 81, HDL 70 Trigs WNL and she has quit smoking. Will continue to monitor. Rechecking now. Call to f/u. Continue pravastati n 40 mg daily. Overweight 170410819 E66 .3 2015 She has developed pain [...] diet mods. Administra tion of pneumococcal vaccine 96955114 Z23 pneumovax due Mar, 2017. Vitamin D deficiency 347 40440 E55.9 2016 Level was 10 at the [...] 50,ooo units weekly. Gastroesop hageal reflux disease 485583193 K21.9 Dysphagia 12464470 R13.1 0 11/16/16 Resolved since starting omeprazole [...] Almonte for ov aby. Cobalamin deficiency 190 127588 E53.8 Constipation 18946076 K5 2015 Secondary to iron supplement . Contact Dr. Almonte for any worsening symptoms. Controlled with metamucil or colace daily.11/16 Stable. As above. Nicotine dependence 5629 4008 F17.200 Cessation advised. [id number] Bradford Mike MD. P Miguel Mandrel Puller s [address] [place] [address] 12/23/2016 08:34:42 12/23/2016 09:28:44 Rib pain 748003003 R07.81 12/23/16 Left posterior ribs 5 - 9 CT 12/02/16. Pain well controlled with tramadol and Tylenol. Recommende d she take tramadol aby and continue as needed. She is well aware of potential side effects and she will continue to attempt to use sparingly. Chronic ob structive pulmonary disease 20648922 J44.9 12/23/16 She must reschedule appt with [...] with albuterol INH prn for now. Pneumonia 447830553 J18. 9 12/23/16 Improved. Counseling , education and instructio ns provided re: use of IS. Use 10x/hr while awake as tolerated. Admits IS is at home but they will p/u to bring to daughter-i n-law's. Call with any fevers, chills, worsening cough, sob, sputum production , wheeze, weakness, fatigue. Smoker 85563543 F17.200 12/23/16 Quit 03/2016. But has been smoking 3 - 5 cigarettes daily. She plans on trying the nicotine lozenges. She is down to 5 cigarettes daily. Encouraged continued efforts to quit. Dyspnea 837039091 R06.00 Edema of l ower extremity 139693173 R60.0 Conservati ve measures. Will try stockings. checking echo. Elevated blood-pressure reading without diagnosis of hypertension 960074880 R03.0 12/23/16 Currently having moderate amount of pain. Daughter-kylie n - does have mannual cuff and will check readings. She states she is well versed on BP home monitoring . Instructed to call with BP readings sustained >140/90. [id number] Bradford Mike MD. P Miguel Mandrel Puller s [address] [place] [address] 01/01/2017 16:02:03 01/01/2017 17:10:31 Elevated blood-pressure reading without diagnosis of hypertension 744850695 R03.0 01/01/17 Reasonable today. Continue to monitor. Currently having moderate amount of pain. Daughter-kylie boo does have manual cuff and will check readings. She states she is well versed on BP home monitoring . Instructed to call with BP readings sustained >140/90. Chronic ob structive pulmonary disease 28093019 J44.9 01/01/17 No formal dx. Still need [...] with albuterol INH prn for now. Smoker 11102035 F17.200 01/01/17 as noted below..Nasim rocha advised. Quit 03/2016. But has been smoking 3 - 5 cigarettes daily. She plans on trying the nicotine lozenges. She is down to 5 cigarettes daily. Encouraged continued efforts to quit. Edema of l ower extremity 464676150 R60.0 01/01/17 worse. Acute onset RLE this am, pain. Sending to er.12/23/16 Conservati ve measures. Will try stockings. checking echo. Rib pain 846901810 R07.8 1 01/01/17 controlled with tramadol. She will need to taper off. 7 Left posterior ribs 5 - 9 CT 12/02/16. Pain well controlled with tramadol and Tylenol. Recommende d she take tramadol aby and continue as needed. She is well aware of potential side effects and she will continue to attempt to use sparingly. Dyspnea 977246153 R06.00 could possibly perform pft's today but will not be beneficial at this time d/t priority to r/o PE/DVT. Sending to ER. [id number] Bradford Mike MD. P Miguel Mandrel Puller s [address] [place] [address] 02/04/2017 16:04:28 02/05/2017 08:43:30 Edema of lower extremity 284085051 R60.0 02/04/2017 much improved. Continue Lifestyle modificati ons and continue to monitor and call with any changes. worse. Acute onset RLE this am, pain. Sending to er.12/23/16 Conservati ve measures. Will try stockings. checking echo. Dyspnea 315135862 R06.00 02/04/17 PFT's today are showing restrictio [...] Elevated blood-pressure reading without diagnosis of hypertension 049300140 R03.0 02/04/17 slightly elevated but still reasonable considerjt g her age. Continue to monitor. Reasonable today. Continue to monitor. Currently having moderate amount of pain. Daughter-i n -law does have manual cuff and will check readings. She states she is well versed on BP home monitoring . Instructed to call with BP readings sustained >140/90. Chronic ob structive pulmonary disease 44101146 J44.9 02/04/17 PFTs today reveal restrictiv e [...] with albuterol INH prn for now. Smoker 04462674 F17.200 02/04/17 cessation advised. as noted below. Cessation advised. Quit 03/2016. But has been smoking 3 - 5 cigarettes daily. She plans on trying the nicotine lozenges. She is down to 5 cigarettes daily. Encouraged continued efforts to quit. Rib pain 846150853 R07.8 1 02/04/17 continues to improve. She [...] to attempt to use sparingly. Restless legs 64967234 G 25.81 2015 Gabapentin increased from 600 [...] to taper off gabapentin . Pruritic disorder 604804 002 L29.9 BLE's. She will continue to maintain moisturiza tion and she can try sarna lotion. Rheumatoid arthritis 698 90477 M06.[address] Jenkins on [...] Arora is leaving the practice. Coronary atherosclerosis 630238829 I25.10 02/04/17 CT chest In November w/ Mild atheroscle rosis of coronary arteries. She continues on pravastati n 40 mg daily. Aspirin is currently on hold. Iron defic iency anemia 22357966 D50.9 09/23/15 Continue iron one tab BID. [...] yet. Will continue to monitor. Psoriatic arthritis 1565 90709 L40.50 see RA Vitamin D deficiency 347 18665 E55.9 2016 Level was 10 at the [...] weekly.01/09 12/24 Needs repeated. Cobalamin deficiency 190 931232 E53.8 Hyperparathyroidism 6699 9008 E21.3 [id number] Bradford Mike MD. [facility] Mandrel Puller s [address] [place] [address] 04/21/2017 08:31:53 04/21/2017 10:45:12 Influenza vaccine needed 2728285221 106 Z23 Administra tion of pneumococcal vaccine 34318019 Z23 Hyperparathyroidism 6699 9008 E21.3 Elevated PTH. Vit d3 is not significan tly low, calcium is normal. Referring to Endocrinol madhuri for eval. Dyspnea 376021314 R06.00 04/21/[address] in February due [...] to ER. Edema of l ower extremity 844296929 R60.0 04/21/17 Currently asymptomat ic. 017 much improved. Continue Lifestyle modificati ons and continue to monitor and call with any changes. worse. Acute onset RLE this am, pain. Sending to er.12/23/16 Conservati ve measures. Will try stockings. checking echo. Elevated blood-pressure reading without diagnosis of hypertension 524083845 R03.0 04/21/17 Home readings are borderline . [...] call with BP readings sustained >140/90. Smoker 80970147 F17.200 04/21/17 Cessation advised. Continues to work on quitting. maintainin g 3 cigarettes daily at this point. 02/04/17 cessation advised. as noted below. Cessation advised. Quit 03/2016. But has been smoking 3 - 5 cigarettes daily. She plans on trying the nicotine lozenges. She is down to 5 cigarettes daily. Encouraged continued efforts to quit. Rib pain 562286032 R07.8 1 04/21/17 Resolved. continues to improve. [...] to attempt to use sparingly. Restless legs 19863193 G 25.81 2015 Gabapentin increased from 600 mg to 800 mg 3 times a day with good effect. Continue to monitor.01/17/16 Take 1.5 tablets at 4 pm and then take 1.5 tablets 2 hours prior to bedtime per Up-to-date recommenda tigopal. Instructed to call in one week if [...] tab daily with good effect. Pruritic disorder 768478 002 L29.9 04/21/17 Resolved. Sarna lotion with good effect.01/08 7 BLE's. She will continue to maintain moisturiza tion and she can try sarna lotion. Iron defic iency anemia 90608436 D50.9 09/23/15 Continue iron one tab BID. [...] There is no change. Rheumatoid arthritis 698 82197 M06.[address] Jenkins on [...] following with Antonio Sepulveda. Psoriatic arthritis 1563 00913 L40.50 see RA Coronary atherosclerosis 206148531 I25.10 04/21/17 LDL 63. Continue pravastati n. NO asa - risks outweight benefits d/t hx of stomach ulcers. Patient agrees with plan. CT chest In November w/ Mild atheroscle rosis of coronary arteries. She continues on pravastati n 40 mg daily. Aspirin is currently on hold. Vitamin D deficiency 347 29765 E55.9 2015 Level was 10 at the [...] and repeat in July. Cobalamin deficiency 190 797805 E53.8 04/21/17 Level currently 279. Increase supp to total of b12 1,000 mcg daily. Recheck in July. Adult heal th examination 319072561 Z00.00 10 yr plan provided to patient [...] only cover every other year. Therefore due 02/24.[place] cancer screening: Colonoscop y 10/2015 with [...] ons. Screening for malignant neoplasm of breast 691544181 Z12.31 04/21/17 Most recent mammo 02/22 and negative. She declines this year stating she cannot afford b/c insurance will only cover every other year. Screening for malignant neoplasm of colon 167070042 Z12.11 04/21/17 Colonoscop y 10/2015 with diverticul a, left side, hyperplast ic polyp x 4, was told screening no longer indicated. Hypomagnesemia 977225115 E83.42 04/21/17 2.1. Continue mag ox 400 mg daily. At [facility] risk for falls 694407213 Z91.81 Does have cane and walker, hospital bed w/rails, handle bars in shower. Care instructio ns for preventing falls discussed. She declines any further assistance at home. Overweight 964147101 E66 .3 She is just over cusp of normal bmi. Difficult to tolerate exercise d/t joint pain. Continue efforts towards healthy diet. Osteoporosis 39735877 M8 1.0 04/21/17 Tolerating Fosamax w/out issues. BMD due 2018.02/27 BMD w/Severe osteoporos is. 04/09/16 starting fosamax. Constipation 88071404 K5 9.00 Secondary to iron use. Controlled . Continue colace one cap daily. Ulcer 010597849 L98.9 Accountabl e to iron def per Dr. Almonte. Continue to avoid NSAIDS including asa. Continue omeprazole 20 mg daily. Refer back to Dr. Almonte with any changes. Continue to monitor. see cbc/iron. Chronic rhinitis 9646198 6 J31.0 Continue nasal steroid prn. Congestion [...] Bentley Member ID Guarantor Name 11/16/2016 1 [facility] MEDICARE COMPLETE CHOICE (MEDICARE REPLACEMENT PPO) [id number] [address] [id number] Yoli A [employer] 12/23/2016 1 [facility] MEDICARE COMPLETE CHOICE (MEDICARE REPLACEMENT PPO) [id number] Yoli A [address] [id number] Yoli A [employer] 01/01/2017 1 [facility] MEDICARE COMPLETE CHOICE (MEDICARE REPLACEMENT PPO) [id number] Yoli A [address] [id number] Yoli A [employer]ienvenue 02/04/2017 1 [facility] MEDICARE COMPLETE CHOICE (MEDICARE REPLACEMENT PPO) [id number] Yoli A [address] [id number] Yoli A [employer] 04/21/2017 1 [facility] MEDICARE COMPLETE CHOICE (MEDICARE REPLACEMENT PPO) [id number] Yoli A [address] [id number] Yoli A [employer] Notes Date Note Type Note Provider Name and Address Organization Details Recorded Time 11/16/2016 text/html Patient presents today to follow up multiple issues. Her last visit was in July. She has a history of psoriatic/rheumatoi d arthritis and she has been following with Dr. Jenkins in [place], [place]. She was started on methotrexate 2.5 [...] I encouraged her to f/u with her electronic specialist, Dr. Almonte, but she presents today stating [...] July,. Constipation well controlled with colace prn. AVELINO Leav[address], [address], [facility] [employer] 11/16/2016 14:21:27 12/23/2016 text/html Patient presents today to follow-up multiple ER visits, and hospital admission to [facility] December 01 through December 07 for multiple [...] 6h prn. She presents today with her [id number]. She states pain persists but trying to [...] in the hospital as well. Staying with [id number]. is at home attempting to recover on [...] pain, palpitations, nausea, bowel/bladder problems. Maddison Ta, [employer] MEMBER [address] [facility], [place], [address], [employer] [facility] 12/26/2016 10:34:54 01/01/2017 text/html Presents today w [...] did sleep well last night. Maddison Ta, [employer] TEAM MEMBER [address] [facility], [place], [address], [facility] 01/04/2017 19:20:48 02/04/2017 text/html I saw her on Dec and sent her to the ER after she presented at 5:00 on Wednesday with acute onset of left lower extremity swelling and pain. She had a recent history of pneumonia and rib fractures with intermittent shortness of breath as well. She was going to go to the ER in [place]. However, I had not received any notes. [...] remaining and trying not to take them. AMERICA Leavitt [address] [place], [address], [facility] - [facility] 02/04/2017 19:08:22 04/21/2017 text/html Medicare Annual Wellness [...] care to Antonio Sepulveda. AMERICA Leavitt [address] [facility], [place], [address], [facility] - [employer] [facility] 04/24/2017 11:48:10 OBGyn Episode No OBEpisode recorded.
--- OUTSIDE RECORDS SUMMARY | 2024-09-19 11:23 | XMS_ITS | Encounter Summary ---
Author Organization [employer] [facility] Address [address] [place] [address] Care Team Providers Care Binder Cutter Hand Name Role Phone John Diamond MD Primary Care Provide r Unavailable Jennifer Bhagat MD Primary Care Provider Unavailabl e On License Of [facility], Pcp Primary Care Provider Unavailabl e Encounter Details Date Type Department Care Team Description 07/20/2019 [facility] Medical Records [address] [place] [id number] Lachelle Dean MD Social History Tobacco Use [...] on filedocumented in this encounter Care Teams Binder Cutter Hand Relationship Specialty Start Date End Date John Diamond MD PCP - General Internal Medicine 01/03/19 Jennifer Bhagat MD PCP - General Anesthesiology 10/31/20 10/31/20 [facility], Pcp PCP - General Internal Medicine 03/21/21 documented as of this encounter
--- OUTSIDE RECORDS SUMMARY | 2024-09-19 11:23 | XMS_ITS | Clinical Summary ---
Author Organization [facility] Address [address] [place] [address] Care Team Providers Care Electronic Transaction Implementer Name Role Phone [facility], Pcp Primary Care [...] of Vaccination per patient), 03/25/2016 Care Teams Electronic Transaction Implementer Relationship Specialty Start Date End Date [facility], Pcp PCP - General Internal Medicine 03/21/21
--- OUTSIDE RECORDS SUMMARY | 2024-09-19 11:23 | XMS_ITS | Encounter Summary ---
Author Organization [facility] Address [address] [place] [address] Care Team Providers Care K 9 Handler/ Deputy Name Role Phone John Diamond MD Primary Care Provide r Jennifer Winchester MD Primary Care Provider Unavailabl e [facility], Pcp Primary Care Provider Unavailabl e Reason for Visit * Reason Onset Date Comments Letter 02/13/2020 Encounter Details Date Type Department Care Team Description 02/13/2020 Telephone Adult Medicine [address] [address] John Diamond MD Letter Social History Tobacco Use Types Packs/Day Years [...] or suspected to have Coronavirus / COVID-19? Unable to assess 02/06/2020 4:50 PM EDT documented as of this encounter Miscellaneous Notes * Telephone Encounter - Harleen Casillas L.P.N. - 02/19/2020 2:57 PM EDT Mailed to pt * Telephone Encounter - Queenie Wynne - 02/13/2020 1:48 PM EDT Patient requesting her covid results to be mailed to her house documented in this encounter Plan of Treatment Not on file documented as of this encounter Visit Diagnoses Not on filedocumented in this encounter Care Teams K 9 Handler/ Deputy Relationship Specialty Start Date End Date John Diamond MD PCP - General Internal Medicine 01/03/19 Jennifer Bhagat MD PCP - General Anesthesiology 10/31/20 10/31/20 [facility], Pcp PCP - General Internal Medicine 03/21/21 documented as of this encounter
--- OUTSIDE RECORDS SUMMARY | 2024-09-19 11:23 | XMS_ITS | Encounter Summary ---
Author Organization [employer] [facility] Address [address] [place] [address] Care Team Providers Care Manager Treasury Name Role Phone John Diamond MD Primary Care Provide r Unavailable Jennifer Bhagat MD Primary Care Provider Unavailabl e [facility], Pcp Primary Care Provider Unavailabl e Encounter Details Date Type Department Care Team Description 06/09/2019 [facility] Medical Records [address] [place] [address] Richi Segundo MD Social History Tobacco Use [...] filedocumented in this encounter Care Teams Manager Treasury Relationship Specialty Start Date End Date John Diamond MD PCP - General Internal Medicine 01/03/19 Jennifer Bhagat MD PCP - General Anesthesiology 10/31/20 10/31/20 [facility], Pcp PCP - General Internal Medicine 03/21/21 documented as of this encounter
== END 2024-09-19 11:29 | disposition home or self-care (01) ==
LOC: HO.HMCH 10:17
PROVIDERS: PCP Nurse Practitioner Family; Visit Provider Physician Assistant
DX: Z00.00 Encounter for general adult medical examination without abnormal findings (principal); M05.79 Rheumatoid arthritis with rheumatoid factor of multiple sites without organ or systems involvement; J43.2 Centrilobular emphysema; K92.2 Gastrointestinal hemorrhage, unspecified; E78.2 Mixed hyperlipidemia; I10 Essential (primary) hypertension; D50.9 Iron deficiency anemia, unspecified; F17.210 Nicotine dependence, cigarettes, uncomplicated

== ENCOUNTER → 2024-09-19 10:16 | Outpatient (BNVA) | payer OTHER, SELFPAY | PROVIDERS: PCP Nurse Practitioner Family; Visit Provider Physician Assistant | DX: Z00.00 Encounter for general adult medical examination without abnormal findings (principal); K92.2 Gastrointestinal hemorrhage, unspecified; E78.2 Mixed hyperlipidemia; J43.2 Centrilobular emphysema; I10 Essential (primary) hypertension; D50.9 Iron deficiency anemia, unspecified; M05.79 Rheumatoid arthritis with rheumatoid factor of multiple sites without organ or systems involvement; F17.210 Nicotine dependence, cigarettes, uncomplicated; Z79.899 Other long term (current) drug therapy | CPT/HCPCS: 96127 ==

== ENCOUNTER 2024-09-19 12:33 | Inpatient (IN) | payer MEDICARE, SELFPAY ==
[2024-09-19] VITALS (10 sets, daily range): BP systolic 111–162; BP diastolic 60–88; PULSE 87–104; RESP 14–19; TEMP 36.2–36.5; O2SAT 94–99; BMI 20.8; BMI 19.4; BMI 18.6
--- NOTE | 2024-09-19 | ECG_ITS ---
Test Reason : ekg changes Blood Pressure : */* mmHG Vent. Rate : 93 BPM Atrial Rate : 93 BPM P-R Int : 114 ms QRS Dur : 76 ms QT Int : 396 ms P-R-T Axes : 66 59 103 degrees QTcB Int : 492 ms Normal sinus rhythm ST & T wave abnormality, consider anterolateral ischemia Abnormal ECG When compared with ECG of 19-Sep-2024 12:45, No significant change was found Referred By: Radha Murphy Electronically Signed By: AGUSTÍN EUGENE MD
--- NOTE | ~2024-09-19 | CT_ITS ---
CLINICAL HISTORY: fall in ed CT head without contrast Comparison: CT/SR - CT HEAD/BRAIN WO IV CON - 03/23/22 13:21 EST Findings: No intra-axial mass, midline shift, hydrocephalus, or acute hemorrhage. Left basal ganglia chronic lacunar infarct Moderate generalized cerebral volume loss and moderate chronic microvascular ischemic changes of the periventricular and subcortical white matter. The visualized paranasal sinuses and mastoid air cells are normal. The orbits are within normal limits. There is no acute fracture. IMPRESSION: 1. No acute intracranial findings specifically, no acute intracranial hemorrhage. 2. Left basal ganglia chronic lacunar infarct. 3. Moderate generalized cerebral volume loss and moderate chronic microvascular ischemic changes. This document has been electronically signed by: Crystal Cutler MD on 09/19/2024 22:47:40
--- NOTE | ~2024-09-19 | XR_ITS ---
CLINICAL HISTORY: Vomited ? Aspiration 1 view chest x-ray Comparison: CR - XR CHEST 1V - 09/19/24 21:48 EDT Findings: Heart size is normal. Atherosclerotic vascular disease of aortic arch. Lungs mildly hyperinflated with chronic interstitial changes. No consolidation, significant pleural effusion or pneumothorax. No acute fracture. Mild deformities of the left 5th and 6th ribs likely healed fractures. IMPRESSION: 1. No acute findings. This document has been electronically signed by: Lupe Morris MD on 09/20/2024 18:01:11
--- NOTE | ~2024-09-19 | XR_ITS ---
EXAMINATION: XR CHEST CLINICAL INFORMATION: abnormal breath sounds COMPARISON: August 31, 2024. TECHNIQUE: Frontal view of the chest was obtained. FINDINGS: Hyperinflated lungs. Bilateral apical lung scarring. Pulmonary reticular pattern. No consolidation, pleural effusion or pneumothorax. Cardiomediastinal silhouette size is small, unchanged. Calcified plaque thoracic aorta. Multilevel thoracic spondylosis. Osteopenia versus osteoporosis. XR/XR chest 1V IMPRESSION: 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 Superimposed mild interstitial lung edema versus small acute airway inflammatory process cannot be excluded. Electronically signed by: Lloyd Vidales MD 09/19/2024 03:42 PM EDT
--- NOTE | ~2024-09-19 | XR_ITS ---
EXAMINATION: XR CHEST CLINICAL INFORMATION: s/p pacemaker COMPARISON: 09/21/2024. TECHNIQUE: 2 views of the chest were obtained. FINDINGS: Dual lead pacemaker device left hemithorax, with leads extending into the right atrium and right ventricle. The cardiac, hilar, and mediastinal contours are normal. Aortic mural calcifications. The lungs are diffusely hyperaerated. There is minimal linear atelectasis in both lung bases. Lungs otherwise clear. There is no pneumothorax or pleural effusion. There is no focal osseous or soft tissue abnormality. Old bilateral rib fractures again noted. XR/XR chest 2V IMPRESSION: 1. Left dual lead pacemaker device in good position. 2. Hyperaerated lung parenchyma with linear atelectasis in both lung bases. No perceptible pneumothorax. Electronically signed by: Johnny Lockett MD 09/22/2024 10:19 AM EDT
--- NOTE | ~2024-09-19 | XR_ITS ---
CLINICAL HISTORY: r o aspiration, vomited supine 1 view chest x-ray Comparison: CR/CT/SR - XR CHEST 1V - 09/19/24 15:17 EDT Findings: No consolidation or effusion. Emphysema. Heart size is normal. No acute fracture. IMPRESSION: 1. No acute findings. 2. Emphysema. This document has been electronically signed by: Crystal Cutler MD on 09/19/2024 22:19:39
--- NOTE | ~2024-09-19 | XR_ITS ---
CLINICAL HISTORY: knee pain-chronic vs fall 2 view right knee Comparison: CR/SR - XR KNEE RT 4V - 03/23/22 13:37 EST Findings: No acute fracture. No dislocation. Moderate degenerative changes in the lateral tibiofemoral compartment. No erosions. Moderate joint effusion. Atherosclerotic vascular disease. No radiopaque foreign body. IMPRESSION: 1. No acute osseous findings. 2. Moderate degenerative changes lateral tibiofemoral compartment. 3. Moderate joint effusion. This document has been electronically signed by: Lupe Morris MD on 09/20/2024 17:59:33
--- NOTE | ~2024-09-19 | XR_ITS ---
CLINICAL HISTORY: s p pacemaker. R o pneumothorax --- 1 view chest x-ray Comparison: Chest x-ray from 09/20/2024. Findings: Mild bibasilar atelectasis/pneumonitis. No pleural effusion. Left-sided cardiac device is new with associated leads. No pneumothorax in this portable image. Bilateral rib deformities appear old/chronic with remodeling. Degenerative changes include imaged shoulders and imaged AC joints. IMPRESSION: 1. Mild bibasilar atelectasis. 2. No pneumothorax in this one view study. This document has been electronically signed by: David Michael MD on 09/21/2024 19:39:09
--- NOTE | ~2024-09-19 | CT_ITS ---
CLINICAL HISTORY: fall in ed CT cervical spine without contrast Comparison: CT/SR - CT CERVICAL SPINE WO IV CON - 03/23/22 13:21 EST Findings: Exaggerated cervical lordosis on a degenerative basis. Mild dextrocurvature at the cervicothoracic junction on degenerative basis. Moderate multilevel spondylosis with disc space narrowing, osteophytosis, and facet arthropathy Acute superior endplate burst fracture of the T3 vertebral body with proximally 30% height loss. No retropulsion. No acute findings on limited view of the intracranial contents. No cervical fluid collections or masses. Lung apices are clear. IMPRESSION: Acute superior endplate burst fracture of the T3 vertebral body with proximally 30% height loss. No retropulsion. This document has been electronically signed by: Crystal Cutler MD on 09/19/2024 22:39:38
--- NOTE | 2024-09-19 12:40 | ECG_ITS ---
Test Reason : syncope Blood Pressure : */* mmHG Vent. Rate : 86 BPM Atrial Rate : 86 BPM P-R Int : 114 ms QRS Dur : 90 ms QT Int : 420 ms P-R-T Axes : 65 46 89 degrees QTcB Int : 502 ms Normal sinus rhythm with Premature ventricular complexes T wave abnormality, consider anterior ischemia Prolonged QT Abnormal ECG When compared with ECG of 31-Aug-2024 13:12, T wave inversion now evident in Anterior leads Referred By: Generic ED Physician Electronically Signed By: AGUSTÍN EUGENE MD
--- NOTE | 2024-09-19 12:55 | ED_ITS ---
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 She reportedly went there for routine physical examination which was unremarkable. She states when she was in the parking lot she developed dizziness and lightheadedness. She had a syncopal event and lost consciousness, was lowered to the ground and did not fall or hit her head. She reports history of syncope in the past when she was very anemic. Today she has been NPO for her appointment. POC WNL per report. She denies any associated chest pain, palpitations, SOB, N/V/D, melena, fever, chills, abdominal pain. She had some slight dizziness ongoing when she came into the ER but overall feels much better. MD complaint: loss of consciousness and felt faint Onset (ago): minute(s) Prodromal symptoms: lightheaded Witnessed: Yes - by Bystander Injuries sustained associated with event: none Current symptoms: lightheaded History: previous syncopal episode Treatments prior to arrival: none Related Data Previous Rx's ?Medication ?Instructions ?Recorded cetirizine 10 mg tablet (Zyrtec) 10 mg PO DAILY 30 days #30 tabs 05/31/23 acetaminophen 325 mg tablet 650 mg (2 x 325 mg) PO Q6H PRN 11/23/23 pain #60 tabs albuterol sulfate 90 mcg/actuation 2 puff inhalation Q4-6H PRN 05/22/24 aerosol inhaler shortness of breath or wheezing 1 month #8.5 grams blood pressure monitor #1 ea 05/22/24 cyanocobalamin (vitamin B-12) 1,000 mcg sublingual DAILY #90 ea 05/22/24 1,000 mcg sublingual lozenge ferrous sulfate 325 mg (65 mg 325 mg PO BID 30 days #60 tabs 05/22/24 iron) tablet (Feosol) folic acid 1 mg tablet 1 mg PO DAILY #90 tabs 05/22/24 colchicine 0.6 mg tablet 0.6 mg PO BID #60 tabs 07/11/24 hydroxychloroquine 200 mg tablet 200 mg PO DAILY #90 tabs 07/11/24 cholecalciferol (vitamin D3) 125 125 mcg PO DAILY #90 caps 09/18/24 mcg (5,000 unit) capsule amlodipine 5 mg tablet 5 mg PO DAILY 90 days #90 tabs 09/19/24 omeprazole 20 mg capsule,delayed 20 mg PO DAILY 90 days #90 caps 09/19/24 release pravastatin 40 mg tablet 40 mg PO DAILY 90 days #90 tabs 09/19/24 ropinirole 1 mg tablet 2 mg (2 x 1 mg) PO TID #90 tabs 09/19/24 Allergies Allergy/AdvReac Type Severity Reaction Status Date / Time oxycodone [From OxyContin] Allergy Mild Hives Verified 09/19/24 12:49 Primeperole Allergy Mild Hives & Uncoded 09/19/24 11:13 Swollen legs Review of Systems 2 Review of Systems: Yes all other systems are reviewed and are negative [facility] Past Medical History Medical History 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 Social History Social History Household Members: None Housing: Apartment Are you a primary manager managed care to a significant other at home: No Do you presently have visiting nurse or other home services: No Alcohol intake: never Comment: pain related to RLS, medicated with requip Patient Tobacco Use Status: Current everyday Tobacco user Tobacco use type: Cigarette Cigarettes Per Day: 10 Years Smoked: 55 Smoked in Last 30 Days: Yes e-Cigarette/Vaping Use: Currently Using Second Hand Smoke Exposure: Yes Use of substances other than those prescribed or required for medical reasons: No Advance Directives: Yes Advance Directives on File: Yes Advance Directives Date on File: 09/10/23 service: No Current occupational status: retired 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 Oriented X3. No acute distress. Head: normocephalic, atraumatic. Eyes: Pupils equal, round and reactive to light. ENT: Pharynx normal. No tonsillar swelling or exudate. Neck: Normal inspection. Neck supple. CVS: Normal heart rate and rhythm. Pulses normal. Respiratory: No respiratory distress. Breath sound crackles at the right base. Abdomen: Soft and nontender. +BS x4 Skin: Skin warm and dry. Normal skin color. Normal skin turgor. No rashes. Extremities: No lower extremity edema. No joint swelling. Neuro/psych: Oriented X 3. No motor deficit. No sensory deficit. CN II-XII intact. Normal speech and cognition. Medical Decision Making Medical Decision Making MDM Narrative: 71-year-old female with a history of COPD, active smoking, history of recent admission here for acute blood loss anemia due to GI bleeding requiring blood transfusion who presents to the ER for evaluation of a syncopal episode today while leaving her doctors office. She was lightheaded and dizzy prior to losing consciousness. No injuries. She is feeling overall improved. Vital signs are stable on arrival. EKG done on arrival that is showing new T-wave inversions compared to prior. she has a prolonged QTC of 501. She has no chest pain. Her troponin is negative. Orthostatic vital signs are negative. She is awake, alert, nonfocal neurologically and is feeling back to baseline. Lab workup was unremarkable, no significant anemia. She denied any history of symptoms of GI bleeding at home. The only other episode of syncope she has had in the past when she was severely anemic. This seems like an unrelated event to that. Concern it may be cardiac in nature given her new EKG changes. Will plan to admit to the hospital for further evaluation and treatment. Patient is in agreement. Nicotine patch ordered as she concerned about nicotine withdrawal. Differential Diagnosis Differential Diagnoses: The differential diagnosis associated with the presentation includes Cardiac arrhythmia, orthostatic hypotension, acute blood loss anemia, dehydration, hypoglycemia, ACS, PE Admission/Observation Consideration of admission/observation: Escalation of care including admission/observation considered Consult Healthcare Provider Management of the patient was discussed with: Hospitalist Dr. Murphy Lab Data MDM Lab Attestation statement: I reviewed the patient's lab results. stable anemia which is mild, thrombocytosis which is chronic 09/19/24 13:08 09/19/24 13:08 Labs: Lab Results 09/19/24 09/19/24 Range/Units 13:07 13:08 WBC 5.5 (4.8-10.8) X10*3/uL RBC 3.97 L (4.20-5.50) X10*6/uL Hgb 9.2 L (12.0-16.0) g/dl Hct 30.8 L (37.0-47.0) % MCV 77.6 L (80.0-98.0) fL MCH 23.2 L (27.0-33.0) pg MCHC 29.9 L (31.0-35.0) g/dl RDW 21.2 H (11.0-16.0) % Plt Count 653 H (160-400) X10*3/uL MPV 8.8 L (9.4-12.3) fL Immature Gran % (Auto) 0.4 (0.0-0.4) % Neut % (Auto) 71.2 (45-73) % Lymph % (Auto) 18.3 L (20-40) % Claiborne % (Auto) 7.9 (2-11) % Eos % (Auto) 1.3 (0-4) % Baso % (Auto) 0.9 (0-2) % Lymph # (Auto) 1.0 L (1.2-4.9) X10*3/uL Claiborne # (Auto) 0.4 (0.1-1.2) X10*3/uL Eos # (Auto) 0.1 (0.0-0.4) X10*3/uL Baso # (Auto) 0.1 (0.0-0.2) X10*3/uL Abs Immat Gran (auto) 0.02 (0.00-0.03) X10*3/uL Absolute Neuts (auto) 3.9 (2.0-8.3) x10*3/uL Absolute Nucleated RBC 0.000 (0.0-0.012) X10*3/uL Nucleated RBC % (auto) 0.0 (0.0-0.2) /100WBC PT 11.3 (10.9-12.4) SEC INR 1.0 (0.9-1.1) APTT 25.6 L (26.0-36.8) SEC Sodium 135 (135-145) mmol/L Potassium 3.9 (3.3-5.1) mmol/L Chloride 104 (96-108) mmol/L Carbon Dioxide 21 L (22-29) mmol/L Anion Gap 14 (12-20) BUN 11 (9-16) mg/dL Creatinine 0.65 (0.5-1.4) mg/dL Estim Creat Clear Calc 53.8 Estimated GFR > 60 Random Glucose 107 (60-115) mg/dL Calcium 8.6 (8.4-10.2) mg/dL Magnesium 1.9 (1.6-2.6) mg/dL Total Bilirubin 0.3 (0.0-1.0) mg/dL Direct Bilirubin 0.1 (0.0-0.5) mg/dL AST 20 (5-31) U/L ALT < 6 (0-31) U/L Alkaline Phosphatase 65 (39-117) U/L Troponin I High Sens < 2.7 (<3.5-17.0) ng/L Total Protein 6.8 (6.5-8.0) g/dL Albumin 3.4 L (3.5-5.0) g/dL Lipase 27 (8-78) U/L Blood Type A Positive Antibody Screen POSITIVE Antibody Identification Inconclusive Crossmatch (AHG) See Detail Independent Interpretation I performed an independent interpretation of an: EKG Interpretation: EKG with normal sinus rhythm, ventricular rate 86 beats per minute, T-wave inversions in V1 to V4 which are new compared to prior. No ST segment elevations. QTC prolonged Independent Historian Clinical information obtained from an independent historian. History obtained from or confirmed by: EMS External Record Review External record reviewed: Inpatient record, Outpatient record, Prior outpatient labs and Prior outpatient radiology Tests considered The following testing was considered but not selected: considered CT of her head however she did not hit her head, no trauma, not on anticoagulation Chronic Conditions Patient?s care impacted by: Hypertension and Other ( COPD) Critical Care Time Critical Care Time Critical Care Time: Yes Total Critical Care Time: 32 Attestation: I have personally provided critical care time exclusive of time spent on separately billable procedures. Time includes review of lab data, radiology results, discussion with consultants, and monitoring for potential decompensation. Intervention performed as documented. Discharge Plan Discharge Clinical Impression: Syncope, Acute electrocardiogram changes Patient Disposition: Admitted As Inpatient Instructions: Syncope (DC) Prescriptions: No Action cholecalciferol (vitamin D3) 125 mcg (5,000 unit) capsule 125 mcg PO DAILY Qty: 90 1RF cetirizine [Zyrtec] 10 mg tablet 10 mg PO DAILY 30 Days Qty: 30 0RF acetaminophen 325 mg tablet 650 mg PO Q6H PRN (Reason: pain) Qty: 60 1RF hydroxychloroquine 200 mg tablet 200 mg PO DAILY Qty: 90 1RF colchicine 0.6 mg tablet 0.6 mg PO BID Qty: 60 4RF Rx Instructions: Start taking after completing the prednisone taper amlodipine 5 mg tablet 5 mg PO DAILY 90 Days Qty: 90 3RF omeprazole 20 mg capsule,delayed release(DR/EC) 20 mg PO DAILY 90 Days Qty: 90 3RF pravastatin 40 mg tablet 40 mg PO DAILY 90 Days Qty: 90 1RF ropinirole 1 mg tablet 2 mg PO TID Qty: 90 1RF albuterol sulfate 90 mcg/actuation HFA aerosol inhaler 2 puff inhalation Q4-6H PRN (Reason: shortness of breath or wheezing) 30 Days Qty: 8.5 4RF folic acid 1 mg tablet 1 mg PO DAILY Qty: 90 3RF cyanocobalamin (vitamin B-12) 1,000 mcg lozenge 1,000 mcg SUBLINGUAL DAILY Qty: 90 4RF ferrous sulfate [Feosol] 325 mg (65 mg iron) tablet 325 mg PO BID 30 Days Qty: 60 2RF (DME) blood pressure monitor Kit See Rx Instructions .Route Qty: 1 0RF Rx Instructions: check bp twice a week and when not feeling well Referrals: Burke Vazquez PA-C [Primary Care Provider] - 1 Week Print Language: Zimbabwean
[2024-09-19 13:13] LABS: MANUAL DIFF FLAG NO
[2024-09-19 13:19] LABS: Basophils Absolute Auto 0.1 X10*3/uL (0.0-0.2); Basophils Percent Auto 0.9 % (0-2); Eosinophils Absolute Auto 0.1 X10*3/uL (0.0-0.4); Eosinophils Percent Auto 1.3 % (0-4); Hematocrit 30.8 % (37.0-47.0); Hemoglobin 9.2 g/dl (12.0-16.0); Imm Gran Abs Auto 0.02 X10*3/uL (0.00-0.03); Imm Gran Pct Auto 0.4 % (0.0-0.4); Lymphocytes Percent Auto 18.3 % (20-40); Mean Corpuscular HGB Conc 29.9 g/dl (31.0-35.0); Mean Corpuscular Hemoglobin 23.2 pg (27.0-33.0); Mean Corpuscular Volume 77.6 fL (80.0-98.0); Mean Platelet Volume 8.8 fL (9.4-12.3); Monocytes Absolute Auto 0.4 X10*3/uL (0.1-1.2); Monocytes Percent Auto 7.9 % (2-11); Neutrophils Absolute Auto 3.9 x10*3/uL (2.0-8.3); Neutrophils Percent Auto 71.2 % (45-73); Platelet Count 653 X10*3/uL (160-400); Red Blood Count 3.97 X10*6/uL (4.20-5.50); Red Cell Distribution Width 21.2 % (11.0-16.0); White Blood Count 5.5 X10*3/uL (4.8-10.8)
[2024-09-19 13:22] LABS: Prothrombin Time 11.3 SEC (10.9-12.4)
[2024-09-19 13:25] LABS: Partial Thromboplastin Time 25.6 SEC (26.0-36.8)
[2024-09-19 13:37] LABS: Alanine Aminotransferase < 6 U/L (0-31); Albumin Level 3.4 g/dL (3.5-5.0); Alkaline Phosphatase 65 U/L (39-117); Anion Gap 14 (12-20); Aspartate Amino Transferase 20 U/L (5-31); Bilirubin Direct 0.1 mg/dL (0.0-0.5); Bilirubin Total 0.3 mg/dL (0.0-1.0); Blood Urea Nitrogen 11 mg/dL (9-16); Calcium 8.6 mg/dL (8.4-10.2); Carbon Dioxide 21 mmol/L (22-29); Chloride 104 mmol/L (96-108); Creatinine Clr Calc Pharmacy 53.8; Estimated Glomerular Filt Rate > 60; Glucose Random 107 mg/dL (60-115); Lipase 27 U/L (8-78); Magnesium 1.9 mg/dL (1.6-2.6); Potassium 3.9 mmol/L (3.3-5.1); Sodium 135 mmol/L (135-145); Total Protein 6.8 g/dL (6.5-8.0)
[2024-09-19 13:44] LABS: Troponin-I High Sensitivity < 2.7 ng/L (<3.5-17.0)
--- OUTSIDE RECORDS SUMMARY | 2024-09-19 14:21 | XMS_ITS | Encounter Summary ---
Author Organization [facility] Address [address] [place] [address] Care Team Providers Care Bit Grinder Name Role Phone John Diamond MD Primary Care Provide r Unavailable Jennifer Bhagat MD Primary Care Provider Unavailabl e [facility], Pcp Primary Care Provider Unavailabl e Reason for Visit * Reason Comments E-prescribe Rx Request Encounter Details Date Type Department Care Team Description 07/16/2020 Refill Adult Medicine [address] [id number] John Diamond MD E-prescribe Rx Request Social [...] / Plan: [place] / Product Type: MEDICARE [id number] documented in this encounter Plan of Treatment Not on file documented as of this encounter Visit Diagnoses Not on filedocumented in this encounter Care Teams Bit Grinder Relationship Specialty Start Date End Date John Diamond MD PCP - General Internal Medicine 01/03/19 Jennifer Bhagat MD PCP - General Anesthesiology 10/31/20 10/31/20 [facility], Liat PCP - General Internal Medicine 03/21/21 documented as of this encounter
--- OUTSIDE RECORDS SUMMARY | 2024-09-19 14:21 | XMS_ITS | Encounter Summary ---
Author [facility] Address [address] [place] [address] Care Team Providers Care Bundle Tier Name Role Phone John Diamond MD Primary Care Provide r Jennifer Winchester MD Primary Care Provider Unavailabl e [facility], Pcp Primary Care Provider Unavailabl e Reason for Visit * Reason Onset Date Comments Letter 02/13/2020 Encounter Details Date Type Department Care Team Description 02/13/2020 Telephone Adult Medicine [address] [address] John Diamond MD Letter Social History Tobacco [...] on filedocumented in this encounter Care Teams Bundle Tier Relationship Specialty Start Date End Date John Diamond MD PCP - General Internal Medicine 01/03/19 Jennifer Bhagat MD PCP - General Anesthesiology 10/31/20 10/31/20 [facility], Pcp PCP - General Internal Medicine 03/21/21 documented as of this encounter
--- OUTSIDE RECORDS SUMMARY | 2024-09-19 14:21 | XMS_ITS | Encounter Summary ---
Author Organization [facility] Address [address] [place] [address] Care Team Providers Care Pit Inspector Name Role Phone John Diamond MD Primary Care Provide r Jennifer Winchester MD Primary Care Provider Unavailabl e [facility], Pcp Primary Care Provider Unavailabl e Reason for Visit * Reason Onset Date Comments TEST RESULTS 02/22/2020 Encounter Details Date Type Department Care Team Description 02/22/2020 Telephone Adult Medicine [address] [address] oJhn Diamond MD TEST RESULTS Social History Tobacco [...] her back. Maybe someone on verbal can mixing picker tender a copy. thanks * Telephone Encounter - Devika Dudley PA-C - 02/22/2020 12:34 PM EDT The results were mailed to her home. There is already a letter in the computer. Are we able to fax this without MISA? * Telephone Encounter - Slime Herring - 02/22/2020 10:02 AM EDT Pt would like test results for covid faxed over to residential pt hasnt seen son cannot see son without results Fax documented in this encounter Plan of Treatment Not on file documented as of this encounter Visit Diagnoses Not on filedocumented in this encounter Care Teams Pit Inspector Relationship Specialty Start Date End Date John Diamond MD PCP - General Internal Medicine 01/03/19 Jennifer Bhagat MD PCP - General Anesthesiology 10/31/20 10/31/20 [facility], Pcp PCP - General Internal Medicine 03/21/21 documented as of this encounter
--- OUTSIDE RECORDS SUMMARY | 2024-09-19 14:21 | XMS_ITS | Encounter Summary ---
Author Organization [employer] [facility] Address [address] [place] [address] Care Team Providers Care Crematory Attendant Name Role Phone John Diamond MD Primary Care Provide r Unavailable Jennifer Bhagat MD Primary Care Provider Unavailabl e [facility], Pcp Primary Care Provider Unavailabl e Encounter Details Date Type Department Care Team Description 07/20/2019 [facility] Medical Records [address] [place] [id number] Lachelle Dean MD Social History Tobacco Use [...] on filedocumented in this encounter Care Teams Crematory Attendant Relationship Specialty Start Date End Date John Diamond MD PCP - General Internal Medicine 01/03/19 Jennifer Bhagat MD PCP - General Anesthesiology 10/31/20 10/31/20 [facility], Pcp PCP - General Internal Medicine 03/21/21 documented as of this encounter
--- OUTSIDE RECORDS SUMMARY | 2024-09-19 14:21 | XMS_ITS | Encounter Summary ---
Author Organization [facility] Address [address] [place] [address] Care Team Providers Care Needle Valve Operator Name Role Phone John Diamond MD Primary Care Provide r Unavailable Jennifer Bhagat MD Primary Care Provider Unavailabl e [facility], Pcp Primary Care Provider Unavailabl e Encounter Details Date Type Department Care Team Description 06/09/2019 [facility] Medical Records [address] [place] [id number] Richi Segundo MD Social History Tobacco Use [...] on filedocumented in this encounter Care Teams Needle Valve Operator Relationship Specialty Start Date End Date John Diamond MD PCP - General Internal Medicine 01/03/19 Jennifer Bhagat MD PCP - General Anesthesiology 10/31/20 10/31/20 [facility], Pcp PCP - General Internal Medicine 03/21/21 documented as of this encounter
--- OUTSIDE RECORDS SUMMARY | 2024-09-19 14:21 | XMS_ITS | Clinical Summary ---
Author Organization [facility] Address [address] [place] [address] Care Team Providers Care Odd Shoe Examiner Name Role Phone [facility], Pcp Primary Care [...] of Vaccination per patient), 03/25/2016 Care Teams Odd Shoe Examiner Relationship Specialty Start Date End Date [facility], Pcp PCP - General Internal Medicine 03/21/21
--- OUTSIDE RECORDS SUMMARY | 2024-09-19 14:22 | XMS_ITS | Encounter Summary ---
Author Organization [facility] Address [address] [place] [address] Care Team Providers Care Clam Sorter Name Role Phone Twan Worthington Primary Care Provider [phone] Katherine Catherine Primary Care Provider John Ayala MD Primary Care Provide r Unavailable Jennifer Bhagat MD [facility] Provider Unavailabl e Encounter Details Date Type Department Care Team Description 11/17/2013 Release of Information Medical Records [address] [place] [address] Abstract, Provider Social History Tobacco Use Types [...] on filedocumented in this encounter Care Teams Clam Sorter Relationship Specialty Start Date End Date Twan Worthington [address] [place] [address] PCP - General Pediatrics 10/30/13 04/19/18 Katherine Catherine [address] [place] [address] PCP - General Internal Medicine 04/20/18 01/02/19 John Diamond MD [address] [place] [address] PCP - General Internal Medicine 01/03/19 10/30/20 Jennifer Bhagat MD [address] [place] [address] PCP - General Anesthesiology 10/31/20 10/31/20 [facility], Pcp [address] [place] [address] PCP - General Internal Medicine 03/21/21 documented as of this encounter
--- OUTSIDE RECORDS SUMMARY | 2024-09-19 14:22 | XMS_ITS | Encounter Summary ---
Author Organization [facility] Address [address] [place] [address] Care Team Providers Care Tradeshow Worker Name Role Phone John Diamond MD Primary Care Provide r Unavailable Jennifer Bhagat MD Primary Care Provider Unavailabl e [facility], Pcp Primary Care Provider Unavailabl e Encounter Details Date Type Department Care Team Description 10/05/2019 Lang Interpreter Report Medical Records [address] [place] [id number] Carlos Orr MD Social History Tobacco Use [...] on filedocumented in this encounter Care Teams Tradeshow Worker Relationship Specialty Start Date End Date John Diamond MD PCP - General Internal Medicine 01/03/19 Jennifer Bhagat MD PCP - General Anesthesiology 10/31/20 10/31/20 [facility], Pcp PCP - General Internal Medicine 03/21/21 documented as of this encounter
--- OUTSIDE RECORDS SUMMARY | 2024-09-19 14:22 | XMS_ITS | Encounter Summary ---
Author Organization [facility] Address [address] [place] [address] Care Team Providers Care Tube Coater Name Role Phone John Diamond MD Primary Care Provide r Jennifer Winchester MD Primary Care Provider Unavailabl e [facility], Pcp Primary Care Provider Unavailabl e Reason for Visit * Reason Onset Date Comments medication problems 03/30/2019 Encounter Details Date Type Department Care Team Description 03/30/2019 Telephone Adult Medicine - [address] [address] Rose Marmolejo MD medication problems Social History Tobacco Use Types Packs/Day Years [...] encounter Miscellaneous Notes * Telephone Encounter - Shea Ceja L.P.N. - 03/30/2019 2:12 PM EST proi * Telephone Encounter - Verónica Urias - 03/30/2019 2:06 PM EST Who is calling? A pharmacist: Pharmacy: [facility] Pharmacist Name: Pharmacy Name of the medication Omeprazole 20 MG Tablet Delayed Release Dispersible What is the specific problem or interaction? Otc tabs not covered, try capsule? If the patient is having a problem with taking the med - how long has the problem been going on? N/A documented in this encounter Plan of Treatment Not on file documented as of this encounter Visit Diagnoses Not on filedocumented in this encounter Care Teams Tube Coater Relationship Specialty Start Date End Date John Diamond MD PCP - General Internal Medicine 01/03/19 Jennifer Bhagat MD PCP - General Anesthesiology 10/31/20 10/31/20 [facility], Pcp PCP - General Internal Medicine 03/21/21 documented as of this encounter
--- OUTSIDE RECORDS SUMMARY | 2024-09-19 14:22 | XMS_ITS | Encounter Summary ---
[facility] Address [address] [place] [address] Care Team Providers Care Wire Annealer Name Role Phone John Diamond MD Primary Care Provide r Unavailable Jennifer Bhagat MD Primary Care Provider Unavailabl e [facility], Pcp Primary Care Provider Unavailabl e Reason for Visit * Reason Comments E-prescribe Rx Request Encounter Details Date Type Department Care Team Description 04/21/2019 Refill Adult Medicine [address] [address] Rose Marmolejo MD E-prescribe Rx Request Social [...] it. She can continue with 1000 units [id number] vitamin D. * Telephone Encounter - Devika [...] N/A Patients current insurance carrier is: Payor: [facility] / Plan: [employer] P[employer] HMO $10 [facility] / Product Type: MEDICARE RISK documented in this encounter Plan of Treatment Not on file documented as of this encounter Results * 25 HYDROXY INCLUDES FRACTIONS IF PERFORMED (05/18/2019 9:40 AM EST) VITAMIN D, 25-HYDROXY 35 30 - 80 ng/mL 05/18/2019 3:18 PM EST [facility] 05/18/2019 9:40 AM EST 05/18/2019 9:40 AM EST John Diamond MD LAB Performing Organization Address City/State/[facility] Co de Phone Number [facility] Health documented in this encounter Visit Diagnoses Diagnosis Vitamin D deficiency- Primary Unspecified vitamin D deficiency documented in this encounter Care Teams Wire Annealer Relationship Specialty Start Date End Date John Diamond MD PCP - General Internal Medicine 01/03/19 Jennifer Bhagat MD PCP - General Anesthesiology 10/31/20 10/31/20 [facility], Pcp PCP - General Internal Medicine 03/21/21 documented as of this encounter
--- NOTE | 2024-09-19 15:08 | PC.NURSE ---
Assumed care of this patient at 1500, patient changed into hospital attire, placed on monitor technician. Plan for admission discussed w/ patient by JAMARI Mcclelland. Patient agreeable to admission. VSS, no complaints at this time.
[2024-09-19] MEDS: Nicotine 21 MG PATCH.TD24 TRANSDERMA (15:17)
--- NOTE | 2024-09-19 15:28 | P.HPHOSP_ITS ---
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 As per the patient she had syncopal event and loss of consciousness and was lowered to the ground - did not fell or hit her head.she was npo for going to her doctor appointment ,POC WNL per report(as per ed documentation). Her previous syncopal episode was when she was anemic with a hemoglobin of 3.8. Currently her H and H is around 9.2. 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 Superimposed mild interstitial lung edema versus small acute airway inflammatory process cannot be excluded. Denies any new complaint of chest pain or shortness of breath or abdominal pain or fever or chills or nausea or vomiting or cough or weakness or numbness. Review of Systems 2 Review of Systems: as above. 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 Surgical History S/P appendectomy H/O parathyroidectomy Status post hip surgery Social History Household Members: None Housing: Apartment Are you a primary animal care service worker to a significant other at home: No Do you presently have visiting nurse or other home services: No Alcohol intake: never Comment: pain related to RLS, medicated with requip Patient Tobacco Use Status: Current everyday Tobacco user Tobacco use type: Cigarette Cigarettes Per Day: 10 Years Smoked: 55 Smoked in Last 30 Days: Yes e-Cigarette/Vaping Use: Currently Using Second Hand Smoke Exposure: Yes Use of substances other than those prescribed or required for medical reasons: No Advance Directives: Yes Advance Directives on File: Yes Advance Directives Date on File: 09/10/23 service: No Current occupational status: retired 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 Current occupational exposures/hazards: No Cognitive needs: No Hearing needs: No Vision needs: Yes Meds Allergies Allergy/AdvReac Type Severity Reaction Status Date / Time oxycodone [From OxyContin] Allergy Mild Hives Verified 09/19/24 12:49 [place] Allergy Mild Hives & Uncoded 09/19/24 11:13 Swollen legs Active Medications: Current Medications Acetaminophen (Acetaminophen 325 Mg Tablet) 650 mg PO Q6H PRN PRN Reason: Pain, Mild 1-3,fever,headache Calcium Carbonate (Calcium Carbonate 750 Mg Tab.Chew) 750 mg PO Q4H PRN PRN Reason: Heartburn Magnesium Hydroxide (Milk Of Magnesia 30 Ml Oral.Susp) 30 ml PO DAILY PRN PRN Reason: Constipation Melatonin (Melatonin 3 Mg Tablet) 6 mg PO BEDTIME PRN PRN Reason: Insomnia Sodium Chloride (0.9 % Sodium Chloride Flush 3 Ml Syringe) 3 ml IVFLUSH QSHIFT [facility] Home Medications ?Medication ?Instructions ?Recorded ?Confirmed ?Last Taken ?Type omeprazole 20 mg capsule,delayed 20 mg PO DAILY@0630 09/19/24 09/19/24 09/19/24 History release Physical Exam 2 Vital Signs and Narrative: Vital Signs: Last Vital Signs Temp 97.7 F 09/19/24 12:46 Pulse 97 09/19/24 15:07 Resp 16 09/19/24 15:07 BP 151/88 H 09/19/24 15:07 Pulse Ox 98 09/19/24 15:07 O2 Del Method Room Air 09/19/24 15:07 BMI result Body Mass Index 20.8 Appearance: Alert.? Oriented X3.? . cvs: rrr, [id number] . res: clear to auscultation ,no wheezing or rales. abd: no rebound or guarding ,nt, bs present. ext pulses present , no cyanosis . neuro: axo3 , nonfocal. Results Labs 09/19/24 13:08 09/19/24 13:08 Labs: Laboratory Results - last 24 hr 09/19/24 09/19/24 13:07 13:08 MCV 77.6 L MCH 23.2 L MCHC 29.9 L RDW 21.2 H Plt Count 653 H MPV 8.8 L Immature Gran % (Auto) 0.4 Neut % (Auto) 71.2 Lymph % (Auto) 18.3 L [place] % (Auto) 7.9 Eos % (Auto) 1.3 Baso % (Auto) 0.9 Lymph # (Auto) 1.0 L [place] # (Auto) 0.4 Eos # (Auto) 0.1 Baso # (Auto) 0.1 Abs Immat Gran (auto) 0.02 Absolute Neuts (auto) 3.9 Absolute Nucleated RBC 0.000 Nucleated RBC % (auto) 0.0 PT 11.3 INR 1.0 APTT 25.6 L Anion Gap 14 Estim Creat Clear Calc 53.8 Estimated GFR > 60 Random Glucose 107 Calcium 8.6 Magnesium 1.9 Total Bilirubin 0.3 Direct Bilirubin 0.1 AST 20 ALT < 6 Alkaline Phosphatase 65 Total Protein 6.8 Albumin 3.4 L Lipase 27 Blood Type A Positive Antibody Screen POSITIVE Antibody Identification Inconclusive Crossmatch (AHG) See Detail Assessment and Plan (1) Syncope: Qualifiers: Syncope type: unspecified Qualified Code(s): R55 - Syncope and collapse Status: Acute (2) Acute electrocardiogram changes: Status: Acute Plan 79F PMH copd, duodenal AVMs, rheumatoid arthritis, htn, pseudogout, iron deficiency anemia, presented syncope syncope felt lighthedness before passing out ortostatics normal h/h stable bmp seems also fine plan: moniter on tele echo cardiology eval recent acute on chronic iron-deficiency anemia due to acute blood loss: h/h atble in 9.2 range continue ppi Rheumatoid arthritis Continue plaquenil COPD Stable DVT prophylaxis-mechanical due to anemia ongoing need for at least observation admission : syncope -need syncope workup, tele monitering anf cardiology eval Quality Stroke Does the patient have a stroke diagnosis?: No VTE Prior VTE?: No VTE Risk Level:: Medical - moderate - high VTE Device Contraindication: N/A - Device Ordered VTE Drug Contraindication: N/A - Med Ordered
[2024-09-19 16:24] LABS: Troponin-I High Sensitivity < 2.7 ng/L (<3.5-17.0)
--- NOTE | 2024-09-19 16:39 | PHA.MEDREC ---
Addendum entered by Claudia Constantino RPh 09/19/24 16:46: reviewed by [facility]. Original Note: Pharmacy Consult ? Medication Reconciliation Pharmacy has completed the medication reconciliation. Spoke to patient to confirm med list. Patient states she is no longer taking Amlodipine 5 mg, Cetirizine 10 mg, Colchicine 0.6 mg. Patient states she had all her morning medications today.
[2024-09-19] MEDS: Ferrous Sulfate 324 MG TABLET.DR PO (20:37)
[2024-09-19] MEDS: rOPINIRole HCL 2 MG TABLET PO (20:37)
--- NOTE | 2024-09-19 21:35 | PM.EVENT ---
Event Note Date of Service: 09/19/24 Event Note: I was notified by the nurse that patient was found on the floor in the hallway. She states that she had gotten up to use the restroom when she felt dizzy/lightheaded and passed out. She did hit her head on the floor. Patient had an unwitnessed fall due to orthostatic syncope. Obtaining CT head and cervical spine in the setting of trauma. Will resuscitate with IV crystalloids and repeat orthostatics in a.m.. Denies chest pain or palpitations prior to the fall. No rhythmic jerking movement of extremities. Cardiology eval pending Time Spent With Patient Time: Total time managing care of this patient today ____ minutes.
--- NOTE | 2024-09-19 21:44 | PC.NURSE ---
ED registration staff August walked to nurses' desk stating patient had fallen to the floor. Patient initially unresponsive, lifted back to stretcher, more responsive once placed on stretcher. Dr. Null at bedside. Patient vomited up approximately 2L of marrero emesis w/ chunks of vegetables. Able to tell staff she was trying to walk to BR when she suddenly felt faint and passed out. Dr. Seaman admitting provider made aware, at bedside to assess patient, patient ordered CT/XR, currently in CT right now. Plan for admission continues. VSS.
--- NOTE | 2024-09-19 22:03 | ECG_ITS ---
Test Reason : post fall Blood Pressure : */* mmHG Vent. Rate : 92 BPM Atrial Rate : 92 BPM P-R Int : 116 ms QRS Dur : 82 ms QT Int : 368 ms P-R-T Axes : 74 63 82 degrees QTcB Int : 455 ms Sinus rhythm with occasional Premature ventricular complexes ST & T wave abnormality, consider anterior ischemia Abnormal ECG Premature ventricular complexes are now Present Referred By: Mary Seaman Electronically Signed By: AGUSTÍN EUGENE MD
[2024-09-19] MEDS: Lactated Ringers 1,000 ML 100 ML IVCONT (22:21)
[2024-09-19 22:23] LABS: Glucose, Whole Blood 115 mg/dL (60-115)
[2024-09-19] MEDS: 0.9 % Sodium Chloride Flush 3 ML SYRINGE IVFLUSH (23:34)
[2024-09-20] VITALS (11 sets, daily range): BP systolic 136–160; BP diastolic 56–96; PULSE 83–100; RESP 14–20; TEMP 36–37.2; O2SAT 95–100; BMI 18.6
--- NOTE | 2024-09-20 | ECG_ITS ---
Test Reason : rapid response Blood Pressure : */* mmHG Vent. Rate : 91 BPM Atrial Rate : 91 BPM P-R Int : 118 ms QRS Dur : 86 ms QT Int : 392 ms P-R-T Axes : 50 60 93 degrees QTcB Int : 482 ms Normal sinus rhythm ST & T wave abnormality, consider anterior ischemia Prolonged QT Abnormal ECG When compared with ECG of 19-Sep-2024 22:14, Premature ventricular complexes are no longer Present Referred By: Radha Murphy Electronically Signed By: AGUSTÍN EUGENE MD
[2024-09-20] MEDS: Omeprazole 20 MG CAPSULE.DR PO (06:56)
--- NOTE | 2024-09-20 07:00 | CA_ITS ---
Transthoracic Echocardiogram Patient (Last, First, Middle): Yoli Londono A Gender: Female Date of : 1945 Age: 79 Procedure Date: 09/20/2024 Procedure Type: Transthoracic Echocardiogram Location: [facility] [place] Height: 154.94 cm Weight: 53.98 kg BSA: 1.52 m2 Heart Rate: 73 bpm BP: 151 / 88 mmHg District Plant Supervisor: ADDISON Saeed MD: Radha Murphy MD Beam Car[employer] Hauler Pusher: Delonte Muniz MD Symptoms: syncope Study Quality: Adequate ECG Rhythm: Sinus Conclusions: - 1. Normal LV ejection fraction 60 65% with impaired relaxation filling pattern 2. Calcific aortic and mitral valve changes noted with normal cardiac valvular Dopplers 3. No gross pericardial effusion Findings Left Ventricle Normal left ventricular size, thickness, and systolic function. The visually estimated ejection fraction is between 60-65%. Spectral Doppler is indicative of an impaired relaxation filling pattern. E/E prime ratio is between 8 and 15 consistent with indeterminate filling pressures. Right Ventricle Normal right ventricular cavity size and systolic function. Atria The left atrium is likely dilated. There is lipomatous hypertrophy of the interatrial septum. Interatrial shunt cannot be excluded. The right atrium is normal in size. Aortic Valve There is mild calcification of the aortic valve. There is no aortic valve stenosis. There is no aortic valve regurgitation. Mitral Valve There is moderate anterior and posterior mitral leaflet thickening. There is moderate anterior mitral annular calcification. There is moderate mitral annular calcification. There is trace mitral valve regurgitation. There is no mitral valve stenosis. Pulmonic Valve The pulmonic valve was not well visualized. Tricuspid Valve Likely normal tricuspid valve structure and function. Tricuspid regurgitation envelope is inadequate for calculation of right ventricular systolic pressure. Normal right atrial pressure. Great Vessels The aorta was not well visualized. The pulmonary artery was not well visualized. Venous The inferior vena cava is normal in size. Pericardium/Pleural There is no evidence of pericardial effusion. Prior Study Comparison No prior study available for comparison. Measurements 2D Linear Measurements IVSd: 0.97 0.6-0.9/0.6-1.0 cm LVIDd: 3.59 3.9-5.3/4.2-5.9 cm LVIDd Index: 2.36 2.4-3.2/2.2-3.1 cm/m2 LVIDs: 2.34 2.0-3.6 cm LVPWd: 0.94 0.7-1.1 cm LA Diam: 2.90 2.7-3.8/3.0-4.0 cm LAIDs Index: 1.91 1.5-2.3 cm/m2 LV Mass: 124.82 67-162/88-224 g LV Mass Index: 82.12 43-95/49-115 g/m2 LVOT Diam: 2.00 3.0+(-)1.3 cm Mitral Valve MV VTI: 0.38 MV Pk Heriberto: 1.55 MV Mn Heriberto: 0.92 MV Pk Grad: 10.00 MV Mn Grad: 4.00 MV Pk E: 0.93 MV PK A: 1.23 MV Decel Time: 238.00 E/A: 0.80 E'Lateral: 6.96 E'Medial: 5.77 E/E' Med: 16.10 E/E' Lat: 13.40 PHT: 70.00 MVA PHT: 3.14 MVA Continuity: 1.95 Decel [place]: 3.91 Aortic Valve AoV Pk Heriberto: 1.81 AoV Mn Heriberto: 1.28 AoV VTI: 0.34 AoV Pk Grad: 13.00 Aov Mn Grad: 7.00 PINKY Cont.VTI: 2.19 LVOT LVOT Pk Heriberto: 1.01 LVOT Mn Heriberto: 0.72 LVOT VTI: 0.24 LVOT Pk Grad: 4.00 LVOT Mn Grad: 2.00 LVOT Diam: 2.00 LVOT Area: 3.14 Diastolic Function MV Pk E: 0.93 MV Pk A: 1.23 E/A: 0.80 E'Medial: 5.77 E/E' Med: 16.10 E' Laterial: 6.96 E/E' Lat: 13.40 Right Ventricle TAPSE (mm): 23.40 TVS' Heriberto: 14.10 Tricuspid Valve RA Press: 3.00 Great Vessels Aorta Sinus of Valsalva: 3.20 2.0-3.5 cm Updated in Other Vendor System with Status of Final Delonte Muniz MD electronically signed on 09/20/2024 4:07:43 PM with status of Final
[2024-09-20] MEDS: Folic Acid 1 MG TABLET PO (08:40)
[2024-09-20] MEDS: Cholecalciferol (Vitamin D3) 25 MCG TABLET 125 MCG PO (08:40)
[2024-09-20] MEDS: rOPINIRole HCL 2 MG TABLET PO ×3 (08:40→19:51)
[2024-09-20] MEDS: Ferrous Sulfate 324 MG TABLET.DR PO ×2 (08:40→19:51)
[2024-09-20] MEDS: Cyanocobalamin (Vitamin B-12) 1,000 MCG TABLET 1000 MCG PO (08:40)
[2024-09-20] MEDS: Pravastatin Sodium 40 MG TABLET PO (08:40)
[2024-09-20] MEDS: Hydroxychloroquine Sulfate 200 MG TABLET PO (08:40)
[2024-09-20 09:29] LABS: Glucose, Whole Blood 110 mg/dL (60-115)
[2024-09-20 10:08] LABS: Hematocrit 30.5 % (37.0-47.0); Hemoglobin 9.1 g/dl (12.0-16.0); Mean Corpuscular HGB Conc 29.8 g/dl (31.0-35.0); Mean Corpuscular Hemoglobin 23.2 pg (27.0-33.0); Mean Corpuscular Volume 77.6 fL (80.0-98.0); Mean Platelet Volume 8.7 fL (9.4-12.3); Platelet Count 612 X10*3/uL (160-400); Red Blood Count 3.93 X10*6/uL (4.20-5.50); Red Cell Distribution Width 21.2 % (11.0-16.0); White Blood Count 5.2 X10*3/uL (4.8-10.8)
[2024-09-20 10:20] LABS: Anion Gap 13 (12-20); Blood Urea Nitrogen 9 mg/dL (9-16); Calcium 8.6 mg/dL (8.4-10.2); Carbon Dioxide 23 mmol/L (22-29); Chloride 105 mmol/L (96-108); Creatinine Clr Calc Pharmacy 52.6; Estimated Glomerular Filt Rate > 60; Glucose Random 105 mg/dL (60-115); Potassium 3.6 mmol/L (3.3-5.1); Sodium 137 mmol/L (135-145)
[2024-09-20 10:42] LABS: Troponin-I High Sensitivity < 2.7 ng/L (<3.5-17.0)
[2024-09-20 10:44] LABS: Thyroid Stimulating Hormone 2.15 uIU/mL (0.32-4.0)
--- NOTE | 2024-09-20 11:17 | PC.NURSE ---
2398 Dr Murphy and this RN were in room with patient discussing plan of care. While exiting the room patient reports need to void asking to get OOB pt was reminded to use purewick at this time. Minutes later this RN was called to room by staff for palor and lethargy at this time HR on tele dropped to low of 29 upon entering room patient was pale diaphoretic unresponsive for short period then began to vomit HOB elevated pressure at this time 74/51 Dr Murphy at bedside. C[employer]ER [employer]IENCE [employer]OCIATE called. EKG completed pt slowly becoming more alert and verbalizing with staff. Repeat pressure 140/82, bladder scan completed >476 patient was unable to void on own straight cath completed for 500. Patient resting in bed sleepy but easily arousable.
--- NOTE | 2024-09-20 11:34 | PM.CNCAR ---
History of Present Illness History of Present Illness Date of Service: 09/20/24 Requesting physician: Radha Murphy Consult reason: other (Syncope) Chief complaint: Syncope Narrative: I was consulted to see Leopoldo in cardiology consultation today for syncope episode. Patient is 79-year-old female with prior history of COPD, rheumatoid arthritis on Plaquenil as outpatient, hypertension, recently hospitalized with significant anemia related to acute GI bleeding. 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 She was transfused and subsequently sent home on iron therapy. Patient has had no other prior cardiac history. She denies any history of coronary artery disease or myocardial infarction. Denies any history of congestive heart failure. Patient said yesterday she was visiting her primary care physician and she walked out and was waiting for a ride and then she passed out. She felt like lightheaded and passed out. She does not remember the exact details to it whether she fell and was hurt but yesterday she was referred to the emergency room. In the emergency room she is doing okay heart rate was stable. She subsequently last night while in the emergency room with seems like she got out to go to the bathroom and she passed out. It was felt to be orthostatic hypotension at that point time. There were no significant bradycardia noted. However this morning while in bed, trying to go to bathroom, she had no discomfort and no significant urinary urgency she felt lightheaded. A rapid was called on her and she subsequently was noted to have significant bradycardia with heart rate in the upper 20s with junctional escape. This quickly resolved. Patient felt lightheaded and felt like she was going to pass out during this episode. She was laying in bed. She had no chest pain no other discomfort. The symptom resolved. Cardiology consult was sought for the same. On admission her EKG shows T-wave inversion in the anterior lead which could suggest ischemia or RV strain. She did not have any significant shortness of breath. Review of Systems Constitutional: Constitutional: Reports no additional constitutional complaints Eyes: Eyes: Reports no additional eye complaints Cardiovascular: Cardiovascular: Denies chest pain, Denies rapid heart rate, Denies leg edema, Reports lightheadedness, Reports Loss of Consciousness, Reports dyspnea on exertion and Reports slow heart rate Respiratory: Respiratory: Reports no additional respiratory complaints and Reports dyspnea on exertion Gastrointestinal: Gastrointestinal: Reports no additional gastrointestinal complaints Genitourinary: Genitourinary: Reports no additional female genitourinary complaints Neurologic: Reports system reviewed and no additional complaints, except as documented Psychiatric: Psychiatric: Reports no additional psychiatric complaints Endocrine: Endocrine: Reports no additional endocrine complaints Hematologic/Lymphatic: Hematologic/Lymphatic: Reports no additional hematologic/lymphatic complaints FOR[facility]LY [facility] Past Medical History Medical History 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 Surgical History Surgical History S/P appendectomy H/O parathyroidectomy Status post hip surgery Social History Social History Household Members: None Housing: Apartment Are you a primary managed care liaison to a significant other at home: No Do you presently have visiting nurse or other home services: No Alcohol intake: never Comment: 1:1 Patient Tobacco Use Status: Current everyday Tobacco user Tobacco use type: Cigarette Cigarettes Per Day: 10 Years Smoked: 55 e-Cigarette/Vaping Use: Currently Using Second Hand Smoke Exposure: Yes Advance Directives Date on File: 09/10/23 service: No Current occupational status: retired 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 Current occupational exposures/hazards: No Cognitive needs: No Hearing needs: No Vision needs: Yes Meds Allergies Allergy/AdvReac Type Severity Reaction Status Date / Time oxycodone [From OxyContin] Allergy Mild Hives Verified 09/19/24 12:49 [place] Allergy Mild Hives & Uncoded 09/19/24 11:13 Swollen legs Active Medications: Current Medications Acetaminophen (Acetaminophen 325 Mg Tablet) 650 mg PO Q6H PRN PRN Reason: Pain, Mild 1-3,fever,headache Albuterol Sulfate (Albuterol Sulfate 90 Mcg 8 Gm Inhaler) 2 puff INHALE Q4H PRN PRN Reason: shortness of breath or wheezing Calcium Carbonate (Calcium Carbonate 750 Mg Tab.Chew) 750 mg PO Q4H PRN PRN Reason: Heartburn Cyanocobalamin (Cyanocobalamin (Vitamin B-12) 1,000 Mcg Tablet) 1,000 mcg PO DAILY [facility] Last Admin: 09/20/24 08:40 Dose: 1,000 mcg Ferrous Sulfate (Ferrous Sulfate 324 Mg Tablet.) 324 mg PO BID [facility] Last Admin: 09/20/24 08:40 Dose: 324 mg Folic Acid (Folic Acid 1 Mg Tablet) 1 mg PO DAILY [facility] Last Admin: 09/20/24 08:40 Dose: 1 mg Hydroxychloroquine Sulfate (Hydroxychloroquine Sulfate 200 Mg Tablet) 200 mg PO DAILY [facility] Last Admin: 09/20/24 08:40 Dose: 200 mg Magnesium Hydroxide (Milk Of Magnesia 30 Ml Oral.Susp) 30 ml PO DAILY PRN PRN Reason: Constipation Melatonin (Melatonin 3 Mg Tablet) 6 mg PO BEDTIME PRN PRN Reason: Insomnia Omeprazole (Omeprazole 20 Mg Capsule.) 20 mg PO DAILY@0630 [facility] Last Admin: 09/20/24 06:56 Dose: 20 mg Pravastatin Sodium (Pravastatin Sodium 40 Mg Tablet) 40 mg PO DAILY [facility] Last Admin: 09/20/24 08:40 Dose: 40 mg Ropinirole HCl (Ropinirole Hcl 2 Mg Tablet) 2 mg PO TID [facility] Last Admin: 09/20/24 08:40 Dose: 2 mg Sodium Chloride (0.9 % Sodium Chloride Flush 3 Ml Syringe) 3 ml IVFLUSH QSHIFT [facility] Last Admin: 09/20/24 07:54 Dose: Not Given Vitamin D (Cholecalciferol (Vitamin D3) 25 Mcg Tablet) 125 mcg PO DAILY [facility] Last Admin: 09/20/24 08:40 Dose: 125 mcg Home Medications ?Medication ?Instructions ?Recorded ?Confirmed ?Last Taken ?Type omeprazole 20 mg capsule,delayed 20 mg PO DAILY@0630 09/19/24 09/19/24 09/19/24 History release Physical Exam Vital Signs: Vital Signs: Last Vital Signs Temp 97.3 F 09/20/24 11:00 Pulse 88 09/20/24 11:00 Resp 20 09/20/24 11:00 BP 146/71 H 09/20/24 11:00 Pulse Ox 97 09/20/24 11:00 O2 Del Method Room Air 09/20/24 11:00 BMI result Body Mass Index 18.6 Const: General: cooperative, comfortable, alert and awake Nutritional Appearance: thin Orientation/consciousness: patient oriented x3 HEENT: Head: Yes normocephalic and Yes atraumatic Neck: Neck: Yes trachea midline, Yes supple and Yes no JVD Resp: Effort & Inspection: normal respiratory effort Auscultation: crackles (Coarse) on the right at the base and diminished lung sounds Cardio: Jugular venous distension: no JVD Palpation: normal PMI Rate: regular rate Rhythm: regular rhythm Heart sounds: S1 normal heart sound present, S2 normal heart sound present, no click, no gallops and no murmurs GI: Auscultation: normal bowel sounds Skin: General skin exam: no rashes or lesions noted Neuro: General: patient oriented x3 and no focal motor deficits Extrem: General: Yes no clubbing, cyanosis or edema Objective Labs and Meds 09/20/24 09:51 09/20/24 09:51 Lab results: Laboratory Results - last 24 hr 09/19/24 09/19/24 09/19/24 13:07 13:08 15:47 WBC 5.5 RBC 3.97 L Hgb 9.2 L Hct 30.8 L MCV 77.6 L MCH 23.2 L MCHC 29.9 L RDW 21.2 H Plt Count 653 H MPV 8.8 L Immature Gran % (Auto) 0.4 Neut % (Auto) 71.2 Lymph % (Auto) 18.3 L Haskell % (Auto) 7.9 Eos % (Auto) 1.3 Baso % (Auto) 0.9 Lymph # (Auto) 1.0 L Haskell # (Auto) 0.4 Eos # (Auto) 0.1 Baso # (Auto) 0.1 Abs Immat Gran (auto) 0.02 Absolute Neuts (auto) 3.9 Absolute Nucleated RBC 0.000 Nucleated RBC % (auto) 0.0 PT 11.3 INR 1.0 APTT 25.6 L Sodium 135 Potassium 3.9 Chloride 104 Carbon Dioxide 21 L Anion Gap 14 BUN 11 Creatinine 0.65 Estim Creat Clear Calc 53.8 Estimated GFR > 60 POC Glucose Random Glucose 107 Calcium 8.6 Magnesium 1.9 Total Bilirubin 0.3 Direct Bilirubin 0.1 AST 20 ALT < 6 Alkaline Phosphatase 65 Troponin I High Sens < 2.7 < 2.7 Total Protein 6.8 Albumin 3.4 L Lipase 27 TSH Blood Type A Positive Antibody Screen POSITIVE Antibody Identification Inconclusive Crossmatch (AHG) See Detail 09/19/24 09/20/24 09/20/24 22:13 09:25 09:51 WBC 5.2 RBC 3.93 L Hgb 9.1 L Hct 30.5 L MCV 77.6 L MCH 23.2 L MCHC 29.8 L RDW 21.2 H Plt Count 612 H MPV 8.7 L Immature Gran % (Auto) Neut % (Auto) Lymph % (Auto) Haskell % (Auto) Eos % (Auto) Baso % (Auto) Lymph # (Auto) Haskell # (Auto) Eos # (Auto) Baso # (Auto) Abs Immat Gran (auto) Absolute Neuts (auto) Absolute Nucleated RBC 0.000 Nucleated RBC % (auto) 0.0 PT INR APTT Sodium 137 Potassium 3.6 Chloride 105 Carbon Dioxide 23 Anion Gap 13 BUN 9 Creatinine 0.62 Estim Creat Clear Calc 52.6 Estimated GFR > 60 POC Glucose 115 110 Random Glucose 105 Calcium 8.6 Magnesium Total Bilirubin Direct Bilirubin AST ALT Alkaline Phosphatase Troponin I High Sens < 2.7 Total Protein Albumin Lipase TSH 2.15 Blood Type Antibody Screen Antibody Identification Crossmatch (AHG) Imaging Radiologist's impression: Impressions Chest X-Ray 09/19/24 15:21 IMPRESSION: 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 Superimposed mild interstitial lung edema versus small acute airway inflammatory process cannot be excluded. Electronically signed by: Lloyd Vidales MD 09/19/2024 03:42 PM EDT Assessment and Plan (1) Syncope: Qualifiers: Syncope type: unspecified Qualified Code(s): R55 - Syncope and collapse Status: Acute Episodes of syncope yesterday while waiting for her ride while she was upright and subsequently having another syncopal episode while in the emergency while she was getting to the bathroom. Both these episodes were not monitored and no clear heart rate noted during that time. These both episodes could represent orthostatic syncope. She had recent hospitalization with significant GI bleed that was transfused and since then her hematocrit has remained stable including during this hospitalization although she remains anemic. There has been no other obvious source of bleeding in her. She does have overall limited oral intake. However this morning she had another episode of near-syncope while laying in bed with significant bradycardia. There was no clear noxious stimuli although she had to go to the bathroom but did not have significant discomfort. Vasovagal syncope is likely although the other 2 episodes were most suggestive of orthostatic syncope. Also possibility of sick sinus syndrome is likely in this elderly woman. Discussed with her about possible need for pacemaker. We discussed the procedure in detail including risks, benefits, alternatives. She is agreeable if she needs a pacemaker placement. I would 1st obtain an echocardiogram to assess for LV systolic function and wall motion abnormality and also RV strain. Continue supportive care. I would continue to hydrate her. Continue full disclosure cardiac telemetry. Keep her NPO past midnight. Will follow with you Procedures Date of Service Date of Service: 09/20/24
--- NOTE | 2024-09-20 12:41 | MHC.CLN ---
CONSULT PT IS MODERATELY MALNOURISHED PT WITH MILDLY DEPLETED BODY FAT WITH 27% SIGNIFICANT WT LOSS X1 YEAR AND CHRONIC POOR PO INTAKE X 1 MONTH PER PT DIET RX: 2GM NA-APPROPRIATE PT RECEPTIVE TO DRINKING ENSURE DALY FLAVOR SUPP TO PROVIDE 700KCALS, 40G PROTEIN MONITOR PO INTAKE AND ENCOURAGE SUPPLEMENTS SEE ALSO FULL CLINICAL NUTRITION ASSESSMENT
[2024-09-20] MEDS: Dextrose 5 % and 0.9 % NaCl 1,000 ML 80 ML IVCONT (12:50)
--- NOTE | 2024-09-20 12:53 | MHC.CM.PN ---
BETITO 09/20. Pt self-care, lives alone at home, received MOW's, and uses a cane and a walker. Pt will need assistance with transportation at discharge. HCP on file and verified. PCP: Burke KAUFFMAN
--- NOTE | 2024-09-20 16:39 | P.PNIM_ITS ---
Subjective Subjective Date of Service: 09/20/24 Interval History: syncopal episode /fall last night had another syncopal episode this morning Review of Systems no gi bleed episode. Orthostatics checked in the ED was negative rapid response: Patient was nauseated, somewhat sweaty and patient had significant bradycardia on tele, she was awake but few sec did not respond. Then patient was put on the lying position checked blood pressure was in 140s, fingersticks stable, EKG unchanged. Patient vomited, afterwards started talking. She denied any chest pain or shortness of breath. Physical Exam 2 Vital Signs: Vital Signs: Last Vital Signs Temp 97.3 F 09/20/24 11:00 Pulse 88 09/20/24 11:00 Resp 20 09/20/24 11:00 BP 146/71 H 09/20/24 11:00 Pulse Ox 97 09/20/24 11:00 O2 Del Method Room Air 09/20/24 11:00 BMI result Body Mass Index 18.6 Appearance: Alert.? Oriented X3.? cvs: [id number], [id number]. res: clear to auscultation ,no rales or wheezing abd: no rebound or guarding ,nt, bs present. ext pulses present , no cyanosis. neuro: axo3 , nonfocal. skin-no buises. Objective Data Active Medications Acetaminophen (Acetaminophen 325 Mg Tablet) 650 mg PO Q6H PRN PRN Reason: Pain, Mild 1-3,fever,headache Albuterol Sulfate (Albuterol Sulfate 90 Mcg 8 Gm Inhaler) 2 puff INHALE Q4H PRN PRN Reason: shortness of breath or wheezing Calcium Carbonate (Calcium Carbonate 750 Mg Tab.Chew) 750 mg PO Q4H PRN PRN Reason: Heartburn Cyanocobalamin (Cyanocobalamin (Vitamin B-12) 1,000 Mcg Tablet) 1,000 mcg PO DAILY [facility] Last Admin: 09/20/24 08:40 Dose: 1,000 mcg Documented By: DAVID Ferrous Sulfate (Ferrous Sulfate 324 Mg Tablet.) 324 mg PO BID [facility] Last Admin: 09/20/24 08:40 Dose: 324 mg Documented By: DAVID Folic Acid (Folic Acid 1 Mg Tablet) 1 mg PO DAILY [facility] Last Admin: 09/20/24 08:40 Dose: 1 mg Documented By: DAVID Hydroxychloroquine Sulfate (Hydroxychloroquine Sulfate 200 Mg Tablet) 200 mg PO DAILY [facility] Last Admin: 09/20/24 08:40 Dose: 200 mg Documented By: DAVID Dextrose/Sodium Chloride (D5ns) 1,000 mls @ 80 mls/hr IVCONT .[id number] [facility] Last Admin: 09/20/24 12:50 Dose: 80 mls/hr Documented By: GRIFFIN Magnesium Hydroxide (Milk Of Magnesia 30 Ml Oral.Susp) 30 ml PO DAILY PRN PRN Reason: Constipation Melatonin (Melatonin 3 Mg Tablet) 6 mg PO BEDTIME PRN PRN Reason: Insomnia Omeprazole (Omeprazole 20 Mg Capsule.Dr) 20 mg PO DAILY@0630 [facility] Last Admin: 09/20/24 06:56 Dose: 20 mg Documented By: ARNIE Pravastatin Sodium (Pravastatin Sodium 40 Mg Tablet) 40 mg PO DAILY [facility] Last Admin: 09/20/24 08:40 Dose: 40 mg Documented By: DAVID Ropinirole HCl (Ropinirole Hcl 2 Mg Tablet) 2 mg PO TID [facility] Last Admin: 09/20/24 15:36 Dose: 2 mg Documented By: ALEXSANDRA Sodium Chloride (0.9 % Sodium Chloride Flush 3 Ml Syringe) 3 ml IVFLUSH QSHIFT [facility] Last Admin: 09/20/24 16:01 Dose: Not Given Documented By: ALEXSANDRA Non-Admin Reason: Previously Administered Vitamin D (Cholecalciferol (Vitamin D3) 25 Mcg Tablet) 125 mcg PO DAILY [facility] Last Admin: 09/20/24 08:40 Dose: 125 mcg Documented By: DAVID Labs 09/20/24 09:51 09/20/24 09:51 Labs: Laboratory Results - last 24 hr 09/19/24 09/20/24 09/20/24 22:13 09:25 09:51 MCV 77.6 L MCH 23.2 L MCHC 29.8 L RDW 21.2 H Plt Count 612 H MPV 8.7 L Absolute Nucleated RBC 0.000 Nucleated RBC % (auto) 0.0 Anion Gap 13 Estim Creat Clear Calc 52.6 Estimated GFR > 60 POC Glucose 115 110 Random Glucose 105 Calcium 8.6 TSH 2.15 Assessment and Plan (1) Acute electrocardiogram changes: Status: Acute (2) Syncope: Status: Acute Plan 79F PMH copd, duodenal AVMs, rheumatoid arthritis, htn, pseudogout, iron deficiency anemia, presented syncope syncope syncope 2 episode ,also fall last night,another brief episode dizziness /bradycardia this morning ortostatics normal h/h stable bmp seems also fine echo:. Normal LV ejection fraction 60 65% with impaired relaxationfilling pattern . Calcific aortic and mitral valve changes noted with normal cardiac valvular Dopplers No gross pericardial effusion plan: moniter on tele cardiology eval noted -differntial could be sss vs vasovagal vs orthostasis moniter orthostasis vitals keep npo past midnight for possible pacemaker in am. Pacer at bedside, atropine for symptomatic bradycardia. cxr ordered ,pending syncope /fall: advised again rest ct head and neck reviewed: T3 spine fracture-possible acute: Patient does not have any pain or any neurological symptoms. Discussed above with [facility] neurosurgical team miss Kahn /currently patient is asymptomatic no further intervention and recommended PT evaluation. knee pain right side -she says its chronic will check knee xray recent acute on chronic iron-deficiency anemia due to acute blood loss: h/h atble in 9.2 range continue ppi Rheumatoid arthritis Continue plaquenil COPD Stable DVT prophylaxis-mechanical due to anemia Inpatient need : syncope /bradycardia: May need pacemaker. Quality Stroke Does the patient have a stroke diagnosis?: No VTE Prior VTE?: No VTE Risk Level:: Medical - moderate - high VTE Device Contraindication: N/A - Device Ordered VTE Drug Contraindication: N/A - Med Ordered
--- NOTE | 2024-09-20 18:15 | PC.NURSE ---
This RN present when Dr. Murphy discussed code status with patient. Patient currently choosing full code status.
[2024-09-20] MEDS: Nicotine 21 MG PATCH.TD24 TRANSDERMA (18:27)
[2024-09-20] MEDS: Acetaminophen 325 MG TABLET 975 MG PO (19:50)
[2024-09-20] MEDS: 0.9 % Sodium Chloride Flush 3 ML SYRINGE IVFLUSH (19:51)
[2024-09-21] VITALS (11 sets, daily range): BP systolic 135–180; BP diastolic 73–88; PULSE 81–111; RESP 16–20; TEMP 36–36.6; O2SAT 95–99
--- NOTE | 2024-09-21 | ECG_ITS ---
Test Reason : s/p pacemaker Blood Pressure : */* mmHG Vent. Rate : 99 BPM Atrial Rate : 99 BPM P-R Int : 130 ms QRS Dur : 84 ms QT Int : 368 ms P-R-T Axes : 66 44 88 degrees QTcB Int : 472 ms Poor data quality, interpretation may be adversely affected Normal sinus rhythm Nonspecific T wave abnormality Abnormal ECG When compared with ECG of 20-Sep-2024 09:21, T wave inversion less evident in Anterior leads Referred By: Caden Benavides Electronically Signed By: AGUSTÍN EUGENE MD
[2024-09-21] MEDS: Dextrose 5 % and 0.9 % NaCl 1,000 ML 80 ML IVCONT ×2 (03:01→21:00)
[2024-09-21] MEDS: Acetaminophen 325 MG TABLET 975 MG PO ×2 (06:48→20:04)
[2024-09-21] MEDS: Omeprazole 20 MG CAPSULE.DR PO (06:48)
[2024-09-21] MEDS: Cyanocobalamin (Vitamin B-12) 1,000 MCG TABLET 1000 MCG PO (08:14)
[2024-09-21] MEDS: Folic Acid 1 MG TABLET PO (08:14)
[2024-09-21] MEDS: rOPINIRole HCL 2 MG TABLET PO ×2 (08:14→20:04)
[2024-09-21] MEDS: Cholecalciferol (Vitamin D3) 25 MCG TABLET 125 MCG PO (08:14)
[2024-09-21] MEDS: Nicotine 21 MG PATCH.TD24 TRANSDERMA (08:14)
[2024-09-21] MEDS: Hydroxychloroquine Sulfate 200 MG TABLET PO (08:14)
[2024-09-21] MEDS: Pravastatin Sodium 40 MG TABLET PO (08:14)
[2024-09-21] MEDS: Ferrous Sulfate 324 MG TABLET.DR PO ×2 (08:14→20:05)
[2024-09-21] MEDS: Lidocaine 4 % Patch ADH..PATCH 1 PATCH TRANSDERMA (08:15)
--- NOTE | 2024-09-21 08:37 | HO.PM.IMPN ---
Subjective Subjective Date of Service: 09/21/24 Interval History: syncope Review of Systems no new symptoms denies any chest pain or sob Review of Systems: Yes all other systems are reviewed and are negative Physical Exam Vital Signs: Vital Signs: Last Vital Signs Temp 97.3 F 09/21/24 07:36 Pulse 90 09/21/24 07:36 Resp 20 09/21/24 07:36 BP 138/74 09/21/24 07:36 Pulse Ox 97 09/21/24 07:36 O2 Del Method Room Air 09/21/24 07:36 BMI result Body Mass Index 18.6 Appearance: Alert.? Oriented X3.? cvs: [id number], [id number]. res: clear to auscultation ,no rales or wheezing abd: no rebound or guarding ,nt, bs present. ext pulses present , no cyanosis. neuro: axo3 , nonfocal. skin-no buises. Objective Data Active Medications Acetaminophen (Acetaminophen 325 Mg Tablet) 975 mg PO Q6H [facility] Last Admin: 09/21/24 06:48 Dose: 975 mg Documented By: ARNIE Albuterol Sulfate (Albuterol Sulfate 90 Mcg 8 Gm Inhaler) 2 puff INHALE Q4H PRN PRN Reason: shortness of breath or wheezing Atropine Sulfate (Atropine Sulfate 1 Mg/10 Ml Syringe) 1 mg IVPUSH ONCE PRN PRN Reason: bradycardia Calcium Carbonate (Calcium Carbonate 750 Mg Tab.Chew) 750 mg PO Q4H PRN PRN Reason: Heartburn Cyanocobalamin (Cyanocobalamin (Vitamin B-12) 1,000 Mcg Tablet) 1,000 mcg PO DAILY [facility] Last Admin: 09/21/24 08:14 Dose: 1,000 mcg Documented By: PJ Ferrous Sulfate (Ferrous Sulfate 324 Mg Tablet.) 324 mg PO BID [facility] Last Admin: 09/21/24 08:14 Dose: 324 mg Documented By: PJ Folic Acid (Folic Acid 1 Mg Tablet) 1 mg PO DAILY [facility] Last Admin: 09/21/24 08:14 Dose: 1 mg Documented By: PJ Hydroxychloroquine Sulfate (Hydroxychloroquine Sulfate 200 Mg Tablet) 200 mg PO DAILY [facility] Last Admin: 09/21/24 08:14 Dose: 200 mg Documented By: PJ Dextrose/Sodium Chloride (D5ns) 1,000 mls @ 80 mls/hr IVCONT .[id number] [facility] Last Admin: 09/21/24 03:01 Dose: 80 mls/hr Documented By: ARNIE Lidocaine (Lidocaine 4 % Patch Adh..Patch) 1 patch TRANSDERMA DAILY [facility]; Protocol Last Admin: 09/21/24 08:15 Dose: 1 patch Documented By: PJ Magnesium Hydroxide (Milk Of Magnesia 30 Ml Oral.Susp) 30 ml PO DAILY PRN PRN Reason: Constipation Melatonin (Melatonin 3 Mg Tablet) 6 mg PO BEDTIME PRN PRN Reason: Insomnia Nicotine (Nicotine 21 Mg Patch.Td24) 21 mg TRANSDERMA DAILY [facility] Last Admin: 09/21/24 08:14 Dose: 21 mg Documented By: PJ Omeprazole (Omeprazole 20 Mg Capsule.Dr) 20 mg PO DAILY@0630 [facility] Last Admin: 09/21/24 06:48 Dose: 20 mg Documented By: ARNIE Pravastatin Sodium (Pravastatin Sodium 40 Mg Tablet) 40 mg PO DAILY [facility] Last Admin: 09/21/24 08:14 Dose: 40 mg Documented By: PJ Ropinirole HCl (Ropinirole Hcl 2 Mg Tablet) 2 mg PO TID [facility] Last Admin: 09/21/24 08:14 Dose: 2 mg Documented By: PJ Sodium Chloride (0.9 % Sodium Chloride Flush 3 Ml Syringe) 3 ml IVFLUSH QSHIFT [facility] Last Admin: 09/21/24 08:22 Dose: Not Given Documented By: PJ Non-Admin Reason: IV Running Vitamin D (Cholecalciferol (Vitamin D3) 25 Mcg Tablet) 125 mcg PO DAILY [facility] Last Admin: 09/21/24 08:14 Dose: 125 mcg Documented By: PJ Labs 09/20/24 09:51 09/20/24 09:51 Labs: Laboratory Results - last 24 hr 09/20/24 09/20/24 09:25 09:51 MCV 77.6 L MCH 23.2 L MCHC 29.8 L RDW 21.2 H Plt Count 612 H MPV 8.7 L Absolute Nucleated RBC 0.000 Nucleated RBC % (auto) 0.0 Anion Gap 13 Estim Creat Clear Calc 52.6 Estimated GFR > 60 POC Glucose 110 Random Glucose 105 Calcium 8.6 TSH 2.15 Assessment and Plan (1) Acute electrocardiogram changes: Status: Acute (2) Syncope: Status: Acute Plan 79F PMH copd, duodenal AVMs, rheumatoid arthritis, htn, pseudogout, iron deficiency anemia, presented syncope syncope syncope 2 episode ,3rd episode near syncope yesterday ortostatics normal h/h stable bmp seems also fine echo:. Normal LV ejection fraction 60 65% with impaired relaxationfilling pattern . Calcific aortic and mitral valve changes noted with normal cardiac valvular Dopplers .No gross pericardial effusion plan: moniter on tele cardiology eval noted -differential could be sss vs vasovagal. keep npo past midnight for possible pacemaker . cxr -No acute findings. syncope /fall: advised again rest ct head and neck reviewed: T3 spine fracture-possible acute: Patient does not have any pain or any neurological symptoms. Discussed above with [facility] neurosurgical team miss Kahn /currently patient is asymptomatic no further intervention and recommended PT evaluation. knee pain right side -she says its chronic will check knee xray recent acute on chronic iron-deficiency anemia due to acute blood loss: h/h atble in 9.2 range continue ppi Rheumatoid arthritis Continue plaquenil COPD Stable DVT prophylaxis-mechanical due to anemia Inpatient need : syncope /bradycardia: May need pacemaker. Quality Stroke Does the patient have a stroke diagnosis?: No VTE Prior VTE?: No VTE Risk Level:: Medical - moderate - high VTE Device Contraindication: N/A - Device Ordered VTE Drug Contraindication: N/A - Med Ordered
--- NOTE | 2024-09-21 11:39 | MHC.CM.PN ---
PT IS NOW I/P STATUS. IMM DELIVERED.
--- NOTE | 2024-09-21 12:20 | PM.PNCARD ---
Subjective Subjective Date of Service: 09/21/24 Principal diagnosis: Syncope, severe bradycardia Interval history: Overnight patient has not had any symptoms. No significant pauses noted. Hemodynamically stable. Review of Systems Review of Systems Yes all other systems are reviewed and are negative Physical Exam Vital Signs: Last Vital Signs Temp 97.8 F 09/21/24 11:16 Pulse 81 09/21/24 11:16 Resp 18 09/21/24 11:16 BP 144/76 H 09/21/24 11:16 Pulse Ox 99 09/21/24 11:16 O2 Del Method Room Air 09/21/24 11:16 BMI result Body Mass Index 18.6 Const General: cooperative, comfortable, alert and awake Nutritional Appearance: thin Orientation/consciousness: patient oriented x3 HEENT Head: Yes normocephalic and Yes atraumatic Neck Neck: Yes trachea midline, Yes supple and Yes no JVD Resp Effort & Inspection: normal respiratory effort Auscultation: crackles (Coarse) on the right at the base and diminished lung sounds Cardio Jugular venous distension: no JVD Palpation: normal PMI Rate: regular rate Rhythm: regular rhythm Heart sounds: S1 normal heart sound present, S2 normal heart sound present, no click, no gallops and no murmurs GI Auscultation: normal bowel sounds Skin General skin exam: no rashes or lesions noted Neuro General: patient oriented x3 and no focal motor deficits Extrem General: Yes no clubbing, cyanosis or edema Objective Labs and Meds 09/20/24 09:51 09/20/24 09:51 Progress Note: A&P Assessment and plan (1) Syncope: Status: Acute Assessment and Plan: Syncope witnessed with no cardiac monitoring and subsequently had near syncopal event while in hospital with significant bradycardia which was transient. Vasovagal is likely but more likely suggestive of sick sinus syndrome. Plan for undergoing dual chamber pacemaker placement this afternoon. Continue monitor hematocrit. Continue maintain adequate hydration. Will follow with you Time Spent With Patient Time: Total time managing care of this patient today ____ minutes. Progress Note: Quality Stroke Does the patient have a stroke diagnosis?: No Procedures Date of Service Date of Service: 09/21/24
[2024-09-21] MEDS: Lactated Ringers 1,000 ML 80 ML IVCONT (14:59)
--- NOTE | 2024-09-21 15:41 | P.CONAN_ITS ---
[facility] Active Problems Active Problems: All Active Problems Acute electrocardiogram changes (Acute) Syncope (Acute) Annual physical exam (Acute) Upper gastrointestinal bleeding (Acute) Severe anemia (Acute) Iron deficiency anemia due to chronic blood loss (Acute) Pseudogout involving multiple joints (Acute) Wheezing (Acute) Laboratory tests ordered as part of a complete physical exam (CPE) (Acute) Smoking history (Acute) Microcytic hypochromic anemia (Acute) Abnormal lung sounds (Acute) Synovial cyst of popliteal space [Bray], right knee (Acute) Cough (Acute) Hyperlipidemia (Acute) Normal physical examination, routine (Acute) Iron deficiency anemia (Acute) Immunization counseling (Acute) Abnormal colonoscopy (Acute) Colon cancer screening (Acute) Nicotine dependence (Acute) Long-term use of hydroxychloroquine (Acute) Fatigue (Acute) Osteoporosis (Acute) 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 Family history of problems with anesthesia: No Surgical History Surgical History S/P appendectomy H/O parathyroidectomy Status post hip surgery History of Problems with Anesthesia: No Social History Social History Household Members: None Housing: Apartment Are you a primary residential care facility manager to a significant other at home: No Do you presently have visiting nurse or other home services: No Alcohol intake: never Comment: 1:1 Patient Tobacco Use Status: Current everyday Tobacco user Tobacco use type: Cigarette Cigarette Packs Per Day: 0.5 Cigarettes Per Day: 10.0 Years Smoked: 55 Smoked in Last 30 Days: Yes e-Cigarette/Vaping Use: Currently Using Patient Interested in Nicotine Replacement: Yes Patient Given Instructions on How to Stop Smoking: No (Declined) Second Hand Smoke Exposure: No Use of substances other than those prescribed or required for medical reasons: No Currently Displaying Signs/Symptoms of Drug Intoxication Withdrawal: No Any prior treatment program specific to substance use: No Have you been hit, kicked, punched, or otherwise hurt by someone within the past year? If so, by whom?: No Do you feel safe in your current relationship?: No Current Relationship Is there a partner from a previous relationship who is making you feel unsafe now?: No Are you made to feel afraid or neglected: No Spiritual Healthcare Practices: None Are you DNR?: No Advance Directives: Yes Advance Directives Information Provided: No Advance Directives on File: Yes Advance Directives Date on File: 09/10/23 Do you have a plan to hurt others: No Plan Recently lost weight without trying: No Eating poorly because of decreased appetite: No Nutrition Risks: No Nutritional Risk Patient : No : No Poor oral hygiene: Yes service: No Current occupational status: retired 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 Current occupational exposures/hazards: No Cognitive needs: No Hearing needs: No Vision needs: Yes Meds Allergies Allergy/AdvReac Type Severity Reaction Status Date / Time oxycodone [From OxyContin] Allergy Mild Hives Verified 09/19/24 12:49 [place] Allergy Mild Hives & Uncoded 09/19/24 11:13 Swollen legs Active Medications: Current Medications Acetaminophen (Acetaminophen 325 Mg Tablet) 975 mg PO Q6H [facility] Last Admin: 09/21/24 14:39 Dose: Not Given Albuterol Sulfate (Albuterol Sulfate 90 Mcg 8 Gm Inhaler) 2 puff INHALE Q4H PRN PRN Reason: shortness of breath or wheezing Atropine Sulfate (Atropine Sulfate 1 Mg/10 Ml Syringe) 1 mg IVPUSH ONCE PRN PRN Reason: bradycardia Calcium Carbonate (Calcium Carbonate 750 Mg Tab.Chew) 750 mg PO Q4H PRN PRN Reason: Heartburn Cyanocobalamin (Cyanocobalamin (Vitamin B-12) 1,000 Mcg Tablet) 1,000 mcg PO DAILY [facility] Last Admin: 09/21/24 08:14 Dose: 1,000 mcg Ferrous Sulfate (Ferrous Sulfate 324 Mg Tablet.) 324 mg PO BID [facility] Last Admin: 09/21/24 08:14 Dose: 324 mg Folic Acid (Folic Acid 1 Mg Tablet) 1 mg PO DAILY [facility] Last Admin: 09/21/24 08:14 Dose: 1 mg Hydroxychloroquine Sulfate (Hydroxychloroquine Sulfate 200 Mg Tablet) 200 mg PO DAILY [facility] Last Admin: 09/21/24 08:14 Dose: 200 mg Dextrose/Sodium Chloride (D5ns) 1,000 mls @ 80 mls/hr IVCONT .[id number] [facility] Last Infusion: 09/21/24 15:13 Dose: Infused Lactated Ringer's (Lr) 1,000 mls @ 80 mls/hr IVCONT .[id number] [facility] Last Admin: 09/21/24 14:59 Dose: 80 mls/hr Lidocaine (Lidocaine 4 % Patch Adh..Patch) 1 patch TRANSDERMA DAILY [facility]; Protocol Last Admin: 09/21/24 08:15 Dose: 1 patch Magnesium Hydroxide (Milk Of Magnesia 30 Ml Oral.Susp) 30 ml PO DAILY PRN PRN Reason: Constipation Melatonin (Melatonin 3 Mg Tablet) 6 mg PO BEDTIME PRN PRN Reason: Insomnia Nicotine (Nicotine 21 Mg Patch.Td24) 21 mg TRANSDERMA DAILY [facility] Last Admin: 09/21/24 08:14 Dose: 21 mg Omeprazole (Omeprazole 20 Mg Capsule.Dr) 20 mg PO DAILY@06 [facility] Last Admin: 09/21/24 06:48 Dose: 20 mg Pravastatin Sodium (Pravastatin Sodium 40 Mg Tablet) 40 mg PO DAILY [facility] Last Admin: 09/21/24 08:14 Dose: 40 mg Ropinirole HCl (Ropinirole Hcl 2 Mg Tablet) 2 mg PO TID [facility] Last Admin: 09/21/24 14:41 Dose: Not Given Sodium Chloride (0.9 % Sodium Chloride Flush 3 Ml Syringe) 3 ml IVFLUSH QSHIFT [facility] Last Admin: 09/21/24 15:13 Dose: Not Given Vitamin D (Cholecalciferol (Vitamin D3) 25 Mcg Tablet) 125 mcg PO DAILY [facility] Last Admin: 09/21/24 08:14 Dose: 125 mcg Home Medications ?Medication ?Instructions ?Recorded ?Confirmed ?Last Taken ?Type omeprazole 20 mg capsule,delayed 20 mg PO DAILY@0630 09/19/24 09/19/24 09/19/24 History release Exam Height,Weight and Vital Signs: Height 5 ft 1 in Weight 44.6 kg Last Vital Signs Temp 97.3 F 09/21/24 14:52 Pulse 81 09/21/24 14:52 Resp 16 09/21/24 14:52 BP 180/87 H 09/21/24 14:52 Pulse Ox 98 09/21/24 14:52 O2 Del Method Room Air 09/21/24 14:52 Pertinent Lab Results Pertinent Lab Results: Laboratory Tests 09/19/24 09/19/24 09/19/24 13:07 13:08 15:47 WBC 5.5 RBC 3.97 L Hgb 9.2 L Hct 30.8 L MCV 77.6 L MCH 23.2 L MCHC 29.9 L RDW 21.2 H Plt Count 653 H MPV 8.8 L Immature Gran % (Auto) 0.4 Neut % (Auto) 71.2 Lymph % (Auto) 18.3 L [place] % (Auto) 7.9 Eos % (Auto) 1.3 Baso % (Auto) 0.9 Lymph # (Auto) 1.0 L [place] # (Auto) 0.4 Eos # (Auto) 0.1 Baso # (Auto) 0.1 Abs Immat Gran (auto) 0.02 Absolute Neuts (auto) 3.9 Absolute Nucleated RBC 0.000 Nucleated RBC % (auto) 0.0 PT 11.3 INR 1.0 APTT 25.6 L Sodium 135 Potassium 3.9 Chloride 104 Carbon Dioxide 21 L Anion Gap 14 BUN 11 Creatinine 0.65 Estim Creat Clear Calc 53.8 Estimated GFR > 60 POC Glucose Random Glucose 107 Calcium 8.6 Magnesium 1.9 Total Bilirubin 0.3 Direct Bilirubin 0.1 AST 20 ALT < 6 Alkaline Phosphatase 65 Troponin I High Sens < 2.7 < 2.7 Total Protein 6.8 Albumin 3.4 L Lipase 27 TSH Blood Type A Positive Antibody Screen POSITIVE Antibody Identification Inconclusive Crossmatch (AHG) See Detail 09/19/24 09/20/24 09/20/24 22:13 09:25 09:51 WBC 5.2 RBC 3.93 L Hgb 9.1 L Hct 30.5 L MCV 77.6 L MCH 23.2 L MCHC 29.8 L RDW 21.2 H Plt Count 612 H MPV 8.7 L Immature Gran % (Auto) Neut % (Auto) Lymph % (Auto) [place] % (Auto) Eos % (Auto) Baso % (Auto) Lymph # (Auto) [place] # (Auto) Eos # (Auto) Baso # (Auto) Abs Immat Gran (auto) Absolute Neuts (auto) Absolute Nucleated RBC 0.000 Nucleated RBC % (auto) 0.0 PT INR APTT Sodium 137 Potassium 3.6 Chloride 105 Carbon Dioxide 23 Anion Gap 13 BUN 9 Creatinine 0.62 Estim Creat Clear Calc 52.6 Estimated GFR > 60 POC Glucose 115 110 Random Glucose 105 Calcium 8.6 Magnesium Total Bilirubin Direct Bilirubin AST ALT Alkaline Phosphatase Troponin I High Sens < 2.7 Total Protein Albumin Lipase TSH 2.15 Blood Type Antibody Screen Antibody Identification Crossmatch (AHG) Airway Mallampati Class: II (edentulous) TM Dist: >3cm Neck ROM: Full Denture: Upper and Lower Loose/Missing/Broken Teeth: Yes, Upper and Lower Heart: RRR Lungs: distant BS Assessment and Plan Final Anesthetic Review Family History of Problems with Anesthesia: No History of Problems with Anesthesia: No NPO: Yes ASA Class: III Final Preanesthetic Review: Meds/Allgs Chart Reviewed, Consent Obtained/Reviewed and Anes Risks/Benef Reviewed Patient Risk: Intermediate Procedure Risk: Intermediate Anesthetic Plan Anesthetic Plan: GA Disposition: Standard PACU
--- NOTE | 2024-09-21 17:17 | P.CONCA_ITS ---
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 Surgical History Surgical History S/P appendectomy H/O parathyroidectomy Status post hip surgery Social History Social History Household Members: None Housing: Apartment Are you a primary health care recruiter to a significant other at home: No Do you presently have visiting nurse or other home services: No Alcohol intake: never Comment: 1:1 Patient Tobacco Use Status: Current everyday Tobacco user Tobacco use type: Cigarette Cigarette Packs Per Day: 0.5 Cigarettes Per Day: 10.0 Years Smoked: 55 Smoked in Last 30 Days: Yes e-Cigarette/Vaping Use: Currently Using Patient Interested in Nicotine Replacement: Yes Patient Given Instructions on How to Stop Smoking: No (Declined) Second Hand Smoke Exposure: No Use of substances other than those prescribed or required for medical reasons: No Currently Displaying Signs/Symptoms of Drug Intoxication Withdrawal: No Any prior treatment program specific to substance use: No Have you been hit, kicked, punched, or otherwise hurt by someone within the past year? If so, by whom?: No Do you feel safe in your current relationship?: No Current Relationship Is there a partner from a previous relationship who is making you feel unsafe now?: No Are you made to feel afraid or neglected: No Spiritual Healthcare Practices: None Are you DNR?: No Advance Directives: Yes Advance Directives Information Provided: No Advance Directives on File: Yes Advance Directives Date on File: 09/10/23 Do you have a plan to hurt others: No Plan Recently lost weight without trying: No Eating poorly because of decreased appetite: No Nutrition Risks: No Nutritional Risk Patient : No : No Poor oral hygiene: Yes service: No Current occupational status: retired 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 Current occupational exposures/hazards: No Cognitive needs: No Hearing needs: No Vision needs: Yes Meds Allergies Allergy/AdvReac Type Severity Reaction Status Date / Time oxycodone [From OxyContin] Allergy Mild Hives Verified 09/19/24 12:49 [place] Allergy Mild Hives & Uncoded 09/19/24 11:13 Swollen legs Active Medications: Current Medications Acetaminophen (Acetaminophen 325 Mg Tablet) 975 mg PO Q6H [facility] Last Admin: 09/21/24 14:39 Dose: Not Given Acetaminophen (Acetaminophen 325 Mg Tablet) 650 mg PO ONCE PRN PRN Reason: Pain, Mild (Pain Scale 1-3) Stop: 09/21/24 23:06 Albuterol Sulfate (Albuterol Sulfate 90 Mcg 8 Gm Inhaler) 2 puff INHALE Q4H PRN PRN Reason: shortness of breath or wheezing Albuterol/Ipratropium (Albuterol/Iprat 2.5/0.5mg 3 Ml Ampul.Neb) 3 ml INHALE ONCE PRN PRN Reason: Bronchospasm/wheezing Stop: 09/21/24 23:06 Atropine Sulfate (Atropine Sulfate 1 Mg/10 Ml Syringe) 1 mg IVPUSH ONCE PRN PRN Reason: bradycardia Calcium Carbonate (Calcium Carbonate 750 Mg Tab.Chew) 750 mg PO Q4H PRN PRN Reason: Heartburn Cyanocobalamin (Cyanocobalamin (Vitamin B-12) 1,000 Mcg Tablet) 1,000 mcg PO DAILY [facility] Last Admin: 09/21/24 08:14 Dose: 1,000 mcg Fentanyl (Fentanyl Citrate/Pf 100 Mcg/2 Ml Vial) 25 mcg IVPUSH Q5M PRN PRN Reason: Pain, Moderate to Severe (Pain Scale 4-10) Stop: 09/21/24 23:06 Ferrous Sulfate (Ferrous Sulfate 324 Mg Tablet.Dr) 324 mg PO BID [facility] Last Admin: 09/21/24 08:14 Dose: 324 mg Folic Acid (Folic Acid 1 Mg Tablet) 1 mg PO DAILY [facility] Last Admin: 09/21/24 08:14 Dose: 1 mg Hydroxychloroquine Sulfate (Hydroxychloroquine Sulfate 200 Mg Tablet) 200 mg PO DAILY [facility] Last Admin: 09/21/24 08:14 Dose: 200 mg Dextrose/Sodium Chloride (D5ns) 1,000 mls @ 80 mls/hr IVCONT .[id number] [facility] Last Infusion: 09/21/24 15:13 Dose: Infused Lactated Ringer's (Lr) 1,000 mls @ 80 mls/hr IVCONT .[id number] [facility] Last Admin: 09/21/24 14:59 Dose: 80 mls/hr Lidocaine (Lidocaine 4 % Patch Adh..Patch) 1 patch TRANSDERMA DAILY [facility]; Protocol Last Admin: 09/21/24 08:15 Dose: 1 patch Magnesium Hydroxide (Milk Of Magnesia 30 Ml Oral.Susp) 30 ml PO DAILY PRN PRN Reason: Constipation Melatonin (Melatonin 3 Mg Tablet) 6 mg PO BEDTIME PRN PRN Reason: Insomnia Naloxone HCl (Naloxone Hcl 0.4 Mg/Ml Vial) 0.04 mg IVPUSH Q5M PRN PRN Reason: Excessive sedation or RR < 8 Nicotine (Nicotine 21 Mg Patch.Td24) 21 mg TRANSDERMA DAILY [facility] Last Admin: 09/21/24 08:14 Dose: 21 mg Omeprazole (Omeprazole 20 Mg Capsule.Dr) 20 mg PO DAILY@06 [facility] Last Admin: 09/21/24 06:48 Dose: 20 mg Ondansetron HCl (Ondansetron Hcl 4 Mg/2 Ml Vial) 4 mg IVPUSH ONCE PRN PRN Reason: Nausea and Vomiting Stop: 09/21/24 23:06 Pravastatin Sodium (Pravastatin Sodium 40 Mg Tablet) 40 mg PO DAILY [facility] Last Admin: 09/21/24 08:14 Dose: 40 mg Ropinirole HCl (Ropinirole Hcl 2 Mg Tablet) 2 mg PO TID [facility] Last Admin: 09/21/24 14:41 Dose: Not Given Sodium Chloride (0.9 % Sodium Chloride Flush 3 Ml Syringe) 3 ml IVFLUSH QSHIFT [facility] Last Admin: 09/21/24 15:13 Dose: Not Given Vitamin D (Cholecalciferol (Vitamin D3) 25 Mcg Tablet) 125 mcg PO DAILY [facility] Last Admin: 09/21/24 08:14 Dose: 125 mcg Home Medications ?Medication ?Instructions ?Recorded ?Confirmed ?Last Taken ?Type omeprazole 20 mg capsule,delayed 20 mg PO DAILY@0630 09/19/24 09/19/24 09/19/24 History release Physical Exam 2 Vital Signs: Vital Signs: Last Vital Signs Temp 97.3 F 09/21/24 14:52 Pulse 81 09/21/24 14:52 Resp 16 09/21/24 14:52 BP 180/87 H 09/21/24 14:52 Pulse Ox 98 09/21/24 14:52 O2 Del Method Room Air 09/21/24 14:52 BMI result Body Mass Index 18.6 Const: General: cooperative Orientation/consciousness: oriented to person Eyes: Conjunctivae: conjunctivae normal Neck: Neck: Yes normal visual inspection Resp: Effort & Inspection: normal respiratory effort Cardio: Palpation: normal PMI GI: Inspection: Yes normal to inspection Neuro: General: oriented to person Psych: Appearance: grossly normal Objective Labs and Meds 09/20/24 09:51 09/20/24 09:51 Assessment and Plan (1) Acute electrocardiogram changes: Status: Acute (2) Syncope: Qualifiers: Syncope type: unspecified Qualified Code(s): R55 - Syncope and collapse Status: Acute (3) Smoking history: Status: Acute (4) Sinus node dysfunction: Status: Acute Plan Plan for dual chamber pacemaker implantation today. Risks, benefits, and alternatives discussed with the patient. We mutually decided to proceed forward with the procedure. Procedures Date of Service Date of Service: 09/21/24
--- NOTE | 2024-09-21 18:42 | P.OP_ITS ---
Operative Note Operative Note Date of Service: 09/21/24 Narrative: Indication: Sinus node dysfunction Syncope Summary: [employer]onic dual chamber pacemaker implantation (CPT 23678) Narrative: Patient presented to the EP lab in a fasting, nonsedated state after written informed consent was verified. A timeout was called prior to beginning of the case. The procedure was performed under general anesthesia. 2g IV Ancef was initiated prior to skin incision. The patient was prepped and draped in the usual sterile fashion. A 1-inch incision was made medial the left deltopectoral groove. A pocket was created using a combination of electrocautery and blunt dissection. The left subclavian vein was accessed with a micropuncture needle after 10 cc of IV contrast was injected. Two seperate accesses were obtained under fluoroscopic guidance. The RV lead was advanced to the low RV septum using a combination of straight and curved stylets. The active fixation mechanism was extended in the usual manner. Lead parameters (sensing, current of injury, impedance, and capture threshold) were noted to be excellent. The RA lead was advanced to the RAA using a combination of straight and curved stylets. The active fixation mechanism was extended in the usual manner. Lead parameters (sensing, current of injury, impedance, and capture threshold) were noted to be excellent. Adequate slack was confirmed on both leads.? The leads were secured to the underlying pectoralis muscle with 0-Ethibond sutures. The pocket was flushed with IV antibiotic irrigant. Any bleeders in the pocket were controlled with electrocautery. The leads were inserted into the respective ports of the pacemaker generator and locked using the provided wrench. The generator was then placed within the pocket and the leads were wrapped underneath the generator. The pocket was closed in 3 layers: 2-0 Vicryl followed by 4-0 V-Loc. Exofin was applied over the incision site. Gauze and tegaderm was then applied over the incision site.?f Procedure start: 5:33 PM Procedure end: 6:40 PM Recommendations: 1. Keep the chest incision site dry for 7 days. 2. No lifting more than 10 lbs with the left arm. 3. No raising the left arm above shoulder level or reaching behind the back.? 4. Wear the left arm sling continuously for 24 hours, then wear only when sleeping for 2 weeks. 5. No driving for 2 weeks. 6. Continue other home meds as before. 7. Follow up in EP clinic in 7-10 days for incision site check. Follow up with [facility] as scheduled.?
[2024-09-22] MEDS: Acetaminophen 325 MG TABLET 975 MG PO ×3 (02:12→14:33)
[2024-09-22] MEDS: 0.9 % Sodium Chloride Flush 3 ML SYRINGE IVFLUSH ×2 (02:16→20:20)
[2024-09-22 02:44] VITALS: BP 155/72; PULSE 87; RESP 18; TEMP 36; O2SAT 98
[2024-09-22] MEDS: Omeprazole 20 MG CAPSULE.DR PO (06:01)
[2024-09-22 07:41] VITALS: BP 161/73; PULSE 87; RESP 20; TEMP 36.4; O2SAT 96
[2024-09-22] MEDS: Cholecalciferol (Vitamin D3) 25 MCG TABLET 125 MCG PO (08:51)
[2024-09-22] MEDS: Ferrous Sulfate 324 MG TABLET.DR PO ×2 (08:51→20:14)
[2024-09-22] MEDS: Pravastatin Sodium 40 MG TABLET PO (08:51)
[2024-09-22] MEDS: rOPINIRole HCL 2 MG TABLET PO ×3 (08:52→20:13)
[2024-09-22] MEDS: Hydroxychloroquine Sulfate 200 MG TABLET PO (08:52)
[2024-09-22] MEDS: Folic Acid 1 MG TABLET PO (08:52)
[2024-09-22] MEDS: Nicotine 21 MG PATCH.TD24 TRANSDERMA (08:52)
[2024-09-22] MEDS: Cyanocobalamin (Vitamin B-12) 1,000 MCG TABLET 1000 MCG PO (08:52)
[2024-09-22] MEDS: Lidocaine 4 % Patch ADH..PATCH 1 PATCH TRANSDERMA (08:53)
[2024-09-22] MEDS: Dextrose 5 % and 0.9 % NaCl 1,000 ML 80 ML IVCONT (09:00)
--- NOTE | 2024-09-22 10:43 | PM.PNCARD ---
Subjective Subjective Date of Service: 09/22/24 Principal diagnosis: Syncope, severe bradycardia Interval history: Patient is status post pacemaker yesterday. Pacemaker is working well. Review of Systems Review of Systems Yes all other systems are reviewed and are negative Physical Exam Vital Signs: Last Vital Signs Temp 97.6 F 09/22/24 07:41 Pulse 87 09/22/24 07:41 Resp 20 09/22/24 07:41 BP 161/73 H 09/22/24 07:41 Pulse Ox 96 09/22/24 07:41 O2 Del Method Room Air 09/22/24 07:41 BMI result Body Mass Index 18.6 Const General: cooperative, comfortable, alert and awake Nutritional Appearance: thin Orientation/consciousness: patient oriented x3 HEENT Head: Yes normocephalic and Yes atraumatic Neck Neck: Yes trachea midline, Yes supple and Yes no JVD Chest Chest palpation & inspection: other (Pacemaker pocket shows slight swelling otherwise okay) Resp Effort & Inspection: normal respiratory effort Auscultation: crackles (Coarse) on the right at the base and diminished lung sounds Cardio Jugular venous distension: no JVD Palpation: normal PMI Rate: regular rate Rhythm: regular rhythm Heart sounds: S1 normal heart sound present, S2 normal heart sound present, no click, no gallops and no murmurs GI Auscultation: normal bowel sounds Skin General skin exam: no rashes or lesions noted Neuro General: patient oriented x3 and no focal motor deficits Extrem General: Yes no clubbing, cyanosis or edema Objective Labs and Meds 09/20/24 09:51 09/20/24 09:51 Imaging Radiologist's impression: Impressions Chest X-Ray 09/22/24 09:00 IMPRESSION: 1. Left dual lead pacemaker device in good position. 2. Hyperaerated lung parenchyma with linear atelectasis in both lung bases. No perceptible pneumothorax. Electronically signed by: Johnny Lockett MD 09/22/2024 10:19 AM EDT RP Progress Note: A&P Assessment and plan (1) Sinus node dysfunction: Status: Acute Assessment and Plan: Syncope with sick sinus syndrome. Patient status post dual-chamber pacemaker. Doing well. From cardiac perspective after PT consult can be discharged home. She has anemia and EKG changes. Echo does not show any major wall motion abnormality RV dysfunction. Will need ischemic workup which could will be pursued as an outpatient. Will follow up with her as outpatient. Time Spent With Patient Time: Total time managing care of this patient today ____ minutes. Progress Note: Quality Stroke Does the patient have a stroke diagnosis?: No Procedures Date of Service Date of Service: 09/22/24
[2024-09-22 10:56] VITALS: BP 161/73; PULSE 87; O2SAT 96
[2024-09-22 11:29] VITALS: BP 146/79; PULSE 92; RESP 20; TEMP 36.4; O2SAT 97
--- NOTE | 2024-09-22 12:06 | MHC.CLN ---
F/U PT IS MODERATELY MALNOURISHED SEE FULL CLINICAL NUTRITION ASSESSMENT DATED 09/20/24 PO INTAKE 30% AVERAGE DIET RX: REGULAR-APPROPRIATE PT RECEPTIVE TO DRINKING ENSURE DALY FLAVOR SUPP TO PROVIDE 700KCALS, 40G PROTEIN OBSERVED PT WITH ENSURE AT BEDSIDE OPEN WILL RE-START ENSURE BID WITH CURRENT DIET ORDER MONITOR PO INTAKE AND ENCOURAGE SUPPLEMENTS
--- NOTE | 2024-09-22 13:06 | MHC.CM.PN ---
EMR REVIEWED AND PER MD ROUNDS, PT WILL HAVE P.T. EVAL TO DETERMINE DC NEEDS. P.T. REC. STR AND PT REQUESTS A CONTRACTED CENTER CLOSE TO HER HOME. [facility] IS OFFERING A BED PENDING INSURANCE AUTH. CENTER HAS BEGUN AUTH PROCESS AND MADE AWARE. CM WILL AWAIT INSURANCE AUTH.
--- NOTE | 2024-09-22 13:32 | HO.POSTANES ---
Post Anesthesia Evaluation Post Anesthesia Evaluation Date of Service: 09/22/24 Vital Signs: Vital Signs Temp Pulse Resp BP Pulse Ox O2 Del Method 09/22/24 11:29 97.5 F 92 20 146/79 H 97 Room Air 09/22/24 10:56 87 161/73 H 96 09/22/24 07:41 97.6 F 87 20 161/73 H 96 Room Air 09/22/24 02:44 96.8 F 87 18 155/72 H 98 Room Air Anesthesia: General Mental Status: Awake Pain Control: Satisfactory Nausea/Vomiting: None Hydration: Adequate Anesthesia-Related Issues: No Anes. Related Issues
[2024-09-22 15:35] VITALS: BP 147/78; PULSE 91; RESP 18; TEMP 36.6; O2SAT 99
--- NOTE | 2024-09-22 16:49 | P.PNIM_ITS ---
Subjective Subjective Date of Service: 09/22/24 Interval History: syncope Review of Systems no new symptoms denies any chest pain or sob Review of Systems: Yes all other systems are reviewed and are negative Physical Exam 2 Vital Signs: Vital Signs: Last Vital Signs Temp 97.9 F 09/22/24 15:35 Pulse 91 09/22/24 15:35 Resp 18 09/22/24 15:35 BP 147/78 H 09/22/24 15:35 Pulse Ox 99 09/22/24 15:35 O2 Del Method Room Air 09/22/24 15:35 BMI result Body Mass Index 18.6 Appearance: Alert.? Oriented X3.? cvs: rrr, [id number]. left pectoral chest -pacemaker area seems clean ,no erythema res: clear to auscultation ,no rales or wheezing abd: no rebound or guarding ,nt, bs present. ext pulses present , no cyanosis. neuro: axo3 , nonfocal. skin-no buises. Objective Data Active Medications Acetaminophen (Acetaminophen 325 Mg Tablet) 975 mg PO Q6H [facility] Last Admin: 09/22/24 14:33 Dose: 975 mg Documented By: PJ Albuterol Sulfate (Albuterol Sulfate 90 Mcg 8 Gm Inhaler) 2 puff INHALE Q4H PRN PRN Reason: shortness of breath or wheezing Atropine Sulfate (Atropine Sulfate 1 Mg/10 Ml Syringe) 1 mg IVPUSH ONCE PRN PRN Reason: bradycardia Calcium Carbonate (Calcium Carbonate 750 Mg Tab.Chew) 750 mg PO Q4H PRN PRN Reason: Heartburn Cyanocobalamin (Cyanocobalamin (Vitamin B-12) 1,000 Mcg Tablet) 1,000 mcg PO DAILY [facility] Last Admin: 09/22/24 08:52 Dose: 1,000 mcg Documented By: PJ Ferrous Sulfate (Ferrous Sulfate 324 Mg Tablet.) 324 mg PO BID [facility] Last Admin: 09/22/24 08:51 Dose: 324 mg Documented By: PJ Folic Acid (Folic Acid 1 Mg Tablet) 1 mg PO DAILY [facility] Last Admin: 09/22/24 08:52 Dose: 1 mg Documented By: PJ Hydroxychloroquine Sulfate (Hydroxychloroquine Sulfate 200 Mg Tablet) 200 mg PO DAILY [facility] Last Admin: 09/22/24 08:52 Dose: 200 mg Documented By: PJ Lidocaine (Lidocaine 4 % Patch Adh..Patch) 1 patch TRANSDERMA DAILY [facility]; Protocol Last Admin: 09/22/24 08:53 Dose: 1 patch Documented By: PJ Magnesium Hydroxide (Milk Of Magnesia 30 Ml Oral.Susp) 30 ml PO DAILY PRN PRN Reason: Constipation Melatonin (Melatonin 3 Mg Tablet) 6 mg PO BEDTIME PRN PRN Reason: Insomnia Naloxone HCl (Naloxone Hcl 0.4 Mg/Ml Vial) 0.04 mg IVPUSH Q5M PRN PRN Reason: Excessive sedation or RR < 8 Nicotine (Nicotine 21 Mg Patch.Td24) 21 mg TRANSDERMA DAILY [facility] Last Admin: 09/22/24 08:52 Dose: 21 mg Documented By: PJ Omeprazole (Omeprazole 20 Mg Capsule.) 20 mg PO DAILY@0630 [facility] Last Admin: 09/22/24 06:01 Dose: 20 mg Documented By: AMELIA Pravastatin Sodium (Pravastatin Sodium 40 Mg Tablet) 40 mg PO DAILY [facility] Last Admin: 09/22/24 08:51 Dose: 40 mg Documented By: PJ Ropinirole HCl (Ropinirole Hcl 2 Mg Tablet) 2 mg PO TID [facility] Last Admin: 09/22/24 14:33 Dose: 2 mg Documented By: PJ Sodium Chloride (0.9 % Sodium Chloride Flush 3 Ml Syringe) 3 ml IVFLUSH QSHIFT [facility] Last Admin: 09/22/24 08:53 Dose: Not Given Documented By: PJ Non-Admin Reason: IV Running Vitamin D (Cholecalciferol (Vitamin D3) 25 Mcg Tablet) 125 mcg PO DAILY [facility] Last Admin: 09/22/24 08:51 Dose: 125 mcg Documented By: PJ Labs 09/20/24 09:51 09/20/24 09:51 Assessment and Plan (1) Acute electrocardiogram changes: Status: Acute (2) Syncope: Status: Acute Plan 79F PMH copd, duodenal AVMs, rheumatoid arthritis, htn, pseudogout, iron deficiency anemia, presented syncope syncope syncope 2 episode ,3rd episode near syncope yesterday ortostatics normal h/h stable bmp seems also fine echo:. Normal LV ejection fraction 60 65% with impaired relaxationfilling pattern . Calcific aortic and mitral valve changes noted with normal cardiac valvular Dopplers .No gross pericardial effusion plan: moniter on tele cardiology eval noted -possible sss s/p pacemaker ,doing well further cardiac workup outpatient. cxr -No acute findings. syncope /fall: advised again rest ct head and neck reviewed: T3 spine fracture-possible acute: Patient does not have any pain or any neurological symptoms. Discussed above with [facility] neurosurgical team miss Kahn /currently patient is asymptomatic no further intervention and recommended PT evaluation. knee pain right side -she says its chronic knee xray:No acute osseous findings. Moderate degenerative changes lateral tibiofemoral compartment. Moderate joint effusion. plan: pain meds ,Pt eval. recent acute on chronic iron-deficiency anemia due to acute blood loss: h/h atble in 9.2 range continue ppi Rheumatoid arthritis Continue plaquenil COPD Stable DVT prophylaxis-mechanical due to anemia Pt rec rehab. Inpatient need : awaiting rehab placement Quality Stroke Does the patient have a stroke diagnosis?: No VTE Prior VTE?: No VTE Risk Level:: Medical - moderate - high VTE Device Contraindication: N/A - Device Ordered VTE Drug Contraindication: N/A - Med Ordered
[2024-09-22 20:00] VITALS: BP 149/71; PULSE 99; RESP 18; TEMP 36.6; O2SAT 97
[2024-09-23] VITALS (7 sets, daily range): BP systolic 131–180; BP diastolic 65–85; PULSE 83–104; RESP 14–20; TEMP 36.2–37.3; O2SAT 95–99
[2024-09-23] MEDS: Labetalol HCL 100 MG/20 ML VIAL 20 MG IVPUSH (05:29)
[2024-09-23] MEDS: Omeprazole 20 MG CAPSULE.DR PO (05:30)
[2024-09-23] MEDS: Acetaminophen 325 MG TABLET 975 MG PO ×3 (05:30→18:54)
[2024-09-23] MEDS: rOPINIRole HCL 2 MG TABLET PO ×3 (08:43→22:14)
[2024-09-23] MEDS: Nicotine 21 MG PATCH.TD24 TRANSDERMA (08:43)
[2024-09-23] MEDS: Hydroxychloroquine Sulfate 200 MG TABLET PO (08:43)
[2024-09-23] MEDS: Cholecalciferol (Vitamin D3) 25 MCG TABLET 125 MCG PO (08:43)
[2024-09-23] MEDS: Cyanocobalamin (Vitamin B-12) 1,000 MCG TABLET 1000 MCG PO (08:43)
[2024-09-23] MEDS: Ferrous Sulfate 324 MG TABLET.DR PO ×2 (08:43→22:14)
[2024-09-23] MEDS: Folic Acid 1 MG TABLET PO (08:43)
[2024-09-23] MEDS: Pravastatin Sodium 40 MG TABLET PO (08:43)
[2024-09-23] MEDS: Lidocaine 4 % Patch ADH..PATCH 1 PATCH TRANSDERMA (08:44)
[2024-09-23] MEDS: 0.9 % Sodium Chloride Flush 3 ML SYRINGE IVFLUSH ×3 (08:45→22:14)
--- NOTE | 2024-09-23 16:33 | HO.PM.IMPN ---
Subjective Subjective Date of Service: 09/24/24 Interval History: sss Review of Systems denies any chest pain or sob Review of Systems: Yes all other systems are reviewed and are negative Physical Exam Vital Signs: Vital Signs: Last Vital Signs Temp 99.2 F 09/23/24 15:46 Pulse 95 09/23/24 15:46 Resp 18 09/23/24 15:46 BP 140/73 H 09/23/24 15:46 Pulse Ox 98 09/23/24 15:46 O2 Del Method Room Air 09/23/24 15:46 BMI result Body Mass Index 18.6 Appearance: Alert.? Oriented X3.? cvs: rrr, [id number]. left pectoral chest -pacemaker area seems clean ,no erythema res: clear to auscultation ,no rales or wheezing abd: no rebound or guarding ,nt, bs present. ext pulses present , no cyanosis. neuro: axo3 , nonfocal. skin-no buises. Objective Data Active Medications Acetaminophen (Acetaminophen 325 Mg Tablet) 975 mg PO Q6H [facility] Last Admin: 09/23/24 13:26 Dose: 975 mg Documented By: ERIKA Albuterol Sulfate (Albuterol Sulfate 90 Mcg 8 Gm Inhaler) 2 puff INHALE Q4H PRN PRN Reason: shortness of breath or wheezing Atropine Sulfate (Atropine Sulfate 1 Mg/10 Ml Syringe) 1 mg IVPUSH ONCE PRN PRN Reason: bradycardia Calcium Carbonate (Calcium Carbonate 750 Mg Tab.Chew) 750 mg PO Q4H PRN PRN Reason: Heartburn Cyanocobalamin (Cyanocobalamin (Vitamin B-12) 1,000 Mcg Tablet) 1,000 mcg PO DAILY [facility] Last Admin: 09/23/24 08:43 Dose: 1,000 mcg Documented By: ELVIN Ferrous Sulfate (Ferrous Sulfate 324 Mg Tablet.) 324 mg PO BID [facility] Last Admin: 09/23/24 08:43 Dose: 324 mg Documented By: ELVIN Folic Acid (Folic Acid 1 Mg Tablet) 1 mg PO DAILY [facility] Last Admin: 09/23/24 08:43 Dose: 1 mg Documented By: ELVIN Hydroxychloroquine Sulfate (Hydroxychloroquine Sulfate 200 Mg Tablet) 200 mg PO DAILY [facility] Last Admin: 09/23/24 08:43 Dose: 200 mg Documented By: ELVIN Lidocaine (Lidocaine 4 % Patch Adh..Patch) 1 patch TRANSDERMA DAILY [facility]; Protocol Last Admin: 09/23/24 08:44 Dose: 1 patch Documented By: ELVIN Magnesium Hydroxide (Milk Of Magnesia 30 Ml Oral.Susp) 30 ml PO DAILY PRN PRN Reason: Constipation Melatonin (Melatonin 3 Mg Tablet) 6 mg PO BEDTIME PRN PRN Reason: Insomnia Naloxone HCl (Naloxone Hcl 0.4 Mg/Ml Vial) 0.04 mg IVPUSH Q5M PRN PRN Reason: Excessive sedation or RR < 8 Nicotine (Nicotine 21 Mg Patch.Td24) 21 mg TRANSDERMA DAILY [facility] Last Admin: 09/23/24 08:43 Dose: 21 mg Documented By: ELVIN Omeprazole (Omeprazole 20 Mg Capsule.) 20 mg PO DAILY@0630 [facility] Last Admin: 09/23/24 05:30 Dose: 20 mg Documented By: AUGUST Pravastatin Sodium (Pravastatin Sodium 40 Mg Tablet) 40 mg PO DAILY [facility] Last Admin: 09/23/24 08:43 Dose: 40 mg Documented By: ELVIN Ropinirole HCl (Ropinirole Hcl 2 Mg Tablet) 2 mg PO TID [facility] Last Admin: 09/23/24 08:43 Dose: 2 mg Documented By: ELVIN Sodium Chloride (0.9 % Sodium Chloride Flush 3 Ml Syringe) 3 ml IVFLUSH QSHIFT [facility] Last Admin: 09/23/24 08:45 Dose: 3 ml Documented By: ELVIN Vitamin D (Cholecalciferol (Vitamin D3) 25 Mcg Tablet) 125 mcg PO DAILY [facility] Last Admin: 09/23/24 08:43 Dose: 125 mcg Documented By: ELVIN Labs 09/20/24 09:51 09/20/24 09:51 Assessment and Plan (1) Acute electrocardiogram changes: Status: Acute (2) Syncope: Status: Acute Plan 79F PMH copd, duodenal AVMs, rheumatoid arthritis, htn, pseudogout, iron deficiency anemia, presented syncope syncope syncope 2 episode ,3rd episode near syncope yesterday ortostatics normal h/h stable bmp seems also fine echo:. Normal LV ejection fraction 60 65% with impaired relaxationfilling pattern . Calcific aortic and mitral valve changes noted with normal cardiac valvular Dopplers .No gross pericardial effusion plan: moniter on tele cardiology eval noted -possible sss s/p pacemaker ,doing well further cardiac workup outpatient. cxr -No acute findings. syncope /fall: advised again rest ct head and neck reviewed: T3 spine fracture-possible acute: Patient does not have any pain or any neurological symptoms. Discussed above with [facility] neurosurgical team miss Kahn /currently patient is asymptomatic no further intervention and recommended PT evaluation. knee pain right side -she says its chronic knee xray:No acute osseous findings. Moderate degenerative changes lateral tibiofemoral compartment. Moderate joint effusion. plan: pain meds ,Pt eval. recent acute on chronic iron-deficiency anemia due to acute blood loss: h/h atble in 9.2 range continue ppi Rheumatoid arthritis Continue plaquenil COPD Stable DVT prophylaxis-mechanical due to anemia Pt rec rehab. Inpatient need : awaiting rehab placement Quality Stroke Does the patient have a stroke diagnosis?: No VTE Prior VTE?: No VTE Risk Level:: Medical - moderate - high VTE Device Contraindication: N/A - Device Ordered VTE Drug Contraindication: N/A - Med Ordered
[2024-09-24] VITALS (9 sets, daily range): BP systolic 123–182; BP diastolic 63–80; PULSE 75–97; RESP 16–18; TEMP 36.3–36.8; O2SAT 95–98
[2024-09-24] MEDS: Acetaminophen 325 MG TABLET 975 MG PO ×3 (04:49→19:29)
[2024-09-24] MEDS: Omeprazole 20 MG CAPSULE.DR PO (04:49)
[2024-09-24] MEDS: Labetalol HCL 100 MG/20 ML VIAL 20 MG IVPUSH (05:32)
--- NOTE | 2024-09-24 07:52 | P.PNIM_ITS ---
Subjective Subjective Date of Service: 09/24/24 Interval History: generalised weak Review of Systems seems similar generlaised weak denies any chest pain or sob Review of Systems: Yes all other systems are reviewed and are negative Physical Exam 2 Vital Signs: Vital Signs: Last Vital Signs Temp 98.0 F 09/24/24 07:00 Pulse 77 09/24/24 07:00 Resp 18 09/24/24 07:00 BP 156/79 H 09/24/24 07:00 Pulse Ox 96 09/24/24 07:00 O2 Del Method Room Air 09/24/24 07:00 BMI result Body Mass Index 18.6 Appearance: Alert.? Oriented X3.? cvs: rrr, [id number]. left pectoral chest -pacemaker area seems clean ,no erythema res: clear to auscultation ,no rales or wheezing abd: no rebound or guarding ,nt, bs present. ext pulses present , no cyanosis. neuro: axo3 , nonfocal. skin-no buises. Objective Data Active Medications Acetaminophen (Acetaminophen 325 Mg Tablet) 975 mg PO Q6H [facility] Last Admin: 09/24/24 04:49 Dose: 975 mg Documented By: ARNIE Albuterol Sulfate (Albuterol Sulfate 90 Mcg 8 Gm Inhaler) 2 puff INHALE Q4H PRN PRN Reason: shortness of breath or wheezing Atropine Sulfate (Atropine Sulfate 1 Mg/10 Ml Syringe) 1 mg IVPUSH ONCE PRN PRN Reason: bradycardia Calcium Carbonate (Calcium Carbonate 750 Mg Tab.Chew) 750 mg PO Q4H PRN PRN Reason: Heartburn Cyanocobalamin (Cyanocobalamin (Vitamin B-12) 1,000 Mcg Tablet) 1,000 mcg PO DAILY [facility] Last Admin: 09/23/24 08:43 Dose: 1,000 mcg Documented By: ELVIN Ferrous Sulfate (Ferrous Sulfate 324 Mg Tablet.) 324 mg PO BID [facility] Last Admin: 09/23/24 22:14 Dose: 324 mg Documented By: ARNIE Folic Acid (Folic Acid 1 Mg Tablet) 1 mg PO DAILY [facility] Last Admin: 09/23/24 08:43 Dose: 1 mg Documented By: ELVIN Hydroxychloroquine Sulfate (Hydroxychloroquine Sulfate 200 Mg Tablet) 200 mg PO DAILY [facility] Last Admin: 09/23/24 08:43 Dose: 200 mg Documented By: ELVIN Lidocaine (Lidocaine 4 % Patch Adh..Patch) 1 patch TRANSDERMA DAILY [facility]; Protocol Last Admin: 09/23/24 08:44 Dose: 1 patch Documented By: ELVIN Magnesium Hydroxide (Milk Of Magnesia 30 Ml Oral.Susp) 30 ml PO DAILY PRN PRN Reason: Constipation Melatonin (Melatonin 3 Mg Tablet) 6 mg PO BEDTIME PRN PRN Reason: Insomnia Naloxone HCl (Naloxone Hcl 0.4 Mg/Ml Vial) 0.04 mg IVPUSH Q5M PRN PRN Reason: Excessive sedation or RR < 8 Nicotine (Nicotine 21 Mg Patch.Td24) 21 mg TRANSDERMA DAILY [facility] Last Admin: 09/23/24 08:43 Dose: 21 mg Documented By: ELVIN Omeprazole (Omeprazole 20 Mg Capsule.Dr) 20 mg PO DAILY@0630 [facility] Last Admin: 09/24/24 04:49 Dose: 20 mg Documented By: ARNIE Pravastatin Sodium (Pravastatin Sodium 40 Mg Tablet) 40 mg PO DAILY [facility] Last Admin: 09/23/24 08:43 Dose: 40 mg Documented By: ELVIN Ropinirole HCl (Ropinirole Hcl 2 Mg Tablet) 2 mg PO TID [facility] Last Admin: 09/23/24 22:14 Dose: 2 mg Documented By: ARNIE Sodium Chloride (0.9 % Sodium Chloride Flush 3 Ml Syringe) 3 ml IVFLUSH QSHIFT [facility] Last Admin: 09/23/24 22:14 Dose: 3 ml Documented By: ARNIE Vitamin D (Cholecalciferol (Vitamin D3) 25 Mcg Tablet) 125 mcg PO DAILY [facility] Last Admin: 09/23/24 08:43 Dose: 125 mcg Documented By: ELVIN Labs 09/20/24 09:51 09/20/24 09:51 Assessment and Plan (1) Acute electrocardiogram changes: Status: Acute (2) Syncope: Status: Acute Plan 79F PMH copd, duodenal AVMs, rheumatoid arthritis, htn, pseudogout, iron deficiency anemia, presented syncope syncope syncope 2 episode ,3rd episode near syncope yesterday ortostatics normal h/h stable bmp seems also fine echo:. Normal LV ejection fraction 60 65% with impaired relaxationfilling pattern . Calcific aortic and mitral valve changes noted with normal cardiac valvular Dopplers .No gross pericardial effusion plan: moniter on tele cardiology eval noted -possible sss s/p pacemaker ,doing well further cardiac workup outpatient. cxr -No acute findings. syncope /fall: advised again rest ct head and neck reviewed: T3 spine fracture-possible acute: Patient does not have any pain or any neurological symptoms. Discussed above with [facility] neurosurgical team miss Kahn /currently patient is asymptomatic no further intervention and recommended PT evaluation. knee pain right side -she says its chronic knee xray:No acute osseous findings. Moderate degenerative changes lateral tibiofemoral compartment. Moderate joint effusion. plan: pain meds ,Pt eval. recent acute on chronic iron-deficiency anemia due to acute blood loss: h/h atble in 9.2 range continue ppi Rheumatoid arthritis Continue plaquenil COPD Stable DVT prophylaxis-mechanical due to anemia Pt rec rehab. Inpatient need : awaiting rehab placement Quality Stroke Does the patient have a stroke diagnosis?: No VTE Prior VTE?: No VTE Risk Level:: Medical - moderate - high VTE Device Contraindication: N/A - Device Ordered VTE Drug Contraindication: N/A - Med Ordered
[2024-09-24] MEDS: Folic Acid 1 MG TABLET PO (07:59)
[2024-09-24] MEDS: Cyanocobalamin (Vitamin B-12) 1,000 MCG TABLET 1000 MCG PO (07:59)
[2024-09-24] MEDS: Pravastatin Sodium 40 MG TABLET PO (07:59)
[2024-09-24] MEDS: Ferrous Sulfate 324 MG TABLET.DR PO ×2 (07:59→20:08)
[2024-09-24] MEDS: rOPINIRole HCL 2 MG TABLET PO ×3 (07:59→20:08)
[2024-09-24] MEDS: Cholecalciferol (Vitamin D3) 25 MCG TABLET 125 MCG PO (07:59)
[2024-09-24] MEDS: Hydroxychloroquine Sulfate 200 MG TABLET PO (07:59)
[2024-09-24] MEDS: Lidocaine 4 % Patch ADH..PATCH 1 PATCH TRANSDERMA (07:59)
[2024-09-24] MEDS: Nicotine 21 MG PATCH.TD24 TRANSDERMA (08:00)
[2024-09-24] MEDS: 0.9 % Sodium Chloride Flush 3 ML SYRINGE IVFLUSH ×3 (08:03→20:09)
[2024-09-24] MEDS: Melatonin 3 MG TABLET 6 MG PO (20:09)
[2024-09-25] MEDS: Acetaminophen 325 MG TABLET 975 MG PO ×3 (00:49→14:02)
[2024-09-25 04:00] VITALS: BP 160/86; PULSE 86; RESP 14; TEMP 36.4; O2SAT 97
[2024-09-25] MEDS: Omeprazole 20 MG CAPSULE.DR PO (06:29)
[2024-09-25 07:20] VITALS: BP 154/79; PULSE 83; RESP 20; TEMP 36.3; O2SAT 96
--- NOTE | 2024-09-25 08:22 | P.DS_ITS ---
DS: Providers Provider Date of Service: 09/25/24 Date of admission: 09/21/24 10:11 Date of discharge: 09/25/24 Primary care physician: Burke Vazquez PA-C Consults: 09/19/24 15:23 Consult to Cardiology Routine Consulting Provider: [facility] Reason for consultation: syncope Has provider been notified: No 09/20/24 07:28 Consult for Sitter Routine Reason for consultation: fall 09/25/24 08:14 Consult to Orthopedics Routine Consulting Provider: [facility] Reason for consultation: knee pain/swelling-OA/knee effusion/fall Has provider been notified: No Attending physician on discharge: Radha Murphy Discharging clinician: Radha Murphy DS: Diagnosis Discharge Diagnosis (1) Acute electrocardiogram changes: Status: Acute (2) Syncope: Status: Acute DS: Summary Hospital Course Hospital Course: HPI:79y/o F with pmhx COPD, active smoker, chronic cough, rheumatoid arthritis, 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 As per the patient she had syncopal event and loss of consciousness and was lowered to the ground - did not fell or hit her head.she was npo for going to her doctor appointment ,POC WNL per report(as per ed documentation). Her previous syncopal episode was when she was anemic with a hemoglobin of 3.8. Currently her H and H is around 9.2. 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 Superimposed mild interstitial lung edema versus small acute airway inflammatory process cannot be excluded. hospital course: 79F PMH copd, duodenal AVMs, rheumatoid arthritis, htn, pseudogout, iron deficiency anemia, presented syncope syncopes: Had fall 2 times.ortostatics normal,EKG shows T-wave inversion in the anterior lead. troponins negative,tsh normal Above was thought to be likely due to Syncope with sick sinus syndrome. Patient status post dual-chamber pacemaker. echo:. Normal LV ejection fraction 60 65% with impaired relaxationfilling pattern . Calcific aortic and mitral valve changes noted with normal cardiac valvular Dopplers .No gross pericardial effusion Syncope with sick sinus syndrome. Patient status post dual-chamber pacemaker. Cardiology may arrange outpatient appointment. Patient is asymptomatic currently, feeling much better. syncope /fall:ct head and neck reviewed: T3 spine fracture-possible acute: Patient does not have any pain or any neurological symptoms. Discussed above with [facility] neurosurgical team miss Kahn /currently patient is asymptomatic no further intervention and recommended PT evaluation. Consider outpatient follow-up with Dr. Moyer office - Neurosurgery outpatient in [facility].. knee pain right side -she says its chronic knee xray:No acute osseous findings. Moderate degenerative changes lateral tibiofemoral compartment. Moderate joint effusion. Seen by ortho: Recommended outpatient follow-up. Continue lidocaine patch and Tylenol for pain control. Rheumatoid arthritis Continue plaquenil. plan: possible SSS- s/p pacemaker . fall t3 fracture -asymptomatic -Discussed above with [facility] neurosurgical team miss Kahn /currently patient is asymptomatic no further intervention and recommended PT evaluation, consider outpatient follow up [facility] neurosurgery Dr moyer office [facility] ([address] [place] [address] ,[address] [place] [address]. ). right knee pain : possible chronic:X-rays review and negative for fx or dislocation ,moderate effusion .No acutre orthopedic intervention needed - f/u out patient. Above management discussed with the patient in detail length she understand and in agreement with the above plan, time spent 40 minute, all question answered. Staff was present during conversation. Time Attestation Total time managing care of this patient today: 40 mintues. Discharge Coordination Time (in mins): 40 min Quality: Safe Use of Opioids Does Pt have an Active Cancer Diagnosis on the Problem List?: No Quality: Stroke Does the patient have a stroke diagnosis?: No Physical Exam Vital Signs: Vital Signs: Last Vital Signs Temp 97.4 F 09/25/24 07:20 Pulse 83 09/25/24 07:20 Resp 20 09/25/24 07:20 BP 154/79 H 09/25/24 07:20 Pulse Ox 96 09/25/24 07:20 O2 Del Method Room Air 09/25/24 07:20 BMI result Body Mass Index 18.6 Appearance: Alert.? Oriented X3.?. cvs: rrr, [id number] . res: clear to auscultation ,no rhonchii or wheezing abd: no rebound or guarding ,nt, bs present. ext pulses present , no cyanosi. neuro: axo3 , nonfocal. DS: Data Data Completed and Pending Completed studies during hospitalization [Text1]: Procedures Destruction of Duodenum, Via Natural or Artificial Opening Endoscopic (08/31/24) Excision of Duodenum, Via Natural or Artificial Opening Endoscopic, Diagnostic (08/31/24) Excision of Stomach, Pylorus, Via Natural or Artificial Opening Endoscopic, Diagnostic (08/31/24) Transfusion of Nonautologous Red Blood Cells into Peripheral Vein, Percutaneous Approach (08/31/24) Discharge Plan Discharge Anticipated Discharge Date/Time: 09/25/24 07:53 Patient Disposition: Xfer SNF Discharge Diagnosis: SSS, syncope, fall , T3 spine fracture. Referrals: [facility] [Outside] - 1 Day (SHORT TERM REHAB) Burke Vazquez PA-C [Primary Care Provider] - 1 Week Discharge Medications: New lidocaine [Lidocaine Pain Relief] 4 % Adhesive Patch,Medicated 1 patch transdermal DAILY Qty: 1 0RF Protocol: Apply to: Apply to: affected area nicotine 21 mg/24 hr Patch 24 Hour 21 mg transdermal DAILY Qty: 1 0RF Continued cholecalciferol (vitamin D3) 125 mcg (5,000 unit) capsule 125 mcg PO DAILY Qty: 90 1RF omeprazole 20 mg capsule,delayed release(DR/EC) 20 mg PO DAILY@0630 acetaminophen 325 mg tablet 650 mg PO Q6H PRN (Reason: pain) Qty: 60 1RF hydroxychloroquine 200 mg tablet 200 mg PO DAILY Qty: 90 1RF pravastatin 40 mg tablet 40 mg PO DAILY 90 Days Qty: 90 1RF ropinirole 1 mg tablet 2 mg PO TID Qty: 90 1RF albuterol sulfate 90 mcg/actuation HFA aerosol inhaler 2 puff inhalation Q4-6H PRN (Reason: shortness of breath or wheezing) 30 Days Qty: 8.5 4RF folic acid 1 mg tablet 1 mg PO DAILY Qty: 90 3RF cyanocobalamin (vitamin B-12) 1,000 mcg lozenge 1,000 mcg SUBLINGUAL DAILY Qty: 90 4RF ferrous sulfate [Feosol] 325 mg (65 mg iron) tablet 325 mg PO BID 30 Days Qty: 60 2RF (DME) blood pressure monitor Kit See Rx Instructions .Route Qty: 1 0RF Rx Instructions: check bp twice a week and when not feeling well Discharge Orders: Discharge Order (Routine); Ordered 09/25/24 Ordered By: Radha Murphy Diet: Advance to usual diet Activity on Discharge: As tolerated Stand Alone Forms: Patient Portal Discharge page Print Language: Greek Activity Restrictions/Additional Instructions: pacemaker instructions: 1. Keep the chest incision site dry for 7 days. 2. No lifting more than 10 lbs with the left arm. 3. No raising the left arm above shoulder level or reaching behind the back.? 4. Wear the left arm sling continuously for 24 hours, then wear only when sleeping for 2 weeks. 5. No driving for 2 weeks. 6. Continue other home meds as before. 7. Follow up in EP clinic in 7-10 days for incision site check. Follow up with [facility] as scheduled.? Care Plan Goals: possible SSS- s/p pacemaker . fall t3 fracture -asymptomatic -Discussed above with [facility] neurosurgical team miss Kahn /currently patient is asymptomatic no further intervention and recommended PT evaluation, consider outpatient follow up [facility] neurosurgery Dr moyer office [facility] ([address] [place] [address] drive ,[address] [place] [address]. ). right knee pain : possible chronic:X-rays review and negative for fx or di slocation ,moderate effusion . No acutre orthopedic intervention needed - f/u out patient. Health Concerns: follow with cardiology -they may arrnage their own appointment. Consider neurosurgery follow-up outpatient& orthopedics outpatient. also follow up Dr Harvinder Benavides cardiology . cardiolog Dr Muinz's office-may arrage their own appointment for outpatient cardiac workup. Plan of Treatment: As above. Assessment: As above. Patient Instructions: Syncope (DC), Bradycardia (DC)
[2024-09-25] MEDS: rOPINIRole HCL 2 MG TABLET PO (08:25)
[2024-09-25] MEDS: Ferrous Sulfate 324 MG TABLET.DR PO (08:25)
[2024-09-25] MEDS: Pravastatin Sodium 40 MG TABLET PO (08:25)
[2024-09-25] MEDS: Cyanocobalamin (Vitamin B-12) 1,000 MCG TABLET 1000 MCG PO (08:25)
[2024-09-25] MEDS: Hydroxychloroquine Sulfate 200 MG TABLET PO (08:25)
[2024-09-25] MEDS: Folic Acid 1 MG TABLET PO (08:25)
[2024-09-25] MEDS: Cholecalciferol (Vitamin D3) 25 MCG TABLET 125 MCG PO (08:25)
[2024-09-25] MEDS: Lidocaine 4 % Patch ADH..PATCH 1 PATCH TRANSDERMA (08:26)
[2024-09-25] MEDS: 0.9 % Sodium Chloride Flush 3 ML SYRINGE IVFLUSH (08:26)
--- NOTE | 2024-09-25 08:28 | P.CONOP_ITS ---
History of Present Illness HPI Consult date: 09/25/24 Chief complaint: Syncope Narrative: 79-year-old female admitted to the hospital after syncopal episode and fall Patient has been experiencing right knee pain since that time X-rays taken in the ED revealed moderate to severe degenerative changes of the right knee with joint effusion, but no fracture or acute bony abnormality Today, the patient reports that she is still experiencing significant pain in the right knee, but has improved since her fall Patient reports no difficulty with ambulation or range of motion, but does report her right knee is still significantly swollen No other acute complaints or concerns at this time Review of Systems 2 Review of Systems: Yes all other systems are reviewed and are negative PMFSH Past Medical History Medical History 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 Surgical History Surgical History S/P appendectomy H/O parathyroidectomy Status post hip surgery Social History Social History Household Members: None Housing: Apartment Are you a primary care coordination manager to a significant other at home: No Do you presently have visiting nurse or other home services: No Alcohol intake: never Comment: Patient at times refusing bed alarm Patient Tobacco Use Status: Current everyday Tobacco user Tobacco use type: Cigarette Cigarette Packs Per Day: 0.5 Cigarettes Per Day: 10.0 Years Smoked: 55 Smoked in Last 30 Days: Yes e-Cigarette/Vaping Use: Currently Using Patient Interested in Nicotine Replacement: Yes Patient Given Instructions on How to Stop Smoking: No (Declined) Second Hand Smoke Exposure: No Use of substances other than those prescribed or required for medical reasons: No Currently Displaying Signs/Symptoms of Drug Intoxication Withdrawal: No Any prior treatment program specific to substance use: No Have you been hit, kicked, punched, or otherwise hurt by someone within the past year? If so, by whom?: No Do you feel safe in your current relationship?: No Current Relationship Is there a partner from a previous relationship who is making you feel unsafe now?: No Are you made to feel afraid or neglected: No Spiritual Healthcare Practices: None Are you DNR?: No Advance Directives: Yes Advance Directives Information Provided: No Advance Directives on File: Yes Advance Directives Date on File: 09/10/23 Do you have a plan to hurt others: No Plan Recently lost weight without trying: No Eating poorly because of decreased appetite: No Nutrition Risks: No Nutritional Risk Patient : No : No Poor oral hygiene: Yes service: No Current occupational status: retired 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 Current occupational exposures/hazards: No Cognitive needs: No Hearing needs: No Vision needs: Yes Meds Allergies Allergy/AdvReac Type Severity Reaction Status Date / Time oxycodone [From OxyContin] Allergy Mild Hives Verified 09/19/24 12:49 [place]perole Allergy Mild Hives & Uncoded 09/19/24 11:13 Swollen legs Active Medications: Current Medications Acetaminophen (Acetaminophen 325 Mg Tablet) 975 mg PO Q6H [facility] Last Admin: 09/25/24 08:25 Dose: 975 mg Albuterol Sulfate (Albuterol Sulfate 90 Mcg 8 Gm Inhaler) 2 puff INHALE Q4H PRN PRN Reason: shortness of breath or wheezing Atropine Sulfate (Atropine Sulfate 1 Mg/10 Ml Syringe) 1 mg IVPUSH ONCE PRN PRN Reason: bradycardia Calcium Carbonate (Calcium Carbonate 750 Mg Tab.Chew) 750 mg PO Q4H PRN PRN Reason: Heartburn Cyanocobalamin (Cyanocobalamin (Vitamin B-12) 1,000 Mcg Tablet) 1,000 mcg PO DAILY [facility] Last Admin: 09/25/24 08:25 Dose: 1,000 mcg Ferrous Sulfate (Ferrous Sulfate 324 Mg Tablet.Dr) 324 mg PO BID [facility] Last Admin: 09/25/24 08:25 Dose: 324 mg Folic Acid (Folic Acid 1 Mg Tablet) 1 mg PO DAILY [facility] Last Admin: 09/25/24 08:25 Dose: 1 mg Hydroxychloroquine Sulfate (Hydroxychloroquine Sulfate 200 Mg Tablet) 200 mg PO DAILY [facility] Last Admin: 09/25/24 08:25 Dose: 200 mg Lidocaine (Lidocaine 4 % Patch Adh..Patch) 1 patch TRANSDERMA DAILY [facility]; Protocol Last Admin: 09/25/24 08:26 Dose: 1 patch Magnesium Hydroxide (Milk Of Magnesia 30 Ml Oral.Susp) 30 ml PO DAILY PRN PRN Reason: Constipation Melatonin (Melatonin 3 Mg Tablet) 6 mg PO BEDTIME PRN PRN Reason: Insomnia Last Admin: 09/24/24 20:09 Dose: 6 mg Naloxone HCl (Naloxone Hcl 0.4 Mg/Ml Vial) 0.04 mg IVPUSH Q5M PRN PRN Reason: Excessive sedation or RR < 8 Nicotine (Nicotine 21 Mg Patch.Td24) 21 mg TRANSDERMA DAILY [facility] Last Admin: 09/24/24 08:00 Dose: 21 mg Omeprazole (Omeprazole 20 Mg Capsule.Dr) 20 mg PO DAILY@0630 [facility] Last Admin: 09/25/24 06:29 Dose: 20 mg Pravastatin Sodium (Pravastatin Sodium 40 Mg Tablet) 40 mg PO DAILY [facility] Last Admin: 09/25/24 08:25 Dose: 40 mg Ropinirole HCl (Ropinirole Hcl 2 Mg Tablet) 2 mg PO TID [facility] Last Admin: 09/25/24 08:25 Dose: 2 mg Sodium Chloride (0.9 % Sodium Chloride Flush 3 Ml Syringe) 3 ml IVFLUSH QSHIFT [facility] Last Admin: 09/25/24 08:26 Dose: 3 ml Vitamin D (Cholecalciferol (Vitamin D3) 25 Mcg Tablet) 125 mcg PO DAILY [facility] Last Admin: 09/25/24 08:25 Dose: 125 mcg Home Medications ?Medication ?Instructions ?Recorded ?Confirmed ?Last Taken ?Type omeprazole 20 mg capsule,delayed 20 mg PO DAILY@0630 09/19/24 09/19/24 09/19/24 History release Physical Exam 2 Vital Signs: Vital Signs: Last Vital Signs Temp 97.4 F 09/25/24 07:20 Pulse 83 09/25/24 07:20 Resp 20 09/25/24 07:20 BP 154/79 H 09/25/24 07:20 Pulse Ox 96 09/25/24 07:20 O2 Del Method Room Air 09/25/24 07:20 BMI result Body Mass Index 18.6 Extrem: Other: Patient's right knee edematous to inspection No erythema, ecchymosis noted No lacerations, abrasions, open areas No evidence of infection Patient reports no tenderness to palpation of the medial or lateral joint line, posterior knee, quadriceps tendon, patellar tendon, posterior knee No palpable defects to either the quad tendon or patellar tendon Patient is able to flex the right knee to approximately 90 degrees and extend to 10 degrees actively Patient is able to actively perform a straight leg raise off of the bed holding approximately 10 degrees of extension Distal sensation intact Capillary refill brisk Results Labs 09/20/24 09:51 09/20/24 09:51 Labs: H & H 09/19/24 09/20/24 Range/Units 13:08 09:51 Hgb 9.2 L 9.1 L (12.0-16.0) g/dl Hct 30.8 L 30.5 L (37.0-47.0) % Coagulation 09/19/24 Range/Units 13:08 INR 1.0 (0.9-1.1) All other labs normal. Diagnostic results Knee x-ray: report reviewed and image reviewed Assessment and Plan (1) Right knee pain: Status: Acute (2) Osteoarthritis of right knee: Status: Acute Plan 1. Right knee OA No evidence of fracture on x-rays No evidence of quad tendon or patellar tendon injury on physical exam Continue weight-bearing as tolerated Encouraged to work with physical therapy No further acute orthopedic intervention indicated at this time Patient may follow-up in outpatient clinic Procedures Date of Service Date of Service: 09/25/24
--- NOTE | 2024-09-25 08:31 | PM.EVENT ---
Event Note Date of Service: 09/25/24 Event Note: Right knee chronic pain Hx rheumatoid o/a hx of fall X-rays review and negative for fx or dislocation moderate effusion No acutre orthopedic intervention needed - f/u out patient Time Spent With Patient Time: Total time managing care of this patient today ____ minutes.
--- NOTE | 2024-09-25 09:05 | MHC.CM.PN ---
IMM 09/25/24 DELIVERED TO BEDSIDE, PT MEDICALLY CLEARED FOR DC TO STR AT [facility] FOR TRANSPORT AT 2PM
[2024-09-25] MEDS: Nicotine 21 MG PATCH.TD24 TRANSDERMA (09:28)
== END 2024-09-25 15:09 | disposition skilled nursing facility (03) | DRG 243 ==
LOC: HO.ED 15:16 → HO.EDOVER 15:23 → HO.IMC 21:38
PROVIDERS: Physician Assistant; Student in an Organized Health Care Education/Training Program; Admitting Provider Internal Medicine; Emergency Provider Emergency Medicine; PCP Physician Assistant; Visit Provider Internal Medicine
PROC: 0JH606Z Insertion of Pacemaker, Dual Chamber into Chest Subcutaneous Tissue and Fascia, Open Approach (ICD-10-PCS; principal; 2024-09-21 15:40)
DX: I49.5 Sick sinus syndrome (principal); D62 Acute posthemorrhagic anemia; S22.039A Unspecified fracture of third thoracic vertebra, initial encounter for closed fracture; W19.XXXA Unspecified fall, initial encounter; D50.9 Iron deficiency anemia, unspecified; Z66 Do not resuscitate; M06.9 Rheumatoid arthritis, unspecified; J44.9 Chronic obstructive pulmonary disease, unspecified; F17.210 Nicotine dependence, cigarettes, uncomplicated; Z71.6 Tobacco abuse counseling; Z79.899 Other long term (current) drug therapy
CPT/HCPCS: 36415; 70450; 71045; 71046; 72125; 73560; 76000; 80048; 80076; 82947; 83690; 83735; 84443; 84484; 85025; 85027; 85610; 85730; 86850; 86870; 86900; 86901; 86920; 86922; 93005; 93306; 97162; 99285; C1785; C1892; C1898; J0690; J1920; J2003; J2704; J3010; J3370; J7120; Q9967

== ENCOUNTER → 2024-09-19 12:40 | Outpatient (BNV) | payer MEDICARE, SELFPAY | PROVIDERS: Admitting Provider Internal Medicine; Emergency Provider Emergency Medicine; PCP Physician Assistant; Visit Provider Internal Medicine Cardiovascular Disease | DX: R94.31 Abnormal electrocardiogram [ECG] [EKG] (principal); I49.3 Ventricular premature depolarization | CPT/HCPCS: 93010 ==

== ENCOUNTER → 2024-09-19 15:10 | Outpatient (BNV) | payer MEDICARE, SELFPAY | PROVIDERS: Admitting Provider Internal Medicine; Emergency Provider Emergency Medicine; PCP Physician Assistant; Visit Provider Radiology Diagnostic Radiology | DX: I70.0 Atherosclerosis of aorta (principal) | CPT/HCPCS: 71045 ==

== ENCOUNTER 2024-09-19 15:23 | Outpatient (BNV) | payer MEDICARE, SELFPAY | END 2024-09-20 07:00 | PROVIDERS: Admitting Provider Internal Medicine; Emergency Provider Emergency Medicine; PCP Physician Assistant; Visit Provider Internal Medicine Cardiovascular Disease | DX: I35.8 Other nonrheumatic aortic valve disorders (principal); I34.81 Nonrheumatic mitral (valve) annulus calcification | CPT/HCPCS: 93306 ==

== ENCOUNTER 2024-09-19 15:23 | Outpatient (BNV) | payer MEDICARE, SELFPAY | END 2024-09-20 17:30 | PROVIDERS: Admitting Provider Internal Medicine; Emergency Provider Emergency Medicine; PCP Physician Assistant; Visit Provider Specialist | DX: R55 Syncope and collapse (principal); M17.11 Unilateral primary osteoarthritis, right knee | CPT/HCPCS: 71045; 73560 ==

== ENCOUNTER → 2024-09-19 15:23 | Outpatient (BNV) | payer MEDICARE, SELFPAY | PROVIDERS: Admitting Provider Internal Medicine; Emergency Provider Emergency Medicine; PCP Physician Assistant; Visit Provider Internal Medicine | DX: R94.31 Abnormal electrocardiogram [ECG] [EKG] (principal); R55 Syncope and collapse | CPT/HCPCS: 99232 ==

== ENCOUNTER → 2024-09-19 15:23 | Outpatient (BNV) | payer MEDICARE, SELFPAY | PROVIDERS: Admitting Provider Internal Medicine; Emergency Provider Emergency Medicine; PCP Physician Assistant; Visit Provider Internal Medicine Cardiovascular Disease | DX: R55 Syncope and collapse (principal) | CPT/HCPCS: 99222 ==

== ENCOUNTER 2024-09-21 10:11 | Outpatient (BNV) | payer MEDICARE, SELFPAY | END 2024-09-21 19:11 | PROVIDERS: Admitting Provider Internal Medicine; Emergency Provider Emergency Medicine; PCP Physician Assistant; Visit Provider Internal Medicine Cardiovascular Disease | DX: R94.31 Abnormal electrocardiogram [ECG] [EKG] (principal); Z95.0 Presence of cardiac pacemaker | CPT/HCPCS: 93010 ==

== ENCOUNTER 2024-09-21 10:11 | Outpatient (BNV) | payer MEDICARE, SELFPAY | END 2024-09-22 09:00 | PROVIDERS: Admitting Provider Internal Medicine; Emergency Provider Emergency Medicine; PCP Physician Assistant; Visit Provider Radiology Diagnostic Radiology | DX: R55 Syncope and collapse (principal) | CPT/HCPCS: 71046 ==

== ENCOUNTER 2024-09-21 10:11 | Outpatient (BNV) | payer MEDICARE, SELFPAY | END 2024-09-21 19:15 | PROVIDERS: Admitting Provider Internal Medicine; Emergency Provider Emergency Medicine; PCP Physician Assistant; Visit Provider Radiology Neuroradiology | DX: J98.11 Atelectasis (principal) | CPT/HCPCS: 71045 ==

== ENCOUNTER → 2024-09-21 10:11 | Outpatient (BNV) | payer MEDICARE, SELFPAY | PROVIDERS: Admitting Provider Internal Medicine; Emergency Provider Emergency Medicine; PCP Physician Assistant; Visit Provider Physician Assistant | DX: M25.561 Pain in right knee (principal); M17.11 Unilateral primary osteoarthritis, right knee | CPT/HCPCS: 99222; 99358 ==

== ENCOUNTER 2025-01-04 11:56 | Inpatient (IN) | payer MEDICARE, SELFPAY ==
--- OUTSIDE RECORDS SUMMARY | 2022-11-02 11:38 | XMS_ITS | Encounter Summary ---
Author Organization [facility] Address [address] [place] [address] Phone Care Team Providers Care Radio Electronics Officer Name Role Phone Jolynn Jasmine PRIME MINISTER Primary Care Provider Encounter Details Date Type Department Care Team (Late st Contact Info) Description 11/02/2022 11:38 AM EDT Hospital Encounter [facility] [address] [place] [address] [phone] Annie Rivers, PRIME MINISTER [address] [place] [address] [email or web address] Social History Tobacco Use Types Packs/Day [...] right hip or pelvis. us Annie Rivers PRIME MINISTER IMG XR PELVIS Final Resul t documented in this encounter Visit Diagnoses Not on filedocumented in this encounter Care Teams Radio Electronics Officer Relationship Specialty Start Date End Date Jolynn Jasmine NP PCP - General Nurse Practitioner 10/29/22 documented as of this encounter Additional Source Comments The information contained in this document represents components of the legal health record. It is not the complete legal health record.[facility]
[2025-01-04] VITALS (17 sets, daily range): BP systolic 102–157; BP diastolic 54–101; PULSE 75–186; RESP 12–28; TEMP 36.1–37.1; O2SAT 88–99; BMI 18.6; BMI 20.7
--- NOTE | ~2025-01-04 | CT_ITS ---
EXAMINATION: CT CHEST WITH CONTRAST CLINICAL INFORMATION: Dyspnea, leukocytosis. COMPARISON: No prior CT. Chest x-ray earlier same day. TECHNIQUE: Multidetector volumetric CT imaging of the chest was obtained after the administration of 85 mL of Omnipaque 350 intravenous contrast without immediate adverse reactions. Axial MIP volume rendering provided. Sagittal and coronal reformatted images were obtained. This CT examination was performed using dose optimization techniques as appropriate, variously including the following: *Automated exposure control *Adjustment of mA and/or kV according to patient size (this includes techniques or standardized protocols for targeted exams where dose is matched to indication/reason for exam; i.e. extremities or head) *Use of iterative reconstruction technique FINDINGS: LUNGS: There is mild interstitial pulmonary edema. There are small layering pleural effusions bilaterally, with mild passive atelectasis associated. There is mild discoid type atelectasis in the lingula and also in the right middle lobe. The small airways demonstrates minimal thickening diffusely. No bronchiectasis. No definite pneumonic infiltrate noted. MEDIASTINUM: There is a dual-lead pacer/AICD with leads extending of the right atrium and right ventricle. There is cardiomegaly. There is a moderate to large sized pericardial effusion. There are moderate coronary calcifications. There are numerous small to moderate-sized lymph nodes within the mediastinum, the largest in the precarinal region measuring 1.3 cm short axis. There are of uncertain etiology but are presumably reactive. There are small hilar lymph nodes as well, most significant in the right inferior hilum measuring 9 mm short axis. The aorta is heavily calcified and ectatic. There is no aneurysm or acute aortic syndrome. The main pulmonary artery is enlarged and dilated, suggesting pulmonary arterial hypertension. Normal thyroid. No esophageal pathology. AXILLA: There are prominent axillary lymph nodes bilaterally, measuring up to 1 cm short axis bilaterally. UPPER ABDOMEN: Please refer to the dedicated abdomen and pelvis CT performed currently. OSSEOUS STRUCTURES: Sclerosis with mild compression deformity of T3, consistent with old healed burst fracture, possibly pathologic. This was noted on prior CT cervical 09/19/2024. T6 and T7 compression deformities, chronic. There are left-sided old rib fractures present. There are no additional definitive pathologic bone lesions detected. CT/CT chest w IV con IMPRESSION: 1. Cardiomegaly with moderate to large sized pericardial effusion. Dilatation of the main pulmonary artery suggesting pulmonary arterial hypertension. 2. Small layering pleural effusions with associated passive atelectasis of the lower lobes. 3. Mild interstitial pulmonary edema present. Linear atelectasis in the lingula and right middle lobe. No definite pneumonic infiltrate. 4. Mediastinal lymphadenopathy, uncertain significance or etiology. There are prominent axillary lymph nodes measuring up to 1 cm as well. 5. Heavy calcification and ectasia of the aorta without aneurysm or acute aortic syndrome. 6. Dual-lead AICD device in place. 7. Old healed burst fracture of T3, with underlying sclerosis, possible subacute pathologic fracture. This was present on prior CT cervical 09/19/2024. Electronically signed by: Johnny Lockett MD 01/04/2025 03:57 PM EDT
--- NOTE | ~2025-01-04 | CT_ITS ---
EXAMINATION: CT ABDOMEN AND PELVIS WITH CONTRAST CLINICAL INFORMATION: Abdominal pain. Diffuse abdominal tenderness. COMPARISON: None available. TECHNIQUE: Multidetector volumetric images were obtained from the superior aspect of the liver through the pubic symphysis following administration 85 mL of Omnipaque 350 intravenous contrast. Sagittal and coronal reformatted images were obtained on the technologist's workstation. Oral contrast: No This CT examination was performed using dose optimization techniques as appropriate, variously including the following: *Automated exposure control *Adjustment of mA and/or kV according to patient size (this includes techniques or standardized protocols for targeted exams where dose is matched to indication/reason for exam; i.e. extremities or head) *Use of iterative reconstruction technique DLP: 472 mGy centimeter. FINDINGS: LUNG BASES: Bilateral pleural effusions, moderate volume. There is pericardial effusion, moderate to large volume. The heart appears prominent. An electrode leads in the right ventricle. LIVER, GALLBLADDER, AND BILIARY TREE: Liver measures 14 cm. No focal lesion. Subcentimeter hypodensities in the left hepatic lobe. Heterogeneous enhancement pattern. Nodular surface. Main portal vein and hepatic veins are grossly patent. No intrahepatic or extrahepatic biliary ductal dilatation. Absent gallbladder. PANCREAS: No focal mass. No peripancreatic fluid collection. No main pancreatic ductal dilatation. SPLEEN: 8 cm. No mass. ADRENAL GLANDS: No nodular lesions. KIDNEYS AND URETERS: Right kidney is pelvic. Left kidneys normal anatomic location. No hydronephrosis. No gross renal mass. No gross nephrolithiasis. Cystic lesions in the left kidney. BLADDER: Fluid-filled. GASTROINTESTINAL TRACT: Gas and fluid-filled mildly prominent small bowel loop. No intestinal obstruction pattern. Collapsed appearance of the left hemicolon. No pneumatosis intestinalis. No pneumoperitoneum. No ascites. No peripheral enhancing fluid collection. I cannot clearly identify the appendix. ABDOMINAL WALL: No gross umbilical hernia. LYMPH NODES: No lymphadenopathy. VASCULAR: Calcified plaques throughout the abdominal aorta wall and iliac arteries the origin of the mesenteric arteries the main renal arteries and in the splenic artery. No aneurysm or dissection abdominal aorta. PELVIC VISCERA: Absent uterus. OSSEOUS STRUCTURES: There are 3 metallic screws through the right femoral head neck with foreshortening of the right femoral neck and deformity of the right femoral head, old. Multilevel thoracolumbar spondylosis. No acute fracture or listhesis in the axial skeleton. CT/CT abdomen pelvis w IV con IMPRESSION: Moderate to large pericardial effusion cardiac tamponade cannot be excluded. Bilateral pleural effusions, moderate volume. Atherosclerosis disease. No intestinal obstruction pattern. Findings communicated to the requesting physician Dr.Jordan North chapa at 3:43 PM on January 04, 2025. Fleischner guidelines were followed. Electronically signed by: Lloyd Vidales MD 01/04/2025 03:50 PM EDT
--- NOTE | ~2025-01-04 | XR_ITS ---
EXAMINATION: XR CHEST CLINICAL INFORMATION: cough, sob COMPARISON: 09/22/2024, 09/21/2024. TECHNIQUE: AP view of the chest was obtained. FINDINGS: There is a dual-lead pacer device with leads in the right atrium and right ventricle. There is mild cardiac prominence. This may be secondary to magnification from AP technique. There is aortic mural calcification. The hilar silhouettes are normal. Lungs demonstrate hyperaeration and hyperlucency suggestive of COPD. There are increased markings in the retrocardiac region suggestive of possible pneumonia. The right lung appears clear. No pneumothorax or effusion. No focal osseous or soft tissue abnormality. XR/XR chest 1V IMPRESSION: COPD. Dual-lead pacer device in good position. Increased markings in the retrocardiac region suggestive of possible pneumonia. Electronically signed by: Johnny Lockett MD 01/04/2025 12:58 PM EDT
--- NOTE | 2025-01-04 12:15 | ECG_ITS ---
Test Reason : SHORT OF BREATH Blood Pressure : */* mmHG Vent. Rate : 87 BPM Atrial Rate : 87 BPM P-R Int : 96 ms QRS Dur : 80 ms QT Int : 404 ms P-R-T Axes : 41 54 90 degrees QTcB Int : 486 ms Sinus rhythm with short SD Otherwise normal ECG When compared with ECG of 21-Sep-2024 19:11, T wave inversion no longer evident in Anterior leads Referred By: Clifford Kat Electronically Signed By: SHARMIN ROJAS
--- NOTE | 2025-01-04 12:35 | ED_ITS ---
HPI - General Adult General Chief complaint: General Medical Stated complaint: sob, 94%ra er ems Time Seen by Provider: 01/04/25 12:01 History of Present Illness ED Provider: Clifford Kat MD HPI narrative: 79-year-old female brought in by EMS initial call for shortness of breath neighbors state patient declining patient suspected to have failure to thrive she had feces on her feet and complained of abdominal pain per EMS Related Data Home Medications ?Medication ?Instructions ?Recorded ?Confirmed omeprazole 20 mg capsule,delayed 20 mg PO DAILY@0630 0 09/19/24 01/04/25 release amlodipine 5 mg tablet 5 mg PO DAILY 01/04/2501/04 lidocaine 4 % topical patch 1 patch transdermal DAILY PRN Pain 01/04/25 01/04/25 (Lidocaine Pain Relief) ropinirole 1 mg tablet 2 mg PO TID PRN Restless Leg (S) 01/04/25 01/04/25 Previous Rx's ?Medication ?Instructions ?Recorded acetaminophen 325 mg tablet 650 mg (2 x 325 mg) PO Q6H PRN 11/23/23 pain #60 tabs albuterol sulfate 90 mcg/actuation 2 puff inhalation Q 4-6H PRN 05/22/24 aerosol inhaler shortness of breath or wheez ing 1 month #8.5 grams blood pressure monitor #1 ea 05/22/24 cyanocobalamin (vitamin B-12) 1,000 mcg sublingual FAUZIA LY #90 ea 05/22/24 1,000 mcg sublingual lozenge ferrous sulfate 325 mg (65 mg 325 mg PO BID 30 days #6 0 tabs 05/22/24 iron) tablet (Feosol) folic acid 1 mg tablet 1 mg PO DAILY #90 tabs 05/22 cholecalciferol (vitamin D3) 125 125 mcg PO DAILY #90 caps 09/18/24 mcg (5,000 unit) capsule pravastatin 40 mg tablet 40 mg PO DAILY 90 days #90 t abs 09/19/24 Allergies Allergy/AdvReac Type Severity Reaction Status Date / Time oxycodone (From OxyContin) Allergy Mild Hives Verified 01/04/25 12:23 Primeperole Allergy Mild Hives & Uncoded 09/19/24 11:13 Swollen legs PMFSH Past Medical History PMFSH Narrative: PMH documented on previous PCP note in September 2024 tobacco use disorder microcytic anemia, hyperlipidemia rheumatoid arthritis with long-term use of hydroxychloroquine, restless leg syndrome and COPD. Medical History 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 Social History Social History Household Members: None Housing: Apartment Are you a primary urgent care nurse practitioner to a significant other at home: No Do you presently have visiting nurse or other home services: No Alcohol intake: never Comment: Patient at times refusing bed alarm Patient Tobacco Use Status: Current everyday Tobacco user Tobacco use type: Cigarette Cigarette Packs Per Day: 0.5 Cigarettes Per Day: 10.0 Years Smoked: 59 e-Cigarette/Vaping Use: Currently Using Second Hand Smoke Exposure: No Advance Directives Date on File: 09/10/23 service: No Current occupational status: retired 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 Skin: ?No observable rash or bruising on exposed or examined skin Respiratory: No distress, speaking full sentences, mild expiratory wheeze bilateral Cardiovascular: Regular rate and rhythm. No murmurs or rub. Well perfused periphery, warm extremities. No edema. ? Abdominal: Minimal diffuse tenderness. Soft, no objective distension. No palpable masses or obvious organomegaly. ?No guarding, no rebound tenderness or other peritoneal findings. : No flank tenderness. Neuro: Alert. Gross movement of all extremities intact. ? Psych: Calm. Cooperative. MSK: No grossly visible deformity. Vital signs: See flowsheet Vital Signs: Vital Signs - 24 hr 01/04/25 12:19 01/04/25 13:32 01/04/25 13:32 Temperature 98.8 F 98.8 F Pulse Rate 88 85 85 Respiratory Rate 15 16 16 Blood Pressure 140/61 H 155/101 H Pulse Oximetry 95 95 Oxygen Delivery Method Room Air Room Air BMI result Body Mass Index 18.6 Course Reevaluation(s) Reevaluation #1: Sepsis identification: Identification occurred at 14:00 upon results of WBC count greater than 30 this in conjunction with suspected infection which in his case would be retrocardiac opacity on x-ray patient qualifies for sepsis but not severe sepsis. There has been no hypotension. I have ordered blood cultures to be given before antibiotics, given the profound anemia ordered 2 units PRBC. The patient does not have overt GI bleeding. Reevaluation #2: 1451 lactate 1.5. No laboratory evidence of severe sepsis criteria. Reevaluation #3: 15:25 I was notified by nursing staff the patient's heart rate in the 160s to 180s now. It came with the bedside the patient was awake alert oriented in AFib with RVR in the 180s. She. Well-perfused was mentating. Upon chart review there was no history of AFib. Additional Reevaluation(s): 1600: Patient's AFib broke after 10 mg diltiazem bolus. I was notified at this time by Radiology that there was a pericardial effusion and did a bedside echo see report above in brief summary the patient has a large pericardial effusion without physiologic tamponade. Medications Administered Generic Name Dose Route Start Last Admin Trade Name Freq PRN Reason Stop Dose Admin Amlodipine Besylate 5 mg 01/05/25 09:00 01/05/25 11:17 Amlodipine Besylate 5 Mg Tablet PO 5 mg DAILY GABRIELA Administration Protocol Cyanocobalamin 1,000 mcg 01/05/25 09:00 01/05/25 10:57 Cyanocobalamin (Vitamin B-12) 1,000 Mcg Tablet PO Not Given DAILY [facility] Ferrous Sulfate 324 mg 01/05/25 09:00 01/05/25 21:16 Ferrous Sulfate 324 Mg Tablet. PO 324 mg BID GABRIELA Administration Folic Acid 1 mg 01/05/25 09:00 01/05/25 11:21 Folic Acid 1 Mg Tablet PO Not Given DAILY [facility] Furosemide 40 mg 01/04/25 16:10 01/05/25 11:18 Furosemide 40 Mg/4 Ml Vial IVPUSH 40 mg DAILY GABRIELA Administration Protocol Pravastatin Sodium 40 mg 01/05/25 09:00 01/05/25 11:21 Pravastatin Sodium 40 Mg Tablet PO Not Given DAILY GABRIELA Ropinirole HCl 2 mg 01/04/25 22:17 01/05/25 16:40 Ropinirole Hcl 2 Mg Tablet PO 2 mg TID PRN Administration Restless Leg(S) Sodium Chloride 3 ml 01/04/25 16:00 01/05/25 21:16 0.9 % Sodium Chloride Flush 3 Ml Syringe IVFLUSH 3 ml QSHIFT GABRIELA Administration Vitamin D 125 mcg 01/05/25 09:00 01/05/25 10:56 Cholecalciferol (Vitamin D3) 25 Mcg Tablet PO Not Given DAILY GABRIELA Discontinued Medications Generic Name Dose Route Start Last Admin Trade Name Freq PRN Reason Stop Dose Admin Albuterol/Ipratropium 3 ml 01/04/25 12:56 01/04/25 13:23 Albuterol/Iprat 2.5/0.5mg 3 Ml Ampul.Neb INHALE 01/04/25 12:57 3 ml ONCE ONE Administration Azithromycin 500 mg 01/04/25 13:16 01/04/25 14:23 Azithromycin 500 Mg Tablet PO 01/04/25 13:17 500 mg ONCE ONE Administration Ceftriaxone Sodium 1 gm 01/04/25 13:16 01/04/25 14:19 Ceftriaxone Sodium 1 Gm Vial IVPUSH 01/04/25 13:17 1 gm ONCE ONE Administration Diltiazem HCl 10 mg 01/04/25 15:30 01/04/25 15:33 Diltiazem Hcl 50 Mg/10 Ml Vial IVPUSH 01/04/25 15:31 10 mg ONCE ONE Administration Diltiazem HCl 0 mg 01/04/25 15:43 01/04/25 15:47 Diltiazem Hcl 50 Mg/10 Ml Vial IVPUSH 01/04/25 15:44 Not Given ONCE ONE Protocol Methylprednisolone Sodium Succinate 80 mg 01/04/25 12:56 01/04/25 13:14 Methylprednisolone Sod Succ 125 Mg/2 Ml Vial IVPUSH 01/04/25 12:57 80 mg ONCE ONE Administration Pantoprazole Sodium 80 mg 01/04/25 14:29 01/04/25 15:50 Pantoprazole Sodium 40 Mg/10 Ml Vial IVPUSH 01/04/25 14:30 80 mg ONCE ONE Administration Procedures Procedure Narrative Procedure Narrative: EMERGENCY ULTRASOUND INTERPRETATION-Limited Echocardiography [This study was ordered, performed, and interpreted by myself. The study reveals: Impression: NORMAL LV FUNCTION, NO RV DYSFUNCTION, large pericardial effusion without tamponade physiology [Emergent Cardiac for Indication: Views Used: PLAX, PSSA, A4, SX, IVC Pericardial Effusion/Tamponade Findings: Large, no tamponade physiology present on trans mitral inflow variations RV Dilation (> LV diam in 4ch apical): NONE Global LV Fxn: NORMAL IVC Dilation and Resp Variation: Plethoric Incidentally seen properly positioned ICD wire Performed by: MD North Images were stored CPT:83381] Medical Decision Making Medical Decision Making MDM Narrative: Medical Decision Makin-year-old female brought in for neighbor concerns that she was failing to thrive patient herself reports chronic shortness of breath and diffuse abdominal discomfort poorly localized for about 2-3 days. Denies cough hemoptysis. EMS reported that she had feces covering her feet when they picked her up she lives alone. She had a mild bilateral wheeze but no distress. Chest x-ray showed left retrocardiac infiltrate. Patient arrived afebrile normal vital signs. Lab work identified significant leukocytosis however she has got thrombocytosis and severe anemia this all appears new this maybe hematologic malignancy less likely acute reactive leukocytosis or infection related despite this we will cover broadly and get blood cultures. Plan for PRBC transfusion x2. Patient has not reported nor do I see any active rectal bleeding bright red blood or melena. ECG sinus rhythm no acute ischemic changes Preliminary Favored Differential Diagnosis: Dehydration, electrolyte derangement, sepsis, pneumonia, UTI, intra-abdominal infection, hematologic melena malignancy, slow gastrointestinal bleed upper favored over lower if this is etiology of the anemia. Vitamin deficiency nutritional deficiency, failure to thrive deconditioning among additional considered etiologies Testing Interpreted Independently: ?See below for details Radiology or Lab testing Results Reviewed: ?See below for details Consults: ?See below for details Independent Historians/External Chart Reviews: ?See below for details Social Determinants of Health Impacting MDM/Planning: ?See below for details Differential Diagnosis Differential Diagnoses: The differential diagnosis associated with the presentation includes inary Favored Differential Diagnosis: Dehydration, electrolyte derangement, sepsis, pneumonia, UTI, intra-abdominal infection, hematologic melena malignancy, slow gastrointestinal bleed upper favored over lower if this is etiology of the anemia. Vitamin deficiency nutritional deficiency, failure to thrive deconditioning among additional considered etiologies Lab Data MDM Lab Attestation statement: I reviewed the patient's lab results. 01/05/25 05:58 01/05/25 05:58 Labs: Lab Results 01/04/25 01/04/25 Range/Units 13:30 14:11 WBC 30.1 H* (4.8-10.8) X10*3/uL RBC 2.37 L D (4.20-5.50) X10*6/uL Hgb 4.6 L* D (12.0-16.0) g/dl Hct 15.6 L* D (37.0-47.0) % MCV 65.8 L (80.0-98.0) fL MCH 19.4 L (27.0-33.0) pg MCHC 29.5 L (31.0-35.0) g/dl RDW 20.9 H (11.0-16.0) % Plt Count 778 H D (160-400) X10*3/uL MPV 9.0 L (9.4-12.3) fL Immature Gran % (Auto) 1.8 H (0.0-0.4) % Neut % (Auto) 87.4 H (45-73) % Lymph % (Auto) 4.0 L (20-40) % Camas % (Auto) 6.5 (2-11) % Eos % (Auto) 0.1 (0-4) % Baso % (Auto) 0.2 (0-2) % Lymph # (Auto) 1.2 (1.2-4.9) X10*3/uL [place] # (Auto) 2.0 H (0.1-1.2) X10*3/uL Eos # (Auto) 0.0 (0.0-0.4) X10*3/uL Baso # (Auto) 0.1 (0.0-0.2) X10*3/uL Abs Immat Gran (auto) 0.53 H (0.00-0.03) X10*3/uL Absolute Neuts (auto) 26.4 H (2.0-8.3) x10*3/uL Absolute Nucleated RBC 0.050 H (0.0-0.012) X10*3/uL Nucleated RBC % (auto) 0.2 (0.0-0.2) /100WBC Smear Tech's Comments VERIFIED Absolute Retic 0.073 (0.026-0.095) X10*6/uL Percent Retic 3.1 H (0.5-1.8) % Immature Retic Fraction 33.0 H (3.0-15.9) % Retic Hgb Equivalent 15.2 L (30.0-35.0) pg PT 14.6 H D (10.9-12.4) SEC INR 1.3 H (0.9-1.1) APTT 29.3 (26.7-34.1) SEC Sodium 134 L (135-145) mmol/L Potassium 3.7 (3.3-5.1) mmol/L Chloride 105 (96-108) mmol/L Carbon Dioxide 20 L (22-29) mmol/L Anion Gap 13 (12-20) BUN 15 (9-16) mg/dL Creatinine 0.73 (0.5-1.4) mg/dL Estim Creat Clear Calc 44.7 Estimated GFR > 60 Random Glucose 99 (60-115) mg/dL Lactic Acid 1.5 (0.5-2.0) mmol/L Calcium 7.8 L D (8.4-10.2) mg/dL Phosphorus 4.0 (2.7-4.5) mg/dL Magnesium 1.9 (1.6-2.6) mg/dL Iron 7 L (30-160) mcg/dL TIBC 258 (228-428) mcg/dL % Saturation 3 L (15-50) % Unsat Iron Binding 251 ug/dL Total Bilirubin 0.5 (0.0-1.0) mg/dL AST 21 (5-31) U/L ALT 7 (0-31) U/L Alkaline Phosphatase 67 (39-117) U/L Lactate Dehydrogenase 310 H (122-220) U/L B-Natriuretic Peptide 576 H (<100) pg/mL Total Protein 6.0 L (6.5-8.0) g/dL Albumin 2.7 L (3.5-5.0) g/dL TSH 1.74 (0.32-4.0) uIU/mL COVID-19 (SHIMA) Negative (Negative) COVID-19 Clin Com See Note Blood Type A Positive Antibody Screen POSITIVE Antibody Identification Inconclusive Antigen Identification C Antigen - POSITIVE Crossmatch (AHG) See Detail Independent Interpretation I performed an independent interpretation of an: EKG (Sinus rhythm no acute ischemic changes short SD) External Record Review External record reviewed: Outpatient record Prescription Management I considered prescription management with: Antibiotic Social Determinants Patient?s care significantly limited by Social Determinants of Health including: Other Social Determinant of Health (Inadequate home support) Critical Care Time Critical Care Time Critical Care Time: Yes Total Critical Care Time: 100 Attestation: ED Critical Care: Severe anemia requiring PRBC transfusion Severe tachyarrhythmia new onset atrial fibrillation requiring intravenous rate control Authorized and Performed by: Clifford Kat MD Total critical care time: Approximately 100 Due to a high probability of clinically significant, life threatening deterioration, the patient required my highest level of preparedness to intervene emergently and I personally spent this critical care time directly and personally managing the patient. This critical care time included obtaining a history; examining the patient; pulse oximetry; ordering and review of studies; arranging urgent treatment with development of a management plan; evaluation of patient's response to treatment; frequent reassessment; and, discussions with other providers. This critical care time was performed to assess and manage the high probability of imminent, life-threatening deterioration that could result in multi-organ failure. It was exclusive of separately billable procedures and treating other patients and teaching time. Discharge Plan Discharge Clinical Impression: Pneumonia, Anemia Patient Disposition: Admitted As Inpatient Interventions: Admission Worksheet (ED) Last Done: 01/04/25 20:03 Discharge Date/Time: 01/04/25 20:53
[2025-01-04] MEDS: Albuterol/Iprat 2.5/0.5MG 3 ML AMPUL.NEB INHALE (13:23)
--- NOTE | 2025-01-04 13:32 | PC.NURSE ---
pt awake/alert to person place, ekg performed, monitoring tech applied, labs drawn, covid swab performed, pt extremly difficult stick- blood cultures were added after labs drawn- phlebotomy had to be called to get the blood cultures- they are currently at bedside, will hang abx as soon as bc have been obtained. pt was cleaned as her lower extremities were covered with feces- case management was otified of this as well. call franklin within reach, plan of care ongoing.
--- NOTE | 2025-01-04 13:40 | PC.NURSE ---
phlebotomy phlebotomy was unable to obtain the blood cultures, additional ED staff to attempt
--- OUTSIDE RECORDS SUMMARY | 2025-01-04 13:40 | XMS_ITS | Encounter Summary ---
Author Organization [facility] Address [address] [place] [address] Care Team Providers Care Line Helper Name Role Phone John Diamond MD Primary Care Provide r Jennifer Winchester MD Primary Care Provider Unavailabl e [facility], Pcp Primary Care Provider Unavailabl e Reason for Visit * Reason Onset Date Comments Provider Call Back 07/19/2019 Call From Hospital 07/19/2019 [facility] Deni venegas Encounter Details Date Type Department Care Team Description 07/19/2019 Telephone Gastroenterology - [place] [address] [facility] [address] [place] [address] Carmita Gregory MD [address] [place] [id number] Provider Call Back; [facility] Social History Tobacco Use Types Packs/Day Years [...] encounter Miscellaneous Notes * Telephone Encounter - Sera Mansfieldue - 07/19/2019 4:42 PM EDT Caller requesting call back from provider: Is the caller the patient? NO If caller is not the patient, what is the callers name? Meche Callers relationship to patient? 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 If person calling is not the patient themselves, is there a verbal release in FYI or permanent comments for this person: NO Reason for call back: Dr. Bolaños needs the ammonium hydroxide operator GI doctor to call his back aby. Caller offered to speak with the nurse for assistance: NO Response: Patient offered to speak with nurse to assist them: refused offer documented in this encounter Plan of Treatment Not on file documented as of this encounter Visit Diagnoses Not on filedocumented in this encounter Care Teams Line Helper Relationship Specialty Start Date End Date John Diamond MD PCP - General Internal Medicine 01/03/19 Jennifer Bhagat MD PCP - General Anesthesiology 10/31/20 10/31/20 [facility], Pcp PCP - General Internal Medicine 03/21/21 documented as of this encounter
--- OUTSIDE RECORDS SUMMARY | 2025-01-04 13:40 | XMS_ITS | Encounter Summary ---
Author Organization [facility] [employer] [facility] Address [address] [place] [address] Care Team Providers Care Primary School Principal Name Role Phone John Diamond MD Primary Care Provide r Unavailable Jennifer Bhagat MD Primary Care Provider Unavailabl e [facility], Pcp Primary Care Provider Unavailabl e Encounter Details Date Type Department Care Team Description 07/20/2019 [facility] Medical Records [address] [place] [id number] Lachelle Dean MD Social History Tobacco Use [...] on filedocumented in this encounter Care Teams Primary School Principal Relationship Specialty Start Date End Date John Diamond MD PCP - General Internal Medicine 01/03/19 Jennifer Bhagat MD PCP - General Anesthesiology 10/31/20 10/31/20 [facility], Pcp PCP - General Internal Medicine 03/21/21 documented as of this encounter
--- OUTSIDE RECORDS SUMMARY | 2025-01-04 13:40 | XMS_ITS | Encounter Summary ---
Author Organization [employer] [facility] Address [address] [place] [address] Care Team Providers Care Church History Professor Name Role Phone John Diamond MD Primary Care Provide r Unavailable Jennifer Bhagat MD Primary Care Provider Unavailabl e [facility], Pcp Primary Care Provider Unavailabl e Encounter Details Date Type Department Care Team Description 06/09/2019 [facility] Medical Records [address] [place], [place] [id number] [place] [address] Social History Tobacco Use Types Packs/Day Years [...] on filedocumented in this encounter Care Teams Church History Professor Relationship Specialty Start Date End Date John Diamond MD PCP - General Internal Medicine 01/03/19 Jennifer Bhagat MD PCP - General Anesthesiology 10/31/20 10/31/20 [facility], Pcp PCP - General Internal Medicine 03/21/21 documented as of this encounter
--- OUTSIDE RECORDS SUMMARY | 2025-01-04 13:40 | XMS_ITS | Encounter Summary ---
Author Organization [employer] [facility] Address [address] [place] [address] Care Team Providers Care Block Placer Name Role Phone John Diamond MD Primary Care Provide r Unavailable Jennifer Bhagat MD Primary Care Provider Unavailabl e [facility], Pcp Primary Care Provider Unavailabl e Encounter Details Date Type Department Care Team Description 05/17/2019 Release of Information Medical Records [address] [place] [address] Abstract, Provider Social History Tobacco Use Types [...] on filedocumented in this encounter Care Teams Block Placer Relationship Specialty Start Date End Date John Diamond MD PCP - General Internal Medicine 01/03/19 Jennifer Bhagat MD PCP - General Anesthesiology 10/31/20 10/31/20 [facility], Pcp PCP - General Internal Medicine 03/21/21 documented as of this encounter
--- OUTSIDE RECORDS SUMMARY | 2025-01-04 13:40 | XMS_ITS | Encounter Summary ---
Author Organization [facility] Address [address] [place] [address] Care Team Providers Care Aerial Lineman Name Role Phone John Diamond MD Primary Care Provide r Unavailable Jennifer Bhagat MD Primary Care Provider Unavailabl e [facility], Pcp Primary Care Provider Unavailabl e Reason for Visit * Reason Comments E-prescribe Rx Request Encounter Details Date Type Department Care Team Description 07/06/2019 Refill Rheumatology [address] [address] Bradford Bales PA E-prescribe Rx Request Social [...] on filedocumented in this encounter Care Teams Aerial Lineman Relationship Specialty Start Date End Date John Diamond MD PCP - General Internal Medicine 01/03/19 Jennifer Bhagat MD PCP - General Anesthesiology 10/31/20 10/31/20 [facility], Pcp PCP - General Internal Medicine 03/21/21 documented as of this encounter
--- OUTSIDE RECORDS SUMMARY | 2025-01-04 13:40 | XMS_ITS | Encounter Summary ---
Author Organization [employer] [facility] Address [address] [place] [address] Care Team Providers Care Exhaust Machine Operator Name Role Phone John Diamond MD Primary Care Provide r Unavailable Jennifer Bhagat MD Primary Care Provider Unavailabl e [facility], Pcp Primary Care Provider Unavailabl e Encounter Details Date Type Department Care Team Description 06/09/2019 [facility] Medical Records [address] [place] [id number] Richi Segundo MD Social History Tobacco Use [...] on filedocumented in this encounter Care Teams Exhaust Machine Operator Relationship Specialty Start Date End Date John Diamond MD PCP - General Internal Medicine 01/03/19 Jennifer Bhagat MD PCP - General Anesthesiology 10/31/20 10/31/20 [facility], Pcp PCP - General Internal Medicine 03/21/21 documented as of this encounter
--- OUTSIDE RECORDS SUMMARY | 2025-01-04 13:40 | XMS_ITS | Encounter Summary ---
Author Organization [facility] Address [address] [facility] [address] [place] [phone] Phone Care Team Providers Care Pile Trimmer Name Role Phone Bradford Bales Primary Care Provider Jennifer Bhagat MD Primary Care Provider [phone] Jolynn Jasmine NP Primary Care Provider Encounter Details Date Type Department Care Team (Late st Contact Info) Description 10/22/2020 Transcribe Orders Virtual Department [address] [place] [address] Jennifer Bhagat MD [address] [place] [address] [email or web address] Social History Tobacco Use Types Packs/Day Years Used Date Smoking Tobacco: Never Assessed Comments Unknown Sex and Gender Information Value Date Recorded Sex Assigned at Not on file Legal Sex Female 1:40 PM EDT Gender Identity Not on file Sexual Orientation Not on file documented as of this encounter Plan of Treatment Not on file documented as of this encounter Visit Diagnoses Not on filedocumented in this encounter Additional Health Concerns Infection Onset Date Last Indicated Resolved Time CoV-Risk 10/02/2022 10/02/2022 10/03/2022 12:3 6 PM EDT documented as of this encounter Care Teams Pile Trimmer Relationship Specialty Start Date End Date Bradford Bales PA [address] [place] [address] PCP - General Unknown Provider Specialty 12/26/20 1 Jennifer Bhagat MD [address] [place] [address] [email or web address] PCP - General Family Medicine 02/10/21 10/28/22 Jolynn Jasmine NP [address] [place] [phone] PCP - General Nurse Practitioner 10/29/22 documented as of this encounter Additional Source Comments The information contained in this document represents components of the legal health record. It is not the complete legal health record.[facility]
--- OUTSIDE RECORDS SUMMARY | 2025-01-04 13:40 | XMS_ITS | Clinical Summary ---
Author Organization [facility] Address [address] [id number] Phone Care Team Providers Care Churn Operator Margarine Name Role Phone Jolynn Jasmine Ally BEHAVIORAL HEALTH ASSISTANT Primary Care Provider Allergies Active Allergy Reactions Criticality Noted Date Comments Other 11/02/2022 Other reaction(s): cats, dogs, grass, pollen, trees Oxycodone Hives,Itching,Flushing 11/15/2013 Pramipexole Hives,Itching 06/13/2018 Medications rOPINIRole (REQUIP) 1 MG tablet Take two in the morning, two in the afternoon, and two at bedtime. 0 Active pravastatin (PRAVACHOL) 40 MG tablet Take 40 mg by mouth. 0 Active omeprazole (PRILOSEC) 20 MG capsule Take 20 mg by mouth. 0 Active methotrexate 2.5 MG Oral tablet TAKE 4 TABLETS BY MOUTH ONCE A WEEK 1 Active cyanocobalamin, vitamin B-12, 1000 MCG tablet Take 1,000 mcg by mouth daily. Active amLODIPine (NORVASC) 5 MG tablet Take 5 mg by mouth daily. 1 Active ferrous sulfate (IRON ORAL) Take 324 mg by mouth. Active ascorbic acid, vitamin C, (VITAMIN C) 1,000 mg TbER Take by mouth. A ctive CALCIUM ORAL Take 1 tablet by mouth 2 (two) times a day. Active folic acid (FOLVITE) 1 MG tablet Take 1 mg by mouth daily. Active acetaminophen (TYLENOL) 325 mg tablet Take 2 tablets (650 mg total) by mouth every 6 (six) hours as needed. 0 3 Active albuterol 90 mcg/actuation inhaler Inhale 2 puffs into the lungs every 6 (six) hours as needed for wheezing. 8 g 1 3 Active ipratropium-alb uteroL (COMBIVENT RESPIMAT) 20-100 mcg/actuation Mist Inhale 1 puff into the lungs 4 (four) times a day. 4 g 1 3 Active azithromycin (ZITHROMAX) 250 MG tablet 250 mg po daily for 3 days 3 tablet 3 Active Additional Information Patient not taking.Reported on 11/02/2022 benzonatate (TESSALON) 100 MG capsule Take 1 capsule (100 mg total) by mouth 3 (three) times a day as needed for cough. 20 capsule 3 Active nicotine (NICODERM CQ) 21 mg/[address] 1 patch onto the skin daily. Apply to a clean, dry, hairless site on the upper arm or hip. 30 patch 3 Active Additional Information Patient not taking.Reported on 11/02/2022 Active Problems Problem Noted Date Diagnosed Date Pneumonia of right lower lobe due to infectious organism 10/03/2022 Assessment & Plan (10/05/2022 7:57 AM EDT): Second chest x-ray showed no acute pathology Legionella and strep pneumo antigens were negative. Dyspnea improving, no hypoxia Home on Combivent and albuterol, complete azithromycin course. Recommend pulmonary follow-up as well as PFTs Other osteoporosis without current pathological fracture 02/05/2021 Assessment & Plan (01/13/2022 10:36 AM EDT): The patient has opted not to take antiresorptive medications she is going to continue calcium and vitamin D supplements. She would like to see what the DXA scan shows by 05/28/2023. If she remains in the osteoporotic range she may want to reconsider using antiresorptive medications. May she should continue vitamin D and calcium. I will request N-telopeptide procollagen levels for follow-up visit in 1 year. Assessment & Plan (08/12/2021 8:51 AM EDT): Currently not on an antiresorptive medications but is planning to have parathyroidectomy. She will benefit from antiresorptive medications postsurgically. She continues on vitamin D 1000 units. Dietary calcium is quite low and she is not taking any calcium supplements but she is going to require at least postoperative for certain. She has not yet implemented calcium intake. I encouraged her to start increasing her dietary calcium. Assessment & Plan (04/11/2021 9:43 AM EST): I have informed the patient that she can increase her dietary calcium. She has been avoiding any calcium products. She does not necessarily have to take calcium supplements right now. But she should have increasing dietary calcium intake because she is calcium deficient. I have explained to her that if she does not get any dietary calcium she is going to have elevated serum calcium regardless because of the hyperparathyroidism and the calcium was going to come from her bones due to bone resorption which will make osteoporosis worse and she will be at increased risk of fracture. She really should deal with the underlying etiology of her osteoporosis. She has many both 1 that we can definitely tackle his primary hyperparathyroidism. She should have parathyroidectomy. I think that once we manage this issue then we can discuss calcium supplements and antiresorptive management. Assessment & Plan (02/05/2021 12:15 PM EDT): It is unclear how long the patient has osteoporosis but she does have advanced osteoporosis. She has multiple risk factors for this and these include age, menopause, primary hyperparathyroidism, tobacco use, use of proton pump inhibitors, decrease calcium intake, and vitamin D deficiency. I requested a 24-hour urine calcium levels serum protein electrophoresis vitamin D levels. And a comprehensive. I have requested a DXA scan to be done April 28, 2021 at [facility] since apparently she is no longer following at [place] and is following at [facility]. I will give her a follow-up appointment in 2 months time. Hyperparathyroidism 02/05/2021 Assessment & Plan (10/04/2022 7:56 AM EDT): continue 1000 g of calcium daily. Assessment & Plan (01/13/2022 10:35 AM EDT): Status post parathyroidectomy, intact PTH normalized no further work-up. She does not report any tingling or numbness. Currently using calcium supplements 1000 mg twice a day. I will ask her to take 1000 mg of calcium daily with food in addition to her dietary calcium intake. Assessment & Plan (08/12/2021 8:50 AM EDT): Scheduled for parathyroidectomy and on 12/22/2021 will request PTH and calcium levels postoperatively. Assessment & Plan (04/11/2021 9:43 AM EST): The patient has primary hyperparathyroidism she has high normal serum calcium and elevated intact PTH. Sestamibi scan has localized into the inferior parathyroid gland. I will refer the patient for parathyroidectomy with endocrine surgeon Dr. Cecille Garcia at [facility]. Assessment & Plan (02/05/2021 12:03 PM EDT): The patient has primary hyperparathyroidism based on biochemical work-up. I am repeating the studies. I am also requesting sestamibi scan. I am requesting 24- hour urine calcium. So far she has 1 indication for parathyroidectomy. Rheumatoid arthritis Assessment & Plan (10/03/2022 8:39 AM EDT): Clinically stable. Continue outpatient regimen Tobacco dependence Assessment & Plan (10/04/2022 7:57 AM EDT): Evidence of hyperinflated lungs on chest x-ray. -Cessation materials given -Continues to decline replacement Syncope Assessment & Plan (10/05/2022 7:57 AM EDT): Per patient, patient has recurrent syncopal episode in the setting of any stress factors. Last syncopal episode was during COVID infection approximately 1 year ago. Stable telemetry, echocardiogram as outpatient Right shoulder pain Assessment & Plan (10/05/2022 7:57 AM EDT): She has limited mobility on right shoulder due to fall. X-ray was negative for fracture. -PT OT recommended as outpatient -Follow-up outpatient Ortho Family History Medical History Relation Comments Coronary artery disease Father Kidney disease Mother Relation Status Comments Father Mother Social History Tobacco Use Types Packs/Day Years [...] on file Sexual Orientation Not on file Last Filed Vital Signs Vital Sign Reading Time Taken Comments Blood Pressure 158/93 11/02/2022 11:24 AM EDT Pulse 86 11/02/2022 11:24 AM EDT Temperature 36.6 C (97.9 F) 11/02/2022 11:24 AM EDT Respiratory Rate 20 11/02/2022 11:24 AM EDT Oxygen Saturation 97% 11/02/2022 11:24 AM EDT Inhaled Oxygen Concentration - - Weight 54.4 kg (120 lb) 11/02/2022 11:24 AM EDT Height 154.9 cm (5' 1 ) 11/02/2022 11:24 AM EDT Body Mass Index 22.67 11/02/2022 11:24 AM EDT Plan of Treatment Health Maintenance Due Date Last Done Comments LIPID PANEL 1946 DEPRESSION SCREENING 1958 SMOKING Hx and SMOKELESS TOBACCO SCREENING 1959 HEPATITIS C SCREENING 02/10/1964 ZOSTER VACCINES (1 of 2) 1965 RSV VACCINE (1 - 1-dose 75+ series) 2021 BLOOD PRESSURE 05/04/2023 11/02/2022 COVID-19 VACCINE ( season) 2024 02/21/2021, 02/07/2021, 01/31/2021, Additional history exists Adult Td,Tdap Booster 10/22/2030 10/22/2020 PNEUMOCOCCAL VACCINES (50+ years) Completed 10/22/2020, 03/25/2016 OSTEOPOROSIS SCREENING INITIAL (ONE-TIME) Completed 05/28/2021 HEPATITIS A VACCINES Aged Out No long er eligible based on patient's age to complete this topic HIB VACCINES Aged Out No longer eligi ble based on patient's age to complete this topic MENINGOCOCCAL VACCINES (ACWY) Aged Out No longer eligible based on patient's age to complete this topic MENINGOCOCCAL VACCINES (B) Aged Out N o longer eligible based on patient's age to complete this topic Medical Devices Not on file Procedures Procedure Name Priority Date/Time Associated Diagnosis Comments BD DXA SPINE AND HIP WITH FOREARM Routine 05/28/2021 8:23 AM EST Other osteoporosis without current pathological fracture from Last 3 Months or Most Recently Relevant to Health Maintenance Results * BD DXA SPINE AND HIP WITH FOREARM (05/28/2021 8:23 AM EST) Anatomical Region Laterality Modality Bone Density Bone Density 05/28/2021 8:23 AM EST Impressions 05/28/2021 8:25 AM EST Lumbar spine, left forearm and left hip osteoporosis. Narrative 05/28/2021 8:25 AM EST COMPARISON: None. BONE DENSITY FINDINGS: History: This is a 76-year-old postmenopausal female. Evaluation of the lumbar spine, left hip and left forearm was performed and felt to be technically adequate. L1-L4 vertebral bodies total bone mineral density was calculated at 0.690 gm/cm2 with a T-score of -3.2 falling within the WHO classification of osteoporosis. Z-score of -0.8. High fracture risk. Left forearm bone mineral density was calculated at 0.379 gm/cm2 with a T-score of -3.6 falling within the WHO classification of osteoporosis. Z-score of -1. High fracture risk. Left femoral neck bone mineral density was calculated at 0.397 gm/cm2 with a T- score of -4.1 falling within the WHO classification of osteoporosis. Z-score of -2. Total Left hip bone mineral density was calculated at 0.484 gm/cm2 with a T- score of -3.8 falling within the WHO classification of osteoporosis. Z-score of -2. Procedure Note Zain Bruce MD - 05/28/2021 COMPARISON: None. BONE DENSITY FINDINGS: History: This is a 76-year-old postmenopausal female. Evaluation of the lumbar spine, left hip and left forearm was performedand felt to be technically adequate. L1-L4 vertebral bodies total bone mineral density was calculated at 0.690gm/cm2 with a T-score of -3.2 falling within the WHO classification ofosteoporosis. Z-score of -0.8. High fracture risk. Left forearm bone mineral density was calculated at 0.379 gm/cm2 with aT-score of -3.6 falling within the WHO classification of osteoporosis.Z-score of -1. High fracture risk. Left femoral neck bone mineral density was calculated at 0.397 gm/cm2 witha T- score of -4.1 falling within the WHO classification of osteoporosis.Z-score of -2. Total Left hip bone mineral density was calculated at 0.484 gm/cm2 with aT-score of -3.8 falling within the WHO classification of osteoporosis.Z-score of -2. IMPRESSION: Lumbar spine, left forearm and left hip osteoporosis. [place] ACEVEDO BD BONE DENSITY DEXA Final R esult from Last 3 Months or Most Recently Relevant to Health Maintenance Insurance MEDICARE PART A & B MEDICARE REPLACEMENT MEDICARE PART A & B [facility] MEDICARE REPLACEMENT MEDICARE PART A & [place] [address] [place] [address] MEDICARE REPLACEMENT MEDICARE PART A & B [facility] MEDICARE REPLACEMENT MEDICARE PART A & B Member Subscriber Plan / Payer (Ef fective 2012-Present) Name:Yoli Londono Member ID:[id number] Relation to Subscriber:Self Name:Yoli Londono Subscriber ID:[id number] Payer ID:[id number] Group ID:Not on file Type:Medicare Address: [facility] Mention Mobile [facility] [address] [place] [phone] [facility] MEDICARE REPLACEMENT MEDICARE PART A & B [employer] PPO MEDICARE REPLACEMENT MEDICARE PART A & B MEDICARE PART A & B MEDICARE PART A & B Advance Directives For more information, please contact: [phone] (9AM - 5PM [facility], Wednesday-Wednesday) * Full Code (Latest Code Status on File) Date Activated Date Inactivated Comments 10/03/2022 2:52 AM Question Answer Comments Code Status Confirmed With: Patient Code Status Communicated To: Inpatient Attending Care Teams Churn Operator Margarine Relationship Specialty Start Date End Date Jolynn Jasmine NP PCP - General Nurse Practitioner 10/29/22 Additional Source Comments The information contained in this document represents components of the legal health record. It is not the complete legal health record.[facility]
--- OUTSIDE RECORDS SUMMARY | 2025-01-04 13:40 | XMS_ITS | Encounter Summary ---
Author Organization [facility] Address [address] [place] [address] Care Team Providers Care Salesperson Sheet Music Name Role Phone Twan Worthington Primary Care Provider [phone] Katherine Catherine Primary Care Provider John Ayala MD Primary Care Provide r Unavailable Jennifer Bhagat MD [facility] Primary Care Provider Unavailabl e Encounter Details Date Type Department Care Team Description 11/17/2013 Release of Information Medical Records [address] [place] [address] Abstract, Provider Social History Tobacco Use Types [...] filedocumented in this encounter Care Teams Salesperson Sheet Music Relationship Specialty Start Date End Date Twan Worthington [address] [place] [address] PCP - General Pediatrics 10/30/13 04/19/18 Katherine Catherine [address] [place] [address] PCP - General Internal Medicine 04/20/18 01/02/19 John Diamond MD [address] [place] [address] PCP - General Internal Medicine 01/03/19 10/30/20 Jennifer Bhagat MD [address] [place] [address] PCP - General Anesthesiology 10/31/20 10/31/20 [facility], Pcp [address] [place] [address] PCP - General Internal Medicine 03/21/21 documented as of this encounter
--- OUTSIDE RECORDS SUMMARY | 2025-01-04 13:40 | XMS_ITS | Encounter Summary ---
Author Organization [facility] Address [address] [place] [address] Care Team Providers Care Hand Former Helper Name Role Phone John Diamond MD Primary Care Provide r Jennifer Winchester MD Primary Care Provider Unavailabl e [facility], Pcp Primary Care Provider Unavailabl e Reason for Visit * Reason Onset Date Comments hospital follow up 06/09/2019 Encounter Details Date Type Department Care Team Description 06/09/2019 Telephone Adult Medicine - [address] [address] John Diamond MD hospital follow up Social [...] appointment needed Hospital patient was treated at: [facility] Was this only an ER visit or [...] on filedocumented in this encounter Care Teams Hand Former Helper Relationship Specialty Start Date End Date John Diamond MD PCP - General Internal Medicine 01/03/19 Jennifer Bhagat MD PCP - General Anesthesiology 10/31/20 10/31/20 [facility], Pcp PCP - General Internal Medicine 03/21/21 documented as of this encounter
--- OUTSIDE RECORDS SUMMARY | 2025-01-04 13:40 | XMS_ITS | Encounter Summary ---
Author Organization [facility] Address [address] [facility] [address] [place] [phone] Phone Care Team Providers Care Belt Cleaner Name Role Phone Bradford Bales Primary Care Provider Jennifer Bhagat MD Primary Care Provider [phone] Jolynn Jasmine NP Primary Care Provider Encounter Details Date Type Department Care Team (Latest Contact Info) Description 10/24/2020 Transcribe Orders Virtual Department [address] [place] [address] Jennifer Bhagat MD [address] [place] [address] [email or web address] Cigarette nicotine dependence without complication (Primary Dx) Social History Tobacco Use Types Packs/Day Years Used Date Smoking Tobacco: Never Assessed Comments Unknown Sex and Gender Information Value Date Recorded Sex Assigned at Not on file Legal Sex Female 1:40 PM EDT Gender Identity Not on file Sexual Orientation Not on file documented as of this encounter Plan of Treatment Not on file documented as of this encounter Visit Diagnoses Diagnosis Cigarette nicotine dependence without complication- Primary documented in this encounter Additional Health Concerns Infection Onset Date Last Indicated Resolved Time CoV-Risk 10/02/2022 10/02/2022 10/03/2022 12:3 6 PM EDT documented as of this encounter Care Teams Belt Cleaner Relationship Specialty Start Date End Date Bradford Bales PA [address] [place] [address] PCP - General Unknown Provider Specialty 12/26/20 1 Jennifer Bhagat MD [address] [place] [address] [email or web address] PCP - General Family Medicine 02/10/21 10/28/22 Jolynn Jasmine NP [address] [place] [address] PCP - General Nurse Practitioner 10/29/22 documented as of this encounter Additional Source Comments The information contained in this document represents components of the legal health record. It is not the complete legal health record.[facility]
--- OUTSIDE RECORDS SUMMARY | 2025-01-04 13:40 | XMS_ITS | Encounter Summary ---
Author Organization [facility] Address [address] [place] [address] Care Team Providers Care Home Care Administrator Name Role Phone Katherine Catherine Primary Care Provider John Ayala MD Primary Care Provide r Unavailable Jennifer Bhagat MD Primary Care Provider Unavailabl e [facility], Pcp Primary Care Provider Unavailabl e Encounter Details Date Type Department Care Team Description 06/14/2018 Release of Information Medical Records [address] [place] [id number] Abstract, Provider Social History Tobacco Use Types [...] on filedocumented in this encounter Care Teams Home Care Administrator Relationship Specialty Start Date End Date Katherine Catherine PCP - General Internal Medicine 04/20/18 01/02/19 John Diamond MD PCP - General Internal Medicine 01/03/19 Jennifer Bhagat MD PCP - General Anesthesiology 10/31/20 10/31/20 [facility], Pcp PCP - General Internal Medicine 03/21/21 documented as of this encounter
--- OUTSIDE RECORDS SUMMARY | 2025-01-04 13:40 | XMS_ITS | Encounter Summary ---
Author Organization [facility] Address [address] [place] [address] Care Team Providers Care Head Screen Worker Name Role Phone John Diamond MD Primary Care Provide r Unavailable Jennifer Bhagat MD Primary Care Provider Unavailabl e [facility], Pcp Primary Care Provider Unavailabl e Reason for Visit * Reason Comments E-prescribe Rx Request Encounter Details Date Type Department Care Team Description 04/21/2019 Refill Adult Medicine [address] [address] Rose Marmolejo MD E-prescribe Rx Request Social [...] it. She can continue with 1000 units [id number] vitamin D. * Telephone Encounter - Devika [...] N/A Patients current insurance carrier is: Payor: [facility] / Plan: [employer] [place]REF HMO $10 [place] / Product Type: MEDICARE RISK documented in this encounter Plan of Treatment Not on file documented as of this encounter Results * 25 HYDROXY INCLUDES FRACTIONS IF PERFORMED (05/18/2019 9:40 AM EST) VITAMIN D, 25-HYDROXY 35 30 - 80 ng/mL 05/18/2019 3:18 PM EST [facility] 05/18/2019 9:40 AM EST 05/18/2019 9:40 AM EST John Diamond MD LAB Performing Organization Address City/State/[facility] Co de Phone Number [facility] [place] documented in this encounter Visit Diagnoses Diagnosis Vitamin D deficiency- Primary Unspecified vitamin D deficiency documented in this encounter Care Teams Head Screen Worker Relationship Specialty Start Date End Date John Diamond MD PCP - General Internal Medicine 01/03/19 Jennifer Bhagat MD PCP - General Anesthesiology 10/31/20 10/31/20 [facility], Pcp PCP - General Internal Medicine 03/21/21 documented as of this encounter
--- OUTSIDE RECORDS SUMMARY | 2025-01-04 13:40 | XMS_ITS | Encounter Summary ---
Author Organization [facility] Address [address] [place] [address] Care Team Providers Care Bar Tacker Sewing Machine Name Role Phone Jhon Diamond MD Primary Care Provide r Unavailable Jennifer Bhagat MD Primary Care Provider Unavailabl e [facility], Pcp Primary Care Provider Unavailabl e Encounter Details Date Type Department Care Team Description 07/19/2019 [facility] Medical Records [address] [place] [address] Inga Barber PA Social History Tobacco Use [...] on filedocumented in this encounter Care Teams Bar Tacker Sewing Machine Relationship Specialty Start Date End Date John Diamond MD PCP - General Internal Medicine 01/03/19 Jennifer Bhagat MD PCP - General Anesthesiology 10/31/20 10/31/20 [facility], Pcp PCP - General Internal Medicine 03/21/21 documented as of this encounter
--- OUTSIDE RECORDS SUMMARY | 2025-01-04 13:40 | XMS_ITS | Encounter Summary ---
Author Organization [facility] Address [address] [place] [address] Care Team Providers Care Geology Teacher Name Role Phone John Diamond MD Primary Care Provide r Jennifer Winchester MD Primary Care Provider Unavailabl e [facility], Pcp Primary Care Provider Unavailabl e Reason for Visit * Reason Onset Date Comments medication problems 03/30/2019 Encounter Details Date Type Department Care Team Description 03/30/2019 Telephone Adult Medicine - [address] [address] Rose Marmolejo MD medication problems Social History [...] EST Who is calling? A pharmacist: Pharmacy: [facility] Pharmacist Name: Pharmacy Name of the medication [...] on filedocumented in this encounter Care Teams Geology Teacher Relationship Specialty Start Date End Date John Diamond MD PCP - General Internal Medicine 01/03/19 Jennifer Bhagat MD PCP - General Anesthesiology 10/31/20 10/31/20 [facility], Pcp PCP - General Internal Medicine 03/21/21 documented as of this encounter
--- OUTSIDE RECORDS SUMMARY | 2025-01-04 13:40 | XMS_ITS | Encounter Summary ---
Author [facility] Address [address] [place] [address] Care Team Providers Care Ornamental Metal Worker Name Role Phone John Diamond MD Primary Care Provide r Unavailable Jennifer Bhagat MD Primary Care Provider Unavailabl e [facility], Pcp Primary Care Provider Unavailabl e Reason for Visit * Reason Comments E-prescribe Rx Request Encounter Details Date Type Department Care Team Description 07/16/2020 Refill Adult Medicine [address] [address] John Diamond MD E-prescribe Rx Request Social [...] / [place] / Product Type: MEDICARE [id number] documented in this encounter Plan of Treatment Not on file documented as of this encounter Visit Diagnoses Not on filedocumented in this encounter Care Teams Ornamental Metal Worker Relationship Specialty Start Date End Date John Diamond MD PCP - General Internal Medicine 01/03/19 Jennifer Bhagat MD PCP - General Anesthesiology 10/31/20 10/31/20 [facility], [place] PCP - General Internal Medicine 03/21/21 documented as of this encounter
[2025-01-04 13:42] LABS: Imm Gran Abs Auto 0.53 X10*3/uL (0.00-0.03); Imm Gran Pct Auto 1.8 % (0.0-0.4); Lymphocytes Absolute Auto 1.2 X10*3/uL (1.2-4.9); MANUAL DIFF FLAG SCAN; Mean Corpuscular HGB Conc 29.5 g/dl (31.0-35.0); Mean Corpuscular Hemoglobin 19.4 pg (27.0-33.0); Mean Corpuscular Volume 65.8 fL (80.0-98.0); NRBC Abs Auto 0.050 X10*3/uL (0.0-0.012); NRBC Pct Auto 0.2 /100WBC (0.0-0.2); Platelet Count 778 X10*3/uL (160-400); Red Blood Count 2.37 X10*6/uL (4.20-5.50); SCAN SMEAR FLAG 1
[2025-01-04 13:43] LABS: INTERNATIONAL NORM RATIO 1.3 (0.9-1.1); Prothrombin Time 14.6 SEC (10.9-12.4)
[2025-01-04 13:45] LABS: Partial Thromboplastin Time 29.3 SEC (26.7-34.1)
[2025-01-04 13:50] LABS: White Blood Count 30.1 X10*3/uL (4.8-10.8)
[2025-01-04 13:51] LABS: COVID-19 Test Negative (Negative); Hematocrit 15.6 % (37.0-47.0); Hemoglobin 4.6 g/dl (12.0-16.0); IDNOW Serial# 55D5AD1C
[2025-01-04 14:08] LABS: B Type Natriuretic Peptide 576 pg/mL (<100)
[2025-01-04 14:09] LABS: Alanine Aminotransferase 7 U/L (0-31); Albumin Level 2.7 g/dL (3.5-5.0); Alkaline Phosphatase 67 U/L (39-117); Anion Gap 13 (12-20); Aspartate Amino Transferase 21 U/L (5-31); Blood Urea Nitrogen 15 mg/dL (9-16); Calcium 7.8 mg/dL (8.4-10.2); Carbon Dioxide 20 mmol/L (22-29); Chloride 105 mmol/L (96-108); Creatinine Clr Calc Pharmacy 44.7; Estimated Glomerular Filt Rate > 60; Magnesium 1.9 mg/dL (1.6-2.6); Potassium 3.7 mmol/L (3.3-5.1); Sodium 134 mmol/L (135-145); Total Protein 6.0 g/dL (6.5-8.0)
--- NOTE | 2025-01-04 14:15 | PC.NURSE ---
blood cultures/lactic rf technician was finally able to obtain blood cultures as patient was a difficult stick, as previously noted this patient had been stuck multiple times in attempts to obtain labs. provider was aware and was going to do another IV US guided to obtain if needed. Pt now has the BC drawn- BC are not showing in the lab to scan off as it seems phlebotomy somehow had them taken off- lab is aware we sent them to the lab with patient stickers due to this issue.
--- NOTE | 2025-01-04 14:24 | P.HPHOSP_ITS ---
History of Present Illness Date of Service: 01/04/25 Chief Complaint: Dyspnea This has a 79-year-old female with pertinent history of duodenal AVMs, rheumatoid arthritis, pseudogout, hypertension, iron-deficiency anemia, COPD not on home oxygen who was brought to the emergency department for evaluation of dyspnea. Patient is a poor historian. She states she has not been feeling well for the last 1-2 weeks. Unable to specify details. Denies abdominal pain. No hematemesis, melena, or hematochezia that she knows of. EMS was called by neighbors as apparently she has been declining recently. Patient's feet were covered in feces. Patient does have a dyspnea which has been worsening over the last 1 week. Minimal cough. Unable to obtain complete review of systems due to patient being a poor historian. In the emergency department, hemoglobin found to be 4.6 and WBC 30. Imaging with cardiomegaly and moderate sized pericardial effusion. Also with pleural effusions and mild interstitial pulmonary edema. BNP 576. 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 Surgical History S/P appendectomy H/O parathyroidectomy Status post hip surgery Social History Household Members: None Housing: Apartment Are you a primary assurance services manager health care to a significant other at home: No Do you presently have visiting nurse or other home services: No Alcohol intake: never Comment: Patient at times refusing bed alarm Patient Tobacco Use Status: Current everyday Tobacco user Tobacco use type: Cigarette Cigarette Packs Per Day: 0.5 Cigarettes Per Day: 10.0 Years Smoked: 55 Smoked in Last 30 Days: Yes e-Cigarette/Vaping Use: Currently Using Second Hand Smoke Exposure: No Use of substances other than those prescribed or required for medical reasons: No Advance Directives: Yes Advance Directives on File: Yes Advance Directives Date on File: 09/10/23 Do you have a plan to hurt others: No Plan service: No Current occupational status: retired 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 Current occupational exposures/hazards: No Cognitive needs: No Hearing needs: No Vision needs: Yes Meds Allergies Allergy/AdvReac Type Severity Reaction Status Date / Time oxycodone (From OxyContin) Allergy Mild Hives Verified 01/04/25 12:23 [place] Allergy Mild Hives & Uncoded 09/19/24 11:13 Swollen legs Home Medications ?Medication ?Instructions ?Recorded ?Confirmed ?Last Taken ?Type omeprazole 20 mg capsule,delayed 20 mg PO DAILY@0630 0 09/19/24 09/19/24 09/19/24 History release amlodipine 5 mg tablet 5 mg PO DAILY 01/04/2501/04 Unknown History Physical Exam 2 Vital Signs and Narrative: Vital Signs: Last Vital Signs Temp 98.8 F 01/04/25 12:19 Pulse 85 01/04/25 13:32 Resp 16 01/04/25 13:32 BP 140/61 H 01/04/25 12:19 Pulse Ox 95 01/04/25 12:19 O2 Del Method Room Air 01/04/25 12:19 BMI result Body Mass Index 18.6 Const: Other: Elderly female lying in bed in no distress Neck supple, pallor + Irregularly irregular, S1-S2 heard Reduced breath sounds Abdomen soft nontender, no guarding, no rigidity Patient is awake, alert and oriented x2 ; no focal motor deficit Psych: Normal mood Results Labs 01/04/25 13:30 01/04/25 13:30 Labs: Laboratory Results - last 24 hr 01/04/25 01/04/25 13:30 14:11 MCV 65.8 L MCH 19.4 L MCHC 29.5 L RDW 20.9 H Plt Count 778 H D MPV 9.0 L Immature Gran % (Auto) 1.8 H Neut % (Auto) 87.4 H Lymph % (Auto) 4.0 L Callahan % (Auto) 6.5 Eos % (Auto) 0.1 Baso % (Auto) 0.2 Lymph # (Auto) 1.2 Callahan # (Auto) 2.0 H Eos # (Auto) 0.0 Baso # (Auto) 0.1 Abs Immat Gran (auto) 0.53 H Absolute Neuts (auto) 26.4 H Absolute Nucleated RBC 0.050 H Nucleated RBC % (auto) 0.2 Smear Tech's Comments VERIFIED PT 14.6 H D INR 1.3 H APTT 29.3 Anion Gap 13 Estim Creat Clear Calc 44.7 Estimated GFR > 60 Random Glucose 99 Calcium 7.8 L D Phosphorus 4.0 Magnesium 1.9 Total Bilirubin 0.5 AST 21 ALT 7 Alkaline Phosphatase 67 B-Natriuretic Peptide 576 H Total Protein 6.0 L Albumin 2.7 L COVID-19 ([facility]IMA) Negative COVID-19 Clin Com See Note Crossmatch ([facility]G) See Detail Imaging Radiologist's Impressions: Impressions Chest X-Ray 01/04/25 11:35 IMPRESSION: COPD. Dual-lead pacer device in good position. Increased markings in the retrocardiac region suggestive of possible pneumonia. Electronically signed by: Johnny Lockett MD 01/04/2025 12:58 PM EDT RP Assessment and Plan (1) Severe anemia: Status: Acute Plan This has a 79-year-old female with pertinent history of duodenal AVMs, rheumatoid arthritis, pseudogout, hypertension, iron-deficiency anemia, COPD not on home oxygen who was brought to the emergency department for evaluation of dyspnea. #. Acute, severe symptomatic on chronic iron-deficiency anemia: Will admit patient with cardiac monitoring. 3 unit PRBC ordered in the ER. Closely monitor H&H. Consulted Gastroenterology for concerns of GI bleed. #. Acute decompensated congestive heart failure, ?high output: IV diuresis between PRBC units. Appreciate Cardiology. Echocardiogram pending #. Hdbumfyr-qf-gqiyx pericardial effusion: Obtaining echo and consulting Cardiology. Currently hemodynamically stable. No physiologic tamponade on bedside echo as per ER provider #. AFib with RVR, new onset: As per ER provider, patient went into AFib with RVR while in the ER and was given 10mg IV diltiazem. Defer anticoagulation due to anemia. TSH okay. #. Leukocytosis, ?leukemoid reaction. Given empiric ceftriaxone in the ER. Blood cultures pending. Will obtain procalcitonin. No fever #. Rheumatoid arthritis: Continue anti-inflammatories #. COPD: No exacerbation during admission. Med rec pending DVT prophylaxis: Mechanical Full code. Discussed with patient at bedside Admit as inpatient and will require two night minimum hospital stay for hemodynamic monitoring, monitoring of H&H (as above), which is not possible in a lesser acute setting. Quality Stroke Does the patient have a stroke diagnosis?: No VTE Prior VTE?: No VTE Risk Level:: Medical - moderate - high VTE Device Contraindication: N/A - Device Ordered VTE Drug Contraindication: Treatment Not Indicated
[2025-01-04 14:26] LABS: Thyroid Stimulating Hormone 1.74 uIU/mL (0.32-4.0)
[2025-01-04 14:38] LABS: Reticulocytes Absolute 0.073 X10*6/uL (0.026-0.095)
[2025-01-04 15:03] LABS: Iron 7 mcg/dL (30-160); Percent Iron Saturation 3 % (15-50); Total Iron Binding Capacity 258 mcg/dL (228-428); Unsaturated Iron Binding 251 ug/dL
--- NOTE | 2025-01-04 15:27 | ECG_ITS ---
Test Reason : TACHYCARDIA Blood Pressure : */* mmHG Vent. Rate : 176 BPM Atrial Rate : * BPM P-R Int : * ms QRS Dur : 80 ms QT Int : 238 ms P-R-T Axes : * 58 224 degrees QTcB Int : 407 ms Atrial fibrillation with rapid ventricular response with premature ventricular or aberrantly conducted complexes Nonspecific ST and T wave abnormality Abnormal ECG When compared with ECG of 04-Jan-2025 12:36, Atrial fibrillation has replaced Sinus rhythm Vent. rate has increased by [address] and T wave abnormality Present Referred By: Andre Romero Electronically Signed By: SHARMIN ROJAS
--- NOTE | 2025-01-04 15:34 | PC.NURSE ---
this nurse noticed patients HR was in the 170s, provider was notified, vagal maneuvers were attempted with the patient without success, IVP diltiazem was given, pts hr has lowered to 150s-160s
--- NOTE | 2025-01-04 15:39 | PC.NURSE ---
pt desat to 88, 2L NC placed, pt O2 sat increased to mid 90s, basket person pt continues to have rapid HR, will notify provider
[2025-01-04 16:41] LABS: Procalcitonin 1.23 ng/mL
[2025-01-04] MEDS: 0.9 % Sodium Chloride Flush 3 ML SYRINGE IVFLUSH ×2 (18:53→22:41)
--- NOTE | 2025-01-04 19:03 | PHA.MEDREC ---
Addendum entered by Reynaldo Hirsch PharmD 01/04/25 19:08: reviewed Original Note: Pharmacy Consult ? Medication Reconciliation Pharmacy has completed the medication reconciliation. Spoke with pt and she was able to confirm what she is taking for at home medications. Pt uses Ropinirole as needed for restless leg(s).
--- NOTE | 2025-01-04 21:59 | MHC.PIE ---
p; pt arrived from ed with blood running at 75ml/hr since 1822 with blood still remaining >320 ml out of 350 ml bag. ? due to pt unable to keep arm straight? i; dr nguyen notified i; nursing sup notified e; iv site wrapped with board. blood infusion increased. will cont to monitor
[2025-01-04] MEDS: Furosemide 40 MG/4 ML VIAL IVPUSH (22:24)
--- NOTE | 2025-01-04 22:25 | MHC.PIE ---
p; pt c/o restless legs asking for medicine, pt also just finished 1out of 3 bag rbc, ? iv lasix in med list from 1600, not given in ed? note; pt has prn ropinirole at home. i; dr rivas notified, ok and given lasix e; lasix given prior to next blood. will cont to monitor
[2025-01-05] VITALS (9 sets, daily range): BP systolic 141–163; BP diastolic 60–79; PULSE 64–85; RESP 16–20; TEMP 36–37; O2SAT 96–98
--- NOTE | 2025-01-05 00:33 | MHC.PIE ---
01/04 9884 p; elastic attacher overlock reports pt in trigeminy, bigeminy, pvc and vtach. note; pt denies any chest pain or dizzyness at this time i; dr rivas notified. ekg now e; ekg taken and pic sent to , will cont to monitor
[2025-01-05 07:00] LABS: Hematocrit 30.2 % (37.0-47.0); Hemoglobin 9.5 g/dl (12.0-16.0); Imm Gran Abs Auto 0.46 X10*3/uL (0.00-0.03); Imm Gran Pct Auto 1.8 % (0.0-0.4); Lymphocytes Absolute Auto 0.7 X10*3/uL (1.2-4.9); MANUAL DIFF FLAG SCAN; Mean Corpuscular HGB Conc 31.5 g/dl (31.0-35.0); Mean Corpuscular Hemoglobin 22.5 pg (27.0-33.0); Mean Corpuscular Volume 71.4 fL (80.0-98.0); NRBC Abs Auto 0.070 X10*3/uL (0.0-0.012); NRBC Pct Auto 0.3 /100WBC (0.0-0.2); Platelet Count 704 X10*3/uL (160-400); Red Blood Count 4.23 X10*6/uL (4.20-5.50); SCAN SMEAR FLAG 1; White Blood Count 26.1 X10*3/uL (4.8-10.8)
--- NOTE | 2025-01-05 07:00 | CA_ITS ---
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 The calculated ejection fraction is 64% by biplane method. - Mybfc-za-tnthktos pericardial effusion, most prominent posterior to left ventricle. No evidence of cardiac tamponade. Findings Left Ventricle Normal left ventricular cavity size. There is mildly increased left ventricular wall thickness. The left ventricular systolic function is normal. The calculated ejection fraction is 64% by biplane method. Venous The inferior vena cava is normal in size and collapses greater than 50% with inspiration. Pericardium/Pleural Bwryz-eq-eayzetfh pericardial effusion, most prominent posterior to left ventricle. No evidence of cardiac tamponade. Prior Study Comparison Changes noted compared to prior study dated: 09/20/2024. Pericardial effusion present. Measurements 2D Linear Measurements IVSd: 1.07 0.6-0.9/0.6-1.0 cm LVIDd: 4.55 3.9-5.3/4.2-5.9 cm LVIDd Index: 3.12 2.4-3.2/2.2-3.1 cm/m2 LVIDs: 2.81 2.0-3.6 cm LVPWd: 1.06 0.7-1.1 cm LA Diam: 4.00 2.7-3.8/3.0-4.0 cm LAIDs Index: 2.74 1.5-2.3 cm/m2 LV Mass: 212.04 67-162/88-224 g LV Mass Index: 145.23 43-95/49-115 g/m2 2D Systolic Function EF 4C: 60.50 >55% EF 2C: 70.70 >55% EF BiP: 64.00 >55% Tricuspid Valve RA Press: 3.00 Updated in Other Vendor System with Status of Final Torres Gibbons MD electronically signed on 01/05/2025 10:53:06 AM with status of Final
[2025-01-05 07:10] LABS: Anion Gap 17 (12-20); Blood Urea Nitrogen 18 mg/dL (9-16); Calcium 7.6 mg/dL (8.4-10.2); Carbon Dioxide 19 mmol/L (22-29); Chloride 106 mmol/L (96-108); Creatinine Clr Calc Pharmacy 52.2; Estimated Glomerular Filt Rate > 60; Potassium 4.6 mmol/L (3.3-5.1); Sodium 137 mmol/L (135-145)
--- NOTE | 2025-01-05 07:18 | P.PNIM_ITS ---
Subjective Subjective Date of Service: 01/05/25 Interval History: f/u on acute blood loss anemia new afib with rvr No shortness a breath, chest pain dizziness this morning Physical Exam 2 Exam: Exam: General: AO X 3, no acute distress Resp: CTA bilateral CVS: S1,S2,RRR, no leg edema GI: +BS, NT, no distention Skin: No rash Neuro: motor grossly intact Psych: appropriate affect Vital Signs: Vital Signs: Last Vital Signs Temp 97.2 F 01/05/25 05:49 Pulse 64 01/05/25 05:49 Resp 16 01/05/25 05:49 BP 149/69 H 01/05/25 05:49 Pulse Ox 98 01/05/25 03:22 O2 Del Method Nasal Cannula 01/05/25 03:22 O2 Flow Rate 2 01/05/25 03:22 BMI result Body Mass Index 20.7 Objective Data Active Medications Acetaminophen (Acetaminophen 325 Mg Tablet) 650 mg PO Q6H PRN PRN Reason: Pain, Mild 1-3,fever,headache Calcium Carbonate (Calcium Carbonate 750 Mg Tab.Chew) 750 mg PO Q4H PRN PRN Reason: Heartburn Furosemide (Furosemide 40 Mg/4 Ml Vial) 40 mg IVPUSH DAILY [facility]; Protocol Last Admin: 01/04/25 22:24 Dose: 40 mg Documented By: CARY Comments: not given in ed? given now per Magnesium Hydroxide (Milk Of Magnesia 30 Ml Oral.Susp) 30 ml PO DAILY PRN PRN Reason: Constipation Melatonin (Melatonin 3 Mg Tablet) 6 mg PO BEDTIME PRN PRN Reason: Insomnia Ondansetron HCl (Ondansetron Hcl 4 Mg/2 Ml Vial) 4 mg IVPUSH Q8H PRN PRN Reason: Nausea and Vomiting Ropinirole HCl (Ropinirole Hcl 2 Mg Tablet) 2 mg PO TID PRN PRN Reason: Restless Leg(S) Last Admin: 01/04/25 22:32 Dose: 2 mg Documented By: CARY Sodium Chloride (0.9 % Sodium Chloride Flush 3 Ml Syringe) 3 ml IVFLUSH QSHIFT [facility] Last Admin: 01/04/25 22:41 Dose: 3 ml Documented By: CARY Labs 01/05/25 05:58 01/05/25 05:58 Labs: Laboratory Results - last 24 hr 01/04/25 01/04/25 01/04/25 13:30 14:11 16:02 MCV 65.8 L MCH 19.4 L MCHC 29.5 L RDW 20.9 H Plt Count 778 H D MPV 9.0 L Immature Gran % (Auto) 1.8 H Neut % (Auto) 87.4 H Lymph % (Auto) 4.0 L [place] % (Auto) 6.5 Eos % (Auto) 0.1 Baso % (Auto) 0.2 Lymph # (Auto) 1.2 [place] # (Auto) 2.0 H Eos # (Auto) 0.0 Baso # (Auto) 0.1 Abs Immat Gran (auto) 0.53 H Absolute Neuts (auto) 26.4 H Absolute Nucleated RBC 0.050 H Nucleated RBC % (auto) 0.2 Smear Tech's Comments VERIFIED Absolute Retic 0.073 Percent Retic 3.1 H Immature Retic Fraction 33.0 H Retic Hgb Equivalent 15.2 L PT 14.6 H D INR 1.3 H APTT 29.3 Anion Gap 13 Estim Creat Clear Calc 44.7 Estimated GFR > 60 Random Glucose 99 Lactic Acid 1.5 Calcium 7.8 L D Phosphorus 4.0 Magnesium 1.9 Iron 7 L TIBC 258 % Saturation 3 L Unsat Iron Binding 251 Total Bilirubin 0.5 AST 21 ALT 7 Alkaline Phosphatase 67 Lactate Dehydrogenase 310 H B-Natriuretic Peptide 576 H Total Protein 6.0 L Albumin 2.7 L Procalcitonin 1.23 TSH 1.74 COVID-19 ([facility]) Negative COVID-19 Clin Com See Note Blood Type A Positive Antibody Screen POSITIVE Antibody Identification Inconclusive Antigen Identification C Antigen - POSITIVE Crossmatch (AHG) See Detail 01/05/25 05:58 MCV 71.4 L D MCH 22.5 L MCHC 31.5 RDW 21.4 H Plt Count 704 H MPV 9.1 L Immature Gran % (Auto) Neut % (Auto) Lymph % (Auto) [place] % (Auto) Eos % (Auto) Baso % (Auto) Lymph # (Auto) [place] # (Auto) Eos # (Auto) Baso # (Auto) Abs Immat Gran (auto) Absolute Neuts (auto) Absolute Nucleated RBC Nucleated RBC % (auto) Smear Tech's Comments Absolute Retic Percent Retic Immature Retic Fraction Retic Hgb Equivalent PT INR APTT Anion Gap 17 Estim Creat Clear Calc 52.2 Estimated GFR > 60 Random Glucose 131 H Lactic Acid Calcium 7.6 L Phosphorus Magnesium Iron TIBC % Saturation Unsat Iron Binding Total Bilirubin AST ALT Alkaline Phosphatase Lactate Dehydrogenase B-Natriuretic Peptide Total Protein Albumin Procalcitonin TSH COVID-19 ([facility]) COVID-19 Clin Com Blood Type Antibody Screen Antibody Identification Antigen Identification Crossmatch (AHG) Assessment and Plan (1) Anemia: Status: Acute (2) Iron deficiency anemia: Status: Acute (3) Afib: Status: Acute Plan 79-year-old female with pertinent history of duodenal AVMs, rheumatoid arthritis, pseudogout, hypertension, iron-deficiency anemia, COPD not on home oxygen who was brought to the emergency department for evaluation of dyspnea. Acute, severe symptomatic anemia on chronic iron-deficiency anemia transfused 3 units of rbcs Monitor H/H check ocult blood For EGD today clinically stable for EGD, last echo from 09/2024 reviewed EF 60%, can proceed with EGD Acute HFpEF, suspect high output heart failure from anemia. Presently appear compensated IV diuresis between PRBC units Cardiololgy consult Echo Mild metabolic acidosis, appear chronic ? RTA [id number] pericardial effusion, No physiologic tamponade on bedside echo as per ER provider, Currently hemodynamically stable. echo to better assess cardiology eval AFib with RVR, new onset, now rate control HR in 60, possibly precipitated by anemia nl TSH hold anticoagulation in light of severe anemia needing transfusion metoprolol as needed to control HR Leukocytosis, ?leukemoid reaction. Given empiric ceftriaxone in the ER. Blood cultures pending. No fever, pro calcitonin 1.23 Rheumatoid arthritis: Continue anti-inflammatories COPD: No exacerbation DVT prophylaxis: Mechanical Full code. Discussed with patient at bedside Quality Stroke Does the patient have a stroke diagnosis?: No VTE Prior VTE?: No VTE Risk Level:: Medical - moderate - high VTE Device Contraindication: N/A - Device Ordered VTE Drug Contraindication: Treatment Not Indicated
--- NOTE | 2025-01-05 07:50 | P.CNGI_ITS ---
History of Present Illness Data of Consult Service Date: 01/05/25 Requesting physician: Mary Seaman Primary Care Provider: Unknown Physician HPI Reason for consult: GI bleed This is a 79-year-old female with past medical history of sick sinus syndrome status post dual-chamber pacemaker placement September 2024, COPD, who presented to the hospital for chest pain and shortness of breath and was found to have severe anemia. History was obtained from the patient and the chart. She had been getting progressively short of breath, and unable to stand. Neighbors called EMS for her, she was found with feces covering her feet. She did not have any abdominal pain, nausea, vomiting, diarrhea. No black stools or maroon stools. She did have retrosternal chest pain with burning for a few hours before she came to the emergency room. In the emergency room, she was also noted to be in new onset atrial fibrillation with RVR which was broken with [address] chest showed [id number] pericardial effusion and moderate pleural effusions bilaterally. Patient currently reports persistent shortness of breath, and has visibly tachypneic on exam. She also endorses some chest pressure when attempted to lay flat. In terms of anemia, she has had chronic microcytic anemia since at least 2021 this is in the setting of small-bowel AVMs. Her previously known baseline hemoglobin is 9, she presented with hemoglobin of 4.6. Received 3 units blood transfusion overnight. Hemoglobin this morning is 9.5. Most recent EGD August 2024: GE junction ulcer, numerous AVM in the distal duodenum and proximal jejunum status post APC. Review of Systems 2 Review of Systems: Yes all other systems are reviewed and are negative [facility] Past Medical History Medical History 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 Surgical History Surgical History S/P appendectomy H/O parathyroidectomy Status post hip surgery Social History Social History Household Members: None Housing: Apartment Are you a primary direct care worker to a significant other at home: No Do you presently have visiting nurse or other home services: No Alcohol intake: never Comment: Patient at times refusing bed alarm Patient Tobacco Use Status: Current everyday Tobacco user Tobacco use type: Cigarette Cigarette Packs Per Day: 0.5 Cigarettes Per Day: 10.0 Years Smoked: 59 e-Cigarette/Vaping Use: Currently Using Second Hand Smoke Exposure: No Advance Directives Date on File: 09/10/23 service: No Current occupational status: retired 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 Current occupational exposures/hazards: No Cognitive needs: No Hearing needs: No Vision needs: Yes Meds Allergies Allergy/AdvReac Type Severity Reaction Status Date / Time oxycodone (From OxyContin) Allergy Mild Hives Verified 01/04/25 12:23 [place] Allergy Mild Hives & Uncoded 09/19/24 11:13 Swollen legs Active Medications: Current Medications Acetaminophen (Acetaminophen 325 Mg Tablet) 650 mg PO Q6H PRN PRN Reason: Pain, Mild 1-3,fever,headache Albuterol Sulfate (Albuterol Sulfate 90 Mcg 8 Gm Inhaler) 2 puff INHALE Q4H PRN PRN Reason: shortness of breath or wheezing Amlodipine Besylate (Amlodipine Besylate 5 Mg Tablet) 5 mg PO DAILY [facility]; Protocol Calcium Carbonate (Calcium Carbonate 750 Mg Tab.Chew) 750 mg PO Q4H PRN PRN Reason: Heartburn Cyanocobalamin (Cyanocobalamin (Vitamin B-12) 1,000 Mcg Tablet) 1,000 mcg PO DAILY [facility] Ferrous Sulfate (Ferrous Sulfate 324 Mg Tablet.) 324 mg PO BID [facility] Folic Acid (Folic Acid 1 Mg Tablet) 1 mg PO DAILY [facility] Furosemide (Furosemide 40 Mg/4 Ml Vial) 40 mg IVPUSH DAILY [facility]; Protocol Last Admin: 01/04/25 22:24 Dose: 40 mg Magnesium Hydroxide (Milk Of Magnesia 30 Ml Oral.Susp) 30 ml PO DAILY PRN PRN Reason: Constipation Melatonin (Melatonin 3 Mg Tablet) 6 mg PO BEDTIME PRN PRN Reason: Insomnia Omeprazole (Omeprazole 20 Mg Capsule.) 20 mg PO DAILY@0630 [facility] Ondansetron HCl (Ondansetron Hcl 4 Mg/2 Ml Vial) 4 mg IVPUSH Q8H PRN PRN Reason: Nausea and Vomiting Pravastatin Sodium (Pravastatin Sodium 40 Mg Tablet) 40 mg PO DAILY [facility] Ropinirole HCl (Ropinirole Hcl 2 Mg Tablet) 2 mg PO TID PRN PRN Reason: Restless Leg(S) Last Admin: 01/04/25 22:32 Dose: 2 mg Sodium Chloride (0.9 % Sodium Chloride Flush 3 Ml Syringe) 3 ml IVFLUSH QSHIFT [facility] Last Admin: 01/04/25 22:41 Dose: 3 ml Vitamin D (Cholecalciferol (Vitamin D3) 25 Mcg Tablet) 125 mcg PO DAILY [facility] Home Medications ?Medication ?Instructions ?Recorded ?Confirmed ?Last Taken ?Type omeprazole 20 mg capsule,delayed 20 mg PO DAILY@0630 0 09/19/24 01/04/25 01/04/25 History release amlodipine 5 mg tablet 5 mg PO DAILY 01/04/2501/0401/04/25 History lidocaine 4 % topical patch 1 patch transdermal DAILY PRN Pain 01/04/25 01/04/25 Unknown History (Lidocaine Pain Relief) ropinirole 1 mg tablet 2 mg PO TID PRN Restless Leg (S) 01/04/25 01/04/25 01/04/25 History Physical Exam 2 Exam: Exam: Frail elderly female Under nourished Tachypneic, person lifts, unable to speak in full sentences Abdomen soft, mildly distended, nontender No lower extremity edema Vital Signs: Vital Signs: Last Vital Signs Temp 97.1 F 01/05/25 07:33 Pulse 74 01/05/25 07:33 Resp 16 01/05/25 07:33 BP 156/70 H 01/05/25 07:33 Pulse Ox 96 01/05/25 07:33 O2 Del Method Nasal Cannula 01/05/25 07:33 O2 Flow Rate 2 01/05/25 07:33 BMI result Body Mass Index 20.7 Results Labs 01/09/25 08:53 01/09/25 08:53 Labs: Short CBC 01/04/25 01/05/25 Range/Units 13:30 05:58 WBC 30.1 H* 26.1 H (4.8-10.8) X10*3/uL Hgb 4.6 L* D 9.5 L D (12.0-16.0) g/dl Hct 15.6 L* D 30.2 L D (37.0-47.0) % Plt Count 778 H D 704 H (160-400) X10*3/uL BMP 01/04/25 01/05/25 13:30 05:58 Sodium 134 L 137 Potassium 3.7 4.6 D Chloride 105 106 Carbon Dioxide 20 L 19 L BUN 15 18 H Creatinine 0.73 0.67 Calcium 7.8 L D 7.6 L Liver Function 01/04/25 Range/Units 13:30 Total Bilirubin 0.5 (0.0-1.0) mg/dL AST 21 (5-31) U/L ALT 7 (0-31) U/L Alkaline Phosphatase 67 (39-117) U/L Albumin 2.7 L (3.5-5.0) g/dL Assessment and Plan (1) Severe anemia: Status: Acute (2) Iron deficiency anemia: Qualifiers: Iron deficiency anemia type: unspecified iron deficiency Qualified Code(s): D50.9 - Iron deficiency anemia, unspecified Status: Acute (3) 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 Course complicated by new onset cardiac issues including AFib with RVR and pericardial effusion. Patient continues to be short of breath on exam today. Awaiting cardiology evaluation and echocardiogram. Plan: - initially plan was to CT enterography today, however given clinical course, we will hold off and await cardiology evaluation - please keep NPO for now - IV ppi, given previously known history of esophagitis - monitor CBC, transfuse for hemoglobin less than 7 Thank you for allowing me to participate in her care. Please do not hesitate to reach out for any questions or concerns. Procedures Date of Service Date of Service: 01/09/25
--- NOTE | 2025-01-05 09:34 | P.CONAN_ITS ---
Documented by User: Marisel Stapleton NP 01/05/25 15:13 HPI - Anesthesia Eval Consult details Narrative: 79 yr old female for upper endoscopy, push enteroscopy. AFib with RVR, new onset: reverted back to sinus rhythm, not on anticoagulation due to anemia. Pericardial effusion on chest/CT: cards saw pt 01/05/25, reviewed on echocardiogram and no more than moderate. No evidence of tamponade physiology. H/O sick sinus syndrome: s/p cardiac pacemaker 09/2024 with no follow up since then. COPD: on 2 liters O2 Severe anemia: Hgb was 4.6 -->9.5 01/05/25 PMFSH Active Problems Active Problems: All Active Problems (Updated 01/05/25 @ 08:45 by Andre Romero MD) Afib (Acute) Anemia (Acute) Pneumonia (Acute) Osteoarthritis of right knee (Acute) Right knee pain (Acute) Sinus node dysfunction (Acute) Acute electrocardiogram changes (Acute) Syncope (Acute) Annual physical exam (Acute) Upper gastrointestinal bleeding (Acute) Severe anemia (Acute) Iron deficiency anemia due to chronic blood loss (Acute) Pseudogout involving multiple joints (Acute) Wheezing (Acute) Laboratory tests ordered as part of a complete physical exam (CPE) (Acute) Smoking history (Acute) Microcytic hypochromic anemia (Acute) Abnormal lung sounds (Acute) Synovial cyst of popliteal space [Bray], right knee (Acute) Cough (Acute) Hyperlipidemia (Acute) Normal physical examination, routine (Acute) Iron deficiency anemia (Acute) Immunization counseling (Acute) Abnormal colonoscopy (Acute) Colon cancer screening (Acute) Nicotine dependence (Acute) Long-term use of hydroxychloroquine (Acute) Fatigue (Acute) Osteoporosis (Acute) 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 Family history of problems with anesthesia: No Surgical History Surgical History S/P appendectomy H/O parathyroidectomy Status post hip surgery History of Problems with Anesthesia: No Social History Social History Household Members: None Housing: Apartment Are you a primary health care administrator to a significant other at home: No Do you presently have visiting nurse or other home services: No Alcohol intake: never Comment: Patient at times refusing bed alarm Patient Tobacco Use Status: Current everyday Tobacco user Tobacco use type: Cigarette Cigarette Packs Per Day: 0.5 Cigarettes Per Day: 10.0 Years Smoked: 59 e-Cigarette/Vaping Use: Currently Using Second Hand Smoke Exposure: No Advance Directives Date on File: 09/10/23 service: No 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 Current occupational exposures/hazards: No Cognitive needs: No Hearing needs: No Vision needs: Yes Meds Allergies Allergy/AdvReac Type Severity Reaction Status Date / Time oxycodone (From OxyContin) Allergy Mild Hives Verified 01/04/25 12:23 [place] Allergy Mild Hives & Uncoded 09/19/24 11:13 Swollen legs Active Medications: Current Medications Acetaminophen (Acetaminophen 325 Mg Tablet) 650 mg PO Q6H PRN PRN Reason: Pain, Mild 1-3,fever,headache Albuterol Sulfate (Albuterol Sulfate 90 Mcg 8 Gm Inhaler) 2 puff INHALE Q4H PRN PRN Reason: shortness of breath or wheezing Amlodipine Besylate (Amlodipine Besylate 5 Mg Tablet) 5 mg PO DAILY GABRIELA; Protocol Calcium Carbonate (Calcium Carbonate 750 Mg Tab.Chew) 750 mg PO Q4H PRN PRN Reason: Heartburn Cyanocobalamin (Cyanocobalamin (Vitamin B-12) 1,000 Mcg Tablet) 1,000 mcg PO DAILY GABRIELA Ferrous Sulfate (Ferrous Sulfate 324 Mg Tablet.Dr) 324 mg PO BID GABRIELA Folic Acid (Folic Acid 1 Mg Tablet) 1 mg PO DAILY GABRIELA Furosemide (Furosemide 40 Mg/4 Ml Vial) 40 mg IVPUSH DAILY GABRIELA; Protocol Last Admin: 01/04/25 22:24 Dose: 40 mg Magnesium Hydroxide (Milk Of Magnesia 30 Ml Oral.Susp) 30 ml PO DAILY PRN PRN Reason: Constipation Melatonin (Melatonin 3 Mg Tablet) 6 mg PO BEDTIME PRN PRN Reason: Insomnia Omeprazole (Omeprazole 20 Mg Capsule.Dr) 20 mg PO DAILY@0630 [facility] Ondansetron HCl (Ondansetron Hcl 4 Mg/2 Ml Vial) 4 mg IVPUSH Q8H PRN PRN Reason: Nausea and Vomiting Pravastatin Sodium (Pravastatin Sodium 40 Mg Tablet) 40 mg PO DAILY [facility] Ropinirole HCl (Ropinirole Hcl 2 Mg Tablet) 2 mg PO TID PRN PRN Reason: Restless Leg(S) Last Admin: 01/04/25 22:32 Dose: 2 mg Sodium Chloride (0.9 % Sodium Chloride Flush 3 Ml Syringe) 3 ml IVFLUSH QSHIFT [facility] Last Admin: 01/04/25 22:41 Dose: 3 ml Vitamin D (Cholecalciferol (Vitamin D3) 25 Mcg Tablet) 125 mcg PO DAILY [facility] Home Medications ?Medication ?Instructions ?Recorded ?Confirmed ?Last Taken ?Type omeprazole 20 mg capsule,delayed 20 mg PO DAILY@0630 0 09/19/24 01/04/25 01/04/25 History release amlodipine 5 mg tablet 5 mg PO DAILY 01/04/2501/0401/04/25 History lidocaine 4 % topical patch 1 patch transdermal DAILY PRN Pain 01/04/25 01/04/25 Unknown History (Lidocaine Pain Relief) ropinirole 1 mg tablet 2 mg PO TID PRN Restless Leg (S) 01/04/25 01/04/25 01/04/25 History Exam Height,Weight and Vital Signs: Height 5 ft 1 in Weight 49.6 kg Last Vital Signs Temp 97.1 F 01/05/25 07:33 Pulse 74 01/05/25 07:33 Resp 16 01/05/25 07:33 BP 156/70 H 01/05/25 07:33 Pulse Ox 96 01/05/25 07:33 O2 Del Method Nasal Cannula 01/05/25 07:33 O2 Flow Rate 2 01/05/25 07:33 Pertinent Lab Results Pertinent Lab Results: Laboratory Tests 01/04/25 01/04/25 01/04/25 13:30 14:11 16:02 WBC 30.1 H* RBC 2.37 L D Hgb 4.6 L* D Hct 15.6 L* D MCV 65.8 L MCH 19.4 L MCHC 29.5 L RDW 20.9 H Plt Count 778 H D MPV 9.0 L Immature Gran % (Auto) 1.8 H Neut % (Auto) 87.4 H Lymph % (Auto) 4.0 L [place] % (Auto) 6.5 Eos % (Auto) 0.1 Baso % (Auto) 0.2 Lymph # (Auto) 1.2 [place] # (Auto) 2.0 H Eos # (Auto) 0.0 Baso # (Auto) 0.1 Abs Immat Gran (auto) 0.53 H Absolute Neuts (auto) 26.4 H Absolute Nucleated RBC 0.050 H Nucleated RBC % (auto) 0.2 Smear Tech's Comments VERIFIED Absolute Retic 0.073 Percent Retic 3.1 H Immature Retic Fraction 33.0 H Retic Hgb Equivalent 15.2 L PT 14.6 H D INR 1.3 H APTT 29.3 Sodium 134 L Potassium 3.7 Chloride 105 Carbon Dioxide 20 L Anion Gap 13 BUN 15 Creatinine 0.73 Estim Creat Clear Calc 44.7 Estimated GFR > 60 Random Glucose 99 Lactic Acid 1.5 Calcium 7.8 L D Phosphorus 4.0 Magnesium 1.9 Iron 7 L TIBC 258 % Saturation 3 L Unsat Iron Binding 251 Total Bilirubin 0.5 AST 21 ALT 7 Alkaline Phosphatase 67 Lactate Dehydrogenase 310 H B-Natriuretic Peptide 576 H Total Protein 6.0 L Albumin 2.7 L Procalcitonin 1.23 TSH 1.74 COVID-19 ([facility]IMA) Negative COVID-19 Clin Com See Note Blood Type A Positive Antibody Screen POSITIVE Antibody Identification Inconclusive Antigen Identification C Antigen - POSITIVE Crossmatch (AHG) See Detail 01/05/25 05:58 WBC 26.1 H RBC 4.23 D Hgb 9.5 L D Hct 30.2 L D MCV 71.4 L D MCH 22.5 L MCHC 31.5 RDW 21.4 H Plt Count 704 H MPV 9.1 L Immature Gran % (Auto) 1.8 H Neut % (Auto) 91.4 H Lymph % (Auto) 2.8 L [place] % (Auto) 3.8 Eos % (Auto) 0.0 Baso % (Auto) 0.2 Lymph # (Auto) 0.7 L [place] # (Auto) 1.0 Eos # (Auto) 0.0 Baso # (Auto) 0.1 Abs Immat Gran (auto) 0.46 H Absolute Neuts (auto) 23.9 H Absolute Nucleated RBC 0.070 H Nucleated RBC % (auto) 0.3 H Smear Tech's Comments VERIFIED Absolute Retic Percent Retic Immature Retic Fraction Retic Hgb Equivalent PT INR APTT Sodium 137 Potassium 4.6 D Chloride 106 Carbon Dioxide 19 L Anion Gap 17 BUN 18 H Creatinine 0.67 Estim Creat Clear Calc 52.2 Estimated GFR > 60 Random Glucose 131 H Lactic Acid Calcium 7.6 L Phosphorus Magnesium Iron TIBC % Saturation Unsat Iron Binding Total Bilirubin AST ALT Alkaline Phosphatase Lactate Dehydrogenase B-Natriuretic Peptide Total Protein Albumin Procalcitonin TSH COVID-19 ([facility]IMA) COVID-19 Clin Com Blood Type Antibody Screen Antibody Identification Antigen Identification Crossmatch (AHG) Narrative Narrative: EKG 01/04/25 Vent. Rate : 176 BPM Atrial Rate : * BPM P-R Int : * ms QRS Dur : 80 ms QT Int : 238 ms P-R-T Axes : * 58 224 degrees QTcB Int : 407 ms Atrial fibrillation with rapid ventricular response with premature ventricular or aberrantly conducted complexes ST & T wave abnormality, consider inferolateral ischemia Abnormal ECG When compared with ECG of 04-Jan-2025 12:36, Atrial fibrillation has replaced Sinus rhythm Vent. rate has increased by [address] no longer elevated in Inferior leads ST now depressed in Anterolateral leads T wave inversion now evident in Inferior leads T wave inversion now evident in Anterolateral leads ECHO 01/05/25 Conclusions: - The left ventricular systolic function is normal. The calculated ejection fraction is 64% by biplane method. - [id number] pericardial effusion, most prominent posterior to left ventricle. No evidence of cardiac tamponade. 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 Surgical History Surgical History S/P appendectomy H/O parathyroidectomy Status post hip surgery Social History Social History Household Members: None Housing: Apartment Are you a primary health care administrator to a significant other at home: No Do you presently have visiting nurse or other home services: No Alcohol intake: never Comment: Patient at times refusing bed alarm Patient Tobacco Use Status: Current everyday Tobacco user Tobacco use type: Cigarette Cigarette Packs Per Day: 0.5 Cigarettes Per Day: 10.0 Years Smoked: 59 e-Cigarette/Vaping Use: Currently Using Second Hand Smoke Exposure: No Advance Directives Date on File: 09/10/23 service: No 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 Current occupational exposures/hazards: No Cognitive needs: No Hearing needs: No Vision needs: Yes Meds Allergies Allergy/AdvReac Type Severity Reaction Status Date / Time oxycodone (From OxyContin) Allergy Mild Hives Verified 01/04/25 12:23 [place] Allergy Mild Hives & Uncoded 09/19/24 11:13 Swollen legs Home Medications ?Medication ?Instructions ?Recorded ?Confirmed ?Last Taken ?Type omeprazole 20 mg capsule,delayed 20 mg PO DAILY@0630 0 09/19/24 01/04/25 01/04/25 History release amlodipine 5 mg tablet 5 mg PO DAILY 01/04/2501/0401/04/25 History lidocaine 4 % topical patch 1 patch transdermal DAILY PRN Pain 01/04/25 01/04/25 Unknown History (Lidocaine Pain Relief) ropinirole 1 mg tablet 2 mg PO TID PRN Restless Leg (S) 01/04/25 01/04/25 01/04/25 History Exam Airway Denture: Upper and Lower Assessment and Plan Assessment Anesthesia Assessment: Anesthesia Plan Discussed and Chart Reviewed Final Anesthetic Review NPO: Yes ASA Class: IV Final Preanesthetic Review: No Changes in Pt Med Stat, Meds/Allgs Chart Reviewed, Consent Obtained/Reviewed and Anes Risks/Benef Reviewed Patient Risk: High Procedure Risk: Intermediate Anesthetic Plan Anesthetic Plan: Agree w/ Assess. and Plan and TIVA Disposition: Standard PACU
--- NOTE | 2025-01-05 10:53 | P.CONCA_ITS ---
History of Present Illness History of Present Illness Date of Service: 01/05/25 Chief complaint: Dyspnea Narrative: This is a cardiology consultation regarding pericardial effusion. Patient has many comorbidities. Current admissions because of shortness of breath. It seems that she has not been feeling well for the last couple of weeks or so. When I questioned her, she really does not give any clear information. It seems that the neighbors had called the EMS. Patient's feet were apparently covered in feces. Any case, she was brought to the ER for further assessment. Hemoglobin is very low at 4.6. There was concern for pericardial effusion. Per notes, she apparently went into atrial fibrillation in the emergency room and then she got IV diltiazem. Currently, she states she is feeling okay. No clear-cut concerns. We have been asked to assess further. Per previous Cardiology notes, it seems that in September of this year, she underwent a permanent pacemaker for diagnosis of sick sinus syndrome. However, she has not been seen in clinic after that. Review of Systems 2 Review of Systems: Yes all other systems are reviewed and are negative Constitutional: Constitutional: Reports as per HPI and Reports no additional constitutional complaints Eyes: Eyes: Reports as per HPI and Denies no additional eye complaints ENT: Denies system reviewed and no additional complaints, except as documented and Reports as per HPI Cardiovascular: Cardiovascular: Reports as per HPI, Reports no additional cardiovascular complaints, Denies acrocyanosis, Denies cool extremities, Denies chest pain, Denies leg edema, Denies lightheadedness, Denies palpitations and Denies dyspnea Respiratory: Respiratory: Reports as per HPI, Denies no additional respiratory complaints and Denies dyspnea Gastrointestinal: Gastrointestinal: Reports as per HPI and Denies no additional gastrointestinal complaints Genitourinary: Genitourinary: Reports as per HPI Musculoskeletal: Musculoskeletal: Reports no additional musculoskeletal complaints and Reports as per HPI Integumentary/Breasts: Skin/Breast: Reports system reviewed and no additional complaints, except as docu Neurologic: Reports system reviewed and no additional complaints, except as documented and Reports as per HPI Psychiatric: Psychiatric: Reports no additional psychiatric complaints and Reports as per HPI Endocrine: Endocrine: Reports no additional endocrine complaints, Reports as per HPI and Denies palpitations Hematologic/Lymphatic: Hematologic/Lymphatic: Reports no additional hematologic/lymphatic complaints and Reports as per HPI Allergic/Immunologic: Allergic/Immunologic: Reports no additional allergic/immunologic complaints and Reports as per HPI PMFSH Past Medical History Medical History 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 Surgical History Surgical History S/P appendectomy H/O parathyroidectomy Status post hip surgery Social History Social History Household Members: None Housing: Apartment Are you a primary certified caregiver to a significant other at home: No Do you presently have visiting nurse or other home services: No Alcohol intake: never Comment: Patient at times refusing bed alarm Patient Tobacco Use Status: Current everyday Tobacco user Tobacco use type: Cigarette Cigarette Packs Per Day: 0.5 Cigarettes Per Day: 10.0 Years Smoked: 59 e-Cigarette/Vaping Use: Currently Using Second Hand Smoke Exposure: No Advance Directives Date on File: 09/10/23 service: No Current occupational status: retired 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 Current occupational exposures/hazards: No Cognitive needs: No Hearing needs: No Vision needs: Yes Meds Allergies Allergy/AdvReac Type Severity Reaction Status Date / Time oxycodone (From OxyContin) Allergy Mild Hives Verified 01/04/25 12:23 [place] Allergy Mild Hives & Uncoded 09/19/24 11:13 Swollen legs Active Medications: Current Medications Acetaminophen (Acetaminophen 325 Mg Tablet) 650 mg PO Q6H PRN PRN Reason: Pain, Mild 1-3,fever,headache Albuterol Sulfate (Albuterol Sulfate 90 Mcg 8 Gm Inhaler) 2 puff INHALE Q4H PRN PRN Reason: shortness of breath or wheezing Amlodipine Besylate (Amlodipine Besylate 5 Mg Tablet) 5 mg PO DAILY GABRIELA; Protocol Calcium Carbonate (Calcium Carbonate 750 Mg Tab.Chew) 750 mg PO Q4H PRN PRN Reason: Heartburn Cyanocobalamin (Cyanocobalamin (Vitamin B-12) 1,000 Mcg Tablet) 1,000 mcg PO DAILY GABRIELA Ferrous Sulfate (Ferrous Sulfate 324 Mg Tablet.) 324 mg PO BID [facility] Folic Acid (Folic Acid 1 Mg Tablet) 1 mg PO DAILY [facility] Furosemide (Furosemide 40 Mg/4 Ml Vial) 40 mg IVPUSH DAILY [facility]; Protocol Last Admin: 01/04/25 22:24 Dose: 40 mg Magnesium Hydroxide (Milk Of Magnesia 30 Ml Oral.Susp) 30 ml PO DAILY PRN PRN Reason: Constipation Melatonin (Melatonin 3 Mg Tablet) 6 mg PO BEDTIME PRN PRN Reason: Insomnia Omeprazole (Omeprazole 20 Mg Capsule.Dr) 20 mg PO DAILY@0630 [facility] Ondansetron HCl (Ondansetron Hcl 4 Mg/2 Ml Vial) 4 mg IVPUSH Q8H PRN PRN Reason: Nausea and Vomiting Pravastatin Sodium (Pravastatin Sodium 40 Mg Tablet) 40 mg PO DAILY [facility] Ropinirole HCl (Ropinirole Hcl 2 Mg Tablet) 2 mg PO TID PRN PRN Reason: Restless Leg(S) Last Admin: 01/04/25 22:32 Dose: 2 mg Sodium Chloride (0.9 % Sodium Chloride Flush 3 Ml Syringe) 3 ml IVFLUSH QSHIFT [facility] Last Admin: 01/04/25 22:41 Dose: 3 ml Vitamin D (Cholecalciferol (Vitamin D3) 25 Mcg Tablet) 125 mcg PO DAILY [facility] Home Medications ?Medication ?Instructions ?Recorded ?Confirmed ?Last Taken ?Type omeprazole 20 mg capsule,delayed 20 mg PO DAILY@0630 0 09/19/24 01/04/25 01/04/25 History release amlodipine 5 mg tablet 5 mg PO DAILY 01/04/2501/0401/04/25 History lidocaine 4 % topical patch 1 patch transdermal DAILY PRN Pain 01/04/25 01/04/25 Unknown History (Lidocaine Pain Relief) ropinirole 1 mg tablet 2 mg PO TID PRN Restless Leg (S) 01/04/25 01/04/25 01/04/25 History Physical Exam 2 Vital Signs: Vital Signs: Last Vital Signs Temp 97.1 F 01/05/25 07:33 Pulse 74 01/05/25 07:33 Resp 16 01/05/25 07:33 BP 156/70 H 01/05/25 07:33 Pulse Ox 96 01/05/25 07:33 O2 Del Method Nasal Cannula 01/05/25 07:33 O2 Flow Rate 2 01/05/25 07:33 BMI result Body Mass Index 20.7 Const: General: comfortable and no acute distress O rientation/consciousness: patient oriented x3 HEENT: Other: Unremarkable Head: Yes normal to inspection Neck: Neck: Yes normal visual inspection Chest: Chest palpation & inspection: normal inspection of the chest Resp: Auscultation: clear to auscultation bilaterally Cardio: Palpation: normal PMI Heart sounds: S1 normal heart sound present, S2 normal heart sound present, no gallops, no murmurs and no rubs GI: Palpation (GI): Soft to palpation Back/Spine/Pelvis: Other: unremarkable Skin: General skin exam: no rashes or lesions noted Neuro: General: patient oriented x3 Extrem: General: Yes normal to inspection Psych: Mental Status: mental status grossly normal Objective Labs and Meds 01/05/25 05:58 01/05/25 05:58 Lab results: Laboratory Results - last 24 hr 01/04/25 01/04/25 01/04/25 13:30 14:11 16:02 WBC 30.1 H* RBC 2.37 L D Hgb 4.6 L* D Hct 15.6 L* D MCV 65.8 L MCH 19.4 L MCHC 29.5 L RDW 20.9 H Plt Count 778 H D MPV 9.0 L Immature Gran % (Auto) 1.8 H Neut % (Auto) 87.4 H Lymph % (Auto) 4.0 L [place] % (Auto) 6.5 Eos % (Auto) 0.1 Baso % (Auto) 0.2 Lymph # (Auto) 1.2 [place] # (Auto) 2.0 H Eos # (Auto) 0.0 Baso # (Auto) 0.1 Abs Immat Gran (auto) 0.53 H Absolute Neuts (auto) 26.4 H Absolute Nucleated RBC 0.050 H Nucleated RBC % (auto) 0.2 Smear Tech's Comments VERIFIED Absolute Retic 0.073 Percent Retic 3.1 H Immature Retic Fraction 33.0 H Retic Hgb Equivalent 15.2 L PT 14.6 H D INR 1.3 H APTT 29.3 Sodium 134 L Potassium 3.7 Chloride 105 Carbon Dioxide 20 L Anion Gap 13 BUN 15 Creatinine 0.73 Estim Creat Clear Calc 44.7 Estimated GFR > 60 Random Glucose 99 Lactic Acid 1.5 Calcium 7.8 L D Phosphorus 4.0 Magnesium 1.9 Iron 7 L TIBC 258 % Saturation 3 L Unsat Iron Binding 251 Total Bilirubin 0.5 AST 21 ALT 7 Alkaline Phosphatase 67 Lactate Dehydrogenase 310 H B-Natriuretic Peptide 576 H Total Protein 6.0 L Albumin 2.7 L Procalcitonin 1.23 TSH 1.74 COVID-19 (SHIMA) Negative COVID-19 Clin Com See Note Blood Type A Positive Antibody Screen POSITIVE Antibody Identification Inconclusive Antigen Identification C Antigen - POSITIVE Crossmatch ([facility]) See Detail 01/05/25 05:58 WBC 26.1 H RBC 4.23 D Hgb 9.5 L D Hct 30.2 L D MCV 71.4 L D MCH 22.5 L MCHC 31.5 RDW 21.4 H Plt Count 704 H MPV 9.1 L Immature Gran % (Auto) 1.8 H Neut % (Auto) 91.4 H Lymph % (Auto) 2.8 L [place] % (Auto) 3.8 Eos % (Auto) 0.0 Baso % (Auto) 0.2 Lymph # (Auto) 0.7 L [place] # (Auto) 1.0 Eos # (Auto) 0.0 Baso # (Auto) 0.1 Abs Immat Gran (auto) 0.46 H Absolute Neuts (auto) 23.9 H Absolute Nucleated RBC 0.070 H Nucleated RBC % (auto) 0.3 H Smear Tech's Comments VERIFIED Absolute Retic Percent Retic Immature Retic Fraction Retic Hgb Equivalent PT INR APTT Sodium 137 Potassium 4.6 D Chloride 106 Carbon Dioxide 19 L Anion Gap 17 BUN 18 H Creatinine 0.67 Estim Creat Clear Calc 52.2 Estimated GFR > 60 Random Glucose 131 H Lactic Acid Calcium 7.6 L Phosphorus Magnesium Iron TIBC % Saturation Unsat Iron Binding Total Bilirubin AST ALT Alkaline Phosphatase Lactate Dehydrogenase B-Natriuretic Peptide Total Protein Albumin Procalcitonin TSH COVID-19 (SHIMA) COVID-19 Clin Com Blood Type Antibody Screen Antibody Identification Antigen Identification Crossmatch ([facility]) ECG Interpretation: EKG on admission shows sinus rhythm at 87/Min. In the subsequent EKG, she is atrial fibrillation at a rate of 176/Min. Nonspecific ST-T changes. Imaging Radiologist's impression: Impressions Chest X-Ray 01/04/25 11:35 IMPRESSION: COPD. Dual-lead pacer device in good position. Increased markings in the retrocardiac region suggestive of possible pneumonia. Electronically signed by: Johnny Lockett MD 01/04/2025 12:[address] 01/04/25 14:08 IMPRESSION: 1. Cardiomegaly with moderate to large sized pericardial effusion. Dilatation of the main pulmonary artery suggesting pulmonary arterial hypertension. 2. Small layering pleural effusions with associated passive atelectasis of the lower lobes. 3. Mild interstitial pulmonary edema present. Linear atelectasis in the lingula and right middle lobe. No definite pneumonic infiltrate. 4. Mediastinal lymphadenopathy, uncertain significance or etiology. There are prominent axillary lymph nodes measuring up to 1 cm as well. 5. Heavy calcification and ectasia of the aorta without aneurysm or acute aortic syndrome. 6. Dual-lead AICD device in place. 7. Old healed burst fracture of T3, with underlying sclerosis, possible subacute pathologic fracture. This was present on prior CT cervical 09/19/2024. Electronically signed by: Johnny Lockett MD 01/04/2025 03:57 PM EDT RP Abdomen/Pelvis CT 01/04/25 15:08 IMPRESSION: Moderate to large pericardial effusion cardiac tamponade cannot be excluded. Bilateral pleural effusions, moderate volume. Atherosclerosis disease. No intestinal obstruction pattern. Findings communicated to the requesting physician Dr.Jordan [place] at 3:43 PM on January 04, 2025. Fleischner guidelines were followed. Electronically signed by: Lloyd Vidales MD 01/04/2025 03:50 PM EDT RP Assessment and Plan (1) Pericardial effusion: Status: Acute (2) Preoperative cardiovascular examination: Status: Acute (3) Anemia: Qualifiers: Anemia type: iron deficiency Iron deficiency anemia type: unspecified iron deficiency Qualified Code(s): D50.9 - Iron deficiency anemia, unspecified Status: Acute Plan Admission hemoglobin was 4.6 but currently 9.5 after transfusion. Pericardial effusion reviewed on echocardiogram and no more than moderate. No evidence of tamponade physiology. She did have some atrial fibrillation but currently back in sinus rhythm. May use some beta-blockers to prevent recurrence. Not suitable for anticoagulation in the setting due to severe anemia. With regard to endoscopy workup, may proceed as planned. We will follow up with you. Procedures Date of Service Date of Service: 01/05/25
[2025-01-05] MEDS: Furosemide 40 MG/4 ML VIAL IVPUSH (11:18)
[2025-01-05] MEDS: 0.9 % Sodium Chloride Flush 3 ML SYRINGE IVFLUSH ×3 (11:20→21:16)
--- NOTE | 2025-01-05 11:47 | MHC.CM.PN ---
IMM DELIVERED PT LIVES ALONE, USES [facility] FOR MOBILITY. PT HAS MOW, NO SKILLED SERVICES. + HCP ON FILE AND VERIFIED. PCP ARM[facility]O [facility]ARE[facility] DP: HOME WITH SERVICES VS STR? PT WILL BENEFIT FROM A P.T. EVAL TO DETERMINE DC DISPO. PT WILL NEED ASSIST WITH TRANSPORT ON DC. CM WILL CONTINUE TO FOLLOW FOR ANY CHANGES TO DC PLAN.
--- NOTE | 2025-01-05 13:19 | MHC.CLN ---
NUTRITION CONSULT PATIENT REPORTED DECREASED APPETITE. SHOWS FAVORABLE WEIGHT GAIN X 3 MONTHS, +11% DIET=REGULAR. NO ADDITIONAL NUTRITION INTERVENTIONS AT THIS TIME.
--- NOTE | 2025-01-05 14:06 | PC.NURSE ---
Pt a/ox3, not situation. Forgetful. Denies pain or SOB. Occasional NPC. NPO status maintained. Report given to Avani eisenberg to be transferred to [employer]
--- NOTE | 2025-01-05 16:29 | PM.EVENT ---
Event Note Date of Service: 01/05/25 Event Note: Pacemaker Interrogation: Medtronic dual chamber pacemaker, battery 15 years, Atrial threshold 0.625V at 0.4ms, AAA-DDD mode, low rate 60, upper tracking rate 130, episodes of high V rates/ PAF with overall burden 0.4% since September, current EGM showing A sensed and ventricular sensed rhythm, COMPUTERIZED MILL RECORDER < 0.1%, AP 1.5%. - Procedure only Charge Code 18179 Time Spent With Patient Time: Total time managing care of this patient today _15___ minutes.
[2025-01-05] MEDS: Ferrous Sulfate 324 MG TABLET.DR PO (21:16)
[2025-01-06] VITALS (7 sets, daily range): BP systolic 126–169; BP diastolic 63–79; PULSE 65–82; RESP 16–20; TEMP 36.1–37.4; O2SAT 96–100
[2025-01-06] MEDS: Ferrous Sulfate 324 MG TABLET.DR PO ×2 (09:07→19:14)
[2025-01-06] MEDS: Furosemide 40 MG/4 ML VIAL IVPUSH (09:07)
[2025-01-06] MEDS: 0.9 % Sodium Chloride Flush 3 ML SYRINGE IVFLUSH ×2 (09:08→19:14)
--- NOTE | 2025-01-06 09:51 | P.PNIM_ITS ---
Subjective Subjective Date of Service: 01/06/25 Interval History: f/u on acute blood loss anemia new afib with rvr HR is controlled, no sings of bleeding EGD is postponed until next wednesday Physical Exam 2 Exam: Exam: General: AO X 3, no acute distress Resp: CTA bilateral CVS: S1,S2,RRR, no leg edema GI: +BS, NT, no distention Skin: No rash Neuro: motor grossly intact Psych: appropriate affect Vital Signs: Vital Signs: Last Vital Signs Temp 97.9 F 01/06/25 08:00 Pulse 65 01/06/25 08:00 Resp 20 01/06/25 08:00 BP 155/79 H 01/06/25 08:00 Pulse Ox 97 01/06/25 08:00 O2 Del Method Room Air 01/06/25 08:00 O2 Flow Rate 2 01/06/25 04:00 BMI result Body Mass Index 20.7 Objective Data Active Medications Acetaminophen (Acetaminophen 325 Mg Tablet) 650 mg PO Q6H PRN PRN Reason: Pain, Mild 1-3,fever,headache Last Admin: 01/06/25 03:34 Dose: 650 mg Documented By: DESTINY Albuterol Sulfate (Albuterol Sulfate 90 Mcg 8 Gm Inhaler) 2 puff INHALE Q4H PRN PRN Reason: shortness of breath or wheezing Amlodipine Besylate (Amlodipine Besylate 5 Mg Tablet) 5 mg PO DAILY COUNTS INCLUDE 234 BEDS AT THE [facility]; Protocol Last Admin: 01/06/25 09:06 Dose: 5 mg Documented By: GODWIN Calcium Carbonate (Calcium Carbonate 750 Mg Tab.Chew) 750 mg PO Q4H PRN PRN Reason: Heartburn Cyanocobalamin (Cyanocobalamin (Vitamin B-12) 1,000 Mcg Tablet) 1,000 mcg PO DAILY COUNTS INCLUDE 234 BEDS AT THE [facility] Last Admin: 01/06/25 09:07 Dose: 1,000 mcg Documented By: GODWIN Ferrous Sulfate (Ferrous Sulfate 324 Mg Tablet.) 324 mg PO BID COUNTS INCLUDE 234 BEDS AT THE [facility] Last Admin: 01/06/25 09:07 Dose: 324 mg Documented By: GODWIN Folic Acid (Folic Acid 1 Mg Tablet) 1 mg PO DAILY COUNTS INCLUDE 234 BEDS AT THE [facility] Last Admin: 01/06/25 09:06 Dose: 1 mg Documented By: GODWIN Furosemide (Furosemide 40 Mg/4 Ml Vial) 40 mg IVPUSH DAILY COUNTS INCLUDE 234 BEDS AT THE [facility]; Protocol Last Admin: 01/06/25 09:07 Dose: 40 mg Documented By: GODWIN Magnesium Hydroxide (Milk Of Magnesia 30 Ml Oral.Susp) 30 ml PO DAILY PRN PRN Reason: Constipation Melatonin (Melatonin 3 Mg Tablet) 6 mg PO BEDTIME PRN PRN Reason: Insomnia Last Admin: 01/06/25 03:34 Dose: 6 mg Documented By: DESTINY Omeprazole (Omeprazole 20 Mg Capsule.Dr) 20 mg PO DAILY@0630 COUNTS INCLUDE 234 BEDS AT THE [facility] Last Admin: 01/06/25 05:59 Dose: 20 mg Documented By: DESTINY Ondansetron HCl (Ondansetron Hcl 4 Mg/2 Ml Vial) 4 mg IVPUSH Q8H PRN PRN Reason: Nausea and Vomiting Pravastatin Sodium (Pravastatin Sodium 40 Mg Tablet) 40 mg PO DAILY COUNTS INCLUDE 234 BEDS AT THE [facility] Last Admin: 01/06/25 09:17 Dose: 40 mg Documented By: GODWIN Ropinirole HCl (Ropinirole Hcl 2 Mg Tablet) 2 mg PO TID PRN PRN Reason: Restless Leg(S) Last Admin: 01/05/25 16:40 Dose: 2 mg Documented By: YAS Sodium Chloride (0.9 % Sodium Chloride Flush 3 Ml Syringe) [facility] Last Admin: 01/06/25 09:08 Dose: 3 ml Documented By: GODWIN Vitamin D (Cholecalciferol (Vitamin D3) 25 Mcg Tablet) 125 mcg PO DAILY COUNTS INCLUDE 234 BEDS AT THE [facility] Last Admin: 01/06/25 09:07 Dose: 125 mcg Documented By: GODWIN Labs 01/05/25 05:58 01/05/25 05:58 Labs: Laboratory Results - last 24 hr 01/04/25 01/04/25 01/04/25 13:30 14:11 16:02 MCV 65.8 L MCH 19.4 L MCHC 29.5 L RDW 20.9 H Plt Count 778 H D MPV 9.0 L Immature Gran % (Auto) 1.8 H Neut % (Auto) 87.4 H Lymph % (Auto) 4.0 L [place] % (Auto) 6.5 Eos % (Auto) 0.1 Baso % (Auto) 0.2 Lymph # (Auto) 1.2 [place] # (Auto) 2.0 H Eos # (Auto) 0.0 Baso # (Auto) 0.1 Abs Immat Gran (auto) 0.53 H Absolute Neuts (auto) 26.4 H Absolute Nucleated RBC 0.050 H Nucleated RBC % (auto) 0.2 Smear Tech's Comments VERIFIED Absolute Retic 0.073 Percent Retic 3.1 H Immature Retic Fraction 33.0 H Retic Hgb Equivalent 15.2 L PT 14.6 H D INR 1.3 H APTT 29.3 Anion Gap 13 Estim Creat Clear Calc 44.7 Estimated GFR > 60 Random Glucose 99 Lactic Acid 1.5 Calcium 7.8 L D Phosphorus 4.0 Magnesium 1.9 Iron 7 L TIBC 258 % Saturation 3 L Unsat Iron Binding 251 Total Bilirubin 0.5 AST 21 ALT 7 Alkaline Phosphatase 67 Lactate Dehydrogenase 310 H B-Natriuretic Peptide 576 H Total Protein 6.0 L Albumin 2.7 L Procalcitonin 1.23 TSH 1.74 COVID-19 ([facility]IM[facility]) Negative COVID-SCM-GL Clin Com See Note Blood Type A Positive Antibody Screen POSITIVE Antibody Identification Inconclusive Antigen Identification C Antigen - POSITIVE Crossmatch ([facility]) See Detail 01/05/25 05:58 MCV 71.4 L D MCH 22.5 L MCHC 31.5 RDW 21.4 H Plt Count 704 H MPV 9.1 L Immature Gran % (Auto) Neut % (Auto) Lymph % (Auto) [place] % (Auto) Eos % (Auto) Baso % (Auto) Lymph # (Auto) [place] # (Auto) Eos # (Auto) Baso # (Auto) Abs Immat Gran (auto) Absolute Neuts (auto) Absolute Nucleated RBC Nucleated RBC % (auto) Smear Tech's Comments Absolute Retic Percent Retic Immature Retic Fraction Retic Hgb Equivalent PT INR APTT Anion Gap 17 Estim Creat Clear Calc 52.2 Estimated GFR > 60 Random Glucose 131 H Lactic Acid Calcium 7.6 L Phosphorus Magnesium Iron TIBC % Saturation Unsat Iron Binding Total Bilirubin AST ALT Alkaline Phosphatase Lactate Dehydrogenase B-Natriuretic Peptide Total Protein Albumin Procalcitonin TSH COVID-19 (SHIMA) COVID-SCM-GL Clin Com Blood Type Antibody Screen Antibody Identification Antigen Identification Crossmatch ([facility]) Microbiology Microbiology Results: Microbiology 01/04/25 14:10 Blood Culture - Preliminary Blood - Venous No growth after 24 hours. 01/04/25 14:10 Blood Culture - Preliminary Blood - Venous No growth after 24 hours. Assessment and Plan (1) Anemia: Status: Acute (2) Iron deficiency anemia: Status: Acute (3) Afib: Status: Acute Plan 79-year-old female with pertinent history of duodenal AVMs, rheumatoid arthritis, pseudogout, hypertension, iron-deficiency anemia, COPD not on home oxygen who was brought to the emergency department for evaluation of dyspnea. Acute, severe symptomatic anemia on chronic iron-deficiency anemia, Hgb of 4 transfused 3 units of rbcs H/H is better, continue monitoring,check h/h today For EGD scheduled for tuesday 01/09 Acute HFpEF, suspect high output heart failure from anemia. Presently appear compensated IV diuresis between PRBC units Cardiololgy consult Echo Pericardial effusion: reviewed by cardiology with the following assessment and recommendation: Pericardial effusion reviewed on echocardiogram and no more than moderate. No evidence of tamponade physiology. She did have some atrial fibrillation but currently back in sinus rhythm. May use some beta-blockers to prevent recurrence. Not suitable for anticoagulation in the setting due to severe anemia. With regard to endoscopy workup, may proceed as planned. AFib with RVR, new onset, now rate control HR in 60, possibly precipitated by anemia nl TSH hold anticoagulation in light of severe anemia needing transfusion metoprolol as needed to control HR Mild metabolic acidosis, appear chronic ? RTA Leukocytosis, ?leukemoid reaction. Given empiric ceftriaxone in the ER. Blood cultures pending. No fever, pro calcitonin 1.23 Rheumatoid arthritis: Continue anti-inflammatories COPD: No exacerbation DVT prophylaxis: Mechanical Full code. Discussed with patient at bedside Quality Stroke Does the patient have a stroke diagnosis?: No VTE Prior VTE?: No VTE Risk Level:: Medical - moderate - high VTE Device Contraindication: N/A - Device Ordered VTE Drug Contraindication: Treatment Not Indicated
[2025-01-06 10:28] LABS: Hematocrit 35.1 % (37.0-47.0); Hemoglobin 10.8 g/dl (12.0-16.0); Mean Corpuscular HGB Conc 30.8 g/dl (31.0-35.0); Mean Corpuscular Hemoglobin 22.0 pg (27.0-33.0); Mean Corpuscular Volume 71.6 fL (80.0-98.0); NRBC Abs Auto 0.050 X10*3/uL (0.0-0.012); NRBC Pct Auto 0.3 /100WBC (0.0-0.2); Platelet Count 772 X10*3/uL (160-400); Red Blood Count 4.90 X10*6/uL (4.20-5.50); White Blood Count 15.3 X10*3/uL (4.8-10.8)
[2025-01-06 10:49] LABS: Blood Urea Nitrogen 23 mg/dL (9-16); Calcium 8.3 mg/dL (8.4-10.2); Creatinine Clr Calc Pharmacy 50.7; Estimated Glomerular Filt Rate > 60
[2025-01-06 10:56] LABS: Anion Gap 15 (12-20); Carbon Dioxide 22 mmol/L (22-29); Chloride 104 mmol/L (96-108); Potassium 3.4 mmol/L (3.3-5.1); Sodium 138 mmol/L (135-145)
[2025-01-07 03:18] VITALS: BP 136/86; PULSE 81; RESP 18; TEMP 36.8; O2SAT 97
[2025-01-07 07:36] VITALS: BP 148/79; PULSE 76; RESP 20; TEMP 36.9; O2SAT 98
[2025-01-07] MEDS: Ferrous Sulfate 324 MG TABLET.DR PO ×2 (08:14→20:38)
[2025-01-07] MEDS: Furosemide 40 MG/4 ML VIAL IVPUSH (08:15)
[2025-01-07] MEDS: 0.9 % Sodium Chloride Flush 3 ML SYRINGE IVFLUSH (08:15)
--- NOTE | 2025-01-07 09:19 | HO.PM.IMPN ---
Subjective Subjective Date of Service: 01/07/25 Interval History: f/u on acute blood loss anemia new afib with rvr HR is controlled, no sings of bleeding EGD is postponed until next wednesday no bleeding H/H is better and steady Physical Exam Exam: Exam: General: AO X 3, no acute distress Resp: CTA bilateral CVS: S1,S2,RRR, no leg edema GI: +BS, NT, no distention Skin: No rash Neuro: motor grossly intact Psych: appropriate affect Vital Signs: Vital Signs: Last Vital Signs Temp 98.4 F 01/07/25 07:36 Pulse 76 01/07/25 07:36 Resp 20 01/07/25 07:36 BP 148/79 H 01/07/25 07:36 Pulse Ox 98 01/07/25 07:36 O2 Del Method Room Air 01/07/25 07:36 O2 Flow Rate 2 01/06/25 04:00 BMI result Body Mass Index 20.7 Objective Data Active Medications Acetaminophen (Acetaminophen 325 Mg Tablet) 650 mg PO Q6H PRN PRN Reason: Pain, Mild 1-3,fever,headache Last Admin: 01/07/25 01:13 Dose: 650 mg Documented By: INGRID Albuterol Sulfate (Albuterol Sulfate 90 Mcg 8 Gm Inhaler) 2 puff INHALE Q4H PRN PRN Reason: shortness of breath or wheezing Amlodipine Besylate (Amlodipine Besylate 5 Mg Tablet) 5 mg PO DAILY [facility]; Protocol Last Admin: 01/07/25 08:15 Dose: 5 mg Documented By: GODWIN Calcium Carbonate (Calcium Carbonate 750 Mg Tab.Chew) 750 mg PO Q4H PRN PRN Reason: Heartburn Cyanocobalamin (Cyanocobalamin (Vitamin B-12) 1,000 Mcg Tablet) 1,000 mcg PO DAILY [facility] Last Admin: 01/07/25 08:14 Dose: 1,000 mcg Documented By: GODWIN Ferrous Sulfate (Ferrous Sulfate 324 Mg Tablet.) 324 mg PO BID [facility] Last Admin: 01/07/25 08:14 Dose: 324 mg Documented By: GODWIN Folic Acid (Folic Acid 1 Mg Tablet) 1 mg PO DAILY [facility] Last Admin: 01/07/25 08:14 Dose: 1 mg Documented By: GODWIN Furosemide (Furosemide 40 Mg/4 Ml Vial) 40 mg IVPUSH DAILY [facility]; Protocol Last Admin: 01/07/25 08:15 Dose: 40 mg Documented By: GODWIN Magnesium Hydroxide (Milk Of Magnesia 30 Ml Oral.Susp) 30 ml PO DAILY PRN PRN Reason: Constipation Melatonin (Melatonin 3 Mg Tablet) 6 mg PO BEDTIME PRN PRN Reason: Insomnia Last Admin: 01/07/25 01:12 Dose: 6 mg Documented By: INGRID Omeprazole (Omeprazole 20 Mg Capsule.) 20 mg PO DAILY@0630 [facility] Last Admin: 01/07/25 05:51 Dose: 20 mg Documented By: INGRID Ondansetron HCl (Ondansetron Hcl 4 Mg/2 Ml Vial) 4 mg IVPUSH Q8H PRN PRN Reason: Nausea and Vomiting Pravastatin Sodium (Pravastatin Sodium 40 Mg Tablet) 40 mg PO DAILY [facility] Last Admin: 01/07/25 08:15 Dose: 40 mg Documented By: GODWIN Ropinirole HCl (Ropinirole Hcl 2 Mg Tablet) 2 mg PO TID PRN PRN Reason: Restless Leg(S) Last Admin: 01/07/25 08:27 Dose: 2 mg Documented By: GODWIN Sodium Chloride (0.9 % Sodium Chloride Flush 3 Ml Syringe) 3 ml IVFLUSH QSHIFT [facility] Last Admin: 01/07/25 08:15 Dose: 3 ml Documented By: GODWIN Vitamin D (Cholecalciferol (Vitamin D3) 25 Mcg Tablet) 125 mcg PO DAILY [facility] Last Admin: 01/07/25 08:14 Dose: 125 mcg Documented By: GODWIN Labs 01/06/25 10:13 01/06/25 10:13 Labs: Laboratory Results - last 24 hr 01/06/25 10:13 MCV 71.6 L MCH 22.0 L MCHC 30.8 L RDW 21.5 H Plt Count 772 H MPV 8.9 L Absolute Nucleated RBC 0.050 H Nucleated RBC % (auto) 0.3 H Anion Gap 15 Estim Creat Clear Calc 50.7 Estimated GFR > 60 Random Glucose 93 Calcium 8.3 L D Microbiology Microbiology Results: Microbiology 01/04/25 14:10 Blood Culture - Preliminary Blood - Venous No growth after 48 hours. 01/04/25 14:10 Blood Culture - Preliminary Blood - Venous No growth after 48 hours. Assessment and Plan (1) Anemia: Status: Acute (2) Iron deficiency anemia: Status: Acute (3) Afib: Status: Acute Plan 79-year-old female with pertinent history of duodenal AVMs, rheumatoid arthritis, pseudogout, hypertension, iron-deficiency anemia, COPD not on home oxygen who was brought to the emergency department for evaluation of dyspnea. Acute, severe symptomatic anemia on chronic iron-deficiency anemia, Hgb of 4 transfused 3 units of rbcs, hemoglobin now 10 and stable the last 2 days continue monitoring For EGD scheduled for tuesday 01/09 Acute HFpEF, suspect high output heart failure from anemia. Presently appear compensated DC IV Lasix Cardiololgy consult Echo Pericardial effusion: reviewed by cardiology with the following assessment and recommendation: Pericardial effusion reviewed on echocardiogram and no more than moderate. No evidence of tamponade physiology. She did have some atrial fibrillation but currently back in sinus rhythm. May use some beta-blockers to prevent recurrence. Not suitable for anticoagulation in the setting due to severe anemia. With regard to endoscopy workup, may proceed as planned. AFib with RVR, new onset, now rate control HR in 60, possibly precipitated by anemia nl TSH hold anticoagulation in light of severe anemia needing transfusion metoprolol as needed to control HR Mild metabolic acidosis, appear chronic or related to anemia, resolved Leukocytosis, ?leukemoid reaction. Given empiric ceftriaxone in the ER. Blood cultures pending. No fever, pro calcitonin 1.23 Rheumatoid arthritis: Continue anti-inflammatories COPD: No exacerbation DVT prophylaxis: Mechanical Full code. Discussed with patient at bedside Quality Stroke Does the patient have a stroke diagnosis?: No VTE Prior VTE?: No VTE Risk Level:: Medical - moderate - high VTE Device Contraindication: N/A - Device Ordered VTE Drug Contraindication: Treatment Not Indicated
--- NOTE | 2025-01-07 11:56 | PM.PNCARD ---
Subjective Subjective Date of Service: 01/07/25 Interval history: She states that she feels fine. No specific cardiac concerns. Review of Systems Review of Systems Yes all other systems are reviewed and are negative Constitutional: Reports as per HPI and Reports no additional constitutional complaints Eyes: Reports as per HPI and Denies no additional eye complaints Denies system reviewed and no additional complaints, except as documented and Reports as per HPI Cardiovascular: Reports as per HPI, Reports no additional cardiovascular complaints, Denies acrocyanosis, Denies cool extremities, Denies chest pain, Denies leg edema, Denies lightheadedness, Denies palpitations and Denies dyspnea Respiratory: Reports as per HPI, Denies no additional respiratory complaints and Denies dyspnea Gastrointestinal: Reports as per HPI and Denies no additional gastrointestinal complaints Genitourinary: Reports as per HPI Musculoskeletal: Reports no additional musculoskeletal complaints and Reports as per HPI Skin/Breast: Reports system reviewed and no additional complaints, except as docu Reports system reviewed and no additional complaints, except as documented and Reports as per HPI Psychiatric: Reports no additional psychiatric complaints and Reports as per HPI Endocrine: Reports no additional endocrine complaints, Reports as per HPI and Denies palpitations Hematologic/Lymphatic: Reports no additional hematologic/lymphatic complaints and Reports as per HPI Allergic/Immunologic: Reports no additional allergic/immunologic complaints and Reports as per HPI Physical Exam Vital Signs: Last Vital Signs Temp 98.4 F 01/07/25 07:36 Pulse 76 01/07/25 07:36 Resp 20 01/07/25 07:36 BP 148/79 H 01/07/25 07:36 Pulse Ox 98 01/07/25 07:36 O2 Del Method Room Air 01/07/25 07:36 O2 Flow Rate 2 01/06/25 04:00 BMI result Body Mass Index 20.7 Const General: comfortable and no acute distress Orientation/consciousness: patient oriented x3 HEENT Other: Unremarkable Head: Yes normal to inspection Neck Neck: Yes normal visual inspection Chest Chest palpation & inspection: normal inspection of the chest Resp Auscultation: clear to auscultation bilaterally Cardio Palpation: normal PMI Heart sounds: S1 normal heart sound present, S2 normal heart sound present, no gallops, no murmurs and no rubs GI Palpation (GI): Soft to palpation Back/Spine/Pelvis Other: unremarkable Skin General skin exam: no rashes or lesions noted Neuro General: patient oriented x3 Extrem General: Yes normal to inspection Psych Mental Status: mental status grossly normal Objective Labs and Meds 01/06/25 10:13 01/06/25 10:13 Progress Note: A&P Assessment and plan (1) Pericardial effusion: Status: Acute (2) Paroxysmal atrial fibrillation: Status: Acute (3) Encounter for interrogation of cardiac pacemaker: Status: Acute (4) Anemia: Status: Acute Plan On the echocardiogram, pericardial effusion is no more than moderate. Not hemodynamically significant at this time. With regard to atrial fibrillation, she is back to normal sinus rhythm. Keep her on some beta-blockers. May not be suitable for anticoagulation with significant anemia/bleeding. Pacemaker was also interrogated, essentially normal function. She has had a few episodes of atrial fibrillation over the last week. With regard to endoscopy workup, may proceed as planned. Time Spent With Patient Time: Total time managing care of this patient today ____ minutes. Progress Note: Quality Stroke Does the patient have a stroke diagnosis?: No Procedures Date of Service Date of Service: 01/07/25
[2025-01-07 12:00] VITALS: BP 124/67; PULSE 90; RESP 20; TEMP 36.6; O2SAT 98
[2025-01-07 15:18] VITALS: BP 110/56; PULSE 87; RESP 20; TEMP 37.1; O2SAT 97
[2025-01-07 20:00] VITALS: BP 142/77; PULSE 86; RESP 20; TEMP 36.4; O2SAT 96
[2025-01-08] VITALS (8 sets, daily range): BP systolic 114–179; BP diastolic 63–88; PULSE 70–84; RESP 16–20; TEMP 36.2–36.8; O2SAT 95–98
[2025-01-08] MEDS: 0.9 % Sodium Chloride Flush 3 ML SYRINGE IVFLUSH ×3 (00:23→23:54)
[2025-01-08] MEDS: Ferrous Sulfate 324 MG TABLET.DR PO ×2 (07:35→20:06)
--- NOTE | 2025-01-08 09:14 | HO.PM.IMPN ---
Subjective Subjective Date of Service: 01/08/25 Interval History: f/u on acute blood loss anemia new afib with rvr HR is controlled, no sings of bleeding EGD is postponed until tomorrow by anesthesia and gi no bleeding H/H is better and steady Physical Exam Exam: Exam: General: AO X 3, no acute distress Resp: CTA bilateral CVS: S1,S2,RRR, no leg edema GI: +BS, NT, no distention Skin: No rash Neuro: motor grossly intact Psych: appropriate affect Vital Signs: Vital Signs: Last Vital Signs Temp 97.1 F 01/08/25 07:30 Pulse 78 01/08/25 07:30 Resp 20 01/08/25 07:30 BP 171/86 H 01/08/25 07:30 Pulse Ox 96 01/08/25 07:30 O2 Del Method Room Air 01/08/25 07:30 O2 Flow Rate 2 01/06/25 04:00 BMI result Body Mass Index 20.7 Objective Data Active Medications Acetaminophen (Acetaminophen 325 Mg Tablet) 650 mg PO Q6H PRN PRN Reason: Pain, Mild 1-3,fever,headache Last Admin: 01/07/25 01:13 Dose: 650 mg Documented By: INGRID Albuterol Sulfate (Albuterol Sulfate 90 Mcg 8 Gm Inhaler) 2 puff INHALE Q4H PRN PRN Reason: shortness of breath or wheezing Amlodipine Besylate (Amlodipine Besylate 5 Mg Tablet) 5 mg PO DAILY [facility]; Protocol Last Admin: 01/08/25 07:34 Dose: 5 mg Documented By: GODWIN Calcium Carbonate (Calcium Carbonate 750 Mg Tab.Chew) 750 mg PO Q4H PRN PRN Reason: Heartburn Cyanocobalamin (Cyanocobalamin (Vitamin B-12) 1,000 Mcg Tablet) 1,000 mcg PO DAILY [facility] Last Admin: 01/08/25 07:34 Dose: 1,000 mcg Documented By: GODWIN Ferrous Sulfate (Ferrous Sulfate 324 Mg Tablet.) 324 mg PO BID [facility] Last Admin: 01/08/25 07:35 Dose: 324 mg Documented By: GODWIN Folic Acid (Folic Acid 1 Mg Tablet) 1 mg PO DAILY [facility] Last Admin: 01/08/25 07:35 Dose: 1 mg Documented By: GODWIN Magnesium Hydroxide (Milk Of Magnesia 30 Ml Oral.Susp) 30 ml PO DAILY PRN PRN Reason: Constipation Melatonin (Melatonin 3 Mg Tablet) 6 mg PO BEDTIME PRN PRN Reason: Insomnia Last Admin: 01/07/25 01:12 Dose: 6 mg Documented By: INGRID Metoprolol Tartrate (Metoprolol Tartrate 50 Mg Tablet) 50 mg PO BID [facility]; Protocol Last Admin: 01/08/25 07:34 Dose: 50 mg Documented By: GODWIN Omeprazole (Omeprazole 20 Mg Capsule.Dr) 20 mg PO DAILY@0630 [facility] Last Admin: 01/08/25 06:20 Dose: Not Given Documented By: MIKE Non-Admin Reason: Patient Refused Ondansetron HCl (Ondansetron Hcl 4 Mg/2 Ml Vial) 4 mg IVPUSH Q8H PRN PRN Reason: Nausea and Vomiting Pravastatin Sodium (Pravastatin Sodium 40 Mg Tablet) 40 mg PO DAILY [facility] Last Admin: 01/08/25 07:34 Dose: 40 mg Documented By: GODWIN Ropinirole HCl (Ropinirole Hcl 2 Mg Tablet) 2 mg PO TID PRN PRN Reason: Restless Leg(S) Last Admin: 01/07/25 08:27 Dose: 2 mg Documented By: GODWIN Sodium Chloride (0.9 % Sodium Chloride Flush 3 Ml Syringe) 3 ml IVFLUSH QSHIFT [facility] Last Admin: 01/08/25 07:35 Dose: 3 ml Documented By: GODWIN Vitamin D (Cholecalciferol (Vitamin D3) 25 Mcg Tablet) 125 mcg PO DAILY [facility] Last Admin: 01/08/25 07:35 Dose: 125 mcg Documented By: GODWIN Labs 01/06/25 10:13 01/06/25 10:13 Labs: Laboratory Results - last 24 hr 01/06/25 10:13 MCV 71.6 L MCH 22.0 L MCHC 30.8 L RDW 21.5 H Plt Count 772 H MPV 8.9 L Absolute Nucleated RBC 0.050 H Nucleated RBC % (auto) 0.3 H Anion Gap 15 Estim Creat Clear Calc 50.7 Estimated GFR > 60 Random Glucose 93 Calcium 8.3 L D Microbiology Microbiology Results: Microbiology 01/04/25 14:10 Blood Culture - Preliminary Blood - Venous No growth after 48 hours. 01/04/25 14:10 Blood Culture - Preliminary Blood - Venous No growth after 48 hours. Assessment and Plan (1) Anemia: Status: Acute (2) Iron deficiency anemia: Status: Acute (3) Afib: Status: Acute Plan 79-year-old female with pertinent history of duodenal AVMs, rheumatoid arthritis, pseudogout, hypertension, iron-deficiency anemia, COPD not on home oxygen who was brought to the emergency department for evaluation of dyspnea. Acute, severe symptomatic anemia on chronic iron-deficiency anemia, Hgb of 4 transfused 3 units of rbcs, hemoglobin now 10 and stable the last 2 days continue monitoring For EGD scheduled for tuesday 01/09 Acute HFpEF, suspect high output heart failure from anemia. Presently appear compensated No longer on IV Lasix Seen by cardio echo show pericardial effusion a Pericardial effusion: reviewed by cardiology with the following assessment and recommendation: Pericardial effusion reviewed on echocardiogram and no more than moderate. No evidence of tamponade physiology. She did have some atrial fibrillation but currently back in sinus rhythm. May use some beta-blockers to prevent recurrence. Not suitable for anticoagulation in the setting due to severe anemia. With regard to endoscopy workup, may proceed as planned. AFib with RVR, new onset, now rate control HR in 60, possibly precipitated by anemia nl TSH hold anticoagulation in light of severe anemia needing transfusionn, but may be indicated depending on EGD findings metoprolol as needed to control HR Mild metabolic acidosis, appear chronic or related to anemia, resolved Leukocytosis, ?leukemoid reaction. Given empiric ceftriaxone in the ER but not condined. Blood cultures pending. No fever, pro calcitonin 1.23..Has trended down Rheumatoid arthritis: Continue anti-inflammatories COPD: No exacerbation DVT prophylaxis: Mechanical, early ambulation Full code. Discussed with patient at bedside Quality Stroke Does the patient have a stroke diagnosis?: No VTE Prior VTE?: No VTE Risk Level:: Medical - moderate - high VTE Device Contraindication: N/A - Device Ordered VTE Drug Contraindication: Treatment Not Indicated
[2025-01-09] VITALS (10 sets, daily range): BP systolic 92–172; BP diastolic 46–80; PULSE 61–90; RESP 12–20; TEMP 36.2–36.9; O2SAT 94–100
[2025-01-09 09:04] LABS: Hematocrit 35.6 % (37.0-47.0); Hemoglobin 11.1 g/dl (12.0-16.0); Mean Corpuscular HGB Conc 31.2 g/dl (31.0-35.0); Mean Corpuscular Hemoglobin 22.4 pg (27.0-33.0); Mean Corpuscular Volume 71.8 fL (80.0-98.0); NRBC Abs Auto 0.000 X10*3/uL (0.0-0.012); NRBC Pct Auto 0.0 /100WBC (0.0-0.2); Platelet Count 560 X10*3/uL (160-400); Red Blood Count 4.96 X10*6/uL (4.20-5.50); White Blood Count 8.5 X10*3/uL (4.8-10.8)
[2025-01-09 09:20] LABS: Alanine Aminotransferase 9 U/L (0-31); Albumin Level 3.1 g/dL (3.5-5.0); Alkaline Phosphatase 66 U/L (39-117); Anion Gap 10 (12-20); Aspartate Amino Transferase 23 U/L (5-31); Blood Urea Nitrogen 13 mg/dL (9-16); Calcium 8.4 mg/dL (8.4-10.2); Carbon Dioxide 27 mmol/L (22-29); Chloride 105 mmol/L (96-108); Creatinine Clr Calc Pharmacy 62.5; Estimated Glomerular Filt Rate > 60; Potassium 4.0 mmol/L (3.3-5.1); Sodium 138 mmol/L (135-145); Total Protein 6.5 g/dL (6.5-8.0)
[2025-01-09] MEDS: 0.9 % Sodium Chloride Flush 3 ML SYRINGE IVFLUSH ×3 (09:48→21:59)
--- NOTE | 2025-01-09 11:35 | P.PNGI_ITS ---
Subjective Subjective Date of Service: 01/09/25 Interval History: seen at bedside. reports improvement in chest pressure and shortness of breath. H/H has improved to 11 today! No other issues. Critical Care Time (minutes): 0 Physical Exam 2 Exam: Exam: no overt resp distress Abdomen soft, nondistended Alert and oriented x3 Vital Signs: Vital Signs: Last Vital Signs Temp 98.4 F 01/09/25 11:08 Pulse 82 01/09/25 11:08 Resp 18 01/09/25 11:08 BP 137/68 01/09/25 11:08 Pulse Ox 97 01/09/25 11:08 O2 Del Method Room Air 01/09/25 11:08 O2 Flow Rate 2 01/06/25 04:00 BMI result Body Mass Index 20.7 Objective Data Labs 01/09/25 08:53 01/09/25 08:53 Labs: Laboratory Results - last 24 hr 01/09/25 08:53 WBC 8.5 RBC 4.96 Hgb 11.1 L Hct 35.6 L MCV 71.8 L MCH 22.4 L MCHC 31.2 RDW 22.9 H Plt Count 560 H D MPV 8.4 L Absolute Nucleated RBC 0.000 Nucleated RBC % (auto) 0.0 Sodium 138 Potassium 4.0 Chloride 105 Carbon Dioxide 27 Anion Gap 10 L BUN 13 Creatinine 0.56 Estim Creat Clear Calc 62.5 Estimated GFR > 60 Random Glucose 84 Calcium 8.4 Total Bilirubin 0.5 AST 23 ALT 9 Alkaline Phosphatase 66 Total Protein 6.5 Albumin 3.1 L Microbiology Microbiology Results: Microbiology 01/04/25 14:10 Blood - Venous Blood Culture - Preliminary No growth after 48 hours. 01/04/25 14:10 Blood - Venous Blood Culture - Preliminary No growth after 48 hours. Procedures Date of Service Date of Service: 01/09/25 Progress Note: A&P Assessment and plan (1) Paroxysmal atrial fibrillation: Status: Acute (2) Pericardial effusion: Status: Acute (3) Microcytic hypochromic anemia: Status: Acute (4) Iron deficiency anemia: Status: Acute (5) Severe anemia: Status: Acute Plan Seen at bedside. Doing much better today from respiratory standpoint. Cardiology note reviewed. 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 Quality Stroke Does the patient have a stroke diagnosis?: No VTE Prior VTE?: No VTE Risk Level:: Medical - moderate - high VTE Device Contraindication: N/A - Device Ordered VTE Drug Contraindication: Treatment Not Indicated
--- NOTE | 2025-01-09 12:43 | PC.NURSE ---
patient has a 22g iv in RIGHT forearm placed risk mgr to sss. IV is patent and flushes well
--- NOTE | 2025-01-09 12:45 | HO.PM.IMPN ---
Subjective Subjective Date of Service: 01/09/25 Interval History: Pt seen this am, awaiting enteroscopy today, NPO for now, denies any sx Review of Systems -ve for all sx Physical Exam Exam: Exam: General: AO X 3, no acute distress Resp: CTA bilateral, on RA CVS: S1,S2,RRR, no leg edema GI: +BS, NT, no distention Skin: No rash Neuro: motor grossly intact Psych: appropriate affect Vital Signs: Vital Signs: Last Vital Signs Temp 98.0 F 01/09/25 12:41 Pulse 71 01/09/25 12:41 Resp 16 01/09/25 12:41 BP 123/69 01/09/25 12:41 Pulse Ox 96 01/09/25 12:41 O2 Del Method Room Air 01/09/25 12:41 O2 Flow Rate 2 01/06/25 04:00 BMI result Body Mass Index 20.7 Objective Data Active Medications Acetaminophen (Acetaminophen 325 Mg Tablet) 650 mg PO Q6H PRN PRN Reason: Pain, Mild 1-3,fever,headache Last Admin: 01/07/25 01:13 Dose: 650 mg Documented By: INGRID Albuterol Sulfate (Albuterol Sulfate 90 Mcg 8 Gm Inhaler) 2 puff INHALE Q4H PRN PRN Reason: shortness of breath or wheezing Amlodipine Besylate (Amlodipine Besylate 5 Mg Tablet) 5 mg PO DAILY [facility]; Protocol Last Admin: 01/09/25 10:40 Dose: 5 mg Documented By: WINIFRED Calcium Carbonate (Calcium Carbonate 750 Mg Tab.Chew) 750 mg PO Q4H PRN PRN Reason: Heartburn Cyanocobalamin (Cyanocobalamin (Vitamin B-12) 1,000 Mcg Tablet) 1,000 mcg PO DAILY [facility] Last Admin: 01/09/25 10:35 Dose: Not Given Documented By: WINIFRED Non-Admin Reason: NPO Ferrous Sulfate (Ferrous Sulfate 324 Mg Tablet.) 324 mg PO BID [facility] Last Admin: 01/09/25 10:35 Dose: Not Given Documented By: WINIFRED Non-Admin Reason: NPO Folic Acid (Folic Acid 1 Mg Tablet) 1 mg PO DAILY [facility] Last Admin: 01/09/25 10:36 Dose: Not Given Documented By: WINIFRED Non-Admin Reason: NPO Magnesium Hydroxide (Milk Of Magnesia 30 Ml Oral.Susp) 30 ml PO DAILY PRN PRN Reason: Constipation Melatonin (Melatonin 3 Mg Tablet) 6 mg PO BEDTIME PRN PRN Reason: Insomnia Last Admin: 01/07/25 01:12 Dose: 6 mg Documented By: INGRID Metoprolol Tartrate (Metoprolol Tartrate 50 Mg Tablet) 50 mg PO BID [facility]; Protocol Last Admin: 01/09/25 10:42 Dose: 50 mg Documented By: WINIFRED Ondansetron HCl (Ondansetron Hcl 4 Mg/2 Ml Vial) 4 mg IVPUSH Q8H PRN PRN Reason: Nausea and Vomiting Pantoprazole Sodium (Pantoprazole Sodium 40 Mg/10 Ml Vial) 40 mg IVPUSH BID@0630,1630 [facility] Last Admin: 01/09/25 09:54 Dose: 40 mg Documented By: WINIFRED Pravastatin Sodium (Pravastatin Sodium 40 Mg Tablet) 40 mg PO DAILY [facility] Last Admin: 01/09/25 10:36 Dose: Not Given Documented By: WINIFRED Non-Admin Reason: NPO Ropinirole HCl (Ropinirole Hcl 2 Mg Tablet) 2 mg PO TID PRN PRN Reason: Restless Leg(S) Last Admin: 01/07/25 08:27 Dose: 2 mg Documented By: GODWIN Sodium Chloride (0.9 % Sodium Chloride Flush 3 Ml Syringe) 3 ml IVFLUSH QSHIFT [facility] Last Admin: 01/09/25 09:48 Dose: 3 ml Documented By: WINIFRED Vitamin D (Cholecalciferol (Vitamin D3) 25 Mcg Tablet) 125 mcg PO DAILY [facility] Last Admin: 01/09/25 10:35 Dose: Not Given Documented By: WINIFRED Non-Admin Reason: NPO Labs 01/09/25 08:53 01/09/25 08:53 Labs: Laboratory Results - last 24 hr 01/09/25 08:53 MCV 71.8 L MCH 22.4 L MCHC 31.2 RDW 22.9 H Plt Count 560 H D MPV 8.4 L Absolute Nucleated RBC 0.000 Nucleated RBC % (auto) 0.0 Anion Gap 10 L Estim Creat Clear Calc 62.5 Estimated GFR > 60 Random Glucose 84 Calcium 8.4 Total Bilirubin 0.5 AST 23 ALT 9 Alkaline Phosphatase 66 Total Protein 6.5 Albumin 3.1 L Assessment and Plan (1) Anemia: Status: Acute (2) Pericardial effusion: Status: Acute (3) Afib: Status: Acute (4) COPD (chronic obstructive pulmonary disease): Status: Acute (5) Hypertension: Status: Acute (6) Rheumatoid arthritis: Status: Acute Plan 79-year-old female with pertinent history of duodenal AVMs, rheumatoid arthritis, pseudogout, hypertension, iron-deficiency anemia, COPD not on home oxygen who was brought to the emergency department for evaluation of dyspnea. Acute, severe symptomatic anemia on chronic iron-deficiency anemia, Hgb of 4 transfused 3 units of rbcs, hemoglobin now 10 and stable the last 2 days continue monitoring scheduled for enteroscopy today Hb is stable IV protonix HTN: cont amlodipine Acute HFpEF, suspect high output heart failure from anemia. Presently appear compensated No longer on IV Lasix Seen by cardio echo show pericardial effusion resolved Pericardial effusion: reviewed by cardiology with the following assessment and recommendation: Pericardial effusion reviewed on echocardiogram and no more than moderate. No evidence of tamponade physiology. She did have some atrial fibrillation but currently back in sinus rhythm. May use some beta-blockers to prevent recurrence. Not suitable for anticoagulation in the setting due to severe anemia. AFib with RVR, new onset, now rate control HR in 60, possibly precipitated by anemia nl TSH hold anticoagulation in light of severe anemia needing transfusion, but may be indicated depending on EGD findings metoprolol bid Mild metabolic acidosis, appear chronic or related to anemia, resolved Leukocytosis, ?leukemoid reaction. Given empiric ceftriaxone in the ER but not cont. Blood cultures NTD. No fever, pro calcitonin 1.23 resolved Rheumatoid arthritis: stable COPD: No exacerbation, on RA DVT prophylaxis: Mechanical, early ambulation Full code. Discussed with patient at bedside OMN: enteroscopy today Quality Stroke Does the patient have a stroke diagnosis?: No VTE Prior VTE?: No VTE Risk Level:: Medical - moderate - high VTE Device Contraindication: N/A - Device Ordered VTE Drug Contraindication: Treatment Not Indicated
--- NOTE | 2025-01-09 13:44 | P.OP_ITS ---
Operative Note Operative Note Date of Service: 01/09/25 Narrative: Procedure: Push enteroscopy Endoscopist: Sonja Segura MD Indication: Severe anemia, known small bowel AVMs Anesthesia Provider: Lam Sifuentes CRNA Anesthesia Type: MAC Instrument: [id number] EGD Procedure:?? The procedure, indications, preparation and potential complications were reviewed with the patient, who indicated understanding and gave written informed consent to proceed. A physical exam was performed. The endoscope was introduced through the mouth, and advanced to the proximal jejunum. The mucosa was carefully examined on slow withdrawal of the endoscope. The patient tolerated the procedure well. There were no immediate complications.? ? EGD Findings:? * Esophagus:? Normal mucosa noted in the entire esophagus. The Z line was at 38 cm displaced by a small hiatal hernia. * Stomach:? Normal mucosa was noted in the stomach. Retroflexion was performed in the cardia demonstrating hill grade III hiatal hernia * Duodenum:? Normal mucosa was noted in the whole of the examined duodenum. Numerous AVMs noted in the distal duodenum measuring 2-7 mm. 2 of these were spontaneously oozing. Straight fire catheter was used to apply APC at 2/20 setting for ablation of all the AVMs that could be visualized. * Jejunum: Normal mucosa was noted to the extent examined. Numerous AVMs were again noted measuring 3-6 mm. No spontaneous bleeding noted. Straight fire catheter was used to apply APC at 2/20 setting for ablation. ? EGD Impressions:? * Normal esophagus * Hiatal hernia * Normal stomach * Small bowel angiodysplasia (APC) ?? Recommendations:?? * Likely has numerous AVMs in her remaining small bowel as well, as demonstrated on previously performed VCE. * Recommend CBC and ferritin q4w. Venofer 200 mg IV outpatient as needed, guided by labs. * Avoid NSAIDs. Above has been reviewed with the patient.
[2025-01-09] MEDS: Ferrous Sulfate 324 MG TABLET.DR PO (21:57)
[2025-01-10] VITALS: BP 143/73; PULSE 70; RESP 16; TEMP 37.1; O2SAT 97
[2025-01-10 03:14] VITALS: BP 153/69; PULSE 74; RESP 16; TEMP 36.6; O2SAT 98
[2025-01-10 07:22] VITALS: BP 149/86; PULSE 85; RESP 17; TEMP 36.7; O2SAT 97
--- NOTE | 2025-01-10 08:14 | HO.POSTANES ---
Post Anesthesia Evaluation Post Anesthesia Evaluation Date of Service: 01/10/25 Vital Signs: Vital Signs Temp Pulse Resp BP Pulse Ox O2 Del Method 01/10/25 07:22 98.1 F 85 17 149/86 H 97 Room Air 01/10/25 03:14 97.8 F 74 16 153/69 H 98 Room Air 01/10/25 00:00 98.7 F 70 16 143/73 H 97 Room Air Anesthesia: Monitored Mental Status: Awake Pain Control: Satisfactory Nausea/Vomiting: None Hydration: Adequate Anesthesia-Related Issues: No Anes. Related Issues
[2025-01-10] MEDS: 0.9 % Sodium Chloride Flush 3 ML SYRINGE IVFLUSH (09:26)
[2025-01-10 09:27] VITALS: BP 116/66
[2025-01-10 09:28] VITALS: BP 116/66; PULSE 85
[2025-01-10] MEDS: Ferrous Sulfate 324 MG TABLET.DR PO (09:28)
[2025-01-10 11:04] VITALS: BP 128/62; PULSE 87; RESP 18; TEMP 36.4; O2SAT 98
--- NOTE | 2025-01-10 12:19 | P.DS_ITS ---
DS: Providers Provider Date of Service: 01/10/25 Date of admission: 01/04/25 14:23 Date of discharge: 01/10/25 Primary care physician: Burke Vazquez PA-C Consults: 01/04/25 14:22 Consult to Gastroenterology Routine Consulting Provider: Sonja Segura Reason for consultation: symptomatic anemia 01/04/25 15:53 Consult to Cardiology Routine Consulting Provider: [facility] Reason for consultation: AFib with RVR, pericardial effusion Has provider been notified: Yes DS: Diagnosis Discharge Diagnosis (1) Paroxysmal atrial fibrillation: Status: Acute (2) Pericardial effusion: Status: Acute (3) Microcytic hypochromic anemia: Status: Acute (4) Iron deficiency anemia: Status: Acute (5) Severe anemia: Status: Acute DS: Summary Hospital Course Hospital Course: History and physical as per admitting provider. This has a 79-year-old female with pertinent history of duodenal AVMs, rheumatoid arthritis, pseudogout, hypertension, iron-deficiency anemia, COPD not on home oxygen who was brought to the emergency department for evaluation of dyspnea. Patient is a poor historian. She states she has not been feeling well for the last 1-2 weeks. Unable to specify details. Denies abdominal pain. No hematemesis, melena, or hematochezia that she knows of. EMS was called by neighbors as apparently she has been declining recently. Patient's feet were covered in feces. Patient does have a dyspnea which has been worsening over the last 1 week. Minimal cough. Unable to obtain complete review of systems due to patient being a poor historian. In the emergency department, hemoglobin found to be 4.6 and WBC 30. Imaging with cardiomegaly and moderate sized pericardial effusion. Also with pleural effusions and mild interstitial pulmonary edema. BNP 576. Also patient went into AF with RVR in the ER and was given 10 mg IV diltiazem Acute, severe symptomatic anemia on chronic iron-deficiency anemia,Treated with IV protonix, Hgb of 4 , transfused 3 units of rbcs, hemoglobin now 11 and stable. EGD showed normal esophagus, hiatal hernia, normal stomach, small bowel angiodysplasia with numerous AVMs in remaining small bowel. Plan will be for patient to receive iron infusions outpatient, check CBC and ferritin every 4 weeks and iron infusion can be determined by that. We will not resume any anticoagulation at this time, she is in sinus rhythm and she will continue beta- sheri. HTN cont amlodipine Acute HFpEF, suspect high output heart failure from anemia. treated with IV lasix. resolved Pericardial effusion: reviewed by cardiology with the following assessment and recommendation: Pericardial effusion reviewed on echocardiogram and no more than moderate. No evidence of tamponade physiology. She did have some atrial fibrillation but currently back in sinus rhythm. May use some beta-blockers to prevent recurrence. Not suitable for anticoagulation in the setting due to severe anemia. AFib with RVR, new onset, now rate control HR in 60, possibly precipitated by anemia. normall TSH. Anticoagulation held in light of severe anemia needing transfusion. Continue metoprolol bid Mild metabolic acidosis, appear chronic or related to anemia, resolved Leukocytosis, ?leukemoid reaction. Given empiric ceftriaxone in the ER but not cont. Blood cultures NTD. No fever, pro calcitonin 1.23 resolved Rheumatoid arthritis: stable COPD: No exacerbation, on RA Time Attestation Discharge Coordination Time (in mins): 46 Quality: Safe Use of Opioids Does Pt have an Active Cancer Diagnosis on the Problem List?: No Quality: Stroke Does the patient have a stroke diagnosis?: No Physical Exam Exam: Exam: Appearing in no acute distress head is normocephalic atraumatic eyes pupils are PERRLA sclera is anicteric mouth throat mucous membranes are intact and moist neck is supple no lymphadenopathy, no JVD noted lung sounds are clear to auscultation heart regular rate rhythm, clear S1, S2 positive bowel sounds, abdomen is soft, nontender neuro patient is alert x3, no focal deficits Vital Signs: Vital Signs: Last Vital Signs Temp 97.6 F 01/10/25 11:04 Pulse 87 01/10/25 11:04 Resp 18 01/10/25 11:04 BP 128/62 01/10/25 11:04 Pulse Ox 98 01/10/25 11:04 O2 Del Method Room Air 01/10/25 11:04 O2 Flow Rate 2 01/06/25 04:00 BMI result Body Mass Index 20.7 DS: Data Data Completed and Pending Completed studies during hospitalization [Text1]: Procedures Destruction of Duodenum, Via Natural or Artificial Opening Endoscopic (08/31/24) Excision of Duodenum, Via Natural or Artificial Opening Endoscopic, Diagnostic (08/31/24) Excision of Stomach, Pylorus, Via Natural or Artificial Opening Endoscopic, Diagnostic (08/31/24) Insertion of Pacemaker Lead into Right Atrium, Percutaneous Approach (09/21/24) Insertion of Pacemaker Lead into Right Ventricle, Percutaneous Approach (09/21/24) Insertion of Pacemaker, Dual Chamber into Chest Subcutaneous Tissue and Fascia, Open Approach (09/21/24) Transfusion of Nonautologous Red Blood Cells into Peripheral Vein, Percutaneous Approach (08/31/24) Discharge Plan Discharge Anticipated Discharge Date/Time: 01/10/25 12:09 Patient Disposition: Home Health Service Discharge Diagnosis: Acute on chronic iron-deficiency anemia Acute heart failure with preserved ejection fraction Atrial fibrillation with rapid ventricular response Referrals: Burke Vazquez PA-C [Primary Care Provider, Internal Medicine] - 1 Week Discharge Medications: New metoprolol tartrate 50 mg Tablet 50 mg PO BID Qty: 60 0RF Protocol: Hold for SBP/HR < HOLD for SBP < : 90 HOLD for HR < : 60 Continued cholecalciferol (vitamin D3) 125 mcg (5,000 unit) capsule 125 mcg PO DAILY Qty: 90 1RF omeprazole 20 mg capsule,delayed release(DR/EC) 20 mg PO DAILY@0630 amlodipine 5 mg tablet 5 mg PO DAILY ropinirole 1 mg tablet 2 mg PO TID PRN (Reason: Restless Leg(S)) lidocaine [Lidocaine Pain Relief] 4 % adhesive patch,medicated 1 patch transdermal DAILY PRN (Reason: Pain) Protocol: Apply to: Apply to: affected area acetaminophen 325 mg tablet 650 mg PO Q6H PRN (Reason: pain) Qty: 60 1RF pravastatin 40 mg tablet 40 mg PO DAILY 90 Days Qty: 90 1RF albuterol sulfate 90 mcg/actuation HFA aerosol inhaler 2 puff inhalation Q4-6H PRN (Reason: shortness of breath or wheezing) 30 Days Qty: 8.5 4RF folic acid 1 mg tablet 1 mg PO DAILY Qty: 90 3RF cyanocobalamin (vitamin B-12) 1,000 mcg lozenge 1,000 mcg SUBLINGUAL DAILY Qty: 90 4RF ferrous sulfate [Feosol] 325 mg (65 mg iron) tablet 325 mg PO BID 30 Days Qty: 60 2RF (DME) blood pressure monitor Kit See Rx Instructions .Route Qty: 1 0RF Rx Instructions: check bp twice a week and when not feeling well Discharge Orders: Discharge Order (Routine); Ordered 01/10/25 Ordered By: Daniela Lowe Diet: Advance to usual diet Activity on Discharge: As tolerated Stand Alone Forms: Patient Portal Discharge page Print Language: Libyan Other Ambulatory Orders: Complete Blood Count no Diff (Q4W) Timeframe: 20250131 Facility: [facility] - Location: Laboratory Ordered By: Daniela Lowe Ferritin (Q4W) Timeframe: 20250131 Facility: [facility] - Location: Laboratory Ordered By: Daniela Lowe Ferritin (Q4W) Timeframe: [id number] Facility: [facility] - Location: Laboratory Ordered By: Daniela Lowe Ferritin (Q4W) Timeframe: [id number] Facility: [facility] - Location: Laboratory Ordered By: Daniela Lowe Ferritin (Q4W) Timeframe: 20250425 Facility: [facility] - Location: Laboratory Ordered By: Daniela Lowe Care Plan Goals: Avoid NSAIDs, CBC and ferritin every 4 weeks, iron infusions weekly outpatient if warranted by labs Health Concerns: Acute on chronic iron-deficiency anemia Acute heart failure with preserved ejection fraction Atrial fibrillation with rapid ventricular response Plan of Treatment: Follow up primary care provider as needed Take all medications as prescribed Assessment: See discharge summary
--- NOTE | 2025-01-10 12:32 | MHC.CM.PN ---
Patient has been medically cleared for dc to home today, with services. A referral was made to [facility], who has been made aware of today's dc. IMM was addressed with Patient; BAO gave her the original and placed a copy on the chart. CM set up a LYFT for 1:30 for transport to home and RN & DIRECTOR DIGITAL COMMUNICATIONS are aware.
--- NOTE | 2025-01-10 12:45 | P.F2F_ITS ---
Service Date Service Date: 01/10/25 Encounter Date of encounter: 01/10/25 Reasons for Services Signs and symptoms assessed: Acute symptomatic anemia Acute heart failure with preserved ejection fraction New onset atrial fibrillation with rapid ventricular response Reason for care home: other (CBC, ferritin every 4 weeks) Reason for physical therapy: home safety and mobility Homebound: Leaving the home is medically contraindicated at this time without the asist of a device and/or another person due th the listed conditions above and below. Reason homebound: weakness related to hospital stay Certification: Based on the above findings, I certify that this patient is confined to the home and needs intermittent care home care, physical therapy and/or speech therapy, or continues to need occupational therapy. The patient is under my care, and I have initiated the establishment of the plan of care. The patient will be followed by a physician who will periodically review the plan of care. Time Spent With Patient Time: Total time managing care of this patient today ____ minutes.
== END 2025-01-10 13:30 | disposition home health service (06) | DRG 377 ==
LOC: HO.ED 14:27 → HO.EDOVER 14:45 → HO.S3 19:26 → HO.IMC 01-05 13:06
PROVIDERS: Hospitalist; Internal Medicine; Physician Assistant Medical; Admitting Provider Student in an Organized Health Care Education/Training Program; Emergency Provider Emergency Medicine; PCP Physician Assistant; Visit Provider Nurse Practitioner Acute Care
PROC: 0DJ08ZZ Inspection of Upper Intestinal Tract, Via Natural or Artificial Opening Endoscopic (ICD-10-PCS; CPT 43235; principal; 2025-01-09 14:50)
DX: K31.811 Angiodysplasia of stomach and duodenum with bleeding (principal); I50.31 Acute diastolic (congestive) heart failure; D62 Acute posthemorrhagic anemia; E87.22 Chronic metabolic acidosis; M06.9 Rheumatoid arthritis, unspecified; I11.0 Hypertensive heart disease with heart failure; J44.9 Chronic obstructive pulmonary disease, unspecified; I49.5 Sick sinus syndrome; F17.210 Nicotine dependence, cigarettes, uncomplicated; Z71.6 Tobacco abuse counseling; K44.9 Diaphragmatic hernia without obstruction or gangrene; I48.91 Unspecified atrial fibrillation; Z45.018 Encounter for adjustment and management of other part of cardiac pacemaker; Z20.822 Contact with and (suspected) exposure to COVID-19; Z79.899 Other long term (current) drug therapy
CPT/HCPCS: 36415; 71045; 71260; 74177; 80048; 80053; 83540; 83605; 83615; 83735; 83880; 84100; 84145; 84443; 85025; 85027; 85045; 85610; 85730; 86850; 86870; 86900; 86901; 86905; 86920; 86922; 87040; 87635; 93005; 93308; 94640; 97162; 99285; C1889; J0696; J1163; J1610; J1938; J2003; J2470; J2704; J2919; P9016

== ENCOUNTER → 2025-01-04 12:15 | Outpatient (BNV) | payer MEDICARE, SELFPAY | PROVIDERS: Admitting Provider Student in an Organized Health Care Education/Training Program; Emergency Provider Emergency Medicine; Visit Provider Internal Medicine | DX: I48.91 Unspecified atrial fibrillation (principal) | CPT/HCPCS: 93010 ==

== ENCOUNTER → 2025-01-04 12:37 | Outpatient (BNV) | payer MEDICARE, SELFPAY | PROVIDERS: Emergency Provider Emergency Medicine; Visit Provider Radiology Diagnostic Radiology | DX: R10.9 Unspecified abdominal pain (principal); R10.819 Abdominal tenderness, unspecified site; I31.39 Other pericardial effusion (noninflammatory); J90 Pleural effusion, not elsewhere classified; I70.90 Unspecified atherosclerosis; R59.0 Localized enlarged lymph nodes; J44.9 Chronic obstructive pulmonary disease, unspecified; Z95.0 Presence of cardiac pacemaker | CPT/HCPCS: 71045; 71260; 74177 ==

== ENCOUNTER 2025-01-04 14:23 | Outpatient (BNV) | payer MEDICARE, SELFPAY | END 2025-01-05 07:00 | PROVIDERS: Admitting Provider Student in an Organized Health Care Education/Training Program; Emergency Provider Emergency Medicine; Visit Provider Internal Medicine | DX: I31.39 Other pericardial effusion (noninflammatory) (principal) | CPT/HCPCS: 93308 ==

== ENCOUNTER → 2025-01-04 14:23 | Outpatient (BNV) | payer MEDICARE, SELFPAY | PROVIDERS: Admitting Provider Student in an Organized Health Care Education/Training Program; Emergency Provider Emergency Medicine; Visit Provider Student in an Organized Health Care Education/Training Program | DX: D50.9 Iron deficiency anemia, unspecified (principal); I48.91 Unspecified atrial fibrillation | CPT/HCPCS: 99223; 99232; 99239; G0180 ==

== ENCOUNTER → 2025-01-04 14:23 | Outpatient (BNV) | payer MEDICARE, SELFPAY | PROVIDERS: Admitting Provider Student in an Organized Health Care Education/Training Program; Emergency Provider Emergency Medicine; PCP Physician Assistant; Visit Provider Internal Medicine | DX: D50.9 Iron deficiency anemia, unspecified (principal); K55.21 Angiodysplasia of colon with hemorrhage; K44.9 Diaphragmatic hernia without obstruction or gangrene; I48.0 Paroxysmal atrial fibrillation; I48.91 Unspecified atrial fibrillation; I31.39 Other pericardial effusion (noninflammatory); I49.5 Sick sinus syndrome | CPT/HCPCS: 43255; 99223; 99232 ==

== ENCOUNTER → 2025-01-04 14:23 | Outpatient (BNV) | payer MEDICARE, SELFPAY | PROVIDERS: Admitting Provider Student in an Organized Health Care Education/Training Program; Emergency Provider Emergency Medicine; Visit Provider Internal Medicine | DX: I31.39 Other pericardial effusion (noninflammatory) (principal); I48.0 Paroxysmal atrial fibrillation; Z45.018 Encounter for adjustment and management of other part of cardiac pacemaker; D50.9 Iron deficiency anemia, unspecified | CPT/HCPCS: 99233 ==

== ENCOUNTER 2025-01-11 16:21 | Inpatient (IN) | payer MEDICARE, SELFPAY ==
--- OUTSIDE RECORDS SUMMARY | 2022-11-02 11:38 | XMS_ITS | Encounter Summary ---
Author Organization [facility] Address [address] [place] [address] Phone Care Team Providers Care Jailer/Training Officer Name Role Phone Jolynn Jasmine BACK TENDER INSULATION BOARD Primary Care Provider Encounter Details Date Type Department Care Team (Late st Contact Info) Description 11/02/2022 11:38 AM EDT Hospital Encounter [facility] [address] [place] [address] [phone] Annie Rivers, BACK TENDER INSULATION BOARD [address] [place] [address] [email or web address] Social History Tobacco Use Types Packs/Day Years Used Date Smoking Tobacco: Every Day Cigarettes 0.3 58.9 Started: 02/05/1965 Smokeless Tobacco: Never Alcohol Use [...] right hip or pelvis. us Annie Rivers BACK TENDER INSULATION BOARD IMG XR PELVIS Final Resul t documented in this encounter Visit Diagnoses Not on filedocumented in this encounter Care Teams Jailer/Training Officer Relationship Specialty Start Date End Date Jolynn Jasmine NP PCP - General Nurse Practitioner 10/29/22 documented as of this encounter Additional Source Comments The information contained in this document represents components of the legal health record. It is not the complete legal health record.[facility]
--- NOTE | ~2025-01-11 | CT_ITS ---
CLINICAL HISTORY: syncope, dyspnea CT Angiography Chest W Contrast 3D Postprocessing COMPARISON: CR - XR CHEST 1V - 01/11/25 17:[address]/TN/SR - CT CHEST WITH IV CONTRAST - 01/04/25 15:08 EDT FINDINGS: No pulmonary embolism. Ectatic central pulmonary arteries. No thoracic aortic aneurysm or dissection. Trace left pleural effusion with adjacent atelectasis and/or infiltrate. Mild bilateral bronchial wall thickening. Nodule in the right lower lobe measuring 3 mm (series 7, image 74). No pneumothorax. No cardiomegaly. Small pericardial effusion measuring up to 0.4 cm in thickness (previously 2.3 cm). Left-sided pacemaker in place. No pathologically enlarged lymph nodes. No acute fracture. Chronic T3, T6, and T7 compression fractures. Degenerative changes in the spine. Chronic rib fractures. No acute findings in the visualized upper abdomen. IMPRESSION: No pulmonary embolism. Small pericardial effusion, decreased from prior. Trace left pleural effusion with adjacent atelectasis and/or infiltrate. Possible bronchitis. Small right lower lobe pulmonary nodule. No imaging follow-up recommended for low-risk patients. Consider 12 month follow-up CT for high-risk patients per Fleischner Society guidelines. Nonemergent/incidental findings above. This document has been electronically signed by: Waqar Hager MD on 01/11/2025 21:32:44
--- NOTE | ~2025-01-11 | CT_ITS ---
CLINICAL HISTORY: AMS CT head without contrast. COMPARISON: CT head dated 09/19/24 at 21:45 EDT FINDINGS: Mild mucosal thickening present within the sphenoid sinuses. Mastoid air cells are clear. No calvarial fracture. Atherosclerotic intracranial vasculature. No evidence for mass or mass effect. Question small amount of subarachnoid versus intraparenchymal hemorrhage along the anterior right frontal lobe measuring 3 mm (series 3, image 59). No CT evidence of acute infarct. Chronic left basal ganglia infarct, stable. The ventricles are proportional with the degree of moderate global cerebral volume loss without evidence of hydrocephalus. Basilar cisterns are patent. There are periventricular areas of low attenuation compatible with moderate white matter small vessel disease. Posterior fossa appears unremarkable. IMPRESSION: 1. Question small amount of subarachnoid versus intraparenchymal hemorrhage along the anterior right frontal lobe. No associated mass effect. This document has been electronically signed by: Mario Simmons MD on 01/11/2025 18:35:46
--- NOTE | ~2025-01-11 | XR_ITS ---
CLINICAL HISTORY: weakness Single view of the chest. COMPARISON: XR chest dated 09/21/24 at 19:06 EDT FINDINGS: Left-sided cardiac pacemaker. Borderline cardiomegaly. Atherosclerotic thoracic aorta. Hyperinflation. Linear atelectasis versus scarring within the left mid to lower lung. Chronic reticular opacities, similar to prior imaging. No pleural effusion. No pneumothorax. No acute fracture. IMPRESSION: 1. Minimal linear atelectasis versus scarring along the left mid to lower lung. This document has been electronically signed by: Mario Simmons MD on 01/11/2025 17:42:12
--- NOTE | ~2025-01-11 | CT_ITS ---
CLINICAL HISTORY: fall, AMS CT cervical spine without contrast. COMPARISON: CT cervical spine dated 09/19/24 at 21:45 EDT FINDINGS: Grade 1 anterolisthesis of C5 on C6, degenerative and similar to prior imaging. Mild rightward curvature of the lower cervical spine. Vertebral body heights are maintained. No evidence of acute vertebral body injury. Partially visualized increased sclerosis along the superior endplate of T3, similar to prior imaging although incompletely visualized. Skull base and intracranial structures appear normal. Cardiac pacemaker is partially visualized. Mild apical pleural thickening. Calcified plaque present at the carotid bulbs bilaterally. C2-C3: Uncovertebral joint hypertrophy. Mild left neural foraminal narrowing. C3-C4: Facet joint arthrosis. Uncovertebral joint hypertrophy. Mild left neural foraminal narrowing. C4-C5: Facet joint arthrosis. Uncovertebral joint hypertrophy. Mild bilateral neural foraminal narrowing. C5-C6: Facet joint arthrosis. Uncovertebral joint hypertrophy. Kaxvzjli-ti-[id number] left neural foraminal narrowing. C6-C7: Anterior marginal osteophytes. Loss of disc space height. Uncovertebral joint hypertrophy. Facet joint arthrosis. Moderate bilateral neural foraminal narrowing. IMPRESSION: 1. No evidence of acute injury to the cervical spine. 2. Grade 1 anterolisthesis of C5 on C6, degenerative and stable. 3. Moderate multilevel cervical spondylosis. This document has been electronically signed by: Mario Simmons MD on 01/11/2025 18:35:01
--- NOTE | 2025-01-11 16:28 | ECG_ITS ---
Test Reason : weakness Blood Pressure : */* mmHG Vent. Rate : 79 BPM Atrial Rate : 79 BPM P-R Int : 120 ms QRS Dur : 78 ms QT Int : 404 ms P-R-T Axes : 35 45 98 degrees QTcB Int : 463 ms Normal sinus rhythm Minimal voltage criteria for LVH, may be normal variant ( Baldomero product ) ST & T wave abnormality, consider anterior ischemia Abnormal ECG When compared with ECG of 04-Jan-2025 15:27, Normal sinus rhythm has replaced Afib. Precordial T wave changes present Referred By: Alley Ames Electronically Signed By: Atif Torres
[2025-01-11 16:30] VITALS: BP 132/65; BP 140/60; PULSE 68; PULSE 87; RESP 28; O2SAT 97; BMI 18.1
[2025-01-11] MEDS: Lactated Ringers 1,000 ML 999 ML IV (16:38)
--- NOTE | 2025-01-11 16:50 | PC.NURSE ---
79 F presents via EMS with AMS, decreased LOC initially responsive only to painful stimuli but now responsive to verbal stimuli but not answering questions. Pt does sometimes follow commands, will not open eyes and is forceably closing them when attempting to check pupils. RR even and unlabored on RA, was on some O2 for ems but on RA now and satting ok. no visible s/s of pain/discomfort. Pt is pale in color.
[2025-01-11 16:56] LABS: MANUAL DIFF FLAG NO
[2025-01-11 16:59] VITALS: BP 132/65; PULSE 68; RESP 28; TEMP 36.5; O2SAT 97
[2025-01-11 17:11] LABS: Troponin-I High Sensitivity 3.4 ng/L (<3.5-17.0)
[2025-01-11 17:19] LABS: Hematocrit 34.2 % (37.0-47.0); Hemoglobin 10.2 g/dl (12.0-16.0); Imm Gran Abs Auto 0.13 X10*3/uL (0.00-0.03); Imm Gran Pct Auto 1.2 % (0.0-0.4); Lymphocytes Absolute Auto 1.2 X10*3/uL (1.2-4.9); Mean Corpuscular HGB Conc 29.8 g/dl (31.0-35.0); Mean Corpuscular Hemoglobin 22.3 pg (27.0-33.0); Mean Corpuscular Volume 74.8 fL (80.0-98.0); NRBC Abs Auto 0.000 X10*3/uL (0.0-0.012); NRBC Pct Auto 0.0 /100WBC (0.0-0.2); Platelet Count 582 X10*3/uL (160-400); Red Blood Count 4.57 X10*6/uL (4.20-5.50); White Blood Count 10.8 X10*3/uL (4.8-10.8)
--- OUTSIDE RECORDS SUMMARY | 2025-01-11 17:21 | XMS_ITS | Encounter Summary ---
Author Organization [facility] Address [address] [place] [address] Phone Care Team Providers Care Gas Singer Name Role Phone Bradford Bales Primary Care Provider Jennifer Bhagat MD Primary Care Provider [phone] Jolynn Jasmine NP Primary Care Provider Encounter Details Date Type Department Care Team (Latest Contact Info) Description 10/24/2020 Transcribe Orders Virtual Department [address] [place] [address] Jennifer Bhagat MD [address] [place] [address] Cigarette nicotine dependence without complication (Primary Dx) [...] documented as of this encounter Care Teams Gas Singer Relationship Specialty Start Date End Date Bradford Bales PA [address] [place] [address] PCP - General Unknown Provider Specialty 12/26/20 1 Jennifer Bhagat MD [address] [place] [address] PCP - General Family Medicine 02/10/21 10/28/22 Jolynn Jasmine NP [address] [place] [address] PCP - General Nurse Practitioner 10/29/22 documented as of this encounter Additional Source Comments The information contained in this document represents components of the legal health record. It is not the complete legal health record.[facility]
[2025-01-11 17:22] LABS: Venous Blood Gas Refer to POC result
--- OUTSIDE RECORDS SUMMARY | 2025-01-11 17:22 | XMS_ITS | Clinical Summary ---
Author Organization [facility] Address [address] [phone] Phone Care Team Providers Care Marble Carver Name Role Phone Jolynn Jasmine Ally BULK GAS SPECIALIST Primary Care Provider Allergies Active Allergy Reactions [...] to be done April 28, 2021 at [facility] since apparently she is no longer following at [facility] and is following at [facility]. I will give her a follow-up [...] with endocrine surgeon Dr. Cecille Garcia at [facility]. Assessment & Plan (02/05/2021 12:03 PM EDT): [...] MEDICARE REPLACEMENT MEDICARE PART A & B [facility] MEDICARE REPLACEMENT MEDICARE PART A & [place] [address] [address] [place] [address] MEDICARE REPLACEMENT MEDICARE PART A & B [facility] MEDICARE REPLACEMENT MEDICARE PART A & B [facility] MEDICARE REPLACEMENT MEDICARE PART A & B [employer] PPO MEDICARE REPLACEMENT MEDICARE PART A & B MEDICARE PART A & B MEDICARE PART A & B Advance Directives For more information, please contact: [phone] (9AM - 5PM [facility], Wednesday-Wednesday) * Full Code (Latest Code Status on File) Date Activated Date Inactivated Comments 10/03/2022 2:52 AM Question Answer Comments Code Status Confirmed With: Patient Code Status Communicated To: Inpatient Attending Care Teams Marble Carver Relationship Specialty Start Date End Date Jolynn Jasmine NP PCP - General Nurse Practitioner 10/29/22 Additional Source Comments The information contained in this document represents components of the legal health record. It is not the complete legal health record.[facility]
--- OUTSIDE RECORDS SUMMARY | 2025-01-11 17:22 | XMS_ITS | Encounter Summary ---
Author Organization [facility] Address [address] [facility] [address] [place] [address] Phone Care Team Providers Care Forest Fire Control Officer Name Role Phone Bradford Bales Primary Care Provider Jennifer Bhagat MD Primary Care Provider [phone] Jolynn Jasmine NP Primary Care Provider Encounter Details Date Type Department Care Team (Late st Contact Info) Description 10/22/2020 Transcribe Orders Virtual Department [address] [place] [address] Jennifer Bhagat MD [address] [place] [address] [email or web address] Social History Tobacco [...] documented as of this encounter Care Teams Forest Fire Control Officer Relationship Specialty Start Date End Date Bradford Bales PA [address] [place] [id number] PCP - General Unknown Provider Specialty 12/26/20 1 Jennifer Bhagat MD [address] [place] [address] [email or web address] PCP - General Family Medicine 02/10/21 10/28/22 Jolynn Jasmine NP [address] [phone] PCP - General Nurse Practitioner 10/29/22 documented as of this encounter Additional Source Comments The information contained in this document represents components of the legal health record. It is not the complete legal health record.[facility]
[2025-01-11 17:23] LABS: VBG HCO3 22 mmol/L (22-26); VBG O2 % Saturation 100.0 %
[2025-01-11 17:26] LABS: Ammonia 18 umol/L (13-55)
--- NOTE | 2025-01-11 17:29 | ED_ITS ---
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 She comes back with very poor history she was checked on by a close neighbor and they found her in bed unresponsive pale and diaphoretic she was sleepy on arrival no pin point pupils she has slowly come around and now 625pm she is more awake alert and oriented she tells me she was going to the bathroom she felt cold and next thing she knew she was here no pain anywhere, no headaches, she is moving all ext MD complaint: confusion and decreased responsiveness Onset (ago): unknown Timing confirmed by: other Severity: severe Consistency of symptoms: constant Context: unknown Associated symptoms: denies other symptoms Related Data Home Medications ?Medication ?Instructions ?Recorded ?Confirmed omeprazole 20 mg capsule,delayed 20 mg PO DAILY@0630 0 09/19/24 01/11/25 release amlodipine 5 mg tablet 5 mg PO DAILY 01/04/2501/11 lidocaine 4 % topical patch 1 patch transdermal DAILY PRN Pain 01/04/25 01/11/25 (Lidocaine Pain Relief) ropinirole 1 mg tablet 2 mg PO TID PRN Restless Leg (S) 01/04/25 01/11/25 Previous Rx's ?Medication ?Instructions ?Recorded acetaminophen 325 mg tablet 650 mg (2 x 325 mg) PO Q6H PRN 11/23/23 pain #60 tabs albuterol sulfate 90 mcg/actuation 2 puff inhalation Q 4-6H PRN 05/22/24 aerosol inhaler shortness of breath or wheez ing 1 month #8.5 grams blood pressure monitor #1 ea 05/22/24 cyanocobalamin (vitamin B-12) 1,000 mcg sublingual FAUZIA LY #90 ea 05/22/24 1,000 mcg sublingual lozenge ferrous sulfate 325 mg (65 mg 325 mg PO BID 30 days #6 0 tabs 05/22/24 iron) tablet (Feosol) folic acid 1 mg tablet 1 mg PO DAILY #90 tabs 05/22 cholecalciferol (vitamin D3) 125 125 mcg PO DAILY #90 caps 09/18/24 mcg (5,000 unit) capsule pravastatin 40 mg tablet 40 mg PO DAILY 90 days #90 t abs 09/19/24 metoprolol tartrate 50 mg tablet 50 mg PO BID #60 tabs 01/10/25 Allergies Allergy/AdvReac Type Severity Reaction Status Date / Time oxycodone (From OxyContin) Allergy Mild Hives Verified 01/11/25 16:33 Primeperole Allergy Mild Hives & Uncoded 01/11/25 16:33 Swollen legs Review of Systems 2 Review of Systems: ROS unable to be obtained due to altered mental status [facility] [place] Past Medical History Attestation statement: The following information was validated with the patient. 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 Social History Social History Household Members: None Housing: Apartment Are you a primary wound care nurse to a significant other at home: No Do you presently have visiting nurse or other home services: No Unable to assess alcohol history related to: Refusing to respond Alcohol intake: never Comment: Patient at times refusing bed alarm Patient Tobacco Use Status: Current everyday Tobacco user Tobacco use type: Cigarette Cigarette Packs Per Day: 0.5 Cigarettes Per Day: 10.0 Years Smoked: 59 Smoked in Last 30 Days: No e-Cigarette/Vaping Use: Currently Using Second Hand Smoke Exposure: No Use of substances other than those prescribed or required for medical reasons: Refusing to respond Advance Directives: Yes Advance Directives on File: Yes Advance Directives Date on File: 09/10/23 Do you have a plan to hurt others: No Plan service: No Current occupational status: retired 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 Current occupational exposures/hazards: No Cognitive needs: No Hearing needs: No Vision needs: Yes Physical Exam ED Vital Signs: Vital Signs - 24 hr 01/11/25 16:30 01/11/25 16:59 01/11/25 18:45 Temperature 97.7 F Pulse Rate 68 68 79 Respiratory Rate 28 H 28 H 17 Blood Pressure 132/65 132/65 130/66 Pulse Oximetry 97 97 98 Oxygen Delivery Method Room Air Room Air Room Air Oxygen Flow Rate 01/11/25 21:30 01/11/25 21:48 01/11/25 21:49 Temperature 97.6 F Pulse Rate 86 147 H 144 H Respiratory Rate 24 H Blood Pressure 149/74 H 146/76 H Pulse Oximetry 100 Oxygen Delivery Method Nasal Cannula Oxygen Flow Rate 2 BMI result Body Mass Index 18.1 Appearance: Alert. Oriented X1. Mild acute distress. Eyes: Pupils equal, round and reactive to light. ENT: Pharynx normal. atrauamatic Neck: Normal inspection. Neck supple. CVS: Normal heart rate and rhythm. Pulses normal. Respiratory: No respiratory distress. Breath sounds normal. Abdomen: Soft and nontender. does not grimace or maon Skin: Skin warm and dry. pale skin color. Normal skin turgor. Extremities: No lower extremity edema. No calf ttp Neuro: Oriented X 1. No motor deficit. No sensory deficit. moves all ext as asked Course Course Course Narrative: 625pm tells me she remembers going to the bathroom and woke up here no preceding symptoms of CP/SOB, dizziness. She denies GIB at home. States she only felt cold Reevaluation(s) Reevaluation #1: 725pm Dr. Mckeon from ICU - no bleed that would warrant ICU level of care at this time could discuss images with NSGY at this time but he does not see a bleed on the imaging at this time recommends I also have NSGY review as he is not clear where the bleed is. Patient is GCS 15 at this time BP 130s systolic 732pm reviewed images by Darrick from [facility] at the [facility] states there is no bleed on imaging this is overread by radiology and there is no SAH or IPH. Reevaluation #2: afib with RVR 948pm given IV dilt x 1 and PO metoprolol missed night dose of metoprolol Medications Administered Discontinued Medications Generic Name Dose Route Start Last Admin Trade Name Freq PRN Reason Stop Dose Admin Ceftriaxone Sodium 1 gm 01/11/25 16:28 01/11/25 16:50 Ceftriaxone Sodium 1 Gm Vial IVPUSH 01/11/25 16:29 1 gm ONCE ONE Administration Diltiazem HCl 10 mg 01/11/25 21:44 01/11/25 21:49 Diltiazem Hcl 50 Mg/10 Ml Vial IVPUSH 01/11/25 21:45 10 mg ONCE ONE Administration Lactated Ringer's 1,000 mls @ 999 mls/hr 01/11/25 16:28 01/11/25 17:39 Lr IV 01/11/25 17:28 Infused .Q1H1M ONE Infusion Iohexol 100 ml 01/11/25 20:16 01/11/25 20:16 Iohexol 350 Mg/Ml 100 Ml Infus..Btl IV 01/11/25 20:17 65 ml ONCE ONE Administration Metoprolol Tartrate 25 mg 01/11/25 21:44 01/11/25 21:48 Metoprolol Tartrate 25 Mg Tablet PO 01/11/25 21:45 25 mg ONCE ONE Administration Protocol Medical Decision Making Medical Decision Making MDM Narrative: 79 yo female with PMH of UGIB, anemia, pneumonia, afib not on thinners due to bleeding risk, recent pericardial effusion - no drainage done, HLD, COPD not on home O2 now here able to move all ext but undifferentiated AMS - will need infectious work up, anemia, CT scan of head for ICH, PE work up given recent admission. Anticipate admission. Close monitoring for VS as well. Differential Diagnosis Differential Diagnoses: The differential diagnosis associated with the presentation includes UTI, pneumonia, metabolic derangement, ICH, VTE, Admission/Observation Consideration of admission/observation: Escalation of care including admission/observation considered admit for further workup Consult Healthcare Provider Management of the patient was discussed with: Hospitalist (will admit) and Before [employer] Babysitter 725pm Dr. Mckeon from ICU - no bleed that would warrant ICU level of care at this time could discuss images with NSGY at this time. Patient is GCS 15 at this time BP 130s systolic 732pm reviewed images by Darrick from [facility] at the [facility] states there is no bleed on imaging this is overread Lab Data [facility] Lab Attestation statement: I reviewed the patient's lab results. 01/11/25 16:43 01/11/25 17:11 Labs: Lab Results 01/11/25 01/11/25 01/11/25 Range/Units 16:43 17:10 17:11 WBC 10.8 (4.8-10.8) X10*3/uL RBC 4.57 (4.20-5.50) X10*6/uL Hgb 10.2 L (12.0-16.0) g/dl Hct 34.2 L (37.0-47.0) % MCV 74.8 L (80.0-98.0) fL MCH 22.3 L (27.0-33.0) pg MCHC 29.8 L (31.0-35.0) g/dl RDW 23.6 H (11.0-16.0) % Plt Count 582 H (160-400) X10*3/uL MPV 8.8 L (9.4-12.3) fL Immature Gran % (Auto) 1.2 H (0.0-0.4) % Neut % (Auto) 78.7 H (45-73) % Lymph % (Auto) 11.1 L (20-40) % [place] % (Auto) 7.6 (2-11) % Eos % (Auto) 1.1 (0-4) % Baso % (Auto) 0.3 (0-2) % Lymph # (Auto) 1.2 (1.2-4.9) X10*3/uL [place] # (Auto) 0.8 (0.1-1.2) X10*3/uL Eos # (Auto) 0.1 (0.0-0.4) X10*3/uL Baso # (Auto) 0.0 (0.0-0.2) X10*3/uL Abs Immat Gran (auto) 0.13 H (0.00-0.03) X10*3/uL Absolute Neuts (auto) 8.5 H (2.0-8.3) x10*3/uL Absolute Nucleated RBC 0.000 (0.0-0.012) X10*3/uL Nucleated RBC % (auto) 0.0 (0.0-0.2) /100WBC VBG pH (7.32-7.43) VBG pCO2 mmHg VBG pO2 mmHg VBG HCO3 (22-26) mmol/L VBG O2 Saturation % VBG Base Excess mmol/L Sodium 136 (135-145) mmol/L Potassium 4.4 (3.3-5.1) mmol/L Chloride 105 (96-108) mmol/L Carbon Dioxide 20 L (22-29) mmol/L Anion Gap 15 (12-20) BUN 23 H (9-16) mg/dL Creatinine 0.67 (0.5-1.4) mg/dL Estim Creat Clear Calc 52.2 Estimated GFR > 60 Random Glucose 108 (60-115) mg/dL Lactic Acid 2.7 H* (0.5-2.0) mmol/L Lactic Acid F/U @ 2Hr (0.5-2.0) mmol/L Calcium 8.4 (8.4-10.2) mg/dL Magnesium 2.1 (1.6-2.6) mg/dL Total Bilirubin 0.3 (0.0-1.0) mg/dL Direct Bilirubin 0.1 (0.0-0.5) mg/dL AST 18 (5-31) U/L ALT 9 (0-31) U/L Alkaline Phosphatase 65 (39-117) U/L Ammonia 18 (13-55) umol/L Total Creatine Kinase 24 L (26-140) U/L Troponin I High Sens 3.4 (<3.5-17.0) ng/L C-Reactive Protein 2.44 H (< or = 0.50) mg/dL B-Natriuretic Peptide 93 (<100) pg/mL Total Protein 6.8 (6.5-8.0) g/dL Albumin 3.3 L (3.5-5.0) g/dL Lipase 30 (8-78) U/L Procalcitonin 0.29 ng/mL TSH 7.24 H (0.32-4.0) uIU/mL Free T4 1.14 (0.71-1.85) ng/dL Blood Type A Positive Antibody Screen POSITIVE Antibody Identification Inconclusive Crossmatch (AHG) See Detail 01/11/25 01/11/25 Range/Units 17:18 19:28 WBC (4.8-10.8) X10*3/uL RBC (4.20-5.50) X10*6/uL Hgb (12.0-16.0) g/dl Hct (37.0-47.0) % MCV (80.0-98.0) fL MCH (27.0-33.0) pg MCHC (31.0-35.0) g/dl RDW (11.0-16.0) % Plt Count (160-400) X10*3/uL MPV (9.4-12.3) fL Immature Gran % (Auto) (0.0-0.4) % Neut % (Auto) (45-73) % Lymph % (Auto) (20-40) % [place] % (Auto) (2-11) % Eos % (Auto) (0-4) % Baso % (Auto) (0-2) % Lymph # (Auto) (1.2-4.9) X10*3/uL [place] # (Auto) (0.1-1.2) X10*3/uL Eos # (Auto) (0.0-0.4) X10*3/uL Baso # (Auto) (0.0-0.2) X10*3/uL Abs Immat Gran (auto) (0.00-0.03) X10*3/uL Absolute Neuts (auto) (2.0-8.3) x10*3/uL Absolute Nucleated RBC (0.0-0.012) X10*3/uL Nucleated RBC % (auto) (0.0-0.2) /100WBC VBG pH 7.40 (7.32-7.43) VBG pCO2 34 mmHg VBG pO2 123 mmHg VBG HCO3 22 (22-26) mmol/L VBG O2 Saturation 100.0 % VBG Base Excess -2.1 mmol/L Sodium (135-145) mmol/L Potassium (3.3-5.1) mmol/L Chloride (96-108) mmol/L Carbon Dioxide (22-29) mmol/L Anion Gap (12-20) BUN (9-16) mg/dL Creatinine (0.5-1.4) mg/dL Estim Creat Clear Calc Estimated GFR Random Glucose (60-115) mg/dL Lactic Acid (0.5-2.0) mmol/L Lactic Acid F/U @ 2Hr 1.1 (0.5-2.0) mmol/L Calcium (8.4-10.2) mg/dL Magnesium (1.6-2.6) mg/dL Total Bilirubin (0.0-1.0) mg/dL Direct Bilirubin (0.0-0.5) mg/dL AST (5-31) U/L ALT (0-31) U/L Alkaline Phosphatase (39-117) U/L Ammonia (13-55) umol/L Total Creatine Kinase (26-140) U/L Troponin I High Sens (<3.5-17.0) ng/L C-Reactive Protein (< or = 0.50) mg/dL B-Natriuretic Peptide (<100) pg/mL Total Protein (6.5-8.0) g/dL Albumin (3.5-5.0) g/dL Lipase (8-78) U/L Procalcitonin ng/mL TSH (0.32-4.0) uIU/mL Free T4 (0.71-1.85) ng/dL Blood Type Antibody Screen Antibody Identification Crossmatch (AHG) Independent Interpretation I performed an independent interpretation of an: EKG, Plain X-Ray (no consolidation) and CT Scan (I see no ICH, no VTE possible pneumonia) Interpretation: Rate: 79 Rhythm: NSR [place]: normal Normal P waves. Normal ANABELLA. Normal QRS complex. ST T wave : no [place], inverted t waves V1-V4 qTC: 463 prior studies: similar in September of 2024 The study has been interpreted contemporaneously by me. . Radiology Impression Discussion of test interpretation with radiology: I have reviewed the radiologist's reading. Independent Historian Clinical information obtained from an independent historian. History obtained from or confirmed by: EMS External Record Review External record reviewed: Inpatient record and Outpatient record Critical Care Time Critical Care Time Critical Care Time: Yes Total Critical Care Time: 60 Attestation: Time is exclusive of separately billable procedures. Time includes: direct patient care, patient reassessment, coordination of patient care, interpretation of data (laboratory data, pulse oximetry, venous blood gases and chest xrays), review of patient's medical records, medical consultation x 2 and documentation of patient care. IV diltiazem. Procedures excluded from critical care time: electrocardiography. I attest to this time spent taking care of the patient Discharge Plan Discharge Clinical Impression: Acute alteration in mental status, Atrial fibrillation with RVR, Acidosis, lactic Prescriptions: No Action cholecalciferol (vitamin D3) 125 mcg (5,000 unit) capsule 125 mcg PO DAILY Qty: 90 1RF omeprazole 20 mg capsule,delayed release(DR/EC) 20 mg PO DAILY@0630 amlodipine 5 mg tablet 5 mg PO DAILY ropinirole 1 mg tablet 2 mg PO TID PRN (Reason: Restless Leg(S)) lidocaine [Lidocaine Pain Relief] 4 % adhesive patch,medicated 1 patch transdermal DAILY PRN (Reason: Pain) Protocol: Apply to: Apply to: affected area metoprolol tartrate 50 mg Tablet 50 mg PO BID Qty: 60 0RF Protocol: Hold for SBP/HR < HOLD for SBP < : 90 HOLD for HR < : 60 acetaminophen 325 mg tablet 650 mg PO Q6H PRN (Reason: pain) Qty: 60 1RF pravastatin 40 mg tablet 40 mg PO DAILY 90 Days Qty: 90 1RF albuterol sulfate 90 mcg/actuation HFA aerosol inhaler 2 puff inhalation Q4-6H PRN (Reason: shortness of breath or wheezing) 30 Days Qty: 8.5 4RF folic acid 1 mg tablet 1 mg PO DAILY Qty: 90 3RF cyanocobalamin (vitamin B-12) 1,000 mcg lozenge 1,000 mcg SUBLINGUAL DAILY Qty: 90 4RF ferrous sulfate [Feosol] 325 mg (65 mg iron) tablet 325 mg PO BID 30 Days Qty: 60 2RF (DME) blood pressure monitor Kit See Rx Instructions .Route Qty: 1 0RF Rx Instructions: check bp twice a week and when not feeling well Print Language: Bruneian
[2025-01-11 17:43] LABS: Alanine Aminotransferase 9 U/L (0-31); Albumin Level 3.3 g/dL (3.5-5.0); Alkaline Phosphatase 65 U/L (39-117); Anion Gap 15 (12-20); Aspartate Amino Transferase 18 U/L (5-31); Blood Urea Nitrogen 23 mg/dL (9-16); Calcium 8.4 mg/dL (8.4-10.2); Carbon Dioxide 20 mmol/L (22-29); Chloride 105 mmol/L (96-108); Creatinine Clr Calc Pharmacy 52.2; Estimated Glomerular Filt Rate > 60; Lipase 30 U/L (8-78); Magnesium 2.1 mg/dL (1.6-2.6); Potassium 4.4 mmol/L (3.3-5.1); Sodium 136 mmol/L (135-145); Total Protein 6.8 g/dL (6.5-8.0)
[2025-01-11 17:45] LABS: B Type Natriuretic Peptide 93 pg/mL (<100)
[2025-01-11 17:59] LABS: Procalcitonin 0.29 ng/mL
[2025-01-11 18:21] LABS: Free T4 (Free Thyroxine) 1.14 ng/dL (0.71-1.85)
[2025-01-11 18:45] VITALS: BP 130/66; PULSE 79; RESP 17; O2SAT 98
[2025-01-11 19:16] LABS: Reflex Lactate? Lactic Acid Added
[2025-01-11 19:50] LABS: ~Lactic Acid-LAB USE ONLY 1.1 mmol/L (0.5-2.0)
[2025-01-11] MEDS: iohexoL 350 MG/ML 100 ML INFUS..BTL IV (20:16)
--- NOTE | 2025-01-11 20:57 | PC.NURSE ---
Multiple attempts to get urine from patient, had a bowel movement in bed plan during shift. Patient was cleaned up, given a bed bath, new javier and new bedding. Urine was contaminated with stool. Attempted to put on bed pain again as patient stated she had to go after getting comfortable in bed. Given time to use the bedpan. Patient unable to urinate in bed brock.
[2025-01-11 21:30] VITALS: BP 149/74; PULSE 86; RESP 24; TEMP 36.4; O2SAT 100
--- NOTE | 2025-01-11 21:32 | PC.NURSE ---
Patients HR is 167 while asleep, at bedside. Patient upon awaking, HR trended back down to 87. Patient stated she did not feel her heart racing or felt palpitations or dizziness.
[2025-01-11 21:48] VITALS: BP 146/76; PULSE 147
[2025-01-11 21:49] VITALS: PULSE 144
--- NOTE | 2025-01-11 22:00 | PC.NURSE ---
server support technician made nurse aware that patients HR was back into the 170s. Patient was asleep upon waking no symptoms had been felt. Patient sustained 170s. MD aware, medicated for HR control. Effective. HR went to the range 88-92. Patient is asymptomatic.
--- NOTE | 2025-01-11 22:18 | P.HPHOSP_ITS ---
History of Present Illness Date of Service: 01/11/25 Attending physician on admission: Paradise Rosado Chief Complaint: AMS Pt is a 79 yo with PMH recent GIB/ pericardial effusion discharged home 01/10/2025, COPD, Tobacco dependence not on home O2, HTN, AFIB not on AC due to fall risk, PPM in place, CINDY, PNA, OA, Osteoporosis, RA, RLS was BIBA to ED for AMS and change in LOC witnesses by pt's neighbor while pt was watching TV in bed. Pt states I don't know what happened. Pt can remember watching TV around 2:30 PM and believes her neighbor was with her and the next thing she knows she is in the ED. Pt then recalls that she does not believe she passed out but felt like she could not breath and she couldn't do anything . Pt denies hx of CVA, SZ or other neurological hx. Pt did not have chest pain at the time and does not recall feeling sweaty or dizzy. Pt's memory appears somewhat unreliable as she goes back and forth between remembering some things to nothing at all. Pt denies hx of dementia or memory issues. Pt does not have phone number for her neighbor. Unable to reach out for clarification. Pt does remember being discharged to home 01/10 and resumed all her medications including the blood thinner (no blood thinner listed) and pt states there were no new medication changes when she discharged. Pt lives alone and has a son locally but no help in the home routinely. Pt presented to ED with decreased LOC and was pale and diaphoretic. Labs note stable H/H, elevated LA and CRP, no leukocytosis and normal ammonia level. Pt received fluid bolus and LA normalized. Echo done last admission 01/05 noting EF 64% noting small to moderate pericardial effusion. CT scan today notes small pericardial effusion, much smaller in size compared to previous. CT head indicated a possible subarachnoid vs intraparenchymal bleed. ED provider reviewed this reading with ICU and Neuro as documented: 725pm Dr. Mckeon from ICU - no bleed that would warrant ICU level of care at this time could discuss images with NSGY at this time but he does not see a bleed on the imaging at this time recommends I also have NSGY review as he is not clear where the bleed is. Patient is GCS 15 at this time BP 130s systolic 732pm reviewed images by Darrick from NSGY at [facility] states there is no bleed on imaging this is overread by radiology and there is no SAH or IPH. It was verified that pt did not have a brain bleed. Then pt went into AFIB RVR and pt received 10 mg IV cardizem and converted to NSR, hemodynamics stable and pt currently denies CP, SOB, or [place]. Unfortunately there is no way to verify what occurred at time of events but neighbor present and called 911. It is very unlikely pt had a seizure. Pt may have had syncopal episode or near syncopal event. BG stable on arrival with no hx of DM. It is possible pt is weak from this most recent hositalization and may have needed STR but this pt would likely refuse this if offered this admission. Pt initially refused admission. Monitoring and work up continues upon admission. Review of Systems 2 Review of Systems: Pt currently denies CP, SOB at rest, reports ongoing fatigue noting recent hospitalization. Appetite is fair. Pt denies ABD pain, N/V, diarrhea or constipation issues. 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 Surgical History S/P appendectomy H/O parathyroidectomy Status post hip surgery Social History Household Members: None Housing: Apartment Are you a primary care clinician to a significant other at home: No Do you presently have visiting nurse or other home services: No Unable to assess alcohol history related to: Refusing to respond Alcohol intake: never Comment: Patient at times refusing bed alarm Patient Tobacco Use Status: Current everyday Tobacco user Tobacco use type: Cigarette Cigarette Packs Per Day: 0.5 Cigarettes Per Day: 10.0 Years Smoked: 59 Smoked in Last 30 Days: No e-Cigarette/Vaping Use: Currently Using Second Hand Smoke Exposure: No Use of substances other than those prescribed or required for medical reasons: Refusing to respond Advance Directives: Yes Advance Directives on File: Yes Advance Directives Date on File: 09/10/23 Do you have a plan to hurt others: No Plan Nutrition Risks: No Nutritional Risk Patient : No service: No Current occupational status: retired 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 Current occupational exposures/hazards: No Cognitive needs: No Hearing needs: No Vision needs: Yes Ebola Risk: Travel/Contact With Anyone From Affected Area/s: No Has Patient Experienced Ebola Symptoms: No Meds Allergies Allergy/AdvReac Type Severity Reaction Status Date / Time oxycodone (From OxyContin) Allergy Mild Hives Verified 01/11/25 16:33 [place] Allergy Mild Hives & Uncoded 01/11/25 16:33 Swollen legs Active Medications: Current Medications Acetaminophen (Acetaminophen 325 Mg Tablet) 650 mg PO Q6H PRN PRN Reason: Pain, Mild 1-3,fever,headache Albuterol/Ipratropium (Albuterol/Iprat 2.5/0.5mg 3 Ml Ampul.Neb) 3 ml INHALE Q4H PRN PRN Reason: Shortness of Breath/Wheezing Calcium Carbonate (Calcium Carbonate 750 Mg Tab.Chew) 750 mg PO Q4H PRN PRN Reason: Heartburn Magnesium Hydroxide (Milk Of Magnesia 30 Ml Oral.Susp) 30 ml PO DAILY PRN PRN Reason: Constipation Melatonin (Melatonin 3 Mg Tablet) 6 mg PO BEDTIME PRN PRN Reason: Insomnia Ondansetron HCl (Ondansetron Hcl 4 Mg/2 Ml Vial) 4 mg IVPUSH Q8H PRN PRN Reason: Nausea and Vomiting Polyethylene Glycol (Polyethylene Glycol 3350 17 Gm Powd.Pack) 17 gm PO DAILY PRN PRN Reason: Constipation Senna (Sennosides 8.6 Mg Tablet) 17.2 mg PO BEDTIME GABRIELA Sodium Chloride (0.9 % Sodium Chloride Flush 3 Ml Syringe) 3 ml IVFLUSH QSHIFT GABRIELA Home Medications ?Medication ?Instructions ?Recorded ?Confirmed ?Last Taken ?Type omeprazole 20 mg capsule,delayed 20 mg PO DAILY@0630 0 09/19/24 01/12/25 01/04/25 History release amlodipine 5 mg tablet 5 mg PO DAILY 01/04/2501/1201/04/25 History lidocaine 4 % topical patch 1 patch transdermal DAILY PRN Pain 01/04/25 01/11/25 Unknown History (Lidocaine Pain Relief) ropinirole 1 mg tablet 2 mg PO TID PRN Restless Leg (S) 01/04/25 01/12/25 01/04/25 History Physical Exam 2 Vital Signs and Narrative: Vital Signs: Last Vital Signs Temp 97.6 F 01/11/25 21:30 Pulse 144 H 01/11/25 21:49 Resp 24 H 01/11/25 21:30 BP 146/76 H 01/11/25 21:48 Pulse Ox 100 01/11/25 21:30 O2 Del Method Nasal Cannula 01/11/25 21:30 O2 Flow Rate 2 01/11/25 21:30 BMI result Body Mass Index 18.1 Alert and orientated X3, memory unreliable regarding earlier events Neuro: CN II-X11 intact, no deficits, visual acuity intact EYES: PERRLA, EOM intact, sclerae nonicteric, conjunctiva pink ENT: hearing intact, no issues with swallowing, uvula midline, lips moist, nares patent no epistaxis Cardiac: S1 S2 RRR, no murmur, no JVD, no edema in Lower ext Pulmonary: lungs diminshed B Abdominal: BS active in all 4 quadrants, no guarding, no tenderness MSK: strength 3/5 upper and lower extremities : no CVA tenderness no bladder distension Extremities: no edema in lower extremities, PT and DP pulses palpable +2 Skin: intact, pale Results Labs 01/12/25 05:43 01/12/25 05:43 Labs: Laboratory Results - last 24 hr 01/11/25 01/11/25 01/11/25 16:43 17:10 17:11 MCV 74.8 L MCH 22.3 L MCHC 29.8 L RDW 23.6 H Plt Count 582 H MPV 8.8 L Immature Gran % (Auto) 1.2 H Neut % (Auto) 78.7 H Lymph % (Auto) 11.1 L Hooker % (Auto) 7.6 Eos % (Auto) 1.1 Baso % (Auto) 0.3 Lymph # (Auto) 1.2 Hooker # (Auto) 0.8 Eos # (Auto) 0.1 Baso # (Auto) 0.0 Abs Immat Gran (auto) 0.13 H Absolute Neuts (auto) 8.5 H Absolute Nucleated RBC 0.000 Nucleated RBC % (auto) 0.0 VBG pH VBG pCO2 VBG pO2 VBG HCO3 VBG O2 Saturation VBG Base Excess Anion Gap 15 Estim Creat Clear Calc 52.2 Estimated GFR > 60 Random Glucose 108 Lactic Acid 2.7 H* Lactic Acid F/U @ 2Hr Calcium 8.4 Magnesium 2.1 Total Bilirubin 0.3 Direct Bilirubin 0.1 AST 18 ALT 9 Alkaline Phosphatase 65 Ammonia 18 Total Creatine Kinase 24 L C-Reactive Protein 2.44 H B-Natriuretic Peptide 93 Total Protein 6.8 Albumin 3.3 L Lipase 30 Procalcitonin 0.29 TSH 7.24 H Free T4 1.14 Blood Type A Positive Antibody Screen POSITIVE Antibody Identification Inconclusive Crossmatch (AHG) See Detail 01/11/25 01/11/25 17:18 19:28 MCV MCH MCHC RDW Plt Count MPV Immature Gran % (Auto) Neut % (Auto) Lymph % (Auto) Hooker % (Auto) Eos % (Auto) Baso % (Auto) Lymph # (Auto) Hooker # (Auto) Eos # (Auto) Baso # (Auto) Abs Immat Gran (auto) Absolute Neuts (auto) Absolute Nucleated RBC Nucleated RBC % (auto) VBG pH 7.40 VBG pCO2 34 VBG pO2 123 VBG HCO3 22 VBG O2 Saturation 100.0 VBG Base Excess -2.1 Anion Gap Estim Creat Clear Calc Estimated GFR Random Glucose Lactic Acid Lactic Acid F/U @ 2Hr 1.1 Calcium Magnesium Total Bilirubin Direct Bilirubin AST ALT Alkaline Phosphatase Ammonia Total Creatine Kinase C-Reactive Protein B-Natriuretic Peptide Total Protein Albumin Lipase Procalcitonin TSH Free T4 Blood Type Antibody Screen Antibody Identification Crossmatch (AHG) ECG Attestation: I personally reviewed and interpreted this ECG as follows: (NSR normal Qtc ) Prior ECG tracings: available for review Imaging Radiologist's Impressions: CT HEAD IMPRESSION: 1. Question small amount of subarachnoid versus intraparenchymal hemorrhage along the anterior right frontal lobe. No associated mass effect. Assessment and Plan (1) Acute alteration in mental status: Status: Acute (2) Syncope: Qualifiers: Syncope type: unspecified Qualified Code(s): R55 - Syncope and collapse Status: Acute (3) Atrial fibrillation with RVR: Status: Acute Plan Pt is a 79 yo with PMH recent GIB/ pericardial effusion discharged home 01/10/2025, COPD, Tobacco dependence not on home O2, HTN, AFIB not on AC due to fall risk, PPM in place, CINDY, PNA, OA, Osteoporosis, RA, RLS was BIBA to ED for AMS and change in LOC witnesses by pt's neighbor while pt was watching TV in bed. Pt states I don't know what happened. Pt can remember watching TV around 2:30 PM and believes her neighbor was with her and the next thing she knows she is in the ED. Pt then recalls that she does not believe she passed out but felt like she could not breath and she couldn't do anything . Differentials include near syncope, syncope, seizure, hypoglycemia, anemia, infection, sepsis. Pt does not meet criteria for Sepsis upon admission. AMS/ with abnormal CT Head Currently Resolved, pt is back to baseline Ammonia WNL CT HEAD Reviewed by ICU and Neuro - per ED provider there is no SDH or IPH Fall prevention measures PT EVAL Syncope vs Seizure Cardiology consulted Consider interrogation of PPM Neurology consulted - no indication for seizure prophylaxis, very low likelihood of sz, ? need for EEG Telemetry Orthostatics in AM No evidence of hypoglycemia Subclinical Hypothyroidism TSH 7.24 and FT4 1.14 FT3 in AM Starting 25 mgs of levothyroxine noting pt's symptoms overall Recheck labs in 4 weeks, follow up with PCP Recent admission for GIB, Pericardial effusion Last Echo 01/05/25: EF 64%, small to moderate pericardial effusion Hemodynamics stable, CT notes much smaller effusion, small from moderate, will hold on repeating echo H/H stable, no indication of acute bleed PPI ordered Rule out PNA CT chest possible PNA Ceftriaxone and Azithromycin ordered Pt currently on RA VIral studies pending AFIB RVR, not new Back to NSR after episode in ED, RVR Cardizem 10 mg IV effecitve Telemetry CHeck MG, TSH metoprolol to continue once med rec completed CINDY Continue Iron supplementation CBC daily DVT Prophylaixs: lovenox MED REC PENDING FULL CODE STATUS, pt confirmed this at bedside Quality Stroke Does the patient have a stroke diagnosis?: No VTE Prior VTE?: No VTE Risk Level:: Medical - moderate - high VTE Device Contraindication: N/A - Device Ordered VTE Drug Contraindication: N/A - Med Ordered
--- NOTE | 2025-01-11 22:45 | MHC.EDTECH ---
Neurology answering service notified of routine consult at [phone]
[2025-01-11 23:31] LABS: Appearance Urine Clear; Glucose Urine UA Negative (Negative); PH 8.0 (5.0-9.0); Specific Gravity - Urine >= 1.030 (1.005-1.025)
[2025-01-12] VITALS (12 sets, daily range): BP systolic 113–157; BP diastolic 56–80; PULSE 65–167; RESP 14–23; TEMP 36.2–36.9; O2SAT 95–100; BMI 18.1; BMI 19.9; BMI 20.1
[2025-01-12 01:44] LABS: Cannabinoid Screen Urine Not Detected (Not Detect)
[2025-01-12 03:35] LABS: Resp Syncy Virus RNA Qual PCR NEGATIVE (Negative); SARS COV2 PCR INHOUSE NEGATIVE (Negative)
[2025-01-12 06:18] LABS: MANUAL DIFF FLAG NO
[2025-01-12 06:22] LABS: Hematocrit 32.0 % (37.0-47.0); Hemoglobin 9.6 g/dl (12.0-16.0); Imm Gran Abs Auto 0.05 X10*3/uL (0.00-0.03); Imm Gran Pct Auto 0.6 % (0.0-0.4); Lymphocytes Absolute Auto 1.1 X10*3/uL (1.2-4.9); Mean Corpuscular HGB Conc 30.0 g/dl (31.0-35.0); Mean Corpuscular Hemoglobin 22.4 pg (27.0-33.0); Mean Corpuscular Volume 74.6 fL (80.0-98.0); NRBC Abs Auto 0.000 X10*3/uL (0.0-0.012); NRBC Pct Auto 0.0 /100WBC (0.0-0.2); Platelet Count 490 X10*3/uL (160-400); Red Blood Count 4.29 X10*6/uL (4.20-5.50); White Blood Count 8.5 X10*3/uL (4.8-10.8)
--- NOTE | 2025-01-12 06:28 | PC.NURSE ---
ambulated to bathroom, had a bowel movement, cleaned up on toliet. Patient had a total bed change and gown change. No reports of CP dizziness or SOB during activity. Patient back in bed connected to monitor.
[2025-01-12 06:37] LABS: Anion Gap 12 (12-20); Blood Urea Nitrogen 13 mg/dL (9-16); Calcium 8.3 mg/dL (8.4-10.2); Carbon Dioxide 23 mmol/L (22-29); Chloride 106 mmol/L (96-108); Creatinine Clr Calc Pharmacy 63.6; Estimated Glomerular Filt Rate > 60; Potassium 3.9 mmol/L (3.3-5.1); Sodium 137 mmol/L (135-145)
--- NOTE | 2025-01-12 08:47 | HE.PHANOTE ---
Spoke with pt son this morning to see if he can confirm pt medications; pt son states he has not had any contact with his mother in about 2 years and doesn't know anything about her.
--- NOTE | 2025-01-12 10:30 | PHA.MEDREC ---
Addendum entered by Tianna Oconnor [facility] 01/12/25 11:00: [facility] reviewed Original Note: Pharmacy Consult ? Medication Reconciliation Pharmacy has completed the medication reconciliation. Tried speaking with pt multiple times, but pt asleep at this time and requested I come back later. Called patient son (Mario- put in as HCP) and spoke with him over the phone and he informed he that he has not been in contact with his mom in about 2 years and does not have updated information about his mothers health. Pt just discharged from 01/10; I utilized that DC packet to confirm pt medications.
--- NOTE | 2025-01-12 11:38 | MHC.CM.PN ---
CM met with Patient at bedside, in the ED, and addressed IMM with her, providing Patient with the original and a copy will be placed on the chart. Patient lives alone in an apartment and she uses a walker for mobility. Patient's Son/Mario is the HCP and the HEEL BURNISHER/PA is Burke Vazquez. Home/self care is Patient's goal and CM has initiated and will follow for dc planning. Patient will need assist with transport at dc.
--- NOTE | 2025-01-12 12:00 | CA_ITS ---
Transthoracic Echocardiogram Patient (Last, First, Middle): Yoli Londono A Gender: Female Date of : 1945 Age: 79 Procedure Date: 01/12/2025 Procedure Type: Transthoracic Echocardiogram Location: ER Height: 162.56 cm Weight: 47.63 kg BSA: 1.49 m2 Heart Rate: bpm BP: 123 / 67 mmHg Shipping Associate: Referring MD: Ron Garcia MD Symptoms: LOC sycnope/afib rvr/ chr.sm-mod pericard effusion Study Quality: Fair ECG Rhythm: Sinus Conclusions: - Normal left ventricular cavity size. There is moderately increased left ventricular wall thickness. The left ventricular systolic function is low normal. The visually estimated ejection fraction is between 50-55%. - Normal right ventricular cavity size. There is mildly decreased right ventricular systolic function. There is a pacemaker wire seen in the right ventricle. - There is no evidence of pericardial effusion. Findings Left Ventricle Normal left ventricular cavity size. There is moderately increased left ventricular wall thickness. The left ventricular systolic function is low normal. The visually estimated ejection fraction is between 50-55%. Right Ventricle Normal right ventricular cavity size. There is mildly decreased right ventricular systolic function. There is a pacemaker wire seen in the right ventricle. Tricuspid Valve Normal right atrial pressure. There is no evidence of pulmonary hypertension. Pericardium/Pleural There is no evidence of pericardial effusion. Prior Study Comparison Changes noted compared to prior study dated: 01/05/2025. No pericardial effusion noted. Measurements 2D Linear Measurements IVSd: 1.24 0.6-0.9/0.6-1.0 cm LVIDd: 3.96 3.9-5.3/4.2-5.9 cm LVIDd Index: 2.66 2.4-3.2/2.2-3.1 cm/m2 LVIDs: 2.71 2.0-3.6 cm LVPWd: 1.22 0.7-1.1 cm LV Mass: 210.61 67-162/88-224 g LV Mass Index: 141.35 43-95/49-115 g/m2 2D Systolic Function EF 4C: 55.50 >55% EF 2C: 53.70 >55% EF BiP: 54.30 >55% Tricuspid Valve TR Pk Heriberto: 2.33 TR Pk Grad: 22.00 RVSP: 25.00 Updated in Other Vendor System with Status of Final Atif Torres MD electronically signed on 01/12/2025 8:37:55 PM with status of Final
--- NOTE | 2025-01-12 12:00 | HO.PM.IMPN ---
Subjective Subjective Date of Service: 01/12/25 Interval History: Yoli Londono, a 73-year-old female with a history of cardiac issues requiring a pacemaker, presents to the hospital after experiencing a syncopal episode at home. The patient reports that she was in bed watching TV when the incident occurred. She recalls sitting up quickly, which was followed by a loss of consciousness. ? Prior to losing consciousness, Yoli experienced symptoms including a fast heartbeat, feeling winded, dizziness, and tunnel vision. She does not recall waking up on her own, but rather became aware when paramedics were present and checking her pulse. The patient mentions feeling strange during the event but has difficulty describing the sensation further. Yoli reports ongoing issues with her heart rate, which can spike up to 150-170 beats per minute even when she is at rest. She also notes experiencing dizziness upon standing up, which appears to be a chronic issue. The patient saw her circular sawyer helper last week, though she is unable to provide details about the visit or recall the doctor's name. Review of Systems General: Positive for feeling strange. Cardiovascular: Positive for fast heartbeat, dizziness. Neurological: Positive for tunnel vision, passing out. Genitourinary: Negative for pain or discomfort when urinating. Review of Systems: Yes all other systems are reviewed and are negative Physical Exam Exam: Exam: General: A&O x3, oriented to time place person and situation, comfortable, no pain Cardiac: S1, S2 auscultated with no S3/4, no MRG. Well perfused. Irregularly irregular heart rate 80-90 beats per minute. Respiratory: Normal breath sounds auscultated throughout all lung zones, without wheezing, rales. Normal rate. GI/ : No abdominal pain on palpation, no masses or distentions. MSK: Normal ambulation without pain at bony prominences or musculature Neurological: Normal neurological examination on overview, without obvious CN II-XII abnormalities. Vital Signs: Vital Signs: Last Vital Signs Temp 97.4 F 01/12/25 08:30 Pulse 167 H 01/12/25 10:44 Resp 19 01/12/25 08:30 BP 128/56 L 01/12/25 08:30 Pulse Ox 100 01/12/25 08:30 O2 Del Method Nasal Cannula 01/12/25 06:06 O2 Flow Rate 2 01/12/25 08:30 BMI result Body Mass Index 18.1 Objective Data Active Medications Acetaminophen (Acetaminophen 325 Mg Tablet) 650 mg PO Q6H PRN PRN Reason: Pain, Mild 1-3,fever,headache Albuterol/Ipratropium (Albuterol/Iprat 2.5/0.5mg 3 Ml Ampul.Neb) 3 ml INHALE Q4H PRN PRN Reason: Shortness of Breath/Wheezing Calcium Carbonate (Calcium Carbonate 750 Mg Tab.Chew) 750 mg PO Q4H PRN PRN Reason: Heartburn Azithromycin 500 mg/ Sodium (Chloride) 250 mls @ 125 mls/hr IV Q24H [facility] Stop: 01/17/25 00:14 Last Infusion: 01/12/25 04:12 Dose: Infused Documented By: TAVO Levothyroxine Sodium (Levothyroxine Sodium 25 Mcg Tablet) 25 mcg PO DAILY@0600 [facility] Last Admin: 01/12/25 06:09 Dose: 25 mcg Documented By: TAVO Magnesium Hydroxide (Milk Of Magnesia 30 Ml Oral.Susp) 30 ml PO DAILY PRN PRN Reason: Constipation Melatonin (Melatonin 3 Mg Tablet) 6 mg PO BEDTIME PRN PRN Reason: Insomnia Omeprazole (Omeprazole 20 Mg Capsule.Dr) 20 mg PO DAILY@0630 [facility] Last Admin: 01/12/25 08:26 Dose: Not Given Documented By: GAYLE Non-Admin Reason: med pulled from [facility] by night RN; ? given Ondansetron HCl (Ondansetron Hcl 4 Mg/2 Ml Vial) 4 mg IVPUSH Q8H PRN PRN Reason: Nausea and Vomiting Polyethylene Glycol (Polyethylene Glycol 3350 17 Gm Powd.Pack) 17 gm PO DAILY PRN PRN Reason: Constipation Senna (Sennosides 8.6 Mg Tablet) 17.2 mg PO BEDTIME [facility] Sodium Chloride (0.9 % Sodium Chloride Flush 3 Ml Syringe) 3 ml IVFLUSH QSHIFT [facility] Last Admin: 01/12/25 11:23 Dose: Not Given Documented By: GAYLE Non-Admin Reason: See Note Labs 01/12/25 05:43 01/12/25 05:43 Labs: Laboratory Results - last 24 hr 01/11/25 01/11/25 01/11/25 16:43 17:10 17:11 MCV 74.8 L MCH 22.3 L MCHC 29.8 L RDW 23.6 H Plt Count 582 H MPV 8.8 L Immature Gran % (Auto) 1.2 H Neut % (Auto) 78.7 H Lymph % (Auto) 11.1 L [place] % (Auto) 7.6 Eos % (Auto) 1.1 Baso % (Auto) 0.3 Lymph # (Auto) 1.2 [place] # (Auto) 0.8 Eos # (Auto) 0.1 Baso # (Auto) 0.0 Abs Immat Gran (auto) 0.13 H Absolute Neuts (auto) 8.5 H Absolute Nucleated RBC 0.000 Nucleated RBC % (auto) 0.0 VBG pH VBG pCO2 VBG pO2 VBG HCO3 VBG O2 Saturation VBG Base Excess Anion Gap 15 Estim Creat Clear Calc 52.2 Estimated GFR > 60 Random Glucose 108 Lactic Acid 2.7 H* Lactic Acid F/U @ 2Hr Calcium 8.4 Magnesium 2.1 Total Bilirubin 0.3 Direct Bilirubin 0.1 AST 18 ALT 9 Alkaline Phosphatase 65 Ammonia 18 Total Creatine Kinase 24 L C-Reactive Protein 2.44 H B-Natriuretic Peptide 93 Total Protein 6.8 Albumin 3.3 L Lipase 30 Procalcitonin 0.29 TSH 7.24 H Free T4 1.14 Urine Color Urine Appearance Urine pH Ur Specific [place] Urine Protein Urine Glucose (UA) Urine Ketones Urine Blood Urine Nitrite Ur Leukocyte Esterase Urine Opiates Screen Ur Buprenorphine Scrn Ur Oxycodone Screen Urine Methadone Screen Urine Fentanyl Screen Ur Barbiturates Screen Ur Phencyclidine Scrn Ur Amphetamines Screen U Benzodiazepines Scrn Urine Cocaine Screen U Marijuana (THC) Screen Influenza Type A (PCR) Influenza Type B (PCR) RSV RNA Qual (PCR) SARS-CoV-2 RNA (RT-PCR) Blood Type A Positive Antibody Screen POSITIVE Antibody Identification Inconclusive Crossmatch (AHG) See Detail 01/11/25 01/11/25 01/11/25 17:18 19:28 23:17 MCV MCH MCHC RDW Plt Count MPV Immature Gran % (Auto) Neut % (Auto) Lymph % (Auto) [place] % (Auto) Eos % (Auto) Baso % (Auto) Lymph # (Auto) [place] # (Auto) Eos # (Auto) Baso # (Auto) Abs Immat Gran (auto) Absolute Neuts (auto) Absolute Nucleated RBC Nucleated RBC % (auto) VBG pH 7.40 VBG pCO2 34 VBG pO2 123 VBG HCO3 22 VBG O2 Saturation 100.0 VBG Base Excess -2.1 Anion Gap Estim Creat Clear Calc Estimated GFR Random Glucose Lactic Acid Lactic Acid F/U @ 2Hr 1.1 Calcium Magnesium Total Bilirubin Direct Bilirubin AST ALT Alkaline Phosphatase Ammonia Total Creatine Kinase C-Reactive Protein B-Natriuretic Peptide Total Protein Albumin Lipase Procalcitonin TSH Free T4 Urine Color Urine Appearance Urine pH Ur Specific [place] Urine Protein Urine Glucose (UA) Urine Ketones Urine Blood Urine Nitrite Ur Leukocyte Esterase Urine Opiates Screen Not Detected Ur Buprenorphine Scrn Not Detected Ur Oxycodone Screen Not Detected Urine Methadone Screen Not Detected Urine Fentanyl Screen Not Detected Ur Barbiturates Screen Not Detected Ur Phencyclidine Scrn Not Detected Ur Amphetamines Screen Not Detected U Benzodiazepines Scrn Not Detected Urine Cocaine Screen Not Detected U Marijuana (THC) Screen Not Detected Influenza Type A (PCR) Influenza Type B (PCR) RSV RNA Qual (PCR) SARS-CoV-2 RNA (RT-PCR) Blood Type Antibody Screen Antibody Identification Crossmatch (AHG) 01/11/25 01/12/25 01/12/25 23:24 02:53 05:43 MCV 74.6 L MCH 22.4 L MCHC 30.0 L RDW 23.5 H Plt Count 490 H MPV 8.7 L Immature Gran % (Auto) 0.6 H Neut % (Auto) 76.8 H Lymph % (Auto) 12.4 L [place] % (Auto) 7.9 Eos % (Auto) 1.8 Baso % (Auto) 0.5 Lymph # (Auto) 1.1 L [place] # (Auto) 0.7 Eos # (Auto) 0.2 Baso # (Auto) 0.0 Abs Immat Gran (auto) 0.05 H Absolute Neuts (auto) 6.5 Absolute Nucleated RBC 0.000 Nucleated RBC % (auto) 0.0 VBG pH VBG pCO2 VBG pO2 VBG HCO3 VBG O2 Saturation VBG Base Excess Anion Gap 12 Estim Creat Clear Calc 63.6 Estimated GFR > 60 Random Glucose 88 Lactic Acid Lactic Acid F/U @ 2Hr Calcium 8.3 L Magnesium Total Bilirubin Direct Bilirubin AST ALT Alkaline Phosphatase Ammonia Total Creatine Kinase C-Reactive Protein B-Natriuretic Peptide Total Protein Albumin Lipase Procalcitonin TSH Free T4 Urine Color Yellow Urine Appearance Clear Urine pH 8.0 Ur Specific [place] >= 1.030 H Urine Protein Negative Urine Glucose (UA) Negative Urine Ketones Negative Urine Blood Negative Urine Nitrite Negative Ur Leukocyte Esterase Negative Urine Opiates Screen Ur Buprenorphine Scrn Ur Oxycodone Screen Urine Methadone Screen Urine Fentanyl Screen Ur Barbiturates Screen Ur Phencyclidine Scrn Ur Amphetamines Screen U Benzodiazepines Scrn Urine Cocaine Screen U Marijuana (THC) Screen Influenza Type A (PCR) NEGATIVE Influenza Type B (PCR) NEGATIVE RSV RNA Qual (PCR) NEGATIVE SARS-CoV-2 RNA (RT-PCR) NEGATIVE Blood Type Antibody Screen Antibody Identification Crossmatch (AHG) Assessment and Plan (1) Paroxysmal atrial fibrillation: Status: Acute (2) Encounter for interrogation of cardiac pacemaker: Status: Acute (3) Atrial fibrillation with RVR: Status: Acute (4) Pericardial effusion: Status: Acute (5) COPD (chronic obstructive pulmonary disease): Status: Acute Plan 73-year-old female with an history COPD no home O2, HTN, atrial fibrillation not on anticoagulation, CHF s/p ppm, active smoker, rheumatoid arthritis, pericardial effusion, admitted with syncopal event and LOC x30 minutes 2/2 AFib RVR & orthostatic hypotension; pending further workup. Syncopal event Loss of consciousness Chronic Pericardial effusion (small-moderate) AFib RVR CHFpEF 65% Event seems to be 2/2 concomitant AFib RVR with orthostatic hypotension. The patient has a history of a chronic pericardial effusion, with recent admission for GI bleed; found to have hemodynamically stable pericardial effusion. No new medications, No new bleeding, No evidence of infection. Etiology likely 2/2 AFib RVR, with possible superimposed orthostatic hypotension. Further investigation for contribution of pericardial effusion to patient's presentation. Last ECHO 01/05 revealing LVEF 64% with small to moderate pericardial effusion most prominent posterior to the left ventricle without evidence of tamponade. PLAN - cardiology following recommendations greatly appreciated - continue metoprolol - diltiazem 10 mg IV as needed - ppm interrogation - echocardiogram - orthostatics - maintain hydration - cardiac telemetry - I/O q.6 hourly - daily weights Recent GI bleed Patient recently admitted for GI bleed, stabilized. Hemoglobin on 01/09 was 11.1, on admission was 10.2. Currently hemoglobin 9.6. PLAN - monitor for bleeding - ensure adequate hydration - repeat CBC - type and screen precautionary Acute COPD exacerbation Possible pneumonia CTA 01/11 revealing possible infiltrates at the left lower lobe and possible bronchitis The patient has a history of COPD. PLAN - discontinue ceftriaxone and azithromycin (given cardiac pathology above) - start doxycycline 100 mg b.i.d. p.o. - low-dose steroids; prednisone 20 mg OD p.o. for 5 days - p.r.n. O2 via [place] CINDY Continue Iron supplementation Pulmonary nodule Identified on CTA Follow up outpatient [facility] - VTE: enoxaparin - CODE STATUS: Full code - DIET: Regular Total time managing care of this patient today: 45 minutes. Quality Stroke Does the patient have a stroke diagnosis?: No VTE Prior VTE?: No VTE Risk Level:: Medical - moderate - high VTE Device Contraindication: N/A - Device Ordered VTE Drug Contraindication: N/A - Med Ordered
[2025-01-12 12:42] LABS: MANUAL DIFF FLAG NO
[2025-01-12 12:43] LABS: Hematocrit 32.8 % (37.0-47.0); Hemoglobin 10.0 g/dl (12.0-16.0); Imm Gran Abs Auto 0.04 X10*3/uL (0.00-0.03); Imm Gran Pct Auto 0.5 % (0.0-0.4); Lymphocytes Absolute Auto 1.1 X10*3/uL (1.2-4.9); Mean Corpuscular HGB Conc 30.5 g/dl (31.0-35.0); Mean Corpuscular Hemoglobin 22.6 pg (27.0-33.0); Mean Corpuscular Volume 74.2 fL (80.0-98.0); NRBC Abs Auto 0.000 X10*3/uL (0.0-0.012); NRBC Pct Auto 0.0 /100WBC (0.0-0.2); Platelet Count 452 X10*3/uL (160-400); Red Blood Count 4.42 X10*6/uL (4.20-5.50); White Blood Count 7.4 X10*3/uL (4.8-10.8)
--- NOTE | 2025-01-12 18:17 | PM.CNCAR ---
History of Present Illness History of Present Illness Date of Service: 01/12/25 Requesting physician: Ron Garcia Chief complaint: Rapid AFIB, altered mental status Narrative: [age] year female who is present for syncopal episode. She recently had GI bleed and got discharged from hospital. She has known history of atrial fibrillation. At home she had dizziness while standing from a sitting position and then passed out. She is describing lightheadedness. Denying any chest discomfort shortness of breath. In the ER she was noticed to have runs of atrial fibrillation with rapid ventricular response which were self-limiting. Currently not on anticoagulation due to recent GI bleed. Denying any other symptoms currently. No chest discomfort in particular. Denying shortness of breath. 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 Surgical History Surgical History S/P appendectomy H/O parathyroidectomy Status post hip surgery Social History Social History Household Members: None Housing: Apartment Are you a primary rn long term care to a significant other at home: No Do you presently have visiting nurse or other home services: No Unable to assess alcohol history related to: Refusing to respond Alcohol intake: never Comment: Patient at times refusing bed alarm Patient Tobacco Use Status: Current everyday Tobacco user Tobacco use type: Cigarette Cigarette Packs Per Day: 0.5 Cigarettes Per Day: 10.0 Years Smoked: 59 Smoked in Last 30 Days: No e-Cigarette/Vaping Use: Currently Using Second Hand Smoke Exposure: No Use of substances other than those prescribed or required for medical reasons: Refusing to respond Advance Directives: Yes Advance Directives on File: Yes Advance Directives Date on File: 09/10/23 Do you have a plan to hurt others: No Plan Nutrition Risks: No Nutritional Risk Patient : No service: No Current occupational status: retired 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 Current occupational exposures/hazards: No Cognitive needs: No Hearing needs: No Vision needs: Yes Travel History Ebola Risk: Travel/Contact With Anyone From Affected Area/s: No Has Patient Experienced Ebola Symptoms: No Meds Allergies Allergy/AdvReac Type Severity Reaction Status Date / Time oxycodone (From OxyContin) Allergy Mild Hives Verified 01/11/25 16:33 [place] Allergy Mild Hives & Uncoded 01/11/25 16:33 Swollen legs Active Medications: Current Medications Acetaminophen (Acetaminophen 325 Mg Tablet) 650 mg PO Q6H PRN PRN Reason: Pain, Mild 1-3,fever,headache Albuterol Sulfate (Albuterol Sulfate 90 Mcg 8 Gm Inhaler) 2 puff INHALE Q4H PRN PRN Reason: shortness of breath or wheezing Albuterol/Ipratropium (Albuterol/Iprat 2.5/0.5mg 3 Ml Ampul.Neb) 3 ml INHALE Q4H PRN PRN Reason: Shortness of Breath/Wheezing Calcium Carbonate (Calcium Carbonate 750 Mg Tab.Chew) 750 mg PO Q4H PRN PRN Reason: Heartburn Cyanocobalamin (Cyanocobalamin (Vitamin B-12) 1,000 Mcg Tablet) 1,000 mcg PO DAILY [facility] Doxycycline Monohydrate (Doxycycline Monohydrate 100 Mg Capsule) 100 mg PO Q12H [facility] Last Admin: 01/12/25 13:46 Dose: 100 mg Ferrous Sulfate (Ferrous Sulfate 324 Mg Tablet.) 324 mg PO BID [facility] Folic Acid (Folic Acid 1 Mg Tablet) 1 mg PO DAILY [facility] Levothyroxine Sodium (Levothyroxine Sodium 25 Mcg Tablet) 25 mcg PO DAILY@0600 [facility] Last Admin: 01/12/25 06:09 Dose: 25 mcg Magnesium Hydroxide (Milk Of Magnesia 30 Ml Oral.Susp) 30 ml PO DAILY PRN PRN Reason: Constipation Melatonin (Melatonin 3 Mg Tablet) 6 mg PO BEDTIME PRN PRN Reason: Insomnia Metoprolol Tartrate (Metoprolol Tartrate 50 Mg Tablet) 50 mg PO BID [facility]; Protocol Last Admin: 01/12/25 13:46 Dose: 50 mg Omeprazole (Omeprazole 20 Mg Capsule.) 20 mg PO DAILY@0630 [facility] Last Admin: 01/12/25 08:26 Dose: Not Given Ondansetron HCl (Ondansetron Hcl 4 Mg/2 Ml Vial) 4 mg IVPUSH Q8H PRN PRN Reason: Nausea and Vomiting Polyethylene Glycol (Polyethylene Glycol 3350 17 Gm Powd.Pack) 17 gm PO DAILY PRN PRN Reason: Constipation Pravastatin Sodium (Pravastatin Sodium 40 Mg Tablet) 40 mg PO DAILY [facility] Last Admin: 01/12/25 13:46 Dose: 40 mg Prednisone (Prednisone 20 Mg Tablet) 20 mg PO DAILY [facility] Stop: 01/17/25 12:29 Last Admin: 01/12/25 13:46 Dose: 20 mg Senna (Sennosides 8.6 Mg Tablet) 17.2 mg PO BEDTIME [facility] Sodium Chloride (0.9 % Sodium Chloride Flush 3 Ml Syringe) 3 ml IVFLUSH QSHIFT [facility] Last Admin: 01/12/25 11:23 Dose: Not Given Home Medications ?Medication ?Instructions ?Recorded ?Confirmed ?Last Taken ?Type omeprazole 20 mg capsule,delayed 20 mg PO DAILY@0630 09/19/24 01/12/25 01/04/25 History release amlodipine 5 mg tablet 5 mg PO DAILY 01/04/25 01/12/25 01/04/25 History lidocaine 4 % topical patch 1 patch transdermal DAILY PRN Pain 01/04/25 01/12/25 Unknown History (Lidocaine Pain Relief) ropinirole 1 mg tablet 2 mg PO TID PRN Restless Leg(S) 01/04/25 01/12/25 01/04/25 History Physical Exam Vital Signs: Vital Signs: Last Vital Signs Temp 97.8 F 01/12/25 14:01 Pulse 74 01/12/25 14:01 Resp 14 01/12/25 14:01 BP 128/56 L 01/12/25 14:01 Pulse Ox 99 01/12/25 14:01 O2 Del Method Nasal Cannula 01/12/25 14:01 O2 Flow Rate 2 01/12/25 14:01 BMI result Body Mass Index 19.9 GENERAL APPEARANCE: Frail appearing. NECK: no carotid bruit, no jugular venous distention. SKIN: no suspicious lesions, warm and dry. HEART: no murmurs, regular rate and rhythm. LUNGS: clear to auscultation bilaterally. ABDOMEN: soft, nontender. EXTREMITIES: no edema. PERIPHERAL PULSES: equal. NEUROLOGIC: No gross deficits, AAO X 3 Objective Labs and Meds 01/12/25 12:37 01/12/25 05:43 Lab results: Laboratory Results - last 24 hr 01/11/25 01/11/25 01/11/25 16:43 19:28 23:17 WBC RBC Hgb Hct MCV MCH MCHC RDW Plt Count MPV Immature Gran % (Auto) Neut % (Auto) Lymph % (Auto) [place] % (Auto) Eos % (Auto) Baso % (Auto) Lymph # (Auto) [place] # (Auto) Eos # (Auto) Baso # (Auto) Abs Immat Gran (auto) Absolute Neuts (auto) Absolute Nucleated RBC Nucleated RBC % (auto) Sodium Potassium Chloride Carbon Dioxide Anion Gap BUN Creatinine Estim Creat Clear Calc Estimated GFR Random Glucose Lactic Acid F/U @ 2Hr 1.1 Calcium Free T4 1.14 Urine Color Urine Appearance Urine pH Ur Specific [place] Urine Protein Urine Glucose (UA) Urine Ketones Urine Blood Urine Nitrite Ur Leukocyte Esterase Urine Opiates Screen Not Detected Ur Buprenorphine Scrn Not Detected Ur Oxycodone Screen Not Detected Urine Methadone Screen Not Detected Urine Fentanyl Screen Not Detected Ur Barbiturates Screen Not Detected Ur Phencyclidine Scrn Not Detected Ur Amphetamines Screen Not Detected U Benzodiazepines Scrn Not Detected Urine Cocaine Screen Not Detected U Marijuana (THC) Screen Not Detected Influenza Type A (PCR) Influenza Type B (PCR) RSV RNA Qual (PCR) SARS-CoV-2 RNA (RT-PCR) Blood Type A Positive Antibody Screen POSITIVE Antibody Identification Inconclusive Crossmatch (AHG) See Detail 01/11/25 01/12/25 01/12/25 23:24 02:53 05:43 WBC 8.5 RBC 4.29 Hgb 9.6 L Hct 32.0 L MCV 74.6 L MCH 22.4 L MCHC 30.0 L RDW 23.5 H Plt Count 490 H MPV 8.7 L Immature Gran % (Auto) 0.6 H Neut % (Auto) 76.8 H Lymph % (Auto) 12.4 L [place] % (Auto) 7.9 Eos % (Auto) 1.8 Baso % (Auto) 0.5 Lymph # (Auto) 1.1 L [place] # (Auto) 0.7 Eos # (Auto) 0.2 Baso # (Auto) 0.0 Abs Immat Gran (auto) 0.05 H Absolute Neuts (auto) 6.5 Absolute Nucleated RBC 0.000 Nucleated RBC % (auto) 0.0 Sodium 137 Potassium 3.9 Chloride 106 Carbon Dioxide 23 Anion Gap 12 BUN 13 Creatinine 0.55 Estim Creat Clear Calc 63.6 Estimated GFR > 60 Random Glucose 88 Lactic Acid F/U @ 2Hr Calcium 8.3 L Free T4 Urine Color Yellow Urine Appearance Clear Urine pH 8.0 Ur Specific [place] >= 1.030 H Urine Protein Negative Urine Glucose (UA) Negative Urine Ketones Negative Urine Blood Negative Urine Nitrite Negative Ur Leukocyte Esterase Negative Urine Opiates Screen Ur Buprenorphine Scrn Ur Oxycodone Screen Urine Methadone Screen Urine Fentanyl Screen Ur Barbiturates Screen Ur Phencyclidine Scrn Ur Amphetamines Screen U Benzodiazepines Scrn Urine Cocaine Screen U Marijuana (THC) Screen Influenza Type A (PCR) NEGATIVE Influenza Type B (PCR) NEGATIVE RSV RNA Qual (PCR) NEGATIVE SARS-CoV-2 RNA (RT-PCR) NEGATIVE Blood Type Antibody Screen Antibody Identification Crossmatch (AHG) 01/12/25 12:37 WBC 7.4 RBC 4.42 Hgb 10.0 L Hct 32.8 L MCV 74.2 L MCH 22.6 L MCHC 30.5 L RDW 23.3 H Plt Count 452 H MPV 8.5 L Immature Gran % (Auto) 0.5 H Neut % (Auto) 73.9 H Lymph % (Auto) 14.4 L [place] % (Auto) 9.4 Eos % (Auto) 1.5 Baso % (Auto) 0.3 Lymph # (Auto) 1.1 L [place] # (Auto) 0.7 Eos # (Auto) 0.1 Baso # (Auto) 0.0 Abs Immat Gran (auto) 0.04 H Absolute Neuts (auto) 5.5 Absolute Nucleated RBC 0.000 Nucleated RBC % (auto) 0.0 Sodium Potassium Chloride Carbon Dioxide Anion Gap BUN Creatinine Estim Creat Clear Calc Estimated GFR Random Glucose Lactic Acid F/U @ 2Hr Calcium Free T4 Urine Color Urine Appearance Urine pH Ur Specific [place] Urine Protein Urine Glucose (UA) Urine Ketones Urine Blood Urine Nitrite Ur Leukocyte Esterase Urine Opiates Screen Ur Buprenorphine Scrn Ur Oxycodone Screen Urine Methadone Screen Urine Fentanyl Screen Ur Barbiturates Screen Ur Phencyclidine Scrn Ur Amphetamines Screen U Benzodiazepines Scrn Urine Cocaine Screen U Marijuana (THC) Screen Influenza Type A (PCR) Influenza Type B (PCR) RSV RNA Qual (PCR) SARS-CoV-2 RNA (RT-PCR) Blood Type Antibody Screen Antibody Identification Crossmatch (AHG) Assessment and Plan (1) Paroxysmal atrial fibrillation: Status: Acute (2) Syncope: Status: Acute Plan 79-year-old pleasant lady with recent GI bleed presenting with syncope. Clinical story is concerning for orthostasis. Please check orthostatic vital signs. Repeat hemoglobin to rule out bleeding. She had [id number] pericardial effusion before. Limited echocardiography to assess the pericardial effusion. We will follow along with you. Thank you for allowing me to participate in the care of your patient. Please feel free to contact me if you have any questions. Procedures Date of Service Date of Service: 01/12/25
--- NOTE | 2025-01-12 20:23 | MHC.EDTECH ---
Patient bedpad changed and repositioned
[2025-01-12] MEDS: Ferrous Sulfate 324 MG TABLET.DR PO (20:24)
--- NOTE | 2025-01-12 20:39 | PC.NURSE ---
at this time, this nirse observed several Atrial pacer spikes. back to NSR
[2025-01-13] VITALS (15 sets, daily range): BP systolic 108–166; BP diastolic 56–78; PULSE 66–79; RESP 16–20; TEMP 36.2–37; O2SAT 96–98
[2025-01-13] MEDS: 0.9 % Sodium Chloride Flush 3 ML SYRINGE IVFLUSH ×4 (00:48→22:26)
[2025-01-13] MEDS: Ferrous Sulfate 324 MG TABLET.DR PO ×2 (09:37→22:25)
--- NOTE | 2025-01-13 11:46 | PM.PNCARD ---
Subjective Subjective Date of Service: 01/13/25 Interval history: Seen examined at bedside. Feeling better. Orthostatics positive. Physical Exam Vital Signs: Last Vital Signs Temp 97.5 F 01/13/25 11:07 Pulse 79 01/13/25 11:07 Resp 18 01/13/25 11:07 BP 119/57 L 01/13/25 11:07 Pulse Ox 97 01/13/25 11:07 O2 Del Method Room Air 01/13/25 11:07 O2 Flow Rate 2 01/12/25 14:01 BMI result Body Mass Index 20.1 GENERAL APPEARANCE: Frail appearing. NECK: no carotid bruit, no jugular venous distention. SKIN: no suspicious lesions, warm and dry. HEART: no murmurs, regular rate and rhythm. LUNGS: clear to auscultation bilaterally. ABDOMEN: soft, nontender. EXTREMITIES: no edema. PERIPHERAL PULSES: equal. NEUROLOGIC: No gross deficits, AAO X 3 Objective Labs and Meds 01/12/25 12:37 01/12/25 05:43 Lab results: Laboratory Results - last 24 hr 01/12/25 01/12/25 05:43 12:37 WBC 7.4 RBC 4.42 Hgb 10.0 L Hct 32.8 L MCV 74.2 L MCH 22.6 L MCHC 30.5 L RDW 23.3 H Plt Count 452 H MPV 8.5 L Immature Gran % (Auto) 0.5 H Neut % (Auto) 73.9 H Lymph % (Auto) 14.4 L [place] % (Auto) 9.4 Eos % (Auto) 1.5 Baso % (Auto) 0.3 Lymph # (Auto) 1.1 L [place] # (Auto) 0.7 Eos # (Auto) 0.1 Baso # (Auto) 0.0 Abs Immat Gran (auto) 0.04 H Absolute Neuts (auto) 5.5 Absolute Nucleated RBC 0.000 Nucleated RBC % (auto) 0.0 Free T3 2.6 Progress Note: A&P Assessment and plan (1) Syncope: Status: Acute Plan Syncope in 73 year lady with recent GI blood loss and orthostasis. Hemoglobin stable. Orthostatic vital signs are positive. Hydration and reassess the orthostatics. Thank you for allowing me to participate in the care of your patient. Please feel free to contact me if you have any questions. Time Spent With Patient Time: Total time managing care of this patient today ____ minutes. Progress Note: Quality Stroke Does the patient have a stroke diagnosis?: No Procedures Date of Service Date of Service: 01/13/25
--- NOTE | 2025-01-13 14:43 | HO.PM.IMPN ---
Subjective Subjective Date of Service: 01/13/25 Interval History: Feels well today. No complaints of chest pain, palpitations, dizziness, diaphoresis. Patient is eager to be discharged home. Discussed the need for limited echocardiography to evaluate worsening of pericardial effusion - granted this was done around 1-2 weeks ago. Given presentation of syncope and loss of consciousness, it warrants re-evaluation. Review of Systems Review of Systems: Yes all other systems are reviewed and are negative Physical Exam Exam: Exam: General: A&O x3, oriented to time place person and situation, comfortable, no pain Cardiac: S1, S2 auscultated with no S3/4, no MRG. Well perfused. Irregularly irregular heart rate 80-90 beats per minute. Respiratory: Normal breath sounds auscultated throughout all lung zones, without wheezing, rales. Normal rate. GI/ : No abdominal pain on palpation, no masses or distentions. MSK: Normal ambulation without pain at bony prominences or musculature Neurological: Normal neurological examination on overview, without obvious CN II-XII abnormalities. Vital Signs: Vital Signs: Last Vital Signs Temp 97.5 F 01/13/25 11:07 Pulse 77 01/13/25 14:34 Resp 18 01/13/25 11:07 BP 108/56 L 01/13/25 14:34 Pulse Ox 97 01/13/25 11:07 O2 Del Method Room Air 01/13/25 11:07 O2 Flow Rate 2 01/12/25 14:01 BMI result Body Mass Index 20.1 Objective Data Active Medications Acetaminophen (Acetaminophen 325 Mg Tablet) 650 mg PO Q6H PRN PRN Reason: Pain, Mild 1-3,fever,headache Albuterol Sulfate (Albuterol Sulfate 90 Mcg 8 Gm Inhaler) 2 puff INHALE Q4H PRN PRN Reason: shortness of breath or wheezing Albuterol/Ipratropium (Albuterol/Iprat 2.5/0.5mg 3 Ml Ampul.Neb) 3 ml INHALE Q4H PRN PRN Reason: Shortness of Breath/Wheezing Calcium Carbonate (Calcium Carbonate 750 Mg Tab.Chew) 750 mg PO Q4H PRN PRN Reason: Heartburn Cyanocobalamin (Cyanocobalamin (Vitamin B-12) 1,000 Mcg Tablet) 1,000 mcg PO DAILY GABRIELA Last Admin: 01/13/25 09:37 Dose: 1,000 mcg Documented By: DYAN Doxycycline Monohydrate (Doxycycline Monohydrate 100 Mg Capsule) 100 mg PO Q12H [facility] Last Admin: 01/13/25 12:53 Dose: 100 mg Documented By: DYAN Ferrous Sulfate (Ferrous Sulfate 324 Mg Tablet.) 324 mg PO BID [facility] Last Admin: 01/13/25 09:37 Dose: 324 mg Documented By: DYAN Folic Acid (Folic Acid 1 Mg Tablet) 1 mg PO DAILY [facility] Last Admin: 01/13/25 09:37 Dose: 1 mg Documented By: DYAN Levothyroxine Sodium (Levothyroxine Sodium 25 Mcg Tablet) 25 mcg PO DAILY@0600 [facility] Last Admin: 01/13/25 06:07 Dose: 25 mcg Documented By: ALICIA Magnesium Hydroxide (Milk Of Magnesia 30 Ml Oral.Susp) 30 ml PO DAILY PRN PRN Reason: Constipation Melatonin (Melatonin 3 Mg Tablet) 6 mg PO BEDTIME PRN PRN Reason: Insomnia Metoprolol Tartrate (Metoprolol Tartrate 50 Mg Tablet) 50 mg PO BID [facility]; Protocol Last Admin: 01/13/25 09:37 Dose: 50 mg Documented By: DYAN Omeprazole (Omeprazole 20 Mg Capsule.) 20 mg PO DAILY@0630 [facility] Last Admin: 01/13/25 06:07 Dose: 20 mg Documented By: ALICIA Ondansetron HCl (Ondansetron Hcl 4 Mg/2 Ml Vial) 4 mg IVPUSH Q8H PRN PRN Reason: Nausea and Vomiting Polyethylene Glycol (Polyethylene Glycol 3350 17 Gm Powd.Pack) 17 gm PO DAILY PRN PRN Reason: Constipation Pravastatin Sodium (Pravastatin Sodium 40 Mg Tablet) 40 mg PO DAILY [facility] Last Admin: 01/13/25 09:37 Dose: 40 mg Documented By: DYAN Prednisone (Prednisone 20 Mg Tablet) 20 mg PO DAILY [facility] Stop: 01/17/25 12:29 Last Admin: 01/13/25 09:37 Dose: 20 mg Documented By: DYAN Senna (Sennosides 8.6 Mg Tablet) 17.2 mg PO BEDTIME [facility] Last Admin: 01/12/25 20:24 Dose: 17.2 mg Documented By: LAFLAMC Sodium Chloride (0.9 % Sodium Chloride Flush 3 Ml Syringe) 3 ml IVFLUSH QSHIFT [facility] Last Admin: 01/13/25 09:38 Dose: 3 ml Documented By: DYAN Labs 01/12/25 12:37 01/12/25 05:43 Labs: Laboratory Results - last 24 hr 01/12/25 05:43 Free T3 2.6 Microbiology Microbiology Results: Microbiology 01/11/25 16:48 Blood Culture - Preliminary Blood - Venous No growth after 24 hours. 01/11/25 16:43 Blood Culture - Preliminary Blood - Venous No growth after 24 hours. 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 Syncopal event Loss of consciousness Chronic Pericardial effusion (small-moderate) AFib RVR CHFpEF 65% Event seems to be 2/2 concomitant AFib RVR with orthostatic hypotension. The patient has a history of a chronic pericardial effusion, with recent admission for GI bleed; found to have hemodynamically stable pericardial effusion. No new medications, No new bleeding, No evidence of infection. Etiology likely 2/2 AFib RVR, with possible superimposed orthostatic hypotension. Further investigation for contribution of pericardial effusion to patient's presentation. Last ECHO 01/05 revealing LVEF 64% with small to moderate pericardial effusion most prominent posterior to the left ventricle without evidence of tamponade. PLAN - cardiology following recommendations greatly appreciated - continue metoprolol - diltiazem 10 mg IV as needed - ppm interrogation - echocardiogram - orthostatics - maintain hydration - cardiac telemetry - I/O q.6 hourly - daily weights Recent GI bleed Patient recently admitted for GI bleed, stabilized. Hemoglobin on 01/09 was 11.1, on admission was 10.2. Currently hemoglobin 9.6. PLAN - monitor for bleeding - ensure adequate hydration - repeat CBC - type and screen precautionary Acute COPD exacerbation Possible pneumonia CTA 01/11 revealing possible infiltrates at the left lower lobe and possible bronchitis The patient has a history of COPD. PLAN - discontinue ceftriaxone and azithromycin (given cardiac pathology above) - start doxycycline 100 mg b.i.d. p.o. - low-dose steroids; prednisone 20 mg OD p.o. for 5 days - p.r.n. O2 via [place] CINDY Continue Iron supplementation Pulmonary nodule Identified on CTA Follow up outpatient [facility] - VTE: enoxaparin - CODE STATUS: Full code - DIET: Regular Quality Stroke Does the patient have a stroke diagnosis?: No VTE Prior VTE?: No VTE Risk Level:: Medical - moderate - high VTE Device Contraindication: N/A - Device Ordered VTE Drug Contraindication: N/A - Med Ordered
[2025-01-14] VITALS (7 sets, daily range): BP systolic 126–169; BP diastolic 63–77; PULSE 60–68; RESP 18–20; TEMP 36.2–36.5; O2SAT 96–98
[2025-01-14] MEDS: Ferrous Sulfate 324 MG TABLET.DR PO (07:55)
[2025-01-14] MEDS: 0.9 % Sodium Chloride Flush 3 ML SYRINGE IVFLUSH (07:55)
--- NOTE | 2025-01-14 12:04 | P.DS_ITS ---
DS: Providers Provider Date of Service: 01/14/25 Date of admission: 01/11/25 22:04 Date of discharge: 01/14/25 Primary care physician: Burke Vazquez PA-C Consults: 01/11/25 22:23 Consult to Cardiology Routine Consulting Provider: [facility] Reason for consultation: syncopal episode, unwitness AFIB RVR (hx of) not on AC due to recent GIB Consult to Neurology Routine Consulting Provider: [facility] Reason for consultation: AMS, rule out seizure Has provider been notified: No Attending physician on discharge: Ron Garcia DS: Diagnosis Discharge Diagnosis (1) Hypertension: Status: Acute (2) 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 The patient reports that she was in bed watching TV when the incident occurred. She recalls sitting up quickly, which was followed by a loss of consciousness. Prior to losing consciousness, Yoli experienced symptoms including a fast heartbeat, feeling winded, dizziness, and tunnel vision. She does not recall waking up on her own, but rather became aware when paramedics were present and checking her pulse. The patient mentions feeling strange during the event but has difficulty describing the sensation further. Yoli reports ongoing issues with her heart rate, which can spike up to 150-170 beats per minute even when she is at rest. She also notes experiencing dizziness upon standing up, which appears to be a chronic issue. 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 Presented to ED with decreased LOC and was pale and diaphoretic. Labs note stable H/H, elevated LA and CRP, no leukocytosis and normal ammonia level. Pt received fluid bolus and LA normalized. Echo done last admission 01/05 noting EF 64% noting small to moderate pericardial effusion. CT scan today notes small p ericardial effusion, much smaller in size compared to previous. CT head indicated a possible subarachnoid vs intraparenchymal bleed. ED provider reviewed this reading with ICU and Neuro as documented: 725pm Dr. Mckeon from ICU - no bleed that would warrant ICU level of care at this time could discuss images with NSGY at this time but he does not see a bleed on the imaging at this time recommends I also have NSGY review as he is not clear where the bleed is. Patient is GCS 15 at this time BP 130s systolic 732pm reviewed images by Darrick from NSGY at [facility] states there is no bleed on imaging this is overread by radiology and there is no SAH or IPH. It was verified that pt did not have a brain bleed. Pt went into AFIB RVR and pt received 10 mg IV cardizem and converted to NSR, hemodynamics stable and pt currently denies CP, SOB, or [place]. Syncopal event Loss of consciousness Chronic Pericardial effusion (small-moderate) AFib RVR CHFpEF 65% Event seems to be 2/2 concomitant AFib RVR with orthostatic hypotension. The patient has a history of a chronic pericardial effusion, with recent admission for GI bleed; found to have hemodynamically stable pericardial effusion. No new medications, No new bleeding, No evidence of infection. Etiology likely 2/2 AFib RVR, with possible superimposed orthostatic hypotension. Further investigation for contribution of pericardial effusion to patient's presentation. Last ECHO 01/05 revealing LVEF 64% with small to moderate pericardial effusion most prominent posterior to the left ventricle without evidence of tamponade. Unable to obtain PPM interrogation over the weekend. Recommend outpatient follow up with interrogation Status at Discharge Functional status at discharge: independent ambulation Overall status at discharge: patient is back to baseline Time Attestation Total time managing care of this patient today: 35 mintues. Discharge Coordination Time (in mins): 15 Quality: Safe Use of Opioids Does Pt have an Active Cancer Diagnosis on the Problem List?: No Quality: Stroke Does the patient have a stroke diagnosis?: No Physical Exam Exam: Exam: General: A&O x3, oriented to time place person and situation, comfortable, no pain Cardiac: S1, S2 auscultated with no S3/4, no MRG. Well perfused. Respiratory: Normal breath sounds auscultated throughout all lung zones, without wheezing, rales. Normal rate. GI/ : No abdominal pain on palpation, no masses or distentions. MSK: Normal ambulation without pain at bony prominences or musculature Neurological: Normal neurological examination on overview, without obvious CN II-XII abnormalities. Vital Signs: Vital Signs: Last Vital Signs Temp 97.7 F 01/14/25 11:30 Pulse 64 01/14/25 11:30 Resp 18 01/14/25 11:30 BP 132/63 01/14/25 11:30 Pulse Ox 97 01/14/25 11:30 O2 Del Method Room Air 01/14/25 11:30 O2 Flow Rate 2 01/12/25 14:01 BMI result Body Mass Index 20.1 DS: Data Data Completed and Pending Completed studies during hospitalization [Text1]: Procedures Destruction of Duodenum, Via Natural or Artificial Opening Endoscopic (08/31/24) Excision of Duodenum, Via Natural or Artificial Opening Endoscopic, Diagnostic (08/31/24) Excision of Stomach, Pylorus, Via Natural or Artificial Opening Endoscopic, Diagnostic (08/31/24) Insertion of Pacemaker Lead into Right Atrium, Percutaneous Approach (09/21/24) Insertion of Pacemaker Lead into Right Ventricle, Percutaneous Approach (09/21/24) Insertion of Pacemaker, Dual Chamber into Chest Subcutaneous Tissue and Fascia, Open Approach (09/21/24) Transfusion of Nonautologous Red Blood Cells into Peripheral Vein, Percutaneous Approach (08/31/24) Labs on day of discharge: Preliminary micro results at discharge 01/11/25 16:48 Blood Culture - Preliminary Blood - Venous No growth after 48 hours. 01/11/25 16:43 Blood Culture - Preliminary Blood - Venous No growth after 48 hours. Discharge Plan Discharge Anticipated Discharge Date/Time: 01/14/25 12:08 Patient Disposition: Home, Self-Care Discharge Diagnosis: Acute syncopal event 2/2 AFib RVR with orthostatic hypotension Referrals: Burke Vazquez PA-C [Primary Care Provider, Internal Medicine] - 1 Week Discharge Medications: New doxycycline monohydrate 100 mg Capsule 100 mg PO Q12H 5 Days Qty: 10 0RF Continued cholecalciferol (vitamin D3) 125 mcg (5,000 unit) capsule 125 mcg PO DAILY Qty: 90 1RF omeprazole 20 mg capsule,delayed release(DR/EC) 20 mg PO DAILY@0630 amlodipine 5 mg tablet 5 mg PO DAILY ropinirole 1 mg tablet 2 mg PO TID PRN (Reason: Restless Leg(S)) lidocaine [Lidocaine Pain Relief] 4 % adhesive patch,medicated 1 patch transdermal DAILY PRN (Reason: Pain) Protocol: Apply to: Apply to: affected area metoprolol tartrate 50 mg Tablet 50 mg PO BID Qty: 60 0RF Protocol: Hold for SBP/HR < HOLD for SBP < : 90 HOLD for HR < : 60 acetaminophen 325 mg tablet 650 mg PO Q6H PRN (Reason: pain) Qty: 60 1RF pravastatin 40 mg tablet 40 mg PO DAILY 90 Days Qty: 90 1RF albuterol sulfate 90 mcg/actuation HFA aerosol inhaler 2 puff inhalation Q4-6H PRN (Reason: shortness of breath or wheezing) 30 Days Qty: 8.5 4RF folic acid 1 mg tablet 1 mg PO DAILY Qty: 90 3RF cyanocobalamin (vitamin B-12) 1,000 mcg lozenge 1,000 mcg SUBLINGUAL DAILY Qty: 90 4RF ferrous sulfate [Feosol] 325 mg (65 mg iron) tablet 325 mg PO BID 30 Days Qty: 60 2RF (DME) blood pressure monitor Kit See Rx Instructions .Route Qty: 1 0RF Rx Instructions: check bp twice a week and when not feeling well Discharge Orders: Discharge Order (Routine); Ordered 01/14/25 Ordered By: Ron Garcia Activity on Discharge: As tolerated Stand Alone Forms: Patient Portal Discharge page Print Language: Luxembourgish Care Plan Goals: Follow up PCP Health Concerns: 1. Subclinical hypothyroidism identified during admission, follow up with TSH and T4 in outpatient setting 2. Lung nodule identified on CT chest, follow up in outpatient setting 3. Obtain ppm interrogation ([employer]); unable to obtain during inpatient stay over the weekend Plan of Treatment: Complete antibiotics until completion Assessment: Hemodynamically stable, without recurrence of atrial fibrillation, or syncopal event. Suspicion that this was 2/2 orthostatic hypotension in the setting of rapid change in position, as well as superimposed AFib RVR, the lead to the patient's loss of consciousness. Monitored on telemetry during admission. Ready for discharge
--- NOTE | 2025-01-14 12:48 | MHC.CM.PN ---
Patient medically cleared for dc home self care via lyft.
== END 2025-01-14 14:07 | disposition home or self-care (01) | DRG 194 ==
LOC: HO.ED 17:45 → HO.EDOVER 22:13 → HO.IMC 01-12 19:30
PROVIDERS: Nurse Practitioner Family; Admitting Provider Internal Medicine; Emergency Provider Emergency Medicine; PCP Physician Assistant; Visit Provider Hospitalist
DX: J18.9 Pneumonia, unspecified organism (principal); I31.39 Other pericardial effusion (noninflammatory); J44.0 Chronic obstructive pulmonary disease with (acute) lower respiratory infection; J44.1 Chronic obstructive pulmonary disease with (acute) exacerbation; F17.210 Nicotine dependence, cigarettes, uncomplicated; I48.0 Paroxysmal atrial fibrillation; E03.8 Other specified hypothyroidism; R91.1 Solitary pulmonary nodule; I95.1 Orthostatic hypotension; D50.9 Iron deficiency anemia, unspecified; Z71.6 Tobacco abuse counseling; Z20.822 Contact with and (suspected) exposure to COVID-19; Z79.899 Other long term (current) drug therapy
CPT/HCPCS: 36415; 70450; 71045; 71275; 72125; 80048; 80076; 80307; 81003; 82140; 82550; 82803; 83605; 83690; 83735; 83880; 84145; 84439; 84443; 84481; 84484; 85025; 86140; 86850; 86870; 86900; 86901; 86920; 86922; 87040; 87637; 93005; 93308; 99222; 99285; J0456; J0696; J1163; J7120; Q9967

== ENCOUNTER → 2025-01-11 16:28 | Outpatient (BNV) | payer MEDICARE, SELFPAY | PROVIDERS: Admitting Provider Internal Medicine; Emergency Provider Emergency Medicine; PCP Physician Assistant; Visit Provider Internal Medicine Cardiovascular Disease | DX: R94.31 Abnormal electrocardiogram [ECG] [EKG] (principal); R53.1 Weakness | CPT/HCPCS: 93010 ==

== ENCOUNTER → 2025-01-11 16:28 | Outpatient (BNV) | payer MEDICARE, SELFPAY | PROVIDERS: Emergency Provider Emergency Medicine; PCP Physician Assistant; Visit Provider Radiology Diagnostic Radiology | DX: J90 Pleural effusion, not elsewhere classified (principal); M43.12 Spondylolisthesis, cervical region; I63.89 Other cerebral infarction; J98.11 Atelectasis | CPT/HCPCS: 70450; 71045; 71275; 72125 ==

== ENCOUNTER 2025-01-11 22:04 | Outpatient (BNV) | payer MEDICARE, SELFPAY | END 2025-01-12 12:00 | PROVIDERS: Admitting Provider Internal Medicine; Emergency Provider Emergency Medicine; PCP Physician Assistant; Visit Provider Internal Medicine Cardiovascular Disease | DX: R93.1 Abnormal findings on diagnostic imaging of heart and coronary circulation (principal) | CPT/HCPCS: 93308 ==

== ENCOUNTER → 2025-01-11 22:04 | Outpatient (BNV) | payer MEDICARE, SELFPAY | PROVIDERS: Admitting Provider Internal Medicine; Emergency Provider Emergency Medicine; PCP Physician Assistant; Visit Provider Internal Medicine Cardiovascular Disease | DX: R55 Syncope and collapse (principal) | CPT/HCPCS: 99232 ==

== ENCOUNTER → 2025-01-11 22:04 | Outpatient (BNV) | payer MEDICARE, SELFPAY | PROVIDERS: Admitting Provider Internal Medicine; Emergency Provider Emergency Medicine; PCP Physician Assistant; Visit Provider Nurse Practitioner Family | DX: J43.2 Centrilobular emphysema (principal); I10 Essential (primary) hypertension; D50.0 Iron deficiency anemia secondary to blood loss (chronic); M05.79 Rheumatoid arthritis with rheumatoid factor of multiple sites without organ or systems involvement; R55 Syncope and collapse | CPT/HCPCS: 99222; 99232; 99239 ==

== ENCOUNTER 2025-03-08 14:13 | Emergency (ER) | payer MEDICARE, SELFPAY ==
--- OUTSIDE RECORDS SUMMARY | 2022-11-02 11:38 | XMS_ITS | Encounter Summary ---
Author Organization [facility] Address [address] [place] [address] Phone Care Team Providers Care Designer And Patternmaker Name Role Phone Jolynn Jasmine MEDICAL ONCOLOGY PHYSICIAN Primary Care Provider Encounter Details Date Type Department Care Team (Late st Contact Info) Description 11/02/2022 11:38 AM EDT Hospital Encounter [facility] [address] [place] [address] [phone] Annie Rivers, MEDICAL ONCOLOGY PHYSICIAN [address] [place] [address] [email or web address] Social History Tobacco Use Types Packs/Day Years Used Date Smoking Tobacco: Every Day Cigarettes 0.3 59.1 Started: 02/05/1966 Smokeless Tobacco: Never Alcohol Use Standard Drinks/Week Comments Never 0 (1 standard drink = 0.6 oz pur e alcohol) Education Answer Date Recorded Are you interested in more education? Not on jl e 09/05/2022 Are you concerned about learning? Not on file 09/05/2022 No 09/05/2022 No 09/05/2022 Digital Access Answer Date Recorded No 10/02/2022 No 10/02/2022 Reliable internet access at home? Not on file 10/02/2022 Device with a working camera? Not on file Intimate Partner Violence Answer Date R ecorded Are you denied basic needs s uch as food, clothing, or medical care? No 10/02/2022 In the past 12 months have y ou been in a relationship with a person who hurts, threatens, or tries to control you? No 10/02/2022 Are you denied basic needs s uch as food, clothing, or medical care? No 10/02/2022 In the past 12 months have y ou been in a relationship with a person who hurts, threatens, or tries to control you? No 10/02/2022 Comments Unknown Sex and Gender Information Value Date Recorded Sex Assigned at Not on file Legal Sex Female 1:40 PM EDT Gender Identity Not on file Sexual Orientation Not on file documented as of this encounter Plan of Treatment Not on file documented as of this encounter Procedures Procedure Name Priority Date/Time Associated Diagnosis Comments XR HIP 2 VW RIGHT PLUS PELVIS Urgent/patient waiting 11/02/2022 11:48 AM EDT Right hip pain documented in this encounter Results * XR HIP 2 VW RIGHT PLUS PELVIS (11/02/2022 11:48 AM EDT) Anatomical Region Laterality Modality Hip Right Computed Radiogr aphy 11/02/2022 12:0 6 PM EDT Impressions 11/02/2022 12:07 PM EDT No acute fracture or dislocation of the right hip or pelvis. Narrative 11/02/2022 12:07 PM EDT XR HIP 2 VW RIGHT PLUS PELVIS COMPARISON: None FINDINGS: Pelvis: No displaced fracture. Mild degenerative changes of the sacroiliac joints and lower lumbar spine. Frontal evaluation of the left hip demonstrates normal joint space. Vascular calcifications. Right hip: Femoral neck screws traversing a remote traumatic fracture. No evident acute fracture or dislocation. Procedure Note Sanford Norman MD, PhD - 11/02/2022 XR HIP 2 VW RIGHT PLUS PELVIS COMPARISON: None FINDINGS: Pelvis: No displaced fracture. Mild degenerative changes of the sacroiliacjoints and lower lumbar spine. Frontal evaluation of the left hipdemonstrates normal joint space. Vascular calcifications. Right hip: Femoral neck screws traversing a remote traumatic fracture. Noevident acute fracture or dislocation. IMPRESSION: No acute fracture or dislocation of the right hip or pelvis. us Annie Rivers MEDICAL ONCOLOGY PHYSICIAN IMG XR PELVIS Final Resul t documented in this encounter Visit Diagnoses Not on filedocumented in this encounter Care Teams Designer And Patternmaker Relationship Specialty Start Date End Date Jolynn Jasmine NP PCP - General Nurse Practitioner 10/29/22 documented as of this encounter Additional Source Comments The information contained in this document represents components of the legal health record. It is not the complete legal health record.[facility]
--- NOTE | ~2025-03-08 | XR_ITS ---
CLINICAL HISTORY: ?fluid overload Chest Radiograph Comparison: CT/REG/SR - CT ANGIO CHEST PE PROTOCOL - 01/11/25 20:08 EDT CR - XR CHEST 1V - 01/11/25 17:11 EDT CR - XR CHEST 1V - 09/21/24 19:06 EDT CR - XR CHEST 1V - 09/20/24 17:34 EDT Findings: No cardiomegaly. Left chest wall dual lead cardiac pacemaker. Normal mediastinal contours. No pneumothorax. Linear opacity in the lingula is unchanged and could be scarring or subsegmental atelectasis. No pleural effusion. No acute findings in the upper abdomen. No acute fracture. Impression: No acute findings. No definitive evidence of fluid overload. This document has been electronically signed by: Kayla Contreras MD on 03/08/2025 18:46:45
--- NOTE | ~2025-03-08 | US_ITS ---
EXAMINATION: US TRIPLEX LOWER EXTREMITY, LEFT CLINICAL INFORMATION: Swelling COMPARISON: None available. TECHNIQUE: Color-flow triplex imaging with spectral analysis and compression Doppler were performed on the left lower extremity. FINDINGS: Respiratory variation, normal compression and augmented flow are noted throughout the left lower extremity. The visualized common femoral vein, superficial femoral vein, profunda femoral vein, popliteal vein and midcalf peroneal and posterior tibial venous segments show no evidence of deep venous thrombosis. Large complex partially solid partially cystic lesion in the popliteal fossa measuring 5.3 x 2 x 3.4 cm probably representing a complex Bray's cyst. Subcutaneous edema of the lower leg. US/US venous duplex LE LT IMPRESSION: No evidence of deep venous thrombosis involving the left lower extremity. 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 Electronically signed by: Dayna Horton MD 03/08/2025 05:17 PM EDT
[2025-03-08 14:34] VITALS: BP 140/80; BP 149/75; PULSE 87; PULSE 91; RESP 18; TEMP 36.6; O2SAT 97; O2SAT 99; BMI 20.4
--- NOTE | 2025-03-08 14:43 | ED_ITS ---
HPI - Extremity Problem General Chief complaint: Extremity Problem Stated complaint: BLE SWELLING CALLED IN BY [facility] PER EMS Time Seen by Provider: 03/08/25 14:42 Source: patient and EMS Mode of arrival: EMS Limitations: no limitations History of Present Illness ED Provider: SARAH CH HPI Narrative: 79-year-old female with a history COPD, active smoker, chronic cough, rheumatoid arthritis, chronic iron-deficiency anemia due to diffuse small bowel AVMs, hyperparathyroidism status post parathyroidectomy, HTN, restless leg syndrome BIBA from home for evaluation of left lower and left upper extremity swelling x2 weeks. Admits to chronic swelling to bilateral lower extremities however has noticed increased swelling specifically to her left leg and left hand over the last 2 weeks following a viral illness. Denies ever testing positive for COVID or flu, states I just got over it . She denies fever, chills, chest pain, sob, wheezing, abd pain, N/V/D. No recent travel or long car rides. Not on anticoagulation. Denies history of VTE. Related Data Home Medications ?Medication ?Instructions ?Recorded ?Confirmed omeprazole 20 mg capsule,delayed 20 mg PO DAILY@0630 0 09/19/24 03/09/25 release amlodipine 5 mg tablet 5 mg PO DAILY 01/04/2503/09 ropinirole 1 mg tablet 2 mg PO TID PRN Restless Leg (S) 01/04/25 03/09/25 ferrous sulfate 325 mg (65 mg 325 mg PO DAILY 03/09/25 03/09/25 iron) tablet (Feosol) Previous Rx's ?Medication ?Instructions ?Recorded blood pressure monitor #1 ea 05/22/24 pravastatin 40 mg tablet 40 mg PO DAILY 90 days #90 t abs 09/19/24 Allergies Allergy/AdvReac Type Severity Reaction Status Date / Time oxycodone (From OxyContin) Allergy Mild Hives Verified 03/08/25 14:38 Primeperole Allergy Mild Hives & Uncoded 03/08/25 14:38 Swollen legs Review of Systems 2 Review of Systems: Yes all other systems are reviewed and are negative PMFSH Past Medical History Attestation statement: The following information was validated with the patient. 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 Social History Social History Household Members: None Housing: Apartment Housing Other:: 3rd floor Are you a primary adult care provider to a significant other at home: No Do you presently have visiting nurse or other home services: No Alcohol intake: never Comment: Patient at times refusing bed alarm Patient Tobacco Use Status: Current everyday Tobacco user Tobacco use type: Cigarette Cigarette Packs Per Day: 0.5 Cigarettes Per Day: 15 Years Smoked: 59 e-Cigarette/Vaping Use: Currently Using Second Hand Smoke Exposure: No Advance Directives Date on File: 09/10/23 service: No Current occupational status: retired 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 Skin: Warm, dry, intact. No rashes or lesions. Head: Normocephalic, atraumatic. EENT: Hearing is intact b/l. Conjunctiva clear. PERRLA. EOM intact. Moist mucous membranes.? Cardiac: Chest wall symmetric. RRR Lungs: Normal respiratory effort without accessory muscle use. CTA bilaterally Abdomen: Soft, non-tender, non-distended. No rebound tenderness or guarding Ext: +2+ pitting edema to her LLE, 1+ pitting edema to RLE Neuro: AOx3. Normal speech. Psych: Appropriate mood and affect. Responds appropriately to questions Course Course Course Narrative: CBC showing chronic anemia, secondary to iron deficiency. above transfusion threshold. chemistry without acute electrolyte abnormality requiring intervention. no CAPRICE. liver function wnl. > her pro nt bnp is elevated to 529 however this is well below HF range for her age. chest xray does not demonstrate pulmonary edema. her lungs are cta on exam. recent cardiac echo 1 mo ago shows: Left Ventricle Normal left ventricular cavity size. There is moderately increased left ventricular wall thickness. The left ventricular systolic function is low normal. The visually estimated ejection fraction is between 50-55%. Right Ventricle Normal right ventricular cavity size. There is mildly decreased right ventricular systolic function. There is a pacemaker wire seen in the right ventricle. > presentation is not consistent with anasarca > the venous duplex of her LLE is negative for DVT, it does show a bakers cyst. there are palpable 1+ dp pulses, I do not have suspicion for acute arterial occlusion or ischemic limb. This swelling may be related to vascular dysfunction/capillary leak post viral syndrome. Patient feels as though her gait is unsteady - will place PT/CM consults. Will order PO lasix in the meantime, recommend compression stockings. Reevaluation(s) Reevaluation #1: Time: 08:37 Date: 03/09/25 Provider: Sabrina Arroyo PA-C Patient in physician observation for case management needs, placed yesterday after being medically cleared. No acute events reported overnight.? No current issues or complaints. VS stable. Patient is pending PT/CM eval. Spoke to patient's son who is her healthcare proxy who reports she is full code (updated but no MOLST- will need son to sign if not available). Will continue to monitor. Reevaluation #2: Time: 17:37 Date: 03/10/25 Provider: Sridevi Marte NP Patient in physician observation for case management needs. No acute events reported overnight.? No current issues or complaints. VS stable. Patient is pending placement at facility. Will continue to monitor. Time: 17:10 Date: 03/11/25 Provider: JAMARI Adams Patient in physician observation for case management needs. No acute events reported overnight.? No current issues or complaints. VS stable. Patient is pending placement at facility. We will continue to monitor pending case management disposition. 8:00 AM 03/12/2025 (Siena Varma NP): Physician observation continued, no overnight events reported by nursing. Vitals stable. Per CM, patient likely to dc to [facility] today pending insurance authorization. 9:34 AM 03/12/2025 (Siena Varma NP): Per Natacha from , patient will be discharged to check be rehab via BLS for short-term rehab. Observation care revealed that patient does not meet medical necessity for hospitalization. Final disposition discussed with patient. The patient completed observation care at 10:30am on 03/12/25. Medications Administered Discontinued Medications Generic Name Dose Route Start Last Admin Trade Name Freq PRN Reason Stop Dose Admin Acetaminophen 650 mg 03/09/25 22:53 03/11/25 03:07 Acetaminophen 325 Mg Tablet PO 650 mg Q6H PRN Administration mild pain Amlodipine Besylate 5 mg 03/10/25 09:00 03/12/25 09:24 Amlodipine Besylate 5 Mg Tablet PO 5 mg DAILY GABRIELA Administration Protocol Ferrous Sulfate 324 mg 03/10/25 09:00 03/12/25 09:25 Ferrous Sulfate 324 Mg Tablet. PO 324 mg DAILY GABRIELA Administration Furosemide 20 mg 03/09/25 09:00 03/12/25 09:25 Furosemide 20 Mg Tablet PO 20 mg BID@0900,1800 GABRIELA Administration Protocol Ibuprofen 600 mg 03/10/25 03:57 03/10/25 04:19 Ibuprofen 600 Mg Tablet PO 03/10/25 03:58 600 mg ONCE ONE Administration Ibuprofen 600 mg 03/10/25 03:58 03/12/25 05:03 Ibuprofen 600 Mg Tablet PO 600 mg Q6H PRN Administration Pain, Moderate(Pain Scale 4-6) Omeprazole 20 mg 03/10/25 06:30 03/12/25 05:03 Omeprazole 20 Mg Capsule. PO 20 mg DAILY@0630 GABRIELA Administration Pravastatin Sodium 40 mg 03/10/25 09:00 03/12/25 09:24 Pravastatin Sodium 40 Mg Tablet PO 40 mg DAILY GABRIELA Administration Ropinirole HCl 2 mg 03/10/25 03:55 03/10/25 04:18 Ropinirole Hcl 2 Mg Tablet PO 2 mg TID PRN Administration Restless Leg(S) Medical Decision Making Medical Decision Making [facility] Narrative: 79-year-old female with a history COPD, active smoker, chronic cough, rheumatoid arthritis, chronic iron-deficiency anemia due to diffuse small bowel AVMs, hyperparathyroidism status post parathyroidectomy, HTN, restless leg syndrome BIBA from home for evaluation of left lower and left upper extremity swelling x2 weeks. she is hypertensive, vitals are otherwise wnl. not hypoxic. on exam, her lungs are CTA. there is 2+ pitting edema to LLE, 1+ pitting edema to RLE. no calf tenderness. 1+ dp pulse b/l. Differential diagnosis includes anemia, electrolyte derangement, dependent edema, DVT, post viral syndrome, CHF Plan for labs, imaging, and re-evaluation. Differential Diagnosis Differential Diagnoses: The differential diagnosis associated with the presentation includes as above. Admission/Observation not indicated. Lab Data [facility] Lab Attestation statement: I reviewed the patient's lab results. as above. 03/08/25 15:46 03/08/25 15:46 Labs: Lab Results 03/08/25 Range/Units 15:46 WBC 7.9 (4.8-10.8) X10*3/uL RBC 3.27 L D (4.20-5.50) X10*6/uL Hgb 7.3 L D (12.0-16.0) g/dl Hct 24.9 L D (37.0-47.0) % MCV 76.1 L (80.0-98.0) fL MCH 22.3 L (27.0-33.0) pg MCHC 29.3 L (31.0-35.0) g/dl RDW 21.4 H (11.0-16.0) % Plt Count 583 H D (160-400) X10*3/uL MPV 8.4 L (9.4-12.3) fL Immature Gran % (Auto) 1.0 H (0.0-0.4) % Neut % (Auto) 77.0 H (45-73) % Lymph % (Auto) 11.9 L (20-40) % [place] % (Auto) 7.3 (2-11) % Eos % (Auto) 2.5 (0-4) % Baso % (Auto) 0.3 (0-2) % Lymph # (Auto) 0.9 L (1.2-4.9) X10*3/uL [place] # (Auto) 0.6 (0.1-1.2) X10*3/uL Eos # (Auto) 0.2 (0.0-0.4) X10*3/uL Baso # (Auto) 0.0 (0.0-0.2) X10*3/uL Abs Immat Gran (auto) 0.08 H (0.00-0.03) X10*3/uL Absolute Neuts (auto) 6.1 (2.0-8.3) x10*3/uL Absolute Nucleated RBC 0.000 (0.0-0.012) X10*3/uL Nucleated RBC % (auto) 0.0 (0.0-0.2) /100WBC Sodium 136 (135-145) mmol/L Potassium 4.0 (3.3-5.1) mmol/L Chloride 106 (96-108) mmol/L Carbon Dioxide 23 (22-29) mmol/L Anion Gap 11 L (12-20) BUN 12 (9-16) mg/dL Creatinine 0.55 (0.5-1.4) mg/dL Estim Creat Clear Calc 62.6 Estimated GFR > 60 Random Glucose 85 (60-115) mg/dL Calcium 8.4 (8.4-10.2) mg/dL Total Bilirubin 0.3 (0.0-1.0) mg/dL Direct Bilirubin 0.2 (0.0-0.5) mg/dL AST 22 (5-31) U/L ALT < 6 (0-31) U/L Alkaline Phosphatase 57 (39-117) U/L NT-Pro-B Natriuret Pep 529.4 H (<300) pg/mL Total Protein 6.6 (6.5-8.0) g/dL Albumin 3.0 L (3.5-5.0) g/dL Independent Interpretation I performed an independent interpretation of an: Ultrasound Interpretation: venous duplex w/o DVT chest xray Radiology Impression Discussion of test interpretation with radiology: I have reviewed the radiologist's reading. Radiologist Impression: Procedure(s): US venous duplex LE LT Accession Number(s): [id number] cc: Burke Vazquez PA-C; Sarah Abreu~ Reason for Exam: swelling EXAMINATION: US TRIPLEX LOWER EXTREMITY, LEFT CLINICAL INFORMATION: Swelling COMPARISON: None available. TECHNIQUE: Color-flow triplex imaging with spectral analysis and compression Doppler were performed on the left lower extremity. FINDINGS: Respiratory variation, normal compression and augmented flow are noted throughout the left lower extremity. The visualized common femoral vein, superficial femoral vein, profunda femoral vein, popliteal vein and midcalf peroneal and posterior tibial venous segments show no evidence of deep venous thrombosis. Large complex partially solid partially cystic lesion in the popliteal fossa measuring 5.3 x 2 x 3.4 cm probably representing a complex Bray's cyst. Subcutaneous edema of the lower leg. US/US venous duplex LE LT IMPRESSION: No evidence of deep venous thrombosis involving the left lower extremity. 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 Electronically signed by: Dayna Horton MD 03/08/2025 05:17 PM EDT Independent Historian Clinical information obtained from an independent historian. History obtained from or confirmed by: EMS External Record Review External record reviewed: Inpatient record, Office record, Outpatient record, Prior outpatient labs and Prior outpatient radiology Social Determinants Patient?s care significantly limited by Social Determinants of Health including: Other Social Determinant of Health Critical Care Time Critical Care Time Critical Care Time: No Discharge Plan Discharge Clinical Impression: Edema of extremity Patient Disposition: Xfer Inpatient Rehab Fac Transfer Details: to [facility] via [facility] Instructions: Leg Edema (ED), Edema (ED) Additional Instructions: Follow up with your primary care provider. Return to the emergency department with new or concerning symptoms. Prescriptions: No Action omeprazole 20 mg capsule,delayed release(DR/EC) 20 mg PO DAILY@0630 amlodipine 5 mg tablet 5 mg PO DAILY ropinirole 1 mg tablet 2 mg PO TID PRN (Reason: Restless Leg(S)) ferrous sulfate [Feosol] 325 mg (65 mg iron) tablet 325 mg PO DAILY pravastatin 40 mg tablet 40 mg PO DAILY 90 Days Qty: 90 1RF (DME) blood pressure monitor Kit See Rx Instructions .Route Qty: 1 0RF Rx Instructions: check bp twice a week and when not feeling well Referrals: [facility] [Outside] Referral Note: [phone] Burke Vazquez PA-C [Primary Care Provider, Internal Medicine] - 04/11/25 11:45 am Referral Note: THIS IS AN ALREADY BOOKED APPT BY PT PRIOR TO THIS VISIT Interventions: ED Discharge Assessment Last Done: 03/12/25 10:45 Discharge Date/Time: 03/12/25 10:47 Print Language: Bulgarian
[2025-03-08 15:50] LABS: MANUAL DIFF FLAG NO
--- NOTE | 2025-03-08 15:54 | PC.NURSE ---
Please keep friend/advocate Ralph updated (contact info in chart), friend works w/son who is currently in detention.
[2025-03-08 16:00] LABS: Hematocrit 24.9 % (37.0-47.0); Hemoglobin 7.3 g/dl (12.0-16.0); Imm Gran Abs Auto 0.08 X10*3/uL (0.00-0.03); Imm Gran Pct Auto 1.0 % (0.0-0.4); Lymphocytes Absolute Auto 0.9 X10*3/uL (1.2-4.9); Mean Corpuscular HGB Conc 29.3 g/dl (31.0-35.0); Mean Corpuscular Hemoglobin 22.3 pg (27.0-33.0); Mean Corpuscular Volume 76.1 fL (80.0-98.0); NRBC Abs Auto 0.000 X10*3/uL (0.0-0.012); NRBC Pct Auto 0.0 /100WBC (0.0-0.2); Platelet Count 583 X10*3/uL (160-400); Red Blood Count 3.27 X10*6/uL (4.20-5.50); White Blood Count 7.9 X10*3/uL (4.8-10.8)
[2025-03-08 16:03] LABS: Anion Gap 11 (12-20); Blood Urea Nitrogen 12 mg/dL (9-16); Calcium 8.4 mg/dL (8.4-10.2); Carbon Dioxide 23 mmol/L (22-29); Chloride 106 mmol/L (96-108); Creatinine Clr Calc Pharmacy 62.6; Estimated Glomerular Filt Rate > 60; Potassium 4.0 mmol/L (3.3-5.1); Sodium 136 mmol/L (135-145)
[2025-03-08 16:21] LABS: NT Pro B Type Natriuretic Pept 529.4 pg/mL (<300)
--- OUTSIDE RECORDS SUMMARY | 2025-03-08 18:01 | XMS_ITS | Encounter Summary ---
Author Organization [facility] Address [address] [place] [id number] Phone Care Team Providers Care Civil Engineering Technician Name Role Phone Bradford Bales Primary Care Provider Jennifer Bhagat MD Primary Care Provider [phone] Jolynn Jasmine NP Primary Care Provider Encounter Details Date Type Department Care Team (Late st Contact Info) Description 10/22/2020 Transcribe Orders Virtual Department [address] [place] [id number] Jennifer Bhagat MD [address] [place] [phone] [email or web address] Social History Tobacco Use Types Packs/Day Years [...] documented as of this encounter Care Teams Civil Engineering Technician Relationship Specialty Start Date End Date Bradford Bales PA [address] [place] [id number] PCP - General Unknown Provider Specialty 12/26/20 1 Jennifer Bhagat MD [address] [place] [address] [phone] [email or web address] PCP - General Family Medicine 02/10/21 10/28/22 Jolynn Jasmine NP [address] [place] [address] PCP - General Nurse Practitioner 10/29/22 documented as of this encounter Additional Source Comments The information contained in this document represents components of the legal health record. It is not the complete legal health record.[facility]
--- OUTSIDE RECORDS SUMMARY | 2025-03-08 18:01 | XMS_ITS | Data Portability ---
Author Organization [facility], Main Office Address [address] [place] [address] Care Team Providers Care Lye Bath Operator Name Role Phone CAREONE (NONO UNIT) OTHER ARMANDO WOO Primary Care Provider [phone] Assessment No assessment recorded. Plan of Treatment Reminders Order Date Submit Date Provider Last Modified By Organization Details Last Modified Time Details Appointments None record ed. Lab None record ed. Referral None record ed. Procedures None record ed. Surgeries None record ed. Imaging None record ed. Medication Orders None record ed. Patient TargetsNo targets recorded. Patient InstructionsNo instructions recorded. Reason for Referral None Reported. Problems Name Problem SNOMED Code Status Onset Date Resolution Date Notes Provider Name and Address Organization Details Recorded Time Implantati on procedure Active 2024 Not Available [facility] 20:24:04 Syncope and collapse 498409889 Active 2024 Not Available [facility] 20:24:56 Fracture of third thoracic vertebra 927813633 Active 2024 Not Available [facility] 5 20:27:36 Rheumatoid arthritis 81159809 Active 2024 Not Available [facility] 20:30:19 Interstiti al lung disease 248176115 Active 2024 Not Available [facility] 5 20:31:43 Gastroesop hageal reflux disease without esophagiti s 035319748 Active 2024 Not Available [facility] 5 20:34:54 Osteoporos is 57947548 Active 2024 Not Available [facility] 5 20:35:52 Acute exacerbati on of chronic obstructiv e pulmonary disease 725970603 Active [address], [address], [place], [address] , [facility] 5 11:41:19 Arterioven ous malformati on of duodenum 232463646 Active [address], [address], [place], [address] , [facility] 5 11:41:28 Essential hypertensi on 96100027 Active [address], [facility] [address], [place], [address] , [facility] 5 11:41:33 Calcium pyrophosph ate deposition disease 018857774 Active [address], [facility] [address], [place], [address] , [facility] 5 11:41:38 Iron deficiency anemia due to blood loss 026431812 Active [address], [address], [place], [address] , [facility] 5 11:41:46 Syncope 812951565 Active [address], [address], [place], [address] , [facility] 5 11:41:55 Rheumatoid arthritis of multiple joints 801369629 Active [address], [address], [place], [address] , [facility] 5 11:42:33 Pain of knee region 4704304435 Active [address], [address], [place], [address] , [facility] 5 11:42:46 Closed fracture of third thoracic vertebra 9313832339920 9104 Active [address], [address], [place], [address] , [facility] 5 11:45:16 Hyperparat hyroidism 70167476 Active [address], [place], [address] , [facility] 5 12:09:25 Restless legs syndrome 27302062 Active 2024 GABRIELA LORD [address], [address], [place], [address] , [facility] 5 12:09:32 Smoker 02798584 Active 2024 GABRIELA LORD [address], [place], [address] , [facility] 5 12:16:39 Mixed hyperlipid emia 376570742 Active 2024 GABRIELA LORD [address] [place] [address], [address], [place], [address] , [facility] 5 12:19:02 Sick sinus syndrome 46562265 Active 2024 GABRIELA LORD [address] [place] [address], [address], [place], [address] , [facility] 5 12:20:44 Notes: Do not edit below t his line Other imported id: [id number] Onset Date: 2024-09-25 Resolve date: __ Description: E78.5 HYPERLIPIDEMIA, UNSPECIFIED Note: __ Problem Notes None recorded. Procedures Surgical History Date Name Laterality Status Provider Name and Address Organization Details Recorded Time appendectomy completed GABRIELA LORD [address] [facility], [address], [place], [address], [facility] 09/26/2024 12:11:25 parathyroidectomy completed GABRIELA LO RD [address], [address], [place], [address], [facility] 09/26/2024 12:11:34 Imaging Results None recorded. Procedure Notes None recorded. Medical Equipment None Reported. Allergies Allergen ID Allergen Name Allergen Category Reaction Reaction Severity Criticality Documentation Date Start Date Code Code System Note Provider Name and Address Organization Details Recorded Time 15557 oxycodone medicatio n Not available Not available Not available 09/25/20242024 7804 RxNorm Not Available [facility] 17:08:37 Medications Name Sig Start Date Stop Date Status Note LastModified by Organization Details LastModified Time acetaminophe n 325 mg tablet Give 2 tablet by mouth every 6 hours as needed for Pain Do not exceed 3 grams in 24 hours.Total 650 mg AND Give 2 tablet by mouth every 6 hours as needed for Elevated temp >101 Do not exceed 3 grams in 24 hours.Total 650 mg 2024 active Not Available Not Available Not Avai lable ropinirole 1 mg tablet Give 2 tablet by mouth three times a day for RLS 2024 active Not Available Not Available Not Avai lable pravastatin 40 mg tablet Give 1 tablet by mouth one time a day for Cardiovascu lar Maintenace 2024 active Not Available Not Available Not Avai lable Nicoderm 21 mg/24 hr daily transdermal patch Apply 1 patch transdermal ly in the evening for Smoking Cessation 2024 active Not Available Not Available Not Avai lable hydroxychlor oquine 200 mg tablet Give 1 tablet by mouth one time a day for Rheumatoid Arthritis 2024 active Not Available Not Available Not Avai lable Laxative (sennosides) 8.6 mg tablet Give 1 tablet by mouth every 24 hours as needed for Constipatio n 2024 active Not Available Not Available Not Avai lable Folvite 1 mg tablet Give 1 tablet by mouth one time a day for Chronic iron deficiency anemia 2024 active Not Available Not Available Not Avai lable iron 325 mg (65 mg iron) tablet Give 1 tablet by mouth one time a day for chronic iron deficiency anemia Avoid dairy products, tetracyclin e, etc. within 2 hours. May discolor urine or feces. Take with food or meal if upset stomach occurs. 2024 active Not Available Not Available Not Avai lable sodium phosphates 19 gram-7 gram/197 mL enema Insert 1 unit rectally every 24 hours as needed for Constipatio n Use only if Bisacodyl Suppository is ineffective 2024 active Not Available Not Available Not Avai lable Acid Supervisor Whipped Topping (omeprazole) 20 mg capsule,maurisio yed release Give 1 capsule by mouth one time a day for Gerd Take on empty stomach. Do not crush. May be opened and sprinkled on applesauce. 2024 active Not Available Not Available Not Avai lable Lidocaine Pain Relief 4 % topical patch Apply to Back of Neck, and R knee topically one time a day for Pain Management Apply for 12 Hours in a 24 Hour period. Max dose = 3 patches. External use only. and remove per schedule 2024 active Not Available Not Available Not Avai lable OneLAX Bisacodyl 10 mg rectal suppository Insert 1 suppository rectally every 24 hours as needed for constipatio n Use if Senna is Ineffective 2024 active Not Available Not Available Not Avai lable Vitals Date Recorded Systolic And Diastolic Provider Name and Address Organization Details Last Updated DateTime 10/03/2024 139/76 mm[Hg] GABRIELA MCKINNEY [address] [place] [address], [facility] [address], [place], [address], [facility] 10/03/2024 10:31:36 Social History Question Answer Notes LastModified by Organizat [email or web address] Details LastModified Time Tobacco Smoking Status Current Every Day Smoker GABRIELA MCKINNEY [address] [place] [address], [facility] [address], [place], [address], [facility] 09/26/2024 12:13:13 Which Illicit Or Recreational Drugs Have You Used? Marijuana Information not available 09/26/2024 How Much Tobacco Do You Smoke? 0.5 PPD Information not available 09/26/2024 Has Tobacco Cessation Counseling Been Provided? No Information not available 09/26/2024 How Many Years Have You Smoked Tobacco? 55 Information not available 09/26/2024 Sex: Unknown Functional Status Question Answer Note LastModified by Organizat ion Details LastModified Time Do you use any illicit or recreational drugs? Yes Information not available 09/26/2024 Do you or have you ever used any other forms of tobacco or nicotine? No Information not available 09/26/2024 What is your level of alcohol consumption? None Information not available 09/26/2024 Mental Status None recorded. Family History Relationship Description Onset Age of this Age Resolved Age Notes LastModified by Organization Details LastModified Time Father Coronary arterioscler osis glord Not available 2024 12:11:45 Medical History No medical history recorded. Gynecological HistoryNo gynecological history recorded. Obstetrics History GPAL:G 0 P 0 0 0 0 Immunizations Vaccine Type Date Status Note Provider Nam e and Address Organization Details Recorded Time Td(adult) unspecified formulation 1 completed Ringlys-Barakat [facility], [facility] 09/27/2024 11:21:48 Pneumococcal conjugate PCV 13 6 completed Christ Earnests-Barakat null, [facility] 09/27/2024 11:22:06 pneumococcal polysaccharide PPV23 1 completed Ringlys-Barakat [facility] 09/27/2024 11:22:19 influenza, unspecified formulation 0 completed Ringlys-Barakat [facility] 09/27/2024 11:22:34 influenza, unspecified formulation 1 completed Ringlys-Barakat [facility] 09/27/2024 11:22:39 influenza, unspecified formulation 2 completed Ringlys-Barakat [facility] 09/27/2024 11:22:43 influenza, unspecified formulation 3 completed Ringlys-Barakat null, [facility] 09/27/2024 11:22:48 SARS-COV-2 (COVID-19) vaccine, UNSPECIFIED 1 completed Ringlys-Barakat [facility] 09/27/2024 11:23:04 SARS-COV-2 (COVID-19) vaccine, UNSPECIFIED 1 completed Christ Earnests-Barakat null, [facility] 09/27/2024 11:23:08 SARS-COV-2 (COVID-19) vaccine, UNSPECIFIED 1 completed [facility] 11:23:12 SARS-COV-2 (COVID-19) vaccine, UNSPECIFIED 1 completed Ringlys-Barakat [facility] 09/27/2024 11:23:25 Past Encounters Encounter ID Performer Location Encounter Start Date Encounter Closed Date Diagnosis/Indication Diagnosis SNOMED-CT Code Diagnosis ICD10 Code Diagnosis IMO Codes Diagnosis Note [id number] GABRIELA Espinal at [facility] on [address] [place] [address] 09/26/2024 11:33:27 09/27/2024 13:24:42 Smoker 88711317 F17.200 200677 nicotine patch dailyencou rage cessation Closed fra cture of third thoracic vertebra 4289668993 9018679 S22.038D 00167179 likely old, no interventi oncontinue lidocaine patch dailyPT/OT eval and treatmonit or pain control Iron defic iency anemia due to blood loss 128597124 D50.0 815513 hgb around 9.2continu e vitamin d 3 dailyconti nue folic acid 1 mg dailyvitam in b 12 dailyferro us sulfate 325 mg dailyomepr azole 20 mg dailymonit or labs Syncope 319616288 R55 936162917 see above due to SSS Restless l egs syndrome 68757380 G25.81 904590 requip 2 mg TIDmonitor for comfort Mixed hyperlipidemia 267 747862 E78.2 55821 pravastati n 40 mg dailyPCP to monitor lipds Rheumatoid arthritis of multiple joints 794612871 M06.9 8369936713 continue hydroxychl oroquine 200 mg dailymonit or pain Sick sinus syndrome 3608 3008 I49.5 514943 cause of syncopes/p pacermonit or incision siteno lifting >10 lbs, no raising arm above heartmonit or rate [id number] GABRIELA Espinal at [facility] on [address] [place] [address] 10/03/2024 09:14:29 10/06/2024 19:03:04 Sick sinus syndrome 04907352 I49.5 428996 cause of syncopes/p pacerincis ion site healedno lifting >10 lbs, no raising arm above heart, see HPIfollow up with cards Syncope 980042569 R55 649207723 see above due to SSS Iron defic iency anemia due to blood loss 265657548 D50.0 537207 hgb around 9.2continu e vitamin d 3 dailyconti nue folic acid 1 mg dailyvitam in b 12 dailyferro us sulfate 325 mg dailyomepr azole 20 mg daily Smoker 12199906 F17.200 425647 nicotine patch dailyencou rage cessation Closed fra cture of third thoracic vertebra 7119756159 9963414 S22.038D 52013530 likely old, no interventi oncontinue lidocaine patch daily Restless l egs syndrome 80114283 G25.81 711360 requip 2 mg TID Mixed hyperlipidemia 267 846680 E78.2 51250 pravastati n 40 mg dailyPCP to monitor lipds Rheumatoid arthritis of multiple joints 360877381 M06.9 1655271294 continue hydroxychl oroquine 200 mg daily Health Concerns Section Related Observation LastModified by Organization Detai ls LastModified Time None Recorded Concern Status LastModified by Organization Details LastModified Time None Recorded Advance Directives Directive None Recorded Payers Insurance Date Sequence Insurance Name Policy Number Policy Bentley Covered Member ID Bentley Member ID Guarantor Name 10/03/2024 1 [employer] (MEDICARE REPLACEMENT/ ADVANTAGE - PPO) [id number] Yoli Londono [id number] Yoli Londono Notes Date Note Type Note Provider Name and Address Organization Details Recorded Time 09/26/2024 text/html This is a 79 year old female seen today for initial intake visit. Patient presented to the ED after a syncopal episode in a parking lot. Lab workup was normal, EKG showed prolonged QT interval of [address] of head and neck showed T3 spine fracture but due to patients lack of pain or sxs no intervention was warranted. Pacer evaluated by cards, found to have SSS and pacer was placed.Once stable, she was discharged to complete STR. GABRIELA MCKINNEY [address] [place] [address], [address], [place], [address], [facility] [employer] [facility] 09/26/2024 12:27:18 10/03/2024 text/html This is a 79 year old female seen today for discharge summary visit. Patient was here for rehab a syncopal episode in a parking lot due to bradycardia. She had pacer placed with improvement in her sxs. Per PT: Pt needs to wear sling when sleeping for two weeks since pacemaker placement, may not lift left arm above shoulder level, may not reach left arm behind back, no lifting > 10 lbs, limit weight bearing on LUE, fall risk, cardiac precautions. She is resting in her bed today, dressed and ready to go. She tells me she is anxious to go home no new concerns at this visit. Ok to dc home with meds and services including VNA due to home bound status. GABRIELA MCKINNEY [address] [place] [address], [address], [place], [address], [facility] [employer] 10/03/2024 10:35:17 OBGyn Episode No OBEpisode recorded.
--- OUTSIDE RECORDS SUMMARY | 2025-03-08 18:01 | XMS_ITS | Encounter Summary ---
Author Organization [facility] Address [address] [address] Phone Care Team Providers Care Printing Specialist Name Role Phone Bradford Bales Primary Care Provider Jennifer Bhagat MD Primary Care Provider [phone] Jolynn Jasmine NP Primary Care Provider Encounter Details Date Type Department Care Team (Late st Contact Info) Description 10/24/2020 Transcribe Orders Virtual Department [address] [place] [address] Jennifer Bhagat MD [address] [place] [address] [id number] [email or web address] Cigarette nicotine dependence without complication (Primary Dx) [...] documented as of this encounter Care Teams Printing Specialist Relationship Specialty Start Date End Date Bradford Bales PA [address] [place] [address] PCP - General Unknown Provider Specialty 12/26/20 1 Jennifer Bhagat MD [address] [place] [address] [email or web address] PCP - General Family Medicine 02/10/21 10/28/22 Jolynn Jasmine NP [address] [place] [address] PCP - General Nurse Practitioner 10/29/22 documented as of this encounter Additional Source Comments The information contained in this document represents components of the legal health record. It is not the complete legal health record.[facility]
--- OUTSIDE RECORDS SUMMARY | 2025-03-08 18:01 | XMS_ITS | Clinical Summary ---
Author Organization [facility] Address [address] [phone] Phone Care Team Providers Care 8Th Grade Teacher Name Role Phone Jolynn Jasmine Ally BEATER ENGINEER Primary Care Provider Allergies Active Allergy Reactions [...] to be done April 28, 2021 at [facility] since apparently she is no longer following at [facility] and is following at [facility]. I will give her a follow-up appointment [...] with endocrine surgeon Dr. Cecille Garcia at [facility]. Assessment & Plan (02/05/2021 12:03 PM EDT): [...] 75+ series) 2021 BLOOD PRESSURE 05/04/2023 11/02/2022 INFLUENZA VACCINE (#1) 2024 2, 01/19/2021, 02/04/2020, Additional history exists COVID-19 VACCINE ( season) 2025 02/21/2021, 02/07/2021, 01/31/2021, Additional history exists Adult [...] left forearm and left hip osteoporosis. Wicho Gay DO IMG BD BONE DENSITY DEXA Final R esult from Last 3 Months or Most Recently Relevant to Health Maintenance Insurance MEDICARE PART A & B [facility] ([place]) MEDICARE REPLACEMENT MEDICARE PART A & B [facility] MEDICARE REPLACEMENT MEDICARE PART A & B [employer] O MEDICARE REPLACEMENT MEDICARE PART A & B [facility] ([place] [place]) MEDICARE REPLACEMENT MEDICARE PART A & B [facility] ([place]) MEDICARE REPLACEMENT MEDICARE PART A & B [employer] PPO MEDICARE REPLACEMENT MEDICARE PART A & B MEDICARE PART A & B MEDICARE PART A & B Advance Directives For more information, please contact: [phone] (9AM - 5PM [facility], Wednesday-Wednesday) * Full Code (Latest Code Status on File) Date Activated Date Inactivated Comments 10/03/2022 2:52 AM Question Answer Comments Code Status Confirmed With: Patient Code Status Communicated To: Inpatient Attending Care Teams 8Th Grade Teacher Relationship Specialty Start Date End Date Jolynn Jasmine NP PCP - General Nurse Practitioner 10/29/22 Additional Source Comments The information contained in this document represents components of the legal health record. It is not the complete legal health record.[facility]
[2025-03-08 18:02] LABS: Alanine Aminotransferase < 6 U/L (0-31); Albumin Level 3.0 g/dL (3.5-5.0); Alkaline Phosphatase 57 U/L (39-117); Aspartate Amino Transferase 22 U/L (5-31); Total Protein 6.6 g/dL (6.5-8.0)
[2025-03-08 18:43] VITALS: BP 154/86; PULSE 98; RESP 13; TEMP 36.4; O2SAT 98
--- NOTE | 2025-03-08 19:15 | HO.NURTONUR ---
Reporrt given to overflow, awaiting transport
[2025-03-08 20:21] VITALS: BP 175/89; PULSE 102; RESP 18; TEMP 36.8; O2SAT 99
--- NOTE | 2025-03-08 20:56 | MHC.CM.ED ---
Addendum entered by Erika Manriquez 03/09/25 12:29: PT IS RECOMMENDING STR CM MET WITH PT TO REVIEW BED OFFERS SHE HAS ACCEPTED A BED AT [facility] THEY WILL SUBMIT FOR AUTH PT WILL DC TO [facility] VIA BLS PENDING AUTH Original Note: CM met with patient to discuss discharge planning. Pt with bilateral leg swelling, leg pain and RLS. States having difficulty walking. Pt medically cleared. PT is pending. Pt is agreeable to STR if recommended. Pt lives alone in senior housing. Has a VNA, but cannot remember what agency. Pt states they were supposed to come today, but did not. Medical record states VNA felt patient should come to ED for evaluation. Pt has no home services. Does have MOW. Uses a rollator. Transportation is provided by friends. HCP on file. Will place local referrals. Pt has [employer] insurance.
[2025-03-09] VITALS (8 sets, daily range): BP systolic 133–163; BP diastolic 67–78; PULSE 110–121; RESP 17–20; TEMP 36.6–37.4; O2SAT 96–97
--- NOTE | 2025-03-09 13:55 | PHA.MEDREC ---
Addendum entered by Tianna Oconnor RPh 03/09/25 14:41: [facility] reviewed Original Note: Pharmacy Consult ? Medication Reconciliation Pharmacy has completed the medication reconciliation. Patient is a poor historian, however she called her neighbor and she was able to go to patients house and read off patient Rx bottles.Patient is no longer taking Acetaminophen 325 mg, Albuterol HFA inhaler, Vitamin D3 125 mcg, Folic acid 1 mg, Lidocaine patch, and Metoprolol tart 50 mg. Patient last had her medications yesterday.
--- NOTE | 2025-03-09 23:17 | PC.NURSE ---
pt was given tylenol for c/o generalized pain. will call with any needs. stable condition noted
[2025-03-10] VITALS (8 sets, daily range): BP systolic 100–142; BP diastolic 53–77; PULSE 99–108; RESP 16–20; TEMP 36.8–36.9; O2SAT 93–97
[2025-03-10] MEDS: Ferrous Sulfate 324 MG TABLET.DR PO (08:17)
--- NOTE | 2025-03-10 08:43 | PC.NURSE ---
Pt is alert and oriented. Denies pain at this time. +swelling noted to left arm and mostly L leg. Denies pain, +CMS. Home meds given. Set up for breakfast and tolerating. PT/CM
--- NOTE | 2025-03-10 11:52 | MHC.CM.ED ---
Patient remains in ER. Will d/c to [facility] when ins auth obtained. Anticipate patient will remain in ER until Wednesday. Continue to monitor for d/c needs.
--- NOTE | 2025-03-10 19:39 | PC.NURSE ---
assumed care of pt, eating dinner sitting upright, purewick working as it should, pt respirations are even and unlabored.
--- NOTE | 2025-03-10 23:27 | PC.NURSE ---
verbal report given to Leilani VARGAS in overflow, no questions
[2025-03-11] VITALS (8 sets, daily range): BP systolic 105–128; BP diastolic 61–64; PULSE 93–103; RESP 12–20; TEMP 36.2–36.6; O2SAT 95–98
--- NOTE | 2025-03-11 05:02 | PC.NURSE ---
Assumed care of patient at 2300 in ED OVF. Patient is alert and oriented x 3, calm and cooperative. VSS, reporting intermittent generalized pain, requested PRN tylenol with effect. Utilizing purewick, assist x 1 to turn. Bed in lowest position, locked and alarmed. Call franklin in place. Plan is to d/c to [facility] pending insurance auth.
[2025-03-11] MEDS: Ferrous Sulfate 324 MG TABLET.DR PO (09:02)
--- NOTE | 2025-03-11 12:41 | PC.NURSE ---
Assumed care of patient at 1130 in ED OVF unit. Patient alert and oriented x 3, calm and cooperative with care. VSS, lungs clear/room air. denies any pain at this time. purewick in place, bed alarm on for safety, encouraged patient to use call franklin for any needs.
--- NOTE | 2025-03-12 02:31 | PC.NURSE ---
0230 Patient is alert and oriented x 3, calm and cooperative. Watching television and intermittently napping throughout the night. VSS, reporting intermittent right knee pain, requests PRN Ibuprofen as patient reports it takes away her pain Utilizing purewick, assist x 1 to turn. Buttocks intact without redness. Bed in lowest position, locked and alarmed. Call franklin in place. Plan is to d/c to [facility] pending insurance auth.
[2025-03-12 05:13] VITALS: BP 147/77; PULSE 94; RESP 18; TEMP 37.2; O2SAT 97
[2025-03-12 09:21] VITALS: BP 102/57; PULSE 105; RESP 18; TEMP 36.8; O2SAT 98
[2025-03-12 09:24] VITALS: BP 102/57
[2025-03-12 09:25] VITALS: BP 102/57
[2025-03-12] MEDS: Ferrous Sulfate 324 MG TABLET.DR PO (09:25)
--- NOTE | 2025-03-12 09:40 | MHC.CM.ED ---
Patient remains in ER overflow. Insurance auth has been obtained by [facility]. Patient can leave at 1030am. Riky FERNANDEZ booked. Med nec with chart. Patient, Blaire VARGAS and Siena HEWITT aware. Continue to monitor for d/c needs.
[2025-03-12 10:45] VITALS: BP 102/57; PULSE 105; RESP 18; TEMP 36.8; O2SAT 98
== END 2025-03-12 10:47 ==
PROVIDERS: Physician Assistant; Emergency Provider Emergency Medicine; PCP Physician Assistant
DX: R60.0 Localized edema (principal); M79.89 Other specified soft tissue disorders; M79.605 Pain in left leg; M79.604 Pain in right leg; R05.9 Cough, unspecified; R06.02 Shortness of breath; D64.9 Anemia, unspecified; Z79.899 Other long term (current) drug therapy; F17.210 Nicotine dependence, cigarettes, uncomplicated
CPT/HCPCS: 36415; 71045; 80048; 80076; 83880; 85025; 93971; 97162; 99285

== ENCOUNTER → 2025-03-08 16:04 | Outpatient (BNV) | payer MEDICARE, SELFPAY | PROVIDERS: Emergency Provider Emergency Medicine; PCP Physician Assistant; Visit Provider Radiology Diagnostic Radiology | DX: R60.0 Localized edema (principal) | CPT/HCPCS: 71045; 93971 ==

== ENCOUNTER 2025-04-12 13:02 | Inpatient (IN) | payer MEDICARE, SELFPAY ==
--- NOTE | ~2025-04-12 | CT_ITS ---
CLINICAL HISTORY: Fall CT cervical spine without contrast Comparison: CT/SR - CT CERVICAL SPINE WO IV CON - 01/11/25 17:39 EDT Findings: Moderate dextroscoliosis may be positional. Mild anterolisthesis of C5 on C6. Multilevel degenerative endplate changes of the cervical spine. No high-grade spinal stenosis. No acute fractures or dislocations. Two fracturing No acute findings on limited view of the intracranial contents. Soft tissues of the neck are normal. No consolidation or effusion at the lung apices. IMPRESSION: No acute traumatic abnormality in the cervical spine. This document has been electronically signed by: Norma Swenson MD on 04/12/2025 18:45:23
--- NOTE | ~2025-04-12 | CT_ITS ---
CLINICAL HISTORY: subtle left facial droop, tongue left of midline CT head without contrast Comparison: CT/REG/SR - CT HEAD/BRAIN WO IV CON - 01/11/25 17:39 EDT Findings: No intra-axial mass, midline shift, hydrocephalus, or acute hemorrhage. Old infarct left schwartz radiata and external capsule. Extensive nonspecific white matter hypodensity. Mild atrophy like change. There is no sinus or mastoid fluid. The orbits are within normal limits. There is no acute fracture. IMPRESSION: 1. No acute intracranial findings. This document has been electronically signed by: Heather Chase MD on 04/13/2025 03:21:16
--- NOTE | ~2025-04-12 | XR_ITS ---
EXAMINATION: XR CHEST CLINICAL INFORMATION: rales COMPARISON: 04/12/2025, 03/08/2025. TECHNIQUE: AP view of the chest was obtained. FINDINGS: Left-sided dual lead pacer device noted in place with leads extending into the right atrium and right ventricle. The cardiac, hilar, and mediastinal contours are normal. Aortic mural calcifications. Lungs are hyperaerated with mildly diffuse fine increased interstitial markings bilaterally. The patient's chin obscures the medial left apex. There are extremely subtle right basilar peribronchial opacities, suspicious for bronchopneumonia or small airways disease. There is no pneumothorax or effusion. No focal osseous or soft tissue abnormality. XR/XR chest 1V IMPRESSION: 1. Findings suggestive of COPD. 2. Very subtle right peribronchial opacities, suspicious for right basilar bronchopneumonia and/or inflammatory airways disease. Electronically signed by: Johnny Lockett MD 04/17/2025 04:44 PM [facility]
--- NOTE | ~2025-04-12 | XR_ITS ---
EXAMINATION: XR HIP, RIGHT CLINICAL INFORMATION: Fall, right hip pain COMPARISON: None available. TECHNIQUE: Two views of the right hip. Pelvis 1 view FINDINGS: Right hip: There are postsurgical changes with 3 partially threaded cannulated screws positioned in the proximal femur extending to the femoral neck. Hardware is intact. No suspicious perihardware lucency. No acute fracture or cortical disruption is identified. Right hip joint space is maintained. No acute right pubic rami fractures identified. Vascular calcifications. Pelvis: Left hip joint space is maintained. SI joints and symphysis pubis are intact. Pelvic rings are intact. No acute fractures identified. There is bowel gas and stool projected over the pelvis, sacrum and coccyx, limiting evaluation. No abnormal soft tissue calcification. XR/XR hip RT w PEL1V IMPRESSION: * Postsurgical changes of the right hip, with orthopedic hardware in the proximal femur. No findings to suggest hardware complications. * No radiographic evidence of acute fracture or malalignment of the right hip. Clinically correlate. * No acute fracture is otherwise identified. Electronically signed by: Eran Barreto MD 04/12/2025 02:25 PM [facility]
--- NOTE | ~2025-04-12 | XR_ITS ---
EXAMINATION: XR CHEST 1 VIEW HISTORY: Fall COMPARISON: Comparison is made with the prior examination dated 03/08/2025. FINDINGS: A single AP portable view of the chest performed at 2:13 PM is submitted. A left-sided dual-chamber pacemaker is unchanged in position. Again seen are increased interstitial markings. There are no focal airspace opacities. There is no pleural effusion, pneumothorax, or pulmonary vascular congestion. The heart is normal in size. The aorta is calcified. There is degenerative disc disease of the spine. There are multiple bilateral old healed rib fractures. XR/XR chest 1V IMPRESSION: No acute cardiopulmonary abnormality. Electronically signed by: Mesfin Emmanuel MD 04/12/2025 02:24 PM EST
--- NOTE | ~2025-04-12 | MR_ITS ---
EXAMINATION: MR BRAIN WITHOUT CONTRAST CLINICAL INFORMATION: Aphasia. COMPARISON: Correlated to CT dated April 13, 2025. TECHNIQUE: MRI of the brain was obtained using routine sequences without contrast. FINDINGS: Focal 10 mm hyperintense T2 FLAIR and restricted diffusion without susceptibility centered in the right opercular frontal subcortical white matter. Focal 14 mm hyperintense T2 FLAIR restricted diffusion without susceptibility centered in the right paracentral/posterior frontal subcortical white matter. Focal 5 mm hyperintense T2 FLAIR restricted diffusion without susceptibility cortical subcortical right frontal opercular. No acute intracranial hemorrhage, mass effect, midline shift, hydrocephalus or herniation. Bilateral multifocal patchy and confluent deep periventricular white matter hyperintense T2 FLAIR signal involving centrum semiovale, schwartz radiata and brainstem. Multifocal old lacunar infarcts, basal ganglia. Left frontal schwartz radiata/left extracapsular lacunar infarct with associated susceptibility signal. Prominence of the extra-axial CSF spaces cerebral sulci and ventricles. Hyperintense T2 FLAIR signal extending from the mid daryl to the brachial pontis. Flow-void signal within the main cerebral vessels is normal. Sellar/suprasellar region demonstrated no signal abnormality. Craniocervical junction is intact with normal position of the cerebellar tonsils. MR/MR head/brain wo con IMPRESSION: Acute nonhemorrhagic ischemia/stroke, right frontal opercular region/right MCA distribution likely embolic. Extensive white matter disease and multifocal old lacunar infarcts. Consider small vessel occlusive disease. Old hemorrhagic lacunar infarct, left frontal schwartz radiata white matter/suprainsular/extracapsular. Findings communicated to the requesting physician Dr. Chad Potter via [employer] on April 26, 2025 at 3:32 PM. Responded received. Electronically signed by: Lloyd Vidales MD 04/16/2025 03:34 PM [facility] [place]
--- NOTE | ~2025-04-12 | XR_ITS ---
EXAMINATION: XR KNEE 1-2 VIEWS LEFT HISTORY: knee pain COMPARISON: Comparison is made with the prior examination dated 09/10/2023. FINDINGS: AP and lateral views of the left knee are submitted. Osseous mineralization is normal. There is no fracture or dislocation. The joint spaces are preserved. There is a small joint effusion. There are vascular calcifications. XR/XR knee LT 2V IMPRESSION: Small joint effusion. Otherwise unremarkable examination of the left knee. Electronically signed by: Mesfin Emmanuel MD 04/16/2025 07:40 AM EST
--- NOTE | ~2025-04-12 | CT_ITS ---
CLINICAL HISTORY: Speech abnormalities, R O stroke. CT Head without contrast. CT angiography head and neck with contrast. 3D Postprocessing. Comparison: CT/REG/SR - CT HEAD/BRAIN WO IV CON - 01/11/25 17:39 EDT Findings: HEAD CT: BRAIN: No acute infarct, hemorrhage, or mass effect. Remote left basal ganglia infarct. Scattered periventricular/deep white matter hypodensities, nonspecific, however may represent chronic microvascular ischemic disease. CSF SPACES: No hydrocephalus or effacement of basal cisterns. SKULL: No calvarial fracture. SINUSES: No significant mucosal thickening or effusion on limited views. ORBITS: Limited views are unremarkable. OTHER: Negative. HEAD AND NECK CTA: ANT CIRCULATION: No large vessel occlusion, AVM or aneurysm. POST CIRCULATION: No large vessel occlusion, AVM or aneurysm. See same day CT brain for anatomic interpretation. AORTIC ARCH: Normal aortic arch. No high-grade stenosis. R COMMON CAROTID: No hemodynamically significant stenosis or dissection. R INTERNAL CAROTID: No hemodynamically significant stenosis or dissection. Mild atherosclerotic calcifications at the bifurcation. R EXTERNAL CAROTID: No hemodynamically significant stenosis or dissection. R VERTEBRAL: No high-grade stenosis or dissection. L COMMON CAROTID: No hemodynamically significant stenosis or dissection. L INTERNAL CAROTID: No hemodynamically significant stenosis or dissection. Mild atherosclerotic calcifications at the bifurcation. L EXTERNAL CAROTID: No hemodynamically significant stenosis or dissection. L VERTEBRAL: No high-grade stenosis or dissection. LUNG APEX: Limited views of the lung apices are clear. SOFT TISSUES: The salivary and thyroid glands are within normal limits. No paraspinous soft tissue abnormality. LIMITED SPINE: No evidence of fracture on limited views. IMPRESSION: 1. CT head demonstrates no acute intracranial abnormality. 2. Patent head and neck CTA. This document has been electronically signed by: Norma Swenson MD on 04/12/2025 18:53:23
[2025-04-12 13:06] VITALS: BP 128/71; BP 146/76; PULSE 100; PULSE 96; RESP 15; TEMP 37.2; O2SAT 100; O2SAT 99; BMI 20.7
--- NOTE | 2025-04-12 13:21 | ECG_ITS ---
Test Reason : WEAKNESS Blood Pressure : */* mmHG Vent. Rate : 103 BPM Atrial Rate : 103 BPM P-R Int : 114 ms QRS Dur : 76 ms QT Int : 370 ms P-R-T Axes : 60 45 71 degrees QTcB Int : 484 ms Sinus tachycardia Otherwise normal ECG When compared with ECG of 11-Jan-2025 16:39, T wave inversion no longer evident in Anterior leads Referred By: Mushtaq Dias Electronically Signed By: SHARMIN ROJAS
--- NOTE | 2025-04-12 13:24 | ED_ITS ---
HPI - General Adult General Chief complaint: Weakness Stated complaint: GENERAL WEAKNESS Time Seen by Provider: 04/12/25 13:14 Source: patient Mode of arrival: ambulatory Limitations: no limitations History of Present Illness ED Provider: DR. 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 On arrival patient has a is able to give history only complaint is generalized weakness and right hip area pain with frequent falls at home otherwise no headache, no weakness, no numbness. No dysuria, no frequency urination. Patient stated that yesterday had a few hours of difficulty speaking and expressing herself gradually her symptoms started to resolve and improve, patient now with speaking and able to express herself but still think this is not her normal pattern of speech. Related Data Home Medications ?Medication ?Instructions ?Recorded ?Confirmed omeprazole 20 mg capsule,delayed 20 mg PO DAILY@0630 0 09/19/24 03/09/25 release amlodipine 5 mg tablet 5 mg PO DAILY 01/04/2503/09 ropinirole 1 mg tablet 2 mg PO TID PRN Restless Leg (S) 01/04/25 03/09/25 ferrous sulfate 325 mg (65 mg 325 mg PO DAILY 03/09/25 03/09/25 iron) tablet (Feosol) Previous Rx's ?Medication ?Instructions ?Recorded blood pressure monitor #1 ea 05/22/24 pravastatin 40 mg tablet 40 mg PO DAILY 90 days #90 t abs 09/19/24 Allergies Allergy/AdvReac Type Severity Reaction Status Date / Time oxycodone (From OxyContin) Allergy Mild Hives Verified 04/12/25 13:06 [place] Allergy Mild Hives & Uncoded 03/08/25 14:38 Swollen legs Review of Systems 2 Review of Systems: All other systems are reviewed and are negative Constitutional: Reports as per HPI and Reports no additional constitutional complaints Eyes: Reports as per HPI and Reports no additional eye complaints Reports system reviewed and no additional complaints, except as documented Cardiovascular: Reports as per HPI and Reports no additional cardiovascular complaints Respiratory: Reports as per HPI and Reports no additional respiratory complaints Gastrointestinal: Reports as per HPI and Reports no additional gastrointestinal complaints Genitourinary: Reports no additional female genitourinary complaints Musculoskeletal: Reports no additional musculoskeletal complaints Skin/Breast: Reports system reviewed and no additional complaints, except as docu Psychiatric: Reports no additional psychiatric complaints Endocrine: Reports no additional endocrine complaints Hematologic/Lymphatic: Reports no additional hematologic/lymphatic complaints Allergic/Immunologic: Reports no additional allergic/immunologic complaints Reports system reviewed and no additional complaints, except as documented and Reports Abnormal speech present [facility] Past Medical History Medical History Paroxysmal atrial fibrillation Pericardial effusion Sinus node dysfunction Rheumatoid arthritis Anemia Syncope 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 Social History Social History Household Members: None Housing: Apartment Housing Other:: 3rd floor Are you a primary career development director to a significant other at home: No Do you presently have visiting nurse or other home services: No Alcohol intake: never Comment: Patient at times refusing bed alarm Patient Tobacco Use Status: Current everyday Tobacco user Tobacco use type: Cigarette Cigarette Packs Per Day: 0.5 Cigarettes Per Day: 15 Years Smoked: 59 Smoked in Last 30 Days: Yes e-Cigarette/Vaping Use: Currently Using Second Hand Smoke Exposure: No Use of substances other than those prescribed or required for medical reasons: No Advance Directives: Yes Advance Directives on File: Yes Advance Directives Date on File: 09/10/23 service: No Current occupational status: retired 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 Blood pressure elevated. Heart rate normal. Respiratory rate normal. Temperature normal. Oxygen saturation normal. Appearance: Alert. Oriented X3. No acute distress. Head: Normal external exam. Normocephalic. Atraumatic. No Alcantar signs noted. No raccoon eyes noted Eyes: PERRLA. EOMI. Conjunctiva and sclera normal. Eyelids normal. ENT: TM's Normal. Pharynx normal. Uvula midline. Moist mucous membranes. No trismus noted. No drooling noted. No muffled voice noted. Neck: Normal inspection. Neck supple. FROM. No adenopathy. Thyroid Normal. No meningeal signs. No neck mass noted. CVS: Normal heart rate and rhythm. Heart sound normal. No murmurs noted. Pulses normal throughout. Respiratory: No respiratory distress. Painless inspiration. Breath sounds normal. No wheezes/rales/rhonchi noted. Chest nontender. No accessory muscle usage noted or decreased air movement noted. Abdomen: Soft and nontender. Bowel sounds normal in all 4 quadrants. No distention noted. No organomegaly noted. No visible injury noted. Back: No CVA tenderness. Full range of motion noted. Skin: Skin warm and dry. Normal skin color. Normal skin turgor. No rashes/lesions/lacerations noted. Extremities: No lower extremity edema. Extremities exhibit normal range of motion. Extremities nontender. Neuro: Oriented X 3. Cranial nerve exam: II-XII are grossly intact No motor deficit. No sensory deficit. Reflexes normal. Course Reevaluation(s) Reevaluation #1: 80-year-old female came in for assessment of multiple falls, patient had expressive aphasia for 3 hours yesterday that is not appreciated now. Patient is not candidate for thrombolysis or mechanical thrombectomy. Patient's symptoms was yesterday more than 12 hours ago. Chronic anemia, no acute blood loss. Time: 18:12 Medical Decision Making Differential Diagnosis Differential Diagnoses: The differential diagnosis associated with the presentation includes (Hemorrhagic stroke, ischemic stroke, electrolyte derangement, severe anemia, TIA, dehydration, UTI, pneumonia, pneumothorax, right hip fracture, pelvic fracture.) Admission/Observation Consideration of admission/observation: Escalation of care including admission/observation considered Lab Data MDM Lab Attestation statement: I reviewed the patient's lab results. 04/12/25 13:44 04/12/25 13:44 Labs: Lab Results 04/12/25 04/12/25 Range/Units 13:44 17:32 WBC 5.9 (4.8-10.8) X10*3/uL RBC 3.47 L (4.20-5.50) X10*6/uL Hgb 7.8 L (12.0-16.0) g/dl Hct 25.7 L (37.0-47.0) % MCV 74.1 L (80.0-98.0) fL MCH 22.5 L (27.0-33.0) pg MCHC 30.4 L (31.0-35.0) g/dl RDW 18.5 H (11.0-16.0) % Plt Count 662 H (160-400) X10*3/uL MPV 8.3 L (9.4-12.3) fL Immature Gran % (Auto) 0.7 H (0.0-0.4) % Neut % (Auto) 72.1 (45-73) % Lymph % (Auto) 15.7 L (20-40) % [place] % (Auto) 9.3 (2-11) % Eos % (Auto) 1.9 (0-4) % Baso % (Auto) 0.3 (0-2) % Lymph # (Auto) 0.9 L (1.2-4.9) X10*3/uL [place] # (Auto) 0.6 (0.1-1.2) X10*3/uL Eos # (Auto) 0.1 (0.0-0.4) X10*3/uL Baso # (Auto) 0.0 (0.0-0.2) X10*3/uL Abs Immat Gran (auto) 0.04 H (0.00-0.03) X10*3/uL Absolute Neuts (auto) 4.3 (2.0-8.3) x10*3/uL Absolute Nucleated RBC 0.000 (0.0-0.012) X10*3/uL Nucleated RBC % (auto) 0.0 (0.0-0.2) /100WBC Sodium 137 (135-145) mmol/L Potassium 3.3 (3.3-5.1) mmol/L Chloride 108 (96-108) mmol/L Carbon Dioxide 20 L (22-29) mmol/L Anion Gap 12 (12-20) BUN 9 (9-16) mg/dL Creatinine 0.45 L (0.5-1.4) mg/dL Estim Creat Clear Calc 72.8 Estimated GFR > 60 Random Glucose 89 (60-115) mg/dL Lactic Acid 1.3 (0.5-2.0) mmol/L Calcium 8.6 (8.4-10.2) mg/dL Total Bilirubin 0.3 (0.0-1.0) mg/dL Direct Bilirubin 0.1 (0.0-0.5) mg/dL AST 21 (5-31) U/L ALT < 6 (0-31) U/L Alkaline Phosphatase 62 (39-117) U/L Troponin I High Sens 6.4 D (<3.5-17.0) ng/L Total Protein 6.7 (6.5-8.0) g/dL Albumin 3.3 L (3.5-5.0) g/dL Lipase 15 (8-78) U/L Urine Color Yellow Urine Appearance Clear Urine pH 5.5 (5.0-9.0) Ur Specific [place] 1.020 (1.005-1.025) Urine Protein Trace (Neg-Trace) mg/dL Urine Glucose (UA) Negative (Negative) mg/dL Urine Ketones Negative (Negative) mg/dL Urine Blood Negative (Negative) Urine Nitrite Negative (Negative) Ur Leukocyte Esterase Negative (Negative) Independent Interpretation I performed an independent interpretation of an: Plain X-Ray (Chest: Hip and pelvis x-ray: Postsurgical changes of the right hip, with orthopedic hardware in the proximal femur. No findings to suggest hardware complications. * No radiographic evidence of acute fracture or malalignment of the right hip. Clinically correlate. * No acute fracture is otherw) and CT Scan (Head/CT angio of head and neck:) Radiology Impression Discussion of test interpretation with radiology: I have reviewed the radiologist's reading. Discharge Plan Discharge Clinical Impression: Brain TIA, Adult failure to thrive, Multiple falls Patient Disposition: Admitted As Inpatient Print Language: Chilean
[2025-04-12 13:50] LABS: MANUAL DIFF FLAG NO
[2025-04-12 13:53] LABS: Hematocrit 25.7 % (37.0-47.0); Hemoglobin 7.8 g/dl (12.0-16.0); Imm Gran Abs Auto 0.04 X10*3/uL (0.00-0.03); Imm Gran Pct Auto 0.7 % (0.0-0.4); Lymphocytes Absolute Auto 0.9 X10*3/uL (1.2-4.9); Mean Corpuscular HGB Conc 30.4 g/dl (31.0-35.0); Mean Corpuscular Hemoglobin 22.5 pg (27.0-33.0); Mean Corpuscular Volume 74.1 fL (80.0-98.0); NRBC Abs Auto 0.000 X10*3/uL (0.0-0.012); NRBC Pct Auto 0.0 /100WBC (0.0-0.2); Platelet Count 662 X10*3/uL (160-400); Red Blood Count 3.47 X10*6/uL (4.20-5.50); White Blood Count 5.9 X10*3/uL (4.8-10.8)
--- NOTE | 2025-04-12 13:57 | PC.NURSE ---
pt reports that her speech has felt off for two days. slight facial asymmetry noted in mouth. equally raises eyebrows and puffs out cheeks. speech sounds a little slurred. per pt is has been a couple days of this. Dr. Dias notified, head CT already ordered. NSR on tele. GCS 15 IV placed left forearm. labs sent.
[2025-04-12 14:15] LABS: Alanine Aminotransferase < 6 U/L (0-31); Albumin Level 3.3 g/dL (3.5-5.0); Alkaline Phosphatase 62 U/L (39-117); Anion Gap 12 (12-20); Aspartate Amino Transferase 21 U/L (5-31); Blood Urea Nitrogen 9 mg/dL (9-16); Calcium 8.6 mg/dL (8.4-10.2); Carbon Dioxide 20 mmol/L (22-29); Chloride 108 mmol/L (96-108); Creatinine Clr Calc Pharmacy 72.8; Estimated Glomerular Filt Rate > 60; Lipase 15 U/L (8-78); Potassium 3.3 mmol/L (3.3-5.1); Sodium 137 mmol/L (135-145); Total Protein 6.7 g/dL (6.5-8.0); Troponin-I High Sensitivity 6.4 ng/L (<3.5-17.0)
[2025-04-12 15:07] VITALS: BP 154/80; PULSE 98; RESP 20; TEMP 36.4; O2SAT 97
--- NOTE | 2025-04-12 15:50 | PC.NURSE ---
pt failed nursing swallow screen - water dribbled out of left side of mouth and pt coughed after. states she is hungry. aware
[2025-04-12 17:38] LABS: Appearance Urine Clear; Glucose Urine UA Negative (Negative); PH 5.5 (5.0-9.0); Specific Gravity - Urine 1.020 (1.005-1.025)
--- NOTE | 2025-04-12 18:21 | PHA.MEDREC ---
Addendum entered by Grabiel Diego RPh 04/12/25 18:59: MED REC REVIEWED BY [facility] Original Note: Pharmacy Consult ? Medication Reconciliation Pharmacy has completed the medication reconciliation. Spoke with pt and she confirmed her medications.
[2025-04-12 18:41] VITALS: BP 167/86; PULSE 108; RESP 18; TEMP 36.4; O2SAT 100
--- NOTE | 2025-04-12 18:45 | PC.NURSE ---
hospitalist notified of bedside swallow eval fail. He instructs to try pt on soft/puree pudding/applesauce and she how she does.
--- NOTE | 2025-04-12 19:22 | PM.IMHP ---
History of Present Illness Date of Service: 04/12/25 Chief Complaint: fall and aphasia 80-year-old right-handed female who presented to the ED complaining after having a fall and hit back of her head. Patient also mentioned that she has been having generalized weakness, repeated falls as well as aphasia that began yesterday. Patient with prior history of multiple falls. CT cervical spine with no acute traumatic abnormality, head and neck CTA with remote left basal ganglia infarct, chronic microvascular ischemic disease. Patient admitted for multiple falls as well as aphasia. 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 Surgical History S/P appendectomy H/O parathyroidectomy Status post hip surgery Social History Household Members: None Housing: Apartment Housing Other:: 3rd floor Are you a primary skin care technician to a significant other at home: No Do you presently have visiting nurse or other home services: No Alcohol intake: never Comment: Patient at times refusing bed alarm Patient Tobacco Use Status: Current everyday Tobacco user Tobacco use type: Cigarette Cigarette Packs Per Day: 0.5 Cigarettes Per Day: 15 Years Smoked: 59 Smoked in Last 30 Days: Yes e-Cigarette/Vaping Use: Currently Using Second Hand Smoke Exposure: No Use of substances other than those prescribed or required for medical reasons: No Advance Directives: Yes Advance Directives on File: Yes Advance Directives Date on File: 09/10/23 service: No Current occupational status: retired 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 Current occupational exposures/hazards: No Cognitive needs: No Hearing needs: No Vision needs: Yes Meds Allergies Allergy/AdvReac Type Severity Reaction Status Date / Time oxycodone (From OxyContin) Allergy Mild Hives Verified 04/12/25 13:06 [place] Allergy Mild Hives & Uncoded 03/08/25 14:38 Swollen legs Active Medications: Current Medications Acetaminophen (Acetaminophen 325 Mg Tablet) 650 mg PO Q6H PRN PRN Reason: Pain, Mild 1-3,fever,headache Calcium Carbonate (Calcium Carbonate 750 Mg Tab.Chew) 750 mg PO Q4H PRN PRN Reason: Heartburn Magnesium Hydroxide (Milk Of Magnesia 30 Ml Oral.Susp) 30 ml PO DAILY PRN PRN Reason: Constipation Melatonin (Melatonin 3 Mg Tablet) 6 mg PO BEDTIME PRN PRN Reason: Insomnia Non-Formulary Medication (Ferrous Sulfate [Feosol]) 325 mg PO DAILY GABRIELA Pravastatin Sodium (Pravastatin Sodium 40 Mg Tablet) 40 mg PO DAILY GABRIELA Sodium Chloride (0.9 % Sodium Chloride Flush 3 Ml Syringe) 3 ml IVFLUSH QSHIFT [facility] Home Medications ?Medication ?Instructions ?Recorded ?Confirmed ?Last Taken ?Type omeprazole 20 mg capsule,delayed 20 mg PO DAILY@0630 09/19/24 04/12/25 04/11/25 History release amlodipine 5 mg tablet 5 mg PO DAILY 01/04/25 04/12/25 04/11/25 History ropinirole 1 mg tablet 2 mg PO TID PRN Restless Leg(S) 01/04/25 04/12/25 03/08/25 History ferrous sulfate 325 mg (65 mg 325 mg PO DAILY 03/09/25 04/12/25 04/11/25 History iron) tablet (Feosol) Physical Exam Vital Signs and Narrative: Vital Signs: Last Vital Signs Temp 97.6 F 04/12/25 18:41 Pulse 108 H 04/12/25 18:41 Resp 18 04/12/25 18:41 BP 167/86 H 04/12/25 18:41 Pulse Ox 100 04/12/25 18:41 O2 Del Method Room Air 04/12/25 18:41 BMI result Body Mass Index 20.7 General: AxOx3, No acute distress, frail Head: AT/NC ENT: Moist mucous membranes Neck: supple CVS; RRR, S1 S2 normal Lungs: Clear bilateral breath sounds, no wheezes or crackles Abd: Soft non tender, non distended Ext: No edema and no calf tenderness MSK: moving all 4 limbs Skin: No cyanosis or edema Psych: Cooperative with exam Neurology: Aphasia, bilateral lower extremity weakness 3/5 Results Labs 04/12/25 13:44 04/12/25 13:44 Labs: Laboratory Results - last 24 hr 04/12/25 04/12/25 13:44 17:32 MCV 74.1 L MCH 22.5 L MCHC 30.4 L RDW 18.5 H Plt Count 662 H MPV 8.3 L Immature Gran % (Auto) 0.7 H Neut % (Auto) 72.1 Lymph % (Auto) 15.7 L [place] % (Auto) 9.3 Eos % (Auto) 1.9 Baso % (Auto) 0.3 Lymph # (Auto) 0.9 L [place] # (Auto) 0.6 Eos # (Auto) 0.1 Baso # (Auto) 0.0 Abs Immat Gran (auto) 0.04 H Absolute Neuts (auto) 4.3 Absolute Nucleated RBC 0.000 Nucleated RBC % (auto) 0.0 Anion Gap 12 Estim Creat Clear Calc 72.8 Estimated GFR > 60 Random Glucose 89 Lactic Acid 1.3 Calcium 8.6 Total Bilirubin 0.3 Direct Bilirubin 0.1 AST 21 ALT < 6 Alkaline Phosphatase 62 Troponin I High Sens 6.4 D Total Protein 6.7 Albumin 3.3 L Lipase 15 Urine Color Yellow Urine Appearance Clear Urine pH 5.5 Ur Specific [place] 1.020 Urine Protein Trace Urine Glucose (UA) Negative Urine Ketones Negative Urine Blood Negative Urine Nitrite Negative Ur Leukocyte Esterase Negative Imaging Radiologist's Impressions: Impressions Hip/Pelvis X-Ray 04/12/25 14:12 IMPRESSION: * Postsurgical changes of the right hip, with orthopedic hardware in the proximal femur. No findings to suggest hardware complications. * No radiographic evidence of acute fracture or malalignment of the right hip. Clinically correlate. * No acute fracture is otherwise identified. Electronically signed by: Eran Barreto MD 04/12/2025 02:25 PM EST RP Chest X-Ray 04/12/25 14:13 IMPRESSION: No acute cardiopulmonary abnormality. Electronically signed by: Mesfin Emmanuel MD 04/12/2025 02:24 PM EST RP Assessment and Plan (1) Brain TIA: Status: Acute Plan Assessment: 40-year-old female who presents to the hospital after fall as well as aphasia with last known normal yesterday. with CT imaging done showing remote left basal ganglia infarct as well as chronic microvascular ischemic disease Impression Aphasia, to rule out CVA Dysphagia, failed bedside swallow Syncope with mechanical fall Hyperlipidemia, chronic Ambulatory dysfunction and generalized weakness Adult failure to thrive Suspect anemia of chronic disease Restless leg syndrome Plan Head CTA with remote left basal ganglia infarct as well as chronic microvascular ischemic disease TTE done on 01/12/2025 showed EF of 50-55%, pacemaker in place MRI ordered Aspirin ordered, continue with statin Telemetry ordered Neurology consulted Speech consulted P.T./OT We will hold off on any anticoagulation SCDs ordered FEN: NI, replete as needed, modified diet to eat with nursing at bedside GI PPx: Protonix DVT PPx: SCDs Code Status: Full Code Disposition: All questions and concerns with the patient were answered to satisfaction. All pertinent clinical documents, images and labs were reviewed. DISCLAIMER: This document was created using voice recognition software. Any mistakes in the prescription are unintentional. An attempt was made to focus for accuracy, but to expedite availability, some errors may persist. Please contact with any need for correction or further clarification Total time managing care of this patient today: 75 minutes. Quality Stroke Does the patient have a stroke diagnosis?: No VTE Prior VTE?: No VTE Risk Level:: Medical - moderate - high VTE Device Contraindication: N/A - Device Ordered VTE Drug Contraindication: Treatment Not Indicated
--- NOTE | 2025-04-12 19:29 | MHC.EDTECH ---
pt able to ambulate to and from bathroom x3 times during t/w shift with use of walker and standby assistance
[2025-04-12 20:17] VITALS: BP 178/94; PULSE 108; RESP 20; TEMP 36.3; O2SAT 97
--- NOTE | 2025-04-12 20:59 | MHC.EDTECH ---
pt independently ambulated to hospital bed. call franklin and bed side table within reach. bed alarm on d/t fall risk.
[2025-04-12 22:29] VITALS: BP 168/87; PULSE 100; RESP 20; TEMP 36.7; O2SAT 99
[2025-04-13] VITALS (11 sets, daily range): BP systolic 112–158; BP diastolic 61–81; PULSE 83–127; RESP 16–20; TEMP 36.3–37.1; O2SAT 94–100; BMI 21.1
--- NOTE | 2025-04-13 00:37 | HO.NURTONUR ---
80 y/o Female presented to the ED for mechanical fall at home, pt lost her balance falling backwards hitting her head, -LOC, no blood thinners, per pt she had x2 days ago she was having difficulty speaking and expressing herself, symptoms have resolved since, pt had no difficulty swallowing medication, aaox4, MRI pending in the AM, MRI completed
[2025-04-13] MEDS: Lidocaine 4 % Patch ADH..PATCH 2 PATCH TRANSDERMA ×2 (03:10→08:34)
--- NOTE | 2025-04-13 07:00 | CA_ITS ---
Transthoracic Echocardiogram Patient (Last, First, Middle): Yoli Londono A Gender: Female Date of : 1945 Age: 80 Procedure Date: 04/13/2025 Procedure Type: Transthoracic Echocardiogram [place] [facility] [place] Height: 152.4 cm Weight: 48.99 kg BSA: 1.44 m2 Heart Rate: bpm BP: 158 / 81 mmHg Re Examiner: Referring MD: Chad Gomez MD Symptoms: Aphasia, Possible CVA Study Quality: Good ECG Rhythm: Sinus Conclusions: - The left ventricular systolic function is normal. The calculated ejection fraction is 57% by biplane method. - There is mild aortic valve stenosis. - There is moderate mitral annular calcification. - Mild pulmonary hypertension is present. Findings Left Ventricle Normal left ventricular cavity size. There is mildly increased left ventricular wall thickness. The left ventricular systolic function is normal. The calculated ejection fraction is 57% by biplane method. There is no evidence of regional wall motion abnormalities. Evidence suggests grade I (mild) diastolic dysfunction. Right Ventricle Normal right ventricular cavity size and systolic function. Atria The left atrium is mildly dilated. The right atrium is normal in size. Aortic Valve There is mild calcification of the aortic valve. There is mild aortic valve stenosis. There is no aortic valve regurgitation. Mitral Valve There is moderate mitral annular calcification. There is trace mitral valve regurgitation. There is no mitral valve stenosis. Pulmonic Valve The pulmonic valve is likely normal. Tricuspid Valve There is mild tricuspid valve regurgitation. Mild pulmonary hypertension is present. Great Vessels The asc aorta is normal in size. Venous The inferior vena cava is normal in size and collapses greater than 50% with inspiration. Pericardium/Pleural There is no evidence of pericardial effusion. Prior Study Comparison No significant change compared to prior study dated: 01/12/2025. Measurements 2D Linear Measurements IVSd: 1.24 0.6-0.9/0.6-1.0 cm LVIDd: 3.51 3.9-5.3/4.2-5.9 cm LVIDd Index: 2.44 2.4-3.2/2.2-3.1 cm/m2 LVIDs: 2.41 2.0-3.6 cm LVPWd: 1.23 0.7-1.1 cm Ao Root: 3.20 2.1-3.5 cm LA Diam: 3.60 2.7-3.8/3.0-4.0 cm LAIDs Index: 2.50 1.5-2.3 cm/m2 LV Mass: 177.43 67-162/88-224 g LV Mass Index: 123.21 43-95/49-115 g/m2 LVOT Diam: 2.00 3.0+(-)1.3 cm 2D Systolic Function EF 4C: 59.90 >55% EF 2C: 50.80 >55% EF BiP: 56.60 >55% Mitral Valve MV VTI: 0.32 MV Pk Heriberto: 1.46 MV Mn Heriberto: 0.95 MV Pk Grad: 9.00 MV Mn Grad: 4.00 MV Pk E: 1.16 MV PK A: 1.27 MV Decel Time: 175.00 E/A: 0.90 E'Lateral: 7.72 E'Medial: 5.98 E/E' Med: 19.40 E/E' Lat: 15.00 PHT: 51.00 MVA PHT: 4.31 MVA Continuity: 1.95 Decel [place]: 6.64 Aortic Valve AoV Pk Heriberto: 1.99 AoV Mn Heriberto: 1.26 AoV VTI: 0.44 AoV Pk Grad: 16.00 Aov Mn Grad: 8.00 PINKY Cont.VTI: 1.44 LVOT LVOT Pk Heriberto: 0.83 LVOT Mn Heriberto: 0.52 LVOT VTI: 0.20 LVOT Pk Grad: 3.00 LVOT Mn Grad: 1.00 LVOT Diam: 2.00 LVOT Area: 3.14 Diastolic Function MV Pk E: 1.16 MV Pk A: 1.27 E/A: 0.90 E'Medial: 5.98 E/E' Med: 19.40 E' Laterial: 7.72 E/E' Lat: 15.00 Right Ventricle TAPSE (mm): 24.00 TVS' Heriberto: 15.00 Tricuspid Valve TR Pk Heriberto: 3.17 TR Pk Grad: 40.00 RA Press: 3.00 RVSP: 43.00 Great Vessels Aorta Ao Root-2D: 3.20 2.0-3.7 cm Ao Asc: 3.30 2.1-3.4 cm Pulmonary Valve PV Pk Heriberto: 0.90 Peak PV Grad: 3.00 Updated in Other Vendor System with Status of Final Torres Gibbons MD electronically signed on 04/14/2025 1:12:19 PM with status of Final
[2025-04-13 07:16] LABS: MANUAL DIFF FLAG NO
[2025-04-13 07:37] LABS: Hematocrit 23.8 % (37.0-47.0); Hemoglobin 7.1 g/dl (12.0-16.0); Imm Gran Abs Auto 0.03 X10*3/uL (0.00-0.03); Imm Gran Pct Auto 0.5 % (0.0-0.4); Lymphocytes Absolute Auto 1.2 X10*3/uL (1.2-4.9); Mean Corpuscular HGB Conc 29.8 g/dl (31.0-35.0); Mean Corpuscular Hemoglobin 22.5 pg (27.0-33.0); Mean Corpuscular Volume 75.6 fL (80.0-98.0); NRBC Abs Auto 0.000 X10*3/uL (0.0-0.012); NRBC Pct Auto 0.0 /100WBC (0.0-0.2); Platelet Count 707 X10*3/uL (160-400); Red Blood Count 3.15 X10*6/uL (4.20-5.50); White Blood Count 5.8 X10*3/uL (4.8-10.8)
[2025-04-13 07:55] LABS: Anion Gap 12 (12-20); Blood Urea Nitrogen 7 mg/dL (9-16); Calcium 8.7 mg/dL (8.4-10.2); Carbon Dioxide 22 mmol/L (22-29); Chloride 110 mmol/L (96-108); Cholesterol 111 mg/dL (<200); Creatinine Clr Calc Pharmacy 71.2; Estimated Glomerular Filt Rate > 60; HDL Cholesterol 37 mg/dL (>40); Potassium 3.0 mmol/L (3.3-5.1); Sodium 141 mmol/L (135-145); Triglycerides 92 mg/dL (<150)
[2025-04-13 08:20] LABS: Thyroid Stimulating Hormone 1.03 uIU/mL (0.32-4.0)
[2025-04-13] MEDS: 0.9 % Sodium Chloride Flush 3 ML SYRINGE IVFLUSH ×2 (08:34→21:22)
[2025-04-13] MEDS: Ferrous Sulfate 324 MG TABLET.DR PO (08:34)
[2025-04-13 08:58] LABS: Iron 14 mcg/dL (30-160); Percent Iron Saturation 6 % (15-50); Total Iron Binding Capacity 222 mcg/dL (228-428); Unsaturated Iron Binding 208 ug/dL
--- NOTE | 2025-04-13 10:55 | MHC.CM.PN ---
IMM 04/13/25, Pt. lives alone, PCP confirmed: JAMARI Rojas, HCP is on file: Bhavya. Pt. has difficulty talking, but was able to answer questions and had to repeat a few times for CM to understand response. She does not have home health services, was working on getting some. She has been to [facility] in [facility] past, her preference is to go to [facility], ref to be sent, PT and OT rec is [facility]. DCP: [facility], CM to follow and assist with DCP.
--- NOTE | 2025-04-13 11:53 | P.PNIM_ITS ---
Subjective Subjective Date of Service: 04/13/25 Interval History: Patient seen and examined at bedside this morning, patient with dysarthria, aphasia, awaiting MRI today. Hemoglobin 7.1, we will transfuse 1 unit packed red blood cells, aspirin on hold as patient had history of upper GI bleeding. Review of Systems Review of Systems: Yes all other systems are reviewed and are negative Physical Exam 2 Exam: Exam: General: AxOx3, No acute distress, frail Head: AT/NC ENT: Moist mucous membranes Neck: supple CVS; RRR, S1 S2 normal Lungs: Clear bilateral breath sounds, no wheezes or crackles Abd: Soft non tender, non distended Ext: No edema and no calf tenderness MSK: moving all 4 limbs Skin: No cyanosis or edema Psych: Cooperative with exam Neurology: Aphasia, dysarthria, bilateral lower extremity weakness 3/5 Vital Signs: Vital Signs: Last Vital Signs Temp 98.4 F 04/13/25 11:17 Pulse 99 04/13/25 11:17 Resp 20 04/13/25 11:17 BP 144/78 H 04/13/25 11:17 Pulse Ox 100 04/13/25 11:17 O2 Del Method Room Air 04/13/25 11:17 BMI result Body Mass Index 21.1 Objective Data Active Medications Acetaminophen (Acetaminophen 325 Mg Tablet) 650 mg PO Q6H PRN PRN Reason: Pain, Mild 1-3,fever,headache Last Admin: 04/13/25 11:48 Dose: 650 mg Documented By: KIMBERLY Aspirin (Aspirin 81 Mg Tab.Chew) 81 mg PO DAILY [facility] Last Admin: 04/13/25 08:34 Dose: 81 mg Documented By: KIMBERLY Calcium Carbonate (Calcium Carbonate 750 Mg Tab.Chew) 750 mg PO Q4H PRN PRN Reason: Heartburn Ferrous Sulfate (Ferrous Sulfate 324 Mg Tablet.Dr) 324 mg PO DAILY [facility] Last Admin: 04/13/25 08:34 Dose: 324 mg Documented By: KIMBERLY Lidocaine (Lidocaine 4 % Patch Adh..Patch) 2 patch TRANSDERMA DAILY [facility]; Protocol Last Admin: 04/13/25 08:34 Dose: 2 patch Documented By: KIMBERLY Magnesium Hydroxide (Milk Of Magnesia 30 Ml Oral.Susp) 30 ml PO DAILY PRN PRN Reason: Constipation Melatonin (Melatonin 3 Mg Tablet) 6 mg PO BEDTIME PRN PRN Reason: Insomnia Pantoprazole Sodium (Pantoprazole Sodium 40 Mg/10 Ml Vial) 40 mg IVPUSH DAILY@0630 [facility] Last Admin: 04/13/25 06:59 Dose: 40 mg Documented By: MARIA EUGENIA Potassium Chloride (Potassium Chloride Packet 20 Meq Packet) 40 meq PO BID [facility] Stop: 04/13/25 21:01 Pravastatin Sodium (Pravastatin Sodium 40 Mg Tablet) 40 mg PO DAILY [facility] Last Admin: 04/13/25 08:34 Dose: 40 mg Documented By: KIMBERLY Sodium Chloride (0.9 % Sodium Chloride Flush 3 Ml Syringe) 3 ml IVFLUSH QSHIFT [facility] Last Admin: 04/13/25 08:34 Dose: 3 ml Documented By: KIMBERLY Labs 04/13/25 06:38 04/13/25 06:38 Labs: Laboratory Results - last 24 hr 04/12/25 04/12/25 04/13/25 13:44 17:32 06:38 MCV 74.1 L 75.6 L MCH 22.5 L 22.5 L MCHC 30.4 L 29.8 L RDW 18.5 H 18.3 H Plt Count 662 H 707 H MPV 8.3 L 8.4 L Immature Gran % (Auto) 0.7 H 0.5 H Neut % (Auto) 72.1 61.4 Lymph % (Auto) 15.7 L 20.6 [place] % (Auto) 9.3 11.5 H Eos % (Auto) 1.9 5.5 H Baso % (Auto) 0.3 0.5 Lymph # (Auto) 0.9 L 1.2 [place] # (Auto) 0.6 0.7 Eos # (Auto) 0.1 0.3 Baso # (Auto) 0.0 0.0 Abs Immat Gran (auto) 0.04 H 0.03 Absolute Neuts (auto) 4.3 3.6 Absolute Nucleated RBC 0.000 0.000 Nucleated RBC % (auto) 0.0 0.0 Anion Gap 12 12 Estim Creat Clear Calc 72.8 71.2 Estimated GFR > 60 > 60 Random Glucose 89 79 Lactic Acid 1.3 Calcium 8.6 8.7 Iron TIBC % Saturation Unsat Iron Binding Total Bilirubin 0.3 Direct Bilirubin 0.1 AST 21 ALT < 6 Alkaline Phosphatase 62 Troponin I High Sens 6.4 D Total Protein 6.7 Albumin 3.3 L Triglycerides 92 Cholesterol 111 LDL Cholesterol, Calc 56 HDL Cholesterol 37 L Lipase 15 TSH 1.03 Urine Color Yellow Urine Appearance Clear Urine pH 5.5 Ur Specific [place] 1.020 Urine Protein Trace Urine Glucose (UA) Negative Urine Ketones Negative Urine Blood Negative Urine Nitrite Negative Ur Leukocyte Esterase Negative 04/13/25 08:11 MCV MCH MCHC RDW Plt Count MPV Immature Gran % (Auto) Neut % (Auto) Lymph % (Auto) [place] % (Auto) Eos % (Auto) Baso % (Auto) Lymph # (Auto) [place] # (Auto) Eos # (Auto) Baso # (Auto) Abs Immat Gran (auto) Absolute Neuts (auto) Absolute Nucleated RBC Nucleated RBC % (auto) Anion Gap Estim Creat Clear Calc Estimated GFR Random Glucose Lactic Acid Calcium Iron 14 L TIBC 222 L % Saturation 6 L Unsat Iron Binding 208 Total Bilirubin Direct Bilirubin AST ALT Alkaline Phosphatase Troponin I High Sens Total Protein Albumin Triglycerides Cholesterol LDL Cholesterol, Calc HDL Cholesterol Lipase TSH Urine Color Urine Appearance Urine pH Ur Specific [place] Urine Protein Urine Glucose (UA) Urine Ketones Urine Blood Urine Nitrite Ur Leukocyte Esterase Assessment and Plan (1) Syncope: Status: Acute (2) Multiple falls: Status: Acute Plan Assessment: 80-year-old female who presents to the hospital after fall as well as aphasia with last known normal yesterday. with CT imaging done showing remote left basal ganglia infarct as well as chronic microvascular ischemic disease Impression Aphasia, to rule out CVA Dysphagia, failed bedside swallow Syncope with mechanical fall Hyperlipidemia, chronic Ambulatory dysfunction and generalized weakness Adult failure to thrive Acute on chronic anemia of chronic disease Thrombocytosis Restless leg syndrome Plan Head CTA with remote left basal ganglia infarct as well as chronic microvascular ischemic disease TTE done on 01/12/2025 showed EF of 50-55%, pacemaker in place MRI ordered Aspirin d/c due to worsening anemia, continue with statin Telemetry Neurology consulted P.T./OT We will hold off on any anticoagulation Will order 1 unit of PRBCs, patient agrees on receiving Consult hematology/oncology for thrombocytosis SCDs ordered FEN: NI, replete as needed, modified diet to eat with supervision GI PPx: Protonix DVT PPx: SCDs Code Status: Full Code Disposition: All questions and concerns with the patient were answered to satisfaction. All pertinent clinical documents, images and labs were reviewed. Total time managing care of this patient today: 55 minutes. Quality Stroke Does the patient have a stroke diagnosis?: No VTE Prior VTE?: No VTE Risk Level:: Medical - moderate - high VTE Device Contraindication: N/A - Device Ordered VTE Drug Contraindication: Treatment Not Indicated
[2025-04-13] MEDS: Potassium Chloride Packet 20 MEQ PACKET 40 MEQ PO ×2 (12:27→21:22)
[2025-04-13 12:48] LABS: Ferritin 64 ng/mL (10-250)
--- NOTE | 2025-04-13 13:49 | P.CNNE_ITS ---
History of Present Illness Data of Consult Service Date: 04/13/25 Primary Care Provider: Burke Vazquez PA-C DARYA Kent is a 80-year-old female patient with a past medical history paroxysmal atrial fibrillation, RA, anemia pseudogout anemia osteoporosis, restless leg, COPD, and hypertension who presented to the emergency department for a fall after losing her balance and falling backwards. She had a head strike but no loss of consciousness. She did have some generalized weakness on arrival and pain to the right hip area. She stated that a day prior to her emergency room visits, she had a few hours of difficulty speaking and expressing herself gradually her symptoms started to resolve and improve on their own. Her emergency room workup included a CT of the cervical spine and head with no acute traumatic abnormalities as well as a CTA of the head and neck showing remote left basal ganglia infarct, and chronic microvascular ischemic disease. She had a AGUSTIN completed on 01/12/2025 which showed an EF of 50-55%. She also has a pacemaker in place. Holding aspirin therapy and anticoagulation therapy given her anemia and low hemoglobin level. Hematology was consulted for thrombocytosis. 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 Surgical History Surgical History S/P appendectomy H/O parathyroidectomy Status post hip surgery Social History Social History Household Members: None Housing: Apartment Housing Other:: 3rd floor Are you a primary care mgr to a significant other at home: No Do you presently have visiting nurse or other home services: No Alcohol intake: never Comment: Patient at times refusing bed alarm Patient Tobacco Use Status: Never used Tobacco Tobacco use type: Cigarette Cigarette Packs Per Day: 0.5 Years Smoked: 59 e-Cigarette/Vaping Use: Currently Using Second Hand Smoke Exposure: No Advance Directives Date on File: 09/10/23 service: No Current occupational status: retired 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 Current occupational exposures/hazards: No Cognitive needs: No Hearing needs: No Vision needs: Yes Meds Allergies Allergy/AdvReac Type Severity Reaction Status Date / Time oxycodone (From OxyContin) Allergy Mild Hives Verified 04/12/25 13:06 [place] Allergy Mild Hives & Uncoded 03/08/25 14:38 Swollen legs Active Medications: Current Medications Acetaminophen (Acetaminophen 325 Mg Tablet) 650 mg PO Q6H PRN PRN Reason: Pain, Mild 1-3,fever,headache Last Admin: 04/13/25 11:48 Dose: 650 mg Aspirin (Aspirin 81 Mg Tab.Chew) 81 mg PO DAILY [facility] Last Admin: 04/13/25 08:34 Dose: 81 mg Calcium Carbonate (Calcium Carbonate 750 Mg Tab.Chew) 750 mg PO Q4H PRN PRN Reason: Heartburn Ferrous Sulfate (Ferrous Sulfate 324 Mg Tablet.Dr) 324 mg PO DAILY [facility] Last Admin: 04/13/25 08:34 Dose: 324 mg Lidocaine (Lidocaine 4 % Patch Adh..Patch) 2 patch TRANSDERMA DAILY [facility]; Protocol Last Admin: 04/13/25 08:34 Dose: 2 patch Magnesium Hydroxide (Milk Of Magnesia 30 Ml Oral.Susp) 30 ml PO DAILY PRN PRN Reason: Constipation Melatonin (Melatonin 3 Mg Tablet) 6 mg PO BEDTIME PRN PRN Reason: Insomnia Pantoprazole Sodium (Pantoprazole Sodium 40 Mg/10 Ml Vial) 40 mg IVPUSH DAILY@0630 [facility] Last Admin: 04/13/25 06:59 Dose: 40 mg Potassium Chloride (Potassium Chloride Packet 20 Meq Packet) 40 meq PO BID [facility] Stop: 04/13/25 21:01 Last Admin: 04/13/25 12:27 Dose: 40 meq Pravastatin Sodium (Pravastatin Sodium 40 Mg Tablet) 40 mg PO DAILY [facility] Last Admin: 04/13/25 08:34 Dose: 40 mg Sodium Chloride (0.9 % Sodium Chloride Flush 3 Ml Syringe) 3 ml IVFLUSH QSHIFT [facility] Last Admin: 04/13/25 08:34 Dose: 3 ml Home Medications ?Medication ?Instructions ?Recorded ?Confirmed ?Last Taken ?Type omeprazole 20 mg capsule,delayed 20 mg PO DAILY@0630 0 09/19/24 04/12/25 04/11/25 History release amlodipine 5 mg tablet 5 mg PO DAILY 01/04/2504/1204/11/25 History ropinirole 1 mg tablet 2 mg PO TID PRN Restless Leg (S) 01/04/25 04/12/25 03/08/25 History ferrous sulfate 325 mg (65 mg 325 mg PO DAILY 03/09/25 04/12/25 04/11/25 History iron) tablet (Feosol) Physical Exam 2 Vital Signs: Vital Signs: Last Vital Signs Temp 98.4 F 04/13/25 11:17 Pulse 99 04/13/25 11:17 Resp 20 04/13/25 11:17 BP 144/78 H 04/13/25 11:17 Pulse Ox 100 04/13/25 11:17 O2 Del Method Room Air 04/13/25 11:17 BMI result Body Mass Index 21.1 Const: Orientation/consciousness: patient oriented x3 Neuro: General: patient oriented x3 and Unable to assess gait Cranial nerves: Yes Other cranial nerve findings present (Left facial droop) C ognition (Neuro): normal cognition Speech: Abnormal speech present garbled Gait exam (Neuro): Unable to assess gait Motor exam (neuro): Abnormal motor strength present (Generalized weakness but has slightly more pronounced in the left upper ext) Sensory Exam: Normal double simultaneous stimulation for sensation Results Labs 04/13/25 06:38 04/13/25 06:38 Labs: Short CBC 04/12/25 04/13/25 Range/Units 13:44 06:38 WBC 5.9 5.8 (4.8-10.8) X10*3/uL Hgb 7.8 L 7.1 L (12.0-16.0) g/dl Hct 25.7 L 23.8 L (37.0-47.0) % Plt Count 662 H 707 H (160-400) X10*3/uL BMP 04/12/25 04/13/25 13:44 06:38 Sodium 137 141 Potassium 3.3 3.0 L Chloride 108 110 H Carbon Dioxide 20 L 22 BUN 9 7 L Creatinine 0.45 L 0.46 L Calcium 8.6 8.7 Liver Function 04/12/25 Range/Units 13:44 Total Bilirubin 0.3 (0.0-1.0) mg/dL Direct Bilirubin 0.1 (0.0-0.5) mg/dL AST 21 (5-31) U/L ALT < 6 (0-31) U/L Alkaline Phosphatase 62 (39-117) U/L Albumin 3.3 L (3.5-5.0) g/dL Urine 04/12/25 Range/Units 17:32 Urine Color Yellow Urine Appearance Clear Urine pH 5.5 (5.0-9.0) Ur Specific [place] 1.020 (1.005-1.025) Urine Protein Trace (Neg-Trace) mg/dL Urine Glucose (UA) Negative (Negative) mg/dL Assessment and Plan (1) Atrial fibrillation with RVR: Status: Acute (2) Hyperlipidemia: Qualifiers: Hyperlipidemia type: mixed hyperlipidemia Qualified Code(s): E78.2 - Mixed hyperlipidemia Status: Acute (3) Acute alteration in mental status: Status: Acute (4) CVA (cerebral vascular accident): Status: Acute Plan Yoli is a 80-year-old female patient with a past medical history paroxysmal atrial fibrillation, RA, anemia pseudogout anemia osteoporosis, restless leg, COPD, and hypertension who presented to the emergency department for a fall after losing her balance and falling backwards. CTA of the head and neck showing remote left basal ganglia infarct, and chronic microvascular ischemic disease. She does have a history of paroxysmal atrial fibrillation with pacemaker and recent AGUSTIN showing EF of 50-55%. MRI brain pending. For now, continue statin therapy and blood pressure control. May consider anticoagulation in the future if it is felt safe in regards to her anemia and bleeding risk though contnued risk for falls should also be taken into consideration. I will allow other specialist to weigh in on this as well. Not sure if we could consider a watchman's procedure moving forward. Could also consider fish oil addition which has mild blood thinning properties. Procedures Date of Service Date of Service: 04/13/25
--- NOTE | 2025-04-13 14:52 | PM.HEMONCCN ---
Subjective - Subjective Chief complaint: Speech impairment and weakness Patient: new to practice Consult date: 04/13/25 Primary Care Provider: Burke Vazquez PA-C Targeteer Utilized?: No - German Speaking HPI - Consult Narrative Reason for consult: Thrombocytosis Narrative: Yoli Londono is a 80 year old female past medical history significant for chronic microcytic anemia, rheumatoid arthritis osteoporosis, hyperparathyroidism status post parathyroidectomy and small bowel telangiectasias who is currently admitted for probable stroke. She presented to the ED after having had a fall and hit the back of her head. She has been having dysarthria for 2 days. Patient states that she lives alone. She is aware of anemia but does not recall being told of elevated platelets. She says she has been taking baby aspirin daily. Further workup in the ED with CTA revealed left basal ganglia infarct, chronic microvascular ischemic changes. Transthoracic echo from January showed an EF of 50-55% with pacemaker in place. Blood work was significant for microcytic anemia with a hemoglobin of 7.8 gram/dL and platelets over 600. She denies hematochezia or melena. 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 Surgical History: Surgical History (Last Reviewed 04/13/25 @ 09:32 by Sera Chamorro PT) H/O parathyroidectomy S/P appendectomy Status post hip surgery Social History: Social History (Last Reviewed 04/12/25 @ 13:27 by Mushtaq Dias MD) Living Situation History: Household Members: None Housing: Apartment Housing Other:: 3rd floor Are you a primary rn primary care to a significant other at home: No Do you presently have visiting nurse or other home services: No Tobacco History: Patient Tobacco Use Status: Never used Tobacco Tobacco use type: Cigarette Cigarette Packs Per Day: 0.5 Years Smoked: 59 e-Cigarette/Vaping Use: Currently Using Second Hand Smoke Exposure: No Advance Directives: Advance Directives Date on File: 09/10/23 Occupation Assessmet: service: No Current occupational status: retired 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 Current occupational exposures/hazards: No Home Medications and Allergies Current Medications: Current Medications Acetaminophen (Acetaminophen 325 Mg Tablet) 650 mg PO Q6H PRN PRN Reason: Pain, Mild 1-3,fever,headache Last Admin: 04/13/25 11:48 Dose: 650 mg Aspirin (Aspirin 81 Mg Tab.Chew) 81 mg PO DAILY [facility] Last Admin: 04/13/25 08:34 Dose: 81 mg Calcium Carbonate (Calcium Carbonate 750 Mg Tab.Chew) 750 mg PO Q4H PRN PRN Reason: Heartburn Ferrous Sulfate (Ferrous Sulfate 324 Mg Tablet.Dr) 324 mg PO DAILY [facility] Last Admin: 04/13/25 08:34 Dose: 324 mg Lidocaine (Lidocaine 4 % Patch Adh..Patch) 2 patch TRANSDERMA DAILY [facility]; Protocol Last Admin: 04/13/25 08:34 Dose: 2 patch Magnesium Hydroxide (Milk Of Magnesia 30 Ml Oral.Susp) 30 ml PO DAILY PRN PRN Reason: Constipation Melatonin (Melatonin 3 Mg Tablet) 6 mg PO BEDTIME PRN PRN Reason: Insomnia Pantoprazole Sodium (Pantoprazole Sodium 40 Mg/10 Ml Vial) 40 mg IVPUSH DAILY@629 [facility] Last Admin: 04/13/25 06:59 Dose: 40 mg Potassium Chloride (Potassium Chloride Packet 20 Meq Packet) 40 meq PO BID [facility] Stop: 04/13/25 21:01 Last Admin: 04/13/25 12:27 Dose: 40 meq Pravastatin Sodium (Pravastatin Sodium 40 Mg Tablet) 40 mg PO DAILY [facility] Last Admin: 04/13/25 08:34 Dose: 40 mg Sodium Chloride (0.9 % Sodium Chloride Flush 3 Ml Syringe) 3 ml IVFLUSH QSHIFT [facility] Last Admin: 04/13/25 08:34 Dose: 3 ml Home Medications ?Medication ?Instructions ?Recorded ?Confirmed ?Type omeprazole 20 mg capsule,delayed 20 mg PO DAILY@0630 09/19/24 04/12/25 History release amlodipine 5 mg tablet 5 mg PO DAILY 01/04/25 04/12/25 History ropinirole 1 mg tablet 2 mg PO TID PRN Restless Leg(S) 01/04/25 04/12/25 History ferrous sulfate 325 mg (65 mg 325 mg PO DAILY 03/09/25 04/12/25 History iron) tablet (Feosol) Allergies Allergy/AdvReac Type Severity Reaction Status Date / Time oxycodone (From OxyContin) Allergy Mild Hives Verified 04/12/25 13:06 Primeperole Allergy Mild Hives & Uncoded 03/08/25 14:38 Swollen legs Physical Exam Vital signs: Vital Signs Temp 98.4 F 04/13/25 11:17 Pulse 99 04/13/25 11:17 Resp 20 04/13/25 11:17 BP 144/78 H 04/13/25 11:17 Pulse Ox 100 04/13/25 11:17 O2 Del Method Room Air 04/13/25 11:17 Intake & Output 04/12/25 04/13/25 04/13/25 18:59 06:59 18:59 Intake Total 600 / 600 Balance 600 / 600 Intake: Intake, Oral Amount 600 / 600 Other: Breakfast % Eaten 75% Lunch % Eaten 50% Eating (Feeding) Ability Set Up only Number of Unmeasured Voids 1 1 Urine Bedside Commode Urine Color Yellow Weight 48 kg 49 kg Weight 49 kg Narrative: Speech is garbled, left facial droop. - Constitutional Present: no acute distress, chronically ill appearing - Routine HEENT Exam Head: Present: normal inspection Eye: Present: PERRL - Routine Neck Exam Present: supple. Absent: lymphadenopathy - Routine Respiratory Exam Absent: accessory muscle use, wheezes - Routine Cardiovascular Exam Cardiovascular: Present: S1, S2 - Routine Abdominal Exam Absent: mass - Routine Extremities Exam Present: pulses intact Hem/Onc Consult Result - Labs CBC & Chem 7: 04/13/25 06:38 04/13/25 06:38 Labs: Short CBC 04/13/25 Range/Units 06:38 WBC 5.8 (4.8-10.8) X10*3/uL Hgb 7.1 L (12.0-16.0) g/dl Hct 23.8 L (37.0-47.0) % Plt Count 707 H (160-400) X10*3/uL BMP 04/13/25 06:38 Sodium 141 Potassium 3.0 L Chloride 110 H Carbon Dioxide 22 BUN 7 L Creatinine 0.46 L Calcium 8.7 Urine 04/12/25 Range/Units 17:32 Urine Color Yellow Urine Appearance Clear Urine pH 5.5 (5.0-9.0) Ur Specific [place] 1.020 (1.005-1.025) Urine Protein Trace (Neg-Trace) mg/dL Urine Glucose (UA) Negative (Negative) mg/dL Assessment and Plan Patient Active problem list reviewed?: Yes (1) Thrombocytosis Status: Acute Assessment and plan: 1. This is a 80-year-old woman with past medical history significant for chronic iron-deficiency anemia, COPD, paroxysmal atrial fibrillation, chronic thrombocytosis who is admitted for probable CVA. Hematology consultation has been called because of microcytic anemia and thrombocytosis. This has been chronic and present for many years. She has a history of GI bleeding secondary to bowel telangiectasias. She has had 6 blood transfusions in 2024. Her thrombocytosis has been gradually worsening. Although reactive thrombocytosis secondary to iron-deficiency is a possibility, given the probability of stroke, further testing for essential thrombocytosis/myeloproliferative disorder has to be carried out. I have submitted JAK2 mutation. No prior history of thromboembolism. Lower extremity Doppler in February 2025 was negative for DVT. Patient states that she has been taking a baby aspirin which should be continued. Transfuse blood to keep hemoglobin around 9 gram/dL. If she does have essential thrombocytosis, she would be candidate for cytoreduction with hydroxyurea. Further recommendations for CVA as per Neurology. Thank you for the consultation, will follow with you. - Time Spent With Patient Time Spent with Patient (in minutes): 25 Additional Coding: - Additional E/M codes Complex E/M visit Add On: CPT G2211
--- NOTE | 2025-04-13 15:43 | MHC.SL.SWA ---
Speech Pathologist Impression: Mild to Moderate Oropharyngeal Dysphagia Dysphasia Diet Status: Upgrade to NDD2/NTL Liquid Consistency and Strategies for Safe Swallow: Liquid Intake Recommendation: [place] Thick Solid Food Consistency: Dietary Recommendations: Grnd/Mech Altered (NDD2) Oral Medication Intake: Crushed with Puree Please contact the pharmacy regarding appropriate crushable or liquid drug formulations that are available whenever modified delivery is recommended. Supervision While Eating and Drinking for Safe Swallow: Direct Supervision (1:1) Recommendation for Speech: Inpatient Speech Therapy Comment: Patient presents with mild to moderate oropharyngeal dysphagia, marked by L-facial droop and subsequently week labial seal, spillage of thin liquids from the oral cavity, and coughing on thin liquids. Patient w/ delayed swallow trigger, partial laryngeal elevation, and slowed mastication d/t edentulous status. Recommend UPGRADE from diet ordered per MD to GROUND/MECH ALTERED (NDD2) and NECTAR THICK liquids, pills CRUSHED in PUREE. Encourage independence self-feeding when possible, patient WILL need assistance w/ tray set up and throughout meal to ensure utensils and food items are accessible/within reach, containers opened, etc. Frequency/Duration: Daily M-F Date Range for Service Req: Timeline to reassess: Production Engineer Track Clinican/Clinical Fellow: No Supervisory Statement: I have reviewed and agree with the student/clinical fellow's documentation: N/A Speech Language Pathologist: Abena Sánchez M.A., CCC-STAVE PLANER TENDER
[2025-04-13 21:50] LABS: MANUAL DIFF FLAG NO
[2025-04-13 21:55] LABS: Hematocrit 28.3 % (37.0-47.0); Hemoglobin 8.7 g/dl (12.0-16.0); Imm Gran Abs Auto 0.04 X10*3/uL (0.00-0.03); Imm Gran Pct Auto 0.6 % (0.0-0.4); Lymphocytes Absolute Auto 0.9 X10*3/uL (1.2-4.9); Mean Corpuscular HGB Conc 30.7 g/dl (31.0-35.0); Mean Corpuscular Hemoglobin 22.8 pg (27.0-33.0); Mean Corpuscular Volume 74.3 fL (80.0-98.0); NRBC Abs Auto 0.000 X10*3/uL (0.0-0.012); NRBC Pct Auto 0.0 /100WBC (0.0-0.2); Platelet Count 680 X10*3/uL (160-400); Red Blood Count 3.81 X10*6/uL (4.20-5.50); White Blood Count 7.0 X10*3/uL (4.8-10.8)
[2025-04-13 22:00] LABS: Reticulocytes Absolute 0.058 X10*6/uL (0.026-0.095)
[2025-04-14] VITALS (7 sets, daily range): BP systolic 107–166; BP diastolic 57–86; PULSE 102–126; RESP 12–20; TEMP 36–37.8; O2SAT 95–98
[2025-04-14 00:25] LABS: Folate 7.6 ng/mL (> or = 4.0); Vitamin B12 190 pg/mL (200-900)
[2025-04-14 06:40] LABS: MANUAL DIFF FLAG NO
[2025-04-14 06:46] LABS: Hematocrit 28.3 % (37.0-47.0); Hemoglobin 8.7 g/dl (12.0-16.0); Imm Gran Abs Auto 0.06 X10*3/uL (0.00-0.03); Imm Gran Pct Auto 0.7 % (0.0-0.4); Lymphocytes Absolute Auto 1.3 X10*3/uL (1.2-4.9); Mean Corpuscular HGB Conc 30.7 g/dl (31.0-35.0); Mean Corpuscular Hemoglobin 22.4 pg (27.0-33.0); Mean Corpuscular Volume 72.9 fL (80.0-98.0); NRBC Abs Auto 0.000 X10*3/uL (0.0-0.012); NRBC Pct Auto 0.0 /100WBC (0.0-0.2); Platelet Count 749 X10*3/uL (160-400); Red Blood Count 3.88 X10*6/uL (4.20-5.50); White Blood Count 9.2 X10*3/uL (4.8-10.8)
[2025-04-14 07:58] LABS: Blood Urea Nitrogen 8 mg/dL (9-16); Calcium 8.4 mg/dL (8.4-10.2); Creatinine Clr Calc Pharmacy 65.5; Estimated Glomerular Filt Rate > 60
[2025-04-14 09:15] LABS: Anion Gap 14 (12-20); Carbon Dioxide 21 mmol/L (22-29); Chloride 105 mmol/L (96-108); Potassium 3.8 mmol/L (3.3-5.1); Sodium 136 mmol/L (135-145)
[2025-04-14] MEDS: Lidocaine 4 % Patch ADH..PATCH 2 PATCH TRANSDERMA (09:17)
[2025-04-14] MEDS: Ferrous Sulfate 324 MG TABLET.DR PO (09:17)
[2025-04-14] MEDS: 0.9 % Sodium Chloride Flush 3 ML SYRINGE IVFLUSH ×2 (09:28→23:11)
--- NOTE | 2025-04-14 10:36 | HO.PM.IMPN ---
Subjective Subjective Date of Service: 04/14/25 Interval History: Patient seen and examined at bedside this morning, patient experiencing left knee pain, awaiting MRI on Wednesday, once cleared by wet cotton feeder due to patient having pacemaker in place. Continues with thrombocytosis. Review of Systems Review of Systems: Yes all other systems are reviewed and are negative Physical Exam Exam: Exam: General: AxOx3, No acute distress, frail Head: AT/NC ENT: Moist mucous membranes Neck: supple CVS; RRR, S1 S2 normal Lungs: Clear bilateral breath sounds, no wheezes or crackles Abd: Soft non tender, non distended Ext: No edema and no calf tenderness, left knee pain MSK: moving all 4 limbs Skin: No cyanosis or edema Psych: Cooperative with exam Neurology: Aphasia, dysarthria, bilateral lower extremity weakness 3/5 Vital Signs: Vital Signs: Last Vital Signs Temp 100.0 F 04/14/25 07:41 Pulse 125 H 04/14/25 07:41 Resp 20 04/14/25 07:41 BP 166/70 H 04/14/25 07:41 Pulse Ox 98 04/14/25 07:41 O2 Del Method Room Air 04/14/25 07:41 BMI result Body Mass Index 21.1 Objective Data Active Medications Acetaminophen (Acetaminophen 325 Mg Tablet) 650 mg PO Q6H PRN PRN Reason: Pain, Mild 1-3,fever,headache Last Admin: 04/13/25 11:48 Dose: 650 mg Documented By: KIMBERLY Aspirin (Aspirin 81 Mg Tab.Chew) 81 mg PO DAILY [facility] Last Admin: 04/14/25 09:17 Dose: 81 mg Documented By: GODWIN Calcium Carbonate (Calcium Carbonate 750 Mg Tab.Chew) 750 mg PO Q4H PRN PRN Reason: Heartburn Ferrous Sulfate (Ferrous Sulfate 324 Mg Tablet.Dr) 324 mg PO DAILY [facility] [place] Last Admin: 04/14/25 09:17 Dose: 324 mg Documented By: GODWIN Lidocaine (Lidocaine 4 % Patch Adh..Patch) 2 patch TRANSDERMA DAILY [facility]; Protocol Last Admin: 04/14/25 09:17 Dose: 2 patch Documented By: GODWIN Magnesium Hydroxide (Milk Of Magnesia 30 Ml Oral.Susp) 30 ml PO DAILY PRN PRN Reason: Constipation Melatonin (Melatonin 3 Mg Tablet) 6 mg PO BEDTIME PRN PRN Reason: Insomnia Pantoprazole Sodium (Pantoprazole Sodium 40 Mg/10 Ml Vial) 40 mg IVPUSH DAILY@0630 [facility] [place] Last Admin: 04/14/25 06:31 Dose: 40 mg Documented By: HEATH Pravastatin Sodium (Pravastatin Sodium 40 Mg Tablet) 40 mg PO DAILY [facility] [place] Last Admin: 04/14/25 09:17 Dose: 40 mg Documented By: GODWIN Sodium Chloride (0.9 % Sodium Chloride Flush 3 Ml Syringe) 3 ml IVFLUSH QSHIFT [facility] [place] Last Admin: 04/14/25 09:28 Dose: 3 ml Documented By: GODWIN Tramadol HCl (Tramadol Hcl 50 Mg Tablet) 25 mg PO ONCE ONE Stop: 04/14/25 10:32 Labs 04/14/25 06:06 04/14/25 06:06 Labs: Laboratory Results - last 24 hr 04/13/25 04/13/25 04/13/25 08:11 12:04 14:26 MCV MCH MCHC RDW Plt Count MPV Immature Gran % (Auto) Neut % (Auto) Lymph % (Auto) [place] % (Auto) Eos % (Auto) Baso % (Auto) Lymph # (Auto) [place] # (Auto) Eos # (Auto) Baso # (Auto) Abs Immat Gran (auto) Absolute Neuts (auto) Absolute Nucleated RBC Nucleated RBC % (auto) Absolute Retic Percent Retic Immature Retic Fraction Retic Hgb Equivalent Anion Gap Estim Creat Clear Calc Estimated GFR Random Glucose Haptoglobin 331 H Calcium Ferritin 64 Lactate Dehydrogenase 218 Vitamin B12 190 L Folate 7.6 Blood Type A Positive Antibody Screen POSITIVE Antibody Identification Inconclusive Crossmatch (AHG) See Detail Blood Bank Comment Technical 04/13/25 04/14/25 21:38 06:06 MCV 74.3 L 72.9 L MCH 22.8 L 22.4 L MCHC 30.7 L 30.7 L RDW 18.0 H 18.3 H Plt Count 680 H 749 H MPV 8.2 L 8.4 L Immature Gran % (Auto) 0.6 H 0.7 H Neut % (Auto) 74.0 H 72.1 Lymph % (Auto) 12.4 L 14.3 L [place] % (Auto) 9.7 11.1 H Eos % (Auto) 3.0 1.6 Baso % (Auto) 0.3 0.2 Lymph # (Auto) 0.9 L 1.3 [place] # (Auto) 0.7 1.0 Eos # (Auto) 0.2 0.2 Baso # (Auto) 0.0 0.0 Abs Immat Gran (auto) 0.04 H 0.06 H Absolute Neuts (auto) 5.2 6.6 Absolute Nucleated RBC 0.000 0.000 Nucleated RBC % (auto) 0.0 0.0 Absolute Retic 0.058 Percent Retic 1.5 Immature Retic Fraction 28.9 H Retic Hgb Equivalent 19.3 L Anion Gap 14 Estim Creat Clear Calc 65.5 Estimated GFR > 60 Random Glucose 108 Haptoglobin Calcium 8.4 Ferritin Lactate Dehydrogenase Vitamin B12 Folate Blood Type Antibody Screen Antibody Identification Crossmatch ([facility]) Blood Bank Comment Microbiology Microbiology Results: Microbiology 04/12/25 13:53 Blood Culture - Preliminary Blood - Venous No growth after 24 hours. 04/12/25 13:44 Blood Culture - Preliminary Blood - Venous No growth after 24 hours. Assessment and Plan (1) Syncope: Status: Acute (2) Multiple falls: Status: Acute Plan Assessment: 80-year-old female who presents to the hospital after fall as well as aphasia with last known normal yesterday. with CT imaging done showing remote left basal ganglia infarct as well as chronic microvascular ischemic disease Impression Aphasia, to rule out CVA Dysphagia Syncope with mechanical fall Hyperlipidemia, chronic Ambulatory dysfunction and generalized weakness Adult failure to thrive Acute on chronic anemia of chronic disease, s/p Blood transfusion given with improvement of Hb Thrombocytosis Restless leg syndrome Left knee pain Plan Head CTA with remote left basal ganglia infarct as well as chronic microvascular ischemic disease TTE done on 01/12/2025 showed EF of 50-55%, pacemaker in place MRI ordered, to be done on Wednesday Continue with statin, will continue with ASA, patient placed on Protonix Telemetry Neurology consulted P.T./OT We will hold off on anticoagulation at this time, given multiple falls with trauma await for MRI Will order 1 unit of PRBCs, patient agrees on receiving Consulted hematology/oncology for thrombocytosis SCDs ordered xray ordered, tylenol given, lidocaine patch, will give small dose of tramadol FEN: NI, replete as needed, modified diet to eat with supervision GI PPx: Protonix DVT PPx: SCDs Code Status: Full Code Disposition: All questions and concerns with the patient were answered to satisfaction. All pertinent clinical documents, images and labs were reviewed. Total time managing care of this patient today: 55 minutes. Quality Stroke Does the patient have a stroke diagnosis?: No VTE Prior VTE?: No VTE Risk Level:: Medical - moderate - high VTE Device Contraindication: N/A - Device Ordered VTE Drug Contraindication: Treatment Not Indicated
[2025-04-15] VITALS (7 sets, daily range): BP systolic 106–167; BP diastolic 60–84; PULSE 76–119; RESP 18–20; TEMP 36.3–37.3; O2SAT 93–98
[2025-04-15 08:00] LABS: MANUAL DIFF FLAG NO
[2025-04-15 08:04] LABS: Hematocrit 28.9 % (37.0-47.0); Hemoglobin 8.7 g/dl (12.0-16.0); Imm Gran Abs Auto 0.11 X10*3/uL (0.00-0.03); Imm Gran Pct Auto 1.0 % (0.0-0.4); Lymphocytes Absolute Auto 1.2 X10*3/uL (1.2-4.9); Mean Corpuscular HGB Conc 30.1 g/dl (31.0-35.0); Mean Corpuscular Hemoglobin 22.4 pg (27.0-33.0); Mean Corpuscular Volume 74.5 fL (80.0-98.0); NRBC Abs Auto 0.000 X10*3/uL (0.0-0.012); NRBC Pct Auto 0.0 /100WBC (0.0-0.2); Platelet Count 756 X10*3/uL (160-400); Red Blood Count 3.88 X10*6/uL (4.20-5.50); White Blood Count 10.9 X10*3/uL (4.8-10.8)
[2025-04-15 08:22] LABS: Anion Gap 15 (12-20); Blood Urea Nitrogen 16 mg/dL (9-16); Calcium 8.6 mg/dL (8.4-10.2); Carbon Dioxide 22 mmol/L (22-29); Chloride 102 mmol/L (96-108); Creatinine Clr Calc Pharmacy 61.8; Estimated Glomerular Filt Rate > 60; Potassium 3.9 mmol/L (3.3-5.1); Sodium 135 mmol/L (135-145)
[2025-04-15] MEDS: Lidocaine 4 % Patch ADH..PATCH 2 PATCH TRANSDERMA (09:50)
[2025-04-15] MEDS: 0.9 % Sodium Chloride Flush 3 ML SYRINGE IVFLUSH ×2 (09:51→23:27)
[2025-04-15] MEDS: Ferrous Sulfate 324 MG TABLET.DR PO (09:51)
--- NOTE | 2025-04-15 10:49 | P.PNIM_ITS ---
Subjective Subjective Date of Service: 04/15/25 Interval History: Patient seen and examined at bedside this morning, patient states that she is experiencing left knee pain since yesterday, improved after having 1 dose of tramadol. Awaiting for MRI tomorrow. Review of Systems Review of Systems: Yes all other systems are reviewed and are negative Physical Exam 2 Exam: Exam: General: AxOx3, No acute distress, frail Head: AT/NC ENT: Moist mucous membranes Neck: supple CVS; RRR, S1 S2 normal Lungs: Clear bilateral breath sounds, no wheezes or crackles Abd: Soft non tender, non distended Ext: No edema and no calf tenderness, left knee pain MSK: moving all 4 limbs Skin: No cyanosis or edema Psych: Cooperative with exam Neurology: Aphasia, dysarthria, bilateral lower extremity weakness 3/5 Vital Signs: Vital Signs: Last Vital Signs Temp 98.3 F 04/15/25 07:37 Pulse 117 H 04/15/25 07:37 Resp 20 04/15/25 07:37 BP 152/84 H 04/15/25 07:37 Pulse Ox 97 04/15/25 07:37 O2 Del Method Room Air 04/15/25 07:37 BMI result Body Mass Index 21.1 Objective Data Active Medications Acetaminophen (Acetaminophen 325 Mg Tablet) 650 mg PO Q6H PRN PRN Reason: Pain, Mild 1-3,fever,headache Last Admin: 04/15/25 03:30 Dose: 650 mg Documented By: HEATH Aspirin (Aspirin 81 Mg Tab.Chew) 81 mg PO DAILY [facility] Last Admin: 04/15/25 09:51 Dose: 81 mg Documented By: GODWIN Calcium Carbonate (Calcium Carbonate 750 Mg Tab.Chew) 750 mg PO Q4H PRN PRN Reason: Heartburn Ferrous Sulfate (Ferrous Sulfate 324 Mg Tablet.Dr) 324 mg PO DAILY [facility] Last Admin: 04/15/25 09:51 Dose: 324 mg Documented By: GODWIN Lidocaine (Lidocaine 4 % Patch Adh..Patch) 2 patch TRANSDERMA DAILY [facility]; Protocol Last Admin: 04/15/25 09:50 Dose: 2 patch Documented By: GODWIN Magnesium Hydroxide (Milk Of Magnesia 30 Ml Oral.Susp) 30 ml PO DAILY PRN PRN Reason: Constipation Melatonin (Melatonin 3 Mg Tablet) 6 mg PO BEDTIME PRN PRN Reason: Insomnia Pantoprazole Sodium (Pantoprazole Sodium 40 Mg/10 Ml Vial) 40 mg IVPUSH DAILY@0630 [facility] Last Admin: 04/15/25 05:52 Dose: 40 mg Documented By: HEATH Pravastatin Sodium (Pravastatin Sodium 40 Mg Tablet) 40 mg PO DAILY [facility] Last Admin: 04/15/25 09:51 Dose: 40 mg Documented By: GODWIN Sodium Chloride (0.9 % Sodium Chloride Flush 3 Ml Syringe) 3 ml IVFLUSH QSHIFT [facility] Last Admin: 04/15/25 09:51 Dose: 3 ml Documented By: GODWIN Tramadol HCl (Tramadol Hcl 50 Mg Tablet) 25 mg PO Q6H PRN PRN Reason: Pain, Severe (Pain Scale 7-10) Labs 04/15/25 06:42 04/15/25 06:41 Labs: Laboratory Results - last 24 hr 04/15/25 04/15/25 06:41 06:42 MCV 74.5 L MCH 22.4 L MCHC 30.1 L RDW 18.5 H Plt Count 756 H MPV 8.8 L Immature Gran % (Auto) 1.0 H Neut % (Auto) 75.5 H Lymph % (Auto) 10.6 L [place] % (Auto) 10.9 Eos % (Auto) 1.8 Baso % (Auto) 0.2 Lymph # (Auto) 1.2 [place] # (Auto) 1.2 Eos # (Auto) 0.2 Baso # (Auto) 0.0 Abs Immat Gran (auto) 0.11 H Absolute Neuts (auto) 8.2 Absolute Nucleated RBC 0.000 Nucleated RBC % (auto) 0.0 Anion Gap 15 Estim Creat Clear Calc 61.8 Estimated GFR > 60 Random Glucose 96 Calcium 8.6 Microbiology Microbiology Results: Microbiology 04/12/25 13:53 Blood Culture - Preliminary Blood - Venous No growth after 48 hours. 04/12/25 13:44 Blood Culture - Preliminary Blood - Venous No growth after 48 hours. Assessment and Plan (1) Syncope: Status: Acute (2) Multiple falls: Status: Acute Plan Assessment: 80-year-old female who presents to the hospital after fall as well as aphasia with last known normal yesterday. with CT imaging done showing remote left basal ganglia infarct as well as chronic microvascular ischemic disease Impression Aphasia, suspect CVA Dysphagia Syncope with mechanical fall Hyperlipidemia, chronic Ambulatory dysfunction and generalized weakness Adult failure to thrive Acute on chronic anemia of chronic disease, s/p Blood transfusion given with improvement of Hb, improved Thrombocytosis Restless leg syndrome Left knee pain Plan Head CTA with remote left basal ganglia infarct as well as chronic microvascular ischemic disease TTE done on 01/12/2025 showed EF of 50-55%, pacemaker in place MRI ordered, to be done on Wednesday Continue with statin, will continue with ASA, patient placed on Protonix Telemetry Neurology consulted P.T./OT We will hold off on anticoagulation at this time, given multiple falls with trauma await for MRI Consulted hematology/oncology for thrombocytosis SCDs ordered xray ordered, tylenol given, lidocaine patch, will initiate PRN tramadol FEN: NI, replete as needed, modified diet to eat with supervision GI PPx: Protonix DVT PPx: SCDs Code Status: Full Code Disposition: All questions and concerns with the patient were answered to satisfaction. All pertinent clinical documents, images and labs were reviewed. Total time managing care of this patient today: 55 minutes. Quality Stroke Does the patient have a stroke diagnosis?: No VTE Prior VTE?: No VTE Risk Level:: Medical - moderate - high VTE Device Contraindication: N/A - Device Ordered VTE Drug Contraindication: Treatment Not Indicated
[2025-04-16 02:43] VITALS: PULSE 112
[2025-04-16 03:09] VITALS: BP 153/76; PULSE 123; RESP 18; TEMP 36.8; O2SAT 96
[2025-04-16 08:00] VITALS: BP 125/65; PULSE 76; RESP 18; TEMP 36.4; O2SAT 96
[2025-04-16] MEDS: Ferrous Sulfate 324 MG TABLET.DR PO (08:18)
[2025-04-16] MEDS: 0.9 % Sodium Chloride Flush 3 ML SYRINGE IVFLUSH ×3 (08:19→20:39)
[2025-04-16] MEDS: Lidocaine 4 % Patch ADH..PATCH 2 PATCH TRANSDERMA (08:19)
[2025-04-16 09:14] LABS: Hematocrit 28.2 % (37.0-47.0); Hemoglobin 8.6 g/dl (12.0-16.0); Mean Corpuscular HGB Conc 30.5 g/dl (31.0-35.0); Mean Corpuscular Hemoglobin 22.3 pg (27.0-33.0); Mean Corpuscular Volume 73.2 fL (80.0-98.0); NRBC Abs Auto 0.000 X10*3/uL (0.0-0.012); NRBC Pct Auto 0.0 /100WBC (0.0-0.2); Platelet Count 763 X10*3/uL (160-400); Red Blood Count 3.85 X10*6/uL (4.20-5.50); White Blood Count 8.8 X10*3/uL (4.8-10.8)
--- NOTE | 2025-04-16 09:28 | HO.PM.IMPN ---
Subjective Subjective Date of Service: 04/16/25 Interval History: Patient seen and examined at bedside this morning, possible MRI today if able to coordinate with [facility]. Patient states that she is having left knee pain Review of Systems Review of Systems: Yes all other systems are reviewed and are negative Physical Exam Exam: Exam: General: AxOx3, No acute distress, frail Head: AT/NC ENT: Moist mucous membranes Neck: supple CVS; RRR, S1 S2 normal Lungs: Clear bilateral breath sounds, no wheezes or crackles Abd: Soft non tender, non distended Ext: No edema and no calf tenderness, left knee pain MSK: moving all 4 limbs Skin: No cyanosis or edema Psych: Cooperative with exam Neurology: Aphasia, dysarthria, bilateral lower extremity weakness 3/5 Vital Signs: Vital Signs: Last Vital Signs Temp 98.2 F 04/16/25 03:09 Pulse 123 H 04/16/25 03:09 Resp 18 04/16/25 03:09 BP 153/76 H 04/16/25 03:09 Pulse Ox 96 04/16/25 03:09 O2 Del Method Room Air 04/16/25 03:09 BMI result Body Mass Index 21.1 Objective Data Active Medications Acetaminophen (Acetaminophen 325 Mg Tablet) 650 mg PO Q6H PRN PRN Reason: Pain, Mild 1-3,fever,headache Last Admin: 04/15/25 03:30 Dose: 650 mg Documented By: HEATH Aspirin (Aspirin 81 Mg Tab.Chew) 81 mg PO DAILY [facility] Last Admin: 04/16/25 08:18 Dose: 81 mg Documented By: ELIZABETH Calcium Carbonate (Calcium Carbonate 750 Mg Tab.Chew) 750 mg PO Q4H PRN PRN Reason: Heartburn Ferrous Sulfate (Ferrous Sulfate 324 Mg Tablet.Dr) 324 mg PO DAILY [facility] Last Admin: 04/16/25 08:18 Dose: 324 mg Documented By: ELIZABETH Lidocaine (Lidocaine 4 % Patch Adh..Patch) 2 patch TRANSDERMA DAILY [facility]; Protocol Last Admin: 04/16/25 08:19 Dose: 2 patch Documented By: ELIZABETH Magnesium Hydroxide (Milk Of Magnesia 30 Ml Oral.Susp) 30 ml PO DAILY PRN PRN Reason: Constipation Melatonin (Melatonin 3 Mg Tablet) 6 mg PO BEDTIME PRN PRN Reason: Insomnia Pravastatin Sodium (Pravastatin Sodium 40 Mg Tablet) 40 mg PO DAILY [facility] Last Admin: 04/16/25 08:18 Dose: 40 mg Documented By: ELIZABETH Sodium Chloride (0.9 % Sodium Chloride Flush 3 Ml Syringe) 3 ml IVFLUSH QSHIFT [facility] Last Admin: 04/16/25 08:19 Dose: 3 ml Documented By: ELIZABETH Tramadol HCl (Tramadol Hcl 50 Mg Tablet) 25 mg PO Q6H PRN PRN Reason: Pain, Severe (Pain Scale 7-10) Last Admin: 04/15/25 14:07 Dose: 25 mg Documented By: GODWIN Labs 04/16/25 09:05 04/16/25 09:05 Labs: Laboratory Results - last 24 hr 04/16/25 09:05 MCV 73.2 L MCH 22.3 L MCHC 30.5 L RDW 17.9 H Plt Count 763 H MPV 8.4 L Absolute Nucleated RBC 0.000 Nucleated RBC % (auto) 0.0 Assessment and Plan (1) Syncope: Status: Acute (2) Multiple falls: Status: Acute Plan Assessment: 80-year-old female who presents to the hospital after fall as well as aphasia with last known normal yesterday. with CT imaging done showing remote left basal ganglia infarct as well as chronic microvascular ischemic disease Impression Aphasia, suspect CVA Dysphagia Syncope with mechanical fall Hyperlipidemia, chronic Ambulatory dysfunction and generalized weakness Adult failure to thrive Acute on chronic anemia of chronic disease, s/p Blood transfusion given with improvement of Hb, improved Thrombocytosis Restless leg syndrome Left knee pain Plan Head CTA with remote left basal ganglia infarct as well as chronic microvascular ischemic disease TTE done on 01/12/2025 showed EF of 50-55%, pacemaker in place MRI ordered, possible for today, awaiting to coordinate with [employer] rep Continue with statin, will continue with ASA and Protonix Telemetry Neurology consulted P.T./OT We will hold off on anticoagulation at this time, given multiple falls with trauma await for MRI Consulted hematology/oncology for thrombocytosis SCDs ordered continue tylneol, lidocaine patch and PRN tramadol FEN: NI, replete as needed, modified diet to eat with supervision GI PPx: Protonix DVT PPx: SCDs Code Status: Full Code Disposition: All questions and concerns with the patient were answered to satisfaction. All pertinent clinical documents, images and labs were reviewed. Total time managing care of this patient today: 55 minutes. Quality Stroke Does the patient have a stroke diagnosis?: No VTE Prior VTE?: No VTE Risk Level:: Medical - moderate - high VTE Device Contraindication: N/A - Device Ordered VTE Drug Contraindication: Treatment Not Indicated
[2025-04-16 09:29] LABS: Alanine Aminotransferase 19 U/L (0-31); Albumin Level 3.1 g/dL (3.5-5.0); Alkaline Phosphatase 48 U/L (39-117); Anion Gap 13 (12-20); Aspartate Amino Transferase 47 U/L (5-31); Blood Urea Nitrogen 16 mg/dL (9-16); Calcium 8.6 mg/dL (8.4-10.2); Carbon Dioxide 25 mmol/L (22-29); Chloride 99 mmol/L (96-108); Creatinine Clr Calc Pharmacy 63.0; Estimated Glomerular Filt Rate > 60; Potassium 4.1 mmol/L (3.3-5.1); Sodium 133 mmol/L (135-145); Total Protein 6.7 g/dL (6.5-8.0)
--- NOTE | 2025-04-16 11:39 | MHC.SL.SWA ---
Speech Pathologist Impression: Mild to moderate oropharyngeal dysphagia characterized by L sided weakness/asymmetry Risk of Aspiration Due to: Recent CVA Weakness Hemiplegia Dysphasia Diet Status: Liquid Consistency and Strategies for Safe Swallow: Liquid Intake Recommendation: [place] Thick Liquid Intake Strategies: Small Sips No Straws Double Swallow Solid Food Consistency: Dietary Recommendations: Grnd/Mech Altered (NDD2) Additional Modifications to Solid Foods: Oral Medication Intake: Crushed with Puree Please contact the pharmacy regarding appropriate crushable or liquid drug formulations that are available whenever modified delivery is recommended. Compensatory Strategies and Precautions to be Taken for Safe Swallow: Sitting Upright (90 deg) Double Swallow No Straw Liquids from Cup Small Bites and Sips Alternate Liquids/Solids Rate of Ingestion Change Supervision While Eating and Drinking for Safe Swallow: Direct Supervision (1:1) Foods to Avoid: Swallowing Recommended Treatments: Oral Motor Exercises Base of Tongue Exercises Compens. Strategy Educat. Vocal Cord Adduction Exer Recommendation for Speech: Inpatient Speech Therapy Comment: Pt seen for dysphagia treatment, pt sitting up in chair, alert and communicative. Pt experiencing moderate to significant pain bilaterally in knees. RN and PANEL FLOW MACHINE OPERATOR assisting. Oromotor ROM moderately impaired d/t L sided facial weakness. Pt able to pucker and protrude lips, retract lips into smile and protrude tongue but not at midline. L sided buccal weakness and lateralization of tongue evident. engine repairer production provided OM exercise cues verbally, pt to continue exercises OM ROM with alternating pucker/smile sequences. Pt is currently on NDD2 diet with NTL. Trials of thins presented. Pt exhibited mild anterior loss of thins by cup sip on L side of mouth, and elicited cough s/p second trial. Pt is not ready to advance liquid consistency d/t overt s/s of aspiration. No changes to diet at this time, pt in agreement. Pt verbalized understanding of and agreed with CERTIFIED NOVELL ADMINISTRATOR tx in addressing both dysphagia and dysarthria. Frequency/Duration: Daily M-F Date Range for Service Req: Timeline to reassess: Call Center Dispatcher Clinican/Clinical Fellow: No Supervisory Statement: I have reviewed and agree with the student/clinical fellow's documentation: N/A Speech Language Pathologist: Denise Addison M.S., [facility]-CERTIFIED NOVELL ADMINISTRATOR
[2025-04-16 11:57] VITALS: BP 129/62; PULSE 104; RESP 18; TEMP 37.2; O2SAT 98
--- NOTE | 2025-04-16 15:48 | MHC.CM.PN ---
Pt. not ready to DC, getting MRI today, DCP: STR, 2 SNFs following.
[2025-04-16 16:00] VITALS: BP 123/65; PULSE 104; RESP 18; TEMP 36.3; O2SAT 97
[2025-04-16 19:57] VITALS: BP 127/70; PULSE 114; RESP 17; TEMP 36.4; O2SAT 95
[2025-04-17] VITALS (11 sets, daily range): BP systolic 116–156; BP diastolic 59–77; PULSE 98–120; RESP 16–20; TEMP 36.2–36.9; O2SAT 93–97
[2025-04-17] MEDS: Lidocaine 4 % Patch ADH..PATCH 2 PATCH TRANSDERMA (09:00)
[2025-04-17] MEDS: 0.9 % Sodium Chloride Flush 3 ML SYRINGE IVFLUSH ×3 (09:00→23:06)
[2025-04-17] MEDS: Ferrous Sulfate 324 MG TABLET.DR PO (09:00)
[2025-04-17 09:17] LABS: Hematocrit 27.5 % (37.0-47.0); Hemoglobin 8.3 g/dl (12.0-16.0); Mean Corpuscular HGB Conc 30.2 g/dl (31.0-35.0); Mean Corpuscular Hemoglobin 22.5 pg (27.0-33.0); Mean Corpuscular Volume 74.5 fL (80.0-98.0); NRBC Abs Auto 0.000 X10*3/uL (0.0-0.012); NRBC Pct Auto 0.0 /100WBC (0.0-0.2); Platelet Count 780 X10*3/uL (160-400); Red Blood Count 3.69 X10*6/uL (4.20-5.50); White Blood Count 7.8 X10*3/uL (4.8-10.8)
--- NOTE | 2025-04-17 10:42 | MHC.CM.PN ---
CM spoke with pt. today re: DCP to [facility], she is in agreement, CM requested they start auth.
--- NOTE | 2025-04-17 11:52 | MHC.CM.PN ---
BAO was asked to see pt. by a visitor, Ty, he works for [employer], is an assistance for Yoli's son who has a developmental disability. Yoli gave BAO permission to discuss her care and DCP with Ty. Ty said that the 2 people listed on Yoli's HCP are not in touch with her. Yoli said she would like to Ty to andi here HCP, Ty said he is not sure if this is OK with where he works, he will look into it and get back to case management.
--- NOTE | 2025-04-17 12:20 | P.PNHO-ONC_ITS ---
Medical Summary - Medical Summary Date of Service: 04/17/25 Chief complaint: Speech problem/stroke Primary Care Provider: Burke Vazquez PA-C Print Machine Operator Utilized?: No - Chilean Speaking Interval History Interval history: Yoli Londono is a 80 year old female past medical history significant for chronic microcytic anemia, rheumatoid arthritis osteoporosis, hyperparathyroidism status post parathyroidectomy and small bowel telangiectasias who is currently admitted for probable stroke. She presented to the ED after having had a fall and hit the back of her head. She has been having dysarthria for 2 days. Patient states that she lives alone. She is aware of anemia but does not recall being told of elevated platelets. She says she has been taking baby aspirin daily. Further workup in the ED with CTA revealed left basal ganglia infarct, chronic microvascular ischemic changes. Transthoracic echo from January showed an EF of 50-55% with pacemaker in place. Blood work was significant for microcytic anemia with a hemoglobin of 7.8 gram/dL and platelets over 600. She denies hematochezia or melena. She has had brain MRI. 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 Surgical History: Surgical History (Last Reviewed 04/13/25 @ 09:32 by Sera Chamorro PT) H/O parathyroidectomy S/P appendectomy Status post hip surgery Social History: Social History (Last Reviewed 04/12/25 @ 13:27 by Mushtaq Dias MD) Living Situation History: Household Members: None Housing: Apartment Housing Other:: 3rd floor Are you a primary healthcare consultant to a significant other at home: No Do you presently have visiting nurse or other home services: No Tobacco History: Patient Tobacco Use Status: Never used Tobacco Tobacco use type: Cigarette Cigarette Packs Per Day: 0.5 Years Smoked: 59 e-Cigarette/Vaping Use: Currently Using Second Hand Smoke Exposure: No Advance Directives: Advance Directives Date on File: 09/10/23 Occupation Assessmet: service: No Current occupational status: retired 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 Current occupational exposures/hazards: No Home Medications and Allergies Current Medications: Current Medications Acetaminophen (Acetaminophen 325 Mg Tablet) 650 mg PO Q6H PRN PRN Reason: Pain, Mild 1-3,fever,headache Last Admin: 04/17/25 02:33 Dose: 650 mg Aspirin (Aspirin 81 Mg Tab.Chew) 81 mg PO DAILY [facility] Last Admin: 04/17/25 09:00 Dose: 81 mg Calcium Carbonate (Calcium Carbonate 750 Mg Tab.Chew) 750 mg PO Q4H PRN PRN Reason: Heartburn Cyanocobalamin (Cyanocobalamin (Vitamin B-12) 1,000 Mcg/Ml Vial) 1,000 mcg IM Q7D [facility] Stop: 05/08/25 08:46 Last Admin: 04/17/25 09:04 Dose: 1,000 mcg Ferrous Sulfate (Ferrous Sulfate 324 Mg Tablet.Dr) 324 mg PO DAILY [facility] Last Admin: 04/17/25 09:00 Dose: 324 mg Lidocaine (Lidocaine 4 % Patch Adh..Patch) 2 patch TRANSDERMA DAILY [facility]; Protocol Last Admin: 04/17/25 09:00 Dose: 2 patch Magnesium Hydroxide (Milk Of Magnesia 30 Ml Oral.Susp) 30 ml PO DAILY PRN PRN Reason: Constipation Melatonin (Melatonin 3 Mg Tablet) 6 mg PO BEDTIME PRN PRN Reason: Insomnia Pravastatin Sodium (Pravastatin Sodium 40 Mg Tablet) 40 mg PO DAILY [facility] Last Admin: 04/17/25 09:00 Dose: 40 mg Sodium Chloride (0.9 % Sodium Chloride Flush 3 Ml Syringe) 3 ml IVFLUSH QSHIFT [facility] Last Admin: 04/17/25 09:00 Dose: 3 ml Tramadol HCl (Tramadol Hcl 50 Mg Tablet) 25 mg PO Q6H PRN PRN Reason: Pain, Severe (Pain Scale 7-10) Last Admin: 04/17/25 00:15 Dose: 25 mg Home Medications ?Medication ?Instructions ?Recorded ?Confirmed ?Type omeprazole 20 mg capsule,delayed 20 mg PO DAILY@0630 09/19/24 04/12/25 Hi story release amlodipine 5 mg tablet 5 mg PO DAILY 01/04/25 04/12/25 History ropinirole 1 mg tablet 2 mg PO TID PRN Restless Leg(S) 01/04/25 04/12/25 History ferrous sulfate 325 mg (65 mg 325 mg PO DAILY 03/09/25 04/12/25 Histor y iron) tablet (Feosol) Allergies Allergy/AdvReac Type Severity Reaction Status Date / Time oxycodone (From OxyContin) Allergy Mild Hives Verified 04/12/25 13:06 Primeperole Allergy Mild Hives & Uncoded 03/08/25 14:38 Swollen legs Exam Vital signs: Vital Signs Temp 97.6 F 04/17/25 11:26 Pulse 108 H 04/17/25 11:26 Resp 17 04/17/25 11:26 BP 145/71 H 04/17/25 11:26 Pulse Ox 96 04/17/25 11:26 O2 Del Method Room Air 04/17/25 11:26 Intake & Output 04/16/25 04/17/25 04/17/25 18:59 06:59 18:59 Intake Total 400 / 400 Output Total 400 / 1450 1050 / 1450 Balance 0 / -1050 -1050 / -1050 Urine Output (Average ml/kg/hr) 0.68 1.79 1.79 Intake: Intake, Oral Amount 400 / 400 Output: Output, Urine Amount 400 / 1450 1050 / 1450 Other: Breakfast % Eaten 100% Lunch % Eaten 75% Eating (Feeding) Ability 1:1 Feed Urine purewick purewick Urine Color Tea Yellow Last Bowel Movement 04/15/25 04/15/25 04/15/25 Weight 49 kg BMI result Body Mass Index 21.1 - Constitutional Present: no acute distress, chronically ill appearing - Routine HEENT Exam Head: Present: normal inspection - Routine Respiratory Exam Absent: accessory muscle use, wheezes - Routine Cardiovascular Exam Cardiovascular: Present: S1, S2 - Routine Abdominal Exam Absent: mass - Routine Extremities Exam Present: pulses intact - Detailed Neurological Exam: Coma Scale Eye Opening: Spontaneous (4) Data - Labs CBC & Chem 7: 04/17/25 09:06 04/16/25 09:05 Labs: Laboratory Last Values WBC 7.8 X10*3/uL (4.8-10.8) 04/17/25 09:06 RBC 3.69 X10*6/uL (4.20-5.50) L 04/17/25 09:06 Hgb 8.3 g/dl (12.0-16.0) L 04/17/25 09:06 Hct 27.5 % (37.0-47.0) L 04/17/25 09:06 MCV 74.5 fL (80.0-98.0) L 04/17/25 09:06 MCH 22.5 pg (27.0-33.0) L 04/17/25 09:06 MCHC 30.2 g/dl (31.0-35.0) L 04/17/25 09:06 RDW 17.8 % (11.0-16.0) H 04/17/25 09:06 Plt Count 780 X10*3/uL (160-400) H 04/17/25 09:06 MPV 8.4 fL (9.4-12.3) L 04/17/25 09:06 Immature Gran % (Auto) 1.0 % (0.0-0.4) H 04/15/25 06:42 Neut % (Auto) 75.5 % (45-73) H 04/15/25 06:42 Lymph % (Auto) 10.6 % (20-40) L 04/15/25 06:42 [place] % (Auto) 10.9 % (2-11) 04/15/25 06:42 Eos % (Auto) 1.8 % (0-4) 04/15/25 06:42 Baso % (Auto) 0.2 % (0-2) 04/15/25 06:42 Lymph # (Auto) 1.2 X10*3/uL (1.2-4.9) 04/15/25 06:42 [place] # (Auto) 1.2 X10*3/uL (0.1-1.2) 04/15/25 06:42 Eos # (Auto) 0.2 X10*3/uL (0.0-0.4) 04/15/25 06:42 Baso # (Auto) 0.0 X10*3/uL (0.0-0.2) 04/15/25 06:42 Abs Immat Gran (auto) 0.11 X10*3/uL (0.00-0.03) H 04/15/25 06:42 Absolute Neuts (auto) 8.2 x10*3/uL (2.0-8.3) 04/15/25 06:42 Absolute Nucleated RBC 0.000 X10*3/uL (0.0-0.012) 04/17/25 09:06 Nucleated RBC % (auto) 0.0 /100WBC (0.0-0.2) 04/17/25 09:06 Absolute Retic 0.058 X10*6/uL (0.026-0.095) 04/13/25 21:38 Percent Retic 1.5 % (0.5-1.8) 04/13/25 21:38 Immature Retic Fraction 28.9 % (3.0-15.9) H 04/13/25 21:38 Retic Hgb Equivalent 19.3 pg (30.0-35.0) L 04/13/25 21:38 Sodium 133 mmol/L (135-145) L 04/16/25 09:05 Potassium 4.1 mmol/L (3.3-5.1) 04/16/25 09:05 Chloride 99 mmol/L (96-108) 04/16/25 09:05 Carbon Dioxide 25 mmol/L (22-29) 04/16/25 09:05 Anion Gap 13 (12-20) 04/16/25 09:05 BUN 16 mg/dL (9-16) 04/16/25 09:05 Creatinine 0.52 mg/dL (0.5-1.4) 04/16/25 09:05 Estim Creat Clear Calc 63.0 04/16/25 09:05 Estimated GFR > 60 04/16/25 09:05 Random Glucose 114 mg/dL (60-115) 04/16/25 09:05 Haptoglobin 331 mg/dL (63-273) H 04/13/25 14:26 Lactic Acid 1.3 mmol/L (0.5-2.0) 04/12/25 13:44 Calcium 8.6 mg/dL (8.4-10.2) 04/16/25 09:05 Iron 14 mcg/dL (30-160) L 04/13/25 08:11 TIBC 222 mcg/dL (228-428) L 04/13/25 08:11 % Saturation 6 % (15-50) L 04/13/25 08:11 Unsat Iron Binding 208 ug/dL 04/13/25 08:11 Ferritin 64 ng/mL (10-250) 04/13/25 08:11 Total Bilirubin 0.5 mg/dL (0.0-1.0) 04/16/25 09:05 Direct Bilirubin 0.1 mg/dL (0.0-0.5) 04/12/25 13:44 AST 47 U/L (5-31) H 04/16/25 09:05 ALT 19 U/L (0-31) 04/16/25 09:05 Alkaline Phosphatase 48 U/L (39-117) 04/16/25 09:05 Lactate Dehydrogenase 218 U/L (122-220) 04/13/25 14:26 Troponin I High Sens 6.4 ng/L (<3.5-17.0) D 04/12/25 13:44 Total Protein 6.7 g/dL (6.5-8.0) 04/16/25 09:05 Albumin 3.1 g/dL (3.5-5.0) L 04/16/25 09:05 Triglycerides 92 mg/dL (<150) 04/13/25 06:38 Cholesterol 111 mg/dL (<200) 04/13/25 06:38 LDL Cholesterol, Calc 56 mg/dL (<100) 04/13/25 06:38 HDL Cholesterol 37 mg/dL (>40) L 04/13/25 06:38 Lipase 15 U/L (8-78) 04/12/25 13:44 Vitamin B12 190 pg/mL (200-900) L 04/13/25 14:26 Folate 7.6 ng/mL (> or = 4.0) 04/13/25 14:26 TSH 1.03 uIU/mL (0.32-4.0) 04/13/25 06:38 Urine Color Yellow 04/12/25 17:32 Urine Appearance Clear 04/12/25 17:32 Urine pH 5.5 (5.0-9.0) 04/12/25 17:32 Ur Specific [place] 1.020 (1.005-1.025) 04/12/25 17:32 Urine Protein Trace mg/dL (Neg-Trace) 04/12/25 17:32 Urine Glucose (UA) Negative mg/dL (Negative) 04/12/25 17:32 Urine Ketones Negative mg/dL (Negative) 04/12/25 17:32 Urine Blood Negative (Negative) 04/12/25 17:32 Urine Nitrite Negative (Negative) 04/12/25 17:32 Ur Leukocyte Esterase Negative (Negative) 04/12/25 17:32 Blood Type A Positive 04/13/25 12:04 Antibody Screen POSITIVE 04/13/25 12:04 Antibody Identification Inconclusive 04/13/25 12:04 Crossmatch (AHG) See Detail 04/13/25 12:04 Blood Bank Comment Technical 04/13/25 12:04 - Imaging Radiologist's impression: ITS Impressions Hip/Pelvis X-Ray 04/12/25 14:12 IMPRESSION: * Postsurgical changes of the right hip, with orthopedic hardware in the proximal femur. No findings to suggest hardware complications. * No radiographic evidence of acute fracture or malalignment of the right hip. Clinically correlate. * No acute fracture is otherwise identified. Electronically signed by: Eran Barreto MD 04/12/2025 02:25 PM EST RP Chest X-Ray 04/12/25 14:13 IMPRESSION: No acute cardiopulmonary abnormality. Electronically signed by: Mesfin Emmanuel MD 04/12/2025 02:24 PM EST RP Knee X-Ray 04/14/25 11:10 IMPRESSION: Small joint effusion. Otherwise unremarkable examination of the left knee. Electronically signed by: Mesfin Emmanuel MD 04/16/2025 07:40 AM EST RP Brain MRI 04/16/25 14:43 IMPRESSION: Acute nonhemorrhagic ischemia/stroke, right frontal opercular region/right MCA distribution likely embolic. Extensive white matter disease and multifocal old lacunar infarcts. Consider small vessel occlusive disease. Old hemorrhagic lacunar infarct, left frontal schwartz radiata white matter/suprainsular/extracapsular. Findings communicated to the requesting physician Dr. Chad Potter via [employer] on April 26, 2025 at 3:32 PM. Responded received. Electronically signed by: Lloyd Vidales MD 04/16/2025 03:34 PM EST RP Assessment and Plan Patient Active problem list reviewed?: Yes (1) Thrombocytosis Status: Acute Assessment and plan: 1. This is a 80-year-old woman with past medical history significant for chronic iron-deficiency anemia, COPD, paroxysmal atrial fibrillation, chronic thrombocytosis who is admitted for acute CVA. Brain MRI shows acute nonhemorrhagic/ischemic stroke in the right frontal/right MCA distribution likely embolic. Hematology consultation has been called because of microcytic anemia and thrombocytosis. This has been chronic and present for many years. She has a history of GI bleeding secondary to bowel telangiectasias. She has had 6 blood transfusions in 2024. Her thrombocytosis has been gradually worsening. Although reactive thrombocytosis secondary to iron-deficiency is a possibility, given the probability of stroke, further testing for essential thrombocytosis/myeloproliferative disorder has to be carried out. I have submitted JAK2 mutation. No prior history of thromboembolism. Lower extremity Doppler in February 2025 was negative for DVT. Patient states that she has been taking a baby aspirin which should be continued. Transfuse blood to keep hemoglobin around 9 gram/dL. If she does have essential thrombocytosis, she would be candidate for cytoreduction with hydroxyurea. 2. Anemia secondary to iron-deficiency as well as vitamin B12 deficiency. She has history of GI bleeding and therefore not on anticoagulation for her paroxysmal atrial fibrillation. Continue oral iron, start vitamin B12 supplementation. Thank you for the consultation, will follow with you. - Time Spent With Patient Time Spent with Patient (in minutes): 10
--- NOTE | 2025-04-17 14:26 | HO.PM.IMPN ---
Subjective Subjective Date of Service: 04/17/25 Interval History: Patient seen examined at bedside this morning, MRI showing acute nonhemorrhagic ischemic/stroke, right frontal opercular region/right MCA distribution likely embolic, extensive white matter disease and multifocal old lacunar infarcts, old hemorrhagic lacunar infarct in left frontal schwartz radiata white matter supra-annular extracapsular. Patient having left knee pain, plans on possible discharge to subacute rehab. Patient today with bilateral rales and cough. Review of Systems Review of Systems: Yes all other systems are reviewed and are negative Physical Exam Exam: Exam: General: AxOx3, No acute distress, frail Head: AT/NC ENT: Moist mucous membranes Neck: supple CVS; RRR, S1 S2 normal Lungs: Bilateral rales Abd: Soft non tender, non distended Ext: No edema and no calf tenderness, left knee pain MSK: moving all 4 limbs Skin: No cyanosis or edema Psych: Cooperative with exam Neurology: Aphasia, dysarthria, bilateral lower extremity weakness 3/5 Vital Signs: Vital Signs: Last Vital Signs Temp 97.6 F 04/17/25 11:26 Pulse 108 H 04/17/25 11:26 Resp 17 04/17/25 11:26 BP 145/71 H 04/17/25 11:26 Pulse Ox 96 04/17/25 11:26 O2 Del Method Room Air 04/17/25 11:26 BMI result Body Mass Index 21.1 Objective Data Active Medications Acetaminophen (Acetaminophen 325 Mg Tablet) 650 mg PO Q6H PRN PRN Reason: Pain, Mild 1-3,fever,headache Last Admin: 04/17/25 02:33 Dose: 650 mg Documented By: HEATH Apixaban (Apixaban 5 Mg Tablet) 5 mg PO BID [facility] Calcium Carbonate (Calcium Carbonate 750 Mg Tab.Chew) 750 mg PO Q4H PRN PRN Reason: Heartburn Cyanocobalamin (Cyanocobalamin (Vitamin B-12) 1,000 Mcg/Ml Vial) 1,000 mcg IM Q7D [facility] Stop: 05/08/25 08:46 Last Admin: 04/17/25 09:04 Dose: 1,000 mcg Documented By: YAS Ferrous Sulfate (Ferrous Sulfate 324 Mg Tablet.) 324 mg PO DAILY [facility] Last Admin: 04/17/25 09:00 Dose: 324 mg Documented By: YAS Lidocaine (Lidocaine 4 % Patch Adh..Patch) 2 patch TRANSDERMA DAILY [facility]; Protocol Last Admin: 04/17/25 09:00 Dose: 2 patch Documented By: YAS Magnesium Hydroxide (Milk Of Magnesia 30 Ml Oral.Susp) 30 ml PO DAILY PRN PRN Reason: Constipation Melatonin (Melatonin 3 Mg Tablet) 6 mg PO BEDTIME PRN PRN Reason: Insomnia Pravastatin Sodium (Pravastatin Sodium 40 Mg Tablet) 40 mg PO DAILY [facility] Last Admin: 04/17/25 09:00 Dose: 40 mg Documented By: YAS Sodium Chloride (0.9 % Sodium Chloride Flush 3 Ml Syringe) 3 ml IVFLUSH QSHIFT [facility] Last Admin: 04/17/25 09:00 Dose: 3 ml Documented By: YAS Tramadol HCl (Tramadol Hcl 50 Mg Tablet) 25 mg PO Q6H PRN PRN Reason: Pain, Severe (Pain Scale 7-10) Last Admin: 04/17/25 00:15 Dose: 25 mg Documented By: HEATH Labs 04/17/25 09:06 04/16/25 09:05 Labs: Laboratory Results - last 24 hr 04/13/25 04/17/25 12:04 09:06 MCV 74.5 L MCH 22.5 L MCHC 30.2 L RDW 17.8 H Plt Count 780 H MPV 8.4 L Absolute Nucleated RBC 0.000 Nucleated RBC % (auto) 0.0 Blood Type A Positive Antibody Screen POSITIVE Antibody Identification Inconclusive Crossmatch (AHG) See Detail Blood Bank Comment Technical Assessment and Plan (1) Syncope: Status: Acute (2) Multiple falls: Status: Acute (3) Atrial fibrillation with RVR: Status: Acute (4) CVA (cerebral vascular accident): Status: Acute Plan Assessment: 80-year-old female who presents to the hospital after fall as well as aphasia with last known normal day prior to admission. with CT imaging done showing remote left basal ganglia infarct as well as chronic microvascular ischemic disease. with MRI showing acute nonhemorrhagic ischemmic stroke likely cardioembolic, multifocal old lacunar infarcts and old hemorrhagic lacunar infarct in left schwartz radiata. 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, with prior history of lacunar infarcts and left schwartz radiata Paroxysmal atrial fibrillation Syncope with mechanical fall Hyperlipidemia, chronic Ambulatory dysfunction and generalized weakness Adult failure to thrive Acute on chronic anemia of chronic disease Thrombocytosis Restless leg syndrome Left knee pain Plan Head CTA with remote left basal ganglia infarct as well as chronic microvascular ischemic disease TTE done on 01/12/2025 showed EF of 50-55%, pacemaker in place Continue with statin Will d/c Aspirin and initiate eliquis 5mg BID, will initiate metoprolol tartrate 12.5mg BID give MRI findings, paroxysmal atrial fibrillation and prior history of orthostasis. Patient resonated understanding and importance of initiating medication for anticoagulation, as well as risks vs benefits. patient to follow up with cardiology for possible watchman procedure once appropriate Hematology and Neurology consulted P.T./OT continue tylneol, lidocaine patch and PRN tramadol FEN: NI, replete as needed, modified diet to eat with supervision GI PPx: Protonix DVT PPx: SCDs and Eliquis 5mg Code Status: Full Code Disposition: All questions and concerns with the patient were answered to satisfaction. All pertinent clinical documents, images and labs were reviewed. Total time managing care of this patient today: 55 minutes. Quality Stroke Does the patient have a stroke diagnosis?: No VTE Prior VTE?: No VTE Risk Level:: Medical - moderate - high VTE Device Contraindication: N/A - Device Ordered VTE Drug Contraindication: Treatment Not Indicated
[2025-04-17] MEDS: Metoprolol Tartrate 12.5 MG HALFTAB PO ×2 (15:15→20:22)
[2025-04-17 16:44] LABS: Resp Syncy Virus RNA Qual PCR NEGATIVE (Negative); SARS COV2 PCR INHOUSE NEGATIVE (Negative)
--- NOTE | 2025-04-17 16:48 | MHC.SLORD ---
Speech Language Pathology Order Status: FLEXOGRAPHIC PRINTING PRESS OPERATOR unable to see patient this date. RN with no concerns. Patient tolerating current diet, recommend continuing. FLEXOGRAPHIC PRINTING PRESS OPERATOR to follow.
[2025-04-18 03:11] VITALS: BP 156/83; PULSE 105; RESP 16; TEMP 36.4; O2SAT 94
[2025-04-18 07:50] LABS: Hematocrit 29.5 % (37.0-47.0); Hemoglobin 9.4 g/dl (12.0-16.0); Mean Corpuscular HGB Conc 31.9 g/dl (31.0-35.0); Mean Corpuscular Hemoglobin 23.6 pg (27.0-33.0); Mean Corpuscular Volume 73.9 fL (80.0-98.0); NRBC Abs Auto 0.000 X10*3/uL (0.0-0.012); NRBC Pct Auto 0.0 /100WBC (0.0-0.2); Platelet Count 767 X10*3/uL (160-400); Red Blood Count 3.99 X10*6/uL (4.20-5.50); White Blood Count 7.8 X10*3/uL (4.8-10.8)
[2025-04-18 08:00] VITALS: BP 148/71; PULSE 112; RESP 16; TEMP 36.1; O2SAT 94
[2025-04-18] MEDS: Lidocaine 4 % Patch ADH..PATCH 2 PATCH TRANSDERMA (08:30)
[2025-04-18] MEDS: Ferrous Sulfate 324 MG TABLET.DR PO (08:33)
[2025-04-18] MEDS: Metoprolol Tartrate 12.5 MG HALFTAB PO ×2 (08:33→21:36)
[2025-04-18] MEDS: 0.9 % Sodium Chloride Flush 3 ML SYRINGE IVFLUSH ×3 (08:34→21:44)
[2025-04-18 10:59] VITALS: BP 117/56; PULSE 86; RESP 18; TEMP 36.2; O2SAT 92
--- NOTE | 2025-04-18 13:51 | MHC.CM.PN ---
Pt. not ready to DC, awaiting eval from Neurology. DCP: is STR at [facility] [place], auth is pending.
[2025-04-18 14:03] LABS: Anion Gap 11 (12-20); Blood Urea Nitrogen 19 mg/dL (9-16); Calcium 9.0 mg/dL (8.4-10.2); Carbon Dioxide 26 mmol/L (22-29); Chloride 100 mmol/L (96-108); Creatinine Clr Calc Pharmacy 61.8; Estimated Glomerular Filt Rate > 60; Magnesium 2.0 mg/dL (1.6-2.6); Potassium 4.7 mmol/L (3.3-5.1); Sodium 132 mmol/L (135-145)
--- NOTE | 2025-04-18 15:50 | MHC.SLORD ---
Speech Language Pathology Order Status: No SUPERVISOR POST WAVE tx this day. SUPERVISOR POST WAVE following as indicated. Recc diet as ordered NDD2 with NTL.
[2025-04-18] MEDS: guaiFENesin DM 200/20/10 ML 10 ML SYRUP PO (16:44)
[2025-04-18 20:00] VITALS: BP 130/78; PULSE 105; RESP 18; TEMP 37.3; O2SAT 94
[2025-04-19] VITALS: BP 165/66; PULSE 108; RESP 18; TEMP 36.8; O2SAT 96
--- NOTE | 2025-04-19 | ECG_ITS ---
Test Reason : tachycardia Blood Pressure : */* mmHG Vent. Rate : 122 BPM Atrial Rate : 122 BPM P-R Int : 128 ms QRS Dur : 76 ms QT Int : 324 ms P-R-T Axes : 77 37 85 degrees QTcB Int : 461 ms Sinus tachycardia Nonspecific ST and T wave abnormality Abnormal ECG When compared with ECG of 12-Apr-2025 13:59, No significant change was found Referred By: Paradise Rosado Electronically Signed By: AGUSTÍN EUGENE MD
[2025-04-19 03:30] VITALS: BP 158/88; PULSE 127; RESP 20; TEMP 37.1; O2SAT 94
[2025-04-19 04:27] LABS: Hematocrit 29.1 % (37.0-47.0); Hemoglobin 9.3 g/dl (12.0-16.0); Mean Corpuscular HGB Conc 32.0 g/dl (31.0-35.0); Mean Corpuscular Hemoglobin 23.5 pg (27.0-33.0); Mean Corpuscular Volume 73.5 fL (80.0-98.0); NRBC Abs Auto 0.000 X10*3/uL (0.0-0.012); NRBC Pct Auto 0.0 /100WBC (0.0-0.2); Platelet Count 790 X10*3/uL (160-400); Red Blood Count 3.96 X10*6/uL (4.20-5.50); White Blood Count 11.7 X10*3/uL (4.8-10.8)
[2025-04-19 04:40] LABS: Alanine Aminotransferase 23 U/L (0-31); Albumin Level 3.1 g/dL (3.5-5.0); Alkaline Phosphatase 62 U/L (39-117); Anion Gap 14 (12-20); Aspartate Amino Transferase 35 U/L (5-31); Blood Urea Nitrogen 23 mg/dL (9-16); Calcium 8.6 mg/dL (8.4-10.2); Carbon Dioxide 23 mmol/L (22-29); Chloride 98 mmol/L (96-108); Creatinine Clr Calc Pharmacy 56.4; Estimated Glomerular Filt Rate > 60; Potassium 4.3 mmol/L (3.3-5.1); Sodium 131 mmol/L (135-145); Total Protein 6.7 g/dL (6.5-8.0)
[2025-04-19 04:46] LABS: Troponin-I High Sensitivity 5.0 ng/L (<3.5-17.0)
[2025-04-19 07:11] VITALS: BP 135/71; PULSE 120; RESP 18; TEMP 36.4; O2SAT 91
[2025-04-19] MEDS: Metoprolol Tartrate 12.5 MG HALFTAB PO (11:19)
[2025-04-19] MEDS: Lidocaine 4 % Patch ADH..PATCH 2 PATCH TRANSDERMA (11:19)
[2025-04-19] MEDS: Ferrous Sulfate 324 MG TABLET.DR PO (11:19)
--- NOTE | 2025-04-19 11:23 | MHC.SL.SWA ---
Speech Pathologist Impression: Risk of Aspiration, Oropharyngeal Dysphagia, Dysarthria Risk of Aspiration Due to: Acute CVA Dysphasia Diet Status: Allow soft bread sandwiches w/o crust Liquid Consistency and Strategies for Safe Swallow: Liquid Intake Recommendation: Ignacio Thick Liquid Intake Strategies: Small Sips No Straws Double Swallow Solid Food Consistency: Dietary Recommendations: Grnd/Mech Altered (NDD2) Additional Modifications to Solid Foods: Patient is permitted soft sandwiches (i.e. chicken salad, tuna salad, pb&j) from the kitchenette (remove crusts) w/ PLACEMENT OFFICER studio set up worker assistance Recc strategies for oral clearance: small bites, check oral cavity periodically, dry swallow between bites and/or alternate w/ sips of liquid to clear residue Oral Medication Intake: Crushed with Puree Please contact the pharmacy regarding appropriate crushable or liquid drug formulations that are available whenever modified delivery is recommended. Compensatory Strategies and Precautions to be Taken for Safe Swallow: Sitting Upright (90 deg) Double Swallow No Straw Liquids from Cup Small Bites and Sips Alternate Liquids/Solids Rate of Ingestion Change Supervision While Eating and Drinking for Safe Swallow: Direct Supervision (1:1) Swallowing Recommended Treatments: Oral Motor Exercises Base of Tongue Exercises Compens. Strategy Educat. Vocal Cord Adduction Exer Recommendation for Speech: Inpatient Speech Therapy Comment: Patient presents with mild to moderate oropharyngeal dysphagia, marked by L-facial droop and subsequently week labial seal, spillage of thin liquids from the oral cavity, and coughing on thin liquids. Patient w/ delayed swallow trigger, partial laryngeal elevation, and slowed mastication d/t edentulous status. Recommend UPGRADE from diet ordered per MD to GROUND/MECH ALTERED (NDD2) and NECTAR THICK liquids, pills CRUSHED in PUREE. Encourage independence self-feeding when possible, patient WILL need assistance w/ tray set up and throughout meal to ensure utensils and food items are accessible/within reach, containers opened, etc. Frequency/Duration: Daily M-F Date Range for Service Req: Timeline to reassess: Equal Opportunity Director Clinican/Clinical Fellow: No Supervisory Statement: I have reviewed and agree with the student/clinical fellow's documentation: N/A Speech Language Pathologist: Abena Sánchez M.A., CCC-PLACEMENT OFFICER
[2025-04-19] MEDS: 0.9 % Sodium Chloride Flush 3 ML SYRINGE IVFLUSH (11:27)
[2025-04-19 11:33] VITALS: BP 129/74; PULSE 112; RESP 22; TEMP 36.6; O2SAT 94
--- NOTE | 2025-04-19 11:39 | MHC.CM.PN ---
Second IMM, pt. has been medically cleared, she will go to STR at [facility] [place] this afternoon via BLS.
--- NOTE | 2025-04-19 15:08 | PM.DS ---
DS: Providers Provider Date of admission: 04/12/25 18:46 Date of discharge: 04/19/25 Primary care physician: Burke Vazquez PA-C Consults: 04/12/25 19:15 Consult to Neurology Routine Consulting Provider: [facility] Reason for consultation: aphasia Has provider been notified: No 04/13/25 11:51 Consult to Hematology / Oncology Routine Consulting [place] [facility] [place] Reason for consultation: thrombocytosis Has provider been notified: No DS: Diagnosis Discharge Diagnosis (1) Syncope: Status: Acute (2) Multiple falls: Status: Acute (3) Atrial fibrillation with RVR: Status: Acute (4) CVA (cerebral vascular accident): Status: Acute DS: Summary Hospital Course Hospital Course: 80-year-old female with an history COPD no home O2, HTN, atrial fibrillation not on anticoagulation d/t GIB and severe anemia,, CHF s/p ppm, active smoker, rheumatoid arthritis, h/o pericardial effusion, presented with with fall and aphaseia. CT of head revealed a removte left basal ganglia infarct. MRI showing acute nonhemorrhagic ischemmic stroke likely cardioembolic, multifocal old lacunar infarcts and old hemorrhagic lacunar infarct in left schwartz radiata. Additionally has demonstrated deconditioning and adult failure to thrive and generalized weakness. Her management has consisted of ASA, statin, ASA later added Eliquis in light on embolic stroke with AFIB and anemia hasn't been stable and thrombocytosis. Patient has been overall stable and is recommended for rehab. Problems Right MCA stroke, likely embolic from AFIB without anticoagulation, with prior history of lacunar infarcts and left schwartz radiata. Has been evaluated by Neuro and is starting on anticoagulation with eliquis despite prior history of Anemia, GIB. H and H and H has been stable. To continue statin. PT recommend STR Paroxysmal atrial fibrillation, rate control with Metoprolol and anticoagulation as stated, risk and benefit discussd with the patient and aware of bleeding risks vs, further stroke and has opted for anticoagulation with eliquis to prevent further stroke. Syncope with mechanical fall due to frailty, adult failure to thrive, STR Hyperlipidemia, continue Statin Acute on chronic anemia of chronic disease, prior history of GI Bleeding but no indication of active bleed Thrombocytosis, possible myeloproliferative disorder seen by hematology, outpatient follow up with heme clinic Vitamin B12 deficiency, has gotten IM injection and changing to PO 1000 mcg daily Dispo: To STR Time Attestation Discharge Coordination Time (in mins): 40 Quality: Safe Use of Opioids Does Pt have an Active Cancer Diagnosis on the Problem List?: No Quality: Stroke Does the patient have a stroke diagnosis?: No Physical Exam Vital Signs: Vital Signs: Last Vital Signs Temp 97.9 F 04/19/25 11:33 Pulse 112 H 04/19/25 11:33 Resp 22 H 04/19/25 11:33 BP 129/74 04/19/25 11:33 Pulse Ox 94 04/19/25 11:33 O2 Del Method Room Air 04/19/25 11:33 BMI result Body Mass Index 21.1 DS: Data Data Completed and Pending Labs on day of discharge: Laboratory Results - last 24 hr 04/19/25 04:17 WBC 11.7 H RBC 3.96 L Hgb 9.3 L Hct 29.1 L MCV 73.5 L MCH 23.5 L MCHC 32.0 RDW 18.0 H Plt Count 790 H MPV 8.4 L Absolute Nucleated RBC 0.000 Nucleated RBC % (auto) 0.0 Sodium 131 L Potassium 4.3 Chloride 98 Carbon Dioxide 23 Anion Gap 14 BUN 23 H Creatinine 0.58 Estim Creat Clear Calc 56.4 Estimated GFR > 60 Random Glucose 118 H Lactic Acid 0.7 Calcium 8.6 Total Bilirubin 0.4 AST 35 H ALT 23 Alkaline Phosphatase 62 Troponin I High Sens 5.0 Total Protein 6.7 Albumin 3.1 L Discharge Plan Discharge Anticipated Discharge Date/Time: 04/19/25 16:03 Patient Disposition: Xfer SNF Discharge Diagnosis: Acute embolic stroke, adultr failure to thrive Referrals: [facility] [Other] - 1 Week Margarita Howard MD [Physician, Hematology & Oncology] - 2 Weeks Burke Vazquez PA-C [Primary Care Provider, Internal Medicine] - 1 Week Discharge Medications: New lidocaine [Lidocaine Pain Relief] 4 % Adhesive Patch,Medicated 2 patch transdermal DAILY MDD apply to affected area Qty: 10 0RF Protocol: Apply to: Apply to: knees melatonin 3 mg Tablet 6 mg PO BEDTIME PRN (Reason: Insomnia) Qty: 30 0RF Eliquis 5 mg Tablet 5 mg PO BID Qty: 180 0RF metoprolol tartrate 25 mg tablet 25 mg PO BID Qty: 60 0RF cyanocobalamin (vitamin B-12) [Vitamin B-12] 1,000 mcg tablet 1,000 mcg PO DAILY Qty: 90 0RF Continued omeprazole 20 mg capsule,delayed release(DR/EC) 20 mg PO DAILY@0630 ropinirole 1 mg tablet 2 mg PO TID PRN (Reason: Restless Leg(S)) ferrous sulfate [Feosol] 325 mg (65 mg iron) tablet 325 mg PO DAILY pravastatin 40 mg tablet 40 mg PO DAILY 90 Days Qty: 90 1RF Discontinued amlodipine 5 mg tablet 5 mg PO DAILY No Action (DME) blood pressure monitor Kit See Rx Instructions .Route Qty: 1 0RF Rx Instructions: check bp twice a week and when not feeling well Discharge Orders: Discharge Order (Routine); Ordered 04/19/25 Ordered By: Andre Romero Diet: Advance to usual diet Activity on Discharge: As tolerated Stand Alone Forms: Patient Portal Discharge page Print Language: Danish Care Plan Goals: recovery from stroke and adult failure to thrive Health Concerns: stroke, adult failure to thrive, afib, b12 deficicency Plan of Treatment: take all mes as recommended and follow up with PCP, hematoligst Assessment: see above
[2025-04-19 15:09] VITALS: PULSE 94
[2025-04-19 15:25] VITALS: BP 127/68; PULSE 91; RESP 16; TEMP 36.4; O2SAT 98
== END 2025-04-19 16:32 | disposition skilled nursing facility (03) | DRG 65 ==
LOC: HO.ED 18:20 → HO.EDOVER 18:50 → HO.IMC 04-13 00:14
PROVIDERS: Hospitalist; Internal Medicine; Admitting Provider Student in an Organized Health Care Education/Training Program; Emergency Provider Emergency Medicine; PCP Physician Assistant; Visit Provider Internal Medicine
DX: I63.411 Cerebral infarction due to embolism of right middle cerebral artery (principal); D47.1 Chronic myeloproliferative disease; I48.0 Paroxysmal atrial fibrillation; R53.81 Other malaise; D75.839 Thrombocytosis, unspecified; R29.6 Repeated falls; W19.XXXA Unspecified fall, initial encounter; R47.01 Aphasia; E78.5 Hyperlipidemia, unspecified; D63.8 Anemia in other chronic diseases classified elsewhere; E53.8 Deficiency of other specified B group vitamins; R62.7 Adult failure to thrive; F17.210 Nicotine dependence, cigarettes, uncomplicated; R29.700 NIHSS score 0; Z71.6 Tobacco abuse counseling; Z68.21 Body mass index [BMI] 21.0-21.9, adult; Z95.0 Presence of cardiac pacemaker; Z91.81 History of falling; Z79.899 Other long term (current) drug therapy
CPT/HCPCS: 36415; 70450; 70496; 70498; 70551; 71045; 72125; 73502; 73560; 80048; 80053; 80061; 80076; 81003; 81270; 81279; 82525; 82607; 82728; 82746; 83010; 83540; 83605; 83615; 83690; 83735; 84443; 84484; 85025; 85027; 85045; 86850; 86870; 86885; 86900; 86901; 86920; 86922; 87040; 87637; 92526; 92610; 93005; 93306; 97110; 97162; 97167; 97530; 99285; J1171; J2470; J3420; P9016; Q9957

== ENCOUNTER → 2025-04-12 13:21 | Outpatient (BNV) | payer MEDICARE, SELFPAY | PROVIDERS: Emergency Provider Emergency Medicine; PCP Physician Assistant; Visit Provider Radiology Diagnostic Radiology | DX: R47.9 Unspecified speech disturbances (principal); M25.551 Pain in right hip; Z96.698 Presence of other orthopedic joint implants; Z04.3 Encounter for examination and observation following other accident | CPT/HCPCS: 70496; 70498; 71045; 72125; 73502 ==

== ENCOUNTER → 2025-04-12 13:21 | Outpatient (BNV) | payer MEDICARE, SELFPAY | PROVIDERS: Admitting Provider Student in an Organized Health Care Education/Training Program; Emergency Provider Emergency Medicine; PCP Physician Assistant; Visit Provider Internal Medicine | DX: R00.0 Tachycardia, unspecified (principal) | CPT/HCPCS: 93010 ==

== ENCOUNTER 2025-04-12 18:46 | Outpatient (BNV) | payer MEDICARE, SELFPAY | END 2025-04-14 11:10 | PROVIDERS: Admitting Provider Student in an Organized Health Care Education/Training Program; Emergency Provider Emergency Medicine; PCP Physician Assistant; Visit Provider Radiology Diagnostic Radiology | DX: M25.462 Effusion, left knee (principal) | CPT/HCPCS: 73560 ==

== ENCOUNTER 2025-04-12 18:46 | Outpatient (BNV) | payer MEDICARE, SELFPAY | END 2025-04-16 14:43 | PROVIDERS: Admitting Provider Student in an Organized Health Care Education/Training Program; Emergency Provider Emergency Medicine; PCP Physician Assistant; Visit Provider Radiology Diagnostic Radiology | DX: I67.82 Cerebral ischemia (principal); R90.82 White matter disease, unspecified | CPT/HCPCS: 70551 ==

== ENCOUNTER 2025-04-12 18:46 | Outpatient (BNV) | payer MEDICARE, SELFPAY | END 2025-04-19 03:52 | PROVIDERS: Admitting Provider Student in an Organized Health Care Education/Training Program; Emergency Provider Emergency Medicine; PCP Physician Assistant; Visit Provider Internal Medicine Cardiovascular Disease | DX: R00.0 Tachycardia, unspecified (principal) | CPT/HCPCS: 93010 ==

== ENCOUNTER 2025-04-12 18:46 | Outpatient (BNV) | payer MEDICARE, SELFPAY | END 2025-04-13 02:36 | PROVIDERS: Admitting Provider Student in an Organized Health Care Education/Training Program; Emergency Provider Emergency Medicine; PCP Physician Assistant; Visit Provider Radiology Diagnostic Radiology | DX: R29.810 Facial weakness (principal) | CPT/HCPCS: 70450 ==

== ENCOUNTER 2025-04-12 18:46 | Outpatient (BNV) | payer MEDICARE, SELFPAY | END 2025-04-13 07:00 | PROVIDERS: Admitting Provider Student in an Organized Health Care Education/Training Program; Emergency Provider Emergency Medicine; PCP Physician Assistant; Visit Provider Internal Medicine | DX: I27.20 Pulmonary hypertension, unspecified (principal); I35.0 Nonrheumatic aortic (valve) stenosis; I34.81 Nonrheumatic mitral (valve) annulus calcification | CPT/HCPCS: 93306 ==

== ENCOUNTER 2025-04-12 18:46 | Outpatient (BNV) | payer MEDICARE, SELFPAY | END 2025-04-17 16:19 | PROVIDERS: Admitting Provider Student in an Organized Health Care Education/Training Program; Emergency Provider Emergency Medicine; PCP Physician Assistant; Visit Provider Radiology Diagnostic Radiology | DX: R09.89 Other specified symptoms and signs involving the circulatory and respiratory systems (principal) | CPT/HCPCS: 71045 ==

== ENCOUNTER → 2025-04-12 18:46 | Outpatient (BNV) | payer MEDICARE, SELFPAY | PROVIDERS: Admitting Provider Student in an Organized Health Care Education/Training Program; Emergency Provider Emergency Medicine; PCP Physician Assistant; Visit Provider Student in an Organized Health Care Education/Training Program | DX: G45.9 Transient cerebral ischemic attack, unspecified (principal); R47.01 Aphasia; R13.10 Dysphagia, unspecified; R62.7 Adult failure to thrive; R29.6 Repeated falls | CPT/HCPCS: 99222; 99233 ==

== ENCOUNTER → 2025-04-12 18:46 | Outpatient (BNV) | payer MEDICARE, SELFPAY | PROVIDERS: Admitting Provider Student in an Organized Health Care Education/Training Program; Emergency Provider Emergency Medicine; PCP Physician Assistant; Visit Provider Internal Medicine | DX: D75.839 Thrombocytosis, unspecified (principal); D50.9 Iron deficiency anemia, unspecified; D51.9 Vitamin B12 deficiency anemia, unspecified | CPT/HCPCS: 99231; 99232 ==

== ENCOUNTER → 2025-04-12 18:46 | Outpatient (BNV) | payer MEDICARE, SELFPAY | PROVIDERS: Admitting Provider Student in an Organized Health Care Education/Training Program; Emergency Provider Emergency Medicine; PCP Physician Assistant; Visit Provider Nurse Practitioner | DX: I48.91 Unspecified atrial fibrillation (principal); E78.2 Mixed hyperlipidemia; R41.82 Altered mental status, unspecified; I63.9 Cerebral infarction, unspecified | CPT/HCPCS: 99222 ==